=== PATIENT | male | born 1960 | race Caucasian/White ===

== ENCOUNTER 2019-06-14 05:43 | Inpatient (IN) ==
--- NOTE | 2019-06-06 14:45 | PAT Medication Instructions ---
Medication Instructions Date of Service June 06, 2019 Home Medications Combivent Respimat 2 puff INHALATION QID Jardiance 10 mg PO QAM Toujeo SoloStar U-300 Insulin 15 unit SUBCUT QPM Trulicity 0.75 mg SUBCUT WK albuterol sulfate 2 puff INHALATION QID NEEDED aspirin 325 mg PO QAM cilostazol 100 mg PO BID gabapentin [Neurontin] 800 mg PO BID lisinopril 40 mg PO QAM metformin 1,000 mg PO BID Chantix 1 tab PO BID Vitamin B12 1 tab PO QAM hydrocodone-acetaminophen 1 tab PO QID NEEDED Continue as directed Trulicity 0.75 mg SUBCUT WK ASK your surgeon for instructions aspirin 325 mg PO QAM cilostazol 100 mg PO BID DO NOT take the morning of surgery Jardiance 10 mg PO QAM lisinopril 40 mg PO QAM metformin 1,000 mg PO BID Chantix 1 tab PO BID Vitamin B12 1 tab PO QAM Take morning of surgery With a small sip of water, OTHERWISE NOTHING TO EAT OR DRINK AFTER MIDNIGHT: Combivent Respimat 2 puff INHALATION QID gabapentin [Neurontin] 800 mg PO BID albuterol sulfate 2 puff INHALATION QID NEEDED (if needed; bring to hospital) hydrocodone-acetaminophen 1 tab PO QID NEEDED (if needed; STOP 4 hours before surgery) Take evening before surgery Combivent Respimat 2 puff INHALATION QID Toujeo SoloStar U-300 Insulin 15 unit SUBCUT QPM gabapentin [Neurontin] 800 mg PO BID metformin 1,000 mg PO BID Chantix 1 tab PO BID albuterol sulfate 2 puff INHALATION QID NEEDED (if needed) hydrocodone-acetaminophen 1 tab PO QID NEEDED (if needed) Other Notes If you have any questions please call us at [phone] or [phone] or [phone] or [phone]
--- NOTE | 2019-06-06 14:51 | Anesthesiology Consultation ---
Date of Service June 06, 2019 Assessment & Plan (1) Encounter for pre-operative examination: - No previous anesthesia records. Chart Review Chart Review: Pending: Refer to Additional Notes / Consult section (Acceptable risk pending preop assessment from cardiology.) and Patient seen in Pre Admission Testing Consults Requested cardiac (Dr. Boswell (saw them last week)) Teaching & Discussion Pre-Anesthesia Teaching/Discussion Notes: Instructed NPO after midnight before surgery, except medications with 15 cc of water. Medication instructions provided according to the PAT guidelines. History Surgery Operation Date: 06/14/19 07:15 Proposed Procedures p Left Profundoplasty - Denis Alanis MD Height/Weight Height: 5 ft 10 in Weight: 110.5 kg Allergies Allergy/AdvReac Type Severity Reaction Status Date / Time Penicillins Allergy Severe THROAT Verified 05/30/19 11:27 SWELLS AND HIVES Medications Home Medications Medication Instructions Recorded Confirmed Last Taken Combivent Respimat 2 puff INHALATION QID 05/01/19 05/30/19 05/01/19 03:30 Jardiance 10 mg PO QAM 05/01/19 05/30/19 04/30/19 06:00 Reynaldo Perkins U-300 Insulin 15 unit SUBCUT QPM 05/01/19 05/30/19 04/30/19 19:00 Trulicity 0.75 mg SUBCUT WK 05/01/19 05/30/19 04/29/19 07:00 albuterol sulfate 2 puff INHALATION QID PRN 05/01/19 05/30/19 05/01/19 04:00 aspirin 325 mg PO QAM 05/01/19 05/30/19 04/30/19 08:00 cilostazol 100 mg PO BID 05/01/19 05/30/19 04/30/19 08:00 gabapentin [Neurontin] 800 mg PO BID 05/01/19 05/30/19 04/30/19 20:00 lisinopril 40 mg PO QAM 05/01/19 05/30/19 04/30/19 06:00 metformin 1,000 mg PO BID 05/01/19 05/30/19 04/29/19 18:00 Chantix 1 tab PO BID 05/30/19 05/30/19 Unknown Vitamin B12 1 tab PO QAM 05/30/19 05/30/19 Unknown hydrocodone-acetaminophen 1 tab PO QID PRN 05/30/19 05/30/19 Unknown Past Medical History Medical History Diverticulitis (Resolved) Arthritis Chronic back pain Chronic obstructive pulmonary disease Diabetes mellitus, type 2 Diabetic neuropathy, type II diabetes mellitus Hypertension SOB (shortness of breath) on exertion Sleep apnea CPAP HS 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 Poor balance. Slowly able to climb up stairs. Does report SOB/MARY with activity. Denies CP.) Past Family History Family History Mother Family history of diabetes mellitus Uncle Family history of diabetes mellitus Past Surgical History Surgical History H/O vascular surgery GRAFT-FROM CLAVICLE TO LEG? PER PT History of bowel resection WITH COLOSTOMY/REVERSAL LATER History of right hip replacement S/P femoral-popliteal bypass surgery X 2-LEFT LEG Past Anesthesia History No Hx of Anesthesia Complications and No Family Hx of Anesthesia Complications History of PONV No Hx of PONV and No Hx of Motion Sickness Social History Smoking Status: Current every day smoker tobacco type: cigarettes Smoking cigarettes per day: 16 Do You Dip or Chew Tobacco: Yes (5-6 small pouches per day (not cans) (Advised)) Smoking End Date: TRYING TO SMOKE WITH CHANTIX-DOWN TO LESS THAN 1 PPD-HAS SMOKED X 40 YRS Hx Alcohol Use: No Hx Substance Use: No substance use type: does not use and marijuana Last Used Substance Other:: ~1 week ago Review of Systems Patient denies chest pain, reflux, palpitations. +SOB/MARY/Wheezing/Cough (Due to COPD) +Joint Pain (Hip, Ankle) Physical Exam Vital Signs BP: 133/80 P: 100 R: 16 T: 98.1 SPO2: 94% on RA Constitutional + obese ENMT Mouth: + chipped teeth Thyromental Distance: < 3.5 Finger Breadths (3) Mallampati Class: II Neck normal visual inspection and + facial hair (Will trim); neck extension not limited Respiratory normal respiratory effort Auscultation: + wheezes (inspiratory and expiratory wheezes throughout) Cardiovascular Rate/Rhythm: regular rate and regular rhythm Heart Sounds: + murmur Vessels: no carotid bruit Neurologic moves all extremities Psychiatric Orientation: alert and oriented x 3 Testing Laboratory Results 06/06/19 15:52 06/06/19 15:52 PT 10.1 Seconds (9.0-12.0) 06/06/19 15:52 INR 1.0 (0.9-1.1) 06/06/19 15:52 APTT 25.6 Seconds (21.0-31.0) 06/06/19 15:52 Blood Type O Positive 06/06/19 15:52 Antibody Screen NEGATIVE 06/06/19 15:52 Electrocardiogram Date: 06/06/19 Findings: + NSR @ (91) Right axis deviation Low voltage QRS Cannot rule out anteroseptal infarct, age undetermined Chest X-Ray Date: 06/06/19 Findings: + NAD FINDINGS: Myocardial megaly. Diaphragms are smooth. Lungs are considered clear. Heart postoperative changes over the left anterior chest wall region IMPRESSION: Myocardial megaly. Chronic change. No acute process. Echocardiogram Date: 06/01/19 EF: 65% LV Function: normal RWMA: + none Other Findings: + LVH (Mild) Trace to mild mitral regurgitation Trace to mild tricuspid regurgitation Trace pulmonic insufficiency Normal pulmonary artery pressures Normal left ventricular diastolic function Stress Test Date: 06/01/19 Type: nuclear (Lexiscan - done for abnormal EKG and preop for profundoplasty) Resting EF: 65% Based upon EKG criteria, this test is negative Based upon the nuclear imaging findings, there is apical ischemia and no change from previous nuclear scan Study shows stability. It is comparable to previous studies.
--- NOTE | 2019-06-06 16:09 | XRay Report ---
XR chest Pre-admission PA/Lat CLINICAL HISTORY: pat preoperative evaluation COMPARISON STUDY: No previous studies for comparison. FINDINGS: Myocardial megaly. Diaphragms are smooth. Lungs are considered clear. Heart postoperative c hanges over the left anterior chest wall region IMPRESSION: Myocardial megaly. Chronic change. No acute process. The above report was generated using voice recognition software. It may contain grammatical, syntax or spelling errors. Electronically signed by: Ariel Sanders M.D. 06/06/2019 4:07 PM
[2019-06-06 16:21] LABS: BUN Creatinine Ratio 13.8 (10-20); Calcium 8.9 mg/dl (8.5-10.1); Creatinine Clr Calc Pharmacy 133.6 ml/min; Est GFR (African American) 117.2; Est GFR (Non-African American) 101.1; Potassium 4.3 mmol/L (3.5-5.1)
[2019-06-06 16:31] LABS: Partial Thromboplastin Ratio 0.9; Partial Thromboplastin Time 25.6 Seconds (21.0-31.0); Prothrombin Time 10.1 Seconds (9.0-12.0)
[2019-06-06 16:44] LABS: Basophils # (auto) 0.04 K/uL (0-0.2); Basophils % (auto) 0.5 %; Eosinophils # (auto) 0.08 K/uL (0-0.5); Hematocrit (blood only) 51.6 % (42-52); Hemoglobin 17.7 g/dL (14.0-18.0); Immature Granulocytes # (auto) 0.04 K/uL (0.00-0.02); Immature Granulocytes % (auto) 0.5 %; Lymphocytes # (auto) 1.98 K/uL (1.2-3.4); Lymphocytes % (auto) 25.4 %; Mean Corpuscular Hemoglobin 34.2 pg (25-34); Mean Corpuscular Hgb Conc 34.3 g/dL (32-36); Mean Corpuscular Volume 99.6 fL (80-100); Mean Platelet Volume 9.6 fL (7.4-10.4); Monocytes # (auto) 0.52 K/uL (0.11-0.59); Monocytes % (auto) 6.7 %; Neutrophils # (auto) 5.14 K/uL (1.4-6.5); Neutrophils % (auto) 65.9 %; Platelet Count 187 K/uL (130-400); RDW Coefficient of Variation 14.8 % (11.5-14.5); RDW Standard Deviation 54.2 fL (36.4-46.3); Red Blood Count 5.18 M/uL (4.7-6.1)
[2019-06-14] MEDS ORDERED: CLINDAMYCIN 600 MG/54 ML BAG IV SCH (06:00)
[2019-06-14] MEDS ORDERED: LR 15ML/HR IV SCH (06:00)
--- NOTE | 2019-06-14 06:00 | History & Physical Report ---
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 He is admitted for a left profundoplasty. I have discussed the risks options and benefits of the procedure with the patient. The patient understands the risks options and benefits and agrees to the procedure. History of Present Illness Chief Complaint: Left profunda femoral artery stenosis with foot ulcer Primary Care Provider: Luis Lemon Mr. Alegria is a very pleasant 59-year-old gentleman with a history of extensive peripheral arterial disease and bilateral lower extremity ischemia. He previously underwent a left axillary femoral artery bypass, a prior femoral to femoral artery bypass. These procedures were performed at an outside hospital. We most recently had been following him for a wound that he developed on his left medial malleolus. He underwent an angiography in April which was notable for a severe stenosis of the proximal profunda femoris artery. He presents today to discuss these imaging results, and to follow his wounds. He indicates that since we last saw him, he feels that the wound has been healing, albeit very slowly. He denies any fevers or chills. He indicates that the wound continues to be quite painful, particularly when he is walking on it. In addition, he feels that his right calf cramping with ambulation has been worse. He has not been able to make it to the wound care clinic, as he indicates that he has a lot of healthcare debt and cannot afford to take further time away from work for more doctors' visits. He continues to perform local wound care on a daily basis at home, consisting of gentle debridement in the shower, Xeroform, and a clean, dry gauze bandage. On physical examination, his vital signs were blood pressure 104/60, heart rate 93, oxygen saturation 97% on room air. He is resting comfortably and in no acute distress. He is accompanied by his . He is breathing comfortably on room air. He does have the occasional cough. He indicates that this is chronic and unchanged. His pulse is regular. His abdomen is obese, soft, nontender, nondistended. On the left lower extremity, he does have an approximately 2 cm oval ulceration over the left medial malleolus. This wound extends through the dermis. There is no bone visible at the wound. There is some fibrinous exudate over the wound. There is no necrosis noted. There is no tunneling of the wound. The wound is not malodorous. The left lower extremity does display some dependent rubor from the level of the toes up to the proximal ankle. There is no associated cellulitis. On Doppler, his pedal pulses are nonpalpable. On Doppler examination, there is a biphasic Doppler signal able to be identified over the PT. No AT or DP signal is able to be identified. In summary, this is a 59-year-old gentleman with an extensive history of PAD, currently with a left ax- fem and a fem-fem bypass. On the left, his profunda is his main runoff to the lower extremity. The SFA is completely occluded. Unfortunately, angiography performed a few weeks ago reveals a severe stenosis of the proximal profunda femoris artery. This is not amenable to endovascular intervention. While I do believe that he currently has blood flow down to the foot, I am concerned that his bypasses are threatened given the fact that his profunda is his only vessel providing outflow to the leg. In addition, I think that improving blood flow would help him to heal these wounds and return to work. In regards to wound care, I encouraged him to continue to try to go to the wound care clinic, at least for wound care recommendations that he can carry out at home. For now, I will write him for some Santyl. I instructed him to apply the Santyl daily. Over the Santyl, he should apply a clean, dry gauze dressing on a daily basis. In regards to the profunda stenosis, I would like to offer him a profundoplasty. 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 Once that is done, we can schedule him for a left profundoplasty. He knows to contact my office in the meantime if there are any questions or concerns. Thank you for allowing me to participate in the care of this patient. Please do not hesitate to contact my office with any questions or concerns. #[phone] I saw and evaluated the patient. Discussed with the resident and agree with the resident's findings and plan as documented in the resident's note. Signature Line Electronic Signature on File CC: Luis Lemon MD [address] [facility] [id number] * Allergies Allergy/AdvReac Type Severity Reaction Status Date / Time Penicillins Allergy Severe THROAT Verified 05/30/19 11:27 GE[place]IE Home Medications Home Medications Medication Instructions Recorded Confirmed Type Combivent Respimat 2 puff INHALATION QID 05/01/19 05/30/19 History Jardiance 10 mg PO QAM 05/01/19 05/30/19 History Toujeo SoloStar U-300 Insulin 15 unit SUBCUT QPM 05/01/19 05/30/19 History Trulicity 0.75 mg SUBCUT WK 05/01/19 05/30/19 History albuterol sulfate 2 puff INHALATION QID PRN 05/01/19 05/30/19 History aspirin 325 mg PO QAM 05/01/19 05/30/19 History cilostazol 100 mg PO BID 05/01/19 05/30/19 History gabapentin [Neurontin] 800 mg PO BID 05/01/19 05/30/19 History lisinopril 40 mg PO QAM 05/01/19 05/30/19 History metformin 1,000 mg PO BID 05/01/19 05/30/19 History Chantix 1 tab PO BID 05/30/19 05/30/19 History Vitamin B12 1 tab PO QAM 05/30/19 05/30/19 History hydrocodone-acetaminophen 1 tab PO QID PRN 05/30/19 05/30/19 History Past Med/Surg History Medical History Arthritis Chronic obstructive pulmonary disease Diabetes mellitus, type 2 Hypertension SOB (shortness of breath) on exertion Sleep apnea CPAP HS Diverticulitis (Resolved) Chronic back pain Diabetic neuropathy, type II diabetes mellitus 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 Beliefs That Will Affect Care: None Current Living Situation: Spouse Current Living Situation Comment: only Other Information That Helps Us Care for You: No Feels Safe at Home: Yes Safety Concerns: Feels Safe At This Time Smoking Status: Current every day smoker Tobacco Type: cigarettes ; Cigarettes Per Day: 16 ; Do You Dip or Chew Tobacco: Yes (5-6 small pouches per day (not cans) (Advised)) ; Smoking End Date: TRYING TO SMOKE WITH CHANTIX-DOWN TO LESS THAN 1 PPD-HAS SMOKED X 40 YRS ; Second Hand Exposure: Yes (SPOUSE SMOKES) ; Hx Alcohol Use: No Hx Substance Use: No Review of Systems All systems reviewed & are unremarkable except as noted in HPI & below
[2019-06-14] MEDS ORDERED: NovoLIN-R INSULIN PER UNIT CHARGE ONE (06:53)
[2019-06-14] MEDS ORDERED: NovoLIN-R INSULIN PER UNIT CHARGE IV STA (06:56)
[2019-06-14] MEDS ORDERED: HEPARIN (PORCINE) 1000 UNIT/ML 10 ML (CATH LAB USE ONLY) ONE (07:03)
[2019-06-14] MEDS ORDERED: THROMBIN 5000 UNITS KIT ONE (07:04)
[2019-06-14] MEDS ORDERED: CEFAZOLIN 250 MG/ML 1 GM VIAL ONE (07:04)
[2019-06-14] MEDS ORDERED: BUPIVACAINE/EPINEPHRINE 0.5% MPF 1:200,000 30 ML VIAL ONE (07:04)
[2019-06-14] MEDS ORDERED: IODIXANOL (VISIPAQUE) 270 MG/ML 50ML ONE ×2 (07:04→07:06)
[2019-06-14] MEDS ORDERED: LIDOCAINE HCL 1% 20 ML VIAL ONE (07:04)
[2019-06-14] MEDS ORDERED: PAPAVERINE HCL INJ 30 MG/ML 2 ML VIAL ONE (07:04)
[2019-06-14] MEDS ORDERED: GELATIN SPONGE SZ 100 ONE (07:05)
[2019-06-14] MEDS ORDERED: MIDAZOLAM HCL 1 MG/ML 2ML VIAL ONE (07:12)
[2019-06-14] MEDS ORDERED: PROPOFOL IV EMULSION 10 MG/ML 20 ML VIAL IV ONE (07:12)
[2019-06-14] MEDS ORDERED: ROCURONIUM BROMIDE 10 MG/ML 5 ML VIAL ONE (07:12)
[2019-06-14] MEDS ORDERED: fentaNYL citrate 100 MCG/2 ML VIAL ONE ×2 (07:12→08:07)
[2019-06-14] MEDS ORDERED: LIDOCAINE HCL 2% 2 ML VIAL/AMP(20MG/ML) INFIL ONE (07:12)
--- NOTE | 2019-06-14 07:13 | History & Physical Bridge Note ---
Date of Service June 14, 2019 History & Physical Bridge Note I have examined the patient, reviewed the History & Physical and in the interval since the performance of the History & Physical I have noted the following changes of clinical significance: no changes noted
[2019-06-14] MEDS ORDERED: BACITRACIN INJ 50,000 UNIT VIAL ONE (07:46)
[2019-06-14] MEDS ORDERED: HEPARIN SOD (PORCINE) 1000 UNIT/ML 10 ML VIAL ONE (08:52)
[2019-06-14] MEDS ORDERED: PHENYLEPHRINE 100MCG/ML 5ML SYR ONE (08:52)
[2019-06-14] MEDS ORDERED: ESMOLOL HCL INJ 10 MG/ML 10ML VIAL IV ONE (08:52)
[2019-06-14] MEDS ORDERED: ONDANSETRON INJ 2 MG/ML 2 ML VIAL ONE (08:52)
[2019-06-14] MEDS ORDERED: PHENYLEPHRINE HCL 10 MG/ML VIAL ONE (08:52)
[2019-06-14] MEDS ORDERED: GLYCOPYRROLATE 0.2 MG/ML VIAL ONE (09:59)
[2019-06-14] MEDS ORDERED: NEOSTIGMINE METHYLSULFATE 5 MG/5 ML SYR ONE (09:59)
[2019-06-14] MEDS ORDERED: PROTAMINE SULFATE 10 MG/ML 5 ML VIAL ONE (10:07)
[2019-06-14] MEDS ORDERED: MoRPHine SULFATE 4 MG/ML 1 ML CARP\\VIAL IV PRN (10:30)
[2019-06-14] MEDS ORDERED: ONDANSETRON INJ 2 MG/ML 2 ML VIAL IV PRN ×2 (10:30→10:59)
--- NOTE | 2019-06-14 10:30 | Post Operative Brief Note ---
Immediate Post Op Note v1 Date of Surgery June 14, 2019 Pre & Post Diagnosis Operation Date: 06/14/19 07:30 Pre-Op Diagnosis: Left profunda artery stenosis. Post-Op Diagnosis: Left profunda artery stenosis. Procedure Operation Date: 06/14/19 07:30 Actual Procedures p Left Profunda femoral bypass prosthesis(Left) - Denis Alanis MD s Superficial Debridement of Left Foot Wound(Left) - Denis Alanis MD Surgeon Denis Alanis MD Collator Hand MD Ana Maria VencesMinarchick,PAC Estimated Blood Loss 50 Findings Consistent with Post-Op Diagnosis Drains Santos Catheter Anesthesia Type General Complications none Disposition Accompanied Patient To Recovery: No Disposition: Recovery Room
--- NOTE | 2019-06-14 10:43 | Operative Report ---
Post Operative Report Pre & Post Diagnosis Operation Date: 06/14/19 07:30 Pre-Op Diagnosis: Left profunda artery stenosis. Post-Op Diagnosis: Left profunda artery stenosis. Procedure Operation Date: 06/14/19 07:30 Actual Procedures p Left Profunda femoral bypass prosthesis(Left) - Denis Alanis MD s Superficial Debridement of Left Foot Wound(Left) - Denis Alanis MD Surgeon Denis Alanis MD Credit Review Analyst MD Anderson Vences,PAC Estimated Blood Loss 50 Findings Consistent with Post-Op Diagnosis Specimens None Description of Procedure Indications: Gustavo Jones is a 59yo gentleman with a long standing history of PAD and prior Ax-bifemoral bypass. He presented to clinic with a non-healing wound on his left ankle and due to concern that impaired blood flow was impeding this, a angiogram was preformed. This noted a patent Ax-Bifemoral bypass with complete occlusion of the L SFA and severe stenosis L profunda. As this was the only outflow of his Ax-Fem on the left, there was concern that the graft was in danger of thrombosis. The decision was made to preform a profundaplasty to improve outflow. The risks and benefits of the procedure were explained to the patient and consent was obtained. The left leg was marked prior to the patient in the operating theater. Operative Details: Patient was positioned supine on the operating table with his arms out. General anesthesia was induced and the patient was safely intubated. At this time an arterial mom are in line was placed along with a Santos catheter. The left groin was then prepped and sterilely draped in the standard fashion. A Surgical timeout was performed at this time and the patient was identified. A vertical incision was then made with a #10 blade in the left groin following the patient's prior incision and extending presently 15 cm. Electrocautery was then used to carry the incision down through the subcutaneous tissues and scar. It should be noted that the area was densely scarred from his 2 prior operations. Due to this dissection was continued sharply until the SFA was encountered distally, this was noted to be densely calcified. Dissection was then carried proximally at the SFA until the profunda was encountered. During dissection of the profunda became necessary to take 3 small branches of the deep femoral vein. These were isolated and doubly ligated before being divided. Once we felt that adequate exposure of the profunda had been obtained our attention then was brought to dissecting out patient's axillofemoral graft in the groin. The graft was easily palpable in the superior portion of the incision and sharp dissection was used to sufficient length and been freed and circumferentially isolated. At this time the patient was systemically heparinized with 8000 units of IV heparin. Profunda was clamped proximally and distally. Arteriotomy was made using #11 blade and extended to 10 mm using curved Camara scissors. A 6 mm x 15 cm [place]Richard graft was beveled to an appropriate length. The distal anastomosis was completed using 5-0 Prolene suture without issue. There is moderate backbl eeding from the graft after unclamping the artery. Proximal graft was then clamped there is noted to be some bleeding from the heel of the anastomosis. This was controlled using a 5-0 Prolene in [id number] fashion. Gel thrombin was then placed around the anastomosis and we proceeded to begin the proximal anastomosis. Patient's in situ graft was clamped proximally and distally at this time. A graftotomy was made using a #11 blade of approximally 12mm. The proximal end of the [place]Richard graft was beveled appropriately and anastomosed to in-situ graft using CV-5 suture. Prior to completing the anastomosis the vessel was flushed to remove any air. After tying down the suture there was no evidence of bleeding from the anastomosis. The distal anastomosis was then inspected again. While there was no bleeding from the the anastomosis it self, there as noted to be bleeding coming from a branch of the deep femoral. This was controlled with a 5-0 Prolene figure of eight stitch. At this time there was noted to be a visible pulse in the graft, along with Doppler signals distal to the profunda anastomosis with diminished with occlusion of our new graft. . The wound was irrigated and additional hemostasis was achieved using electrocautery. Once we were satisfied that there was no further bleeding, we proceeded to close the wound in layers. First the deep scar and femoral sheath was reapproximated using 2-0 Vicryl, next the superficial subcutaneous tissues were brought together using 3-0 Vicryl. The skin was then reapproximated using a skin stapler. At this time the patient had Doppler singals at the foot. The wound was dressed with 4x4 and Medipore tape. We undraped the left foot to exam the on the medial malleolus, it was noted to be relatively clean. This was prepped with Betadine and the wound was debrided with a Curette to healthy tissue. Upon completing this it was dressed with gauze and tape. All sponge, needle and instrument counts were correct at this time. The patient was awoken from general anesthesia and safely extubated. He was transferred to PACU in good condition, with his Santos and [place] still in place. Dr. Alanis was present for all portions of the above procedure. I attest to the content of the Intraoperative Record and any orders documented therein. Any exceptions are noted below.
[2019-06-14] MEDS ORDERED: ALBUTEROL HFA INHALER 8.5 GM ONE (10:58)
[2019-06-14] MEDS ORDERED: PROMETHAZINE HCL 12.5 MG in SODIUM CHLORIDE 0.9% 50 ML IV PRN (10:59)
[2019-06-14] MEDS ORDERED: ePHEDrine sulfate 50 MG/ML AMP IV PRN (10:59)
[2019-06-14] MEDS ORDERED: ATROPINE SULFATE 0.1 MG/ML 10ML SYR IV PRN (10:59)
[2019-06-14] MEDS ORDERED: ALBUTEROL 0.083% NEBU SOLN 3 ML VIAL INH PRN (10:59)
[2019-06-14] MEDS ORDERED: FLUMAZENIL 0.1 MG/1 ML 10 ML VIAL IV PRN (10:59)
[2019-06-14] MEDS ORDERED: NALOXONE HCL 0.4 MG/1 ML VIAL/CARP IV PRN (10:59)
[2019-06-14] MEDS ORDERED: LABETALOL HCL IV 5 MG/ML 20ML IV PRN (10:59)
[2019-06-14] MEDS: fentaNYL citrate 100 MCG/2 ML VIAL IV PRN ×3 (11:38→11:48)
--- NOTE | 2019-06-14 11:39 | Anesthesiology Progress Note ---
Date of Service June 14, 2019 Anesthesia Post Procedure Vital Signs Vital Signs: Temp Pulse Pulse Resp BP BP Pulse Ox 06/14/19 11:25 102 H 18 95/56 L 97 06/14/19 11:15 96 H 18 96/54 L 91 06/14/19 11:08 100 H 16 96 06/14/19 11:05 100 H 18 98/55 L 98 06/14/19 10:55 105 H 18 103/59 L 96 06/14/19 10:48 36.5 C 110 H 18 114/62 95 06/14/19 06:43 36.8 C 99 H 20 142/81 H 92 Pain Intensity Left Leg: Pain Intensity: 3 Transfer of Care Handoff Completed per policy Notes Mental Status: alert / awake / arousable Patient Amnestic to Procedure: Yes Nausea / Vomiting: adequately controlled Pain: adequately controlled Airway Patency, RR, SpO2: stable & adequate BP & HR: stable & adequate Hydration State: stable & adequate Anesthetic Complications: no major complications apparent
[2019-06-14 11:45] LABS: Basophils # (auto) 0.03 K/uL (0-0.2); Basophils % (auto) 0.4 %; Eosinophils # (auto) 0.04 K/uL (0-0.5); Eosinophils % (auto) 0.5 %; Hematocrit (blood only) 50.9 % (42-52); Hemoglobin 16.9 g/dL (14.0-18.0); Immature Granulocytes # (auto) 0.05 K/uL (0.00-0.02); Immature Granulocytes % (auto) 0.6 %; Lymphocytes # (auto) 1.49 K/uL (1.2-3.4); Lymphocytes % (auto) 18.3 %; Mean Corpuscular Hemoglobin 33.3 pg (25-34); Mean Corpuscular Hgb Conc 33.2 g/dL (32-36); Mean Corpuscular Volume 100.4 fL (80-100); Mean Platelet Volume 9.1 fL (7.4-10.4); Monocytes # (auto) 0.66 K/uL (0.11-0.59); Monocytes % (auto) 8.1 %; Neutrophils # (auto) 5.88 K/uL (1.4-6.5); Neutrophils % (auto) 72.1 %; Platelet Count 167 K/uL (130-400); RDW Coefficient of Variation 15.1 % (11.5-14.5); RDW Standard Deviation 55.3 fL (36.4-46.3); Red Blood Count 5.07 M/uL (4.7-6.1); White Blood Count 8.15 K/uL (4.8-10.8)
[2019-06-14] MEDS ORDERED: ALBUTEROL HFA 8 GM INHALER INH PRN (12:40)
[2019-06-14] MEDS ORDERED: GLUCOSE 10 TABS/TUBE PO PRN (14:15)
[2019-06-14] MEDS ORDERED: DEXTROSE 50% 50 ML SYRINGE IV PRN (14:15)
[2019-06-14] MEDS ORDERED: GLUCAGON FOR INJ 1 MG VIAL IM PRN (14:15)
[2019-06-14] MEDS ORDERED: CARBOHYDRATES FOR HYPOGLYCEMIA PO PRN (14:15)
[2019-06-14] MEDS ORDERED: GLUCOSE 40% GEL 15 GM TUBE PO PRN (14:15)
[2019-06-14] MEDS: IPRATROPIUM BROMIDE/ALBUTEROL respimat INH INH SCH ×3 (14:28→21:21)
[2019-06-14] MEDS: OXYCODONE/ACETAMINOPHEN 5mg/325mg TAB PO PRN ×3 (14:31→23:02)
[2019-06-14] MEDS: CLINDAMYCIN 600 MG in DEXTROSE 5% 50 ML IV SCH (17:25)
[2019-06-14] MEDS: INSULIN ASPART 100 UNITS/ML 3 ML PEN SC SCH ×2 (18:30→21:23)
[2019-06-14] MEDS ORDERED: INSULIN GLARGINE SOLOSTAR 100 UNITS/ML 3 ML PEN SQ SCH (21:00)
[2019-06-14] MEDS: CILOSTAZOL 100 MG TAB PO SCH (21:19)
[2019-06-14] MEDS: GABAPENTIN 800 MG TAB PO SCH (21:20)
[2019-06-15] MEDS: CLINDAMYCIN 600 MG in DEXTROSE 5% 50 ML IV SCH ×2 (01:25→08:52)
[2019-06-15] MEDS: OXYCODONE/ACETAMINOPHEN 5mg/325mg TAB PO PRN ×2 (03:23→08:47)
[2019-06-15 06:08] LABS: Basophils # (auto) 0.03 K/uL (0-0.2); Basophils % (auto) 0.2 %; Eosinophils # (auto) 0.02 K/uL (0-0.5); Eosinophils % (auto) 0.1 %; Hematocrit (blood only) 50.3 % (42-52); Hemoglobin 16.9 g/dL (14.0-18.0); Immature Granulocytes # (auto) 0.04 K/uL (0.00-0.02); Immature Granulocytes % (auto) 0.3 %; Lymphocytes # (auto) 1.15 K/uL (1.2-3.4); Lymphocytes % (auto) 8.5 %; Mean Corpuscular Hemoglobin 34.4 pg (25-34); Mean Corpuscular Hgb Conc 33.6 g/dL (32-36); Mean Corpuscular Volume 102.4 fL (80-100); Mean Platelet Volume 9.2 fL (7.4-10.4); Monocytes % (auto) 7.4 %; Neutrophils # (auto) 11.29 K/uL (1.4-6.5); Neutrophils % (auto) 83.5 %; Platelet Count 172 K/uL (130-400); RDW Standard Deviation 56.6 fL (36.4-46.3); Red Blood Count 4.91 M/uL (4.7-6.1); White Blood Count 13.53 K/uL (4.8-10.8)
[2019-06-15] MEDS: IPRATROPIUM BROMIDE/ALBUTEROL respimat INH INH SCH ×2 (07:59→13:51)
[2019-06-15] MEDS: GABAPENTIN 800 MG TAB PO SCH (08:00)
[2019-06-15] MEDS: CILOSTAZOL 100 MG TAB PO SCH (08:00)
--- NOTE | 2019-06-15 08:23 | Surgery Progress Note ---
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 Better today. Physical Exam Physical Exam: Groin incision dry and clean. Good doppler PT on right Constitutional: WD/WN, vitals as above Results & Data Vital Signs (Past 12 Hours) Vital Signs Temp Pulse Resp BP Pulse Ox 06/15/19 07:07 36.2 C L 95 H 18 123/70 94 06/15/19 02:59 36.5 C 103 H 20 147/76 H 93 06/14/19 23:11 36.6 C 94 H 18 124/70 92
[2019-06-15] MEDS: INSULIN ASPART 100 UNITS/ML 3 ML PEN SC SCH ×2 (08:49→12:33)
[2019-06-15] MEDS ORDERED: CYANOCOBALAMIN 500 MCG TABLET (VITAMIN B-12) PO SCH (09:00)
[2019-06-15] MEDS ORDERED: LISINOPRIL 40 MG TAB PO SCH (09:00)
[2019-06-15] MEDS ORDERED: ASPIRIN 325 MG ECTAB PO SCH (09:00)
--- NOTE | 2019-06-15 10:42 | Anesthesiology Progress Note ---
Date of Service June 15, 2019 Anesthesia Post Procedure Vital Signs Vital Signs: Temp Pulse Pulse Resp BP BP Pulse Ox 06/15/19 09:47 36.2 C L 76 76 18 106/68 123/70 94 06/15/19 07:07 36.2 C L 95 H 18 123/70 94 06/15/19 02:59 36.5 C 103 H 20 147/76 H 93 06/14/19 23:11 36.6 C 94 H 18 124/70 92 06/14/19 19:11 37.1 C 91 H 18 110/60 94 06/14/19 15:38 36.3 C L 96 H 16 106/68 96 06/14/19 14:25 36.4 C L 95 H 16 100/63 92 06/14/19 13:29 37.1 C 103 H 15 126/72 91 06/14/19 12:53 91 H 16 97/60 L 91 06/14/19 12:20 36.7 C 97 H 16 98/60 L 98 06/14/19 12:06 36.9 C 06/14/19 11:55 93 H 18 106/59 L 96 06/14/19 11:45 37.2 C 95 H 18 109/57 L 96 06/14/19 11:35 101 H 18 91/55 L 94 06/14/19 11:25 102 H 18 95/56 L 97 06/14/19 11:15 96 H 18 96/54 L 91 06/14/19 11:08 100 H 16 96 06/14/19 11:05 100 H 18 98/55 L 98 06/14/19 10:55 105 H 18 103/59 L 96 06/14/19 10:48 36.5 C 110 H 18 114/62 95 Pain Intensity Left Leg: Pain Intensity: 7 Notes Mental Status: alert / awake / arousable and participated in evaluation Patient Amnestic to Procedure: Yes Nausea / Vomiting: adequately controlled Pain: adequately controlled Airway Patency, RR, SpO2: stable & adequate BP & HR: stable & adequate Hydration State: stable & adequate Anesthetic Complications: no major complications apparent and Pt Satisfied with anesthetic care
[2019-06-15 11:39] LABS: Estimated Average Glucose 192 mg/dl; Hemoglobin A1C 8.3 % (4.5-5.6)
[2019-06-17] MEDS ORDERED: METFORMIN HCL 500 MG TAB PO SCH (08:00)
--- NOTE | 2019-06-20 12:38 | Discharge Summary ---
Date of Service June 20, 2019 Admission HPI Per Admitting Provider Mr. Alegria is a very pleasant 59-year-old gentleman with a history of extensive peripheral arterial disease and bilateral lower extremity ischemia. He previously underwent a left axillary femoral artery bypass, a prior femoral to femoral artery bypass. These procedures were performed at an outside hospital. We most recently had been following him for a wound that he developed on his left medial malleolus. He underwent an angiography in April which was notable for a severe stenosis of the proximal profunda femoris artery. He presents today to discuss these imaging results, and to follow his wounds. He indicates that since we last saw him, he feels that the wound has been healing, albeit very slowly. He denies any fevers or chills. He indicates that the wound continues to be quite painful, particularly when he is walking on it. In addition, he feels that his right calf cramping with ambulation has been worse. He has not been able to make it to the wound care clinic, as he indicates that he has a lot of healthcare debt and cannot afford to take further time away from work for more doctors' visits. He continues to perform local wound care on a daily basis at home, consisting of gentle debridement in the shower, Xeroform, and a clean, dry gauze bandage. Admission Exam Per Admitting Provider On physical examination, his vital signs were blood pressure 104/60, heart rate 93, oxygen saturation 97% on room air. He is resting comfortably and in no acute distress. He is accompanied by his . He is breathing comfortably on room air. He does have the occasional cough. He indicates that this is chronic and unchanged. His pulse is regular. His abdomen is obese, soft, nontender, nondistended. On the left lower extremity, he does have an approximately 2 cm oval ulceration over the left medial malleolus. This wound extends through the dermis. There is no bone visible at the wound. There is some fibrinous exudate over the wound. There is no necrosis noted. There is no tunneling of the wound. The wound is not malodorous. The left lower extremity does display some dependent rubor from the level of the toes up to the proximal ankle. There is no associated cellulitis. On Doppler, his pedal pulses are nonpalpable. On Doppler examination, there is a biphasic Doppler signal able to be identified over the PT. No AT or DP signal is able to be identified. Principal Diagnosis 1. s/p L femoral to profunda artery prosthetic bypass graft and debridement of L ankle wound 2. Severe PAD with l profunda artery occlusion and nonhealing LLE ankle wound Discharge Exam Constitutional WD/WN, vitals as above Respiratory normal respiratory effort, lungs clear to auscultation Cardiovascular RRR, no murmur, no edema Gastrointestinal (Abdomen) normal bowel sounds, soft, nontender, no hepatosplenomegaly Musculoskeletal no cyanosis or clubbing, extremities motor strength 5/5 (L groin wound C/D/I w freedom. + local ecchymosis, tender, edema) Skin normal turgor and + wound (L ankle wound appears shallow and healthy) Neurologic moves all extremities and awake; no focal motor deficits and not confused Psychiatric A+Ox3, euthymic affect Discharge Data Allergies Allergy/AdvReac Type Severity Reaction Status Date / Time Penicillins Allergy Severe THROAT Verified 06/14/19 06:24 KEVEN AND KENYETTA Consultations 06/15/19 08:00 Consult Case Management - Discharge Planning Routine Procedures Performed Operation Date: 06/14/19 07:30 Actual Procedures p Left Profunda femoral bypass prosthesis(Left) - Denis Alanis MD s Superficial Debridement of Left Foot Wound(Left) - Denis Alanis MD Hospital Course (1) Atherosclerosis of artery of extremity with ulceration: Pt underwent uncomplicated vascular procedure. 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 [Primary Care Provider] - Diet: Carb Consistent or DM2 and Heart Healthy Addtl Provider Instructions: ACTIVITY RECOMMENDATIONS: See Above SPECIAL CARE INSTRUCTIONS: Call your doctor if: * Temperature above 101 degrees * Pain not relieved by pain medicine ordered * There is increased drainage or redness from any incision * You have any unanswered questions or concerns. Continue same care of ankle wound as pre op Call [phone] to schedule a follow up appointment if one not already scheduled. Prescriptions: New oxycodone-acetaminophen [Percocet] 5-325 mg tablet 1 tab PO Q6H PRN (Reason: pain) Qty: 30 RF: 0 Continued lisinopril 40 mg Tablet 40 mg PO QAM RF: 0 cilostazol 100 mg Tablet 100 mg PO BID RF: 0 gabapentin [Neurontin] 800 mg Tablet 800 mg PO BID RF: 0 Trulicity 0.75 mg/0.5 mL Pen Injector 0.75 mg SUBCUT WK RF: 0 Toujeo SoloStar U-300 Insulin 300 unit/mL (1.5 mL) Insulin Pen 15 unit SUBCUT QPM RF: 0 aspirin 325 mg Tablet 325 mg PO QAM RF: 0 metformin 1,000 mg Tablet 1,000 mg PO BID RF: 0 albuterol sulfate 90 mcg/actuation Hfa Aerosol Inhaler 2 puff INHALATION QID PRN (Reason: Shortness Of Breath) RF: 0 Jardiance 10 mg Tablet 10 mg PO QAM RF: 0 Combivent Respimat 20-100 mcg/actuation Mist 2 puff inhalation QID RF: 0 Vitamin B12 1 tab PO QAM RF: 0 hydrocodone-acetaminophen 10-325 mg Tablet 1 tab PO QID PRN (Reason: Pain) RF: 0 Chantix 1 tab PO BID RF: 0 Stand-Alone Forms: [employer] [facility] [employer], Opioid Pain Management Discharge Orders: Discharge Order (Routine); Ordered 06/15/19 Ordered By: Denis Alanis Admission Data Admit Date/Time: 06/14/19 10:34 Attending Provider: Denis Alanis Admit Provider: Denis Alanis Primary Care Provider: Luis Lemon Service: Surgical Services Other Interventions: Discharge Summary Assessment (RN) Last Done: 06/15/19 09:47 DC Date/Time DO NOT enter until pt leaves facility: 06/15/19 14:07
== END 2019-06-15 14:07 | disposition home or self-care (01) | DRG 253 ==
LOC: ASU 05:43 → 3N 10:34
DX: Z88.0 Allergy status to penicillin; J44.9 Chronic obstructive pulmonary disease, unspecified; Z79.82 Long term (current) use of aspirin; F17.210 Nicotine dependence, cigarettes, uncomplicated; L97.309 Non-pressure chronic ulcer of unspecified ankle with unspecified severity; I70.92 Chronic total occlusion of artery of the extremities; I70.243 Atherosclerosis of native arteries of left leg with ulceration of ankle; F17.220 Nicotine dependence, chewing tobacco, uncomplicated; L97.529 Non-pressure chronic ulcer of other part of left foot with unspecified severity; E11.51 Type 2 diabetes mellitus with diabetic peripheral angiopathy without gangrene; Z95.828 Presence of other vascular implants and grafts; E11.40 Type 2 diabetes mellitus with diabetic neuropathy, unspecified; I10 Essential (primary) hypertension; Z83.3 Family history of diabetes mellitus; G47.30 Sleep apnea, unspecified; Z79.899 Other long term (current) drug therapy; Z79.4 Long term (current) use of insulin

== ENCOUNTER 2019-07-12 13:48 | Inpatient (IN) ==
[2019-07-12] MEDS ORDERED: SODIUM CHLORIDE 0.9% 1000ML 1,000 ML IV ONE (14:59)
--- NOTE | 2019-07-12 15:25 | XRay Report ---
XR chest 1V portable CLINICAL HISTORY: weakness COMPARISON STUDY: Chest radiograph June 06, 2019. FINDINGS: Lung volumes are normal. Lungs are clear. There is no pneumothorax or pleural effusion. Car diac size is normal. Mediastinal contours are normal. There is no evidence for pulmonary edema. Surgi saundra clips project over the left axilla. IMPRESSION: No acute cardiopulmonary findings. Electronically signed by: Florian Main M.D. 07/12/2019 3:23 PM
[2019-07-12] MEDS ORDERED: ACETAMINOPHEN 325 MG TAB PO PRN (15:33)
[2019-07-12] MEDS ORDERED: NITROGLYCERIN SL 0.4 MG/TAB TAB SL PRN (15:33)
[2019-07-12 15:35] LABS: Basophils # (auto) 0.04 K/uL (0-0.2); Basophils % (auto) 0.4 %; Eosinophils # (auto) 0.02 K/uL (0-0.5); Eosinophils % (auto) 0.2 %; Hematocrit (blood only) 42.4 % (42-52); Hemoglobin 14.3 g/dL (14.0-18.0); INR 1.1 (0.9-1.1); Immature Granulocytes # (auto) 0.04 K/uL (0.00-0.02); Immature Granulocytes % (auto) 0.4 %; Lymphocytes # (auto) 1.66 K/uL (1.2-3.4); Lymphocytes % (auto) 16.4 %; Mean Corpuscular Hemoglobin 32.8 pg (25-34); Mean Corpuscular Hgb Conc 33.7 g/dL (32-36); Mean Corpuscular Volume 97.2 fL (80-100); Mean Platelet Volume 9.1 fL (7.4-10.4); Monocytes # (auto) 0.74 K/uL (0.11-0.59); Monocytes % (auto) 7.3 %; Neutrophils # (auto) 7.64 K/uL (1.4-6.5); Neutrophils % (auto) 75.3 %; Platelet Count 251 K/uL (130-400); RDW Coefficient of Variation 14.4 % (11.5-14.5); RDW Standard Deviation 51.7 fL (36.4-46.3); Red Blood Count 4.36 M/uL (4.7-6.1); White Blood Count 10.14 K/uL (4.8-10.8)
[2019-07-12] MEDS ORDERED: ALBUTEROL HFA 8 GM INHALER INH PRN (15:39)
[2019-07-12] MEDS ORDERED: OPTIRAY 320 125ml IV PRN (15:46)
[2019-07-12 15:48] LABS: Alanine Aminotransferase 9 U/L (12-78); Albumin Level 2.8 gm/dl (3.4-5.0); Aspartate Aminotransferase 12 U/L (15-37); BUN Creatinine Ratio 16.7 (10-20); Blood Urea Nitrogen 14 mg/dl (7-18); Calcium 8.7 mg/dl (8.5-10.1); Carbon Dioxide 25 mmol/L (21-32); Chloride 101 mmol/L (98-107); Creatinine Clr Calc Pharmacy 122.3 ml/min; Est GFR (African American) 110.8; Est GFR (Non-African American) 95.6; Glucose 208 mg/dl (70-99); Magnesium 2.3 mg/dl (1.8-2.4); Potassium 4.2 mmol/L (3.5-5.1); Sodium 134 mmol/L (136-145)
[2019-07-12 15:58] LABS: Albumin Globulin Ratio 0.6 (0.9-2); Alkaline Phosphatase 60 U/L (45-117); Bilirubin,Total 0.7 mg/dl (0.2-1); Globulin 4.3 gm/dl (2.5-4.0); Total Protein 7.1 gm/dl (6.4-8.2); Troponin I < 0.015 ng/ml (0-0.045)
--- NOTE | 2019-07-12 16:33 | CT Scan Report ---
CT ANGIOGRAPHY OF THE LEFT LOWER EXTREMITY CLINICAL HISTORY: bypass graft in groin, bleeding--with only COMPARISON STUDY: CTA, including runoff April 21, 2019. TECHNIQUE: Axial images from the aortic bifurcation through the left foot were obtained following int ravenous injection of 117 cc Optiray 320 IV. Sagittal and coronal reconstructed reviewed as well as m aximal intensity projections on an independent 3-D workstation. Automated exposure control was utiliz ed for the study. A dose lowering technique was utilized adhering to the principles of ALARA. FINDINGS: The bladder is distended. Right hip arthroplasty is noted. Caliber and wall thickness of vi sualized small and large bowel are normal. Left common iliac artery stent is patent. There is severe stenosis of the left external iliac artery as well as the left common femoral artery which is unchang ed. There is severe stenosis at the origin of the left profunda. Left SFA stent is occluded as before . A left axillary bifemoral bypass graft is partially imaged. As before, the [place] right superficial femoral artery is occluded. The right profunda is patent. Visualized portions are patent. Interval l eft profunda bypass is noted. Gas within the left groin is noted. There are multiple fluid collection s which measure up to 4.1 cm. These favor hematomas. No pseudoaneurysm is identified. There is modera te narrowing of the left profunda graft and equivocal minimal thrombus within the distal aspect of th e graft. Reconstitution at the level of the left popliteal artery is again noted. Severe stenosis of the left popliteal artery is noted. There is stenosis at the origin of the left posterior tibial francine ry which is otherwise patent. This is patent the level of the left foot. Severe stenoses within the l eft anterior tibial artery are noted with several sites of suspected occlusion and reconstitution. Se ubaldo stenosis at origin of the left peroneal artery is noted. IMPRESSION: 1. Status post interval left groin profunda bypass. Graft narrowed but patent. Apparent small filling defect within the distal aspect of the bypass graft. Artifact is favored however a small intralumina l thrombus could appear similar. No pseudoaneurysm. Several left groin fluid collections which favor hematomas. Moderate gas within the left groin may be due to the open wound. A superimposed infection is considered less likely but could appear similar. 2. Visualized portions of left axillobifemoral bypass graft patent. Redemonstration of stenosis at or igin of the left profunda. Occluded left SFA stent with reconstitution at the level of the left popli teal artery with stenoses within the left popliteal artery and left calf vessels with left foot large ly supplied through the posterior tibial artery. Electronically signed by: Florian Main M.D. 07/12/2019 4:31 PM
--- NOTE | 2019-07-12 16:49 | Emergency Department Note ---
Entered by Nicole Gracia acting as a scribe for Calderon Pate MD History of Present Illness General Chief complaint: Bleeding Stated complaint: BLEEDING AT SURGICAL INCISION Time Seen by Provider: 07/12/19 14:51 Source: patient History of Present Illness Onset (ago): week(s) 1 Location: head (Bleeding) Pain Consistency: + other (Worsening) Maximum Pain Intensity: 5 Quality: + other (Bleeding) Exacerbated By: + movement Associated symptoms: + shortness of breath and + weakness; no other (pain to surgical site) Treatments prior to arrival: none The patient is a 59 year old male who presents to the Emergency Department complaining of worsening bleeding starting 1 week ago. The patient reports that he had bypass surgery done 1 month ago and about 1 week ago his incision began to bleed. He states that he went to see Dr. Alanis vascular surgeon who did his surgery 6 days ago who told the patient that he had a hematoma after diagnosing it with US. He explains that this hematoma burst 6 days ago and has not stopped bleeding since. He adds that he feels very weak and becomes short of breath. He states that when he walks around his symptoms worsen. The patients reports that she called Dr. Alanis's office for the patients symptoms and was told that the patient needs to follow up with his PCP. She states that she then called the patients PCP who did not call back which is why she brought the patient into the ED today. She notes that the patient is currently taking Aspirin and Pletal. The patient denies any pain to his surgical site. Home Medications Home Medications Medication Instructions Recorded Confirmed Type Combivent Respimat 2 puff INHALATION QID 05/01/19 07/12/19 History Jardiance 10 mg PO QAM 05/01/19 07/12/19 History Toujeo SoloStar U-300 Insulin 15 unit SUBCUT QPM 05/01/19 07/12/19 History Trulicity 0.75 mg SUBCUT WK 05/01/19 07/12/19 History albuterol sulfate 2 puff INHALATION QID PRN 05/01/19 07/12/19 History aspirin 325 mg PO QAM 05/01/19 07/12/19 History cilostazol 100 mg PO BID 05/01/19 07/12/19 History gabapentin [Neurontin] 800 mg PO BID 05/01/19 07/12/19 History lisinopril 40 mg PO QAM 05/01/19 07/12/19 History metformin 1,000 mg PO BID 05/01/19 07/12/19 History hydrocodone-acetaminophen 1 tab PO QID PRN 05/30/19 07/12/19 History collagenase clostridium histo. 250 unit TOPICAL DAILY 07/12/19 07/12/19 History [Santyl] varenicline [Chantix Continuing 1 mg PO DAILY 07/12/19 07/12/19 History Month Box] Allergies Allergy/AdvReac Type Severity Reaction Status Date / Time Penicillins Allergy Severe THROAT Verified 07/12/19 14:30 SWEMARIELLES AND HIVSEKOU Past Med/Surg History Medical History Diverticulitis (Resolved) Arthritis Chronic back pain Chronic obstructive pulmonary disease Diabetes mellitus, type 2 Diabetic neuropathy, type II diabetes mellitus Hypertension SOB (shortness of breath) on exertion Sleep apnea CPAP HS 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 PER PT History of bowel resection WITH COLOSTOMY/REVERSAL LATER History of right hip replacement S/P femoral-popliteal bypass surgery X 2-LEFT LEG Family History Mother Family history of diabetes mellitus Uncle Family history of diabetes mellitus Social History Preferred Language: Welsh Communication Ability: Effective Licensed Club Manager Required: No Beliefs That Will Affect Care: None Current Living Situation: Spouse Current Living Situation Comment: only Other Information That Helps Us Care for You: No Feels Safe at Home: Yes Safety Concerns: Feels Safe At This Time Smoking Status: Former smoker Tobacco Type: smokeless tobacco ; Cigarettes Per Day: 16 ; Do You Dip or Chew Tobacco: Yes ; Second Hand Exposure: No ; Tobacco Cessation Education Requested by Patient: No Hx Alcohol Use: No Hx Substance Use: Yes substance use type: marijuana Last Used Substance: Unknown Review of Systems See HPI for pertinent positives & negatives. and A total of 10 systems reviewed and were otherwise negative Physical Exam Vital Signs Vital Signs - 24 hr 07/12/19 13:59 07/12/19 15:15 Temperature 36.5 C Temperature Source Oral Sepsis Recent Fever Within 48 Hours No Sepsis New/Unexplained Change in Mental Status No Sepsis Action Taken by Nursing No Action Required Pulse Rate 111 H 102 H Pulse Rate [Apical] 102 H Respiratory Rate 20 20 Respiratory Effort / Characteristics Non-Labored Spontaneous Respiratory Depth Normal Respiratory Pattern Regular Blood Pressure 93/64 L Blood Pressure [Left Arm] 97/66 L Blood Pressure Mean 73 Blood Pressure Mean [Left Arm] 76 Blood Pressure Position [Left Arm] Lying Pulse Oximetry 96 96 Oxygen Delivery Method Room Air Room Air GENERAL: Patient is in no acute distress. HEENT: No acute trauma, normocephalic atraumatic, mucous membranes moist, no nasal congestion, no scleral icterus. NECK: No stridor, no adenopathy, no meningismus, trachea is midline. LUNGS: Clear to auscultation bilaterally, no wheeze, no rhonchi, breath sounds equal. HEART: Without murmurs gallops or rubs, regular rate and rhythm. ABDOMEN: Soft, nontender, bowel sounds positive, no hernias, no peritonitis. GROIN: blood soaked bandage in left groin with oozing of venous appearing blood from the wound. No surrounding erythema. Some fullness to surgical site when compared to the opposite side. EXTREMITIES: No cyanosis or edema, full range of motion of all the joints without pain or difficulty, no signs for acute trauma. NEUROLOGIC: Oriented x 3, no acute motor or sensory deficits, no focal weakness. SKIN: No rash, no jaundice, no diaphoresis. Course 1456: The patient was evaluated in room B11B, and a complete history and physical examination were performed. 1505: I discussed the patients case with Dr. Alanis vascular surgeon. He reports that he will come evaluate the patient at bedside and advised to order a CTA of LLE in the meantime. 1540: Dr. Alanis reports that he will evaluate the patient for further management. Consultations Consultation #1: Dr. Alanis reports that he will evaluate the patient for further management. Time: 15:40 Administered Medications Hydrocodone Bitart/Acetaminophen ([place] 10/325) 1 tab PO QID PRN PRN Reason: Pain Stop: 07/26/19 15:38 Last Admin: 07/12/19 21:51 Dose: 1 tab Documented by: [id number] Albuterol (Combivent Respimat) 2 puffs INH QID RAFA Stop: 08/11/19 20:59 Last Admin: 07/12/19 21:47 Dose: 2 puffs Documented by: [id number] Gabapentin (Neurontin) 800 mg PO BID RAFA Stop: 08/11/19 20:59 Last Admin: 07/12/19 21:45 Dose: 800 mg Documented by: [id number] Sodium Chloride (1/2 Nss) 1,000 mls @ 50 mls/hr IV .Q20H RAFA Stop: 08/11/19 18:59 Last Admin: 07/12/19 20:16 Dose: 50 mls/hr Documented by: [id number] Insulin Glargine (Lantus Solostar Pen) 15 units SC QPM RAFA Stop: 08/11/19 20:59 Last Admin: 07/12/19 21:46 Dose: 15 units Documented by: [id number] Cosigned by: [id number] Ioversol (Optiray 320 125ml) 117 ml IV ONCE PRN PRN Reason: Interaction Checking Stop: 07/16/19 15:45 Last Admin: 07/12/19 15:47 Dose: 117 ml Documented by: [id number] Discontinued Medications Sodium Chloride (Nss 1000ml) 1,000 mls @ 999 mls/hr IV .Q1H1M ONE Stop: 07/12/19 15:59 Last Admin: 07/12/19 15:46 Dose: 999 mls/hr Documented by: [id number] Medical Decision Making Differential Diagnosis Differentials include anemia, coagulopathy, dehydration, electrolyte imbalance, post-operative bleeding, hematoma, graft/bypass leak amongst others. Medical Records Attestation: I reviewed the patient's medical records. Home Medications Current Medication List: was personally reviewed by me Laboratory Data Attestation: I reviewed the patient's lab results. Result diagrams: 07/12/19 15:10 07/12/19 15:10 Lab Results 07/12/19 07/12/19 07/12/19 Range/Units 15:10 15:10 15:10 WBC 10.14 (4.8-10.8) K/uL RBC 4.36 L (4.7-6.1) M/uL Hgb 14.3 (14.0-18.0) g/dL Hct 42.4 (42-52) % MCV 97.2 (80-100) fL MCH 32.8 (25-34) pg MCHC 33.7 (32-36) g/dL RDW Std Deviation 51.7 H (36.4-46.3) fL RDW Coeff of Maira 14.4 (11.5-14.5) % Plt Count 251 (130-400) K/uL MPV 9.1 (7.4-10.4) fL Immature Gran % (Auto) 0.4 % Neut % (Auto) 75.3 % Lymph % (Auto) 16.4 % [place] % (Auto) 7.3 % Eos % (Auto) 0.2 % Baso % (Auto) 0.4 % Immature Gran # (Auto) 0.04 H (0.00-0.02) K/uL Neut # (Auto) 7.64 H (1.4-6.5) K/uL Lymph # (Auto) 1.66 (1.2-3.4) K/uL [place] # (Auto) 0.74 H (0.11-0.59) K/uL Eos # (Auto) 0.02 (0-0.5) K/uL Baso # (Auto) 0.04 (0-0.2) K/uL PT 11.0 (9.0-12.0) Seconds INR 1.1 (0.9-1.1) Sodium 134 L (136-145) mmol/L Potassium 4.2 (3.5-5.1) mmol/L Chloride 101 (98-107) mmol/L Carbon Dioxide 25 (21-32) mmol/L Anion Gap 8.0 (3-11) BUN 14 (7-18) mg/dl Creatinine 0.86 (0.6-1.4) mg/dl Est Cr Clr Drug Dosing 122.3 ml/min Est GFR ( Amer) 110.8 Est GFR (Non-Af Amer) 95.6 BUN/Creatinine Ratio 16.7 (10-20) Glucose 208 H (70-99) mg/dl Calcium 8.7 (8.5-10.1) mg/dl Magnesium 2.3 (1.8-2.4) mg/dl Total Bilirubin 0.7 (0.2-1) mg/dl AST 12 L (15-37) U/L ALT 9 L (12-78) U/L Alkaline Phosphatase 60 (45-117) U/L Troponin I < 0.015 (0-0.045) ng/ml Total Protein 7.1 (6.4-8.2) gm/dl Albumin 2.8 L (3.4-5.0) gm/dl Globulin 4.3 H (2.5-4.0) gm/dl Albumin/Globulin Ratio 0.6 L (0.9-2) TSH 1.010 (0.300-4.500) uIu/ml Blood Type Antibody Screen 07/12/19 Range/Units 15:31 WBC (4.8-10.8) K/uL RBC (4.7-6.1) M/uL Hgb (14.0-18.0) g/dL Hct (42-52) % MCV (80-100) fL MCH (25-34) pg MCHC (32-36) g/dL RDW Std Deviation (36.4-46.3) fL RDW Coeff of Maira (11.5-14.5) % Plt Count (130-400) K/uL MPV (7.4-10.4) fL Immature Gran % (Auto) % Neut % (Auto) % Lymph % (Auto) % [place] % (Auto) % Eos % (Auto) % Baso % (Auto) % Immature Gran # (Auto) (0.00-0.02) K/uL Neut # (Auto) (1.4-6.5) K/uL Lymph # (Auto) (1.2-3.4) K/uL [place] # (Auto) (0.11-0.59) K/uL Eos # (Auto) (0-0.5) K/uL Baso # (Auto) (0-0.2) K/uL PT (9.0-12.0) Seconds INR (0.9-1.1) Sodium (136-145) mmol/L Potassium (3.5-5.1) mmol/L Chloride (98-107) mmol/L Carbon Dioxide (21-32) mmol/L Anion Gap (3-11) BUN (7-18) mg/dl Creatinine (0.6-1.4) mg/dl Est Cr Clr Drug Dosing ml/min Est GFR ( Amer) Est GFR (Non-Af Amer) BUN/Creatinine Ratio (10-20) Glucose (70-99) mg/dl Calcium (8.5-10.1) mg/dl Magnesium (1.8-2.4) mg/dl Total Bilirubin (0.2-1) mg/dl AST (15-37) U/L ALT (12-78) U/L Alkaline Phosphatase (45-117) U/L Troponin I (0-0.045) ng/ml Total Protein (6.4-8.2) gm/dl Albumin (3.4-5.0) gm/dl Globulin (2.5-4.0) gm/dl Albumin/Globulin Ratio (0.9-2) TSH (0.300-4.500) uIu/ml Blood Type O Positive Antibody Screen NEGATIVE Imaging Data Radiologist's Impression: Radiology results as stated below per my review and the radiologist's interpretation: CT ANGIOGRAPHY OF THE LEFT LOWER EXTREMITY CLINICAL HISTORY: bypass graft in groin, bleeding--with only COMPARISON STUDY: CTA, including runoff April 21, 2019. TECHNIQUE: Axial images from the aortic bifurcation through the left foot were obtained following intravenous injection of 117 cc Optiray 320 IV. Sagittal and coronal reconstructed reviewed as well as maximal intensity projections on an independent 3-D workstation. Automated exposure control was utilized for the study. A dose lowering technique was utilized adhering to the principles of ALARA. FINDINGS: The bladder is distended. Right hip arthroplasty is noted. Caliber and wall thickness of visualized small and large bowel are normal. Left common iliac artery stent is patent. There is severe stenosis of the left external iliac artery as well as the left common femoral artery which is unchanged. There is severe stenosis at the origin of the left profunda. Left SFA stent is occluded as before. A left axillary bifemoral bypass graft is partially imaged. As before, the viejas right superficial femoral artery is occluded. The right profunda is patent. Visualized portions are patent. Interval left profunda bypass is noted. Gas within the left groin is noted. There are multiple fluid collections which measure up to 4.1 cm. These favor hematomas. No pseudoaneurysm is identified. There is moderate narrowing of the left profunda graft and equivocal minimal thrombus within the distal aspect of the graft. Reconstitution at the level of the left popliteal artery is again noted. Severe stenosis of the left popliteal artery is noted. There is stenosis at the origin of the left p osterior tibial artery which is otherwise patent. This is patent the level of the left foot. Severe stenoses within the left anterior tibial artery are noted with several sites of suspected occlusion and reconstitution. Severe stenosis at origin of the left peroneal artery is noted. IMPRESSION: 1. Status post interval left groin profunda bypass. Graft narrowed but patent. Apparent small filling defect within the distal aspect of the bypass graft. Artifact is favored however a small intraluminal thrombus could appear similar. No pseudoaneurysm. Several left groin fluid collections which favor hematomas. Moderate gas within the left groin may be due to the open wound. A superimposed infection is considered less likely but could appear similar. 2. Visualized portions of left axillobifemoral bypass graft patent. Redemonstration of stenosis at origin of the left profunda. Occluded left SFA stent with reconstitution at the level of the left popliteal artery with stenoses within the left popliteal artery and left calf vessels with left foot largely supplied through the posterior tibial artery. Electronically signed by: Florian Main M.D. 07/12/2019 4:31 PM XR chest 1V portable CLINICAL HISTORY: weakness COMPARISON STUDY: Chest radiograph June 06, 2019. FINDINGS: Lung volumes are normal. Lungs are clear. There is no pneumothorax or pleural effusion. Cardiac size is normal. Mediastinal contours are normal. There is no evidence for pulmonary edema. Surgical clips project over the left axilla. IMPRESSION: No acute cardiopulmonary findings. Electronically signed by: Florian Main M.D. 07/12/2019 3:23 PM ECG Data Attestation: I personally reviewed and interpreted this ECG as follows: Indication: other (Weakness) Rate (beats per minute): 96 Rhythm: normal sinus Findings: + other (Old septal infarct. QTC 447.) and + ST elevation (in inferior leads) Comparison ECG Date: from (06/06/19) Change: the following changes noted (ST change in inferior leads is more pro minent today than noted before.) Blood Pressure Blood Pressure Findings: Low blood pressure Blood Pressure Disposition: further management by hospitalist NAVID Pearl There is no leukocytosis or concerning anemia. No significant electrolyte abnormality or kidney failure. INR is normal. No worrisome liver enzyme elevation. Patient appears to be in a euthyroid state. Chest film does not show pneumonia or CHF. EKG shows a sinus rhythm with some subtle ST elevation in the inferior leads however, these have been noted before and the patient is not having chest pain. Cardiac enzyme testing x1 is not consistent with acute cardiac injury. Left lower extremity CT angiogram demonstrates a patent graft with some hematoma. The patient is having persistent bleeding from his left groin surgical site. He is now weak and lightheaded and short of breath. He did present somewhat hypo tensive and somewhat tachycardic. The patient received IV saline, he was given 1 L. I spoke with the vascular surgeon entertainment & media correspondent. The patient was seen here by vascular. Patient will be hospitalized for the persistent bleeding and will likely undergo surgical intervention. The patient is aware of the findings, the rehabilitation case coordinator has been involved. Hospitalization is warranted. Impression & Plan Weakness, Acute hypotension, Tachycardia, Postoperative hemorrhage from incision Discharge Plan Visit Data *Final* Discharge Date/Time: 07/12/19 18:15 Chief Complaint: Bleeding Stated Complaint: BLEEDING AT SURGICAL INCISION ED Provider: Calderon Pate Discharge Problem: Weakness, Acute hypotension, Tachycardia, Postoperative hemorrhage from incision Patient Disposition: Admitted As Inpatient Discharge Instructions Interventions: ED Discharge Assessment Last Done: 07/12/19 18:15 The scribe's documentation has been prepared under my direction and personally reviewed by me in its entirety. I confirm that the note above accurately reflects all work, treatment, procedures, and medical decision making performed by me.
[2019-07-12] MEDS: SODIUM CHLORIDE 0.45 % 1,000 ML IV SCH (20:16)
[2019-07-12] MEDS: GABAPENTIN 800 MG TAB PO SCH (21:45)
[2019-07-12] MEDS: INSULIN GLARGINE SOLOSTAR 100 UNITS/ML 3 ML PEN SC SCH (21:46)
[2019-07-12] MEDS: IPRATROPIUM BROMIDE/ALBUTEROL respimat INH INH SCH (21:47)
[2019-07-12] MEDS: HYDROCODONE/ACETAMINOPHEN 10/325 TAB PO PRN (21:51)
[2019-07-13] MEDS: HYDROCODONE/ACETAMINOPHEN 10/325 TAB PO PRN ×3 (03:57→19:57)
[2019-07-13 07:37] LABS: BUN Creatinine Ratio 17.6 (10-20); Calcium 8.6 mg/dl (8.5-10.1); Creatinine Clr Calc Pharmacy 175.3 ml/min; Est GFR (African American) 128.5; Est GFR (Non-African American) 110.8; Potassium 4.1 mmol/L (3.5-5.1)
[2019-07-13] MEDS: IPRATROPIUM BROMIDE/ALBUTEROL respimat INH INH SCH ×4 (08:15→20:38)
[2019-07-13] MEDS: GABAPENTIN 800 MG TAB PO SCH ×2 (08:16→20:38)
[2019-07-13] MEDS: lisinopriL 40 MG TAB PO SCH (08:16)
[2019-07-13] MEDS: ASPIRIN 325 MG ECTAB PO SCH (08:16)
[2019-07-13] MEDS: SODIUM CHLORIDE 0.45 % 1,000 ML IV SCH (13:40)
--- NOTE | 2019-07-13 15:37 | History & Physical Report ---
Date of Service July 12, 2019 Assessment & Plan (1) Postoperative hemorrhage from incision: Patient had a CTA showed no active bleeding. Will admit today and plan exploration of wound on Wednesday. History of Present Illness Chief Complaint: Bleeding left groin Primary Care Provider: Luis Lemon Patient is a 59 yo who recently underwent a left femoral to profunda bypass. He has had an ax bifem in the past. He came to the ED with bleeding from the left groin and pain. Claims it was dark to light colored blood. No pus was noted. He does feel tired and light headed. Allergies Allergy/AdvReac Type Severity Reaction Status Date / Time Penicillins Allergy Severe THROAT Verified 07/12/19 14:30 SWELLS AND HIVES Home Medications Home Medications Medication Instructions Recorded Confirmed Type Combivent Respimat 2 puff INHALATION QID 05/01/19 07/12/19 History Jardiance 10 mg PO QAM 05/01/19 07/12/19 History Toujeo SoloStar U-300 Insulin 15 unit SUBCUT QPM 05/01/19 07/12/19 History Trulicity 0.75 mg SUBCUT WK 05/01/19 07/12/19 History albuterol sulfate 2 puff INHALATION QID PRN 05/01/19 07/12/19 History aspirin 325 mg PO QAM 05/01/19 07/12/19 History cilostazol 100 mg PO BID 05/01/19 07/12/19 History gabapentin [Neurontin] 800 mg PO BID 05/01/19 07/12/19 History lisinopril 40 mg PO QAM 05/01/19 07/12/19 History metformin 1,000 mg PO BID 05/01/19 07/12/19 History hydrocodone-acetaminophen 1 tab PO QID PRN 05/30/19 07/12/19 History collagenase clostridium histo. 250 unit TOPICAL DAILY 07/12/19 07/12/19 History [Santyl] varenicline [Chantix Continuing 1 mg PO DAILY 07/12/19 07/12/19 History Month Box] Past Med/Surg History Medical History Diverticulitis (Resolved) Arthritis Chronic back pain Chronic obstructive pulmonary disease Diabetes mellitus, type 2 Diabetic neuropathy, type II diabetes mellitus Hypertension SOB (shortness of breath) on exertion Sleep apnea CPAP HS 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 PER PT History of bowel resection WITH COLOSTOMY/REVERSAL LATER History of right hip replacement S/P femoral-popliteal bypass surgery X 2-LEFT LEG Family History Mother Family history of diabetes mellitus Uncle Family history of diabetes mellitus Social History Preferred Language: [place]ican Communication Ability: Effective Clinical Trials Assistant Required: No Beliefs That Will Affect Care: None Current Living Situation: Spouse Current Living Situation Comment: only Other Information That Helps Us Care for You: No Feels Safe at Home: Yes Safety Concerns: Feels Safe At This Time Smoking Status: Former smoker Tobacco Type: smokeless tobacco ; Cigarettes Per Day: 16 ; Do You Dip or Chew Tobacco: Yes ; Second Hand Exposure: No ; Tobacco Cessation Education Requested by Patient: No Hx Alcohol Use: No Hx Substance Use: Yes substance use type: marijuana Last Used Substance: Unknown Review of Systems All systems reviewed & are unremarkable except as noted in HPI & below Physical Exam Constitutional: WD/WN, vitals as above Neck: trachea midline Respiratory: normal respiratory effort, lungs clear to auscultation Cardiovascular: Rate/Rhythm: regular rate and regular rhythm Gastrointestinal (Abdomen): Inspection/Auscultation: abdomen normal to inspection; abdomen not distended Percussion/Palpation: abdomen soft Skin: + incision (open area mid portion of left groin wound. no bleeding seen at this time ) dressing did have old dark blood on it. Neurologic: CN's II-XI intact bilaterally Motor/Sensory: normal movement and no sensory deficit Psychiatric: Orientation: alert and oriented x 3 Results & Data Vital Signs (Past 12 Hours) Vital Signs Temp Pulse Resp BP BP Pulse Ox 07/13/19 15:27 36.7 C 89 18 131/78 95 07/13/19 12:09 36.4 C L 88 18 127/74 92 07/13/19 08:00 36.4 C L 85 18 109/71 94 07/13/19 03:51 36.5 C 85 19 117/69 92 Code Status & VTE Plan VTE Prophylaxis Plan VTE Prophylaxis will be ordered: No
--- NOTE | 2019-07-13 15:43 | Communication Note ---
Date of Service: July 13, 2019 Patient for left groin exploration tomorrow. I have discussed the risks options and benefits of the procedure with the patient. The patient understands the risks options and benefits and agrees to the procedure.
--- NOTE | 2019-07-13 18:15 | Anesthesiology Consultation ---
Date of Service July 13, 2019 Assessment & Plan Chart Review Chart Review: Acceptable Risk for Surgery and Patient NOT seen in Pre Admission Testing Consults Requested none ASA ASA4 Proposed Anesthesia Anesthesia Type: General Anesthesia Line Insertion: Arterial line History Surgery Operation Date: 07/14/19 11:30 Proposed Procedures p Left Groin Exploratory - Denis Alanis MD Height/Weight Height: 5 ft 11 in Weight: 117.934 kg Allergies Allergy/AdvReac Type Severity Reaction Status Date / Time Penicillins Allergy Severe THROAT Verified 07/12/19 14:30 SWELLS AND HIVES Medications Home Medications Medication Instructions Recorded Confirmed Last Taken Combivent Respimat 2 puff INHALATION QID 05/01/19 07/12/19 06/13/19 20:00 Jardiance 10 mg PO QAM 05/01/19 07/12/19 07/12/19 [place] SoloStar U-300 Insulin 15 unit SUBCUT QPM 05/01/19 07/12/19 07/11/19 Trulicity 0.75 mg SUBCUT WK 05/01/19 07/12/19 07/08/19 albuterol sulfate 2 puff INHALATION QID PRN 05/01/19 07/12/19 06/14/19 04:00 aspirin 325 mg PO QAM 05/01/19 07/12/19 07/12/19 cilostazol 100 mg PO BID 05/01/19 07/12/19 06/13/19 03:30 gabapentin [Neurontin] 800 mg PO BID 05/01/19 07/12/19 07/12/19 lisinopril 40 mg PO QAM 05/01/19 07/12/19 07/12/19 metformin 1,000 mg PO BID 05/01/19 07/12/19 07/12/19 hydrocodone-acetaminophen 1 tab PO QID PRN 05/30/19 07/12/19 07/12/19 collagenase clostridium histo. 250 unit TOPICAL DAILY 07/12/19 07/12/19 Unknown [Santyl] varenicline [Chantix Continuing 1 mg PO DAILY 07/12/19 07/12/19 Unknown Month Box] Active Medications Generic Name Dose Route Start Last Admin Trade Name Freq PRN Reason Stop Dose Admin Hydrocodone Bitart/Acetaminophen 1 tab 07/12/19 15:39 07/13/19 13:41 Lydia 10/325 PO 07/26/19 15:38 1 tab QID PRN Administration Pain Albuterol 2 puffs 07/12/19 21:00 07/13/19 16:49 Combivent Respimat INH 08/11/19 20:59 2 puffs QID RAFA Administration Aspirin 325 mg 07/13/19 09:00 07/13/19 08:16 Ecotrin PO 08/12/19 08:59 325 mg QAM RAFA Administration Gabapentin 800 mg 07/12/19 21:00 07/13/19 08:16 Neurontin PO 08/11/19 20:59 800 mg BID RAFA Administration Sodium Chloride 1,000 mls @ 50 mls/hr 07/12/19 19:00 07/13/19 13:40 1/2 Nss IV 08/11/19 18:59 50 mls/hr .Q20H RAFA Administration Insulin Glargine 15 units 07/12/19 21:00 07/12/19 21:46 Lantus Solostar Pen SC 08/11/19 20:59 15 units QPM RAFA Administration Ioversol 117 ml 07/12/19 15:46 07/12/19 15:47 Optiray 320 125ml IV 07/16/19 15:45 117 ml ONCE PRN Administration Interaction Checking Lisinopril 40 mg 07/13/19 09:00 07/13/19 08:16 Zestril PO 08/12/19 08:59 40 mg QAM RAFA Administration Miscellaneous 1 ea 07/13/19 00:00 07/13/19 16:48 Order Awaiting Action N/A 08/12/19 00:00 Not Given QS RAFA Miscellaneous 1 ea 07/13/19 00:00 07/13/19 16:48 Order Awaiting Action N/A 08/12/19 00:00 Not Given QS RAFA Miscellaneous 1 ea 07/13/19 00:00 07/13/19 16:48 Order Awaiting Action N/A 08/12/19 00:00 Not Given QS RAFA Past Medical History Medical History Diverticulitis (Resolved) Arthritis Chronic back pain Chronic obstructive pulmonary disease Diabetes mellitus, type 2 Diabetic neuropathy, type II diabetes mellitus Hypertension SOB (shortness of breath) on exertion Sleep apnea CPAP HS 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 PER PT History of bowel resection WITH COLOSTOMY/REVERSAL LATER History of right hip replacement S/P femoral-popliteal bypass surgery X 2-LEFT LEG Past Anesthesia History No Hx of Anesthesia Complications and No Family Hx of Anesthesia Complications History of PONV No Hx of PONV and No Hx of Motion Sickness Social History Smoking Status: Former smoker tobacco type: smokeless tobacco Smoking cigarettes per day: 16 Do You Dip or Chew Tobacco: Yes Hx Alcohol Use: No Hx Substance Use: Yes substance use type: marijuana Last Used Substance: Unknown Physical Exam Vital Signs Last Vital Signs Temp 36.7 C 07/13/19 15:27 Pulse 89 07/13/19 15:27 Resp 18 07/13/19 15:27 BP 131/78 07/13/19 15:27 Pulse Ox 95 07/13/19 15:27 Testing Laboratory Results 07/13/19 06:47 07/13/19 06:47 PT 11.0 Seconds (9.0-12.0) 07/12/19 15:10 INR 1.1 (0.9-1.1) 07/12/19 15:10 Blood Type O Positive 07/12/19 15:31 Antibody Screen NEGATIVE 07/12/19 15:31 07/13/19 07/13/19 07/13/19 16:10 11:20 07:22 POC Glucose 148 H 163 H 109 H 07/13/19 07:19 POC Glucose 243 H Electrocardiogram Date: 07/12/19 Findings: + NSR @ (at 96;RAD;septal infarct;ST elevation injury pattern) Chest X-Ray Date: 07/12/19 Findings: + NAD
[2019-07-13] MEDS: INSULIN GLARGINE SOLOSTAR 100 UNITS/ML 3 ML PEN SC SCH (20:39)
[2019-07-14] MEDS ORDERED: CLINDAMYCIN 600 MG/54 ML BAG IV SCH (06:00)
[2019-07-14] MEDS ORDERED: CLINDAMYCIN 600 MG in DEXTROSE 5% 50 ML IV ONE (06:39)
[2019-07-14 07:02] LABS: BUN Creatinine Ratio 17.4 (10-20); Calcium 8.5 mg/dl (8.5-10.1); Creatinine Clr Calc Pharmacy 164.3 ml/min; Est GFR (African American) 125.1; Est GFR (Non-African American) 107.9; Potassium 3.8 mmol/L (3.5-5.1)
--- NOTE | 2019-07-14 09:33 | History & Physical Bridge Note ---
Date of Service July 14, 2019 History & Physical Bridge Note This patient is to have a left groin exploration later today. I have discussed the risks options and benefits of the procedure with the patient. The patient understands the risks options and benefits and agrees to the procedure. I have examined the patient, reviewed the History & Physical and in the interval since the performance of the History & Physical I have noted the following changes of clinical significance: no changes noted
[2019-07-14] MEDS: IPRATROPIUM BROMIDE/ALBUTEROL respimat INH INH SCH ×4 (09:42→21:10)
[2019-07-14] MEDS: lisinopriL 40 MG TAB PO SCH (09:43)
[2019-07-14] MEDS: GABAPENTIN 800 MG TAB PO SCH ×2 (09:43→21:10)
[2019-07-14] MEDS: HYDROCODONE/ACETAMINOPHEN 10/325 TAB PO PRN ×2 (09:45→19:12)
[2019-07-14] MEDS: SODIUM CHLORIDE 0.45 % 1,000 ML IV SCH (09:51)
[2019-07-14] MEDS ORDERED: PROPOFOL IV EMULSION 10 MG/ML 20 ML VIAL IV ONE (12:29)
[2019-07-14] MEDS ORDERED: DEXAMETHASONE SOD INJ 4 MG/ML VIAL ONE (12:29)
[2019-07-14] MEDS ORDERED: ONDANSETRON INJ 2 MG/ML 2 ML VIAL ONE (12:29)
[2019-07-14] MEDS ORDERED: fentaNYL citrate 100 MCG/2 ML VIAL ONE ×4 (12:29→14:03)
[2019-07-14] MEDS ORDERED: MIDAZOLAM HCL 1 MG/ML 2ML VIAL ONE (12:29)
[2019-07-14] MEDS ORDERED: LIDOCAINE HCL 2% 2 ML VIAL/AMP(20MG/ML) INFIL ONE (12:29)
[2019-07-14] MEDS: ASPIRIN 325 MG ECTAB PO SCH (12:38)
[2019-07-14] MEDS ORDERED: ePHEDrine sulfate 50 MG/ML AMP IV PRN (12:44)
[2019-07-14] MEDS ORDERED: MEPERIDINE HCL 25 MG/ML CARP IV PRN (12:44)
[2019-07-14] MEDS ORDERED: LABETALOL HCL IV 5 MG/ML 20ML IV PRN (12:44)
[2019-07-14] MEDS ORDERED: fentaNYL citrate 100 MCG/2 ML VIAL IV PRN (12:44)
[2019-07-14] MEDS ORDERED: HYDROmorphone INJ 1 MG/ML SYRINGE IV PRN (12:44)
[2019-07-14] MEDS ORDERED: PHENYLEPHRINE 100MCG/ML 5ML SYR IV PRN (12:44)
[2019-07-14] MEDS ORDERED: ONDANSETRON INJ 2 MG/ML 2 ML VIAL IV PRN (12:44)
[2019-07-14] MEDS ORDERED: ATROPINE SULFATE 0.1 MG/ML 10ML SYR IV PRN (12:44)
[2019-07-14] MEDS ORDERED: THROMBIN 5000 UNITS KIT ONE (13:00)
[2019-07-14] MEDS ORDERED: GELATIN SPONGE SZ 100 ONE (13:00)
[2019-07-14] MEDS ORDERED: HEPARIN (PORCINE) 1000 UNIT/ML 10 ML (CATH LAB USE ONLY) ONE (13:33)
[2019-07-14] MEDS ORDERED: HEPARIN SOD (PORCINE) 1000 UNIT/ML 10 ML VIAL ONE (13:33)
[2019-07-14] MEDS ORDERED: ROCURONIUM BROMIDE 10 MG/ML 5 ML VIAL ONE (13:33)
[2019-07-14] MEDS ORDERED: SUCCINYLCHOLINE CHLORIDE 20 MG/ML 10 ML VIAL ONE (13:33)
[2019-07-14] MEDS ORDERED: THROMBIN FOR SOLN 20000 UNIT KIT ONE (13:53)
[2019-07-14] MEDS ORDERED: BACITRACIN INJ 50,000 UNIT VIAL ONE (14:01)
[2019-07-14] MEDS ORDERED: PHENYLEPHRINE 100MCG/ML 5ML SYR ONE (14:03)
[2019-07-14] MEDS ORDERED: ESMOLOL HCL INJ 10 MG/ML 10ML VIAL IV ONE (14:03)
[2019-07-14] MEDS ORDERED: PROTAMINE SULFATE 10 MG/ML 5 ML VIAL ONE (14:03)
--- NOTE | 2019-07-14 14:39 | Operative Report ---
Post Operative Report Pre & Post Diagnosis Operation Date: 07/14/19 11:30 Pre-Op Diagnosis: LEFT GROIN BLEEDING Post-Op Diagnosis: LEFT GROIN BLEEDING Procedure Operation Date: 07/14/19 11:30 Exploration left groin, revision of proximal arterial anastomosis. Surgeon Denis Alanis MD Ict Development Manager None Estimated Blood Loss 200 Findings Consistent with Post-Op Diagnosis Specimens None Anesthesia Type General Complications none Disposition Accompanied Patient To Recovery: No Disposition: Recovery Room Indications This patient is a 59-year-old gentleman who had a left groin bypass from his left limb of his axillobifemoral bypass to his profundofemoral artery. He presented with intermittent bleeding from the left groin. He had no fever no chills prior to this. Exploration of the groin was recommended. He had a CTA which did not show any extravasation. I have discussed the risks options and benefits of the procedure with the patient. The patient understands the risks options and benefits and agrees to the procedure. Description of Procedure Patient was taken to the operating placed in the supine position. The groin was then prepped and draped in a sterile manner. Patient was identified and a timeout was performed. An incision was made in the line of the old incision encompassing the small punctate opening which had a small hematoma present. This was carried down to the proximal anastomosis was seen. All clot was seen in the area. This was evacuated. We did see bleeding coming from the anastomosis between 2 sutures. It appeared to be an area where ring of the pr evious graft was causing a gap between the sutures. This area was exposed and the grafts were then clamped proximally distally. It was decided to unroofed the graft from the old bypass. This was done being that the profunda bypass was slightly redundant. There was a small amount of clot present in the profunda graft which was removed. Good backbleeding was seen. We then trimmed and beveled the graft. An end-to-side anastomosis was accomplished between the profunda graft to the old axillofemoral graft. This was done with a 5-0 Prolene suture. After this was completed clamps removed good flow was appreciated. No bleeding was noted from the suture line. Cultures were sent of this area. Wound was inspected no further bleeding was noted. Wound was irrigated with bacitracin solution. Wound was then closed with a running 2-0 Vicryl suture for the deeper layers and interrupted nylon for the skin edges. Sterile dressings were applied to the wound.The patient left the operation room in satisfactory condition and tolerated the procedure well. All needle and sponge counts were correct at the end of the procedure. I attest to the content of the Intraoperative Record and any orders documented therein. Any exceptions are noted below.
[2019-07-14] MEDS ORDERED: ALBUT/IPRATROP 3MG/0.5MG NEB 3 ML VIAL NEB STA (14:42)
[2019-07-14] MEDS ORDERED: METOPROLOL TARTRATE 1 MG/ML VIAL IV ONE ×3 (14:45→15:00)
[2019-07-14] MEDS ORDERED: ACETAMINOPHEN 1000 MG/100 ML IV IV ONE (14:46)
[2019-07-14] MEDS ORDERED: ACETAMINOPHEN 1,000 MG/100 ML VIAL IV STA (14:49)
[2019-07-14] MEDS ORDERED: METOPROLOL TARTRATE 1 MG/ML VIAL IV STA ×2 (14:56)
--- NOTE | 2019-07-14 15:17 | Anesthesiology Progress Note ---
Date of Service July 14, 2019 Anesthesia Post Procedure Vital Signs Vital Signs: Temp Pulse Pulse Resp BP BP BP 07/14/19 15:01 133 H 28 H 07/14/19 14:52 151 H 141/114 H 07/14/19 14:51 130 H 147/105 H 07/14/19 12:33 36.6 C 93 H 20 122/65 07/14/19 11:16 36.4 C L 95 H 18 121/76 07/14/19 07:43 36.5 C 92 H 19 143/80 H 07/14/19 03:55 36.6 C 89 17 106/63 07/14/19 00:26 36.9 C 79 19 132/79 07/14/19 00:15 80 07/13/19 19:31 36.5 C 83 22 116/72 07/13/19 15:27 36.7 C 89 18 131/78 Pulse Ox 07/14/19 15:01 99 07/14/19 14:52 07/14/19 14:51 07/14/19 12:33 94 07/14/19 11:16 93 07/14/19 07:43 93 07/14/19 03:55 90 07/14/19 00:26 92 07/14/19 00:15 07/13/19 19:31 94 07/13/19 15:27 95 Pain Intensity Left Groin: Pain Intensity: 5 Transfer of Care Handoff Completed per policy Notes Mental Status: alert / awake / arousable Patient Amnestic to Procedure: Yes Nausea / Vomiting: adequately controlled Pain: adequately controlled Airway Patency, RR, SpO2: stable & adequate BP & HR: see Notes below Hydration State: stable & adequate Anesthetic Complications: no major complications apparent, see Notes below and Pt Satisfied with anesthetic care Notes: The patient tolerated the procedure. Upon extubation the patient became tachycardic. On arrival to PACU his HR was in the 150s with SBP in the 170s. The patient also had audible wheezing with RR 20s and SpO2 in the 90s on face mask oxygen. His temperature was 37.9. The patient was given metoprolol 5 mg IV x2. He was given IV acetaminophen and a Duoneb treatment. His HR came down to the 130s then the 110s-120s. SBP came down to 120s then to 100s. A 12 lead EKG was obtained after the metoprolol had been given that showed sinus tachycardia with old infarct. Dr. Alanis was made aware and ordered a transfer to the ICU. Dr. Potter came from the ICU to evaluate the patient and was given sign out. He will follow the patient in the ICU. The patient feels comfortable at the moment. Dr. Hughes was also present and will follow the patient while he is in the PACU.
--- NOTE | 2019-07-14 15:42 | Critical Care Consultation ---
Date of Consultation July 14, 2019 Assessment & Plan (1) Shock circulatory: Distributive shock etiology still unclear Temperature of 38.1 Celsius at the time of examination with heart rate of 122 in a patient with just came out to the OR. Had a discussion with a surgeon which says there was no apparent infection of the site but there was bleeding which was taken care of. Patient has history of anesthetic procedures with no complications, unlikely to be malignant hyperthermia Need to rule out sepsis, questionable aspiration We will give the patient loading dose of vancomycin and aztreonam given the patient is allergic to penicillin Follow-up septic work-up including blood culture, ESR, CRP and procalcitonin Lactic acid and chest x-ray stat Repeat H&H now. Patient also got 10 mg of metoprolol IV push because of tachycardia while in the OR with heart rate going up to 150s. We will give IV fluids if the blood pressure does not respond to fluids will have to put a central line and think about starting the patient on pressors. - PVD s/p fem-pop and Axilo-femoral bypas - COPD with probable Sleep apnea c/w inhaled therapy BiPAP qhs and PRN SOB -- DM-II will put patient on ISS -- HTN -- DVT prophylaxis: IPC's given that the patient was bleeding -- NPO till the patient is more awake History of Present Illness Reason for Consultation: Tachycardia and shock Attending Physician: Denis Alanis MD History of Present Illness 59-year-old with past medical history of diabetes mellitus type 2, COPD, peripheral vascular disease with axillo bifemoral and recent left femoral to profunda bypass was admitted because of bleeding from the left groin and pain. As per the nurse there was no pus noted but the patient did feel tired and lightheaded. ICU was consulted as patient was found to be tachycardic in the OR for which patient got total 10 mg of metoprolol IV push and 1 L of crystalloids. While examining the patient patient's heart rate was 122 systolic blood pressure low 90s. Map 65. Temperature 38.1. Left groin area was bandaged. Along with left ankle. Patient was still under effect of anesthesia. Unable to get any history from the patient. A liter bolus of fluid was ordered for the patient along with blood culture and septic work-up. As per discussion with the surgeon who did perform the surgery there was no gross evidence of any pus at the site of revision. History obtained from previous charts. Allergies Allergy/AdvReac Type Severity Reaction Status Date / Time Penicillins Allergy Severe THROAT Verified 07/12/19 14:30 SWELLS AND HIVES Home Medications Home Medications Medication Instructions Recorded Confirmed Type Combivent Respimat 2 puff INHALATION QID 05/01/19 07/12/19 History Jardiance 10 mg PO QAM 05/01/19 07/12/19 History Toujeo SoloStar U-300 Insulin 15 unit SUBCUT QPM 05/01/19 07/12/19 History Trulicity 0.75 mg SUBCUT WK 05/01/19 07/12/19 History albuterol sulfate 2 puff INHALATION QID PRN 05/01/19 07/12/19 History aspirin 325 mg PO QAM 05/01/19 07/12/19 History cilostazol 100 mg PO BID 05/01/19 07/12/19 History gabapentin [Neurontin] 800 mg PO BID 05/01/19 07/12/19 History lisinopril 40 mg PO QAM 05/01/19 07/12/19 History metformin 1,000 mg PO BID 05/01/19 07/12/19 History hydrocodone-acetaminophen 1 tab PO QID PRN 05/30/19 07/12/19 History collagenase clostridium histo. 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 PER PT History of bowel resection WITH COLOSTOMY/REVERSAL LATER History of right hip replacement S/P femoral-popliteal bypass surgery X 2-LEFT LEG Family History Mother Family history of diabetes mellitus Uncle Family history of diabetes mellitus Social History Preferred Language: French Communication Ability: Effective Armature [employer] Required: No Beliefs That Will Affect Care: None Current Living Situation: Spouse Current Living Situation Comment: only Other Information That Helps Us Care for You: No Feels Safe at Home: Yes Safety Concerns: Feels Safe At This Time Smoking Status: Former smoker Tobacco Type: smokeless tobacco ; Cigarettes Per Day: 16 ; Do You Dip or Chew Tobacco: Yes ; Second Hand Exposure: No ; Tobacco Cessation Education Requested by Patient: No Hx Alcohol Use: No Hx Substance Use: Yes substance use type: marijuana Last Used Substance: Unknown Review of Systems 2 Review of Systems: Unobtainable due to cognitive status and Unobtainable due to reduced consciousness Patient is Post OP still under anesthesia. Physical Exam Physical Exam: Constitutional: Somnolent under the effect of anesthesia HEENT: PERRLA Respiratory system: Poor inspiratory effort, minimal wheeze, no crackles, no rhonchi CVS: S1-S2 positive, no murmurs or gallops, tachycardia Abdomen: Soft, nontender, nondistended, positive bowel sounds x4 Extremities: +2 pulses bilaterally radialis/ dorsalis pedis, left groin and left foot bandaged, left thigh is bigger in size compared to the right(unknown baseline) Neuro: Somnolent but arousable to his name. Answers questions appropriately. Psych: Unable to assess G/U: No Santos Lymphatic: no cervical or axillary lymphadenopathy Results & Data Vital Signs (Past 12 Hours) Vital Signs Temp Pulse Pulse Resp BP BP BP 07/14/19 15:01 133 H 28 H 07/14/19 14:52 151 H 141/114 H 07/14/19 14:51 130 H 147/105 H 07/14/19 14:42 37.9 C H 151 H 33 H 141/114 H 07/14/19 12:33 36.6 C 93 H 20 122/65 07/14/19 11:16 36.4 C L 95 H 18 121/76 07/14/19 07:43 36.5 C 92 H 19 143/80 H 07/14/19 03:55 36.6 C 89 17 106/63 Pulse Ox 07/14/19 15:01 99 07/14/19 14:52 07/14/19 14:51 07/14/19 14:42 90 07/14/19 12:33 94 07/14/19 11:16 93 07/14/19 07:43 93 07/14/19 03:55 90 Laboratory Results 07/14/19 05:57 07/14/19 05:57 Diagnostic Findings -EKG: Sinus rhythm, tachycardia, patient has underlying right axis deviation. No ST-T wave changes appreciated. ? RBBB QTc 443. PG Care Time/CCT Total # of Minutes Spent Total Time Spent with Patient: Total time spent is greater than 50% in coordination of care (as documented) at patient's floor/unit and/or counseling patient: Critical Care Time: Yes Total Critical Care Time: 57
[2019-07-14] MEDS ORDERED: ALBUMIN HUMAN 5% 12.5 GM/250 ML VIAL IV ONE (15:57)
[2019-07-14 16:12] LABS: Basophils # (auto) 0.01 K/uL (0-0.2); Basophils % (auto) 0.1 %; Eosinophils # (auto) 0.01 K/uL (0-0.5); Eosinophils % (auto) 0.1 %; Hematocrit (blood only) 44.2 % (42-52); Immature Granulocytes # (auto) 0.08 K/uL (0.00-0.02); Immature Granulocytes % (auto) 1.1 %; Lymphocytes % (auto) 8.3 %; Mean Corpuscular Volume 97.4 fL (80-100); Mean Platelet Volume 8.7 fL (7.4-10.4); Monocytes # (auto) 0.05 K/uL (0.11-0.59); Monocytes % (auto) 0.7 %; Neutrophils # (auto) 6.47 K/uL (1.4-6.5); Neutrophils % (auto) 89.7 %; Platelet Count 253 K/uL (130-400); RDW Coefficient of Variation 14.1 % (11.5-14.5); RDW Standard Deviation 50.5 fL (36.4-46.3); Red Blood Count 4.54 M/uL (4.7-6.1); White Blood Count 7.22 K/uL (4.8-10.8)
[2019-07-14 16:20] LABS: Mean Corpuscular Hgb Conc 33.9 g/dL (32-36)
[2019-07-14 16:28] LABS: Albumin Level 2.7 gm/dl (3.4-5.0); BUN Creatinine Ratio 14.8 (10-20); C Reactive Protein 3.68 mg/dl (0-0.29); Calcium 8.8 mg/dl (8.5-10.1); Creatinine Clr Calc Pharmacy 128.2 ml/min; Est GFR (African American) 113.5; Potassium 4.4 mmol/L (3.5-5.1)
[2019-07-14 16:42] LABS: Albumin Globulin Ratio 0.7 (0.9-2); Bilirubin,Total 0.6 mg/dl (0.2-1); Globulin 3.8 gm/dl (2.5-4.0); Total Protein 6.5 gm/dl (6.4-8.2)
--- NOTE | 2019-07-14 16:44 | Procedure Note ---
Procedure Note Date of Service July 14, 2019 Radial arterial line placed in PACU at 1610 for posteoperative hypotension after groin washout with Dr. Alanis. Left wrist prepped with chlorhexidine and draped with sterile towels. Site infiltrated with 1 cc of 1% lidocaine. 20 G angiocath placed under sterile technique under ultrasound guidance on the third attempt. Catheter threaded using seldinger technique with return of pulsatile, bright red blood. Site covered with occlusive dressing and taped in place. After placement, fingers of procedural hand had normal perfusion. Patient tolerated procedure well without apparent complications. Rose Hughes MD, PhD Anesthesiologist Coding
[2019-07-14] MEDS ORDERED: ALBUMIN 5% 500 ML IV ONE (16:46)
--- NOTE | 2019-07-14 16:53 | XRay Report ---
XR chest 1V portable CLINICAL HISTORY: Hypoxia/fever COMPARISON STUDY: 07/12/2019 FINDINGS: The chest has an emphysematous configuration. There is no failure. There is no lobar consol idation. Surgical clips project over the upper left axillary region. There are linear parenchymal opa cities in the right upper lung zone, likely atelectatic. There are no pleural effusions.[ IMPRESSION: Interval development of linear right perihilar and upper lung zone opacities, likely atel ectatic. No evidence of lobar consolidation Electronically signed by: Michael Navarro M.D. 07/14/2019 4:52 PM
--- NOTE | 2019-07-14 16:56 | Anesthesiology Progress Note ---
Date of Service July 14, 2019 Anesthesia Post Procedure Vital Signs Vital Signs: Temp Pulse Pulse Resp BP BP BP 07/14/19 16:28 36.8 C 110 H 14 98/58 L 07/14/19 16:19 110 H 14 98/58 L 07/14/19 16:10 112 H 15 87/53 L 07/14/19 16:00 108 H 15 90/59 L 07/14/19 15:50 115 H 22 78/53 L 07/14/19 15:40 120 H 22 80/44 L 07/14/19 15:30 121 H 24 85/54 L 07/14/19 15:20 120 H 29 H 88/60 L 07/14/19 15:10 122 H 23 80/64 L 07/14/19 15:01 133 H 28 H 07/14/19 15:00 122 H 30 H 109/72 07/14/19 14:52 151 H 141/114 H 07/14/19 14:51 130 H 147/105 H 07/14/19 14:50 133 H 30 H 147/105 H 07/14/19 14:42 37.9 C H 151 H 33 H 141/114 H 07/14/19 12:33 36.6 C 93 H 20 122/65 07/14/19 11:16 36.4 C L 95 H 18 121/76 07/14/19 07:43 36.5 C 92 H 19 143/80 H 07/14/19 03:55 36.6 C 89 17 106/63 07/14/19 00:26 36.9 C 79 19 132/79 07/14/19 00:15 80 07/13/19 19:31 36.5 C 83 22 116/72 Pulse Ox 07/14/19 16:28 98 07/14/19 16:19 98 07/14/19 16:10 97 07/14/19 16:00 97 07/14/19 15:50 97 07/14/19 15:40 100 07/14/19 15:30 100 07/14/19 15:20 100 07/14/19 15:10 100 07/14/19 15:01 99 07/14/19 15:00 100 07/14/19 14:52 07/14/19 14:51 07/14/19 14:50 100 07/14/19 14:42 90 07/14/19 12:33 94 07/14/19 11:16 93 07/14/19 07:43 93 07/14/19 03:55 90 07/14/19 00:26 92 07/14/19 00:15 07/13/19 19:31 94 Pain Intensity Left Groin: Pain Intensity: 5 Transfer of Care Handoff Completed per policy Notes Mental Status: alert / awake / arousable and participated in evaluation Patient Amnestic to Procedure: Yes Nausea / Vomiting: adequately controlled Pain: adequately controlled Airway Patency, RR, SpO2: stable & adequate BP & HR: stable & adequate and see Notes below Hydration State: stable & adequate and see Notes below Anesthetic Complications: no major complications apparent and Pt Satisfied with anesthetic care Notes: Patient developed significant HOTN while in PACU requiring aggressive IV fluids and pressor support. (Please see nursing notes for details). Patient was placed in trendelenberg for perfusion. patient was awake, conversant and appropriate throughout. Verbal permission was gained from patient for placement of urgent monique with Stefani CAN PUSHER and Lenin Moss CRNA as witnesses. Monique placed as documented. Patient given 500 ml of albumin due to poor response to pressors and crystaloid with good effect. On discharge from PACU blood pressure was appropriate and stable and patient was no longer requiring pressor support or rapid infusion of IVF.
[2019-07-14] MEDS ORDERED: VANCOMYCIN CONSULT ACTIVE PRN (17:34)
[2019-07-14] MEDS ORDERED: VANCOMYCIN HCL 1 MG in SODIUM CHLORIDE 0.9% 250 ML IV STA (17:34)
[2019-07-14] MEDS ORDERED: VANCOMYCIN HCL 2,500 MG in SODIUM CHLORIDE 0.9% 500 ML IV SCH (18:00)
[2019-07-14] MEDS: AZTREONAM 1,000 MG in DEXTROSE 5% 100 ML IV SCH (18:07)
[2019-07-14] MEDS: LACTATED RINGER'S 1,000 ML IV SCH (18:42)
[2019-07-14] MEDS: INSULIN GLARGINE SOLOSTAR 100 UNITS/ML 3 ML PEN SC SCH (21:40)
[2019-07-15] MEDS: MoRPHine SULFATE 4 MG/ML 1 ML CARP\\VIAL IV PRN ×5 (00:06→22:39)
[2019-07-15] MEDS: AZTREONAM 1,000 MG in DEXTROSE 5% 100 ML IV SCH ×3 (03:09→17:13)
[2019-07-15 05:18] LABS: BUN Creatinine Ratio 17.1 (10-20); Calcium 8.1 mg/dl (8.5-10.1); Creatinine Clr Calc Pharmacy 207.7 ml/min; Est GFR (African American) 138.5; Est GFR (Non-African American) 119.5; Potassium 4.2 mmol/L (3.5-5.1)
[2019-07-15] MEDS: VANCOMYCIN HCL 2,000 MG in SODIUM CHLORIDE 0.9% 500 ML IV SCH ×2 (06:19→18:00)
[2019-07-15] MEDS: ASPIRIN 325 MG ECTAB PO SCH (08:14)
[2019-07-15] MEDS: LACTATED RINGER'S 1,000 ML IV SCH (08:14)
[2019-07-15] MEDS: lisinopriL 40 MG TAB PO SCH (08:14)
[2019-07-15] MEDS: GABAPENTIN 800 MG TAB PO SCH ×2 (08:14→21:04)
--- NOTE | 2019-07-15 08:14 | Critical Care Progress Note ---
Date of Service July 15, 2019 Assessment & Plan (1) Shock circulatory: -- Distributive shock etiology still unclear T-max 38.1 Celsius post OR. Had a discussion with a surgeon which says there was no apparent infection of the site but there was bleeding which was taken care of. Patient has history of anesthetic procedures with no complications, unlikely to be malignant hyperthermia Need to rule out sepsis, questionable aspiration We will give the patient loading dose of vancomycin and aztreonam given the patient is allergic to penicillin Follow-up septic work-up including blood culture, ESR: 47, CRP: 3.68 and procalcitonin: 0.61 Patient did not require any vasopressor support. Responded to fluids. - PVD s/p fem-pop and Axilo-bifemoral bypas - COPD with probable Sleep apnea c/w inhaled therapy BiPAP qhs and PRN SOB -- DM-II will put patient on ISS -- HTN -- DVT prophylaxis: IPC's given that the patient was bleeding --Cardiac diabetic diet Plan: Repeat H&H at 11 AM Start nebulized therapy for his underlying COPD Patient is hemodynamically stable to be downgraded. Remove arterial line. Subjective Patient seen and examined at bedside. No acute distress. Patient is awake alert oriented. Answering all the questions appropriately. Feeling better. No chest pain, no shortness of breath, no headache, no nausea, no vomiting. Patient has oozing from the left groin site where the revision took place in the OR. There is a drop in hemoglobin from 15 to 12.7. Will repeat H&H at 11 AM. Left lower extremity pedal pulse still very feeble. Afebrile since coming to the medical ICU. Review of Systems Review of Systems: All systems reviewed & are unremarkable except as noted in HPI & below Physical Exam Physical Exam: Constitutional: No acute distress, was about to have breakfast prior to examination. HEENT: PERRLA, EOMI Respiratory system: Good inspiratory effort, positive bilateral wheeze, no crackles, no rhonchi CVS: S1-S2 positive, no murmurs or gallops Abdomen: Soft, nontender, nondistended, positive bowel sounds x4 Extremities: Febrile pulse left dorsalis pedis, no cyanosis of the left toes, delayed capillary refill on the left foot, +2 pulses bilaterally b/l radialis/ rt dorsalis pedis, left groin and left foot bandaged, left thigh is bigger in size compared to the right(unknown baseline) Neuro: Awake alert oriented x3, able to move all extremities actively Psych: Normal mood and affect G/U: No Santos Left radial arterial line. Lymphatic: no cervical or axillary lymphadenopathy Results & Data Vital Signs (Past 12 Hours) Vital Signs Temp Pulse Resp BP Pulse Ox 07/15/19 07:00 93 H 19 103/63 96 07/15/19 06:32 99 H 18 142/83 H 07/15/19 06:00 93 H 16 105/61 95 07/15/19 05:30 90 23 102/65 92 07/15/19 05:00 92 H 22 108/64 93 07/15/19 04:30 98 H 18 105/66 91 07/15/19 04:00 36.8 C 95 H 24 121/72 91 07/15/19 03:30 96 H 25 H 112/61 88 L 07/15/19 03:00 99 H 20 109/62 93 07/15/19 02:30 102 H 23 105/60 95 07/15/19 02:00 37 C 101 H 15 115/61 95 07/15/19 01:30 104 H 19 102/62 95 07/15/19 01:00 97 H 26 H 99/67 L 96 07/15/19 00:30 100 H 23 127/77 93 07/15/19 00:00 36.8 C 99 H 18 130/69 98 07/14/19 23:30 88 26 H 123/63 97 07/14/19 23:00 93 H 25 H 110/63 98 07/14/19 22:30 92 H 24 101/64 96 07/14/19 22:00 97 H 23 114/64 85 L 07/14/19 21:45 97 H 17 99 07/14/19 21:31 97 H 22 91/64 L 98 07/14/19 21:30 101 H 13 99 07/14/19 21:15 101 H 16 99 07/14/19 21:00 97 H 22 111/63 07/14/19 20:45 101 H 22 07/14/19 20:30 95 H 24 110/61 94 07/14/19 20:15 98 H 24 94 Laboratory Results 07/15/19 04:25 07/15/19 04:25 07/15/19 07/15/19 07/14/19 Range/Units 04:25 04:25 21:34 WBC (4.8-10.8) K/uL RBC (4.7-6.1) M/uL Hgb 12.4 L (14.0-18.0) g/dL Hct (42-52) % MCV (80-100) fL MCH (25-34) pg MCHC (32-36) g/dL RDW Std Deviation (36.4-46.3) fL RDW Coeff of Maira (11.5-14.5) % Plt Count (130-400) K/uL MPV (7.4-10.4) fL Immature Gran % (Auto) % Neut % (Auto) % Lymph % (Auto) % Rains % (Auto) % Eos % (Auto) % Baso % (Auto) % Immature Gran # (Auto) (0.00-0.02) K/uL Neut # (Auto) (1.4-6.5) K/uL Lymph # (Auto) (1.2-3.4) K/uL Rains # (Auto) (0.11-0.59) K/uL Eos # (Auto) (0-0.5) K/uL Baso # (Auto) (0-0.2) K/uL ESR (0-14) mm/hr Sodium 136 (136-145) mmol/L Potassium 4.2 (3.5-5.1) mmol/L Chloride 104 (98-107) mmol/L Carbon Dioxide 25 (21-32) mmol/L Anion Gap 7.0 (3-11) BUN 9 (7-18) mg/dl Creatinine 0.50 L D (0.6-1.4) mg/dl Est Cr Clr Drug Dosing 207.7 ml/min Est GFR ( Amer) 138.5 Est GFR (Non-Af Amer) 119.5 BUN/Creatinine Ratio 17.1 (10-20) Glucose 143 H (70-99) mg/dl POC Glucose 168 H (70-99) Lactate (0.4-2.0) mmol/L Calcium 8.1 L (8.5-10.1) mg/dl Total Bilirubin (0.2-1) mg/dl AST (15-37) U/L ALT (12-78) U/L Alkaline Phosphatase (45-117) U/L C-Reactive Protein Total Protein (6.4-8.2) gm/dl Albumin (3.4-5.0) gm/dl Globulin (2.5-4.0) gm/dl Albumin/Globulin Ratio (0.9-2) Procalcitonin (0-0.5) ng/ml Nasal Screen MRSA (PCR) (Negative) 07/14/19 07/14/19 07/14/19 Range/Units 17:15 15:44 15:44 WBC 7.22 (4.8-10.8) K/uL RBC 4.54 L (4.7-6.1) M/uL Hgb 15.0 (14.0-18.0) g/dL Hct 44.2 (42-52) % MCV 97.4 (80-100) fL MCH 33.0 (25-34) pg MCHC 33.9 (32-36) g/dL RDW Std Deviation 50.5 H (36.4-46.3) fL RDW Coeff of Maira 14.1 (11.5-14.5) % Plt Count 253 (130-400) K/uL MPV 8.7 (7.4-10.4) fL Immature Gran % (Auto) 1.1 % Neut % (Auto) 89.7 % Lymph % (Auto) 8.3 % Rains % (Auto) 0.7 % Eos % (Auto) 0.1 % Baso % (Auto) 0.1 % Immature Gran # (Auto) 0.08 H (0.00-0.02) K/uL Neut # (Auto) 6.47 (1.4-6.5) K/uL Lymph # (Auto) 0.60 L (1.2-3.4) K/uL Rains # (Auto) 0.05 L (0.11-0.59) K/uL Eos # (Auto) 0.01 (0-0.5) K/uL Baso # (Auto) 0.01 (0-0.2) K/uL ESR (0-14) mm/hr Sodium 138 (136-145) mmol/L Potassium 4.4 D (3.5-5.1) mmol/L Chloride 107 (98-107) mmol/L Carbon Dioxide 23 (21-32) mmol/L Anion Gap 8.0 (3-11) BUN 12 (7-18) mg/dl Creatinine 0.81 (0.6-1.4) mg/dl Est Cr Clr Drug Dosing 128.2 ml/min Est GFR ( Amer) 113.5 Est GFR (Non-Af Amer) 98.0 BUN/Creatinine Ratio 14.8 (10-20) Glucose 184 H (70-99) mg/dl POC Glucose (70-99) Lactate (0.4-2.0) mmol/L Calcium 8.8 (8.5-10.1) mg/dl Total Bilirubin 0.6 (0.2-1) mg/dl AST 14 L (15-37) U/L ALT 12 (12-78) U/L Alkaline Phosphatase 87 (45-117) U/L C-Reactive Protein 3.68 H Total Protein 6.5 (6.4-8.2) gm/dl Albumin 2.7 L (3.4-5.0) gm/dl Globulin 3.8 (2.5-4.0) gm/dl Albumin/Globulin Ratio 0.7 L (0.9-2) Procalcitonin (0-0.5) ng/ml Nasal Screen MRSA (PCR) Positive A (Negative) 07/14/19 07/14/19 07/14/19 Range/Units 15:44 15:44 15:44 WBC (4.8-10.8) K/uL RBC (4.7-6.1) M/uL Hgb (14.0-18.0) g/dL Hct (42-52) % MCV (80-100) fL MCH (25-34) pg MCHC (32-36) g/dL RDW Std Deviation (36.4-46.3) fL RDW Coeff of Maira (11.5-14.5) % Plt Count (130-400) K/uL MPV (7.4-10.4) fL Immature Gran % (Auto) % Neut % (Auto) % Lymph % (Auto) % Rains % (Auto) % Eos % (Auto) % Baso % (Auto) % Immature Gran # (Auto) (0.00-0.02) K/uL Neut # (Auto) (1.4-6.5) K/uL Lymph # (Auto) (1.2-3.4) K/uL Rains # (Auto) (0.11-0.59) K/uL Eos # (Auto) (0-0.5) K/uL Baso # (Auto) (0-0.2) K/uL ESR (0-14) mm/hr Sodium (136-145) mmol/L Potassium (3.5-5.1) mmol/L Chloride (98-107) mmol/L Carbon Dioxide (21-32) mmol/L Anion Gap (3-11) BUN (7-18) mg/dl Creatinine (0.6-1.4) mg/dl Est Cr Clr Drug Dosing ml/min Est GFR ( Amer) Est GFR (Non-Af Amer) BUN/Creatinine Ratio (10-20) Glucose (70-99) mg/dl POC Glucose (70-99) Lactate 2.6 H* (0.4-2.0) mmol/L Calcium (8.5-10.1) mg/dl Total Bilirubin (0.2-1) mg/dl AST (15-37) U/L ALT (12-78) U/L Alkaline Phosphatase (45-117) U/L C-Reactive Protein Cancelled Total Protein (6.4-8.2) gm/dl Albumin (3.4-5.0) gm/dl Globulin (2.5-4.0) gm/dl Albumin/Globulin Ratio (0.9-2) Procalcitonin 0.61 H (0-0.5) ng/ml Nasal Screen MRSA (PCR) (Negative) 07/14/19 07/14/19 07/14/19 Range/Units 15:44 14:43 11:58 WBC (4.8-10.8) K/uL RBC (4.7-6.1) M/uL Hgb (14.0-18.0) g/dL Hct (42-52) % MCV (80-100) fL MCH (25-34) pg MCHC (32-36) g/dL RDW Std Deviation (36.4-46.3) fL RDW Coeff of Maira (11.5-14.5) % Plt Count (130-400) K/uL MPV (7.4-10.4) fL Immature Gran % (Auto) % Neut % (Auto) % Lymph % (Auto) % Rains % (Auto) % Eos % (Auto) % Baso % (Auto) % Immature Gran # (Auto) (0.00-0.02) K/uL Neut # (Auto) (1.4-6.5) K/uL Lymph # (Auto) (1.2-3.4) K/uL Rains # (Auto) (0.11-0.59) K/uL Eos # (Auto) (0-0.5) K/uL Baso # (Auto) (0-0.2) K/uL ESR 47 H (0-14) mm/hr Sodium (136-145) mmol/L Potassium (3.5-5.1) mmol/L Chloride (98-107) mmol/L Carbon Dioxide (21-32) mmol/L Anion Gap (3-11) BUN (7-18) mg/dl Creatinine (0.6-1.4) mg/dl Est Cr Clr Drug Dosing ml/min Est GFR ( Amer) Est GFR (Non-Af Amer) BUN/Creatinine Ratio (10-20) Glucose (70-99) mg/dl POC Glucose 158 H 161 H (70-99) Lactate (0.4-2.0) mmol/L Calcium (8.5-10.1) mg/dl Total Bilirubin (0.2-1) mg/dl AST (15-37) U/L ALT (12-78) U/L Alkaline Phosphatase (45-117) U/L C-Reactive Protein Total Protein (6.4-8.2) gm/dl Albumin (3.4-5.0) gm/dl Globulin (2.5-4.0) gm/dl Albumin/Globulin Ratio (0.9-2) Procalcitonin (0-0.5) ng/ml Nasal Screen MRSA (PCR) (Negative) PG Care Time/CCT Total # of Minutes Spent Total Time Spent with Patient: Total time spent is greater than 50% in coordination of care (as documented) at patient's floor/unit and/or counseling patient: Critical Care Time: Yes Total Critical Care Time: 33
[2019-07-15] MEDS: ALBUT/IPRATROP 3MG/0.5MG NEB 3 ML VIAL NEB SCH ×3 (08:41→18:56)
--- NOTE | 2019-07-15 09:58 | Pharmacy Report ---
Pharmacy Abx Initial Consult - Date of Service July 15, 2019 - Pharmacy Dosing Scope Date of Consult: 07/15/19 Consultation requested by: Dr. Delarosa Pharmacy is consulted to initiate Vancomycin IV dosing therapy, order appropriate labs and adjust drug dose/frequency. - Subjective The patient is a 59 year old M admitted on 07/12/19 15:34. - Objective Height: 5 ft 11 in Weight: 97.6 kg Vital Signs (Past 12hrs): Vital Signs Temp Pulse Pulse Resp BP Pulse Ox 07/15/19 08:41 93 H 16 93 07/15/19 08:30 92 H 24 107/63 93 07/15/19 08:00 36.9 C 91 H 25 H 119/65 96 07/15/19 07:30 97 H 17 118/64 96 07/15/19 07:00 93 H 19 103/63 96 07/15/19 06:32 99 H 18 142/83 H 07/15/19 06:00 93 H 16 105/61 95 07/15/19 05:30 90 23 102/65 92 07/15/19 05:00 92 H 22 108/64 93 07/15/19 04:30 98 H 18 105/66 91 07/15/19 04:00 36.8 C 95 H 24 121/72 91 07/15/19 03:30 96 H 25 H 112/61 88 L 07/15/19 03:00 99 H 20 109/62 93 07/15/19 02:30 102 H 23 105/60 95 07/15/19 02:00 37 C 101 H 15 115/61 95 07/15/19 01:30 104 H 19 102/62 95 07/15/19 01:00 97 H 26 H 99/67 L 96 07/15/19 00:30 100 H 23 127/77 93 07/15/19 00:00 36.8 C 99 H 18 130/69 98 07/14/19 23:30 88 26 H 123/63 97 07/14/19 23:00 93 H 25 H 110/63 98 07/14/19 22:30 92 H 24 101/64 96 07/14/19 22:00 97 H 23 114/64 85 L Lab Results (24hrs): Laboratory Tests (24 Hours) 07/15/19 07/14/19 07/14/19 04:25 15:44 15:44 WBC 7.22 Neut # (Auto) 6.47 ESR Creatinine 0.50 L D 0.81 Est Cr Clr Drug Dosing 207.7 128.2 C-Reactive Protein 3.68 H Procalcitonin 07/14/19 07/14/19 07/14/19 15:44 15:44 15:44 WBC Neut # (Auto) ESR 47 H Creatinine Est Cr Clr Drug Dosing C-Reactive Protein Cancelled Procalcitonin 0.61 H Micro Results: 07/14/19 13:41 Gram Stain - Final Thigh,Left 07/14/19 15:44 Anaerobic Blood Culture - Pending Blood 07/14/19 16:31 Aerobic Blood Culture - Pending Blood Anaerobic Blood Culture - Pending - Risk Factors for Resistance * None appreciated at this time. - Assessment & Plan Assessment Mr. Alegria is a 59 year old M who presented to the ED with bleeding from the left groin. He underwent a left femoral bypass a week ago. He was told he had a hematoma post-op, which was diagnosed by US. According the patient, the hematoma burst a day or two after surgery and has been bleeding since. Claims it was dark to light colored blood. No pus noted. He felt tired and lightheaded. Patient was taken to OR on 07/14 to repair groin. Became tachycardic and spiked a fever post-op. Tmax 38.1. 1/2 blood cultures growing GPCs in chains Left groin culture growing group b beta strep -- likely source of sepsis. ID Consulted. Patient has an allergy to penicillins - throat swelling. Plan Vancomycin for treatment of gram positive skin and soft tissue infection at surgical site. Vancomycin IV * Estimated PK Parameters: Vd 0.7 L/kg, Raghav 0.08 hr-1, t1/2 8 hr * Loading dose: 2500 mg (22 mg/kg) * Maintenance dose: 2000 mg IV (17 mg/kg) every 12 hours * Goal trough level : 10 to 15 mcg/mL - closer to 15. * Trough/Random level ordered for 07/16/19 before 1800 dose. Pharmacy will continue to follow and will adjust dose/frequency as necessary. Thank you.
[2019-07-15 11:09] LABS: Hematocrit (blood only) 36.7 % (42-52)
--- NOTE | 2019-07-15 13:51 | Infectious Disease Consult ---
Date of Consultation July 15, 2019 Assessment & Plan (1) Streptococcal sepsis: 59 yo male with gram positive, likely group B Streptococcal sepsis with groin wound infection. Pending final identification and sensitivities, would continue on IV vancomycin. Will follow. History of Present Illness Reason for Consultation: + blood cultures post left groin graft Attending Physician: Denis Alanis MD History of Present Illness 59-year-old male with history of diabetes mellitus, COPD, peripheral arterial disease, who is status post recent left bypass surgery who was admitted with bleeding from the left groin wound. He underwent surgical exploration, then developed fever with signs of septic shock and started on broad-spectrum antibiotics. Patient has improved clinically, blood cultures now positive for gram-positive cocci in chain, wound culture growing group B streptococcus. Patient now off pressors, complaining of left groin pain, currently 5 out of 10 in intensity. Allergies Allergy/AdvReac Type Severity Reaction Status Date / Time Penicillins Allergy Severe THROAT Verified 07/12/19 14:30 SWELLS AND HIVES Home Medications Home Medications Medication Instructions Recorded Confirmed Type Combivent Respimat 2 puff INHALATION QID 05/01/19 07/12/19 History Jardiance 10 mg PO QAM 05/01/19 07/12/19 History Toujeo SoloStar U-300 Insulin 15 unit SUBCUT QPM 05/01/19 07/12/19 History Trulicity 0.75 mg SUBCUT WK 05/01/19 07/12/19 History albuterol sulfate 2 puff INHALATION QID PRN 05/01/19 07/12/19 History aspirin 325 mg PO QAM 05/01/19 07/12/19 History cilostazol 100 mg PO BID 05/01/19 07/12/19 History gabapentin [Neurontin] 800 mg PO BID 05/01/19 07/12/19 History lisinopril 40 mg PO QAM 05/01/19 07/12/19 History metformin 1,000 mg PO BID 05/01/19 07/12/19 History hydrocodone-acetaminophen 1 tab PO QID PRN 05/30/19 07/12/19 History collagenase clostridium histo. 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 Overhauler Required: No Beliefs That Will Affect Care: None Current Living Situation: Spouse Current Living Situation Comment: only Other Information That Helps Us Care for You: No Feels Safe at Home: Yes Safety Concerns: Feels Safe At This Time Smoking Status: Former smoker Tobacco Type: smokeless tobacco ; Cigarettes Per Day: 16 ; Do You Dip or Chew Tobacco: Yes ; Second Hand Exposure: No ; Tobacco Cessation Education Requested by Patient: No Hx Alcohol Use: No Hx Substance Use: Yes substance use type: marijuana Last Used Substance: Unknown Review of Systems Review of Systems: All systems reviewed & are unremarkable except as noted in HPI & below Physical Exam Constitutional: WD/WN, vitals as above comfortable; no acute distress Eyes: PERRL, conjunctivae normal, anicteric sclerae ENMT: external ear and nose normal, oropharynx normal Neck: trachea midline, no thyromegaly neck nontender Respiratory: normal respiratory effort, lungs clear to auscultation normal percussion; does not use accessory muscles Cardiovascular: Rate/Rhythm: regular rate and regular rhythm Heart Sounds: normal S1 and normal S2; no gallop, no murmur and no cardiac rub Vessels: normal peripheral pulses; no JVD Gastrointestinal (Abdomen): normal bowel sounds, soft, nontender, no hepatosplenomegaly Musculoskeletal: no cyanosis or clubbing, extremities motor strength 5/5 Spine: thoracic spine normal to inspection and lumbar spine normal to inspection; no cervical spinal tenderness Skin: no rashes, warm and dry normal turgor and + wound (Surgical dressing in place left groin) Neurologic: patellar DTR's 2+ bilat, sensation intact no focal motor deficits Psychiatric: A+Ox3, euthymic affect Orientation: cooperative Lymphatic: no cervical or axillary lymphadenopathy no inguinal lymphadenopathy Results & Data Vital Signs (Past 12 Hours) Vital Signs Temp Pulse Pulse Resp BP Pulse Ox 07/15/19 13:28 88 16 93 07/15/19 11:00 82 15 99/56 L 93 07/15/19 10:30 85 20 111/62 90 07/15/19 10:00 89 20 111/62 96 07/15/19 09:30 88 21 113/63 90 07/15/19 09:00 88 22 117/61 88 L 07/15/19 08:41 93 H 16 93 07/15/19 08:30 92 H 24 107/63 93 07/15/19 08:00 36.9 C 91 H 25 H 119/65 96 07/15/19 07:30 97 H 17 118/64 96 07/15/19 07:00 93 H 19 103/63 96 07/15/19 06:32 99 H 18 142/83 H 07/15/19 06:00 93 H 16 105/61 95 07/15/19 05:30 90 23 102/65 92 07/15/19 05:00 92 H 22 108/64 93 07/15/19 04:30 98 H 18 105/66 91 07/15/19 04:00 36.8 C 95 H 24 121/72 91 07/15/19 03:30 96 H 25 H 112/61 88 L 07/15/19 03:00 99 H 20 109/62 93 07/15/19 02:30 102 H 23 105/60 95 07/15/19 02:00 37 C 101 H 15 115/61 95 Laboratory Results Short CBC 07/14/19 07/15/19 07/15/19 Range/Units 15:44 04:25 10:56 WBC 7.22 (4.8-10.8) K/uL Hgb 15.0 12.4 L 12.0 L (14.0-18.0) g/dL Hct 44.2 36.7 L (42-52) % Plt Count 253 (130-400) K/uL BMP 07/14/19 07/15/19 15:44 04:25 Sodium 138 136 Potassium 4.4 D 4.2 Chloride 107 104 Carbon Dioxide 23 25 BUN 12 9 Creatinine 0.81 0.50 L D Glucose 184 H 143 H Calcium 8.8 8.1 L Liver Function 07/14/19 Range/Units 15:44 Total Bilirubin 0.6 (0.2-1) mg/dl AST 14 L (15-37) U/L ALT 12 (12-78) U/L Alkaline Phosphatase 87 (45-117) U/L Albumin 2.7 L (3.4-5.0) gm/dl Diagnostic Findings Microbiology 07/14/19 15:44 Blood Aerobic Blood Culture - Preliminary Gram positive cocci in chains 07/14/19 15:44 Blood Anaerobic Blood Culture - Preliminary Gram positive cocci in chains 07/14/19 16:31 Blood Anaerobic Blood Culture - Preliminary Gram positive cocci in chains 07/14/19 13:41 Thigh,Left Gram Stain - Final 07/14/19 13:41 Thigh,Left Aerobic and Anaerobic Culture - Preliminary Group B Beta Strep XR chest 1V portable CLINICAL HISTORY: Hypoxia/fever COMPARISON STUDY: 07/12/2019 FINDINGS: The chest has an emphysematous configuration. There is no failure. There is no lobar consolidation. Surgical clips project over the upper left axillary region. There are linear parenchymal opacities in the right upper lung zone, likely atelectatic. There are no pleural effusions.[ IMPRESSION: Interval development of linear right perihilar and upper lung zone opacities, likely atelectatic. No evidence of lobar consolidation Electronically signed by: Michael Navarro M.D. 07/14/2019 4:52 PM Dictated: 07/14/19 1650 PG Care Time/CCT Total # of Minutes Spent Total Time Spent with Patient: Total time spent is greater than 50% in coordination of care (as documented) at patient's floor/unit and/or counseling patient:
[2019-07-15] MEDS: HYDROCODONE/ACETAMINOPHEN 10/325 TAB PO PRN (14:16)
--- NOTE | 2019-07-15 20:58 | Surgery Progress Note ---
Date of Service July 15, 2019 Assessment & Plan (1) Streptococcal sepsis: cultures positive in blood and left groin. Possibly graft infection of the new graft just inserted. Continue antibiotics at this time (2) Postoperative hemorrhage from incision: No active bleeding from groin appreciated at this time Subjective Patient more oriented and alert this am. Complaining of left groin pain. Denies rest pain of left leg Physical Exam Constitutional: WD/WN, vitals as above no acute distress Respiratory: normal respiratory effort; no respiratory distress Cardiovascular: Rate/Rhythm: regular rate and regular rhythm Vessels: posterior tibial pulses present (left present to doppler) Gastrointestinal (Abdomen): Inspection/Auscultation: abdomen not distended Skin: + wound (small amount of old bloody drainage seen) Results & Data Vital Signs (Past 12 Hours) Vital Signs Temp Pulse Pulse Resp BP Pulse Ox 07/15/19 20:00 84 07/15/19 18:59 86 18 96 07/15/19 18:00 83 18 113/71 95 07/15/19 17:30 82 22 123/66 93 07/15/19 17:00 84 22 145/69 H 95 07/15/19 16:30 95 H 15 122/83 98 07/15/19 16:00 36.6 C 84 19 129/69 94 07/15/19 15:30 91 H 17 124/65 96 07/15/19 15:00 85 13 125/67 95 07/15/19 14:30 83 20 124/67 94 07/15/19 14:00 86 20 117/70 92 07/15/19 13:28 88 16 93 07/15/19 13:00 94 H 17 109/60 96 07/15/19 12:30 90 20 116/71 94 07/15/19 12:00 36.9 C 87 23 101/65 96 07/15/19 11:00 82 15 99/56 L 93 07/15/19 10:30 85 20 111/62 90 07/15/19 10:00 89 20 111/62 96 07/15/19 09:30 88 21 113/63 90 07/15/19 09:00 88 22 117/61 88 L
[2019-07-15] MEDS: INSULIN GLARGINE SOLOSTAR 100 UNITS/ML 3 ML PEN SC SCH (21:04)
[2019-07-16] MEDS: ALBUT/IPRATROP 3MG/0.5MG NEB 3 ML VIAL NEB SCH ×4 (00:47→19:05)
[2019-07-16] MEDS: AZTREONAM 1,000 MG in DEXTROSE 5% 100 ML IV SCH (03:05)
[2019-07-16 05:33] LABS: Creatinine Clr Calc Pharmacy 208.5 ml/min; Est GFR (African American) 143.3; Est GFR (Non-African American) 123.6
[2019-07-16] MEDS: VANCOMYCIN HCL 2,000 MG in SODIUM CHLORIDE 0.9% 500 ML IV SCH ×2 (05:33→18:21)
[2019-07-16] MEDS: lisinopriL 40 MG TAB PO SCH (08:01)
[2019-07-16] MEDS: GABAPENTIN 800 MG TAB PO SCH ×3 (08:01→20:41)
[2019-07-16] MEDS: ASPIRIN 325 MG ECTAB PO SCH (08:01)
[2019-07-16 09:28] LABS: Basophils # (auto) 0.04 K/uL (0-0.2); Basophils % (auto) 0.6 %; Eosinophils # (auto) 0.15 K/uL (0-0.5); Eosinophils % (auto) 2.2 %; Hematocrit (blood only) 37.3 % (42-52); Hemoglobin 12.7 g/dL (14.0-18.0); Immature Granulocytes # (auto) 0.03 K/uL (0.00-0.02); Immature Granulocytes % (auto) 0.4 %; Lymphocytes # (auto) 1.85 K/uL (1.2-3.4); Lymphocytes % (auto) 26.8 %; Mean Corpuscular Hemoglobin 32.6 pg (25-34); Mean Corpuscular Volume 95.9 fL (80-100); Mean Platelet Volume 8.5 fL (7.4-10.4); Monocytes # (auto) 0.55 K/uL (0.11-0.59); Neutrophils # (auto) 4.29 K/uL (1.4-6.5); Platelet Count 240 K/uL (130-400); RDW Coefficient of Variation 14.4 % (11.5-14.5); RDW Standard Deviation 50.8 fL (36.4-46.3); Red Blood Count 3.89 M/uL (4.7-6.1); White Blood Count 6.91 K/uL (4.8-10.8)
[2019-07-16 09:45] LABS: Albumin Level 2.7 gm/dl (3.4-5.0); BUN Creatinine Ratio 17.8 (10-20); Calcium 8.6 mg/dl (8.5-10.1); Creatinine Clr Calc Pharmacy 208.5 ml/min; Est GFR (African American) 143.3; Est GFR (Non-African American) 123.6; Potassium 3.7 mmol/L (3.5-5.1)
[2019-07-16 09:48] LABS: Albumin Globulin Ratio 0.7 (0.9-2); Bilirubin,Total 0.4 mg/dl (0.2-1); Globulin 3.7 gm/dl (2.5-4.0); Total Protein 6.4 gm/dl (6.4-8.2)
--- NOTE | 2019-07-16 09:49 | Surgery Progress Note ---
Date of Service July 16, 2019 Assessment & Plan (1) Postoperative hemorrhage from incision: At this point he is stable. I do not see any active bleeding presently. We will continue his current therapy and treatment with antibiotics. The pain on the final culture and sensitivity will determine whether we need to remove the graft which is recently placed. At this point he does not meet ICU criteria per the pearl peller social therefore be transferred to the PCU telemetry unit. Subjective Patient's awake alert oriented x3. He is complaining some mild groin pain. He denies any foot pain. Physical Exam Physical Exam: On exam he has a pressure dressing in place in the left groin. There is no bleeding seen the groin is soft to palpation. His left foot is pink with a Doppler signals present. Blood cultures are growing gram-positive cocci. He grew out staph species from his left foot and a beta strep from his left groin. Constitutional: WD/WN, vitals as above Results & Data Vital Signs (Past 12 Hours) Vital Signs Temp Pulse Pulse Resp BP Pulse Ox 07/16/19 06:53 77 19 95 07/16/19 05:00 83 22 122/64 89 L 07/16/19 04:00 36.6 C 83 22 128/58 L 93 07/16/19 03:00 84 21 112/66 93 07/16/19 02:00 84 16 126/71 95 07/16/19 01:00 88 22 106/63 95 07/16/19 00:00 36.4 C L 83 20 112/67 96 07/15/19 23:00 88 22 126/61 96 07/15/19 22:00 83 20 113/66 95
--- NOTE | 2019-07-16 11:00 | Critical Care Progress Note ---
Date of Service July 16, 2019 Assessment & Plan (1) Shock circulatory: -- Distributive shock secondary to strep bacteremia could be secondary to infected graft T-max 38.1 Celsius post OR. Had a discussion with a surgeon which says there was no apparent infection of the site but there was bleeding which was taken care of. Patient has history of anesthetic procedures with no complications, unlikely to be malignant hyperthermia Continue with vancomycin. ID on board. Blood culture growing gram-positive strep, ESR: 47, CRP: 3.68 and procalcitonin: 0.61 Left heel wound culture growing staph - PVD s/p fem-pop and Axilo-bifemoral bypas - COPD with probable Sleep apnea c/w inhaled therapy BiPAP qhs and PRN SOB -- DM-II will put patient on ISS -- HTN -- DVT prophylaxis: IPC's given that the patient is bleeding --Cardiac diabetic diet Plan: DC aztreonam. Repeat blood culture in a.m. H&H stable Patient is hemodynamically stable to be downgraded. Remove arterial line prior to downgrade Case discussed with Dr. Alanis. Subjective Patient seen and examined at bedside. No acute distress. Patient is resting of the left groin was changed twice in the last 24 hours. Very small hematoma around the site. Denies any chest pain, no headache, no nausea, no vomiting, no dizziness, no palpitation. Good diet, urinating well. Review of Systems Review of Systems: All systems reviewed & are unremarkable except as noted in HPI & below Physical Exam Physical Exam: Constitutional: No acute distress HEENT: PERRLA, EOMI Respiratory system: Good inspiratory effort, positive bilateral wheeze, no c rackles, no rhonchi CVS: S1-S2 positive, no murmurs or gallops Abdomen: Soft, nontender, nondistended, positive bowel sounds x4 Extremities: Feeble pulse left dorsalis pedis, no cyanosis of the left toes, delayed capillary refill on the left foot, +2 pulses bilaterally b/l radialis/ rt dorsalis pedis, left groin and left foot bandaged, left thigh is bigger in size compared to the right(unknown baseline), small hematoma around the left groin site Neuro: Awake alert oriented x3, able to move all extremities actively Psych: Normal mood and affect G/U: No Santos Left radial arterial line. Lymphatic: no cervical or axillary lymphadenopathy Results & Data Vital Signs (Past 12 Hours) Vital Signs Temp Pulse Pulse Resp BP Pulse Ox 07/16/19 06:53 77 19 95 07/16/19 05:00 83 22 122/64 89 L 07/16/19 04:00 36.6 C 83 22 128/58 L 93 07/16/19 03:00 84 21 112/66 93 07/16/19 02:00 84 16 126/71 95 07/16/19 01:00 88 22 106/63 95 07/16/19 00:00 36.4 C L 83 20 112/67 96 07/15/19 23:00 88 22 126/61 96 Laboratory Results 07/16/19 09:07 07/16/19 09:07 Hemoglobin is stable today 12.7. PG Care Time/CCT Total # of Minutes Spent Total Time Spent with Patient: Total time spent is greater than 50% in coordination of care (as documented) at patient's floor/unit and/or counseling patient: Critical Care Time: Yes Total Critical Care Time: 32
[2019-07-16] MEDS: HYDROCODONE/ACETAMINOPHEN 10/325 TAB PO PRN ×2 (16:37→22:42)
[2019-07-16] MEDS ORDERED: VANCOMYCIN TROUGH ONE (17:30)
--- NOTE | 2019-07-16 18:33 | Pharmacy Report ---
Pharmacy Abx Dose Short Note - Date of Service July 16, 2019 - Assessment & Plan Assessment 59 year old M receiving IV Vancomycin for treatment of likely SSSTI - presented to ED on 07/14 with bleeding from his L groin, underwent a L femoral bypass approximately one week ago - patient was found to have a hematoma post-op which was diagnosed via ultrasound - underwent repair of L groin on 07/14 subsequently becoming tachycardic and febrile post-op - 07/14 blood cultures are growing group B beta strep in 3/4 bottles - 07/14 gram stain of L groin grew group B beta strep - 07/15 gram stain of L groin grew Staph species, likely contaminants - ID consulted, recommends continuing vancomycin for now - Day # 2 of antimicrobial therapy. Plan Vancomycin * Trough level of 13.0 mcg/mL is therapeutic for SSSTI * Continue dose of 2000 mg IV every 12 hours * Goal trough level for SSSTI: 15 mcg/mL * Trough level ordered for: 07/18/19 prior to 1800 dose Pharmacy will continue to follow and will adjust dose/frequency as necessary. Thank you.
[2019-07-16] MEDS: INSULIN GLARGINE SOLOSTAR 100 UNITS/ML 3 ML PEN SC SCH (20:40)
[2019-07-17] MEDS: ALBUT/IPRATROP 3MG/0.5MG NEB 3 ML VIAL NEB SCH ×5 (00:31→20:11)
[2019-07-17] MEDS: MoRPHine SULFATE 4 MG/ML 1 ML CARP\\VIAL IV PRN (03:10)
[2019-07-17] MEDS: VANCOMYCIN HCL 2,000 MG in SODIUM CHLORIDE 0.9% 500 ML IV SCH ×3 (06:09→18:51)
[2019-07-17 07:17] LABS: Basophils # (auto) 0.04 K/uL (0-0.2); Basophils % (auto) 0.6 %; Eosinophils # (auto) 0.13 K/uL (0-0.5); Hematocrit (blood only) 40.7 % (42-52); Hemoglobin 13.3 g/dL (14.0-18.0); Immature Granulocytes # (auto) 0.04 K/uL (0.00-0.02); Immature Granulocytes % (auto) 0.6 %; Lymphocytes # (auto) 2.01 K/uL (1.2-3.4); Lymphocytes % (auto) 31.1 %; Mean Corpuscular Hemoglobin 31.9 pg (25-34); Mean Corpuscular Hgb Conc 32.7 g/dL (32-36); Mean Corpuscular Volume 97.6 fL (80-100); Mean Platelet Volume 8.5 fL (7.4-10.4); Monocytes # (auto) 0.62 K/uL (0.11-0.59); Monocytes % (auto) 9.6 %; Neutrophils # (auto) 3.62 K/uL (1.4-6.5); Neutrophils % (auto) 56.1 %; Platelet Count 264 K/uL (130-400); RDW Coefficient of Variation 14.4 % (11.5-14.5); RDW Standard Deviation 51.3 fL (36.4-46.3); Red Blood Count 4.17 M/uL (4.7-6.1); White Blood Count 6.46 K/uL (4.8-10.8)
--- NOTE | 2019-07-17 07:49 | Anesthesiology Progress Note ---
Date of Service July 17, 2019 Anesthesia Post Procedure Vital Signs Vital Signs: Temp Pulse Pulse Pulse Resp BP BP 07/17/19 07:02 79 20 07/17/19 06:37 36.6 C 77 20 153/77 H 07/17/19 03:15 36.8 C 85 20 103/63 07/17/19 01:04 71 18 07/17/19 00:00 36.6 C 78 17 103/59 L 07/16/19 19:31 36.5 C 76 18 116/66 07/16/19 19:07 71 17 07/16/19 18:48 72 07/16/19 15:53 36.6 C 81 19 123/69 07/16/19 14:28 36.6 C 73 20 121/61 07/16/19 13:48 86 18 07/16/19 13:18 101 H 07/16/19 13:16 132/83 07/16/19 13:00 91 H 20 07/16/19 12:30 79 20 07/16/19 12:00 90 20 07/16/19 11:30 78 19 07/16/19 11:00 74 21 07/16/19 10:30 71 23 07/16/19 10:00 72 18 132/83 07/16/19 09:30 74 21 07/16/19 09:00 81 20 132/105 H 07/16/19 08:30 88 14 07/16/19 08:12 82 20 134/62 07/16/19 08:01 77 21 127/71 07/16/19 08:00 78 20 Pulse Ox 07/17/19 07:02 96 07/17/19 06:37 97 07/17/19 03:15 98 07/17/19 01:04 98 07/17/19 00:00 97 07/16/19 19:31 98 07/16/19 19:07 97 07/16/19 18:48 07/16/19 15:53 97 07/16/19 14:28 96 07/16/19 13:48 95 07/16/19 13:18 07/16/19 13:16 07/16/19 13:00 07/16/19 12:30 07/16/19 12:00 07/16/19 11:30 07/16/19 11:00 07/16/19 10:30 07/16/19 10:00 97 07/16/19 09:30 90 07/16/19 09:00 94 07/16/19 08:30 94 07/16/19 08:12 91 07/16/19 08:01 95 07/16/19 08:00 96 Notes Mental Status: alert / awake / arousable and participated in evaluation Nausea / Vomiting: adequately controlled Pain: adequately controlled Airway Patency, RR, SpO2: stable & adequate BP & HR: stable & adequate Hydration State: stable & adequate
[2019-07-17 07:50] LABS: Creatinine Clr Calc Pharmacy 175.5 ml/min; Est GFR (African American) 134.1; Est GFR (Non-African American) 115.7
[2019-07-17] MEDS: ASPIRIN 325 MG ECTAB PO SCH (08:51)
[2019-07-17] MEDS: GABAPENTIN 800 MG TAB PO SCH ×3 (08:51→20:33)
[2019-07-17] MEDS: lisinopriL 40 MG TAB PO SCH (09:09)
--- NOTE | 2019-07-17 09:14 | Surgery Progress Note ---
Date of Service July 17, 2019 Assessment & Plan (1) Streptococcal sepsis: Pt now with likely infected L groin bypass. Pt discussed with Dr Alanis, recommends removal of L groin bypass and IV abx per ID. Planning to perform removal of graft on 07/21/19. Pt, however, has reservations regarding undergoing further surgery and expresses frustration at current situation. Discussed with pt possible repercussions of refusing surgery. Will tentatively plan for removal of graft on WEDNESDAY. Subjective 59 yo m with multiple medical problems, POD #3 after L groin exploration, seen in f/u today. Pt had L femoral to profunda prosthetic bypass approx 4 weeks ago d/t poorly healing L ankle wound and presented to [facility] with bleeding from L groin wound last week. Underwent exploration without any noted dehiscence. Cultures taken from blood and L groin are positive for streptococcus. Pt admits severe pain L groin, difficulty ambulating d/t pain. Deneis chest pain, SOB, abd pain, N/V, other complaints. Pt expresses frustration. Review of Systems Review of Systems: All systems reviewed & are unremarkable except as noted in HPI & below Physical Exam Constitutional: WD/WN, vitals as above + ill appearing (chronically); no acute distress Respiratory: normal respiratory effort, lungs clear to auscultation Cardiovascular: Rate/Rhythm: regular rate and regular rhythm Vessels: + abnormal peripheral pulses (dopplerable) Gastrointestinal (Abdomen): Inspection/Auscultation: abdomen normal to inspection and normal bowel sounds Percussion/Palpation: abdomen nontender Musculoskeletal: Extremities: strength 5/5 throughout Skin: + wound (L groin incision intact, copious serosan drainage noted. soft tender) Psychiatric: Orientation: alert and oriented x 3 Affect: + anxious affect, + irritable affect and + angry affect Results & Data Vital Signs (Past 12 Hours) Vital Signs Temp Pulse Pulse Resp BP Pulse Ox 07/17/19 07:02 79 20 96 07/17/19 06:37 36.6 C 77 20 153/77 H 97 07/17/19 03:15 36.8 C 85 20 103/63 98 07/17/19 01:04 71 18 98 07/17/19 00:00 36.6 C 78 17 103/59 L 97
--- NOTE | 2019-07-17 14:40 | Infectious Disease Progress Nt ---
Date of Service July 17, 2019 Assessment & Plan (1) Streptococcal sepsis: 59 yo male with group B Streptococcal sepsis with groin wound infection, now growing Staph species. Pending final sensitivities, would continue on IV vancomycin. For probable graft removal Wednesday. Will follow. Subjective Patient seen in follow-up for streptococcal sepsis. Vascular follow-up noted. Blood cultures positive for group B strep, wound culture also growing staphylococcal species. Continues on vancomycin, tolerating without apparent difficulty. Vascular surgery has recommended removal of graft, patient still considering. Review of Systems Review of Systems: All systems reviewed & are unremarkable except as noted in HPI & below Physical Exam Constitutional: WD/WN, vitals as above comfortable; no acute distress Eyes: PERRL, conjunctivae normal, anicteric sclerae ENMT: external ear and nose normal, oropharynx normal Neck: trachea midline, no thyromegaly neck nontender Respiratory: normal respiratory effort, lungs clear to auscultation normal percussion; does not use accessory muscles Cardiovascular: Rate/Rhythm: regular rate and regular rhythm Heart Sounds: normal S1 and normal S2; no gallop, no murmur and no cardiac rub Vessels: normal peripheral pulses; no JVD Gastrointestinal (Abdomen): normal bowel sounds, soft, nontender, no hepatosplenomegaly Musculoskeletal: no cyanosis or clubbing, extremities motor strength 5/5 Spine: thoracic spine normal to inspection and lumbar spine normal to inspection; no cervical spinal tenderness Skin: no rashes, warm and dry normal turgor and + wound (Dressing intact left groin) Neurologic: patellar DTR's 2+ bilat, sensation intact no focal motor deficits Psychiatric: A+Ox3, euthymic affect Orientation: cooperative Lymphatic: no cervical or axillary lymphadenopathy no inguinal lymphadenopathy Results & Data Vital Signs (Past 12 Hours) Vital Signs Temp Pulse Pulse Pulse Resp BP Pulse Ox 07/17/19 13:30 73 18 98 07/17/19 11:44 69 07/17/19 11:30 36.6 C 83 16 132/74 98 07/17/19 07:02 79 20 96 07/17/19 06:37 36.6 C 77 20 153/77 H 97 07/17/19 03:15 36.8 C 85 20 103/63 98 Laboratory Results Short CBC 07/17/19 Range/Units 06:54 WBC 6.46 (4.8-10.8) K/uL Hgb 13.3 L (14.0-18.0) g/dL Hct 40.7 L (42-52) % Plt Count 264 (130-400) K/uL BMP 07/17/19 06:54 Creatinine 0.54 L Diagnostic Findings Microbiology 07/14/19 13:41 Thigh,Left Gram Stain - Final 07/14/19 13:41 Thigh,Left Aerobic and Anaerobic Culture - Preliminary Group B Beta Strep 07/14/19 15:44 Blood Aerobic Blood Culture - Final Group B Beta Strep 07/14/19 15:44 Blood Anaerobic Blood Culture - Final Group B Beta Strep 07/14/19 16:31 Blood Aerobic Blood Culture - Preliminary No growth in Aerobic bottle after 48 hours. 07/14/19 16:31 Blood Anaerobic Blood Culture - Preliminary Group B Beta Strep 07/15/19 12:28 Leg Gram Stain - Final 07/15/19 12:28 Leg Wound Culture - Preliminary Staphylococcus species PG Care Time/CCT Total # of Minutes Spent Total Time Spent with Patient: Total time spent is greater than 50% in coordination of care (as documented) at patient's floor/unit and/or counseling patient:
[2019-07-17] MEDS ORDERED: VANCOMYCIN TROUGH ONE (17:30)
--- NOTE | 2019-07-17 18:36 | Pharmacy Report ---
Pharmacy Abx Dose Short Note - Date of Service July 17, 2019 - Assessment & Plan Assessment 59 year old M receiving IV Vancomycin for treatment of likely SSSTI - presented to ED on 07/14 with bleeding from his L groin, underwent a L femoral bypass approximately one week ago - patient was found to have a hematoma post-op which was diagnosed via ultrasound - underwent repair of L groin on 07/14 subsequently becoming tachycardic and febrile post-op - 07/14 blood cultures are growing group B beta strep in 3/4 bottles, sensitive to ampicillin/ceftriaxone/cefepime/vanc - 10/4 gram stain of L groin grew group B beta strep, sensitive to ampicillin/ceftriaxone/cefepime/vanc - 10/5 gram stain of L groin grew Staph species - ID consulted, recommends continuing vancomycin for now - Day # 3 of antimicrobial therapy. Plan Vancomycin * Trough level of 13.8 mcg/mL is subtherapeutic * Change to 2000 mg IV every 10 hours * Goal trough level for bacteremia: 15 to 20 mcg/mL * Trough level ordered for: 07/19/19 prior to the 1000 dose Pharmacy will continue to follow and will adjust dose/frequency as necessary. Thank you.
[2019-07-17] MEDS: HYDROCODONE/ACETAMINOPHEN 10/325 TAB PO PRN (20:33)
[2019-07-17] MEDS: INSULIN GLARGINE SOLOSTAR 100 UNITS/ML 3 ML PEN SC SCH (20:34)
[2019-07-18] MEDS: ALBUT/IPRATROP 3MG/0.5MG NEB 3 ML VIAL NEB SCH ×4 (00:53→19:23)
[2019-07-18] MEDS: HYDROCODONE/ACETAMINOPHEN 10/325 TAB PO PRN ×3 (02:00→17:18)
[2019-07-18] MEDS: VANCOMYCIN HCL 2,000 MG in SODIUM CHLORIDE 0.9% 500 ML IV SCH ×2 (03:55→13:45)
[2019-07-18 07:19] LABS: Creatinine Clr Calc Pharmacy 154.2 ml/min; Est GFR (African American) 127.6; Est GFR (Non-African American) 110.1
[2019-07-18] MEDS: GABAPENTIN 800 MG TAB PO SCH ×3 (08:53→21:42)
[2019-07-18] MEDS: ASPIRIN 325 MG ECTAB PO SCH (08:53)
[2019-07-18] MEDS: lisinopriL 40 MG TAB PO SCH (08:53)
[2019-07-18] MEDS ORDERED: GLUCAGON FOR INJ 1 MG VIAL IM PRN (10:45)
[2019-07-18] MEDS ORDERED: CARBOHYDRATES FOR HYPOGLYCEMIA PO PRN (10:45)
[2019-07-18] MEDS ORDERED: GLUCOSE 10 TABS/TUBE PO PRN (10:45)
[2019-07-18] MEDS ORDERED: GLUCOSE 40% GEL 15 GM TUBE PO PRN (10:45)
[2019-07-18] MEDS ORDERED: DEXTROSE 50% 50 ML SYRINGE IV PRN (10:45)
[2019-07-18] MEDS ORDERED: POLYETHYLENE (MIRALAX) 17 GM PACK PO PRN (11:03)
[2019-07-18] MEDS ORDERED: bisacodyL 10 MG SUPP PR STA (11:03)
--- NOTE | 2019-07-18 11:07 | Surgery Progress Note ---
Date of Service July 18, 2019 Assessment & Plan (1) Streptococcal sepsis: Pt with infected L groin bypass and sepsis. Pt discussed with Dr Alanis, recommends removal of L groin bypass and IV abx per ID. Planning to perform removal of graft on 07/21/19. Pt agreeable. Subjective 59 yo m with severe PAD, now with L groin wound/BPG infection and septicemia, seen in f/u today. Pt now agreeable to removal of L groin fem-profunda BPG d/t infection. He does c/o some constipation, but denies abd pain or N/V. Has ambulated to bathroom and is OOB to chair as tolerated. No other new complaints. Review of Systems Review of Systems: All systems reviewed & are unremarkable except as noted in HPI & below Physical Exam Constitutional: WD/WN, vitals as above + ill appearing (chronically); no acute distress Respiratory: normal respiratory effort, lungs clear to auscultation Cardiovascular: Rate/Rhythm: regular rate and regular rhythm Vessels: + abnormal peripheral pulses (dopplerable) Gastrointestinal (Abdomen): Inspection/Auscultation: abdomen normal to inspection and normal bowel sounds Percussion/Palpation: abdomen nontender Musculoskeletal: Extremities: strength 5/5 throughout Skin: + wound (L groin incision intact, copious serosan drainage noted. soft tender) Psychiatric: Orientation: alert and oriented x 3 Affect: + anxious affect, + irritable affect and + angry affect Results & Data Vital Signs (Past 12 Hours) Vital Signs Temp Pulse Pulse Resp BP Pulse Ox 07/18/19 08:00 72 07/18/19 07:54 36.6 C 75 18 115/65 94 07/18/19 07:09 77 20 95 07/18/19 03:49 36.6 C 75 19 109/50 L 97 07/18/19 00:00 36.7 C 86 17 122/69 98
[2019-07-18] MEDS: DOCUSATE SODIUM 100 MG CAP PO SCH ×2 (12:05→21:42)
[2019-07-18] MEDS ORDERED: VANCOMYCIN TROUGH SCH (13:30)
--- NOTE | 2019-07-18 15:14 | Pharmacy Report ---
Pharmacy Abx Dose Short Note - Date of Service July 18, 2019 - Assessment & Plan Assessment 59 year old M receiving vancomycin for treatment of group B beta strep bacteremia and groin infection in addition to MRSA wound infection. Day # 5 of antimicrobial therapy. Plan Vancomycin * Trough level of 18 mcg/mL is therapeutic * Continue dose of 2000 mg IV every 10 hours * Goal trough level for bacteremia : 15 to 20 mcg/mL * Trough or random level ordered for: 07/20/19 @7584 Pharmacy will continue to follow and will adjust dose/frequency as necessary. Thank you.
[2019-07-18] MEDS ORDERED: VANCOMYCIN TROUGH ONE (17:30)
[2019-07-18] MEDS: INSULIN GLARGINE SOLOSTAR 100 UNITS/ML 3 ML PEN SC SCH (21:43)
[2019-07-19] MEDS: VANCOMYCIN HCL 2,000 MG in SODIUM CHLORIDE 0.9% 500 ML IV SCH ×3 (00:21→19:52)
[2019-07-19] MEDS: ALBUT/IPRATROP 3MG/0.5MG NEB 3 ML VIAL NEB SCH ×4 (00:58→19:24)
[2019-07-19] MEDS: HYDROCODONE/ACETAMINOPHEN 10/325 TAB PO PRN (08:41)
[2019-07-19] MEDS: GABAPENTIN 800 MG TAB PO SCH ×3 (08:42→19:52)
[2019-07-19] MEDS: ASPIRIN 325 MG ECTAB PO SCH (08:42)
[2019-07-19] MEDS: lisinopriL 40 MG TAB PO SCH (08:42)
[2019-07-19] MEDS: DOCUSATE SODIUM 100 MG CAP PO SCH ×2 (08:42→19:52)
[2019-07-19] MEDS ORDERED: VANCOMYCIN TROUGH ONE ×2 (09:30)
[2019-07-19 10:34] LABS: Creatinine Clr Calc Pharmacy 132.7 ml/min; Est GFR (African American) 119.9; Est GFR (Non-African American) 103.4
--- NOTE | 2019-07-19 13:57 | Surgery Progress Note ---
Date of Service July 19, 2019 Assessment & Plan (1) Streptococcal sepsis: Pt with infected L groin bypass and sepsis. At this point our plan is to remove the infected graft on Wednesday and if needed to replace it with a extra anatomical bovine graft. This was discussed with the patient yesterday. I have discussed the risks options and benefits of the procedure with the patient. The patient understands the risks options and benefits and agrees to the procedure. Subjective The patient is sleeping soundly in bed. There are no apparent new problems. Physical Exam Physical Exam: This incision still draining serous fluid. He has good distal flow. Constitutional: WD/WN, vitals as above Results & Data Vital Signs (Past 12 Hours) Vital Signs Temp Pulse Resp BP BP Pulse Ox 07/19/19 13:27 74 16 90 07/19/19 11:51 36.9 C 71 20 119/63 91 07/19/19 07:25 36.9 C 78 18 100/56 L 93 07/19/19 07:08 76 16 94 07/19/19 04:00 36.9 C 76 19 122/55 L 100
[2019-07-19] MEDS ORDERED: GLUCAGON FOR INJ 1 MG VIAL SQ PRN (18:22)
[2019-07-19] MEDS ORDERED: CARBOHYDRATES FOR HYPOGLYCEMIA PO PRN (18:22)
[2019-07-19] MEDS ORDERED: GLUCOSE 40% GEL 15 GM TUBE PO PRN (18:22)
[2019-07-19] MEDS ORDERED: DEXTROSE 50% 50 ML SYRINGE IV PRN (18:22)
[2019-07-19] MEDS ORDERED: GLUCOSE 10 TABS/TUBE PO PRN (18:22)
--- NOTE | 2019-07-19 18:31 | Hospitalist Consultation ---
Date of Consultation July 19, 2019 Assessment & Plan (1) Diabetes: Patient with history of Type II DM on multiple home agents. A1C in June was 8.3. He reports his blood sugars are high at home, 230's/240's which doesn't quite correlate with an AIC of 8. Blood sugars here have been fairly well controlled in the AM (90 - 174), higher in the afternoons (181-244). He has been receiving Lantus 15u qHS, no daytime coverage. Is tolerating a diet -Recommend giving Lantus 10 u BID -Insulin sliding scale, CF 45 and CR 15 -Will adjust as needed. Goal blood sugar of 80 - 140. -CC diet -Continue to hold home agents - Metformin, Toujeo, Trulicity and Jardiance -Continue home Neurontin for neuropathic pain -Recommend holding Lisinopril prior to planned surgery as it may contribute to intra-operative hypotension Present on Admission?: Yes (2) COPD (chronic obstructive pulmonary disease): COPD without acute exacerbation. Adequate oxygenation on room air. No wheeze -Continue Combivent -Continue Albuterol PRN -Continue to monitor Present on Admission?: Yes (3) Hypertension: Blood pressure stable at present, 138/66 -Lisinopril 40mg po daily. Consider holding prior to planned surgery on Wednesday -Continue to monitor BP Present on Admission?: Yes (4) JAMES on CPAP: Patient with JAMES. States he is compliant with CPAP at home. Does not wish to wear it here -O2 HS -Monitor saturations Present on Admission?: Yes (5) Streptococcal sepsis: Patient with infected left groin bypass. Blood cultures from 07/14/2019 as well as left thigh culture from the same date positive for group B beta streptococcus. Wound culture from 07/15/2019+ for MRSA. Blood cultures from 07/17/2019 2 out of 2 showed no growth to date. Patient is presently afebrile, hemodynamically stable, no leukocytosis. Plan for resection of infected graph on Wednesday with possible replacement with extra anatomical bovine graft. -On Vancomycin per ID -Continue to follow cultures Thank you for this consult. Please do not hesitate to contact the hospitalist team with any additional questions or concerns. We will continue to follow. Present on Admission?: Yes History of Present Illness Reason for Consultation: Diabetes management Attending Physician: Denis Alanis MD History of Present Illness Kennedy Alegria is a 59-year-old man with history of hypertension, diabetes with neuropathy, COPD, extensive peripheral arterial disease and bilateral lower extremity ischemia. History of femoralfemoral artery bypass, history of axillary femoral bypass in the past both performed at outside facility. He follows with vascular surgery for a wound on his left medial malleolus. 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 He had a left femoral to profunda artery prostatic bypass graft performed on [address] Alanis as well as superficial debridement of the left foot wound. Patient did well postoperatively and was discharged home in stable condition on 20 June 2019. Patient subsequently developed bleeding and pain at the surgical site. He was seen by Dr. Alanis in follow-up who performed an ultrasound and told him he had a hematoma which had burst and caused bleeding. He returned to the ER on 12 July complaining of worsening bleeding at his femoral incision site. Patient was admitted. Exploratory surgery performed on 14 July which revealed a small hematoma as well as bleeding from the anastomosis site. Patient subsequently developed sepsis syndrome, fever/tachycardia/hypotension. Blood cultures positive for gram- positive cocci in chains as well as staph. Patient was started on antibiotics and clinically improved. Patient presently doing well. Offers no complaints. Specifically no fever/chills/malaise/chest pain/palpitations/shortness of breath/cough/abdominal pain/nausea/vomiting/diarrhea/constipation. Pain is fairly well controlled. No additional bleeding. Allergies Allergy/AdvReac Type Severity Reaction Status Date / Time Penicillins Allergy Severe THROAT Verified 07/12/19 14:30 KEVEN AND [facility] Home Medications Home Medications Medication Instructions Recorded Confirmed Type Combivent Respimat 2 puff INHALATION QID 05/01/19 07/12/19 History Jardiance 10 mg PO QAM 05/01/19 07/12/19 History Toujeo SoloStar U-300 Insulin 15 unit SUBCUT QPM 05/01/19 07/12/19 History Trulicity 0.75 mg SUBCUT WK 05/01/19 07/12/19 History albuterol sulfate 2 puff INHALATION QID PRN 05/01/19 07/12/19 History aspirin 325 mg PO QAM 05/01/19 07/12/19 History cilostazol 100 mg PO BID 05/01/19 07/12/19 History gabapentin [Neurontin] 800 mg PO BID 05/01/19 07/12/19 History lisinopril 40 mg PO QAM 05/01/19 07/12/19 History metformin 1,000 mg PO BID 05/01/19 07/12/19 History hydrocodone-acetaminophen 1 tab PO QID PRN 05/30/19 07/12/19 History collagenase clostridium histo. 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 PER PT History of bowel resection WITH COLOSTOMY/REVERSAL LATER History of right hip replacement S/P femoral-popliteal bypass surgery X 2-LEFT LEG Family History Mother Family history of diabetes mellitus Uncle Family history of diabetes mellitus Social History Preferred Language: Macedonian Communication Ability: Effective Electronics Processor Required: No Beliefs That Will Affect Care: None Current Living Situation: Spouse Current Living Situation Comment: only Other Information That Helps Us Care for You: No Feels Safe at Home: Yes Safety Concerns: Feels Safe At This Time Smoking Status: Former smoker Tobacco Type: smokeless tobacco ; Cigarettes Per Day: 16 ; Do You Dip or Chew Tobacco: Yes ; Second Hand Exposure: No ; Tobacco Cessation Education Requested by Patient: No Hx Alcohol Use: No Hx Substance Use: Yes substance use type: marijuana Last Used Substance: Unknown Review of Systems Review of Systems: All systems reviewed & are unremarkable except as noted in HPI & below Physical Exam Physical Exam: General: patient resting comfortably, NAD, non-toxic in appearance, AA&O x 4 Skin: warm, dry, left groin dressing in place clean dry and intact HEENT: NC/AT, PERRL, EOMI, anicteric sclera, conjunctiva without injection, external ear normal to inspection and nontender, nares patent, moist mucus membranes, dentition intact, no oropharyngeal lesions, neck supple, trachea midline, no LAD, no thyromegaly, no JVD Heart: +S1/S2, regular, no m/r/g Lungs: equal air entry bilaterally, no rales/rhonchi/wheezes Abd: +BS, soft, NT/ND, no masses/organomegaly/ascites Ext: warm, 2+ pulses in UE/LE bilaterally, no clubbing/cyanosis or edema Neuro: nonfocal, patient AA&O x 4, speech intact, no facial droop, moving all extremities on command with equal strength 5/5 Results & Data Vital Signs (Past 12 Hours) Vital Signs Temp Pulse Pulse Resp BP BP Pulse Ox 07/19/19 16:00 90 07/19/19 15:40 37.0 C 78 19 138/66 92 07/19/19 13:27 74 16 90 07/19/19 11:51 36.9 C 71 20 119/63 91 07/19/19 08:00 103 H 07/19/19 07:25 36.9 C 78 18 100/56 L 93 07/19/19 07:08 76 16 94 Laboratory Results Lab Results 07/12/19 07/12/19 07/12/19 Range/Units 15:10 15:10 15:10 WBC 10.14 (4.8-10.8) K/uL RBC 4.36 L (4.7-6.1) M/uL Hgb 14.3 (14.0-18.0) g/dL Hct 42.4 (42-52) % MCV 97.2 (80-100) fL MCH 32.8 (25-34) pg MCHC 33.7 (32-36) g/dL RDW Std Deviation 51.7 H (36.4-46.3) fL RDW Coeff of Maira 14.4 (11.5-14.5) % Plt Count 251 (130-400) K/uL MPV 9.1 (7.4-10.4) fL Immature Gran % (Auto) 0.4 % Neut % (Auto) 75.3 % Lymph % (Auto) 16.4 % [place] % (Auto) 7.3 % Eos % (Auto) 0.2 % Baso % (Auto) 0.4 % Immature Gran # (Auto) 0.04 H (0.00-0.02) K/uL Neut # (Auto) 7.64 H (1.4-6.5) K/uL Lymph # (Auto) 1.66 (1.2-3.4) K/uL [place] # (Auto) 0.74 H (0.11-0.59) K/uL Eos # (Auto) 0.02 (0-0.5) K/uL Baso # (Auto) 0.04 (0-0.2) K/uL ESR (0-14) mm/hr PT 11.0 (9.0-12.0) Seconds INR 1.1 (0.9-1.1) Sodium 134 L (136-145) mmol/L Potassium 4.2 (3.5-5.1) mmol/L Chloride 101 (98-107) mmol/L Carbon Dioxide 25 (21-32) mmol/L Anion Gap 8.0 (3-11) BUN 14 (7-18) mg/dl Creatinine 0.86 (0.6-1.4) mg/dl Est Cr Clr Drug Dosing 122.3 ml/min Est GFR ( Amer) 110.8 Est GFR (Non-Af Amer) 95.6 BUN/Creatinine Ratio 16.7 (10-20) Glucose 208 H (70-99) mg/dl POC Glucose (70-99) Lactate (0.4-2.0) mmol/L Calcium 8.7 (8.5-10.1) mg/dl Magnesium 2.3 (1.8-2.4) mg/dl Total Bilirubin 0.7 (0.2-1) mg/dl AST 12 L (15-37) U/L ALT 9 L (12-78) U/L Alkaline Phosphatase 60 (45-117) U/L Troponin I < 0.015 (0-0.045) ng/ml C-Reactive Protein Total Protein 7.1 (6.4-8.2) gm/dl Albumin 2.8 L (3.4-5.0) gm/dl Globulin 4.3 H (2.5-4.0) gm/dl Albumin/Globulin Ratio 0.6 L (0.9-2) Procalcitonin (0-0.5) ng/ml TSH 1.010 (0.300-4.500) uIu/ml Nasal Screen MRSA (PCR) (Negative) Vancomycin Trough (See Comment) mcg/ml Blood Type Antibody Screen 07/12/19 07/12/19 07/13/19 Range/Units 15:31 21:16 03:51 WBC (4.8-10.8) K/uL RBC (4.7-6.1) M/uL Hgb (14.0-18.0) g/dL Hct (42-52) % MCV (80-100) fL MCH (25-34) pg MCHC (32-36) g/dL RDW Std Deviation (36.4-46.3) fL RDW Coeff of Maira (11.5-14.5) % Plt Count (130-400) K/uL MPV (7.4-10.4) fL Immature Gran % (Auto) % Neut % (Auto) % Lymph % (Auto) % [place] % (Auto) % Eos % (Auto) % Baso % (Auto) % Immature Gran # (Auto) (0.00-0.02) K/uL Neut # (Auto) (1.4-6.5) K/uL Lymph # (Auto) (1.2-3.4) K/uL [place] # (Auto) (0.11-0.59) K/uL Eos # (Auto) (0-0.5) K/uL Baso # (Auto) (0-0.2) K/uL ESR (0-14) mm/hr PT (9.0-12.0) Seconds INR (0.9-1.1) Sodium (136-145) mmol/L Potassium (3.5-5.1) mmol/L Chloride (98-107) mmol/L Carbon Dioxide (21-32) mmol/L Anion Gap (3-11) BUN (7-18) mg/dl Creatinine (0.6-1.4) mg/dl Est Cr Clr Drug Dosing ml/min Est GFR ( Amer) Est GFR (Non-Af Amer) BUN/Creatinine Ratio (10-20) Glucose (70-99) mg/dl POC Glucose 139 H 119 H (70-99) Lactate (0.4-2.0) mmol/L Calcium (8.5-10.1) mg/dl Magnesium (1.8-2.4) mg/dl Total Bilirubin (0.2-1) mg/dl AST (15-37) U/L ALT (12-78) U/L Alkaline Phosphatase (45-117) U/L Troponin I (0-0.045) ng/ml C-Reactive Protein Total Protein (6.4-8.2) gm/dl Albumin (3.4-5.0) gm/dl Globulin (2.5-4.0) gm/dl Albumin/Globulin Ratio (0.9-2) Procalcitonin (0-0.5) ng/ml TSH (0.300-4.500) uIu/ml Nasal Screen MRSA (PCR) (Negative) Vancomycin Trough (See Comment) mcg/ml Blood Type O Positive Antibody Screen NEGATIVE 07/13/19 07/13/19 07/13/19 Range/Units 06:47 06:47 07:19 WBC (4.8-10.8) K/uL RBC (4.7-6.1) M/uL Hgb 13.8 L (14.0-18.0) g/dL Hct (42-52) % MCV (80-100) fL MCH (25-34) pg MCHC (32-36) g/dL RDW Std Deviation (36.4-46.3) fL RDW Coeff of Maira (11.5-14.5) % Plt Count (130-400) K/uL MPV (7.4-10.4) fL Immature Gran % (Auto) % Neut % (Auto) % Lymph % (Auto) % [place] % (Auto) % Eos % (Auto) % Baso % (Auto) % Immature Gran # (Auto) (0.00-0.02) K/uL Neut # (Auto) (1.4-6.5) K/uL Lymph # (Auto) (1.2-3.4) K/uL [place] # (Auto) (0.11-0.59) K/uL Eos # (Auto) (0-0.5) K/uL Baso # (Auto) (0-0.2) K/uL ESR (0-14) mm/hr PT (9.0-12.0) Seconds INR (0.9-1.1) Sodium 138 (136-145) mmol/L Potassium 4.1 (3.5-5.1) mmol/L Chloride 106 (98-107) mmol/L Carbon Dioxide 27 (21-32) mmol/L Anion Gap 6.0 (3-11) BUN 11 (7-18) mg/dl Creatinine 0.60 (0.6-1.4) mg/dl Est Cr Clr Drug Dosing 175.3 ml/min Est GFR ( Amer) 128.5 Est GFR (Non-Af Amer) 110.8 BUN/Creatinine Ratio 17.6 (10-20) Glucose 114 H (70-99) mg/dl POC Glucose 243 H (70-99) Lactate (0.4-2.0) mmol/L Calcium 8.6 (8.5-10.1) mg/dl Magnesium (1.8-2.4) mg/dl Total Bilirubin (0.2-1) mg/dl AST (15-37) U/L ALT (12-78) U/L Alkaline Phosphatase (45-117) U/L Troponin I (0-0.045) ng/ml C-Reactive Protein Total Protein (6.4-8.2) gm/dl Albumin (3.4-5.0) gm/dl Globulin (2.5-4.0) gm/dl Albumin/Globulin Ratio (0.9-2) Procalcitonin (0-0.5) ng/ml TSH (0.300-4.500) uIu/ml Nasal Screen MRSA (PCR) (Negative) Vancomycin Trough (See Comment) mcg/ml Blood Type Antibody Screen 07/13/19 07/13/19 07/13/19 Range/Units 07:22 11:20 16:10 WBC (4.8-10.8) K/uL RBC (4.7-6.1) M/uL Hgb (14.0-18.0) g/dL Hct (42-52) % MCV (80-100) fL MCH (25-34) pg MCHC (32-36) g/dL RDW Std Deviation (36.4-46.3) fL RDW Coeff of Maira (11.5-14.5) % Plt Count (130-400) K/uL MPV (7.4-10.4) fL Immature Gran % (Auto) % Neut % (Auto) % Lymph % (Auto) % [place] % (Auto) % Eos % (Auto) % Baso % (Auto) % Immature Gran # (Auto) (0.00-0.02) K/uL Neut # (Auto) (1.4-6.5) K/uL Lymph # (Auto) (1.2-3.4) K/uL [place] # (Auto) (0.11-0.59) K/uL Eos # (Auto) (0-0.5) K/uL Baso # (Auto) (0-0.2) K/uL ESR (0-14) mm/hr PT (9.0-12.0) Seconds INR (0.9-1.1) Sodium (136-145) mmol/L Potassium (3.5-5.1) mmol/L Chloride (98-107) mmol/L Carbon Dioxide (21-32) mmol/L Anion Gap (3-11) BUN (7-18) mg/dl Creatinine (0.6-1.4) mg/dl Est Cr Clr Drug Dosing ml/min Est GFR ( Amer) Est GFR (Non-Af Amer) BUN/Creatinine Ratio (10-20) Glucose (70-99) mg/dl POC Glucose 109 H 163 H 148 H (70-99) Lactate (0.4-2.0) mmol/L Calcium (8.5-10.1) mg/dl Magnesium (1.8-2.4) mg/dl Total Bilirubin (0.2-1) mg/dl AST (15-37) U/L ALT (12-78) U/L Alkaline Phosphatase (45-117) U/L Troponin I (0-0.045) ng/ml C-Reactive Protein Total Protein (6.4-8.2) gm/dl Albumin (3.4-5.0) gm/dl Globulin (2.5-4.0) gm/dl Albumin/Globulin Ratio (0.9-2) Procalcitonin (0-0.5) ng/ml TSH (0.300-4.500) uIu/ml Nasal Screen MRSA (PCR) (Negative) Vancomycin Trough (See Comment) mcg/ml Blood Type Antibody Screen 07/13/19 07/14/19 07/14/19 Range/Units 20:28 00:25 05:57 WBC (4.8-10.8) K/uL RBC (4.7-6.1) M/uL Hgb 14.3 (14.0-18.0) g/dL Hct (42-52) % MCV (80-100) fL MCH (25-34) pg MCHC (32-36) g/dL RDW Std Deviation (36.4-46.3) fL RDW Coeff of Maira (11.5-14.5) % Plt Count (130-400) K/uL MPV (7.4-10.4) fL Immature Gran % (Auto) % Neut % (Auto) % Lymph % (Auto) % [place] % (Auto) % Eos % (Auto) % Baso % (Auto) % Immature Gran # (Auto) (0.00-0.02) K/uL Neut # (Auto) (1.4-6.5) K/uL Lymph # (Auto) (1.2-3.4) K/uL [place] # (Auto) (0.11-0.59) K/uL Eos # (Auto) (0-0.5) K/uL Baso # (Auto) (0-0.2) K/uL ESR (0-14) mm/hr PT (9.0-12.0) Seconds INR (0.9-1.1) Sodium (136-145) mmol/L Potassium (3.5-5.1) mmol/L Chloride (98-107) mmol/L Carbon Dioxide (21-32) mmol/L Anion Gap (3-11) BUN (7-18) mg/dl Creatinine (0.6-1.4) mg/dl Est Cr Clr Drug Dosing ml/min Est GFR ( Amer) Est GFR (Non-Af Amer) BUN/Creatinine Ratio (10-20) Glucose (70-99) mg/dl POC Glucose 130 H 131 H (70-99) Lactate (0.4-2.0) mmol/L Calcium (8.5-10.1) mg/dl Magnesium (1.8-2.4) mg/dl Total Bilirubin (0.2-1) mg/dl AST (15-37) U/L ALT (12-78) U/L Alkaline Phosphatase (45-117) U/L Troponin I (0-0.045) ng/ml C-Reactive Protein Total Protein (6.4-8.2) gm/dl Albumin (3.4-5.0) gm/dl Globulin (2.5-4.0) gm/dl Albumin/Globulin Ratio (0.9-2) Procalcitonin (0-0.5) ng/ml TSH (0.300-4.500) uIu/ml Nasal Screen MRSA (PCR) (Negative) Vancomycin Trough (See Comment) mcg/ml Blood Type Antibody Screen 07/14/19 07/14/19 07/14/19 Range/Units 05:57 06:19 11:58 WBC (4.8-10.8) K/uL RBC (4.7-6.1) M/uL Hgb (14.0-18.0) g/dL Hct (42-52) % MCV (80-100) fL MCH (25-34) pg MCHC (32-36) g/dL RDW Std Deviation (36.4-46.3) fL RDW Coeff of Maira (11.5-14.5) % Plt Count (130-400) K/uL MPV (7.4-10.4) fL Immature Gran % (Auto) % Neut % (Auto) % Lymph % (Auto) % [place] % (Auto) % Eos % (Auto) % Baso % (Auto) % Immature Gran # (Auto) (0.00-0.02) K/uL Neut # (Auto) (1.4-6.5) K/uL Lymph # (Auto) (1.2-3.4) K/uL [place] # (Auto) (0.11-0.59) K/uL Eos # (Auto) (0-0.5) K/uL Baso # (Auto) (0-0.2) K/uL ESR (0-14) mm/hr PT (9.0-12.0) Seconds INR (0.9-1.1) Sodium 138 (136-145) mmol/L Potassium 3.8 (3.5-5.1) mmol/L Chloride 103 (98-107) mmol/L Carbon Dioxide 26 (21-32) mmol/L Anion Gap 9.0 (3-11) BUN 11 (7-18) mg/dl Creatinine 0.64 (0.6-1.4) mg/dl Est Cr Clr Drug Dosing 164.3 ml/min Est GFR ( Amer) 125.1 Est GFR (Non-Af Amer) 107.9 BUN/Creatinine Ratio 17.4 (10-20) Glucose 128 H (70-99) mg/dl POC Glucose 126 H 161 H (70-99) Lactate (0.4-2.0) mmol/L Calcium 8.5 (8.5-10.1) mg/dl Magnesium (1.8-2.4) mg/dl Total Bilirubin (0.2-1) mg/dl AST (15-37) U/L ALT (12-78) U/L Alkaline Phosphatase (45-117) U/L Troponin I (0-0.045) ng/ml C-Reactive Protein Total Protein (6.4-8.2) gm/dl Albumin (3.4-5.0) gm/dl Globulin (2.5-4.0) gm/dl Albumin/Globulin Ratio (0.9-2) Procalcitonin (0-0.5) ng/ml TSH (0.300-4.500) uIu/ml Nasal Screen MRSA (PCR) (Negative) Vancomycin Trough (See Comment) mcg/ml Blood Type Antibody Screen 07/14/19 07/14/19 07/14/19 Range/Units 14:43 15:44 15:44 WBC (4.8-10.8) K/uL RBC (4.7-6.1) M/uL Hgb (14.0-18.0) g/dL Hct (42-52) % MCV (80-100) fL MCH (25-34) pg MCHC (32-36) g/dL RDW Std Deviation (36.4-46.3) fL RDW Coeff of Maira (11.5-14.5) % Plt Count (130-400) K/uL MPV (7.4-10.4) fL Immature Gran % (Auto) % Neut % (Auto) % Lymph % (Auto) % [place] % (Auto) % Eos % (Auto) % Baso % (Auto) % Immature Gran # (Auto) (0.00-0.02) K/uL Neut # (Auto) (1.4-6.5) K/uL Lymph # (Auto) (1.2-3.4) K/uL [place] # (Auto) (0.11-0.59) K/uL Eos # (Auto) (0-0.5) K/uL Baso # (Auto) (0-0.2) K/uL ESR 47 H (0-14) mm/hr PT (9.0-12.0) Seconds INR (0.9-1.1) Sodium (136-145) mmol/L Potassium (3.5-5.1) mmol/L Chloride (98-107) mmol/L Carbon Dioxide (21-32) mmol/L Anion Gap (3-11) BUN (7-18) mg/dl Creatinine (0.6-1.4) mg/dl Est Cr Clr Drug Dosing ml/min Est GFR ( Amer) Est GFR (Non-Af Amer) BUN/Creatinine Ratio (10-20) Glucose (70-99) mg/dl POC Glucose 158 H (70-99) Lactate (0.4-2.0) mmol/L Calcium (8.5-10.1) mg/dl Magnesium (1.8-2.4) mg/dl Total Bilirubin (0.2-1) mg/dl AST (15-37) U/L ALT (12-78) U/L Alkaline Phosphatase (45-117) U/L Troponin I (0-0.045) ng/ml C-Reactive Protein Cancelled Total Protein (6.4-8.2) gm/dl Albumin (3.4-5.0) gm/dl Globulin (2.5-4.0) gm/dl Albumin/Globulin Ratio (0.9-2) Procalcitonin (0-0.5) ng/ml TSH (0.300-4.500) uIu/ml Nasal Screen MRSA (PCR) (Negative) Vancomycin Trough (See Comment) mcg/ml Blood Type Antibody Screen 07/14/19 07/14/19 07/14/19 Range/Units 15:44 15:44 15:44 WBC 7.22 (4.8-10.8) K/uL RBC 4.54 L (4.7-6.1) M/uL Hgb 15.0 (14.0-18.0) g/dL Hct 44.2 (42-52) % MCV 97.4 (80-100) fL MCH 33.0 (25-34) pg MCHC 33.9 (32-36) g/dL RDW Std Deviation 50.5 H (36.4-46.3) fL RDW Coeff of Maira 14.1 (11.5-14.5) % Plt Count 253 (130-400) K/uL MPV 8.7 (7.4-10.4) fL Immature Gran % (Auto) 1.1 % Neut % (Auto) 89.7 % Lymph % (Auto) 8.3 % [place] % (Auto) 0.7 % Eos % (Auto) 0.1 % Baso % (Auto) 0.1 % Immature Gran # (Auto) 0.08 H (0.00-0.02) K/uL Neut # (Auto) 6.47 (1.4-6.5) K/uL Lymph # (Auto) 0.60 L (1.2-3.4) K/uL [place] # (Auto) 0.05 L (0.11-0.59) K/uL Eos # (Auto) 0.01 (0-0.5) K/uL Baso # (Auto) 0.01 (0-0.2) K/uL ESR (0-14) mm/hr PT (9.0-12.0) Seconds INR (0.9-1.1) Sodium (136-145) mmol/L Potassium (3.5-5.1) mmol/L Chloride (98-107) mmol/L Carbon Dioxide (21-32) mmol/L Anion Gap (3-11) BUN (7-18) mg/dl Creatinine (0.6-1.4) mg/dl Est Cr Clr Drug Dosing ml/min Est GFR ( Amer) Est GFR (Non-Af Amer) BUN/Creatinine Ratio (10-20) Glucose (70-99) mg/dl POC Glucose (70-99) Lactate 2.6 H* (0.4-2.0) mmol/L Calcium (8.5-10.1) mg/dl Magnesium (1.8-2.4) mg/dl Total Bilirubin (0.2-1) mg/dl AST (15-37) U/L ALT (12-78) U/L Alkaline Phosphatase (45-117) U/L Troponin I (0-0.045) ng/ml C-Reactive Protein Total Protein (6.4-8.2) gm/dl Albumin (3.4-5.0) gm/dl Globulin (2.5-4.0) gm/dl Albumin/Globulin Ratio (0.9-2) Procalcitonin 0.61 H (0-0.5) ng/ml TSH (0.300-4.500) uIu/ml Nasal Screen MRSA (PCR) (Negative) Vancomycin Trough (See Comment) mcg/ml Blood Type Antibody Screen 07/14/19 07/14/19 07/14/19 Range/Units 15:44 17:15 21:34 WBC (4.8-10.8) K/uL RBC (4.7-6.1) M/uL Hgb (14.0-18.0) g/dL Hct (42-52) % MCV (80-100) fL MCH (25-34) pg MCHC (32-36) g/dL RDW Std Deviation (36.4-46.3) fL RDW Coeff of Maira (11.5-14.5) % Plt Count (130-400) K/uL MPV (7.4-10.4) fL Immature Gran % (Auto) % Neut % (Auto) % Lymph % (Auto) % [place] % (Auto) % Eos % (Auto) % Baso % (Auto) % Immature Gran # (Auto) (0.00-0.02) K/uL Neut # (Auto) (1.4-6.5) K/uL Lymph # (Auto) (1.2-3.4) K/uL [place] # (Auto) (0.11-0.59) K/uL Eos # (Auto) (0-0.5) K/uL Baso # (Auto) (0-0.2) K/uL ESR (0-14) mm/hr PT (9.0-12.0) Seconds INR (0.9-1.1) Sodium 138 (136-145) mmol/L Potassium 4.4 D (3.5-5.1) mmol/L Chloride 107 (98-107) mmol/L Carbon Dioxide 23 (21-32) mmol/L Anion Gap 8.0 (3-11) BUN 12 (7-18) mg/dl Creatinine 0.81 (0.6-1.4) mg/dl Est Cr Clr Drug Dosing 128.2 ml/min Est GFR ( Amer) 113.5 Est GFR (Non-Af Amer) 98.0 BUN/Creatinine Ratio 14.8 (10-20) Glucose 184 H (70-99) mg/dl POC Glucose 168 H (70-99) Lactate (0.4-2.0) mmol/L Calcium 8.8 (8.5-10.1) mg/dl Magnesium (1.8-2.4) mg/dl Total Bilirubin 0.6 (0.2-1) mg/dl AST 14 L (15-37) U/L ALT 12 (12-78) U/L Alkaline Phosphatase 87 (45-117) U/L Troponin I (0-0.045) ng/ml C-Reactive Protein 3.68 H Total Protein 6.5 (6.4-8.2) gm/dl Albumin 2.7 L (3.4-5.0) gm/dl Globulin 3.8 (2.5-4.0) gm/dl Albumin/Globulin Ratio 0.7 L (0.9-2) Procalcitonin (0-0.5) ng/ml TSH (0.300-4.500) uIu/ml Nasal Screen MRSA (PCR) Positive A (Negative) Vancomycin Trough (See Comment) mcg/ml Blood Type Antibody Screen 07/15/19 07/15/19 07/15/19 Range/Units 04:25 04:25 08:20 WBC (4.8-10.8) K/uL RBC (4.7-6.1) M/uL Hgb 12.4 L (14.0-18.0) g/dL Hct (42-52) % MCV (80-100) fL MCH (25-34) pg MCHC (32-36) g/dL RDW Std Deviation (36.4-46.3) fL RDW Coeff of Maira (11.5-14.5) % Plt Count (130-400) K/uL MPV (7.4-10.4) fL Immature Gran % (Auto) % Neut % (Auto) % Lymph % (Auto) % [place] % (Auto) % Eos % (Auto) % Baso % (Auto) % Immature Gran # (Auto) (0.00-0.02) K/uL Neut # (Auto) (1.4-6.5) K/uL Lymph # (Auto) (1.2-3.4) K/uL [place] # (Auto) (0.11-0.59) K/uL Eos # (Auto) (0-0.5) K/uL Baso # (Auto) (0-0.2) K/uL ESR (0-14) mm/hr PT (9.0-12.0) Seconds INR (0.9-1.1) Sodium 136 (136-145) mmol/L Potassium 4.2 (3.5-5.1) mmol/L Chloride 104 (98-107) mmol/L Carbon Dioxide 25 (21-32) mmol/L Anion Gap 7.0 (3-11) BUN 9 (7-18) mg/dl Creatinine 0.50 L D (0.6-1.4) mg/dl Est Cr Clr Drug Dosing 207.7 ml/min Est GFR ( Amer) 138.5 Est GFR (Non-Af Amer) 119.5 BUN/Creatinine Ratio 17.1 (10-20) Glucose 143 H (70-99) mg/dl POC Glucose (70-99) Lactate 0.6 (0.4-2.0) mmol/L Calcium 8.1 L (8.5-10.1) mg/dl Magnesium (1.8-2.4) mg/dl Total Bilirubin (0.2-1) mg/dl AST (15-37) U/L ALT (12-78) U/L Alkaline Phosphatase (45-117) U/L Troponin I (0-0.045) ng/ml C-Reactive Protein Total Protein (6.4-8.2) gm/dl Albumin (3.4-5.0) gm/dl Globulin (2.5-4.0) gm/dl Albumin/Globulin Ratio (0.9-2) Procalcitonin (0-0.5) ng/ml TSH (0.300-4.500) uIu/ml Nasal Screen MRSA (PCR) (Negative) Vancomycin Trough (See Comment) mcg/ml Blood Type Antibody Screen 07/15/19 07/15/19 07/16/19 Range/Units 10:56 21:01 04:39 WBC (4.8-10.8) K/uL RBC (4.7-6.1) M/uL Hgb 12.0 L (14.0-18.0) g/dL Hct 36.7 L (42-52) % MCV (80-100) fL MCH (25-34) pg MCHC (32-36) g/dL RDW Std Deviation (36.4-46.3) fL RDW Coeff of Maira (11.5-14.5) % Plt Count (130-400) K/uL MPV (7.4-10.4) fL Immature Gran % (Auto) % Neut % (Auto) % Lymph % (Auto) % [place] % (Auto) % Eos % (Auto) % Baso % (Auto) % Immature Gran # (Auto) (0.00-0.02) K/uL Neut # (Auto) (1.4-6.5) K/uL Lymph # (Auto) (1.2-3.4) K/uL [place] # (Auto) (0.11-0.59) K/uL Eos # (Auto) (0-0.5) K/uL Baso # (Auto) (0-0.2) K/uL ESR (0-14) mm/hr PT (9.0-12.0) Seconds INR (0.9-1.1) Sodium (136-145) mmol/L Potassium (3.5-5.1) mmol/L Chloride (98-107) mmol/L Carbon Dioxide (21-32) mmol/L Anion Gap (3-11) BUN (7-18) mg/dl Creatinine 0.46 L (0.6-1.4) mg/dl Est Cr Clr Drug Dosing 208.5 ml/min Est GFR ( Amer) 143.3 Est GFR (Non-Af Amer) 123.6 BUN/Creatinine Ratio (10-20) Glucose (70-99) mg/dl POC Glucose 198 H (70-99) Lactate (0.4-2.0) mmol/L Calcium (8.5-10.1) mg/dl Magnesium (1.8-2.4) mg/dl Total Bilirubin (0.2-1) mg/dl AST (15-37) U/L ALT (12-78) U/L Alkaline Phosphatase (45-117) U/L Troponin I (0-0.045) ng/ml C-Reactive Protein Total Protein (6.4-8.2) gm/dl Albumin (3.4-5.0) gm/dl Globulin (2.5-4.0) gm/dl Albumin/Globulin Ratio (0.9-2) Procalcitonin (0-0.5) ng/ml TSH (0.300-4.500) uIu/ml Nasal Screen MRSA (PCR) (Negative) Vancomycin Trough (See Comment) mcg/ml Blood Type Antibody Screen 07/16/19 07/16/19 07/16/19 Range/Units 08:21 09:07 09:07 WBC 6.91 (4.8-10.8) K/uL RBC 3.89 L (4.7-6.1) M/uL Hgb 12.7 L (14.0-18.0) g/dL Hct 37.3 L (42-52) % MCV 95.9 (80-100) fL MCH 32.6 (25-34) pg MCHC 34.0 (32-36) g/dL RDW Std Deviation 50.8 H (36.4-46.3) fL RDW Coeff of Maira 14.4 (11.5-14.5) % Plt Count 240 (130-400) K/uL MPV 8.5 (7.4-10.4) fL Immature Gran % (Auto) 0.4 % Neut % (Auto) 62.0 % Lymph % (Auto) 26.8 % [place] % (Auto) 8.0 % Eos % (Auto) 2.2 % Baso % (Auto) 0.6 % Immature Gran # (Auto) 0.03 H (0.00-0.02) K/uL Neut # (Auto) 4.29 (1.4-6.5) K/uL Lymph # (Auto) 1.85 (1.2-3.4) K/uL [place] # (Auto) 0.55 (0.11-0.59) K/uL Eos # (Auto) 0.15 (0-0.5) K/uL Baso # (Auto) 0.04 (0-0.2) K/uL ESR (0-14) mm/hr PT (9.0-12.0) Seconds INR (0.9-1.1) Sodium 140 (136-145) mmol/L Potassium 3.7 (3.5-5.1) mmol/L Chloride 107 (98-107) mmol/L Carbon Dioxide 27 (21-32) mmol/L Anion Gap 6.0 (3-11) BUN 8 (7-18) mg/dl Creatinine 0.46 L (0.6-1.4) mg/dl Est Cr Clr Drug Dosing 208.5 ml/min Est GFR ( Amer) 143.3 Est GFR (Non-Af Amer) 123.6 BUN/Creatinine Ratio 17.8 (10-20) Glucose 172 H (70-99) mg/dl POC Glucose 141 H (70-99) Lactate (0.4-2.0) mmol/L Calcium 8.6 (8.5-10.1) mg/dl Magnesium (1.8-2.4) mg/dl Total Bilirubin 0.4 (0.2-1) mg/dl AST 15 (15-37) U/L ALT 14 (12-78) U/L Alkaline Phosphatase 51 (45-117) U/L Troponin I (0-0.045) ng/ml C-Reactive Protein Total Protein 6.4 (6.4-8.2) gm/dl Albumin 2.7 L (3.4-5.0) gm/dl Globulin 3.7 (2.5-4.0) gm/dl Albumin/Globulin Ratio 0.7 L (0.9-2) Procalcitonin (0-0.5) ng/ml TSH (0.300-4.500) uIu/ml Nasal Screen MRSA (PCR) (Negative) Vancomycin Trough (See Comment) mcg/ml Blood Type Antibody Screen 07/16/19 07/16/19 07/17/19 Range/Units 17:22 20:35 06:54 WBC 6.46 (4.8-10.8) K/uL RBC 4.17 L (4.7-6.1) M/uL Hgb 13.3 L (14.0-18.0) g/dL Hct 40.7 L (42-52) % MCV 97.6 (80-100) fL MCH 31.9 (25-34) pg MCHC 32.7 (32-36) g/dL RDW Std Deviation 51.3 H (36.4-46.3) fL RDW Coeff of Maira 14.4 (11.5-14.5) % Plt Count 264 (130-400) K/uL MPV 8.5 (7.4-10.4) fL Immature Gran % (Auto) 0.6 % Neut % (Auto) 56.1 % Lymph % (Auto) 31.1 % [place] % (Auto) 9.6 % Eos % (Auto) 2.0 % Baso % (Auto) 0.6 % Immature Gran # (Auto) 0.04 H (0.00-0.02) K/uL Neut # (Auto) 3.62 (1.4-6.5) K/uL Lymph # (Auto) 2.01 (1.2-3.4) K/uL [place] # (Auto) 0.62 H (0.11-0.59) K/uL Eos # (Auto) 0.13 (0-0.5) K/uL Baso # (Auto) 0.04 (0-0.2) K/uL ESR (0-14) mm/hr PT (9.0-12.0) Seconds INR (0.9-1.1) Sodium (136-145) mmol/L Potassium (3.5-5.1) mmol/L Chloride (98-107) mmol/L Carbon Dioxide (21-32) mmol/L Anion Gap (3-11) BUN (7-18) mg/dl Creatinine (0.6-1.4) mg/dl Est Cr Clr Drug Dosing ml/min Est GFR ( Amer) Est GFR (Non-Af Amer) BUN/Creatinine Ratio (10-20) Glucose (70-99) mg/dl POC Glucose 166 H (70-99) Lactate (0.4-2.0) mmol/L Calcium (8.5-10.1) mg/dl Magnesium (1.8-2.4) mg/dl Total Bilirubin (0.2-1) mg/dl AST (15-37) U/L ALT (12-78) U/L Alkaline Phosphatase (45-117) U/L Troponin I (0-0.045) ng/ml C-Reactive Protein Total Protein (6.4-8.2) gm/dl Albumin (3.4-5.0) gm/dl Globulin (2.5-4.0) gm/dl Albumin/Globulin Ratio (0.9-2) Procalcitonin (0-0.5) ng/ml TSH (0.300-4.500) uIu/ml Nasal Screen MRSA (PCR) (Negative) Vancomycin Trough 13.0 (See Comment) mcg/ml Blood Type Antibody Screen 07/17/19 07/17/19 07/17/19 Range/Units 06:54 07:25 11:31 WBC (4.8-10.8) K/uL RBC (4.7-6.1) M/uL Hgb (14.0-18.0) g/dL Hct (42-52) % MCV (80-100) fL MCH (25-34) pg MCHC (32-36) g/dL RDW Std Deviation (36.4-46.3) fL RDW Coeff of Maira (11.5-14.5) % Plt Count (130-400) K/uL MPV (7.4-10.4) fL Immature Gran % (Auto) % Neut % (Auto) % Lymph % (Auto) % [place] % (Auto) % Eos % (Auto) % Baso % (Auto) % Immature Gran # (Auto) (0.00-0.02) K/uL Neut # (Auto) (1.4-6.5) K/uL Lymph # (Auto) (1.2-3.4) K/uL [place] # (Auto) (0.11-0.59) K/uL Eos # (Auto) (0-0.5) K/uL Baso # (Auto) (0-0.2) K/uL ESR (0-14) mm/hr PT (9.0-12.0) Seconds INR (0.9-1.1) Sodium (136-145) mmol/L Potassium (3.5-5.1) mmol/L Chloride (98-107) mmol/L Carbon Dioxide (21-32) mmol/L Anion Gap (3-11) BUN (7-18) mg/dl Creatinine 0.54 L (0.6-1.4) mg/dl Est Cr Clr Drug Dosing 175.5 ml/min Est GFR ( Amer) 134.1 Est GFR (Non-Af Amer) 115.7 BUN/Creatinine Ratio (10-20) Glucose (70-99) mg/dl POC Glucose 135 H 217 H (70-99) Lactate (0.4-2.0) mmol/L Calcium (8.5-10.1) mg/dl Magnesium (1.8-2.4) mg/dl Total Bilirubin (0.2-1) mg/dl AST (15-37) U/L ALT (12-78) U/L Alkaline Phosphatase (45-117) U/L Troponin I (0-0.045) ng/ml C-Reactive Protein Total Protein (6.4-8.2) gm/dl Albumin (3.4-5.0) gm/dl Globulin (2.5-4.0) gm/dl Albumin/Globulin Ratio (0.9-2) Procalcitonin (0-0.5) ng/ml TSH (0.300-4.500) uIu/ml Nasal Screen MRSA (PCR) (Negative) Vancomycin Trough (See Comment) mcg/ml Blood Type Antibody Screen 07/17/19 07/17/19 07/17/19 Range/Units 16:01 17:25 20:29 WBC (4.8-10.8) K/uL RBC (4.7-6.1) M/uL Hgb (14.0-18.0) g/dL Hct (42-52) % MCV (80-100) fL MCH (25-34) pg MCHC (32-36) g/dL RDW Std Deviation (36.4-46.3) fL RDW Coeff of Maira (11.5-14.5) % Plt Count (130-400) K/uL MPV (7.4-10.4) fL Immature Gran % (Auto) % Neut % (Auto) % Lymph % (Auto) % [place] % (Auto) % Eos % (Auto) % Baso % (Auto) % Immature Gran # (Auto) (0.00-0.02) K/uL Neut # (Auto) (1.4-6.5) K/uL Lymph # (Auto) (1.2-3.4) K/uL [place] # (Auto) (0.11-0.59) K/uL Eos # (Auto) (0-0.5) K/uL Baso # (Auto) (0-0.2) K/uL ESR (0-14) mm/hr PT (9.0-12.0) Seconds INR (0.9-1.1) Sodium (136-145) mmol/L Potassium (3.5-5.1) mmol/L Chloride (98-107) mmol/L Carbon Dioxide (21-32) mmol/L Anion Gap (3-11) BUN (7-18) mg/dl Creatinine (0.6-1.4) mg/dl Est Cr Clr Drug Dosing ml/min Est GFR ( Amer) Est GFR (Non-Af Amer) BUN/Creatinine Ratio (10-20) Glucose (70-99) mg/dl POC Glucose 218 H 181 H (70-99) Lactate (0.4-2.0) mmol/L Calcium (8.5-10.1) mg/dl Magnesium (1.8-2.4) mg/dl Total Bilirubin (0.2-1) mg/dl AST (15-37) U/L ALT (12-78) U/L Alkaline Phosphatase (45-117) U/L Troponin I (0-0.045) ng/ml C-Reactive Protein Total Protein (6.4-8.2) gm/dl Albumin (3.4-5.0) gm/dl Globulin (2.5-4.0) gm/dl Albumin/Globulin Ratio (0.9-2) Procalcitonin (0-0.5) ng/ml TSH (0.300-4.500) uIu/ml Nasal Screen MRSA (PCR) (Negative) Vancomycin Trough 13.8 (See Comment) mcg/ml Blood Type Antibody Screen 07/18/19 07/18/19 07/18/19 Range/Units 06:24 07:29 11:15 WBC (4.8-10.8) K/uL RBC (4.7-6.1) M/uL Hgb (14.0-18.0) g/dL Hct (42-52) % MCV (80-100) fL MCH (25-34) pg MCHC (32-36) g/dL RDW Std Deviation (36.4-46.3) fL RDW Coeff of Maira (11.5-14.5) % Plt Count (130-400) K/uL MPV (7.4-10.4) fL Immature Gran % (Auto) % Neut % (Auto) % Lymph % (Auto) % [place] % (Auto) % Eos % (Auto) % Baso % (Auto) % Immature Gran # (Auto) (0.00-0.02) K/uL Neut # (Auto) (1.4-6.5) K/uL Lymph # (Auto) (1.2-3.4) K/uL [place] # (Auto) (0.11-0.59) K/uL Eos # (Auto) (0-0.5) K/uL Baso # (Auto) (0-0.2) K/uL ESR (0-14) mm/hr PT (9.0-12.0) Seconds INR (0.9-1.1) Sodium (136-145) mmol/L Potassium (3.5-5.1) mmol/L Chloride (98-107) mmol/L Carbon Dioxide (21-32) mmol/L Anion Gap (3-11) BUN (7-18) mg/dl Creatinine 0.61 (0.6-1.4) mg/dl Est Cr Clr Drug Dosing 154.2 ml/min Est GFR ( Amer) 127.6 Est GFR (Non-Af Amer) 110.1 BUN/Creatinine Ratio (10-20) Glucose (70-99) mg/dl POC Glucose 139 H 222 H (70-99) Lactate (0.4-2.0) mmol/L Calcium (8.5-10.1) mg/dl Magnesium (1.8-2.4) mg/dl Total Bilirubin (0.2-1) mg/dl AST (15-37) U/L ALT (12-78) U/L Alkaline Phosphatase (45-117) U/L Troponin I (0-0.045) ng/ml C-Reactive Protein Total Protein (6.4-8.2) gm/dl Albumin (3.4-5.0) gm/dl Globulin (2.5-4.0) gm/dl Albumin/Globulin Ratio (0.9-2) Procalcitonin (0-0.5) ng/ml TSH (0.300-4.500) uIu/ml Nasal Screen MRSA (PCR) (Negative) Vancomycin Trough (See Comment) mcg/ml Blood Type Antibody Screen 07/18/19 07/18/19 07/18/19 Range/Units 13:25 16:45 20:32 WBC (4.8-10.8) K/uL RBC (4.7-6.1) M/uL Hgb (14.0-18.0) g/dL Hct (42-52) % MCV (80-100) fL MCH (25-34) pg MCHC (32-36) g/dL RDW Std Deviation (36.4-46.3) fL RDW Coeff of Maira (11.5-14.5) % Plt Count (130-400) K/uL MPV (7.4-10.4) fL Immature Gran % (Auto) % Neut % (Auto) % Lymph % (Auto) % [place] % (Auto) % Eos % (Auto) % Baso % (Auto) % Immature Gran # (Auto) (0.00-0.02) K/uL Neut # (Auto) (1.4-6.5) K/uL Lymph # (Auto) (1.2-3.4) K/uL [place] # (Auto) (0.11-0.59) K/uL Eos # (Auto) (0-0.5) K/uL Baso # (Auto) (0-0.2) K/uL ESR (0-14) mm/hr PT (9.0-12.0) Seconds INR (0.9-1.1) Sodium (136-145) mmol/L Potassium (3.5-5.1) mmol/L Chloride (98-107) mmol/L Carbon Dioxide (21-32) mmol/L Anion Gap (3-11) BUN (7-18) mg/dl Creatinine (0.6-1.4) mg/dl Est Cr Clr Drug Dosing ml/min Est GFR ( Amer) Est GFR (Non-Af Amer) BUN/Creatinine Ratio (10-20) Glucose (70-99) mg/dl POC Glucose 200 H 244 H (70-99) Lactate (0.4-2.0) mmol/L Calcium (8.5-10.1) mg/dl Magnesium (1.8-2.4) mg/dl Total Bilirubin (0.2-1) mg/dl AST (15-37) U/L ALT (12-78) U/L Alkaline Phosphatase (45-117) U/L Troponin I (0-0.045) ng/ml C-Reactive Protein Total Protein (6.4-8.2) gm/dl Albumin (3.4-5.0) gm/dl Globulin (2.5-4.0) gm/dl Albumin/Globulin Ratio (0.9-2) Procalcitonin (0-0.5) ng/ml TSH (0.300-4.500) uIu/ml Nasal Screen MRSA (PCR) (Negative) Vancomycin Trough 18.0 (See Comment) mcg/ml Blood Type Antibody Screen 07/19/19 07/19/19 07/19/19 Range/Units 07:23 09:57 11:27 WBC (4.8-10.8) K/uL RBC (4.7-6.1) M/uL Hgb (14.0-18.0) g/dL Hct (42-52) % MCV (80-100) fL MCH (25-34) pg MCHC (32-36) g/dL RDW Std Deviation (36.4-46.3) fL RDW Coeff of Maira (11.5-14.5) % Plt Count (130-400) K/uL MPV (7.4-10.4) fL Immature Gran % (Auto) % Neut % (Auto) % Lymph % (Auto) % [place] % (Auto) % Eos % (Auto) % Baso % (Auto) % Immature Gran # (Auto) (0.00-0.02) K/uL Neut # (Auto) (1.4-6.5) K/uL Lymph # (Auto) (1.2-3.4) K/uL [place] # (Auto) (0.11-0.59) K/uL Eos # (Auto) (0-0.5) K/uL Baso # (Auto) (0-0.2) K/uL ESR (0-14) mm/hr PT (9.0-12.0) Seconds INR (0.9-1.1) Sodium (136-145) mmol/L Potassium (3.5-5.1) mmol/L Chloride (98-107) mmol/L Carbon Dioxide (21-32) mmol/L Anion Gap (3-11) BUN (7-18) mg/dl Creatinine 0.71 (0.6-1.4) mg/dl Est Cr Clr Drug Dosing 132.7 ml/min Est GFR ( Amer) 119.9 Est GFR (Non-Af Amer) 103.4 BUN/Creatinine Ratio (10-20) Glucose (70-99) mg/dl POC Glucose 174 H 241 H (70-99) Lactate (0.4-2.0) mmol/L Calcium (8.5-10.1) mg/dl Magnesium (1.8-2.4) mg/dl Total Bilirubin (0.2-1) mg/dl AST (15-37) U/L ALT (12-78) U/L Alkaline Phosphatase (45-117) U/L Troponin I (0-0.045) ng/ml C-Reactive Protein Total Protein (6.4-8.2) gm/dl Albumin (3.4-5.0) gm/dl Globulin (2.5-4.0) gm/dl Albumin/Globulin Ratio (0.9-2) Procalcitonin (0-0.5) ng/ml TSH (0.300-4.500) uIu/ml Nasal Screen MRSA (PCR) (Negative) Vancomycin Trough (See Comment) mcg/ml Blood Type Antibody Screen 07/19/19 Range/Units 16:20 WBC (4.8-10.8) K/uL RBC (4.7-6.1) M/uL Hgb (14.0-18.0) g/dL Hct (42-52) % MCV (80-100) fL MCH (25-34) pg MCHC (32-36) g/dL RDW Std Deviation (36.4-46.3) fL RDW Coeff of Maira (11.5-14.5) % Plt Count (130-400) K/uL MPV (7.4-10.4) fL Immature Gran % (Auto) % Neut % (Auto) % Lymph % (Auto) % [place] % (Auto) % Eos % (Auto) % Baso % (Auto) % Immature Gran # (Auto) (0.00-0.02) K/uL Neut # (Auto) (1.4-6.5) K/uL Lymph # (Auto) (1.2-3.4) K/uL [place] # (Auto) (0.11-0.59) K/uL Eos # (Auto) (0-0.5) K/uL Baso # (Auto) (0-0.2) K/uL ESR (0-14) mm/hr PT (9.0-12.0) Seconds INR (0.9-1.1) Sodium (136-145) mmol/L Potassium (3.5-5.1) mmol/L Chloride (98-107) mmol/L Carbon Dioxide (21-32) mmol/L Anion Gap (3-11) BUN (7-18) mg/dl Creatinine (0.6-1.4) mg/dl Est Cr Clr Drug Dosing ml/min Est GFR ( Amer) Est GFR (Non-Af Amer) BUN/Creatinine Ratio (10-20) Glucose (70-99) mg/dl POC Glucose 219 H (70-99) Lactate (0.4-2.0) mmol/L Calcium (8.5-10.1) mg/dl Magnesium (1.8-2.4) mg/dl Total Bilirubin (0.2-1) mg/dl AST (15-37) U/L ALT (12-78) U/L Alkaline Phosphatase (45-117) U/L Troponin I (0-0.045) ng/ml C-Reactive Protein Total Protein (6.4-8.2) gm/dl Albumin (3.4-5.0) gm/dl Globulin (2.5-4.0) gm/dl Albumin/Globulin Ratio (0.9-2) Procalcitonin (0-0.5) ng/ml TSH (0.300-4.500) uIu/ml Nasal Screen MRSA (PCR) (Negative) Vancomycin Trough (See Comment) mcg/ml Blood Type Antibody Screen Diagnostic Findings XR chest 1V portable CLINICAL HISTORY: Hypoxia/fever COMPARISON STUDY: 07/12/2019 FINDINGS: The chest has an emphysematous configuration. There is no failure. There is no lobar consolidation. Surgical clips project over the upper left axillary region. There are linear parenchymal opacities in the right upper lung zone, likely atelectatic. There are no pleural effusions.[ IMPRESSION: Interval development of linear right perihilar and upper lung zone opacities, likely atelectatic. No evidence of lobar consolidation Electronically signed by: Michael Navarro M.D. 07/14/2019 4:52 PM Dictated: [id number]/14/[id number] Transcribed: 07/14/191649 CT ANGIOGRAPHY OF THE LEFT LOWER EXTREMITY CLINICAL HISTORY: bypass graft in groin, bleeding--with only COMPARISON STUDY: CTA, including runoff April 21, 2019. TECHNIQUE: Axial images from the aortic bifurcation through the left foot were obtained following intravenous injection of 117 cc Optiray 320 IV. Sagittal and coronal reconstructed reviewed as well as maximal intensity projections on an independent 3-D workstation. Automated exposure control was utilized for the study. A dose lowering technique was utilized adhering to the principles of ALARA. FINDINGS: The bladder is distended. Right hip arthroplasty is noted. Caliber and wall thickness of visualized small and large bowel are normal. Left common iliac artery stent is patent. There is severe stenosis of the left external iliac artery as well as the left common femoral artery which is unchanged. There is severe stenosis at the origin of the left profunda. Left SFA stent is occluded as before. A left axillary bifemoral bypass graft is partially imaged. As before, the [place] right superficial femoral artery is occluded. The right profunda is patent. Visualized portions are patent. Interval left profunda bypass is noted. Gas within the left groin is noted. There are multiple fluid collections which measure up to 4.1 cm. These favor hematomas. No pseudoaneurysm is identified. There is moderate narrowing of the left profunda graft and equivocal minimal thrombus within the distal aspect of the graft. Reconstitution at the level of the left popliteal artery is again noted. Severe stenosis of the left popliteal artery is noted. There is stenosis at the origin of the left posterior tibial artery which is otherwise patent. This is patent the level of the left foot. Severe stenoses within the left anterior tibial artery are noted with several sites of suspected occlusion and reconstitution. Severe stenosis at origin of the left peroneal artery is noted. IMPRESSION: 1. Status post interval left groin profunda bypass. Graft narrowed but patent. Apparent small filling defect within the distal aspect of the bypass graft. Artifact is favored however a small intraluminal thrombus could appear similar. No pseudoaneurysm. Several left groin fluid collections which favor hematomas. Moderate gas within the left groin may be due to the open wound. A superimposed infection is considered less likely but could appear similar. 2. Visualized portions of left axillobifemoral bypass graft patent. Redemonstration of stenosis at origin of the left profunda. Occluded left SFA stent with reconstitution at the level of the left popliteal artery with stenoses within the left popliteal artery and left calf vessels with left foot largely supplied through the posterior tibial artery. Electronically signed by: Florian Main M.D. 07/12/2019 4:31 PM Dictated: 07/12/19 1606 Transcribed: 07/12/19 1606 PG Care Time/CCT Total # of Minutes Spent Total Time Spent with Patient: Total time spent is greater than 50% in coordination of care (as documented) at patient's floor/unit and/or counseling patient: (1) Streptococcal sepsis Sepsis acute organ dysfunction status: unspecified Qualified Code(s): A40.9 - Streptococcal sepsis, unspecified (2) Diabetes Diabetes mellitus complication detail: with polyneuropathy Diabetes mellitus complication status: with neurologic complications Diabetes mellitus senior care insulin use: with manager forensic use Diabetes mellitus type: type 2 Qualified Code(s): E11.42 - Type 2 diabetes mellitus with diabetic polyneuropathy; Z79.4 - jail (current) use of insulin (3) COPD (chronic obstructive pulmonary disease) COPD type: unspecified COPD Qualified Code(s): J44.9 - Chronic obstructive pulmonary disease, unspecified (4) Hypertension Hypertension type: essential hypertension Qualified Code(s): I10 - Essential (primary) hypertension
--- NOTE | 2019-07-19 21:07 | Infectious Disease Progress Nt ---
Date of Service July 19, 2019 Assessment & Plan (1) Streptococcal sepsis: Patient with streptococcal sepsis, with positive wound culture for MRSA as well. Patient to continue on current antibiotics pending graft removal tomorrow. Length of IV antibiotics yet to be determined. Will follow. Subjective Seen in follow-up for streptococcal sepsis and infected graft. Appears comfortable, offers no new complaints. For graft removal tomorrow. Tolerating antibiotics without apparent difficulty. Groin culture has grown MRSA. Review of Systems Review of Systems: All systems reviewed & are unremarkable except as noted in HPI & below Physical Exam Constitutional: WD/WN, vitals as above comfortable; no acute distress Eyes: PERRL, conjunctivae normal, anicteric sclerae ENMT: external ear and nose normal, oropharynx normal Neck: trachea midline, no thyromegaly neck nontender Respiratory: normal respiratory effort, lungs clear to auscultation normal percussion; does not use accessory muscles Cardiovascular: Rate/Rhythm: regular rate and regular rhythm Heart Sounds: normal S1 and normal S2; no gallop, no murmur and no cardiac rub Vessels: normal peripheral pulses; no JVD Gastrointestinal (Abdomen): normal bowel sounds, soft, nontender, no hepatosplenomegaly Musculoskeletal: no cyanosis or clubbing, extremities motor strength 5/5 Spine: thoracic spine normal to inspection and lumbar spine normal to inspection; no cervical spinal tenderness Skin: no rashes, warm and dry normal turgor and + wound (Dressing intact left groin) Neurologic: patellar DTR's 2+ bilat, sensation intact no focal motor deficits Psychiatric: A+Ox3, euthymic affect Orientation: cooperative Lymphatic: no cervical or axillary lymphadenopathy no inguinal lymphadenopathy Results & Data Vital Signs (Past 12 Hours) Vital Signs Temp Pulse Pulse Resp BP Pulse Ox 07/19/19 19:53 36.6 C 80 20 121/64 92 07/19/19 19:24 88 17 91 07/19/19 16:00 90 07/19/19 15:40 37.0 C 78 19 138/66 92 07/19/19 13:27 74 16 90 07/19/19 11:51 36.9 C 71 20 119/63 91 Laboratory Results BMP 07/19/19 09:57 Creatinine 0.71 Medications Administered Microbiology 07/14/19 13:41 Thigh,Left Gram Stain - Final 07/14/19 13:41 Thigh,Left Aerobic and Anaerobic Culture - Preliminary Group B Beta Strep Any arandaa 07/17/19 07:10 Blood Aerobic Blood Culture - Preliminary No growth in Aerobic bottle after 48 hours. 07/17/19 07:10 Blood Anaerobic Blood Culture - Preliminary No growth in Anaerobic bottle after 48 hours. 07/17/19 06:54 Blood Aerobic Blood Culture - Preliminary No growth in Aerobic bottle after 48 hours. 07/17/19 06:54 Blood Anaerobic Blood Culture - Preliminary No growth in Anaerobic bottle after 48 hours. 07/15/19 12:28 Leg Gram Stain - Final 07/15/19 12:28 Leg Wound Culture - Final Staph aureus MRSA 07/14/19 15:44 Blood Aerobic Blood Culture - Final Group B Beta Strep 07/14/19 15:44 Blood Anaerobic Blood Culture - Final Group B Beta Strep 07/14/19 16:31 Blood Aerobic Blood Culture - Preliminary No growth in Aerobic bottle after 48 hours. 07/14/19 16:31 Blood Anaerobic Blood Culture - Preliminary Group B Beta Strep XR chest 1V portable CLINICAL HISTORY: Hypoxia/fever COMPARISON STUDY: 07/12/2019 FINDINGS: The chest has an emphysematous configuration. There is no failure. There is no lobar consolidation. Surgical clips project over the upper left axillary region. There are linear parenchymal opacities in the right upper lung zone, likely atelectatic. There are no pleural effusions.[ IMPRESSION: Interval development of linear right perihilar and upper lung zone opacities, likely atelectatic. No evidence of lobar consolidation Electronically signed by: Michael Navarro M.D. 07/14/2019 4:52 PM Dictated: 07/14/19 1650 PG Care Time/CCT Total # of Minutes Spent Total Time Spent with Patient: Total time spent is greater than 50% in coordination of care (as documented) at patient's floor/unit and/or counseling patient: (1) Streptococcal sepsis Sepsis acute organ dysfunction status: unspecified Qualified Code(s): A40.9 - Streptococcal sepsis, unspecified
[2019-07-19] MEDS: INSULIN GLARGINE SOLOSTAR 100 UNITS/ML 3 ML PEN SC SCH (22:08)
[2019-07-19] MEDS: INSULIN ASPART 100 UNITS/ML 3 ML PEN SC SCH (22:08)
[2019-07-20] MEDS: ALBUT/IPRATROP 3MG/0.5MG NEB 3 ML VIAL NEB SCH ×3 (00:11→13:11)
[2019-07-20] MEDS ORDERED: VANCOMYCIN TROUGH ONE (05:30)
[2019-07-20] MEDS: VANCOMYCIN HCL 2,000 MG in SODIUM CHLORIDE 0.9% 500 ML IV SCH ×2 (05:58→15:43)
[2019-07-20] MEDS: HYDROCODONE/ACETAMINOPHEN 10/325 TAB PO PRN (08:20)
[2019-07-20] MEDS: DOCUSATE SODIUM 100 MG CAP PO SCH ×2 (08:22→20:34)
[2019-07-20] MEDS: ASPIRIN 325 MG ECTAB PO SCH (08:22)
[2019-07-20] MEDS: lisinopriL 40 MG TAB PO SCH (08:22)
[2019-07-20] MEDS: GABAPENTIN 800 MG TAB PO SCH ×3 (08:22→20:34)
--- NOTE | 2019-07-20 08:23 | Pharmacy Report ---
Pharmacy Abx Dose Short Note - Date of Service July 20, 2019 - Assessment & Plan Assessment 59 year old M receiving vancomycin for treatment of group B beta strep bacteremia and groin infection in addition to MRSA wound infection. Day # 7 of antimicrobial therapy. Plan Vancomycin * Trough level came back therapeutic at 19.3 mcg/ml (goal 15-20 mcg/ml for bacteremia/ideally closer to ~20 mcg/ml) * Will continue current vancomycin regimen of vancomycin 2000 mg iv q 10 hrs * Repeat blood cultures on 07/17 are no growth - ID following patient * Will plan to collect repeat trough in next 2-3 days or sooner if renal function changes, no Scr checked today however has remained stable days prior Pharmacy will continue to follow and will adjust dose/frequency as necessary. Thank you.
[2019-07-20] MEDS: INSULIN ASPART 100 UNITS/ML 3 ML PEN SC SCH ×4 (08:24→22:12)
[2019-07-20] MEDS: INSULIN GLARGINE SOLOSTAR 100 UNITS/ML 3 ML PEN SC SCH ×2 (08:25→22:11)
[2019-07-20] MEDS ORDERED: SODIUM CHLORIDE 0.9% 250 ML IV PRN (12:48)
--- NOTE | 2019-07-20 15:45 | Surgery Progress Note ---
Date of Service July 20, 2019 Assessment & Plan (1) Streptococcal sepsis: Pt with infected L groin bypass and sepsis. At this point our plan is to remove the infected graft tomorrow and if needed to replace it with a extra anatomical bovine graft. This was discussed with the patient, he is agreeable. Subjective 59 yo m with infected L groin fem-profunda BPG and sepsis, seen in f/u today. Pt states feeling overall improved. IS anxious abour surgery tomorrow. No new complaints. Physical Exam Constitutional: WD/WN, vitals as above + ill appearing (chronically); no acute distress Respiratory: normal respiratory effort, lungs clear to auscultation Cardiovascular: Rate/Rhythm: regular rate and regular rhythm Vessels: + abnormal peripheral pulses (dopplerable) Gastrointestinal (Abdomen): Inspection/Auscultation: abdomen normal to inspection and normal bowel sounds Percussion/Palpation: abdomen nontender Musculoskeletal: Extremities: strength 5/5 throughout Skin: + wound (L groin incision intact, copious serosan drainage noted. soft tender) Psychiatric: Orientation: alert and oriented x 3 Affect: + anxious affect, + irritable affect and + angry affect Results & Data Vital Signs (Past 12 Hours) Vital Signs Temp Pulse Pulse Resp BP Pulse Ox 07/20/19 13:12 80 18 94 07/20/19 11:18 36.6 C 83 20 111/65 94 07/20/19 08:00 77 07/20/19 07:24 36.3 C L 82 22 120/68 92 07/20/19 03:47 36.6 C 76 20 116/66 93 (1) Streptococcal sepsis Sepsis acute organ dysfunction status: unspecified Qualified Code(s): A40.9 - Streptococcal sepsis, unspecified
[2019-07-20] MEDS: IPRATROPIUM BROMIDE/ALBUTEROL respimat INH INH SCH ×2 (16:58→20:34)
--- NOTE | 2019-07-20 21:17 | Infectious Disease Progress Nt ---
Date of Service July 20, 2019 Assessment & Plan (1) Streptococcal sepsis: Patient with streptococcal sepsis, with positive wound culture for MRSA as well. Patient to continue on current antibiotics pending graft removal tomorrow. Length of IV antibiotics yet to be determined. Will follow. Subjective Seen in follow-up for streptococcal sepsis and infected graft. Appears comfortable, offers no new complaints. For graft removal tomorrow. Tolerating antibiotics without apparent difficulty. Groin culture has grown MRSA. Review of Systems Review of Systems: All systems reviewed & are unremarkable except as noted in HPI & below Physical Exam Constitutional: WD/WN, vitals as above comfortable; no acute distress Eyes: PERRL, conjunctivae normal, anicteric sclerae ENMT: external ear and nose normal, oropharynx normal Neck: trachea midline, no thyromegaly neck nontender Respiratory: normal respiratory effort, lungs clear to auscultation normal percussion; does not use accessory muscles Cardiovascular: Rate/Rhythm: regular rate and regular rhythm Heart Sounds: normal S1 and normal S2; no gallop, no murmur and no cardiac rub Vessels: normal peripheral pulses; no JVD Gastrointestinal (Abdomen): normal bowel sounds, soft, nontender, no hepatosplenomegaly Musculoskeletal: no cyanosis or clubbing, extremities motor strength 5/5 Spine: thoracic spine normal to inspection and lumbar spine normal to inspection; no cervical spinal tenderness Skin: no rashes, warm and dry normal turgor and + wound (Dressing intact left groin) Neurologic: patellar DTR's 2+ bilat, sensation intact no focal motor deficits Psychiatric: A+Ox3, euthymic affect Orientation: cooperative Lymphatic: no cervical or axillary lymphadenopathy no inguinal lymphadenopathy Results & Data Vital Signs (Past 12 Hours) Vital Signs Temp Pulse Pulse Resp BP Pulse Ox 07/20/19 19:27 36.8 C 71 22 154/76 H 95 07/20/19 16:00 83 07/20/19 15:54 36.6 C 71 22 139/74 95 07/20/19 13:12 80 18 94 07/20/19 11:18 36.6 C 83 20 111/65 94 Laboratory Results Laboratory Results - last 48 hr 07/19/19 07/19/19 07/19/19 07:23 09:57 11:27 Creatinine 0.71 Est Cr Clr Drug Dosing 132.7 Est GFR ( Amer) 119.9 Est GFR (Non-Af Amer) 103.4 POC Glucose 174 H 241 H Vancomycin Trough 07/19/19 07/19/19 07/20/19 16:20 21:33 05:39 Creatinine Est Cr Clr Drug Dosing Est GFR ( Amer) Est GFR (Non-Af Amer) POC Glucose 219 H 277 H Vancomycin Trough 19.3 07/20/19 07/20/19 07/20/19 07:22 11:19 16:12 Creatinine Est Cr Clr Drug Dosing Est GFR ( Amer) Est GFR (Non-Af Amer) POC Glucose 146 H 175 H 170 H Vancomycin Trough 07/20/19 20:21 Creatinine Est Cr Clr Drug Dosing Est GFR ( Amer) Est GFR (Non-Af Amer) POC Glucose 160 H Vancomycin Trough Diagnostic Findings Microbiology 07/14/19 16:31 Blood Aerobic Blood Culture - Final No growth in Aerobic bottle after 5 days. 07/14/19 16:31 Blood Anaerobic Blood Culture - Final Group B Beta Strep 07/14/19 13:41 Thigh,Left Gram Stain - Final 07/14/19 13:41 Thigh,Left Aerobic and Anaerobic Culture - Final Group B Beta Strep Finegoldia magna Anaerococcus prevotii 07/17/19 07:10 Blood Aerobic Blood Culture - Preliminary No growth in Aerobic bottle after 48 hours. 07/17/19 07:10 Blood Anaerobic Blood Culture - Preliminary No growth in Anaerobic bottle after 48 hours. 07/17/19 06:54 Blood Aerobic Blood Culture - Preliminary No growth in Aerobic bottle after 48 hours. 07/17/19 06:54 Blood Anaerobic Blood Culture - Preliminary No growth in Anaerobic bottle after 48 hours. 07/15/19 12:28 Leg Gram Stain - Final 07/15/19 12:28 Leg Wound Culture - Final Staph aureus MRSA 07/14/19 15:44 Blood Aerobic Blood Culture - Final Group B Beta Strep 07/14/19 15:44 Blood Anaerobic Blood Culture - Final Group B Beta Strep PG Care Time/CCT Total # of Minutes Spent Total Time Spent with Patient: Total time spent is greater than 50% in c oordination of care (as documented) at patient's floor/unit and/or counseling patient: (1) Streptococcal sepsis Sepsis acute organ dysfunction status: unspecified Qualified Code(s): A40.9 - Streptococcal sepsis, unspecified
[2019-07-21] MEDS ORDERED: ZOLPIDEM TARTRATE 5 MG TAB PO PRN
[2019-07-21] MEDS: VANCOMYCIN HCL 2,000 MG in SODIUM CHLORIDE 0.9% 500 ML IV SCH ×2 (03:16→13:30)
[2019-07-21 06:01] LABS: Basophils # (auto) 0.04 K/uL (0-0.2); Basophils % (auto) 0.6 %; Eosinophils # (auto) 0.11 K/uL (0-0.5); Eosinophils % (auto) 1.7 %; Hemoglobin 12.9 g/dL (14.0-18.0); Immature Granulocytes # (auto) 0.03 K/uL (0.00-0.02); Immature Granulocytes % (auto) 0.5 %; Lymphocytes # (auto) 2.35 K/uL (1.2-3.4); Mean Corpuscular Hemoglobin 32.7 pg (25-34); Mean Corpuscular Hgb Conc 33.9 g/dL (32-36); Mean Corpuscular Volume 96.4 fL (80-100); Mean Platelet Volume 8.3 fL (7.4-10.4); Monocytes # (auto) 0.47 K/uL (0.11-0.59); Monocytes % (auto) 7.2 %; Neutrophils # (auto) 3.52 K/uL (1.4-6.5); Platelet Count 271 K/uL (130-400); RDW Coefficient of Variation 14.4 % (11.5-14.5); RDW Standard Deviation 50.5 fL (36.4-46.3); Red Blood Count 3.94 M/uL (4.7-6.1); White Blood Count 6.52 K/uL (4.8-10.8)
[2019-07-21 06:34] LABS: Creatinine Clr Calc Pharmacy 139.2 ml/min; Est GFR (Non-African American) 105.3
[2019-07-21] MEDS ORDERED: PROPOFOL IV EMULSION 10 MG/ML 20 ML VIAL IV ONE ×2 (07:42→21:42)
[2019-07-21] MEDS ORDERED: ONDANSETRON INJ 2 MG/ML 2 ML VIAL ONE (07:42)
[2019-07-21] MEDS ORDERED: ROCURONIUM BROMIDE 10 MG/ML 5 ML VIAL ONE ×8 (07:42→15:08)
[2019-07-21] MEDS ORDERED: DEXAMETHASONE SOD INJ 4 MG/ML VIAL ONE (07:42)
[2019-07-21] MEDS ORDERED: NEOSTIGMINE METHYLSULFATE 5 MG/5 ML SYR ONE (07:42)
[2019-07-21] MEDS ORDERED: fentaNYL citrate 100 MCG/2 ML VIAL ONE ×3 (07:42→15:28)
[2019-07-21] MEDS ORDERED: LIDOCAINE HCL 2% 2 ML VIAL/AMP(20MG/ML) INFIL ONE (07:42)
[2019-07-21] MEDS ORDERED: GLYCOPYRROLATE 0.2 MG/ML VIAL ONE (07:42)
[2019-07-21] MEDS ORDERED: MIDAZOLAM HCL 1 MG/ML 2ML VIAL ONE ×2 (07:42→20:28)
[2019-07-21] MEDS ORDERED: ALBUMIN HUMAN 5% 12.5 GM/250 ML VIAL IV ONE ×2 (07:44→16:39)
--- NOTE | 2019-07-21 09:08 | History & Physical Bridge Note ---
Date of Service July 21, 2019 History & Physical Bridge Note Patient for removal of his infected graft with revascularization if needed. I have discussed the risks options and benefits of the procedure with the patient. The patient understands the risks options and benefits and agrees to the procedure. I have examined the patient, reviewed the History & Physical and in the interval since the performance of the History & Physical I have noted the following changes of clinical significance: no changes noted
[2019-07-21] MEDS: INSULIN ASPART 100 UNITS/ML 3 ML PEN SC SCH ×2 (09:24→12:08)
[2019-07-21] MEDS: IPRATROPIUM BROMIDE/ALBUTEROL respimat INH INH SCH ×2 (09:25→18:02)
[2019-07-21] MEDS: lisinopriL 40 MG TAB PO SCH (09:26)
[2019-07-21] MEDS: DOCUSATE SODIUM 100 MG CAP PO SCH (09:26)
[2019-07-21] MEDS: ASPIRIN 325 MG ECTAB PO SCH (09:26)
[2019-07-21] MEDS: GABAPENTIN 800 MG TAB PO SCH ×2 (09:26→18:02)
[2019-07-21] MEDS ORDERED: LABETALOL HCL IV 5 MG/ML 20ML IV PRN ×2 (09:47→12:21)
[2019-07-21] MEDS ORDERED: ATROPINE SULFATE 0.1 MG/ML 10ML SYR IV PRN ×2 (09:47→12:21)
[2019-07-21] MEDS ORDERED: ePHEDrine sulfate 50 MG/ML AMP IV PRN ×2 (09:47→12:21)
[2019-07-21] MEDS ORDERED: fentaNYL citrate 100 MCG/2 ML VIAL IV PRN ×2 (09:47→12:21)
[2019-07-21] MEDS ORDERED: ONDANSETRON INJ 2 MG/ML 2 ML VIAL IV PRN ×2 (09:47→12:21)
--- NOTE | 2019-07-21 11:31 | Family Medicine Consultation ---
Date of Consultation July 21, 2019 History of Present Illness Attending Physician: Denis Alanis MD History of Present Illness 59-year-old male with past medical history of diabetes type 2, COPD, peripheral vascular disease with axillofemoral femoral and recent left femoral to profunda bypass. He was admitted to [facility] on July 13 for exploration of left groin and revision of previous proximal artery anastomosis secondary to bleeding from the left groin and pain. CTA at the time did not show any extravasation. At the time of admission there is no pus noted with the patient did feel tired and lightheaded. Patient did poorly in the immediate postoperative period, he was tachycardic, he received 10 mg of metoprolol and a liter of crystalloid without improvement. He was subsequently transferred to the ICU for further evaluation and management. Blood cultures were ordered and septic work-up was initiated. Blood cultures cultures grew out gram-positive cocci in chains and group B step strep from the left groin. Infectious disease was consulted, the patient was started on vancomycin, further cultures grew out staph species. Patient was determined to have streptococcal sepsis, and MRSA i nfected graft. Allergies Allergy/AdvReac Type Severity Reaction Status Date / Time Penicillins Allergy Severe THROAT Verified 07/12/19 14:30 KEVEN AND KENYETTA Home Medications Home Medications Medication Instructions Recorded Confirmed Type Combivent Respimat 2 puff INHALATION QID 05/01/19 07/12/19 History Jardiance 10 mg PO QAM 05/01/19 07/12/19 History Toujeo SoloStar U-300 Insulin 15 unit SUBCUT QPM 05/01/19 07/12/19 History Trulicity 0.75 mg SUBCUT WK 05/01/19 07/12/19 History albuterol sulfate 2 puff INHALATION QID PRN 05/01/19 07/12/19 History aspirin 325 mg PO QAM 05/01/19 07/12/19 History cilostazol 100 mg PO BID 05/01/19 07/12/19 History gabapentin [Neurontin] 800 mg PO BID 05/01/19 07/12/19 History lisinopril 40 mg PO QAM 05/01/19 07/12/19 History metformin 1,000 mg PO BID 05/01/19 07/12/19 History hydrocodone-acetaminophen 1 tab PO QID PRN 05/30/19 07/12/19 History collagenase clostridium histo. 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 Beliefs That Will Affect Care: None Current Living Situation: Spouse Current Living Situation Comment: only Other Information That Helps Us Care for You: No Feels Safe at Home: Yes Safety Concerns: Feels Safe At This Time Smoking Status: Former smoker Tobacco Type: smokeless tobacco ; Cigarettes Per Day: 16 ; Do You Dip or Chew Tobacco: Yes ; Second Hand Exposure: No ; Tobacco Cessation Education Requested by Patient: No Hx Alcohol Use: No Hx Substance Use: Yes substance use type: marijuana Last Used Substance: Unknown Results & Data Vital Signs (Past 12 Hours) Vital Signs Temp Pulse Resp BP BP Pulse Ox 07/21/19 07:32 37 C 67 20 123/57 L 91 07/21/19 03:20 37.0 C 75 20 130/66 91 07/20/19 23:57 36.7 C 69 20 118/66 94 PG Care Time/CCT Total # of Minutes Spent Total Time Spent with Patient: Total time spent is greater than 50% in coordination of care (as documented) at patient's floor/unit and/or counseling patient:
--- NOTE | 2019-07-21 12:10 | Anesthesiology Consultation ---
Date of Service July 21, 2019 The patient had surgery one week ago. He became very tachycardic and hypotensive on arrival to the PACU. He was subsequently treated and is doing better. The patient is very irritated that he needs to have surgery today. He was consented to have an arterial line and was told of the possibility of going to the ICU intubated after the surgery. He understands the risks and benefits and would like to proceed with the surgery. Assessment & Plan (1) Encounter for pre-operative examination: Chart Review Chart Review: Acceptable Risk for Surgery and Patient NOT seen in Pre Admission Testing Consults Requested none History Surgery Operation Date: 07/14/19 11:30 Proposed Procedures p Left Groin Exploratory - Denis Alanis MD Operation Date: 07/21/19 12:40 Proposed Procedures p Left Removal of Infected Femoral Bypass - Denis Alanis MD Height/Weight Height: 5 ft 11 in Weight: 95.5 kg Allergies Allergy/AdvReac Type Severity Reaction Status Date / Time Penicillins Allergy Severe THROAT Verified 07/12/19 14:30 SWELLS AND HIVES Medications Home Medications Medication Instructions Recorded Confirmed Last Taken Combivent Respimat 2 puff INHALATION QID 05/01/19 07/12/19 06/13/19 20:00 Jardiance 10 mg PO QAM 05/01/19 07/12/19 07/12/19 Toamy Perkins U-300 Insulin 15 unit SUBCUT QPM 05/01/19 07/12/19 07/11/19 Trulicity 0.75 mg SUBCUT WK 05/01/19 07/12/19 07/08/19 albuterol sulfate 2 puff INHALATION QID PRN 05/01/19 07/12/19 06/14/19 04:00 aspirin 325 mg PO QAM 05/01/19 07/12/19 07/12/19 cilostazol 100 mg PO BID 05/01/19 07/12/19 06/13/19 03:30 gabapentin [Neurontin] 800 mg PO BID 05/01/19 07/12/19 07/12/19 lisinopril 40 mg PO QAM 05/01/19 07/12/19 07/12/19 metformin 1,000 mg PO BID 05/01/19 07/12/19 07/12/19 hydrocodone-acetaminophen 1 tab PO QID PRN 05/30/19 07/12/19 07/12/19 collagenase clostridium histo. 250 unit TOPICAL DAILY 07/12/19 07/12/19 Unknown [Santyl] varenicline [Chantix Continuing 1 mg PO DAILY 07/12/19 07/12/19 Unknown Month Box] Active Medications Generic Name Dose Route Start Last Admin Trade Name Freq PRN Reason Stop Dose Admin Hydrocodone Bitart/Acetaminophen 1 tab 07/12/19 15:39 07/20/19 08:20 Jameson 10/325 PO 07/26/19 15:38 1 tab QID PRN Administration Pain Albuterol 2 puffs 07/12/19 21:00 07/21/19 09:25 Combivent Respimat INH 08/11/19 20:59 2 puffs QID RAFA Administration Aspirin 325 mg 07/13/19 09:00 07/21/19 09:26 Ecotrin PO 08/12/19 08:59 Not Given QAM PENDING SALE TO [facility] Docusate Sodium 100 mg 07/18/19 11:15 07/21/19 09:26 Colace PO 08/17/19 11:14 Not Given BID RAFA Gabapentin 800 mg 07/15/19 21:00 07/21/19 09:26 Neurontin PO 08/14/19 20:59 Not Given TID RAFA Vancomycin HCl 2,000 mg/ 540 mls @ 200 mls/hr 07/17/19 18:30 07/21/19 06:10 Sodium Chloride IV 07/27/19 18:29 Infused Q10H PENDING SALE TO [facility] Infusion Protocol Insulin Aspart 0 units 07/19/19 21:00 07/21/19 12:08 Novolog Flexpen SC 08/18/19 20:59 Not Given ACHS RAFA Insulin Glargine 10 units 07/19/19 21:00 07/20/19 22:11 Lantus Solostar Pen SC 08/18/19 20:59 10 units BID RAFA Administration Lisinopril 40 mg 07/13/19 09:00 07/21/19 09:26 Zestril PO 08/12/19 08:59 Not Given QAM RAFA Miscellaneous 1 ea 07/13/19 00:00 07/21/19 09:26 Order Awaiting Action N/A 08/12/19 00:00 Not Given QS RAFA Miscellaneous 1 ea 07/13/19 00:00 07/21/19 09:26 Order Awaiting Action N/A 08/12/19 00:00 Not Given QS RAFA Miscellaneous 1 ea 07/13/19 00:00 07/21/19 09:26 Order Awaiting Action N/A 08/12/19 00:00 Not Given QS RAFA Morphine Sulfate 4 mg 07/14/19 23:02 07/17/19 03:10 Morphine Sulfate IV 07/28/19 23:01 4 mg Q4 PRN Administration Pain Zolpidem Tartrate 5 mg 07/21/19 00:00 07/21/19 00:44 Ambien PO 08/20/19 00:00 5 mg HS PRN Administration Sleep NPO Date Last Intake of Fluids: 07/20/19 Time Last Intake of Fluids: 19:00 Date Last Intake of Solids: 07/20/19 Time Last Intake of Solids: 19:00 Past Medical History Medical History Diverticulitis (Resolved) Arthritis Chronic back pain Chronic obstructive pulmonary disease Diabetes mellitus, type 2 Diabetic neuropathy, type II diabetes mellitus Hypertension SOB (shortness of breath) on exertion Sleep apnea CPAP HS 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 PER PT History of bowel resection WITH COLOSTOMY/REVERSAL LATER History of right hip replacement S/P femoral-popliteal bypass surgery X 2-LEFT LEG Social History Smoking Status: Former smoker tobacco type: smokeless tobacco Smoking cigarettes per day: 16 Do You Dip or Chew Tobacco: Yes Hx Alcohol Use: No Hx Substance Use: Yes substance use type: marijuana Last Used Substance: Unknown Physical Exam Vital Signs Last Vital Signs Temp 36.6 C 07/21/19 12:11 Pulse 71 07/21/19 12:11 Resp 20 07/21/19 12:11 BP 130/70 07/21/19 12:11 Pulse Ox 91 07/21/19 12:11 Constitutional + obese ENMT Mouth: + poor dentition; no TMJ abnormality Thyromental Distance: > or= 3.5 Finger Breadths Mallampati Class: I Neck normal visual inspection Respiratory normal respiratory effort Auscultation: lungs clear to auscultation bilaterally Cardiovascular Rate/Rhythm: regular rate and regular rhythm Musculoskeletal Spine: no pain with cervical ROM Neurologic moves all extremities Psychiatric Orientation: alert and oriented x 3 Testing Laboratory Results 07/21/19 05:30 07/21/19 05:30 PT 11.0 Seconds (9.0-12.0) 07/12/19 15:10 INR 1.1 (0.9-1.1) 07/12/19 15:10 Blood Type O Positive 07/21/19 05:30 Antibody Screen NEGATIVE 07/21/19 05:30 07/14/19 16:31 Aerobic Blood Culture - Final Blood No growth in Aerobic bottle after 5 days. Anaerobic Blood Culture - Final Group B Beta Strep 07/14/19 13:41 Gram Stain - Final Thigh,Left Aerobic and Anaerobic Culture - Final Group B Beta Strep Finegoldia magna Anaerococcus prevotii 07/17/19 07:10 Aerobic Blood Culture - Preliminary Blood No growth in Aerobic bottle after 48 hours. Anaerobic Blood Culture - Preliminary No growth in Anaerobic bottle after 48 hours. 07/17/19 06:54 Aerobic Blood Culture - Preliminary Blood No growth in Aerobic bottle after 48 hours. Anaerobic Blood Culture - Preliminary No growth in Anaerobic bottle after 48 hours. 07/15/19 12:28 Gram Stain - Final Leg Wound Culture - Final Staph aureus MRSA 07/14/19 15:44 Aerobic Blood Culture - Final Blood Group B Beta Strep Anaerobic Blood Culture - Final Group B Beta Strep 07/21/19 07:48 POC Glucose 160 H Electrocardiogram Date: 07/12/19 Findings: + NSR @ (at 96;RAD;septal infarct;ST elevation injury pattern) Chest X-Ray Date: 07/12/19 Findings: + NAD
[2019-07-21] MEDS ORDERED: PAPAVERINE HCL INJ 30 MG/ML 2 ML VIAL ONE (12:19)
[2019-07-21] MEDS ORDERED: HEPARIN (PORCINE) 1000 UNIT/ML 10 ML (CATH LAB USE ONLY) ONE ×2 (12:19→12:49)
[2019-07-21] MEDS ORDERED: LIDOCAINE HCL 1% 20 ML VIAL ONE (12:19)
[2019-07-21] MEDS ORDERED: THROMBIN 5000 UNITS KIT ONE ×2 (12:19→18:18)
[2019-07-21] MEDS ORDERED: BUPIVACAINE/EPINEPHRINE 0.5% MPF 1:200,000 30 ML VIAL ONE (12:20)
[2019-07-21] MEDS ORDERED: CEFAZOLIN 250 MG/ML 1 GM VIAL ONE ×2 (12:20→18:18)
[2019-07-21] MEDS ORDERED: GELATIN SPONGE SZ 100 ONE ×2 (12:20→18:19)
[2019-07-21] MEDS ORDERED: IODIXANOL (VISIPAQUE) 270 MG/ML 50ML ONE ×2 (12:20→14:07)
[2019-07-21] MEDS ORDERED: MEPERIDINE HCL 25 MG/ML CARP IV PRN (12:21)
[2019-07-21] MEDS ORDERED: PHENYLEPHRINE 100MCG/ML 5ML SYR IV PRN (12:21)
[2019-07-21] MEDS ORDERED: HYDROmorphone INJ 1 MG/ML SYRINGE IV PRN (12:21)
[2019-07-21] MEDS ORDERED: BACITRACIN INJ 50,000 UNIT VIAL ONE ×2 (12:23→18:19)
[2019-07-21] MEDS ORDERED: HEPARIN SOD (PORCINE) 1000 UNIT/ML 10 ML VIAL ONE ×3 (12:26→18:57)
[2019-07-21] MEDS ORDERED: THROMBIN FOR SOLN 20000 UNIT KIT ONE (14:54)
[2019-07-21] MEDS ORDERED: CISATRACURIUM BESYLATE IV SOLN 2 MG/ML 10 ML VIAL IV ONE ×2 (15:08→19:29)
--- NOTE | 2019-07-21 15:52 | Family Medicine Progress Note ---
Date of Service July 21, 2019 Assessment & Plan (1) Streptococcal sepsis: #Streptococcal sepsis: Patient with infected left groin bypass. Blood cultures from 07/14/2019 as well as left thigh culture from the same date positive for group B beta streptococcus. Wound culture from 07/15/2019+ for MRSA. Blood cultures from 07/17/2019 2 out of 2 showed no growth to date. Patient is presently afebrile, hemodynamically stable, no leukocytosis. Plan for resection of infected graph on 07/21 with possible replacement with extra anatomical bovine graft. Examined patient in the immediate preoperative. He continues to do well -Infectious disease consulted following the recommendations -Continue vancomycin length to be determined -Continue to follow cultures -Routine postop care per vascular #Diabetes: Patient with history of Type II DM on multiple home agents. A1C in June was 8.3. He reports his blood sugars are high at home, 230's/240's which doesn't quite correlate with an AIC of 8. Blood sugars here have been fairly well controlled in the AM (90 - 174), higher in the afternoons (181-244). He has been receiving Lantus 15u qHS, no daytime coverage. Is tolerating a diet. -Ischemic consult placed pharmacy managing father recommendations -DM2 diet -Continue to hold home agents - Metformin, Toujeo, Trulicity and Jardiance -Continue home Neurontin for neuropathic pain # COPD (chronic obstructive pulmonary disease): COPD without acute exacerbation. Adequate oxygenation on room air. No wheeze. -Continue Combivent -Continue Albuterol PRN -Continue to monitor #Hypertension: Blood pressure stable at present, 130/70 -Resume lisinopril 40 mg postoperatively -Continue to monitor BP #JAMES on CPAP: Patient with JAMES. States he is compliant with CPAP at home. Does not wish to wear it here -O2 HS -Monitor saturations #Insomnia Patient anxious about his medical conditions and current status. Requested nursing for help with sleeping yesterday evening. -Ambien 5 mg p.o. at bedtime FENa: Type 2 diabetes diet Code Status: DNR/DNI per chart, need to confirm with patient DVT PPX: Per vascular PT/OT: Consulted Dispo: ICU after procedure Houston Mark MD PGY 2, [facility] This chart was completed utilizing [employer] voice recognition software. Grammatical errors, random word insertions, pronoun errors, and in complete sentences are an occasional consequence of the system. Any questions or concerns about the content, text, or information contained within the body of this dictation should be addressed directly to the physician for clarification. Supervising Physician Co-Signing Physician Notes Attending attestation Attempted to evaluate patient 4 times throughout the course of the day - patient still in operating room for protracted procedure. Reviewed chart in detail and will resume patient evaluation in the morning. For any urgent postoperative medical inquiries, please contact attendant campground for support. Will hold zolpidem postoperatively to avoid polypharmacy influenced sedation. Subjective 59-year-old male with past medical history of diabetes type 2, COPD, peripheral vascular disease with axillofemoral femoral and recent left femoral to profunda bypass. He was admitted to [facility] on July 13 for exploration of left groin and revision of previous proximal artery anastomosis secondary to bleeding from the left groin and pain. CTA at the time did not show any extravasation. At the time of admission there is no pus noted with the patient did feel tired and lightheaded. Patient did poorly in the immediate postoperative period, he was tachycardic, he received 10 mg of metoprolol and a liter of crystalloid without improvement. He was subsequently transferred to the ICU for further evaluation and management. Blood cultures were ordered and septic work-up was initiated. Blood cultures cultures grew out gram-positive co cci in chains and group B step strep from the left groin. Infectious disease was consulted, the patient was started on vancomycin, further cultures grew out staph species. Patient was determined to have streptococcal sepsis, and MRSA infected graft. Scheduled for surgery today to remove the infected graft. Patient resting comfortably in bed today during my evaluation, confirmed history with his . She reports the patient has been very anxious about his medical condition given all the medical comorbidities he has been struggling with. Otherwise patient doing well, acute concerns related to upcoming procedure, all questions answered. Review of Systems Constitutional: no fever and no chills Physical Exam Physical Exam: General: Middle-aged male in no acute distress sleeping comfortably HEENT: Normocephalic atraumatic Neck: Normal visual inspection Cardiac: Regular rate and rhythm, did not appreciate significant murmurs rubs or gallops, negative calf tenderness, 1+ pedal edema Respiratory: Clear to auscultation bilaterally without significant wheezes rales or rhonchi GI: Bowel sounds present Results & Data Vital Signs (Past 12 Hours) Vital Signs Temp Pulse Resp BP BP Pulse Ox 07/21/19 12:11 36.6 C 71 20 130/70 91 07/21/19 07:32 37 C 67 20 123/57 L 91 Laboratory Results 07/21/19 07/21/19 07/21/19 Range/Units 11:58 07:48 05:30 WBC 6.52 (4.8-10.8) K/uL RBC 3.94 L (4.7-6.1) M/uL Hgb 12.9 L (14.0-18.0) g/dL Hct 38.0 L (42-52) % MCV 96.4 (80-100) fL MCH 32.7 (25-34) pg MCHC 33.9 (32-36) g/dL RDW Std Deviation 50.5 H (36.4-46.3) fL RDW Coeff of Maira 14.4 (11.5-14.5) % Plt Count 271 (130-400) K/uL MPV 8.3 (7.4-10.4) fL Immature Gran % (Auto) 0.5 % Neut % (Auto) 54.0 % Lymph % (Auto) 36.0 % [place] % (Auto) 7.2 % Eos % (Auto) 1.7 % Baso % (Auto) 0.6 % Immature Gran # (Auto) 0.03 H (0.00-0.02) K/uL Neut # (Auto) 3.52 (1.4-6.5) K/uL Lymph # (Auto) 2.35 (1.2-3.4) K/uL [place] # (Auto) 0.47 (0.11-0.59) K/uL Eos # (Auto) 0.11 (0-0.5) K/uL Baso # (Auto) 0.04 (0-0.2) K/uL Creatinine (0.6-1.4) mg/dl Est Cr Clr Drug Dosing ml/min Est GFR ( Amer) Est GFR (Non-Af Amer) POC Glucose 174 H 160 H (70-99) Blood Type Antibody Screen Crossmatch 07/21/19 07/21/1907/20/19 Range/Units 05:30 05:30 20:21 WBC (4.8-10.8) K/uL RBC (4.7-6.1) M/uL Hgb (14.0-18.0) g/dL Hct (42-52) % MCV (80-100) fL MCH (25-34) pg MCHC (32-36) g/dL RDW Std Deviation (36.4-46.3) fL RDW Coeff of Maira (11.5-14.5) % Plt Count (130-400) K/uL MPV (7.4-10.4) fL Immature Gran % (Auto) % Neut % (Auto) % Lymph % (Auto) % [place] % (Auto) % Eos % (Auto) % Baso % (Auto) % Immature Gran # (Auto) (0.00-0.02) K/uL Neut # (Auto) (1.4-6.5) K/uL Lymph # (Auto) (1.2-3.4) K/uL [place] # (Auto) (0.11-0.59) K/uL Eos # (Auto) (0-0.5) K/uL Baso # (Auto) (0-0.2) K/uL Creatinine 0.68 (0.6-1.4) mg/dl Est Cr Clr Drug Dosing 139.2 ml/min Est GFR ( Amer) 122.0 Est GFR (Non-Af Amer) 105.3 POC Glucose 160 H (70-99) Blood Type O Positive Antibody Screen NEGATIVE Crossmatch See Detail 07/20/19 Range/Units 16:12 WBC (4.8-10.8) K/uL RBC (4.7-6.1) M/uL Hgb (14.0-18.0) g/dL Hct (42-52) % MCV (80-100) fL MCH (25-34) pg MCHC (32-36) g/dL RDW Std Deviation (36.4-46.3) fL RDW Coeff of Maira (11.5-14.5) % Plt Count (130-400) K/uL MPV (7.4-10.4) fL Immature Gran % (Auto) % Neut % (Auto) % Lymph % (Auto) % [place] % (Auto) % Eos % (Auto) % Baso % (Auto) % Immature Gran # (Auto) (0.00-0.02) K/uL Neut # (Auto) (1.4-6.5) K/uL Lymph # (Auto) (1.2-3.4) K/uL [place] # (Auto) (0.11-0.59) K/uL Eos # (Auto) (0-0.5) K/uL Baso # (Auto) (0-0.2) K/uL Creatinine (0.6-1.4) mg/dl Est Cr Clr Drug Dosing ml/min Est GFR ( Amer) Est GFR (Non-Af Amer) POC Glucose 170 H (70-99) Blood Type Antibody Screen Crossmatch Medications Administered Current Inpatient Medications Acetaminophen (Tylenol) 650 mg PO Q4H PRN PRN Reason: Pain or Fever Stop: 08/11/19 15:32 Hydrocodone Bitart/Acetaminophen ([place] 10/325) 1 tab PO QID PRN PRN Reason: Pain Stop: 07/26/19 15:38 Last Admin: 07/20/19 08:20 Dose: 1 tab Documented by: Albuterol (Ventolin Hfa) 2 puffs INH QID PRN PRN Reason: Shortness Of Breath Stop: 08/11/19 15:38 Albuterol (Combivent Respimat) 2 puffs INH QID RAFA Stop: 08/11/19 20:59 Last Admin: 07/21/19 09:25 Dose: 2 puffs Documented by: Aspirin (Ecotrin) 325 mg PO QAM RAFA Stop: 08/12/19 08:59 Last Admin: 07/21/19 09:26 Dose: Not Given Documented by: Atropine Sulfate (Atropine Sulfate) 0.5 mg IV Q1M PRN PRN Reason: PACU Use-HR<40 &/or Bradycardi Stop: 07/21/19 17:21 Dextrose (Dextrose 50%) 25 - 50 ml IV UD PRN; Protocol PRN Reason: Hypoglycemia Protocol Stop: 08/17/19 10:44 Docusate Sodium (Colace) 100 mg PO BID RAFA Stop: 08/17/19 11:14 Last Admin: 07/21/19 09:26 Dose: Not Given Documented by: Ephedrine Sulfate (Ephedrine Sulfate) 5 mg IV Q5M PRN PRN Reason: PACU Use Only-SBP<90 mmHg Stop: 07/21/19 17:21 Fentanyl Citrate (Fentanyl Citrate) 25 mcg IV Q5M PRN PRN Reason: PACU Use Only-Pain Stop: 07/21/19 17:21 Gabapentin (Neurontin) 800 mg PO TID [facility] Stop: 08/14/19 20:59 Last Admin: 07/21/19 09:26 Dose: Not Given Documented by: Glucagon (Glucagen) 1 mg IM UD PRN; Protocol PRN Reason: Hypoglycemia Protocol Stop: 08/17/19 10:44 Glucose (Glucose 40%) 15 - 30 gm PO UD PRN; Protocol PRN Reason: Hypoglycemia Protocol Stop: 08/17/19 10:44 Glucose (Dex4 Glucose) 4 - 8 tabs PO UD PRN; Protocol PRN Reason: Hypoglycemia Protocol Stop: 08/17/19 10:44 Hydromorphone HCl (Dilaudid) 0.25 mg IV Q5M PRN PRN Reason: PACU Use Only-Pain Stop: 07/21/19 17:21 Vancomycin HCl 2,000 mg/ (Sodium Chloride) 540 mls @ 200 mls/hr IV Q10H RAFA; Protocol Stop: 07/27/19 18:29 Last Admin: 07/21/19 13:30 Dose: 200 mls/hr Documented by: Sodium Chloride (Nss) 250 mls @ 15 mls/hr IV .[id number] PRN PRN Reason: For Transfusion Stop: 08/19/19 12:47 Insulin Aspart (Novolog Flexpen) 0 units SC ACHS [facility] Stop: 08/18/19 20:59 Last Admin: 07/21/19 12:08 Dose: Not Given Documented by: Insulin Glargine (Lantus Solostar Pen) 10 units SC BID [facility] Stop: 08/18/19 20:59 Last Admin: 07/20/19 22:11 Dose: 10 units Documented by: Labetalol HCl (Normodyne) 5 mg IV Q5M PRN PRN Reason: PACU Use-SBP>160 or DBP>100 Stop: 07/21/19 17:21 Lisinopril (Zestril) 40 mg PO QAM [facility] Stop: 08/12/19 08:59 Last Admin: 07/21/19 09:26 Dose: Not Given Documented by: Meperidine HCl (Demerol) 12.5 mg IV Q5M PRN PRN Reason: PACU Use Only-Pain/Shivering Stop: 07/21/19 17:21 Miscellaneous (Order Awaiting Action) 1 ea N/A QS RAFA Stop: 08/12/19 00:00 Last Admin: 07/21/19 09:26 Dose: Not Given Documented by: Miscellaneous (Order Awaiting Action) 1 ea N/A QS RAFA Stop: 08/12/19 00:00 Last Admin: 07/21/19 09:26 Dose: Not Given Documented by: Miscellaneous (Order Awaiting Action) 1 ea N/A QS RAFA Stop: 08/12/19 00:00 Last Admin: 07/21/19 09:26 Dose: Not Given Documented by: Miscellaneous (Carbohydrates For Hypoglycemia) 15 - 30 gm PO UD PRN PRN Reason: Hypoglycemia Treatment Stop: 08/17/19 10:44 Miscellaneous Information (Consult) 1 ea N/A UD PRN PRN Reason: Consult Stop: 08/13/19 17:33 Last Admin: 07/21/19 13:30 Dose: 1 ea Documented by: Morphine Sulfate (Morphine Sulfate) 2 mg IV Q4 PRN PRN Reason: Pain Stop: 07/28/19 22:54 Morphine Sulfate (Morphine Sulfate) 4 mg IV Q4 PRN PRN Reason: Pain Stop: 07/28/19 23:01 Last Admin: 07/17/19 03:10 Dose: 4 mg Documented by: Nitroglycerin (Nitrostat) 0.4 mg SL UD PRN PRN Reason: Chest Pain Stop: 08/11/19 15:32 Ondansetron HCl (Zofran) 4 mg IV ONCE PRN PRN Reason: PACU Use Only-Nausea/Vomiting Stop: 07/21/19 17:21 Phenylephrine HCl (Jac-Synephrine 500mcg/5ml) 100 mcg IV Q5M PRN PRN Reason: PACU Use Only-SBP<90 or HR>70 Stop: 07/21/19 17:21 Polyethylene Glycol (Miralax Powder Packet) 17 gm PO DAILY PRN PRN Reason: Constipation Stop: 11/07/19 11:02 Zolpidem Tartrate (Ambien) 5 mg PO HS PRN PRN Reason: Sleep Stop: 08/20/19 00:00 Last Admin: 07/21/19 00:44 Dose: 5 mg Documented by: PG Care Time/CCT Total # of Minutes Spent Total Time Spent with Patient: Total time spent is greater than 50% in coordination of care (as documented) at patient's floor/unit and/or counseling patient: Resident Activity Tracking Resident Involvement: Resident Care Provided Care Provided: Adult Hospital Medicine (1) Streptococcal sepsis Sepsis acute organ dysfunction status: unspecified Qualified Code(s): A40.9 - Streptococcal sepsis, unspecified
[2019-07-21] MEDS ORDERED: PHARMACY GLYCEMIC MGMT CONSULT PRN (16:00)
[2019-07-21] MEDS ORDERED: ESMOLOL HCL INJ 10 MG/ML 10ML VIAL IV ONE (17:24)
[2019-07-21] MEDS ORDERED: ePHEDrine sulfate 50 MG/ML SYR ONE (17:24)
[2019-07-21] MEDS ORDERED: PHENYLEPHRINE HCL 10 MG/ML VIAL ONE ×2 (17:24→19:33)
[2019-07-21] MEDS ORDERED: SODIUM CHLORIDE 0.9% 250 ML IV PRN (17:40)
[2019-07-21] MEDS ORDERED: HEPARIN (PORCINE) 1000 UNIT/ML 10 ML (CATH LAB USE ONLY) IV ONE (17:49)
[2019-07-21] MEDS ORDERED: HYDROmorphone INJ 2 MG/ML SYR/VIAL ONE (17:54)
[2019-07-21] MEDS ORDERED: INSULIN ASPART PER UNIT SC ONE (18:45)
--- NOTE | 2019-07-21 20:46 | Post Operative Brief Note ---
Immediate Post Op Note v1 Date of Surgery July 21, 2019 Pre & Post Diagnosis Operation Date: 07/14/19 11:30 Pre-Op Diagnosis: LEFT GROIN BLEEDING Post-Op Diagnosis: LEFT GROIN BLEEDING Operation Date: 07/21/19 12:40 Pre-Op Diagnosis: Infected left groin bypass Post-Op Diagnosis: Infected left groin bypass I identified the patient and participated in the time-out.: Yes Procedure Operation Date: 07/14/19 11:30 Actual Procedures p Exploration left groin, Revision proximal anastomosis(Left) - Denis Alanis MD Operation Date: 07/21/19 12:40 Actual Procedures p Angiogram Left Lower Extremity, Revision Left Axillary to Right Femoral Bypass with Interposition Bovine Graft, Removal of Left Limb of Axillary Femoral Bypass, Left Axillary Femoral Graft to Posterior Tibial Prosthetic Bypass Extra Anatomical, Application of Wound Vac 12x4x5 - Denis Alanis MD Surgeon Denis Alanis MD [place]aere MD Deborah Estimated Blood Loss 1,500 Findings Consistent with Post-Op Diagnosis Drains Santos Catheter (16french in place, anesthesia to monitor urine output during surgery) Anesthesia Type General Complications none Disposition Accompanied Patient To Recovery: No Disposition: Surgical ICU
[2019-07-21] MEDS ORDERED: INSULIN GLARGINE SOLOSTAR 100 UNITS/ML 3 ML PEN SC ONE (21:00)
--- NOTE | 2019-07-21 21:07 | Operative Report ---
Post Operative Report Pre & Post Diagnosis Operation Date: 07/14/19 11:30 Pre-Op Diagnosis: LEFT GROIN BLEEDING Post-Op Diagnosis: LEFT GROIN BLEEDING Operation Date: 07/21/19 12:40 Pre-Op Diagnosis: Infected left groin bypass Post-Op Diagnosis: Infected left groin bypass I identified the patient and participated in the time-out.: Yes Procedure Operation Date: 07/14/19 11:30 Actual Procedures p Exploration left groin, Revision proximal anastomosis(Left) - Denis Alanis MD Operation Date: 07/21/19 12:40 Actual Procedures p Angiogram Left Lower Extremity, Revision Left Axillary to Right Femoral Bypass with Interposition Bovine Graft, Removal of Left Limb of Axillary Femoral Bypass, Left Axillary Femoral Graft to Prosthetic Tibial Bypass Extra Anatomical, Application of Wound Vac 12x4x5 - Denis Alanis MD Surgeon Dr. Annabelle Trejo MD Release Manager None Estimated Blood Loss 1,500 Findings See Below On initial angiogram the patient had an occluded left limb of the axillary bifemoral bypass. The right limb was patent and the runoff consisted of profundal only on the right side. Angiogram of the left lower extremity showed no distal runoff from the occluded left limb of the axillary bifemoral bypass. Upon exploration of the left groin the left limb of the axillobifemoral was excised and a primary repair of the artery was completed. The jump graft to the profunda was also excised and a primary repair of the profunda was completed. After completion of the jump graft from the axillary bifemoral to the left PT bypass a completion angiogram showed backfilling of the pop as well as a PT that was intact all the way down to the foot. Radiation 46 mGy. Fluoroscopy time 0.2 minutes Contrast 40 cc. Specimens Right axillary bifemoral distal anastomosis. Left axillobifemoral distal anastomosis. Drains Left groin wound VAC. Anesthesia Type General Complications none Disposition Accompanied Patient To Recovery: Yes Disposition: Surgical ICU Indications Patient had an infected left groin axillary to femoral bypass. Description of Procedure The patient was brought to the operating room and correctly identified and placed on the operating table in the supine position. The right groin and abdomen was prepped and draped in a sterile fashion prior to prepping and draping a an Ioban was placed over the left groin to exclude an cover that infected field. An incision was made using a 15 blade over the left flank and the axillary femoral bypass was dissected free using combination of sharp dissection and electrocautery. A vessel loop was passed around the bypass and an 18-gauge needle was used to access the axillary bifemoral bypass. A J-wire was threaded through the access needle and the needle was exchanged for a 5 Lao sheath. An angiogram was obtained at that point which revealed a patent right limb of the axillary bifemoral bypass with runoff consistent of profundus only. The angiogram also revealed an occluded left limb of the axillary bifemoral bypass. No distal runoff in the leg was noted on that angiogram. Attention was then turned to the right groin where a an incision using a 15 blade was made over the right limb of the axillobifemoral bypass and using combination of sharp dissection as well as electrocautery the right limb of the axillobifemoral bypass was dissected free and a vessel loop was passed around it. 8000 units of heparin was then administered and allowed to circulate for 3 to 5 minutes. A Sanjeev hydro-electrical plumbing supervisor clamp was placed on the on the bypass of the left flank incision. Another clamp was placed on the bypass in the right groin incision. An 11 blade was used to make a transverse graftotomy and that was extended all the way around with a Camara scissors to completely and circumferentially several of the axillary bifemoral bypass. The same was done in the right groin incision. The graft and was dissected free and approximately 5 cm was dissected free and sent for culture the rest of the graft was allowed to be pushed into the initial tunnel. Using a 3-0 Vicryl suture that tunnel was closed. The same was done at the proximal incision. Using a [place] tunneler a tunnel was created superficially between the 2 incisions across the lower abdomen and a 8mm x 31cm bovine carotid artery Artegraft was tunneled in place. This was connected to the proximal end of the axillary bifemoral bypass with an end-to-end anastomosis using 5-0 Prolene sutures. The distal end of the bovine carotid artery graft was then cut to length and an end-to-end anastomosis was created between that and the distal end of the axillary bifemoral bypass which was the right limb of the axillobifemoral bypass. Upon completion of the anastomosis meticulous hemostasis was achieved and both incisions and both inci sions were closed with a 3-0 Vicryl suture with multilayered closure and then a 4-0 Vicryl suture subcu and Dermabond was applied over the incision. Tegaderms were placed over both incisions. Then the drapes were removed. The left groin nylon sutures were then cut and the patient's left groin was prepped and draped. The Vicryl sutures were then cut and the wound was opened to be explored purul ent discharge was noted in the wound and graft was also noted upon entry into the left groin. The graft was then dissected free to pull back the right limb of the axillobifemoral bypass graft as well as the remainder of the proximal end of the axillobifemoral bypass. This was dissected all the way down to the common femoral artery and anastomosis which was well incorporated. The graft was then excised and a #4 Sanjeev balloon was advanced proximally and distally and inflated to achieve hemostasis as the arteriotomy was repaired using 4-0 Prolene suture. Attention was then turned to the jump graft that was attached to the left limb of the axillobifemoral bypass and distally connecting to the profunda artery the left groin. This graft was not well incorporated and was easily dissected. The profunda was very fragile and multiple attempts to dissected free were attempted however the arterial wall edges were extremely fragile. At that point the decision was made to perform a primary repair using 4-0 Prolene suture in a continuous running fashion. At that point evaluation of the left foot revealed that the foot was dusky. 2-0 Vicryl suture was then used to approximate some deep tissues over the common femoral repair as well as the profunda artery repair on the left groin. A silver wound VAC sponge was then placed in the left groin and a wound VAC dressing was applied to the left groin and bridged medially. The drapes were then removed and upon evaluation of the left foot and its dusky appearance the decision was made to create a bypass to his left PT artery which was identified on a prior angiogram. The left flank and abdomen as well as the left lower extremity was circumferentially prepped and draped. Tegaderms were placed over the medial malleolus open ulcer to exclude. Once the left leg the flank and abdomen were prepped and draped in a sterile fashion we proceeded with opening the left flank incision over the axillobifemoral bypass which was created at the beginning of the procedure. A 6 cm incision below the knee the medial aspect of the left leg was then created and the fascia to the deep posterior compartment was then incised and opened and the posterior tibial artery and vein were then identified and dissected free. The posterior tibial artery appeared to be a suitable target for a distal bypass. A lateral incision was created at the left lower extremity below the knee. And a plane was created through the interosseous membrane to allow for the tunneling of the bypass from a lateral to medial position. A 6 mm x 800 mm ringed PTFE graft was then tunneled through the interosseous membrane. 8000 units of heparin IV were administered and allowed to circulate for 3 to 5 minutes. Using an 11 blade and arteriotomy was created in the anterior aspect of the posterior tibial artery and a Christie intervertebral clamp was placed inside the posterior tibial artery on both ends which was hemostatic. The PTFE was then beveled using an 11 blade and a 6-0 Prolene suture was then used to complete the anastomosis prior to completing the anastomosis the Christie internal clamp was removed and the PT was allowed to backbleed and forward blee d. The anastomosis was completed and hemostasis was achieved using thrombin soaked Gelfoam. The graft was then allowed to backbleed and showed good backbleeding. Using a [place] tunneler the graft was tunneled along the lateral aspect of the left lower extremity and unfortunately it was not able to reach the axillary to right femoral bypass. A counterincision was created on the lateral aspect of the abdomen and an additional 6 mm x 15 cm PTFE ringed graft was used to create an anastomosis jumping off the bovine carotid artery graft that was used at the beginning of the operation. This was then tunneled and a counterincision was created to bring both distal and proximal pieces of PTFE graft together and an end-to-end anastomosis was created using 6-0 PTFE suture. Thrombin-soaked Gelfoam was then used to achieve hemostasis and the wounds were all explored and meticulous hemostasis was achieved using electrocautery. A micropuncture access needle was then used to obtain access to the newly created jump graft to the PT at the proximal incision in the flank. Over a wire the needle was exchanged for a micropuncture sheath and a completion angiogram was completed. The completion angiogram revealed a patent distal anastomosis and backfilling of the popliteal artery and a distal PT that is patent all the way to the foot. A PT signal was also noted in the left foot and the left foot was appearing more pink in color and the mottling disappeared the left foot was also notably warmer. Using 2-0 Vicryl suture the incisions were all approximated and freedom were used to approximate the skin edges. The patient due to the length of the operation was kept intubated and transferred to the ICU on the ventilator. Dr. Alanis was scrubbed for the entirety of the case. I attest to the content of the Intraoperative Record and any orders documented therein. Any exceptions are noted below.
[2019-07-21] MEDS ORDERED: PROPOFOL IV EMULSION 10 MG/ML 100 ML VIAL IV ONE (21:18)
[2019-07-21] MEDS ORDERED: PROPOFOL 1,000 MG/100 ML VIAL IV SCH (21:30)
--- NOTE | 2019-07-21 21:35 | Critical Care Consultation ---
Date of Consultation July 21, 2019 History of Present Illness Attending Physician: Denis Alanis MD Allergies Allergy/AdvReac Type Severity Reaction Status Date / Time Penicillins Allergy Severe THROAT Verified 07/12/19 14:30 SWELLS AND HIVES Home Medications Home Medications Medication Instructions Recorded Confirmed Type Combivent Respimat 2 puff INHALATION QID 05/01/19 07/12/19 History Jardiance 10 mg PO QAM 05/01/19 07/12/19 History Toujeo SoloStar U-300 Insulin 15 unit SUBCUT QPM 05/01/19 07/12/19 History Trulicity 0.75 mg SUBCUT WK 05/01/19 07/12/19 History albuterol sulfate 2 puff INHALATION QID PRN 05/01/19 07/12/19 History aspirin 325 mg PO QAM 05/01/19 07/12/19 History cilostazol 100 mg PO BID 05/01/19 07/12/19 History gabapentin [Neurontin] 800 mg PO BID 05/01/19 07/12/19 History lisinopril 40 mg PO QAM 05/01/19 07/12/19 History metformin 1,000 mg PO BID 05/01/19 07/12/19 History hydrocodone-acetaminophen 1 tab PO QID PRN 05/30/19 07/12/19 History collagenase clostridium histo. 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 PER PT History of bowel resection WITH COLOSTOMY/REVERSAL LATER History of right hip replacement S/P femoral-popliteal bypass surgery X 2-LEFT LEG Family History Mother Family history of diabetes mellitus Uncle Family history of diabetes mellitus Social History Preferred Language: Samoan Communication Ability: Effective Legal Consultant Required: No Beliefs That Will Affect Care: None Current Living Situation: Spouse Current Living Situation Comment: only Other Information That Helps Us Care for You: No Feels Safe at Home: Yes Safety Concerns: Feels Safe At This Time Smoking Status: Former smoker Tobacco Type: smokeless tobacco ; Cigarettes Per Day: 16 ; Do You Dip or Chew Tobacco: Yes ; Second Hand Exposure: No ; Tobacco Cessation Education Requested by Patient: No Hx Alcohol Use: No Hx Substance Use: Yes substance use type: marijuana Last Used Substance: Unknown Results & Data Vital Signs (Past 12 Hours) Vital Signs Temp Pulse Resp BP Pulse Ox 07/21/19 12:11 36.6 C 71 20 130/70 91 PG Care Time/CCT Total # of Minutes Spent Total Time Spent with Patient: Total time spent is greater than 50% in coordination of care (as documented) at patient's floor/unit and/or counseling patient:
--- NOTE | 2019-07-21 21:38 | Critical Care Progress Note ---
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 -A-line for strict SBP management, goal 100-1 60 -Routine Doppler left dorsalis pulse HTNholding antihypertensives for now as patient's pressures are soft -A-line for continuous hemodynamic monitor Respiratory - Mechanical ventilationpatient remained intubated following procedure -Current settings AC VC 16/450/5/40 percent -AB.3 0/43/66/21 -Continuous oxygen saturation monitoring -Plan to remain intubated overnight, will wean vent as tolerated COPDContinue 4 times daily nebs GI - N.p.o., will advance diet after extubation RENAL/LYTES - Normosol at 125 Monitor routine BMPs and replete electrolytes - Foleystrict I's and O's ENDO - DM type IIholding home metformin continue insulin glargine and aspart -ICU hyperglycemic protocol HEME - H&H currently stable, required 2 units of RBCs in the OR during procedure -We will continue to routinely monitor H&H and replete as necessary ID - Infection of graftblood cultures previously grew MRSA, repeat cultures pending -We will continue vancomycin LINES/IV ACCESS - Peripheral IVs, ETT, Santos DVT PROPHYLAXIS - Holding anticoagulation due to recent procedure, unable to implement SCDs due to surgical incisions of lower extremities I have personally spent 50 minutes of critical care time in the direct management of this patient. This is a life/limb threatening event. This includes time spent evaluating patient, direct bedside care, chart review, placing orders, interpretation of diagnostic studies, discussion with consultants, patient, and family members, as well as other required patient management activities. This time is exclusive of all separately billable procedures, and teaching time and separate from and in addition to any other critical care service time. Thank you for allowing us to participate in the care of this patient. Please refer to my attending physician's documentation for any further recommendations. (2) Hypertension: (3) COPD (chronic obstructive pulmonary disease): (4) Diabetes: (5) Streptococcal sepsis: (6) Tachycardia: Supervising Physician Co-Signing Physician Notes I discussed this patient with Juana HOOVER via telephone please refer to my note today for additional information. Subjective Mr. Alegria is a 59-year-old male DM type II, COPD, PVD, axillofemoral graft and recent femoral to profunda bypass, left groin revision secondary to infection from MRSA, and recent admission ICU for sepsis. He now presents to the ICU following revision of left axillary to right femoral bypass with bovine graft, removal of left limb of axillary femoral bypass, left axillary femoral graft posterior tibial prosthetic bypass extra anatomical, and application of wound VAC to left groin. Patient remained intubated and sedated on arrival to the ICU following the procedure. Plan to leave intubated overnight and assess for extubation in the morning. Currently patient is hemodynamically stable without need for vasopressors. Patient had dopplerable left dorsalis pulse on arrival. Will remain in ICU for now for ventilator management and close observation following procedure. Review of Systems Review of Systems: Unobtainable due to endotracheal tube and Unobtainable due to reduced consciousness Physical Exam Eyes: PERRL, conjunctivae normal, anicteric sclerae ENMT: external ear and nose normal, oropharynx normal Respiratory: Symmetrical chest wall movement, bilateral breath sounds, lungs clear to auscultation bilaterally Cardiovascular: Rate/Rhythm: regular rhythm and + tachycardic Heart Sounds: normal S1 and normal S2 Vessels: no JVD Extremities: no edema Dopplerable pulses to left lower extremity Gastrointestinal (Abdomen): Inspection/Auscultation: + abdomen distended and normal bowel sounds Skin: Wound VAC to left groin, surgical incisions to left lower extremity. Left lower extremity dusky. Neurologic: Sedated, PERRLA Psychiatric: Unable to assess secondary to sedation Genitourinary: Indwelling Santos catheter present Results & Data Vital Signs (Past 12 Hours) Vital Signs Temp Pulse Resp BP Pulse Ox 07/21/19 12:11 36.6 C 71 20 130/70 91 PG Care Time/CCT Total # of Minutes Spent Total Time Spent with Patient: Total time spent is greater than 50% in coordination of care (as documented) at patient's floor/unit and/or counseling patient: Critical Care Time: Yes Total Critical Care Time: 50 (1) Streptococcal sepsis Sepsis acute organ dysfunction status: unspecified Qualified Code(s): A40.9 - Streptococcal sepsis, unspecified (2) Diabetes Diabetes mellitus complication detail: with polyneuropathy Diabetes mellitus complication status: with neurologic complications 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
[2019-07-21] MEDS ORDERED: fentaNYL citrate 100 MCG/2 ML VIAL IV STA (21:44)
[2019-07-21 21:50] LABS: iSTAT Creatinine 0.4 mg/dl (0.6-1.3); iSTAT Hemoglobin 10.9 g/dl (14.0-18.0); iSTAT Ionized Calcium 1.18 mmol/l (1.12-1.32); iSTAT Potassium 3.8 mEq/L (3.3-5.0)
[2019-07-21 21:50] LABS: iSTAT Creatinine 0.4 mg/dl (0.6-1.3); iSTAT Hemoglobin 11.6 g/dl (14.0-18.0); iSTAT Ionized Calcium 1.19 mmol/l (1.12-1.32); iSTAT Potassium 3.8 mEq/L (3.3-5.0)
[2019-07-21 21:50] LABS: iSTAT Creatinine 0.3 mg/dl (0.6-1.3); iSTAT Hemoglobin 11.9 g/dl (14.0-18.0); iSTAT Ionized Calcium 1.14 mmol/l (1.12-1.32)
--- NOTE | 2019-07-21 21:51 | Anesthesiology Progress Note ---
Date of Service July 21, 2019 Anesthesia Post Procedure Vital Signs Vital Signs: Temp Pulse Resp BP BP Pulse Ox 07/21/19 12:11 36.6 C 71 20 130/70 91 07/21/19 07:32 37 C 67 20 123/57 L 91 07/21/19 03:20 37.0 C 75 20 130/66 91 07/20/19 23:57 36.7 C 69 20 118/66 94 Pain Intensity Left Groin: Pain Intensity: 2 Left Foot: Pain Intensity: 8 Transfer of Care Handoff Completed per policy Notes Mental Status: see notes below Patient Amnestic to Procedure: Yes Nausea / Vomiting: adequately controlled Pain: adequately controlled Airway Patency, RR, SpO2: stable & adequate BP & HR: stable & adequate Hydration State: stable & adequate Anesthetic Complications: no major complications apparent and see Notes below Notes: Patient taken intubated and sedated direct to ICU as planned by myself, Dr. Alanis and Dr. Mejia. Report given by brushing operator to ADRIANNA Hardy in ICU. No apparent complications.
[2019-07-21 21:59] LABS: Hemoglobin 12.4 g/dL (14.0-18.0); Mean Corpuscular Hemoglobin 32.1 pg (25-34); Mean Corpuscular Hgb Conc 33.5 g/dL (32-36); Mean Corpuscular Volume 95.9 fL (80-100); Mean Platelet Volume 8.5 fL (7.4-10.4); Platelet Count 249 K/uL (130-400); RDW Coefficient of Variation 15.5 % (11.5-14.5); RDW Standard Deviation 53.8 fL (36.4-46.3); Red Blood Count 3.86 M/uL (4.7-6.1); White Blood Count 16.29 K/uL (4.8-10.8)
[2019-07-21] MEDS ORDERED: fentaNYL DRIP 1,250 MCG/250 ML BAG IV SCH (22:00)
[2019-07-21 22:25] LABS: BUN Creatinine Ratio 16.4 (10-20); Calcium 8.4 mg/dl (8.5-10.1); Creatinine Clr Calc Pharmacy 197.8 ml/min; Est GFR (African American) 140.8; Est GFR (Non-African American) 121.5; Potassium 4.1 mmol/L (3.5-5.1)
[2019-07-21] MEDS ORDERED: NORMOSOL-R 500 ML IV ONE (22:25)
[2019-07-21 22:34] LABS: iSTAT Art Bld Gas pCO2 Correct 42 mmHg (35-46); iSTAT Art Bld Gas pH Corrected 7.302 (7.35-7.45); iSTAT Arterial Blood Gas HCO3 21 meg/L (19-24); iSTAT Arterial Blood Gas pCO2 43 mmHg (35-46); iSTAT Arterial Blood Gas pO2 66 mmHg (80-95); iSTAT Arterial Blood Gas pO2 C 65; iSTAT Carbon Dioxide 22 mEq/l (24-31); iSTAT FiO2 30 %; iSTAT Site Art Line
[2019-07-21 23:54] LABS: Basophils # (auto) 0.04 K/uL (0-0.2); Basophils % (auto) 0.2 %; Eosinophils # (auto) 0.01 K/uL (0-0.5); Eosinophils % (auto) 0.1 %; Immature Granulocytes # (auto) 0.06 K/uL (0.00-0.02); Immature Granulocytes % (auto) 0.4 %; Lymphocytes # (auto) 1.51 K/uL (1.2-3.4); Lymphocytes % (auto) 9.4 %; Monocytes # (auto) 0.69 K/uL (0.11-0.59); Monocytes % (auto) 4.3 %; Neutrophils # (auto) 13.75 K/uL (1.4-6.5); Neutrophils % (auto) 85.6 %
[2019-07-22] MEDS ORDERED: HYDROCORTISONE SOD SUCCINATE 100 MG/2 ML VIAL IV STA (00:03)
[2019-07-22] MEDS: IPRATROPIUM BROMIDE/ALBUTEROL respimat INH INH SCH ×6 (00:07→20:25)
[2019-07-22] MEDS: INSULIN ASPART 100 UNITS/ML 3 ML PEN SC SCH ×6 (00:08→20:29)
[2019-07-22] MEDS: DOCUSATE SODIUM 100 MG CAP PO SCH ×3 (00:09→20:27)
[2019-07-22] MEDS: GABAPENTIN 800 MG TAB PO SCH ×4 (00:10→20:25)
[2019-07-22] MEDS ORDERED: NORMOSOL-R 500 ML IV ONE ×2 (00:15→06:37)
[2019-07-22] MEDS: VANCOMYCIN HCL 2,000 MG in SODIUM CHLORIDE 0.9% 500 ML IV SCH ×3 (00:25→20:33)
[2019-07-22] MEDS: SODIUM CHLORIDE 0.9% 1000ML 1,000 ML IV SCH ×2 (00:28→07:58)
[2019-07-22] MEDS: NORMOSOL-R 1,000 ML IV SCH ×2 (01:09→08:03)
[2019-07-22] MEDS ORDERED: ALBUMIN 5% 250 ML IV STA (01:15)
[2019-07-22] MEDS ORDERED: INSULIN ASPART 100 UNITS/ML 3 ML PEN SC SCH (02:00)
[2019-07-22 04:45] LABS: Basophils # (auto) 0.02 K/uL (0-0.2); Basophils % (auto) 0.1 %; Hematocrit (blood only) 31.9 % (42-52); Hemoglobin 10.6 g/dL (14.0-18.0); Immature Granulocytes # (auto) 0.07 K/uL (0.00-0.02); Immature Granulocytes % (auto) 0.5 %; Lymphocytes # (auto) 1.04 K/uL (1.2-3.4); Lymphocytes % (auto) 7.3 %; Mean Corpuscular Hemoglobin 31.8 pg (25-34); Mean Corpuscular Hgb Conc 33.2 g/dL (32-36); Mean Corpuscular Volume 95.8 fL (80-100); Mean Platelet Volume 8.4 fL (7.4-10.4); Monocytes # (auto) 0.43 K/uL (0.11-0.59); Neutrophils # (auto) 12.75 K/uL (1.4-6.5); Neutrophils % (auto) 89.1 %; Platelet Count 195 K/uL (130-400); RDW Coefficient of Variation 15.6 % (11.5-14.5); RDW Standard Deviation 54.2 fL (36.4-46.3); Red Blood Count 3.33 M/uL (4.7-6.1); White Blood Count 14.31 K/uL (4.8-10.8)
[2019-07-22 05:02] LABS: Albumin Level 2.8 gm/dl (3.4-5.0); BUN Creatinine Ratio 16.5 (10-20); Calcium 7.5 mg/dl (8.5-10.1); Creatinine Clr Calc Pharmacy 179.2 ml/min; Est GFR (African American) 135.2; Est GFR (Non-African American) 116.6; Potassium 4.1 mmol/L (3.5-5.1)
[2019-07-22 05:04] LABS: Bilirubin,Total 0.6 mg/dl (0.2-1); Globulin 2.8 gm/dl (2.5-4.0); Total Protein 5.6 gm/dl (6.4-8.2)
[2019-07-22 05:43] LABS: iSTAT Art Bld Gas pCO2 Correct 39 mmHg (35-46); iSTAT Arterial Blood Gas HCO3 24 meg/L (19-24); iSTAT Arterial Blood Gas pCO2 39 mmHg (35-46); iSTAT Arterial Blood Gas pH 7.39 (7.35-7.45); iSTAT Arterial Blood Gas pO2 90 mmHg (80-95); iSTAT Arterial Blood Gas pO2 C 88; iSTAT Carbon Dioxide 25 mEq/l (24-31); iSTAT FiO2 40 %; iSTAT Site Art Line
[2019-07-22] MEDS ORDERED: VANCOMYCIN TROUGH ONE (07:30)
[2019-07-22] MEDS: ALBUMIN 25% 50 ML IV SCH ×3 (08:20→10:17)
--- NOTE | 2019-07-22 08:23 | Critical Care Progress Note ---
Date of Service July 22, 2019 Assessment & Plan (1) Admitted to intensive care unit: Reason Critically Ill: 59-year-old male presents to the ICU following femoral bypass revision and insertion of wound VAC to left groin secondary to recent MRSA sepsis and infection of graft Neuro - [facility] ICU: NEGATIVE Sedation: Propofol Pain management: Fentanyl Cardiac - PVDpatient underwent revision of the left axillary to right femoral bypass with bovine graft, removal of left limb of axillary femoral bypass, left axillary femoral graft posterior tibial prosthetic bypass extra anatomical, and application of wound VAC to left groin following recent MRSA infection. -A-line for strict SBP management, goal 100-1 60 -Routine Doppler left dorsalis pulse HTNholding antihypertensives for now as patient's pressures are soft -A-line for continuous hemodynamic monitor Respiratory - Extubated now, sating well COPDContinue 4 times daily nebs GI - Diet Advanced RENAL/LYTES - Normosol at 125 Monitor routine BMPs and replete electrolytes - Foleystrict I's and O's ENDO - DM type IIholding home metformin continue insulin glargine and aspart -ICU hyperglycemic protocol HEME - H&H currently stable, required 2 units of RBCs in the OR during procedure -We will continue to routinely monitor H&H and replete as necessary ID - Infection of graftblood cultures previously grew MRSA, repeat cultures pending -We will continue vancomycin LINES/IV ACCESS - Peripheral IVs, ETT, Santos DVT PROPHYLAXIS - anticoagulation per surgery team, unable to implement SCDs due to surgical incisions of lower extremities DNR/DNI DISPI: Stable for downgrade out of ICU Supervising Physician Co-Signing Physician Notes Dr. Vera was resident physician during care of patient. I separately evaluated patient for perez portions of the history and the exam. I was present during the critical portion of medical decision making, and I discussed the case with the resident. I generally agree with the findings and plan. I discussed the patient with Dr. Alanis. Patient was following commands and had encouraging ventilator parameters and was successfully liberated from the ventilator. We are continuing to volume expand the patient. He is stable for transfer out of the ICU. Subjective 59 yo M found in bed this AM in NAD. Patient is awake and alert. Some pain at incision site. Extubated and sating well. No other acute concerns or complaints. Review of Systems Review of Systems: All systems reviewed & are unremarkable except as noted in HPI & below Physical Exam Constitutional: WD/WN, vitals as above Eyes: PERRL, conjunctivae normal, anicteric sclerae ENMT: external ear and nose normal, oropharynx normal Respiratory: normal respiratory effort, lungs clear to auscultation Cardiovascular: RRR, no murmur, no edema good pedal pulses Gastrointestinal (Abdomen): normal bowel sounds, soft, nontender, no hepatosplenomegaly Skin: Wound VAC to left groin, surgical incisions to left lower extremity intact Psychiatric: A+Ox3, euthymic affect Results & Data Vital Signs (Past 12 Hours) Vital Signs Temp Pulse Pulse Resp BP BP Pulse Ox 07/22/19 07:01 96 H 99 07/22/19 07:00 95 H 91/65 L 98 07/22/19 06:30 102 H 100/57 L 99 07/22/19 06:01 91 H 98 07/22/19 06:00 90 93/65 L 97 07/22/19 05:30 92 H 91/60 L 99 07/22/19 05:20 91 H 17 99 07/22/19 05:01 90 95 07/22/19 05:00 90 110/63 97 07/22/19 04:30 94 H 117/60 99 07/22/19 04:01 36.7 C 93 H 99 07/22/19 04:00 95 H 122/83 100 07/22/19 03:55 93 H 16 99 07/22/19 03:30 96 H 101/71 98 07/22/19 03:01 99 H 100 07/22/19 03:00 99 H 104/70 100 07/22/19 02:30 99 H 95/61 L 100 07/22/19 02:01 108 H 98 07/22/19 02:00 110 H 94/63 L 97 07/22/19 01:33 106 H 17 97 07/22/19 01:31 129 H 115/73 100 07/22/19 01:25 103 H 115/61 97 07/22/19 01:20 106 H 90/70 L 99 07/22/19 01:15 109 H 95/62 L 97 07/22/19 01:10 112 H 92/75 L 98 07/22/19 01:05 111 H 86/51 L 100 07/22/19 01:01 107 H 100 07/22/19 01:00 109 H 93/67 L 100 07/22/19 00:55 130 H 106/65 100 07/22/19 00:52 115 H 115/84 100 07/22/19 00:45 101 H 93/56 L 99 07/22/19 00:40 102 H 96/56 L 99 07/22/19 00:35 103 H 88/56 L 97 07/22/19 00:30 105 H 124/109 H 100 07/22/19 00:25 102 H 92/56 L 100 07/22/19 00:20 104 H 86/61 L 97 07/22/19 00:15 106 H 90/66 L 100 07/22/19 00:10 103 H 68/53 L 100 07/22/19 00:05 106 H 108/53 L 99 07/22/19 00:01 102 H 98 07/22/19 00:00 36.7 C 104 H 87/57 L 99 07/21/19 23:55 110 H 105/73 99 07/21/19 23:50 106 H 100/70 99 07/21/19 23:45 120 H 74/60 L 96 07/21/19 23:40 105 H 91/60 L 98 07/21/19 23:35 104 H 89/63 L 98 07/21/19 23:30 103 H 90/65 L 98 07/21/19 23:25 107 H 105/63 99 07/21/19 23:20 103 H 101/66 100 07/21/19 23:15 106 H 110/73 100 07/21/19 23:11 128 H 101/79 100 07/21/19 23:05 109 H 103/67 100 07/21/19 23:01 102 H 100 07/21/19 21:45 124 H 17 98 07/21/19 21:30 36.6 C 120 H 20 133/78 100 07/21/19 21:25 110 H 20 109/78 100 07/21/19 21:20 106 H 20 160/78 H 100 07/21/19 21:15 99 H 16 151/85 H 100 07/21/19 21:10 36.7 C 104 H 14 106/72 100 Laboratory Results Laboratory Results - last 24 hr 07/21/19 07/21/19 07/21/19 05:30 11:58 16:23 WBC RBC Hgb POC Hgb 11.6 L Hct POC Hct 34 L MCV MCH MCHC RDW Std Deviation RDW Coeff of Maira Plt Count MPV Immature Gran % (Auto) Neut % (Auto) Lymph % (Auto) [place] % (Auto) Eos % (Auto) Baso % (Auto) Immature Gran # (Auto) Neut # (Auto) Lymph # (Auto) [place] # (Auto) Eos # (Auto) Baso # (Auto) Absolute Nucleated RBC Nucleated RBC % (auto) PT INR APTT PTT Ratio Fibrinogen Sample Site POC pH POC pCO2 POC pO2 POC HCO3 POC Base Excess ABG pH (Temp Correct) ABG pCO2 (Temp Corrct POC ABG pO2 at Pt Temp POC ABG O2 Sat Mohit Test O2 Delivery Device POC O2 Rate Minute Ventilation POC FiO2 Tidal Volume PEEP POC Sodium 142 Sodium POC Potassium 3.8 Potassium POC Chloride 107 Chloride Carbon Dioxide POC Total CO2 26 Anion Gap POC Anion Gap 15.0 L POC BUN 5 L BUN Creatinine POC Creatinine 0.4 L Est Cr Clr Drug Dosing Est GFR ( Amer) Est GFR (Non-Af Amer) BUN/Creatinine Ratio Glucose POC Glucose 174 H POC Glucose (other) 161 H Lactate Calcium POC Ioniz Calcium [place] 1.19 Ionized Calcium Total Bilirubin AST ALT Alkaline Phosphatase Total Creatine Kinase Total Protein Albumin Globulin Albumin/Globulin Ratio Random Cortisol Vancomycin Trough Blood Type O Positive Antibody Screen NEGATIVE Crossmatch See Detail 07/21/19 07/21/19 07/21/19 16:48 18:24 20:01 WBC RBC Hgb POC Hgb 10.9 L 11.9 L Hct POC Hct 32 L 35 L MCV MCH MCHC RDW Std Deviation RDW Coeff of Maira Plt Count MPV Immature Gran % (Auto) Neut % (Auto) Lymph % (Auto) [place] % (Auto) Eos % (Auto) Baso % (Auto) Immature Gran # (Auto) Neut # (Auto) Lymph # (Auto) [place] # (Auto) Eos # (Auto) Baso # (Auto) Absolute Nucleated RBC Nucleated RBC % (auto) PT INR APTT PTT Ratio Fibrinogen Sample Site POC pH POC pCO2 POC pO2 POC HCO3 POC Base Excess ABG pH (Temp Correct) ABG pCO2 (Temp Corrct POC ABG pO2 at Pt Temp POC ABG O2 Sat Mohit Test O2 Delivery Device POC O2 Rate Minute Ventilation POC FiO2 Tidal Volume PEEP POC Sodium 143 142 Sodium POC Potassium 3.8 4.0 Potassium POC Chloride 108 107 Chloride Carbon Dioxide POC Total CO2 25 27 Anion Gap POC Anion Gap 15.0 L 14.0 L POC BUN 5 L 5 L BUN Creatinine POC Creatinine 0.4 L 0.3 L Est Cr Clr Drug Dosing Est GFR ( Amer) Est GFR (Non-Af Amer) BUN/Creatinine Ratio Glucose POC Glucose 177 H POC Glucose (other) 170 H 199 H Lactate Calcium POC Ioniz Calcium [place] 1.18 1.14 Ionized Calcium Total Bilirubin AST ALT Alkaline Phosphatase Total Creatine Kinase Total Protein Albumin Globulin Albumin/Globulin Ratio Random Cortisol Vancomycin Trough Blood Type Antibody Screen Crossmatch 07/21/19 07/21/19 07/21/19 21:39 21:39 22:12 WBC 16.29 H RBC 3.86 L Hgb 12.4 L POC Hgb Hct 37.0 L POC Hct MCV 95.9 MCH 32.1 MCHC 33.5 RDW Std Deviation 53.8 H RDW Coeff of Maira 15.5 H Plt Count 249 MPV 8.5 Immature Gran % (Auto) 0.4 Neut % (Auto) 85.6 Lymph % (Auto) 9.4 [place] % (Auto) 4.3 Eos % (Auto) 0.1 Baso % (Auto) 0.2 Immature Gran # (Auto) 0.06 H Neut # (Auto) 13.75 H Lymph # (Auto) 1.51 [place] # (Auto) 0.69 H Eos # (Auto) 0.01 Baso # (Auto) 0.04 Absolute Nucleated RBC 0.00 Nucleated RBC % (auto) 0.0 PT INR APTT PTT Ratio Fibrinogen Sample Site Art Line POC pH 7.30 L POC pCO2 43 POC pO2 66 L POC HCO3 21 POC Base Excess -6.0 ABG pH (Temp Correct) 7.302 L ABG pCO2 (Temp Corrct 42 POC ABG pO2 at Pt Temp 65 POC ABG O2 Sat 90.0 Mohit Test NA O2 Delivery Device Ventilator POC O2 Rate 14 Minute Ventilation 8.1 POC FiO2 30 Tidal Volume 450 PEEP 5 POC Sodium Sodium 142 POC Potassium Potassium 4.1 POC Chloride Chloride 112 H Carbon Dioxide 24 POC Total CO2 22 L Anion Gap 6.0 POC Anion Gap POC BUN BUN 8 Creatinine 0.48 L POC Creatinine Est Cr Clr Drug Dosing 197.8 Est GFR ( Amer) 140.8 Est GFR (Non-Af Amer) 121.5 BUN/Creatinine Ratio 16.4 Glucose 211 H POC Glucose POC Glucose (other) Lactate Calcium 8.4 L POC Ioniz Calcium [place] Ionized Calcium Total Bilirubin AST ALT Alkaline Phosphatase Total Creatine Kinase Total Protein Albumin Globulin Albumin/Globulin Ratio Random Cortisol Vancomycin Trough Blood Type Antibody Screen Crossmatch 07/21/19 07/22/19 07/22/19 23:25 00:30 01:55 WBC RBC Hgb POC Hgb Hct POC Hct MCV MCH MCHC RDW Std Deviation RDW Coeff of Maira Plt Count MPV Immature Gran % (Auto) Neut % (Auto) Lymph % (Auto) [place] % (Auto) Eos % (Auto) Baso % (Auto) Immature Gran # (Auto) Neut # (Auto) Lymph # (Auto) [place] # (Auto) Eos # (Auto) Baso # (Auto) Absolute Nucleated RBC Nucleated RBC % (auto) PT INR APTT PTT Ratio Fibrinogen Sample Site POC pH POC pCO2 POC pO2 POC HCO3 POC Base Excess ABG pH (Temp Correct) ABG pCO2 (Temp Corrct POC ABG pO2 at Pt Temp POC ABG O2 Sat Mohit Test O2 Delivery Device POC O2 Rate Minute Ventilation POC FiO2 Tidal Volume PEEP POC Sodium Sodium POC Potassium Potassium POC Chloride Chloride Carbon Dioxide POC Total CO2 Anion Gap POC Anion Gap POC BUN BUN Creatinine POC Creatinine Est Cr Clr Drug Dosing Est GFR ( Amer) Est GFR (Non-Af Amer) BUN/Creatinine Ratio Glucose POC Glucose 222 H 246 H POC Glucose (other) Lactate Calcium POC Ioniz Calcium [place] Ionized Calcium Total Bilirubin AST ALT Alkaline Phosphatase Total Creatine Kinase Total Protein Albumin Globulin Albumin/Globulin Ratio Random Cortisol 14.03 Vancomycin Trough Blood Type Antibody Screen Crossmatch 07/22/19 07/22/19 07/22/19 04:37 04:38 04:38 WBC 14.31 H RBC 3.33 L Hgb 10.6 L POC Hgb Hct 31.9 L POC Hct MCV 95.8 MCH 31.8 MCHC 33.2 RDW Std Deviation 54.2 H RDW Coeff of Maira 15.6 H Plt Count 195 MPV 8.4 Immature Gran % (Auto) 0.5 Neut % (Auto) 89.1 Lymph % (Auto) 7.3 [place] % (Auto) 3.0 Eos % (Auto) 0.0 Baso % (Auto) 0.1 Immature Gran # (Auto) 0.07 H Neut # (Auto) 12.75 H Lymph # (Auto) 1.04 L [place] # (Auto) 0.43 Eos # (Auto) 0.00 Baso # (Auto) 0.02 Absolute Nucleated RBC Nucleated RBC % (auto) PT INR APTT PTT Ratio Fibrinogen Sample Site POC pH POC pCO2 POC pO2 POC HCO3 POC Base Excess ABG pH (Temp Correct) ABG pCO2 (Temp Corrct POC ABG pO2 at Pt Temp POC ABG O2 Sat Mohit Test O2 Delivery Device POC O2 Rate Minute Ventilation POC FiO2 Tidal Volume PEEP POC Sodium Sodium 142 POC Potassium Potassium 4.1 POC Chloride Chloride 113 H Carbon Dioxide 26 POC Total CO2 Anion Gap 3.0 POC Anion Gap POC BUN BUN 9 Creatinine 0.53 L POC Creatinine Est Cr Clr Drug Dosing 179.2 Est GFR ( Amer) 135.2 Est GFR (Non-Af Amer) 116.6 BUN/Creatinine Ratio 16.5 Glucose 203 H POC Glucose POC Glucose (other) Lactate 0.6 Calcium 7.5 L POC Ioniz Calcium [place] Ionized Calcium Total Bilirubin 0.6 AST 9 L ALT 17 Alkaline Phosphatase 43 L Total Creatine Kinase 25 L Total Protein 5.6 L Albumin 2.8 L Globulin 2.8 Albumin/Globulin Ratio 1.0 Random Cortisol Vancomycin Trough Blood Type Antibody Screen Crossmatch 07/22/19 07/22/19 07/22/19 05:28 07:20 08:26 WBC RBC Hgb POC Hgb Hct POC Hct MCV MCH MCHC RDW Std Deviation RDW Coeff of Maira Plt Count MPV Immature Gran % (Auto) Neut % (Auto) Lymph % (Auto) [place] % (Auto) Eos % (Auto) Baso % (Auto) Immature Gran # (Auto) Neut # (Auto) Lymph # (Auto) [place] # (Auto) Eos # (Auto) Baso # (Auto) Absolute Nucleated RBC Nucleated RBC % (auto) PT 11.4 INR 1.1 APTT 28.9 PTT Ratio 1.1 Fibrinogen 246 Sample Site Art Line POC pH 7.39 POC pCO2 39 POC pO2 90 POC HCO3 24 POC Base Excess -1.0 ABG pH (Temp Correct) 7.390 ABG pCO2 (Temp Corrct 39 POC ABG pO2 at Pt Temp 88 POC ABG O2 Sat 97.0 H Mohit Test NA O2 Delivery Device Ventilator POC O2 Rate 16 Minute Ventilation 8.2 POC FiO2 40 Tidal Volume 450 PEEP 5 POC Sodium Sodium POC Potassium Potassium POC Chloride Chloride Carbon Dioxide POC Total CO2 25 Anion Gap POC Anion Gap POC BUN BUN Creatinine POC Creatinine Est Cr Clr Drug Dosing Est GFR ( Amer) Est GFR (Non-Af Amer) BUN/Creatinine Ratio Glucose POC Glucose POC Glucose (other) Lactate Calcium POC Ioniz Calcium [place] Ionized Calcium Total Bilirubin AST ALT Alkaline Phosphatase Total Creatine Kinase Total Protein Albumin Globulin Albumin/Globulin Ratio Random Cortisol Vancomycin Trough 19.5 Blood Type Antibody Screen Crossmatch 07/22/19 08:26 WBC RBC Hgb POC Hgb Hct POC Hct MCV MCH MCHC RDW Std Deviation RDW Coeff of Maira Plt Count MPV Immature Gran % (Auto) Neut % (Auto) Lymph % (Auto) [place] % (Auto) Eos % (Auto) Baso % (Auto) Immature Gran # (Auto) Neut # (Auto) Lymph # (Auto) [place] # (Auto) Eos # (Auto) Baso # (Auto) Absolute Nucleated RBC Nucleated RBC % (auto) PT INR APTT PTT Ratio Fibrinogen Sample Site POC pH POC pCO2 POC pO2 POC HCO3 POC Base Excess ABG pH (Temp Correct) ABG pCO2 (Temp Corrct POC ABG pO2 at Pt Temp POC ABG O2 Sat Mohit Test O2 Delivery Device POC O2 Rate Minute Ventilation POC FiO2 Tidal Volume PEEP POC Sodium Sodium POC Potassium Potassium POC Chloride Chloride Carbon Dioxide POC Total CO2 Anion Gap POC Anion Gap POC BUN BUN Creatinine POC Creatinine Est Cr Clr Drug Dosing Est GFR ( Amer) Est GFR (Non-Af Amer) BUN/Creatinine Ratio Glucose POC Glucose POC Glucose (other) Lactate Calcium POC Ioniz Calcium [place] Ionized Calcium 1.05 L Total Bilirubin AST ALT Alkaline Phosphatase Total Creatine Kinase Total Protein Albumin Globulin Albumin/Globulin Ratio Random Cortisol Vancomycin Trough Blood Type Antibody Screen Crossmatch Medications Administered Current Inpatient Medications Acetaminophen (Tylenol) 650 mg PO Q4H PRN PRN Reason: Pain or Fever Stop: 08/11/19 15:32 Hydrocodone Bitart/Acetaminophen ([place] ) 1 tab PO QID PRN PRN Reason: Pain Stop: 07/26/19 15:38 Last Admin: 07/20/19 08:20 Dose: 1 tab Documented by: Albuterol (Ventolin Hfa) 2 puffs INH QID PRN PRN Reason: Shortness Of Breath Stop: 08/11/19 15:38 Albuterol (Combivent Respimat) 2 puffs INH QID [facility] Stop: 08/11/19 20:59 Last Admin: 07/22/19 08:11 Dose: 2 puffs Documented by: Aspirin (Ecotrin) 325 mg PO QAM [facility] Stop: 08/12/19 08:59 Last Admin: 07/22/19 09:51 Dose: 325 mg Documented by: Dextrose (Dextrose 50%) 25 - 50 ml IV UD PRN; Protocol PRN Reason: Hypoglycemia Protocol Stop: 08/17/19 10:44 Docusate Sodium (Colace) 100 mg PO BID [facility] Stop: 08/17/19 11:14 Last Admin: 07/22/19 09:51 Dose: 100 mg Documented by: Gabapentin (Neurontin) 800 mg PO TID [facility] Stop: 08/14/19 20:59 Last Admin: 07/22/19 09:51 Dose: 800 mg Documented by: Glucagon (Glucagen) 1 mg IM UD PRN; Protocol PRN Reason: Hypoglycemia Protocol Stop: 08/17/19 10:44 Glucose (Glucose 40%) 15 - 30 gm PO UD PRN; Protocol PRN Reason: Hypoglycemia Protocol Stop: 08/17/19 10:44 Glucose (Dex4 Glucose) 4 - 8 tabs PO UD PRN; Protocol PRN Reason: Hypoglycemia Protocol Stop: 08/17/19 10:44 Vancomycin HCl 2,000 mg/ (Sodium Chloride) 540 mls @ 200 mls/hr IV Q10H [facility]; Protocol Stop: 07/27/19 18:29 Last Admin: 07/22/19 10:16 Dose: 200 mls/hr Documented by: Sodium Chloride (Nss 1000ml) 1,000 mls @ 125 mls/hr IV .Q8H [facility] Stop: 08/20/19 22:20 Last Admin: 07/22/19 07:58 Dose: Not Given Documented by: Parenteral Electrolytes (Normosol-R) 1,000 mls @ 125 mls/hr IV .Q8H [facility] Stop: 08/20/19 22:29 Last Admin: 07/22/19 08:03 Dose: 125 mls/hr Documented by: Heparin Sodium/Dextrose (Heparin Sodium/Dextrose) 25,000 units in 500 mls @ 30 mls/hr IV .[id number] [facility]; Protocol Stop: 08/21/19 10:14 Last Admin: 07/22/19 10:17 Dose: 1,500 units/hr, 30 mls/hr Documented by: Insulin Aspart (Novolog Flexpen) 0 units SC ACHS [facility] Stop: 08/18/19 20:59 Last Admin: 07/22/19 08:07 Dose: 5 units Documented by: Lisinopril (Zestril) 40 mg PO QAM [facility] Stop: 08/12/19 08:59 Last Admin: 07/22/19 08:30 Dose: Not Given Documented by: Miscellaneous (Order Awaiting Action) 1 ea N/A QS [facility] Stop: 08/12/19 00:00 Last Admin: 07/22/19 08:29 Dose: 1 ea Documented by: Miscellaneous (Order Awaiting Action) 1 ea N/A QS [facility] Stop: 08/12/19 00:00 Last Admin: 07/22/19 08:29 Dose: 1 ea Documented by: Miscellaneous (Order Awaiting Action) 1 ea N/A QS [facility] Stop: 08/12/19 00:00 Last Admin: 07/22/19 08:29 Dose: 1 ea Documented by: Miscellaneous (Carbohydrates For Hypoglycemia) 15 - 30 gm PO UD PRN PRN Reason: Hypoglycemia Treatment Stop: 08/17/19 10:44 Miscellaneous Information (Consult) 1 ea N/A UD PRN PRN Reason: Consult Stop: 08/13/19 17:33 Last Admin: 07/21/19 13:30 Dose: 1 ea Documented by: Miscellaneous Information (Consult Glycemic Management Pharmacy) 1 ea N/A UD PRN PRN Reason: Consult Stop: 08/20/19 15:59 Morphine Sulfate (Morphine Sulfate) 2 mg IV Q4 PRN PRN Reason: Pain Stop: 07/28/19 22:54 Morphine Sulfate (Morphine Sulfate) 4 mg IV Q4 PRN PRN Reason: Pain Stop: 07/28/19 23:01 Last Admin: 07/17/19 03:10 Dose: 4 mg Documented by: Nitroglycerin (Nitrostat) 0.4 mg SL UD PRN PRN Reason: Chest Pain Stop: 08/11/19 15:32 Polyethylene Glycol (Miralax Powder Packet) 17 gm PO DAILY PRN PRN Reason: Constipation Stop: 08/17/19 11:02 Warfarin Sodium (Coumadin) 10 mg PO DAILY@1600 [facility] Stop: 07/23/19 16:01 Zolpidem Tartrate (Ambien) 5 mg PO HS PRN PRN Reason: Sleep Stop: 08/20/19 00:00 Last Admin: 07/21/19 00:44 Dose: 5 mg Documented by: PG Care Time/CCT Total # of Minutes Spent Total Time Spent with Patient: Total time spent is greater than 50% in coordination of care (as documented) at patient's floor/unit and/or counseling patient:
[2019-07-22] MEDS ORDERED: HYDROmorphone INJ 0.5 MG/0.5 ML SYR IV STA (08:28)
[2019-07-22] MEDS: lisinopriL 40 MG TAB PO SCH (08:30)
[2019-07-22 09:00] LABS: Fibrinogen 246 mg/dl (184-400); INR 1.1 (0.9-1.1); Partial Thromboplastin Ratio 1.1; Partial Thromboplastin Time 28.9 Seconds (21.0-31.0); Prothrombin Time 11.4 Seconds (9.0-12.0)
[2019-07-22] MEDS ORDERED: INSULIN GLARGINE SOLOSTAR 100 UNITS/ML 3 ML PEN SC ONE ×2 (09:00→21:00)
--- NOTE | 2019-07-22 09:29 | Anesthesiology Progress Note ---
Date of Service July 22, 2019 Anesthesia Post Procedure Vital Signs Vital Signs: Temp Pulse Pulse Pulse Resp BP BP 07/22/19 07:01 96 H 07/22/19 07:00 95 H 91/65 L 07/22/19 06:30 102 H 100/57 L 07/22/19 06:01 91 H 07/22/19 06:00 90 93/65 L 07/22/19 05:30 92 H 91/60 L 07/22/19 05:20 91 H 17 07/22/19 05:01 90 07/22/19 05:00 90 110/63 07/22/19 04:30 94 H 117/60 07/22/19 04:01 36.7 C 93 H 07/22/19 04:00 95 H 122/83 07/22/19 03:55 93 H 16 07/22/19 03:30 96 H 101/71 07/22/19 03:01 99 H 07/22/19 03:00 99 H 104/70 07/22/19 02:30 99 H 95/61 L 07/22/19 02:01 108 H 07/22/19 02:00 110 H 94/63 L 07/22/19 01:33 106 H 17 07/22/19 01:31 129 H 115/73 07/22/19 01:25 103 H 115/61 07/22/19 01:20 106 H 90/70 L 07/22/19 01:15 109 H 95/62 L 07/22/19 01:10 112 H 92/75 L 07/22/19 01:05 111 H 86/51 L 07/22/19 01:01 107 H 07/22/19 01:00 109 H 93/67 L 07/22/19 00:55 130 H 106/65 07/22/19 00:52 115 H 115/84 07/22/19 00:45 101 H 93/56 L 07/22/19 00:40 102 H 96/56 L 07/22/19 00:35 103 H 88/56 L 07/22/19 00:30 105 H 124/109 H 07/22/19 00:25 102 H 92/56 L 07/22/19 00:20 104 H 86/61 L 07/22/19 00:15 106 H 90/66 L 07/22/19 00:10 103 H 68/53 L 07/22/19 00:05 106 H 108/53 L 07/22/19 00:01 102 H 07/22/19 00:00 36.7 C 104 H 87/57 L 07/21/19 23:55 110 H 105/73 07/21/19 23:50 106 H 100/70 07/21/19 23:45 120 H 74/60 L 07/21/19 23:40 105 H 91/60 L 07/21/19 23:35 104 H 89/63 L 07/21/19 23:30 103 H 90/65 L 07/21/19 23:25 107 H 105/63 07/21/19 23:20 103 H 101/66 07/21/19 23:15 106 H 110/73 07/21/19 23:11 128 H 101/79 07/21/19 23:05 109 H 103/67 07/21/19 23:01 102 H 07/21/19 21:45 124 H 17 07/21/19 21:30 36.6 C 120 H 20 133/78 07/21/19 21:25 110 H 20 109/78 07/21/19 21:20 106 H 20 160/78 H 07/21/19 21:15 99 H 16 151/85 H 07/21/19 21:10 36.7 C 104 H 14 106/72 07/21/19 12:11 36.6 C 71 20 130/70 Pulse Ox 07/22/19 07:01 99 07/22/19 07:00 98 07/22/19 06:30 99 07/22/19 06:01 98 07/22/19 06:00 97 07/22/19 05:30 99 07/22/19 05:20 99 07/22/19 05:01 95 07/22/19 05:00 97 07/22/19 04:30 99 07/22/19 04:01 99 07/22/19 04:00 100 07/22/19 03:55 99 07/22/19 03:30 98 07/22/19 03:01 100 07/22/19 03:00 100 07/22/19 02:30 100 07/22/19 02:01 98 07/22/19 02:00 97 07/22/19 01:33 97 07/22/19 01:31 100 07/22/19 01:25 97 07/22/19 01:20 99 07/22/19 01:15 97 07/22/19 01:10 98 07/22/19 01:05 100 07/22/19 01:01 100 07/22/19 01:00 100 07/22/19 00:55 100 07/22/19 00:52 100 07/22/19 00:45 99 07/22/19 00:40 99 07/22/19 00:35 97 07/22/19 00:30 100 07/22/19 00:25 100 07/22/19 00:20 97 07/22/19 00:15 100 07/22/19 00:10 100 07/22/19 00:05 99 07/22/19 00:01 98 07/22/19 00:00 99 07/21/19 23:55 99 07/21/19 23:50 99 07/21/19 23:45 96 07/21/19 23:40 98 07/21/19 23:35 98 07/21/19 23:30 98 07/21/19 23:25 99 07/21/19 23:20 100 07/21/19 23:15 100 07/21/19 23:11 100 07/21/19 23:05 100 07/21/19 23:01 100 07/21/19 21:45 98 07/21/19 21:30 100 07/21/19 21:25 100 07/21/19 21:20 100 07/21/19 21:15 100 07/21/19 21:10 100 07/21/19 12:11 91 Pain Intensity Left Groin: Pain Intensity: 2 Left Foot: Pain Intensity: 4 Notes Mental Status: alert / awake / arousable and participated in evaluation Patient Amnestic to Procedure: Yes Nausea / Vomiting: adequately controlled Pain: adequately controlled Airway Patency, RR, SpO2: stable & adequate BP & HR: stable & adequate Hydration State: stable & adequate Anesthetic Complications: no major complications apparent
[2019-07-22] MEDS ORDERED: Heparin IV Standard *NO* Bolus IV SCH (09:33)
--- NOTE | 2019-07-22 09:33 | Surgery Progress Note ---
Date of Service July 22, 2019 Assessment & Plan (1) Infected prosthetic vascular graft: He is doing well at this time we will transfer him to the PCU with telemetry. We will get him out of bed into a chair. At this point we are awaiting the cultures from the surgical procedure. We will start him on anticoagulation at this time. Subjective Patient is awake and alert. He is complaining of incisional pain left side incisions. He says his foot feels better and has. He was just extubated this morning. Physical Exam Physical Exam: Patient is awake and alert and oriented x3. His dressings are all intact. No significant drainage is noted in the dressings. He has an excellent posterior tibial left foot on Doppler exam. Constitutional: WD/WN, vitals as above Results & Data Vital Signs (Past 12 Hours) Vital Signs Temp Pulse Resp BP Pulse Ox 07/22/19 07:01 96 H 99 07/22/19 07:00 95 H 91/65 L 98 07/22/19 06:30 102 H 100/57 L 99 07/22/19 06:01 91 H 98 07/22/19 06:00 90 93/65 L 97 07/22/19 05:30 92 H 91/60 L 99 07/22/19 05:20 91 H 17 99 07/22/19 05:01 90 95 07/22/19 05:00 90 110/63 97 07/22/19 04:30 94 H 117/60 99 07/22/19 04:01 36.7 C 93 H 99 07/22/19 04:00 95 H 122/83 100 07/22/19 03:55 93 H 16 99 07/22/19 03:30 96 H 101/71 98 07/22/19 03:01 99 H 100 07/22/19 03:00 99 H 104/70 100 07/22/19 02:30 99 H 95/61 L 100 07/22/19 02:01 108 H 98 07/22/19 02:00 110 H 94/63 L 97 07/22/19 01:33 106 H 17 97 07/22/19 01:31 129 H 115/73 100 07/22/19 01:25 103 H 115/61 97 07/22/19 01:20 106 H 90/70 L 99 07/22/19 01:15 109 H 95/62 L 97 07/22/19 01:10 112 H 92/75 L 98 07/22/19 01:05 111 H 86/51 L 100 07/22/19 01:01 107 H 100 07/22/19 01:00 109 H 93/67 L 100 07/22/19 00:55 130 H 106/65 100 07/22/19 00:52 115 H 115/84 100 07/22/19 00:45 101 H 93/56 L 99 07/22/19 00:40 102 H 96/56 L 99 07/22/19 00:35 103 H 88/56 L 97 07/22/19 00:30 105 H 124/109 H 100 07/22/19 00:25 102 H 92/56 L 100 07/22/19 00:20 104 H 86/61 L 97 07/22/19 00:15 106 H 90/66 L 100 07/22/19 00:10 103 H 68/53 L 100 07/22/19 00:05 106 H 108/53 L 99 07/22/19 00:01 102 H 98 07/22/19 00:00 36.7 C 104 H 87/57 L 99 07/21/19 23:55 110 H 105/73 99 07/21/19 23:50 106 H 100/70 99 07/21/19 23:45 120 H 74/60 L 96 07/21/19 23:40 105 H 91/60 L 98 07/21/19 23:35 104 H 89/63 L 98 07/21/19 23:30 103 H 90/65 L 98 07/21/19 23:25 107 H 105/63 99 07/21/19 23:20 103 H 101/66 100 07/21/19 23:15 106 H 110/73 100 07/21/19 23:11 128 H 101/79 100 07/21/19 23:05 109 H 103/67 100 07/21/19 23:01 102 H 100 07/21/19 21:45 124 H 17 98
--- NOTE | 2019-07-22 09:40 | Pharmacy Report ---
Glycemic Control Consultation - Date of Service July 22, 2019 - Scope Scope: Glycemic Pharmacist consulted by Dr Mark on 07/21/19 for glycemic control and to write orders per [facility] inpatient glycemic control protocol - Objective Weight: 97.3 kg Accuchecks BSG (last 24hrs): 07/21/19 07/21/19 07/21/19 11:58 16:23 16:48 Glucose POC Glucose 174 H POC Glucose (other) 161 H 170 H 07/21/19 07/21/19 07/21/19 18:24 20:01 21:39 Glucose 211 H POC Glucose 177 H POC Glucose (other) 199 H 07/22/19 07/22/19 07/22/19 00:30 01:55 04:37 Glucose 203 H POC Glucose 222 H 246 H POC Glucose (other) Laboratory Data (last 24hrs): 07/21/19 07/22/19 21:39 04:37 Potassium 4.1 4.1 Carbon Dioxide 24 26 Anion Gap 6.0 3.0 Creatinine 0.48 L 0.53 L Est Cr Clr Drug Dosing 197.8 179.2 - Recent Pertinent Medications Outpatient Anti-diabetic Regimen: * Toujeo 15 units Qpm, metformin 1000 mg bid, trulicity, jardiance 10 mg q am * A1c = 8.3 % 06/15/19 The patient is currently receiving: * Basal insulin: Lantus 10 units every 12 hours * Correctional Insulin: Novolog Correction per scale ACHS Goal Range: Low 110 mg/dL - High 140 mg/dL Correction Factor: 25 mg/dL/unit * Prandial insulin: Per carb ratio of 1 unit per 8 grams CHO consumed * Oral Agents: Risk Factors for Insulin Resistance: * Steroids: hydrocortisone 100 mg x 1 last night * Infection: infected graft s/p surgery * Recent Surgery: POD 1 * Diet: NPO * Mechanical Ventilation: yes - Assessment & Plan Assessment & Plan: ASSESSMENT: * 59 year old male now s/p infected graft removal/revision. Remains ventilated post procedure/npo * Type 2 diabetic managed on toujeo at home 15 units in addition to metformin, trulicity and jardiance - A1C ~8.3% * Prior to procedure on 07/20 had been receiving ~35 units of insulin, 20 of which were basal and BSGs moderately controlled * Yesterday AM Lantus was held per MD due to patient going to procedure and evening Lantus never given as patient still in OR * Patient received hydrocortisone dose overnight - Fasting BSG this AM elevated at 203 mg/dL, likely due to no basal yesterday/steroids * Will give 15 units of Lantus this AM to make up for dose held yesterday and steroids and add scale on for this evening * Lunchtime BSG 226 mg/dL - spoke with nurse and patient ended up eating late breakfast and no insulin was given to cover carbs PLAN FOR INPATIENT GLYCEMIC CONTROL: * Holding outpatient oral diabetes medications * Basal insulin * Lantus 15 units this AM x 1 * Lantus HS per scale BSG <140 give 5 units 140-200 give 10 units, greater than 200 give 15 units * Bolus insulin * NovoLog per scale ACHS or Q6hrs while NPO * Goal Range: Oid139 mg/dL - High 140 mg/dL * Correction Factor: 20 mg/dL/unit * Nutritional / Prandial insulin per carb ratio of 1 unit per 7 grams CHO consumed * Please note that the plan above was derived based on current level of insulin resistance and hospital stress. These recommendations are appropriate for inpatient admission only. Plan of care upon discharge will need to be reassessed to avoid potential outpatient hypo/hyperglycemia. Thank you.
[2019-07-22] MEDS: ASPIRIN 325 MG ECTAB PO SCH (09:51)
[2019-07-22] MEDS: HEPARIN SODIUM/DEXTROSE 25,000 UNITS/500 ML BAG IV SCH (10:17)
--- NOTE | 2019-07-22 10:57 | Pharmacy Report ---
Pharmacy Abx Dose Short Note - Date of Service July 22, 2019 - Assessment & Plan Assessment 59 year old M receiving receiving vancomycin for treatment of group B beta strep bacteremia and groin infection in addition to MRSA wound infection. Patient is s/p graft removal/revision POD #1. Significant increase in WBC overnight (14.3 today up from 6.5 - may be due to prolonged surgery yesterday) Day # 9 of antimicrobial therapy. Microbiology: Follow-up blood cultures (07/17) - no growth at 5 days Leg cultures (07/21) - pending Plan Vancomycin * Trough level of 19.5 mcg/mL is therapeutic * Of note: dose preceding trough was given 2 hours late due to patient being in surgery; level of 19.5 may be slightly above true trough level. * Continue dose of 2000 mg IV every 10 hours (retimed due to surgery delaying 2200 dose yesterday) * Goal trough level for bacteremia : 15 to 20 mcg/mL (ideally will be closer to 20) * Trough or random level ordered for: 07/24/19 @1130 * Will continue to follow renal function (has been stable throughout admission) Pharmacy will continue to follow and will adjust dose/frequency as necessary. Thank you.
[2019-07-22] MEDS: HYDROCODONE/ACETAMINOPHEN 10/325 TAB PO PRN ×2 (15:20→20:32)
[2019-07-22] MEDS: WARFARIN SOD 10 MG TAB PO SCH (16:04)
--- NOTE | 2019-07-22 16:15 | Family Medicine Progress Note ---
Date of Service July 22, 2019 Assessment & Plan (1) Infected prosthetic vascular graft: 59yo M PMH HTN, DM with neuropathy, COPD, PAD with bilat LE ischemia, h/o fem/fem bypass, h/o ax/fem bypass, admitted 07/14 for bleeding incision with sepsis, +Blood cx (Gram + cocci and staph), developed L groin incision infection with MRSA. Medicine consulted for chronic medical issues and glucose management. Streptococcal sepsis: -S/P femoral bypass revision and insertion of wound VAC to left groin (07/21/19) secondary to recent MRSA sepsis and infection of graft -Infectious disease consulted, appreciate recs -Continue vancomycin, length to be determined -Continue to follow wound and blood cultures -Routine postop care per vascular T2DM -On multiple home agents. A1C in June was 8.3. -Is tolerating T2DM diet. -Glycemic consult placed; pharmacy managing further recommendation -Continue to hold home agents - Metformin, Toujeo, Trulicity and Jardiance -Continue home Neurontin for neuropathic pain COPD (chronic obstructive pulmonary disease) -COPD without acute exacerbation. Adequate oxygenation on room air. No wheeze. -Continue Combivent -Continue Albuterol PRN -Continue to monitor Hypertension: -Blood pressure stable at present -Continue lisinopril 40 mg JAMES on CPAP: -States he is compliant with CPAP at home. Does not wish to wear it here -Monitor saturations Insomnia -Ok to give ambien prn FENa: Type 2 diabetes diet Code Status: DNR/DNI DVT PPX: Per vascular PT/OT: Consulted Dispo: transferred out of ICU to PCU. 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 Negrete. In agreement with the documented findings as noted in the resident documentation with any exceptions or additions as noted here. Somewhat groggy on discussion, but answering lucidly. Pain well controlled on present regimen. Reports no lightheadedness, chest pain, cough, n/v. On examination, multiple operative site dressings in place and C/D/I without surrounding erythema. S1/S2 nl RRR no MCG. Decreased breath sounds bilateral bases. Infected prosthetic vascular graft s/p revision and augmentation - infectious disease consultation - continue vancomycin. Cultures pending (24 hrs today). Anticoagulation - heparin drip transitioning to warfarin, per surgical management DMII, poorly controlled, with neuropathy - metformin with insulin coverage with expected return to home medications on discharge. Continue gabapentin HTN - continue lisinopril for now, but consider decreasing coverage to maintain BP at 120/80s Else see resident documentation as noted. Subjective Pt notes he is "a little out of it" this morning after extubation. Reports some throat, leg, and abdominal pain. Review of Systems Review of Systems: All systems reviewed & are unremarkable except as noted in HPI & below Constitutional: + body aches, + malaise and + weakness Respiratory: + cough; no sputum production Cardiovascular: no chest pain, no radiating jaw, neck or arm pain and no dyspnea at rest Gastrointestinal: + abdominal pain Musculoskeletal: + myalgia Psychiatric: + confusion Physical Exam Constitutional: WD/WN, vitals as above + ill appearing (chronically), + obese and comfortable; no acute distress Eyes: PERRL, conjunctivae normal, anicteric sclerae ENMT: Mouth: + poor dentition; no TMJ abnormality Mallampati Class: I Neck: trachea midline, no thyromegaly normal visual inspection, trachea midline and + facial hair; neck nontender Respiratory: normal respiratory effort, lungs clear to auscultation normal respiratory effort and normal percussion; no respiratory distress and does not use accessory muscles Auscultation: lungs clear to auscultation bilaterally Cardiovascular: RRR, no murmur, no edema Rate/Rhythm: regular rate, regular rhythm and + tachycardic Heart Sounds: normal S1 and normal S2; no gallop, no murmur and no cardiac rub Vessels: normal peripheral pulses and posterior tibial pulses present (left present to doppler); no JVD Extremities: no edema Gastrointestinal (Abdomen): normal bowel sounds, soft, nontender, no hepatosplenomegaly Inspection/Auscultation: abdomen normal to inspection, + abdomen distended and normal bowel sounds Percussion/Palpation: abdomen soft; abdomen nontender Musculoskeletal: no cyanosis or clubbing, extremities motor strength 5/5 Spine: thoracic spine normal to inspection and lumbar spine normal to inspection; no pain with cervical ROM and no cervical spinal tenderness Extremities: strength 5/5 throughout Skin: no rashes, warm and dry normal turgor and + wound (Dressing intact left groin) Neurologic: patellar DTR's 2+ bilat, sensation intact CN's II-XI intact bilaterally and moves all extremities; no focal motor deficits Motor/Sensory: normal movement and no sensory deficit Psychiatric: A+Ox3, euthymic affect Orientation: alert, oriented x 3 and cooperative Affect: + anxious affect, + irritable affect and + angry affect Lymphatic: no cervical or axillary lymphadenopathy no inguinal lymphadenopathy Results & Data Vital Signs (Past 12 Hours) Vital Signs Temp Pulse Pulse Resp BP BP BP 07/22/19 15:45 97.9 F 90 12 121/70 07/22/19 13:28 97.7 F 91 H 95 H 18 123/68 07/22/19 12:01 83 16 07/22/19 12:00 85 20 110/54 L 07/22/19 11:01 81 07/22/19 11:00 84 103/48 L 07/22/19 10:30 85 93/46 L 07/22/19 10:01 96 H 109/56 L 07/22/19 10:00 95 H 07/22/19 09:31 93 H 07/22/19 09:30 95 H 108/61 07/22/19 09:01 100 H 07/22/19 09:00 102 H 115/69 07/22/19 08:31 95 H 07/22/19 08:30 97 H 107/64 07/22/19 08:26 96 H 98/59 L 07/22/19 08:01 112 H 07/22/19 08:00 99.9 F H 121 H 100 H 17 83/60 L 101/45 L 91/65 L 07/22/19 07:31 112 H 07/22/19 07:30 105 H 85/59 L 07/22/19 07:01 96 H 07/22/19 07:00 95 H 91/65 L 07/22/19 06:30 102 H 100/57 L 07/22/19 06:01 91 H 07/22/19 06:00 90 93/65 L 07/22/19 05:30 92 H 91/60 L 07/22/19 05:20 91 H 17 07/22/19 05:01 90 10/12/19 05:00 90 110/63 07/22/19 04:30 94 H 117/60 Pulse Ox Pulse Ox 07/22/19 15:45 93 07/22/19 13:28 93 93 07/22/19 12:01 92 07/22/19 12:00 95 07/22/19 11:01 99 07/22/19 11:00 99 07/22/19 10:30 100 07/22/19 10:01 99 07/22/19 10:00 99 07/22/19 09:31 95 07/22/19 09:30 95 07/22/19 09:01 97 07/22/19 09:00 96 07/22/19 08:31 95 07/22/19 08:30 95 07/22/19 08:26 95 07/22/19 08:01 98 07/22/19 08:00 99 07/22/19 07:31 100 07/22/19 07:30 100 07/22/19 07:01 99 07/22/19 07:00 98 07/22/19 06:30 99 07/22/19 06:01 98 07/22/19 06:00 97 07/22/19 05:30 99 07/22/19 05:20 99 07/22/19 05:01 95 07/22/19 05:00 97 07/22/19 04:30 99 Laboratory Results 07/22/19 07/22/19 07/22/19 Range/Units 11:15 08:26 08:26 WBC (4.8-10.8) K/uL RBC (4.7-6.1) M/uL Hgb (14.0-18.0) g/dL POC Hgb (14.0-18.0) g/dl Hct (42-52) % POC Hct (42-52) % MCV (80-100) fL MCH (25-34) pg MCHC (32-36) g/dL RDW Std Deviation (36.4-46.3) fL RDW Coeff of Maira (11.5-14.5) % Plt Count (130-400) K/uL MPV (7.4-10.4) fL Immature Gran % (Auto) % Neut % (Auto) % Lymph % (Auto) % [place] % (Auto) % Eos % (Auto) % Baso % (Auto) % Immature Gran # (Auto) (0.00-0.02) K/uL Neut # (Auto) (1.4-6.5) K/uL Lymph # (Auto) (1.2-3.4) K/uL [place] # (Auto) (0.11-0.59) K/uL Eos # (Auto) (0-0.5) K/uL Baso # (Auto) (0-0.2) K/uL Absolute Nucleated RBC (0-0) K/uL Nucleated RBC % (auto) % PT 11.4 (9.0-12.0) Seconds INR 1.1 (0.9-1.1) APTT 28.9 (21.0-31.0) Seconds PTT Ratio 1.1 Fibrinogen 246 (184-400) mg/dl Sample Site POC pH (7.35-7.45) POC pCO2 (35-46) mmHg POC pO2 (80-95) mmHg POC HCO3 (19-24) scot/L POC Base Excess (-9-1.8) scot/L ABG pH (Temp Correct) (7.35-7.45) ABG pCO2 (Temp Corrct (35-46) mmHg POC ABG pO2 at Pt Temp POC ABG O2 Sat (90-95) % Mohit Test O2 Delivery Device POC O2 Rate Minute Ventilation POC FiO2 % Tidal Volume PEEP POC Sodium (135-144) mEq/L Sodium (136-145) mmol/L POC Potassium (3.3-5.0) mEq/L Potassium (3.5-5.1) mmol/L POC Chloride (101-112) mEq/L Chloride (98-107) mmol/L Carbon Dioxide (21-32) mmol/L POC Total CO2 (24-31) mEq/l Anion Gap (3-11) POC Anion Gap (16-25) mmol/L POC BUN (7-18) mg/dl BUN (7-18) mg/dl Creatinine (0.6-1.4) mg/dl POC Creatinine (0.6-1.3) mg/dl Est Cr Clr Drug Dosing ml/min Est GFR ( Amer) Est GFR (Non-Af Amer) BUN/Creatinine Ratio (10-20) Glucose (70-99) mg/dl POC Glucose 226 H (70-99) POC Glucose (other) (70-99) mg/dl Lactate (0.4-2.0) mmol/L Calcium (8.5-10.1) mg/dl POC Ioniz Calcium [place] (1.12-1.32) mmol/l Ionized Calcium 1.05 L (1.12-1.32) mmol/L Total Bilirubin (0.2-1) mg/dl AST (15-37) U/L ALT (12-78) U/L Alkaline Phosphatase (45-117) U/L Total Creatine Kinase (39-308) U/L Total Protein (6.4-8.2) gm/dl Albumin (3.4-5.0) gm/dl Globulin (2.5-4.0) gm/dl Albumin/Globulin Ratio (0.9-2) Random Cortisol mcg/dl Vancomycin Trough (See Comment) mcg/ml Blood Type Antibody Screen Crossmatch 07/22/19 07/22/19 07/22/19 Range/Units 07:20 05:28 04:38 WBC (4.8-10.8) K/uL RBC (4.7-6.1) M/uL Hgb (14.0-18.0) g/dL POC Hgb (14.0-18.0) g/dl Hct (42-52) % POC Hct (42-52) % MCV (80-100) fL MCH (25-34) pg MCHC (32-36) g/dL RDW Std Deviation (36.4-46.3) fL RDW Coeff of Maira (11.5-14.5) % Plt Count (130-400) K/uL MPV (7.4-10.4) fL Immature Gran % (Auto) % Neut % (Auto) % Lymph % (Auto) % [place] % (Auto) % Eos % (Auto) % Baso % (Auto) % Immature Gran # (Auto) (0.00-0.02) K/uL Neut # (Auto) (1.4-6.5) K/uL Lymph # (Auto) (1.2-3.4) K/uL [place] # (Auto) (0.11-0.59) K/uL Eos # (Auto) (0-0.5) K/uL Baso # (Auto) (0-0.2) K/uL Absolute Nucleated RBC (0-0) K/uL Nucleated RBC % (auto) % PT (9.0-12.0) Seconds INR (0.9-1.1) APTT (21.0-31.0) Seconds PTT Ratio Fibrinogen (184-400) mg/dl Sample Site Art Line POC pH 7.39 (7.35-7.45) POC pCO2 39 (35-46) mmHg POC pO2 90 (80-95) mmHg POC HCO3 24 (19-24) scot/L POC Base Excess -1.0 (-9-1.8) scot/L ABG pH (Temp Correct) 7.390 (7.35-7.45) ABG pCO2 (Temp Corrct 39 (35-46) mmHg POC ABG pO2 at Pt Temp 88 POC ABG O2 Sat 97.0 H (90-95) % Mohit Test NA O2 Delivery Device Ventilator POC O2 Rate 16 Minute Ventilation 8.2 POC FiO2 40 % Tidal Volume 450 PEEP 5 POC Sodium (135-144) mEq/L Sodium (136-145) mmol/L POC Potassium (3.3-5.0) mEq/L Potassium (3.5-5.1) mmol/L POC Chloride (101-112) mEq/L Chloride (98-107) mmol/L Carbon Dioxide (21-32) mmol/L POC Total CO2 25 (24-31) mEq/l Anion Gap (3-11) POC Anion Gap (16-25) mmol/L POC BUN (7-18) mg/dl BUN (7-18) mg/dl Creatinine (0.6-1.4) mg/dl POC Creatinine (0.6-1.3) mg/dl Est Cr Clr Drug Dosing ml/min Est GFR ( Amer) Est GFR (Non-Af Amer) BUN/Creatinine Ratio (10-20) Glucose (70-99) mg/dl POC Glucose (70-99) POC Glucose (other) (70-99) mg/dl Lactate 0.6 (0.4-2.0) mmol/L Calcium (8.5-10.1) mg/dl POC Ioniz Calcium [place] (1.12-1.32) mmol/l Ionized Calcium (1.12-1.32) mmol/L Total Bilirubin (0.2-1) mg/dl AST (15-37) U/L ALT (12-78) U/L Alkaline Phosphatase (45-117) U/L Total Creatine Kinase (39-308) U/L Total Protein (6.4-8.2) gm/dl Albumin (3.4-5.0) gm/dl Globulin (2.5-4.0) gm/dl Albumin/Globulin Ratio (0.9-2) Random Cortisol mcg/dl Vancomycin Trough 19.5 (See Comment) mcg/ml Blood Type Antibody Screen Crossmatch 07/22/19 07/22/19 07/22/19 Range/Units 04:38 04:37 01:55 WBC 14.31 H (4.8-10.8) K/uL RBC 3.33 L (4.7-6.1) M/uL Hgb 10.6 L (14.0-18.0) g/dL POC Hgb (14.0-18.0) g/dl Hct 31.9 L (42-52) % POC Hct (42-52) % MCV 95.8 (80-100) fL MCH 31.8 (25-34) pg MCHC 33.2 (32-36) g/dL RDW Std Deviation 54.2 H (36.4-46.3) fL RDW Coeff of Maira 15.6 H (11.5-14.5) % Plt Count 195 (130-400) K/uL MPV 8.4 (7.4-10.4) fL Immature Gran % (Auto) 0.5 % Neut % (Auto) 89.1 % Lymph % (Auto) 7.3 % [place] % (Auto) 3.0 % Eos % (Auto) 0.0 % Baso % (Auto) 0.1 % Immature Gran # (Auto) 0.07 H (0.00-0.02) K/uL Neut # (Auto) 12.75 H (1.4-6.5) K/uL Lymph # (Auto) 1.04 L (1.2-3.4) K/uL [place] # (Auto) 0.43 (0.11-0.59) K/uL Eos # (Auto) 0.00 (0-0.5) K/uL Baso # (Auto) 0.02 (0-0.2) K/uL Absolute Nucleated RBC (0-0) K/uL Nucleated RBC % (auto) % PT (9.0-12.0) Seconds INR (0.9-1.1) APTT (21.0-31.0) Seconds PTT Ratio Fibrinogen (184-400) mg/dl Sample Site POC pH (7.35-7.45) POC pCO2 (35-46) mmHg POC pO2 (80-95) mmHg POC HCO3 (19-24) scot/L POC Base Excess (-9-1.8) scot/L ABG pH (Temp Correct) (7.35-7.45) ABG pCO2 (Temp Corrct (35-46) mmHg POC ABG pO2 at Pt Temp POC ABG O2 Sat (90-95) % Mohit Test O2 Delivery Device POC O2 Rate Minute Ventilation POC FiO2 % Tidal Volume PEEP POC Sodium (135-144) mEq/L Sodium 142 (136-145) mmol/L POC Potassium (3.3-5.0) mEq/L Potassium 4.1 (3.5-5.1) mmol/L POC Chloride (101-112) mEq/L Chloride 113 H (98-107) mmol/L Carbon Dioxide 26 (21-32) mmol/L POC Total CO2 (24-31) mEq/l Anion Gap 3.0 (3-11) POC Anion Gap (16-25) mmol/L POC BUN (7-18) mg/dl BUN 9 (7-18) mg/dl Creatinine 0.53 L (0.6-1.4) mg/dl POC Creatinine (0.6-1.3) mg/dl Est Cr Clr Drug Dosing 179.2 ml/min Est GFR ( Amer) 135.2 Est GFR (Non-Af Amer) 116.6 BUN/Creatinine Ratio 16.5 (10-20) Glucose 203 H (70-99) mg/dl POC Glucose 246 H (70-99) POC Glucose (other) (70-99) mg/dl Lactate (0.4-2.0) mmol/L Calcium 7.5 L (8.5-10.1) mg/dl POC Ioniz Calcium [place] (1.12-1.32) mmol/l Ionized Calcium (1.12-1.32) mmol/L Total Bilirubin 0.6 (0.2-1) mg/dl AST 9 L (15-37) U/L ALT 17 (12-78) U/L Alkaline Phosphatase 43 L (45-117) U/L Total Creatine Kinase 25 L (39-308) U/L Total Protein 5.6 L (6.4-8.2) gm/dl Albumin 2.8 L (3.4-5.0) gm/dl Globulin 2.8 (2.5-4.0) gm/dl Albumin/Globulin Ratio 1.0 (0.9-2) Random Cortisol mcg/dl Vancomycin Trough (See Comment) mcg/ml Blood Type Antibody Screen Crossmatch 07/22/19 07/21/19 07/21/19 Range/Units 00:30 23:25 22:12 WBC (4.8-10.8) K/uL RBC (4.7-6.1) M/uL Hgb (14.0-18.0) g/dL POC Hgb (14.0-18.0) g/dl Hct (42-52) % POC Hct (42-52) % MCV (80-100) fL MCH (25-34) pg MCHC (32-36) g/dL RDW Std Deviation (36.4-46.3) fL RDW Coeff of Maira (11.5-14.5) % Plt Count (130-400) K/uL MPV (7.4-10.4) fL Immature Gran % (Auto) % Neut % (Auto) % Lymph % (Auto) % [place] % (Auto) % Eos % (Auto) % Baso % (Auto) % Immature Gran # (Auto) (0.00-0.02) K/uL Neut # (Auto) (1.4-6.5) K/uL Lymph # (Auto) (1.2-3.4) K/uL [place] # (Auto) (0.11-0.59) K/uL Eos # (Auto) (0-0.5) K/uL Baso # (Auto) (0-0.2) K/uL Absolute Nucleated RBC (0-0) K/uL Nucleated RBC % (auto) % PT (9.0-12.0) Seconds INR (0.9-1.1) APTT (21.0-31.0) Seconds PTT Ratio Fibrinogen (184-400) mg/dl Sample Site Art Line POC pH 7.30 L (7.35-7.45) POC pCO2 43 (35-46) mmHg POC pO2 66 L (80-95) mmHg POC HCO3 21 (19-24) scot/L POC Base Excess -6.0 (-9-1.8) scot/L ABG pH (Temp Correct) 7.302 L (7.35-7.45) ABG pCO2 (Temp Corrct 42 (35-46) mmHg POC ABG pO2 at Pt Temp 65 POC ABG O2 Sat 90.0 (90-95) % Mohit Test NA O2 Delivery Device Ventilator POC O2 Rate 14 Minute Ventilation 8.1 POC FiO2 30 % Tidal Volume 450 PEEP 5 POC Sodium (135-144) mEq/L Sodium (136-145) mmol/L POC Potassium (3.3-5.0) mEq/L Potassium (3.5-5.1) mmol/L POC Chloride (101-112) mEq/L Chloride (98-107) mmol/L Carbon Dioxide (21-32) mmol/L POC Total CO2 22 L (24-31) mEq/l Anion Gap (3-11) POC Anion Gap (16-25) mmol/L POC BUN (7-18) mg/dl BUN (7-18) mg/dl Creatinine (0.6-1.4) mg/dl POC Creatinine (0.6-1.3) mg/dl Est Cr Clr Drug Dosing ml/min Est GFR ( Amer) Est GFR (Non-Af Amer) BUN/Creatinine Ratio (10-20) Glucose (70-99) mg/dl POC Glucose 222 H (70-99) POC Glucose (other) (70-99) mg/dl Lactate (0.4-2.0) mmol/L Calcium (8.5-10.1) mg/dl POC Ioniz Calcium [place] (1.12-1.32) mmol/l Ionized Calcium (1.12-1.32) mmol/L Total Bilirubin (0.2-1) mg/dl AST (15-37) U/L ALT (12-78) U/L Alkaline Phosphatase (45-117) U/L Total Creatine Kinase (39-308) U/L Total Protein (6.4-8.2) gm/dl Albumin (3.4-5.0) gm/dl Globulin (2.5-4.0) gm/dl Albumin/Globulin Ratio (0.9-2) Random Cortisol 14.03 mcg/dl Vancomycin Trough (See Comment) mcg/ml Blood Type Antibody Screen Crossmatch 07/21/19 07/21/19 07/21/19 Range/Units 21:39 21:39 20:01 WBC 16.29 H (4.8-10.8) K/uL RBC 3.86 L (4.7-6.1) M/uL Hgb 12.4 L (14.0-18.0) g/dL POC Hgb (14.0-18.0) g/dl Hct 37.0 L (42-52) % POC Hct (42-52) % MCV 95.9 (80-100) fL MCH 32.1 (25-34) pg MCHC 33.5 (32-36) g/dL RDW Std Deviation 53.8 H (36.4-46.3) fL RDW Coeff of Maira 15.5 H (11.5-14.5) % Plt Count 249 (130-400) K/uL MPV 8.5 (7.4-10.4) fL Immature Gran % (Auto) 0.4 % Neut % (Auto) 85.6 % Lymph % (Auto) 9.4 % [place] % (Auto) 4.3 % Eos % (Auto) 0.1 % Baso % (Auto) 0.2 % Immature Gran # (Auto) 0.06 H (0.00-0.02) K/uL Neut # (Auto) 13.75 H (1.4-6.5) K/uL Lymph # (Auto) 1.51 (1.2-3.4) K/uL [place] # (Auto) 0.69 H (0.11-0.59) K/uL Eos # (Auto) 0.01 (0-0.5) K/uL Baso # (Auto) 0.04 (0-0.2) K/uL Absolute Nucleated RBC 0.00 (0-0) K/uL Nucleated RBC % (auto) 0.0 % PT (9.0-12.0) Seconds INR (0.9-1.1) APTT (21.0-31.0) Seconds PTT Ratio Fibrinogen (184-400) mg/dl Sample Site POC pH (7.35-7.45) POC pCO2 (35-46) mmHg POC pO2 (80-95) mmHg POC HCO3 (19-24) scot/L POC Base Excess (-9-1.8) scot/L ABG pH (Temp Correct) (7.35-7.45) ABG pCO2 (Temp Corrct (35-46) mmHg POC ABG pO2 at Pt Temp POC ABG O2 Sat (90-95) % Mohit Test O2 Delivery Device POC O2 Rate Minute Ventilation POC FiO2 % Tidal Volume PEEP POC Sodium (135-144) mEq/L Sodium 142 (136-145) mmol/L POC Potassium (3.3-5.0) mEq/L Potassium 4.1 (3.5-5.1) mmol/L POC Chloride (101-112) mEq/L Chloride 112 H (98-107) mmol/L Carbon Dioxide 24 (21-32) mmol/L POC Total CO2 (24-31) mEq/l Anion Gap 6.0 (3-11) POC Anion Gap (16-25) mmol/L POC BUN (7-18) mg/dl BUN 8 (7-18) mg/dl Creatinine 0.48 L (0.6-1.4) mg/dl POC Creatinine (0.6-1.3) mg/dl Est Cr Clr Drug Dosing 197.8 ml/min Est GFR ( Amer) 140.8 Est GFR (Non-Af Amer) 121.5 BUN/Creatinine Ratio 16.4 (10-20) Glucose 211 H (70-99) mg/dl POC Glucose 177 H (70-99) POC Glucose (other) (70-99) mg/dl Lactate (0.4-2.0) mmol/L Calcium 8.4 L (8.5-10.1) mg/dl POC Ioniz Calcium [place] (1.12-1.32) mmol/l Ionized Calcium (1.12-1.32) mmol/L Total Bilirubin (0.2-1) mg/dl AST (15-37) U/L ALT (12-78) U/L Alkaline Phosphatase (45-117) U/L Total Creatine Kinase (39-308) U/L Total Protein (6.4-8.2) gm/dl Albumin (3.4-5.0) gm/dl Globulin (2.5-4.0) gm/dl Albumin/Globulin Ratio (0.9-2) Random Cortisol mcg/dl Vancomycin Trough (See Comment) mcg/ml Blood Type Antibody Screen Crossmatch 07/21/19 07/21/19 07/21/19 Range/Units 18:24 16:48 16:23 WBC (4.8-10.8) K/uL RBC (4.7-6.1) M/uL Hgb (14.0-18.0) g/dL POC Hgb 11.9 L 10.9 L 11.6 L (14.0-18.0) g/dl Hct (42-52) % POC Hct 35 L 32 L 34 L (42-52) % MCV (80-100) fL MCH (25-34) pg MCHC (32-36) g/dL RDW Std Deviation (36.4-46.3) fL RDW Coeff of Maira (11.5-14.5) % Plt Count (130-400) K/uL MPV (7.4-10.4) fL Immature Gran % (Auto) % Neut % (Auto) % Lymph % (Auto) % [place] % (Auto) % Eos % (Auto) % Baso % (Auto) % Immature Gran # (Auto) (0.00-0.02) K/uL Neut # (Auto) (1.4-6.5) K/uL Lymph # (Auto) (1.2-3.4) K/uL [place] # (Auto) (0.11-0.59) K/uL Eos # (Auto) (0-0.5) K/uL Baso # (Auto) (0-0.2) K/uL Absolute Nucleated RBC (0-0) K/uL Nucleated RBC % (auto) % PT (9.0-12.0) Seconds INR (0.9-1.1) APTT (21.0-31.0) Seconds PTT Ratio Fibrinogen (184-400) mg/dl Sample Site POC pH (7.35-7.45) POC pCO2 (35-46) mmHg POC pO2 (80-95) mmHg POC HCO3 (19-24) scot/L POC Base Excess (-9-1.8) scot/L ABG pH (Temp Correct) (7.35-7.45) ABG pCO2 (Temp Corrct (35-46) mmHg POC ABG pO2 at Pt Temp POC ABG O2 Sat (90-95) % Mohit Test O2 Delivery Device POC O2 Rate Minute Ventilation POC FiO2 % Tidal Volume PEEP POC Sodium 142 143 142 (135-144) mEq/L Sodium (136-145) mmol/L POC Potassium 4.0 3.8 3.8 (3.3-5.0) mEq/L Potassium (3.5-5.1) mmol/L POC Chloride 107 108 107 (101-112) mEq/L Chloride (98-107) mmol/L Carbon Dioxide (21-32) mmol/L POC Total CO2 27 25 26 (24-31) mEq/l Anion Gap (3-11) POC Anion Gap 14.0 L 15.0 L 15.0 L (16-25) mmol/L POC BUN 5 L 5 L 5 L (7-18) mg/dl BUN (7-18) mg/dl Creatinine (0.6-1.4) mg/dl POC Creatinine 0.3 L 0.4 L 0.4 L (0.6-1.3) mg/dl Est Cr Clr Drug Dosing ml/min Est GFR ( Amer) Est GFR (Non-Af Amer) BUN/Creatinine Ratio (10-20) Glucose (70-99) mg/dl POC Glucose (70-99) POC Glucose (other) 199 H 170 H 161 H (70-99) mg/dl Lactate (0.4-2.0) mmol/L Calcium (8.5-10.1) mg/dl POC Ioniz Calcium [place] 1.14 1.18 1.19 (1.12-1.32) mmol/l Ionized Calcium (1.12-1.32) mmol/L Total Bilirubin (0.2-1) mg/dl AST (15-37) U/L ALT (12-78) U/L Alkaline Phosphatase (45-117) U/L Total Creatine Kinase (39-308) U/L Total Protein (6.4-8.2) gm/dl Albumin (3.4-5.0) gm/dl Globulin (2.5-4.0) gm/dl Albumin/Globulin Ratio (0.9-2) Random Cortisol mcg/dl Vancomycin Trough (See Comment) mcg/ml Blood Type Antibody Screen Crossmatch 07/21/19 Range/Units 05:30 WBC (4.8-10.8) K/uL RBC (4.7-6.1) M/uL Hgb (14.0-18.0) g/dL POC Hgb (14.0-18.0) g/dl Hct (42-52) % POC Hct (42-52) % MCV (80-100) fL MCH (25-34) pg MCHC (32-36) g/dL RDW Std Deviation (36.4-46.3) fL RDW Coeff of Maira (11.5-14.5) % Plt Count (130-400) K/uL MPV (7.4-10.4) fL Immature Gran % (Auto) % Neut % (Auto) % Lymph % (Auto) % [place] % (Auto) % Eos % (Auto) % Baso % (Auto) % Immature Gran # (Auto) (0.00-0.02) K/uL Neut # (Auto) (1.4-6.5) K/uL Lymph # (Auto) (1.2-3.4) K/uL [place] # (Auto) (0.11-0.59) K/uL Eos # (Auto) (0-0.5) K/uL Baso # (Auto) (0-0.2) K/uL Absolute Nucleated RBC (0-0) K/uL Nucleated RBC % (auto) % PT (9.0-12.0) Seconds INR (0.9-1.1) APTT (21.0-31.0) Seconds PTT Ratio Fibrinogen (184-400) mg/dl Sample Site POC pH (7.35-7.45) POC pCO2 (35-46) mmHg POC pO2 (80-95) mmHg POC HCO3 (19-24) scot/L POC Base Excess (-9-1.8) scot/L ABG pH (Temp Correct) (7.35-7.45) ABG pCO2 (Temp Corrct (35-46) mmHg POC ABG pO2 at Pt Temp POC ABG O2 Sat (90-95) % Mohit Test O2 Delivery Device POC O2 Rate Minute Ventilation POC FiO2 % [place] Volume PEEP POC Sodium (135-144) mEq/L Sodium (136-145) mmol/L POC Potassium (3.3-5.0) mEq/L Potassium (3.5-5.1) mmol/L POC Chloride (101-112) mEq/L Chloride (98-107) mmol/L Carbon Dioxide (21-32) mmol/L POC Total CO2 (24-31) mEq/l Anion Gap (3-11) POC Anion Gap (16-25) mmol/L POC BUN (7-18) mg/dl BUN (7-18) mg/dl Creatinine (0.6-1.4) mg/dl POC Creatinine (0.6-1.3) mg/dl Est Cr Clr Drug Dosing ml/min Est GFR ( Amer) Est GFR (Non-Af Amer) BUN/Creatinine Ratio (10-20) Glucose (70-99) mg/dl POC Glucose (70-99) POC Glucose (other) (70-99) mg/dl Lactate (0.4-2.0) mmol/L Calcium (8.5-10.1) mg/dl POC Ioniz Calcium [place] (1.12-1.32) mmol/l Ionized Calcium (1.12-1.32) mmol/L Total Bilirubin (0.2-1) mg/dl AST (15-37) U/L ALT (12-78) U/L Alkaline Phosphatase (45-117) U/L Total Creatine Kinase (39-308) U/L Total Protein (6.4-8.2) gm/dl Albumin (3.4-5.0) gm/dl Globulin (2.5-4.0) gm/dl Albumin/Globulin Ratio (0.9-2) Random Cortisol mcg/dl Vancomycin Trough (See Comment) mcg/ml Blood Type O Positive Antibody Screen NEGATIVE Crossmatch See Detail Medications Administered Current Inpatient Medications Acetaminophen (Tylenol) 650 mg PO Q4H PRN PRN Reason: Pain or Fever Stop: 08/11/19 15:32 Hydrocodone Bitart/Acetaminophen ([place] 10325) 1 tab PO QID PRN PRN Reason: Pain Stop: 07/26/19 15:38 Last Admin: 07/22/19 15:20 Dose: 1 tab Documented by: Albuterol (Ventolin Hfa) 2 puffs INH QID PRN PRN Reason: Shortness Of Breath Stop: 08/11/19 15:38 Albuterol (Combivent Respimat) 2 puffs INH QID RAFA Stop: 08/11/19 20:59 Last Admin: 07/22/19 12:45 Dose: 2 puffs Documented by: Aspirin (Ecotrin) 325 mg PO QAM [facility] Stop: 08/12/19 08:59 Last Admin: 07/22/19 09:51 Dose: 325 mg Documented by: Dextrose (Dextrose 50%) 25 - 50 ml IV UD PRN; Protocol PRN Reason: Hypoglycemia Protocol Stop: 08/17/19 10:44 Docusate Sodium (Colace) 100 mg PO BID [facility] Stop: 08/17/19 11:14 Last Admin: 07/22/19 09:51 Dose: 100 mg Documented by: Gabapentin (Neurontin) 800 mg PO TID [facility] Stop: 08/14/19 20:59 Last Admin: 07/22/19 13:54 Dose: 800 mg Documented by: Glucagon (Glucagen) 1 mg IM UD PRN; Protocol PRN Reason: Hypoglycemia Protocol Stop: 08/17/19 10:44 Glucose (Glucose 40%) 15 - 30 gm PO UD PRN; Protocol PRN Reason: Hypoglycemia Protocol Stop: 08/17/19 10:44 Glucose (Dex4 Glucose) 4 - 8 tabs PO UD PRN; Protocol PRN Reason: Hypoglycemia Protocol Stop: 08/17/19 10:44 Vancomycin HCl 2,000 mg/ (Sodium Chloride) 540 mls @ 200 mls/hr IV Q10H [facility]; Protocol Stop: 07/27/19 18:29 Last Infusion: 07/22/19 12:58 Dose: Infused Documented by: Heparin Sodium/Dextrose (Heparin Sodium/Dextrose) 25,000 units in 500 mls @ 30 mls/hr IV .[id number] [facility]; Protocol Stop: 08/21/19 10:14 Last Titration: 07/22/19 15:16 Dose: 1,500 units/hr, 30 mls/hr Documented by: Insulin Aspart (Novolog Flexpen) 0 units SC ACHS [facility] Stop: 08/18/19 20:59 Last Admin: 07/22/19 11:53 Dose: 8 units Documented by: Insulin Aspart (Novolog Flexpen) 0 units SC 0000,[id number] [facility] Stop: 07/23/19 04:01 Insulin Glargine (Lantus Solostar Pen) 0 units SC HS ONE; Protocol Stop: 07/22/19 21:01 Lisinopril (Zestril) 40 mg PO QAM [facility] Stop: 08/12/19 08:59 Last Admin: 07/22/19 08:30 Dose: Not Given Documented by: Metformin HCl (Glucophage) 1,000 mg PO BIDM [facility] Stop: 08/21/19 16:59 Miscellaneous (Order Awaiting Action) 1 ea N/A QS [facility] Stop: 08/12/19 00:00 Last Admin: 07/22/19 16:08 Dose: Not Given Documented by: Miscellaneous (Order Awaiting Action) 1 ea N/A QS [facility] Stop: 08/12/19 00:00 Last Admin: 07/22/19 16:08 Dose: Not Given Documented by: Miscellaneous (Order Awaiting Action) 1 ea N/A QS [facility] Stop: 08/12/19 00:00 Last Admin: 07/22/19 16:08 Dose: Not Given Documented by: Miscellaneous (Carbohydrates For Hypoglycemia) 15 - 30 gm PO UD PRN PRN Reason: Hypoglycemia Treatment Stop: 08/17/19 10:44 Miscellaneous Information (Consult) 1 ea N/A UD PRN PRN Reason: Consult Stop: 08/13/19 17:33 Last Admin: 07/21/19 13:30 Dose: 1 ea Documented by: Miscellaneous Information (Consult Glycemic Management Pharmacy) 1 ea N/A UD PRN PRN Reason: Consult Stop: 08/20/19 15:59 Morphine Sulfate (Morphine Sulfate) 2 mg IV Q4 PRN PRN Reason: Pain Stop: 07/28/19 22:54 Morphine Sulfate (Morphine Sulfate) 4 mg IV Q4 PRN PRN Reason: Pain Stop: 07/28/19 23:01 Last Admin: 07/17/19 03:10 Dose: 4 mg Documented by: Nitroglycerin (Nitrostat) 0.4 mg SL UD PRN PRN Reason: Chest Pain Stop: 08/11/19 15:32 Polyethylene Glycol (Miralax Powder Packet) 17 gm PO DAILY PRN PRN Reason: Constipation Stop: 08/17/19 11:02 Warfarin Sodium (Coumadin) 10 mg PO DAILY@1600 [facility] Stop: 07/23/19 16:01 Last Admin: 07/22/19 16:04 Dose: 10 mg Documented by: Zolpidem Tartrate (Ambien) 5 mg PO HS PRN PRN Reason: Sleep Stop: 08/20/19 00:00 Last Admin: 07/21/19 00:44 Dose: 5 mg Documented by: PG Care Time/CCT Total # of Minutes Spent Total Time Spent with Patient: Total time spent is greater than 50% in coordination of care (as documented) at patient's floor/unit and/or counseling patient: Resident Activity Tracking Resident Involvement: Resident Care Provided Care Provided: Adult Hospital Medicine (1) Streptococcal sepsis Sepsis acute organ dysfunction status: unspecified Qualified Code(s): A40.9 - Streptococcal sepsis, unspecified (2) Diabetes Diabetes mellitus complication detail: with polyneuropathy Diabetes mellitus complication status: with neurologic complications Diabetes mellitus terminal gauger insulin use: with residential use Diabetes mellitus type: type 2 Qualified Code(s): E11.42 - Type 2 diabetes mellitus with diabetic polyneuropathy; Z79.4 - terminal carman (current) use of insulin (3) COPD (chronic obstructive pulmonary disease) COPD type: unspecified COPD Qualified Code(s): J44.9 - Chronic obstructive pulmonary disease, unspecified (4) Hypertension Hypertension type: essential hypertension Qualified Code(s): I10 - Essential (primary) hypertension
[2019-07-22 16:52] LABS: Partial Thromboplastin Ratio 1.8
[2019-07-22 17:01] LABS: Partial Thromboplastin Time 48.3 Seconds (21.0-31.0)
[2019-07-22] MEDS: METFORMIN HCL 500 MG TAB PO SCH (17:28)
[2019-07-22] MEDS ORDERED: ALBUMIN 5% 250 ML IV ONE (23:45)
[2019-07-23] MEDS: INSULIN ASPART 100 UNITS/ML 3 ML PEN SC SCH ×6 (00:08→20:56)
[2019-07-23] MEDS: HEPARIN SODIUM/DEXTROSE 25,000 UNITS/500 ML BAG IV SCH ×3 (02:55→19:49)
[2019-07-23] MEDS: MoRPHine SULFATE 2 MG/ML CARP IV PRN ×2 (02:56→10:33)
[2019-07-23] MEDS: VANCOMYCIN HCL 2,000 MG in SODIUM CHLORIDE 0.9% 500 ML IV SCH ×2 (05:14→16:35)
[2019-07-23 06:49] LABS: Basophils # (auto) 0.03 K/uL (0-0.2); Basophils % (auto) 0.3 %; Eosinophils # (auto) 0.05 K/uL (0-0.5); Eosinophils % (auto) 0.6 %; Hematocrit (blood only) 25.4 % (42-52); Hemoglobin 8.6 g/dL (14.0-18.0); Immature Granulocytes # (auto) 0.02 K/uL (0.00-0.02); Immature Granulocytes % (auto) 0.2 %; Lymphocytes # (auto) 2.09 K/uL (1.2-3.4); Lymphocytes % (auto) 23.6 %; Mean Corpuscular Hemoglobin 32.6 pg (25-34); Mean Corpuscular Hgb Conc 33.9 g/dL (32-36); Mean Corpuscular Volume 96.2 fL (80-100); Mean Platelet Volume 8.4 fL (7.4-10.4); Monocytes # (auto) 0.65 K/uL (0.11-0.59); Monocytes % (auto) 7.3 %; Neutrophils # (auto) 6.02 K/uL (1.4-6.5); Platelet Count 190 K/uL (130-400); RDW Coefficient of Variation 15.8 % (11.5-14.5); RDW Standard Deviation 54.8 fL (36.4-46.3); Red Blood Count 2.64 M/uL (4.7-6.1); White Blood Count 8.86 K/uL (4.8-10.8)
[2019-07-23 07:08] LABS: BUN Creatinine Ratio 11.5 (10-20); Calcium 7.6 mg/dl (8.5-10.1); Creatinine Clr Calc Pharmacy 203.1 ml/min; Est GFR (African American) 140.8; Est GFR (Non-African American) 121.5; Partial Thromboplastin Ratio 2.3; Potassium 3.4 mmol/L (3.5-5.1)
[2019-07-23] MEDS: IPRATROPIUM BROMIDE/ALBUTEROL respimat INH INH SCH ×4 (07:13→20:54)
[2019-07-23 07:17] LABS: Partial Thromboplastin Time 62.8 Seconds (21.0-31.0)
[2019-07-23] MEDS: HYDROCODONE/ACETAMINOPHEN 10/325 TAB PO PRN ×3 (07:27→19:49)
[2019-07-23] MEDS: GABAPENTIN 800 MG TAB PO SCH ×3 (08:13→20:54)
[2019-07-23] MEDS: DOCUSATE SODIUM 100 MG CAP PO SCH ×2 (08:14→20:54)
[2019-07-23] MEDS: METFORMIN HCL 500 MG TAB PO SCH ×2 (08:14→16:37)
[2019-07-23] MEDS: ASPIRIN 325 MG ECTAB PO SCH (08:14)
[2019-07-23] MEDS: lisinopriL 40 MG TAB PO SCH (08:15)
[2019-07-23] MEDS ORDERED: INSULIN ASPART 100 UNITS/ML 3 ML PEN SC SCH (08:45)
--- NOTE | 2019-07-23 09:30 | Family Medicine Progress Note ---
Date of Service July 23, 2019 Assessment & Plan (1) Infected prosthetic vascular graft: 59yo M PMH HTN, DM with neuropathy, COPD, PAD with bilat LE ischemia, h/o fem/fem bypass, h/o ax/fem bypass, admitted 07/14 for bleeding incision with sepsis, +Blood cx (Gram + cocci and staph), developed L groin incision infection with MRSA. Medicine consulted for chronic medical issues and glucose management. Streptococcal sepsis, resolved: -S/P femoral bypass revision and insertion of wound VAC to left groin (07/21/19) secondary to recent MRSA sepsis and infection of graft -Infectious disease consulted, appreciate recs -Continue vancomycin, length to be determined -Continue to follow wound and blood cultures -Routine postop care per vascular Post-op anemia and hematoma -2U PRBCs administered 07/23/19 due to 2 point drop in Hb (10.6-->8.6) -Dr. Alanis made aware of bleeding from incision, directed to apply pressure and monitor. -Cont to monitor T2DM -On multiple home agents. A1C in June was 8.3. -Is tolerating T2DM diet. -Glycemic consult placed; pharmacy managing further recommendations. Adjusted ISS on 07/23. -Continue to hold home agents - Metformin, Toujeo, Trulicity and Jardiance -Continue home Neurontin for neuropathic pain COPD (chronic obstructive pulmonary disease) -COPD without acute exacerbation. Adequate oxygenation on room air. No wheeze. -Continue Combivent -Continue Albuterol PRN -Continue to monitor Hypertension: -Blood pressure stable at present -Continue lisinopril 40 mg JAMES on CPAP: -States he is compliant with CPAP at home. 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 Negrete. In agreement with the documented findings as noted in the resident documentation with any exceptions or additions as noted here. Complaining of aching pain at graft sites with increased pain at left abdomen concommitant wth new hematoma formation at site with oozing bleeding from surgical site which improved with pressure. On examination, S1/S2 nl RRR no MCG. Decreased bibasilar breath sounds. TTP over apparent hematoma formation at site with oozing bleed from same site onset following initial ambulation and improving with pressure. Infected prosthetic vascular graft s/p revision and augmentation - infectious disease consultation - continue vancomycin. Cultures pending (48hrs evening of 07/23) Acute postoperative bleeding - pressure applied and bleeding ceased. Anemia mgmt as below Anemia, postoperative - transfusion 2UPRBC for procedural blood loss and postoperative bleeding. Trend CBC post and then in AM, sooner if needed. Anticoagulation - heparin drip transitioning to warfarin, per surgical management DMII, poorly controlled, with neuropathy - labile glucose today, though generally < 200. Narrow glycemic control (pharmacy consult placed by primary team). Expected return to home medications on discharge. Continue gabapentin Else see resident documentation as noted. Subjective Pt reports continued lower abdominal and leg pain. Notes he has not wanted to participate with ambulation due to pain and concern for groin bleeding. After initial examination, pt did ambulate with nursing and it was noted that he began to bleed from the L abdominal incision. Dr. Alanis notified. Review of Systems Constitutional: + body aches, + malaise and + weakness; no fever and no chills Respiratory: no cough, no dyspnea, no dyspnea on exertion and no sputum production Cardiovascular: no chest pain and no radiating jaw, neck or arm pain Gastrointestinal: + abdominal pain and + bloating Musculoskeletal: + joint pain, + limited range of motion and + myalgia Psychiatric: + irritability Hematologic / Lymphatic: + easy bleeding Physical Exam Constitutional: WD/WN, vitals as above + ill appearing (chronically), + obese and comfortable; no acute distress Eyes: PERRL, conjunctivae normal, anicteric sclerae ENMT: Mouth: + poor dentition; no TMJ abnormality Neck: trachea midline, no thyromegaly normal visual inspection, trachea midline and + facial hair; neck nontender Respiratory: normal respiratory effort, lungs clear to auscultation normal respiratory effort and normal percussion; no respiratory distress and does not use accessory muscles Auscultation: lungs clear to auscultation bilaterally Cardiovascular: RRR, no murmur, no edema Rate/Rhythm: regular rate, regular rhythm and + tachycardic Heart Sounds: normal S1 and normal S2; no gallop, no murmur and no cardiac rub Vessels: normal peripheral pulses and posterior tibial pulses present (left present to doppler); no JVD Extremities: no edema Gastrointestinal (Abdomen): normal bowel sounds, soft, nontender, no hepatosplenomegaly Inspection/Auscultation: abdomen normal to inspection, + abdomen distended and normal bowel sounds Percussion/Palpation: abdomen soft; abdomen nontender Hard hematoma noted in LL abdomen Musculoskeletal: no cyanosis or clubbing, extremities motor strength 5/5 Spine: thoracic spine normal to inspection and lumbar spine normal to inspection; no pain with cervical ROM and no cervical spinal tenderness Extremities: strength 5/5 throughout Skin: no rashes, warm and dry normal turgor and + wound (Dressing intact left groin) Neurologic: patellar DTR's 2+ bilat, sensation intact CN's II-XI intact bilaterally and moves all extremities; no focal motor deficits Motor/Sensory: normal movement and no sensory deficit Psychiatric: A+Ox3, euthymic affect Orientation: alert, oriented x 3 and cooperative Affect: + anxious affect, + irritable affect and + angry affect Lymphatic: no cervical or axillary lymphadenopathy no inguinal lymphadenopathy Results & Data Vital Signs (Past 12 Hours) Vital Signs Temp Pulse Resp BP BP Pulse Ox Pulse Ox 07/23/19 07:50 97.9 F 92 H 16 135/64 92 07/23/19 04:38 97.3 F L 92 H 22 110/63 92 07/23/19 02:00 95 H 16 110/64 93 07/23/19 01:00 92 H 17 103/62 92 07/23/19 00:00 93 H 16 100/63 93 07/22/19 23:59 93 07/22/19 23:15 97.7 F 91 H 20 93/56 L 97 Laboratory Results 07/23/19 07/23/19 07/23/19 Range/Units 07:58 06:29 06:29 WBC (4.8-10.8) K/uL RBC (4.7-6.1) M/uL Hgb (14.0-18.0) g/dL Hct (42-52) % MCV (80-100) fL MCH (25-34) pg MCHC (32-36) g/dL RDW Std Deviation (36.4-46.3) fL RDW Coeff of Maira (11.5-14.5) % Plt Count (130-400) K/uL MPV (7.4-10.4) fL Immature Gran % (Auto) % Neut % (Auto) % Lymph % (Auto) % Hodgeman % (Auto) % Eos % (Auto) % Baso % (Auto) % Immature Gran # (Auto) (0.00-0.02) K/uL Neut # (Auto) (1.4-6.5) K/uL Lymph # (Auto) (1.2-3.4) K/uL Hodgeman # (Auto) (0.11-0.59) K/uL Eos # (Auto) (0-0.5) K/uL Baso # (Auto) (0-0.2) K/uL APTT 62.8 H* (21.0-31.0) Seconds PTT Ratio 2.3 Sodium 142 (136-145) mmol/L Potassium 3.4 L D (3.5-5.1) mmol/L Chloride 112 H (98-107) mmol/L Carbon Dioxide 26 (21-32) mmol/L Anion Gap 4.0 (3-11) BUN 6 L (7-18) mg/dl Creatinine 0.48 L (0.6-1.4) mg/dl Est Cr Clr Drug Dosing 203.1 ml/min Est GFR ( Amer) 140.8 Est GFR (Non-Af Amer) 121.5 BUN/Creatinine Ratio 11.5 (10-20) Glucose 158 H (70-99) mg/dl POC Glucose 206 H (70-99) Calcium 7.6 L (8.5-10.1) mg/dl Blood Type Antibody Screen Crossmatch 07/23/19 07/23/19 07/23/19 Range/Units 06:29 04:21 00:08 WBC 8.86 (4.8-10.8) K/uL RBC 2.64 L (4.7-6.1) M/uL Hgb 8.6 L (14.0-18.0) g/dL Hct 25.4 L (42-52) % MCV 96.2 (80-100) fL MCH 32.6 (25-34) pg MCHC 33.9 (32-36) g/dL RDW Std Deviation 54.8 H (36.4-46.3) fL RDW Coeff of Maira 15.8 H (11.5-14.5) % Plt Count 190 (130-400) K/uL MPV 8.4 (7.4-10.4) fL Immature Gran % (Auto) 0.2 % Neut % (Auto) 68.0 % Lymph % (Auto) 23.6 % Hodgeman % (Auto) 7.3 % Eos % (Auto) 0.6 % Baso % (Auto) 0.3 % Immature Gran # (Auto) 0.02 (0.00-0.02) K/uL Neut # (Auto) 6.02 (1.4-6.5) K/uL Lymph # (Auto) 2.09 (1.2-3.4) K/uL Hodgeman # (Auto) 0.65 H (0.11-0.59) K/uL Eos # (Auto) 0.05 (0-0.5) K/uL Baso # (Auto) 0.03 (0-0.2) K/uL APTT (21.0-31.0) Seconds PTT Ratio Sodium (136-145) mmol/L Potassium (3.5-5.1) mmol/L Chloride (98-107) mmol/L Carbon Dioxide (21-32) mmol/L Anion Gap (3-11) BUN (7-18) mg/dl Creatinine (0.6-1.4) mg/dl Est Cr Clr Drug Dosing ml/min Est GFR ( Amer) Est GFR (Non-Af Amer) BUN/Creatinine Ratio (10-20) Glucose (70-99) mg/dl POC Glucose 166 H 129 H (70-99) Calcium (8.5-10.1) mg/dl Blood Type Antibody Screen Crossmatch 07/22/19 07/22/19 07/22/19 Range/Units 20:27 16:43 16:09 WBC (4.8-10.8) K/uL RBC (4.7-6.1) M/uL Hgb (14.0-18.0) g/dL Hct (42-52) % MCV (80-100) fL MCH (25-34) pg MCHC (32-36) g/dL RDW Std Deviation (36.4-46.3) fL RDW Coeff of Maira (11.5-14.5) % Plt Count (130-400) K/uL MPV (7.4-10.4) fL Immature Gran % (Auto) % Neut % (Auto) % Lymph % (Auto) % Hodgeman % (Auto) % Eos % (Auto) % Baso % (Auto) % Immature Gran # (Auto) (0.00-0.02) K/uL Neut # (Auto) (1.4-6.5) K/uL Lymph # (Auto) (1.2-3.4) K/uL Hodgeman # (Auto) (0.11-0.59) K/uL Eos # (Auto) (0-0.5) K/uL Baso # (Auto) (0-0.2) K/uL APTT 48.3 H* (21.0-31.0) Seconds PTT Ratio 1.8 Sodium (136-145) mmol/L Potassium (3.5-5.1) mmol/L Chloride (98-107) mmol/L Carbon Dioxide (21-32) mmol/L Anion Gap (3-11) BUN (7-18) mg/dl Creatinine (0.6-1.4) mg/dl Est Cr Clr Drug Dosing ml/min Est GFR ( Amer) Est GFR (Non-Af Amer) BUN/Creatinine Ratio (10-20) Glucose (70-99) mg/dl POC Glucose 216 H 212 H (70-99) Calcium (8.5-10.1) mg/dl Blood Type Antibody Screen Crossmatch 07/22/19 07/21/19 Range/Units 11:15 05:30 WBC (4.8-10.8) K/uL RBC (4.7-6.1) M/uL Hgb (14.0-18.0) g/dL Hct (42-52) % MCV (80-100) fL MCH (25-34) pg MCHC (32-36) g/dL RDW Std Deviation (36.4-46.3) fL RDW Coeff of Maira (11.5-14.5) % Plt Count (130-400) K/uL MPV (7.4-10.4) fL Immature Gran % (Auto) % Neut % (Auto) % Lymph % (Auto) % Hodgeman % (Auto) % Eos % (Auto) % Baso % (Auto) % Immature Gran # (Auto) (0.00-0.02) K/uL Neut # (Auto) (1.4-6.5) K/uL Lymph # (Auto) (1.2-3.4) K/uL Hodgeman # (Auto) (0.11-0.59) K/uL Eos # (Auto) (0-0.5) K/uL Baso # (Auto) (0-0.2) K/uL APTT (21.0-31.0) Seconds PTT Ratio Sodium (136-145) mmol/L Potassium (3.5-5.1) mmol/L Chloride (98-107) mmol/L Carbon Dioxide (21-32) mmol/L Anion Gap (3-11) BUN (7-18) mg/dl Creatinine (0.6-1.4) mg/dl Est Cr Clr Drug Dosing ml/min Est GFR ( Amer) Est GFR (Non-Af Amer) BUN/Creatinine Ratio (10-20) Glucose (70-99) mg/dl POC Glucose 226 H (70-99) Calcium (8.5-10.1) mg/dl Blood Type O Positive Antibody Screen NEGATIVE Crossmatch See Detail Medications Administered Current Inpatient Medications Acetaminophen (Tylenol) 650 mg PO Q4H PRN PRN Reason: Pain or Fever Stop: 08/11/19 15:32 Hydrocodone Bitart/Acetaminophen (Jewett 10/325) 1 tab PO QID PRN PRN Reason: Pain Stop: 07/26/19 15:38 Last Admin: 07/23/19 07:27 Dose: 1 tab Documented by: Albuterol (Ventolin Hfa) 2 puffs INH QID PRN PRN Reason: Shortness Of Breath Stop: 08/11/19 15:38 Albuterol (Combivent Respimat) 2 puffs INH QID [facility] Stop: 08/11/19 20:59 Last Admin: 07/23/19 07:13 Dose: 2 puffs Documented by: Aspirin (Ecotrin) 325 mg PO QAM [facility] Stop: 08/12/19 08:59 Last Admin: 07/23/19 08:14 Dose: 325 mg Documented by: Dextrose (Dextrose 50%) 25 - 50 ml IV UD PRN; Protocol PRN Reason: Hypoglycemia Protocol Stop: 08/17/19 10:44 Docusate Sodium (Colace) 100 mg PO BID [facility] Stop: 08/17/19 11:14 Last Admin: 07/23/19 08:14 Dose: 100 mg Documented by: Gabapentin (Neurontin) 800 mg PO TID [facility] Stop: 08/14/19 20:59 Last Admin: 07/23/19 08:13 Dose: 800 mg Documented by: Glucagon (Glucagen) 1 mg IM UD PRN; Protocol PRN Reason: Hypoglycemia Protocol Stop: 08/17/19 10:44 Glucose (Glucose 40%) 15 - 30 gm PO UD PRN; Protocol PRN Reason: Hypoglycemia Protocol Stop: 08/17/19 10:44 Glucose (Dex4 Glucose) 4 - 8 tabs PO UD PRN; Protocol PRN Reason: Hypoglycemia Protocol Stop: 08/17/19 10:44 Vancomycin HCl 2,000 mg/ (Sodium Chloride) 540 mls @ 200 mls/hr IV Q10H [facility]; Protocol Stop: 07/27/19 18:29 Last Infusion: 07/23/19 08:08 Dose: Infused Documented by: Heparin Sodium/Dextrose (Heparin Sodium/Dextrose) 25,000 units in 500 mls @ 30 mls/hr IV .[id number] [facility]; Protocol Stop: 08/21/19 10:14 Last Admin: 07/23/19 07:08 Dose: 1,500 units/hr, 30 mls/hr Documented by: Sodium Chloride (Nss) 250 mls @ 15 mls/hr IV .[id number] PRN PRN Reason: For Transfusion Stop: 08/22/19 09:56 Insulin Aspart (Novolog Flexpen) 0 units SC ACHS [facility] Stop: 08/22/19 11:29 Lisinopril (Zestril) 40 mg PO QAM [facility] Stop: 08/12/19 08:59 Last Admin: 07/23/19 08:15 Dose: 40 mg Documented by: Metformin HCl (Glucophage) 1,000 mg PO BIDM [facility] Stop: 08/21/19 16:59 Last Admin: 07/23/19 08:14 Dose: 1,000 mg Documented by: Miscellaneous (Order Awaiting Action) 1 ea N/A QS [facility] Stop: 08/12/19 00:00 Last Admin: 07/22/19 16:08 Dose: Not Given Documented by: Miscellaneous (Order Awaiting Action) 1 ea N/A QS [facility] Stop: 08/12/19 00:00 Last Admin: 07/22/19 16:08 Dose: Not Given Documented by: Miscellaneous (Order Awaiting Action) 1 ea N/A QS [facility] Stop: 08/12/19 00:00 Last Admin: 07/22/19 16:08 Dose: Not Given Documented by: Miscellaneous (Carbohydrates For Hypoglycemia) 15 - 30 gm PO UD PRN PRN Reason: Hypoglycemia Treatment Stop: 08/17/19 10:44 Miscellaneous Information (Consult) 1 ea N/A UD PRN PRN Reason: Consult Stop: 08/13/19 17:33 Last Admin: 07/21/19 13:30 Dose: 1 ea Documented by: Miscellaneous Information (Consult Glycemic Management Pharmacy) 1 ea N/A UD PRN PRN Reason: Consult Stop: 08/20/19 15:59 Morphine Sulfate (Morphine Sulfate) 2 mg IV Q4 PRN PRN Reason: Pain Stop: 07/28/19 22:54 Last Admin: 07/23/19 10:33 Dose: 2 mg Documented by: Morphine Sulfate (Morphine Sulfate) 4 mg IV Q4 PRN PRN Reason: Pain Stop: 07/28/19 23:01 Last Admin: 07/17/19 03:10 Dose: 4 mg Documented by: Nitroglycerin (Nitrostat) 0.4 mg SL UD PRN PRN Reason: Chest Pain Stop: 08/11/19 15:32 Polyethylene Glycol (Miralax Powder Packet) 17 gm PO DAILY PRN PRN Reason: Constipation Stop: 08/17/19 11:02 Warfarin Sodium (Coumadin) 10 mg PO DAILY@1600 [facility] Stop: 07/23/19 16:01 Last Admin: 07/22/19 16:04 Dose: 10 mg Documented by: Zolpidem Tartrate (Ambien) 5 mg PO HS PRN PRN Reason: Sleep Stop: 08/20/19 00:00 Last Admin: 07/21/19 00:44 Dose: 5 mg Documented by: PG Care Time/CCT Total # of Minutes Spent Total Time Spent with Patient: Total time spent is greater than 50% in coordination of care (as documented) at patient's floor/unit and/or counseling patient: Resident Activity Tracking Resident Involvement: Resident Care Provided Care Provided: Adult Hospital Medicine (1) Streptococcal sepsis Sepsis acute organ dysfunction status: unspecified Qualified Code(s): A40.9 - Streptococcal sepsis, unspecified (2) Diabetes Diabetes mellitus complication detail: with polyneuropathy Diabetes mellitus complication status: with neurologic complications Diabetes mellitus correction insulin use: with long term care social worker use Diabetes mellitus type: type 2 Qualified Code(s): E11.42 - Type 2 diabetes mellitus with diabetic polyneuropathy; Z79.4 - keno terminal operator (current) use of insulin (3) COPD (chronic obstructive pulmonary disease) COPD type: unspecified COPD Qualified Code(s): J44.9 - Chronic obstructive pulmonary disease, unspecified (4) Hypertension Hypertension type: essential hypertension Qualified Code(s): I10 - Essential (primary) hypertension
[2019-07-23] MEDS ORDERED: SODIUM CHLORIDE 0.9% 250 ML IV PRN (09:57)
--- NOTE | 2019-07-23 10:03 | Surgery Progress Note ---
Date of Service July 23, 2019 Assessment & Plan (1) Infected prosthetic vascular graft: He is doing well at this time post op from removal of his left groin infected graft. Increase activity at this time. (2) Acute blood loss as cause of postoperative anemia: Will transfuse 2 units PRBC's today. Subjective Patient complains of left leg discomfort and right hip pain. No pain in left foot Physical Exam Constitutional: WD/WN, vitals as above no acute distress Cardiovascular: Rate/Rhythm: regular rate and regular rhythm Vessels: posterior tibial pulses present (left present to doppler) Gastrointestinal (Abdomen): Inspection/Auscultation: abdomen normal to inspection; abdomen not distended Percussion/Palpation: abdomen soft Skin: dressings all intact vac working well Neurologic: Motor/Sensory: normal movement and no sensory deficit Psychiatric: Orientation: alert and oriented x 3 Results & Data Vital Signs (Past 12 Hours) Vital Signs Temp Pulse Resp BP BP Pulse Ox Pulse Ox 07/23/19 07:50 36.6 C 92 H 16 135/64 92 07/23/19 04:38 36.3 C L 92 H 22 110/63 92 07/23/19 02:00 95 H 16 110/64 93 07/23/19 01:00 92 H 17 103/62 92 07/23/19 00:00 93 H 16 100/63 93 07/22/19 23:59 93 07/22/19 23:15 36.5 C 91 H 20 93/56 L 97
[2019-07-23] MEDS ORDERED: INSULIN GLARGINE SOLOSTAR 100 UNITS/ML 3 ML PEN SC STA (11:58)
[2019-07-23] MEDS: WARFARIN SOD 10 MG TAB PO SCH (16:36)
[2019-07-23] MEDS ORDERED: SODIUM CHLORIDE 0.9% 1000ML 1,000 ML IV ONE (16:43)
[2019-07-23 18:48] LABS: Hematocrit (blood only) 29.6 % (42-52); Hemoglobin 9.7 g/dL (14.0-18.0)
[2019-07-23] MEDS: SODIUM CHLORIDE 0.9% 1000ML 1,000 ML IV SCH (19:47)
[2019-07-23] MEDS ORDERED: INSULIN GLARGINE SOLOSTAR 100 UNITS/ML 3 ML PEN SC ONE (21:00)
[2019-07-24] MEDS ORDERED: INSULIN ASPART 100 UNITS/ML 3 ML PEN SC SCH
[2019-07-24] MEDS: SODIUM CHLORIDE 0.9% 1000ML 1,000 ML IV SCH ×4 (01:04→20:09)
[2019-07-24] MEDS: VANCOMYCIN HCL 2,000 MG in SODIUM CHLORIDE 0.9% 500 ML IV SCH ×3 (02:28→21:32)
[2019-07-24] MEDS: HYDROCODONE/ACETAMINOPHEN 10/325 TAB PO PRN ×3 (05:15→19:36)
[2019-07-24 06:50] LABS: Basophils # (auto) 0.04 K/uL (0-0.2); Basophils % (auto) 0.5 %; Eosinophils # (auto) 0.14 K/uL (0-0.5); Eosinophils % (auto) 1.8 %; Hemoglobin 9.7 g/dL (14.0-18.0); Immature Granulocytes # (auto) 0.04 K/uL (0.00-0.02); Immature Granulocytes % (auto) 0.5 %; Lymphocytes # (auto) 1.86 K/uL (1.2-3.4); Lymphocytes % (auto) 24.4 %; Mean Corpuscular Hemoglobin 31.4 pg (25-34); Mean Corpuscular Hgb Conc 33.4 g/dL (32-36); Mean Corpuscular Volume 93.9 fL (80-100); Mean Platelet Volume 8.4 fL (7.4-10.4); Monocytes % (auto) 9.2 %; Neutrophils # (auto) 4.85 K/uL (1.4-6.5); Neutrophils % (auto) 63.6 %; Platelet Count 170 K/uL (130-400); RDW Coefficient of Variation 17.3 % (11.5-14.5); RDW Standard Deviation 58.8 fL (36.4-46.3); Red Blood Count 3.09 M/uL (4.7-6.1); White Blood Count 7.63 K/uL (4.8-10.8)
[2019-07-24 07:04] LABS: INR 3.2 (0.9-1.1); Prothrombin Time 30.3 Seconds (9.0-12.0)
[2019-07-24 07:23] LABS: BUN Creatinine Ratio 9.9 (10-20); Calcium 7.8 mg/dl (8.5-10.1); Creatinine Clr Calc Pharmacy 203.1 ml/min; Est GFR (African American) 140.8; Est GFR (Non-African American) 121.5; Potassium 3.5 mmol/L (3.5-5.1)
[2019-07-24 07:59] LABS: Partial Thromboplastin Ratio 3.1
[2019-07-24] MEDS: IPRATROPIUM BROMIDE/ALBUTEROL respimat INH INH SCH ×4 (08:08→20:10)
[2019-07-24] MEDS: ASPIRIN 325 MG ECTAB PO SCH (08:08)
[2019-07-24] MEDS: lisinopriL 40 MG TAB PO SCH (08:08)
[2019-07-24] MEDS: METFORMIN HCL 500 MG TAB PO SCH ×2 (08:08→17:13)
[2019-07-24] MEDS: GABAPENTIN 800 MG TAB PO SCH ×3 (08:08→20:10)
[2019-07-24] MEDS: EMPAGLIFLOZIN 10 MG PO SCH (08:09)
[2019-07-24 08:12] LABS: Partial Thromboplastin Time 84.8 Seconds (21.0-31.0)
--- NOTE | 2019-07-24 08:15 | Anesthesiology Progress Note ---
Date of Service July 24, 2019 Anesthesia Post Procedure Vital Signs Vital Signs: Temp Pulse Pulse Resp BP BP BP 07/24/19 08:00 36.6 C 76 20 118/66 07/24/19 03:53 36.8 C 76 20 134/69 07/24/19 02:28 73 17 136/74 07/23/19 23:59 07/23/19 23:02 36.6 C 81 18 100/61 07/23/19 19:42 36.3 C L 85 18 113/67 07/23/19 18:22 107/69 07/23/19 16:53 36.5 C 86 16 102/62 07/23/19 16:32 36.5 C 81 16 88/55 L 07/23/19 16:00 36.5 C 79 16 92/56 L 07/23/19 15:00 36.6 C 83 16 104/63 07/23/19 14:30 36.5 C 87 16 96/60 L 07/23/19 14:27 85 18 111/66 07/23/19 14:15 36.3 C L 91 H 18 102/62 07/23/19 14:00 36.6 C 86 18 94/59 L 07/23/19 13:50 89 18 96/60 L 07/23/19 13:00 36.2 C L 18 109/65 07/23/19 12:08 18 101/63 07/23/19 11:30 18 94/61 L 07/23/19 11:15 20 97/61 L 07/23/19 11:10 36.3 C L 18 102/65 07/23/19 11:06 36.3 C L 99 H 18 104/63 Pulse Ox Pulse Ox 07/24/19 08:00 93 07/24/19 03:53 94 07/24/19 02:28 94 07/23/19 23:59 97 07/23/19 23:02 96 07/23/19 19:42 96 07/23/19 18:22 07/23/19 16:53 94 07/23/19 16:32 95 07/23/19 16:00 95 07/23/19 15:00 94 07/23/19 14:30 94 07/23/19 14:27 96 07/23/19 14:15 92 10/13/19 14:00 92 07/23/19 13:50 93 07/23/19 13:00 98 07/23/19 12:08 94 07/23/19 11:30 93 07/23/19 11:15 92 07/23/19 11:10 93 07/23/19 11:06 94 Pain Intensity Left Groin: Pain Intensity: 6 Left Foot: Pain Intensity: 4 Notes Mental Status: alert / awake / arousable Patient Amnestic to Procedure: Yes Nausea / Vomiting: adequately controlled Pain: improving with treatment Airway Patency, RR, SpO2: stable & adequate BP & HR: stable & adequate (BP stable at time of seeing pt; RN stated that patient had been given a few fluid boluses for hypotension;) Hydration State: stable & adequate Anesthetic Complications: no major complications apparent Notes: Pt stated that yesterday when he got up to get in chair his left groin incision site split open. When speaking with RN they said they had paged Dr. Alanis but he did not return page. Dr. Alanis was notified verbally face to face. He stated he had spoken multiple times with RN, and MDs from floor and that he was told there was bleeding from the site not that it has opened at all. Dr. Alanis called and spoke with care providers involved.
[2019-07-24] MEDS: INSULIN ASPART 100 UNITS/ML 3 ML PEN SC SCH ×4 (08:19→20:53)
--- NOTE | 2019-07-24 08:51 | Family Medicine Progress Note ---
Date of Service July 24, 2019 Assessment & Plan (1) Infected prosthetic vascular graft: 59yo M PMH HTN, DM with neuropathy, COPD, PAD with bilat LE ischemia, h/o fem/fem bypass, h/o ax/fem bypass, admitted 07/14 for bleeding incision with sepsis, +Blood cx (Gram + cocci and staph), developed L groin incision infection with MRSA. Medicine consulted for chronic medical issues and glucose management. #Streptococcal sepsis, resolved: -S/P femoral bypass revision and insertion of wound VAC to left groin (07/21/19) secondary to recent MRSA sepsis and infection of graft -Infectious disease consulted, appreciate recs -Continue vancomycin, length to be determined -Continue to follow wound and blood cultures -Routine postop care per vascular -Wound VAC changed today #Anticoagulation Anticoagulation per vascular surgery. Patient was on a heparin GTT, started on warfarin concurrently until goal INR is achieved.Was previously on 10 mg p.o. daily, INR this morning was 3.2, warfarin decreased to 5 mg daily will reassess INR tomorrow ordered. -Continue warfarin 5 mg daily #Post-op anemia and hematoma -2U PRBCs administered 07/23/19 due to 2 point drop in Hb (10.6-->8.6) -Dr. Alanis made aware of bleeding from incision, directed to apply pressure and monitor. -Cont to monitor, hemoglobin stable at 9.7 #T2DM -On multiple home agents. A1C in June was 8.3. -Is tolerating T2DM diet. -Glycemic consult placed; pharmacy managing further recommendations. Adjusted ISS on 07/23. -Continue to hold home agents - Metformin, Toujeo, Trulicity and Jardiance -Continue home Neurontin for neuropathic pain #COPD (chronic obstructive pulmonary disease) -COPD without acute exacerbation. Adequate oxygenation on room air. No wheeze. -Continue Combivent -Continue Albuterol PRN -Continue to monitor #Hypertension: -Blood pressure stable at present -Continue lisinopril 40 mg #JAMES on CPAP: -States he is compliant with CPAP at home. Does not wish to wear it here -Monitor saturations #Insomnia -Ok to give ambien prn FENa: Type II diabetic diet Code Status: DNR/DNI DVT PPX: Heparin GTT, warfarin initiated 07/23 per vascular, vascular managing PT/OT: Consulted Dispo: PCU Houston Mark MD PGY 2, FCM This chart was completed utilizing [employer] dictation voice recognition software. Grammatical errors, random word insertions, pronoun errors, and in complete sentences are an occasional consequence of the system. Any questions or concerns about the content, text, or information contained within the body of this dictation should be addressed directly to the physician for clarification. Supervising Physician Co-Signing Physician Notes Patient seen and examined with Dr. Mark. I agree with their exam findings, review of systems, assessment and plan. I have personally reviewed the lab work and imaging from today. Patient in some deal of pain associated with his left abdomen, occurred this AM. Dr. Alanis looked at the incision, said it was intact. The patient reports a great deal of pain in left groin associated with the wound vac, says that it was excruciating when they changed it this morning. Breathing well, no chest pain, eating well. No BM for several days, difficult time using the bedpan. Exam: overweight male, NAD, lungs CTA bilaterally with some decreased breath sounds in the bases, no distress, regular S1 S2 abd soft, NT, ND, extremities are warm, left leg appears well perfused, slightly swollen compared to right leg - Acute blood loss anemia in post operative setting: Hb stable, BP stable, will continue to monitor with vascular - Constipation: bowel regimen with Miralax, unfortunately he is unable to be active with the recent surgery and wound vac, eating well for full details see resident note Subjective Patient lying in bed this morning in no acute distress. Patient reports pain is well controlled at rest, or with movement there is exacerbation of his pain. Patient is not the best spirits, he has been hospitalized for an extended period time and there is been one complication after another. I provided counseling to the patient that he is on the upswing of his hospitalization. And should continue to improve. Patient is voiding, going to the bathroom, sleeping, tolerating his diet. At present acute concerns relate to anticoagulation, and surgical site hematoma. All questions answered. Physical Exam Physical Exam: General: Middle-age male laying in bed no acute distress HEENT: Normocephalic atraumatic Neck: Normal vision inspection Cardiac: Regular rate and rhythm, I did not appreciate significant murmurs rubs or gallops, 1+ pedal edema bilaterally, negative calf tenderness that is not related to surgery, negative JVD Respiratory: Clear to auscultation bilaterally with symmetrical chest rise without significant wheezes rales or rhonchi GI: Bowel sounds present, nontender to palpation, not distended MSK: Moves extremities Skin: Surgical sites clean dry and intact otherwise warm, well perfused Neuro: Alert and oriented x4 Psych: Depressed, calm, cooperative Results & Data Vital Signs (Past 12 Hours) Vital Signs Temp Pulse Resp BP Pulse Ox Pulse Ox 07/24/19 08:00 36.6 C 76 20 118/66 93 07/24/19 03:53 36.8 C 76 20 134/69 94 07/24/19 02:28 73 17 136/74 94 07/23/19 23:59 97 07/23/19 23:02 36.6 C 81 18 100/61 96 Laboratory Results 07/24/19 07/24/19 07/24/19 Range/Units 11:56 11:24 07:23 WBC (4.8-10.8) K/uL RBC (4.7-6.1) M/uL Hgb (14.0-18.0) g/dL Hct (42-52) % MCV (80-100) fL MCH (25-34) pg MCHC (32-36) g/dL RDW Std Deviation (36.4-46.3) fL RDW Coeff of Maira (11.5-14.5) % Plt Count (130-400) K/uL MPV (7.4-10.4) fL Immature Gran % (Auto) % Neut % (Auto) % Lymph % (Auto) % Charlotte % (Auto) % Eos % (Auto) % Baso % (Auto) % Immature Gran # (Auto) (0.00-0.02) K/uL Neut # (Auto) (1.4-6.5) K/uL Lymph # (Auto) (1.2-3.4) K/uL Charlotte # (Auto) (0.11-0.59) K/uL Eos # (Auto) (0-0.5) K/uL Baso # (Auto) (0-0.2) K/uL PT (9.0-12.0) Seconds INR (0.9-1.1) APTT (21.0-31.0) Seconds PTT Ratio Sodium (136-145) mmol/L Potassium (3.5-5.1) mmol/L Chloride (98-107) mmol/L Carbon Dioxide (21-32) mmol/L Anion Gap (3-11) BUN (7-18) mg/dl Creatinine (0.6-1.4) mg/dl Est Cr Clr Drug Dosing ml/min Est GFR ( Amer) Est GFR (Non-Af Amer) BUN/Creatinine Ratio (10-20) Glucose (70-99) mg/dl POC Glucose 100 H 123 H (70-99) Calcium (8.5-10.1) mg/dl Vancomycin Trough 16.3 (See Comment) mcg/ml Crossmatch 07/24/19 07/24/19 07/24/19 Range/Units 06:32 06:32 06:32 WBC (4.8-10.8) K/uL RBC (4.7-6.1) M/uL Hgb (14.0-18.0) g/dL Hct (42-52) % MCV (80-100) fL MCH (25-34) pg MCHC (32-36) g/dL RDW Std Deviation (36.4-46.3) fL RDW Coeff of Maira (11.5-14.5) % Plt Count (130-400) K/uL MPV (7.4-10.4) fL Immature Gran % (Auto) % Neut % (Auto) % Lymph % (Auto) % Charlotte % (Auto) % Eos % (Auto) % Baso % (Auto) % Immature Gran # (Auto) (0.00-0.02) K/uL Neut # (Auto) (1.4-6.5) K/uL Lymph # (Auto) (1.2-3.4) K/uL Charlotte # (Auto) (0.11-0.59) K/uL Eos # (Auto) (0-0.5) K/uL Baso # (Auto) (0-0.2) K/uL PT 30.3 H (9.0-12.0) Seconds INR 3.2 H (0.9-1.1) APTT 84.8 H* (21.0-31.0) Seconds PTT Ratio 3.1 Sodium 144 (136-145) mmol/L Potassium 3.5 (3.5-5.1) mmol/L Chloride 113 H (98-107) mmol/L Carbon Dioxide 26 (21-32) mmol/L Anion Gap 5.0 (3-11) BUN 5 L (7-18) mg/dl Creatinine 0.48 L (0.6-1.4) mg/dl Est Cr Clr Drug Dosing 203.1 ml/min Est GFR ( Amer) 140.8 Est GFR (Non-Af Amer) 121.5 BUN/Creatinine Ratio 9.9 L (10-20) Glucose 118 H (70-99) mg/dl POC Glucose (70-99) Calcium 7.8 L (8.5-10.1) mg/dl Vancomycin Trough (See Comment) mcg/ml Crossmatch 07/24/19 07/24/19 07/23/19 Range/Units 06:32 00:11 20:38 WBC 7.63 (4.8-10.8) K/uL RBC 3.09 L (4.7-6.1) M/uL Hgb 9.7 L (14.0-18.0) g/dL Hct 29.0 L (42-52) % MCV 93.9 (80-100) fL MCH 31.4 (25-34) pg MCHC 33.4 (32-36) g/dL RDW Std Deviation 58.8 H (36.4-46.3) fL RDW Coeff of Maira 17.3 H (11.5-14.5) % Plt Count 170 (130-400) K/uL MPV 8.4 (7.4-10.4) fL Immature Gran % (Auto) 0.5 % Neut % (Auto) 63.6 % Lymph % (Auto) 24.4 % Charlotte % (Auto) 9.2 % Eos % (Auto) 1.8 % Baso % (Auto) 0.5 % Immature Gran # (Auto) 0.04 H (0.00-0.02) K/uL Neut # (Auto) 4.85 (1.4-6.5) K/uL Lymph # (Auto) 1.86 (1.2-3.4) K/uL Charlotte # (Auto) 0.70 H (0.11-0.59) K/uL Eos # (Auto) 0.14 (0-0.5) K/uL Baso # (Auto) 0.04 (0-0.2) K/uL PT (9.0-12.0) Seconds INR (0.9-1.1) APTT (21.0-31.0) Seconds PTT Ratio Sodium (136-145) mmol/L Potassium (3.5-5.1) mmol/L Chloride (98-107) mmol/L Carbon Dioxide (21-32) mmol/L Anion Gap (3-11) BUN (7-18) mg/dl Creatinine (0.6-1.4) mg/dl Est Cr Clr Drug Dosing ml/min Est GFR ( Amer) Est GFR (Non-Af Amer) BUN/Creatinine Ratio (10-20) Glucose (70-99) mg/dl POC Glucose 137 H 152 H (70-99) Calcium (8.5-10.1) mg/dl Vancomycin Trough (See Comment) mcg/ml Crossmatch 07/23/19 07/23/19 07/21/19 Range/Units 18:37 16:23 05:30 WBC (4.8-10.8) K/uL RBC (4.7-6.1) M/uL Hgb 9.7 L (14.0-18.0) g/dL Hct 29.6 L (42-52) % MCV (80-100) fL MCH (25-34) pg MCHC (32-36) g/dL RDW Std Deviation (36.4-46.3) fL RDW Coeff of Maira (11.5-14.5) % Plt Count (130-400) K/uL MPV (7.4-10.4) fL Immature Gran % (Auto) % Neut % (Auto) % Lymph % (Auto) % Charlotte % (Auto) % Eos % (Auto) % Baso % (Auto) % Immature Gran # (Auto) (0.00-0.02) K/uL Neut # (Auto) (1.4-6.5) K/uL Lymph # (Auto) (1.2-3.4) K/uL Charlotte # (Auto) (0.11-0.59) K/uL Eos # (Auto) (0-0.5) K/uL Baso # (Auto) (0-0.2) K/uL PT (9.0-12.0) Seconds INR (0.9-1.1) APTT (21.0-31.0) Seconds PTT Ratio Sodium (136-145) mmol/L Potassium (3.5-5.1) mmol/L Chloride (98-107) mmol/L Carbon Dioxide (21-32) mmol/L Anion Gap (3-11) BUN (7-18) mg/dl Creatinine (0.6-1.4) mg/dl Est Cr Clr Drug Dosing ml/min Est GFR ( Amer) Est GFR (Non-Af Amer) BUN/Creatinine Ratio (10-20) Glucose (70-99) mg/dl POC Glucose 130 H (70-99) Calcium (8.5-10.1) mg/dl Vancomycin Trough (See Comment) mcg/ml Crossmatch See Detail Medications Administered Current Inpatient Medications Acetaminophen (Tylenol) 650 mg PO Q4H PRN PRN Reason: Pain or Fever Stop: 08/11/19 15:32 Hydrocodone Bitart/Acetaminophen (Philo 10/325) 1 tab PO QID PRN PRN Reason: Pain Stop: 07/26/19 15:38 Last Admin: 07/24/19 11:00 Dose: 1 tab Documented by: Albuterol (Ventolin Hfa) 2 puffs INH QID PRN PRN Reason: Shortness Of Breath Stop: 08/11/19 15:38 Albuterol (Combivent Respimat) 2 puffs INH QID RAFA Stop: 08/11/19 20:59 Last Admin: 07/24/19 13:47 Dose: 2 puffs Documented by: Aspirin (Ecotrin) 325 mg PO QAM [facility] Stop: 08/12/19 08:59 Last Admin: 07/24/19 08:08 Dose: 325 mg Documented by: Dextrose (Dextrose 50%) 25 - 50 ml IV UD PRN; Protocol PRN Reason: Hypoglycemia Protocol Stop: 08/17/19 10:44 Docusate Sodium (Colace) 100 mg PO BID [facility] Stop: 08/17/19 11:14 Last Admin: 07/24/19 09:47 Dose: 100 mg Documented by: Empagliflozin (Jardiance) 1 ea PO DAILY [facility] Stop: 08/23/19 08:59 Last Admin: 07/24/19 08:09 Dose: 1 ea Documented by: Gabapentin (Neurontin) 800 mg PO TID [facility] Stop: 08/14/19 20:59 Last Admin: 07/24/19 13:47 Dose: 800 mg Documented by: Glucagon (Glucagen) 1 mg IM UD PRN; Protocol PRN Reason: Hypoglycemia Protocol Stop: 08/17/19 10:44 Glucose (Glucose 40%) 15 - 30 gm PO UD PRN; Protocol PRN Reason: Hypoglycemia Protocol Stop: 08/17/19 10:44 Glucose (Dex4 Glucose) 4 - 8 tabs PO UD PRN; Protocol PRN Reason: Hypoglycemia Protocol Stop: 08/17/19 10:44 Vancomycin HCl 2,000 mg/ (Sodium Chloride) 540 mls @ 200 mls/hr IV Q10H RAFA; Protocol Stop: 07/27/19 18:29 Last Admin: 07/24/19 13:53 Dose: 200 mls/hr Documented by: Heparin Sodium/Dextrose (Heparin Sodium/Dextrose) 25,000 units in 500 mls @ 27 mls/hr IV .[id number] RAFA; Protocol Stop: 08/21/19 10:14 Last Admin: 07/24/19 13:47 Dose: 1,350 units/hr, 27 mls/hr Documented by: Sodium Chloride (Nss) 250 mls @ 15 mls/hr IV .[id number] PRN PRN Reason: For Transfusion Stop: 08/22/19 09:56 Sodium Chloride (Nss 1000ml) 1,000 mls @ 200 mls/hr IV .Q5H RAFA Stop: 08/22/19 18:59 Last Infusion: 07/24/19 13:59 Dose: 0 mls/hr Documented by: Insulin Aspart (Novolog Flexpen) 0 units SC ACHS [facility] Stop: 08/22/19 11:29 Last Admin: 07/24/19 13:47 Dose: 3 units Documented by: Insulin Glargine (Lantus Solostar Pen) 0 units SC TODAY@1630 ONE; Protocol Stop: 07/24/19 16:31 Lisinopril (Zestril) 40 mg PO QAM [facility] Stop: 08/12/19 08:59 Last Admin: 07/24/19 08:08 Dose: 40 mg Documented by: Metformin HCl (Glucophage) 1,000 mg PO BIDM [facility] Stop: 08/21/19 16:59 Last Admin: 07/24/19 08:08 Dose: 1,000 mg Documented by: Miscellaneous (Carbohydrates For Hypoglycemia) 15 - 30 gm PO UD PRN PRN Reason: Hypoglycemia Treatment Stop: 08/17/19 10:44 Miscellaneous Information (Consult) 1 ea N/A UD PRN PRN Reason: Consult Stop: 08/13/19 17:33 Last Admin: 07/21/19 13:30 Dose: 1 ea Documented by: Miscellaneous Information (Consult Glycemic Management Pharmacy) 1 ea N/A UD PRN PRN Reason: Consult Stop: 08/20/19 15:59 Morphine Sulfate (Morphine Sulfate) 2 mg IV Q2HWA PRN PRN Reason: Pain Stop: 07/28/19 22:54 Morphine Sulfate (Morphine Sulfate) 4 mg IV Q2HWA PRN PRN Reason: Pain Stop: 07/28/19 23:01 Last Admin: 07/24/19 13:41 Dose: 4 mg Documented by: Nitroglycerin (Nitrostat) 0.4 mg SL UD PRN PRN Reason: Chest Pain Stop: 08/11/19 15:32 Polyethylene Glycol (Miralax Powder Packet) 17 gm PO DAILY PRN PRN Reason: Constipation Stop: 08/17/19 11:02 Warfarin Sodium (Coumadin) 5 mg PO DAILY@1600 [facility] Stop: 08/23/19 15:59 Zolpidem Tartrate (Ambien) 5 mg PO HS PRN PRN Reason: Sleep Stop: 08/20/19 00:00 Last Admin: 07/21/19 00:44 Dose: 5 mg Documented by: PG Care Time/CCT Total # of Minutes Spent Total Time Spent with Patient: Total time spent is greater than 50% in coordination of care (as documented) at patient's floor/unit and/or counseling patient: Resident Activity Tracking Resident Involvement: Resident Care Provided Care Provided: Adult Hospital Medicine
[2019-07-24] MEDS: DOCUSATE SODIUM 100 MG CAP PO SCH ×2 (09:47→21:31)
[2019-07-24] MEDS: MoRPHine SULFATE 2 MG/ML CARP IV PRN ×4 (09:47→17:10)
--- NOTE | 2019-07-24 10:44 | Surgery Progress Note ---
Date of Service July 24, 2019 Assessment & Plan (1) Infected prosthetic vascular graft: He is overall doing well at this time post op from removal of his left groin infected graft. Vac changed today, required morphine d/t pain. wound improving. (2) Acute blood loss as cause of postoperative anemia: Hgb stable Subjective 59 yo m POD #3 after removal of L groin bpg and revision of ax bifem bypass and L fem to post tib bypass using bovine grafts and with L groin wound vac placement, seen in f/u today. Pt states having significant pain. Pt admits fatigue. Denies any other new complaints. Review of Systems Review of Systems: All systems reviewed & are unremarkable except as noted in HPI & below Physical Exam Constitutional: WD/WN, vitals as above + ill appearing (chronically); no acute distress Respiratory: normal respiratory effort, lungs clear to auscultation Cardiovascular: Rate/Rhythm: regular rate and regular rhythm Vessels: + abnormal peripheral pulses (dopplerable) Gastrointestinal (Abdomen): Inspection/Auscultation: abdomen normal to inspection and normal bowel sounds Percussion/Palpation: abdomen nontender Musculoskeletal: Extremities: strength 5/5 throughout Skin: + wound (multiple surgical wounds noted, all closed except L groin vac, minimal blee) Psychiatric: Orientation: alert and oriented x 3 Affect: + anxious affect, + irritable affect and + angry affect Results & Data Vital Signs (Past 12 Hours) Vital Signs Temp Pulse Resp BP Pulse Ox Pulse Ox 07/24/19 08:00 36.6 C 76 20 118/66 93 07/24/19 03:53 36.8 C 76 20 134/69 94 07/24/19 02:28 73 17 136/74 94 07/23/19 23:59 97 07/23/19 23:02 36.6 C 81 18 100/61 96
[2019-07-24] MEDS: POTASSIUM CHLORIDE 20 MEQ TABCR PO SCH ×2 (11:00→13:58)
[2019-07-24] MEDS ORDERED: VANCOMYCIN TROUGH ONE ×2 (11:30)
--- NOTE | 2019-07-24 13:23 | Pharmacy Report ---
Pharmacy Abx Dose Short Note - Date of Service July 24, 2019 - Assessment & Plan Assessment 59 year old M receiving receiving vancomycin for treatment of group B beta strep bacteremia and groin infection in addition to MRSA wound infection. Patient is s/p graft removal/revision POD #3 WBC has normalized, afebrile Day # 11 of antimicrobial therapy. Plan Vancomycin * Trough level of 16.3 mcg/mL is therapeutic * Continue dose of 2000 mg q10H * Goal trough level 15-20 mcg/mL * Will order trough in 3-4 days or with changes in renal function. Pharmacy will continue to follow and will adjust dose/frequency as necessary. Thank you.
[2019-07-24] MEDS: MoRPHine SULFATE 4 MG/ML 1 ML CARP\\VIAL IV PRN (13:41)
[2019-07-24] MEDS: HEPARIN SODIUM/DEXTROSE 25,000 UNITS/500 ML BAG IV SCH (13:47)
--- NOTE | 2019-07-24 13:57 | Pharmacy Report ---
Pharmacy Glycemic Short Note 2 - Date of Service July 24, 2019 - Glycemic Short BSG Results (Last 24 hours): 07/23/19 07/23/19 07/24/19 16:23 20:38 00:11 Glucose POC Glucose 130 H 152 H 137 H 07/24/19 07/24/19 07/24/19 06:32 07:23 11:24 Glucose 118 H POC Glucose 123 H 100 H OUTPATIENT ANTIDIABETIC REGIMEN: * Toujeo 15 units qPM * Metformin 1000 mg BID * Jardiance 10 mg qam * Trulicity weekly ASSESSMENT: * POD #3, continues on vancomycin for strep bacteremia/MRSA infected graft, on heparin infusion * BSGs have been trending down, Patient received 45 units of insulin yesterday (25 of basal; 20 of novolog) * Fasting today within goal range, attempting to transition basal to evening dosing per patient's home regimen, will do scale with dinner today * BSGs ranging from 100-197 since yesterday at lunch, carb ratio tightened to 6 yesterday, will slightly loosen with lunch, restarted home oral medications PLAN FOR INPATIENT GLYCEMIC CONTROL: * Metformin, jardiance resumed this morning * Basal insulin * Lantus * 15 units BSG <120 * 20 units BSG 120-200 * 25 units BSG >200 * Bolus insulin * NovoLog per scale ACHS or Q6hrs while NPO * Goal Range: Low 110 mg/dL - High 140 mg/dL * Correction Factor: 20 mg/dL/unit * Nutritional / Prandial insulin per carb ratio of 1 unit per 7 grams CHO consumed PLAN FOR DISCHARGE: A1c = 8.3% on 06/15/19 Goal A1c = 7% based on age and comorbidities * Patient currently on triple therapy + basal insulin, if adequate control not achieved with this regimen, could potentially initiate prandial insulin with meals Support Patient Self-Management Healthy Lifestyle (diet, exercise, and smoking cessation) Disease self-management (SMBG) Prevention of complications (BP, Lipid goals, Immunizations)
[2019-07-24 15:32] LABS: Partial Thromboplastin Ratio 2.4
[2019-07-24 15:33] LABS: Partial Thromboplastin Time 66.3 Seconds (21.0-31.0)
[2019-07-24] MEDS ORDERED: INSULIN GLARGINE SOLOSTAR 100 UNITS/ML 3 ML PEN SC ONE (16:30)
[2019-07-24] MEDS: WARFARIN SOD 5 MG TAB PO SCH (17:12)
--- NOTE | 2019-07-24 22:08 | Infectious Disease Progress Nt ---
Date of Service July 24, 2019 Assessment & Plan (1) Streptococcal sepsis: Patient with streptococcal sepsis, with positive wound culture for MRSA as well. Now status post removal of infected graft. Patient will be continued on current IV antibiotics, likely will require at least 2 weeks of IV therapy. Will follow. Subjective Patient seen for follow-up of streptococcal sepsis and groin infection. Now POD #3 after removal of L groin bpg and revision of ax bifem bypass and L fem to post tib bypass using bovine grafts and with L groin wound vac placement, seen in f/u today. Pt states having significant pain. Pt admits fatigue. Denies any other new complaints. Review of Systems Review of Systems: All systems reviewed & are unremarkable except as noted in HPI & below Physical Exam Constitutional: WD/WN, vitals as above comfortable; no acute distress Eyes: PERRL, conjunctivae normal, anicteric sclerae ENMT: external ear and nose normal, oropharynx normal Neck: trachea midline, no thyromegaly neck nontender Respiratory: normal respiratory effort, lungs clear to auscultation normal percussion; does not use accessory muscles Cardiovascular: Rate/Rhythm: regular rate and regular rhythm Heart Sounds: normal S1 and normal S2; no gallop, no murmur and no cardiac rub Vessels: normal peripheral pulses; no JVD Gastrointestinal (Abdomen): normal bowel sounds, soft, nontender, no hepatosplenomegaly Musculoskeletal: no cyanosis or clubbing, extremities motor strength 5/5 Spine: thoracic spine normal to inspection and lumbar spine normal to inspection; no cervical spinal tenderness Skin: no rashes, warm and dry normal turgor and + wound (Dressing intact left groin) Neurologic: patellar DTR's 2+ bilat, sensation intact no focal motor deficits Psychiatric: A+Ox3, euthymic affect Orientation: cooperative Lymphatic: no cervical or axillary lymphadenopathy no inguinal lymphadenopathy Results & Data Vital Signs (Past 12 Hours) Vital Signs Temp Pulse Resp BP Pulse Ox 07/24/19 19:16 36.5 C 83 19 132/72 95 07/24/19 15:55 36.5 C 81 20 129/67 95 07/24/19 11:25 36.5 C 81 19 136/74 93 Laboratory Results Short CBC 07/24/19 Range/Units 06:32 WBC 7.63 (4.8-10.8) K/uL Hgb 9.7 L (14.0-18.0) g/dL Hct 29.0 L (42-52) % Plt Count 170 (130-400) K/uL BMP 07/24/19 06:32 Sodium 144 Potassium 3.5 Chloride 113 H Carbon Dioxide 26 BUN 5 L Creatinine 0.48 L Glucose 118 H Calcium 7.8 L Diagnostic Findings Microbiology 07/21/19 17:12 Leg,Left Gram Stain - Final 07/21/19 17:12 Leg,Left Aerobic and Anaerobic Culture - Preliminary Gram positive cocci 07/21/19 Unknown Leg Gram Stain - Final 07/21/19 Unknown Leg Aerobic and Anaerobic Culture - Preliminary Coag negative Staphylococcus 07/21/19 Unknown Leg Gram Stain - Final 07/21/19 Unknown Leg Aerobic and Anaerobic Culture - Preliminary Coag negative Staphylococcus 07/17/19 07:10 Blood Aerobic Blood Culture - Final No growth in Aerobic bottle after 5 days. 07/17/19 07:10 Blood Anaerobic Blood Culture - Final No growth in Anaerobic bottle after 5 days. 07/17/19 06:54 Blood Aerobic Blood Culture - Final No growth in Aerobic bottle after 5 days. 07/17/19 06:54 Blood Anaerobic Blood Culture - Final No growth in Anaerobic bottle after 5 days. 07/14/19 16:31 Blood Aerobic Blood Culture - Final No growth in Aerobic bottle after 5 days. 07/14/19 16:31 Blood Anaerobic Blood Culture - Final Group B Beta Strep 07/14/19 13:41 Thigh,Left Gram Stain - Final 07/14/19 13:41 Thigh,Left Aerobic and Anaerobic Culture - Final Group B Beta Strep Finegoldia magna Anaerococcus prevotii 07/15/19 12:28 Leg Gram Stain - Final 07/15/19 12:28 Leg Wound Culture - Final Staph aureus MRSA 07/14/19 15:44 Blood Aerobic Blood Culture - Final Group B Beta Strep 07/14/19 15:44 Blood Anaerobic Blood Culture - Final Group B Beta Strep PG Care Time/CCT Total # of Minutes Spent Total Time Spent with Patient: Total time spent is greater than 50% in coordination of care (as documented) at patient's floor/unit and/or counseling patient: (1) Streptococcal sepsis Sepsis acute organ dysfunction status: unspecified Qualified Code(s): A40.9 - Streptococcal sepsis, unspecified
[2019-07-25] MEDS: MoRPHine SULFATE 4 MG/ML 1 ML CARP\\VIAL IV PRN ×3 (00:23→20:26)
[2019-07-25] MEDS: HYDROCODONE/ACETAMINOPHEN 10/325 TAB PO PRN ×4 (02:01→23:45)
[2019-07-25] MEDS ORDERED: IOVERSOL 100ml IV PRN (02:36)
[2019-07-25] MEDS: SODIUM CHLORIDE 0.9% 1000ML 1,000 ML IV SCH ×3 (03:58→09:10)
[2019-07-25 05:30] LABS: Basophils # (auto) 0.03 K/uL (0-0.2); Basophils % (auto) 0.4 %; Eosinophils # (auto) 0.18 K/uL (0-0.5); Eosinophils % (auto) 2.6 %; Hematocrit (blood only) 27.5 % (42-52); Hemoglobin 8.9 g/dL (14.0-18.0); Immature Granulocytes # (auto) 0.03 K/uL (0.00-0.02); Immature Granulocytes % (auto) 0.4 %; Lymphocytes % (auto) 26.1 %; Mean Corpuscular Hemoglobin 30.7 pg (25-34); Mean Corpuscular Hgb Conc 32.4 g/dL (32-36); Mean Corpuscular Volume 94.8 fL (80-100); Mean Platelet Volume 8.5 fL (7.4-10.4); Monocytes # (auto) 0.64 K/uL (0.11-0.59); Monocytes % (auto) 9.3 %; Neutrophils # (auto) 4.21 K/uL (1.4-6.5); Neutrophils % (auto) 61.2 %; Platelet Count 193 K/uL (130-400); RDW Coefficient of Variation 16.6 % (11.5-14.5); RDW Standard Deviation 57.6 fL (36.4-46.3); White Blood Count 6.89 K/uL (4.8-10.8)
[2019-07-25 06:00] LABS: Prothrombin Time 37.3 Seconds (9.0-12.0)
[2019-07-25 06:01] LABS: Creatinine Clr Calc Pharmacy 187.4 ml/min; Est GFR (African American) 136.2; Est GFR (Non-African American) 117.5
[2019-07-25] MEDS: HEPARIN SODIUM/DEXTROSE 25,000 UNITS/500 ML BAG IV SCH (06:32)
--- NOTE | 2019-07-25 06:44 | CT Scan Report ---
CT abd pelvis IV con only CLINICAL HISTORY: Enlarging abdominal hematoma COMPARISON STUDY: 07/12/2019 TECHNIQUE: The patient was scanned in a dynamic helical fashion during intravenous administration of 93 cc of Optiray 320 A dose lowering technique was utilized adhering to the principles of ALARA. CT DOSE: 1552.44 mGy.cm FINDINGS: Lower chest: A left-sided arterial bypass graft is visualized within the chest wall soft tissues. The re are basilar atelectatic changes. Liver: There is hepatic steatosis. No focal masses are visualized. The hepatic and portal veins appea r patent. Gallbladder: Unremarkable. Spleen: Normal in size and attenuation. Pancreas: Unremarkable. Adrenal glands: There is minor adrenal gland thickening unchanged from the prior study Kidneys: There are multiple vascular calcifications. No solid renal masses are visualized. There is n o hydronephrosis. Bowel: There are no transition zones indicate bowel obstruction. There is no acute diverticulitis. Th ere is no evidence of acute appendicitis. Peritoneum: There is no intraperitoneal free air or abdominal ascites. Vasculature: There is no evidence of abdominal aortic aneurysm. There is a left femoral bypass graft in the left anterior abdominal wall soft tissues. There is gas present within the anterior abdominal wall likely postsurgical. There is a suprapubic anterior abdominal wall 42 mm hematoma containing a f luid/fluid level. There are 3 left anterior abdominal wall hematomas measuring 6 cm, 2.6 cm, and 5.2 cm. Whether hematomas is intimately related to the bypass graft and there appears to be evidence for active bleeding. Adenopathy: None. Pelvic viscera: The bladder, and pelvic viscera are unremarkable. Skeletal structures: There are postsurgical changes of a total right hip arthroplasty. IMPRESSION: 1. No evidence of bowel obstruction. No evidence of free air 2. There are 4 anterior abdominal wall hematomas, likely associated with the patient's bypass graft. One demonstrates evidence of active bleeding. These hematomas measure 6 cm, 5.2 cm, 4.2 cm, and 2.6 c m. There is associated body wall edema. Also present is air within the soft tissues of the abdominal wall, likely secondary to recent surgery. Electronically signed by: Michael Navarro M.D. 07/25/2019 6:42 AM
[2019-07-25] MEDS: IPRATROPIUM BROMIDE/ALBUTEROL respimat INH INH SCH ×4 (07:33→20:27)
[2019-07-25] MEDS ORDERED: POLYETHYLENE (MIRALAX) 17 GM PACK PO PRN (09:00)
--- NOTE | 2019-07-25 09:32 | Family Medicine Progress Note ---
Date of Service July 25, 2019 Assessment & Plan (1) Infected prosthetic vascular graft: 59yo M PMH HTN, DM with neuropathy, COPD, PAD with bilat LE ischemia, h/o fem/fem bypass, h/o ax/fem bypass, admitted 07/14 for bleeding incision with sepsis, +Blood cx (Gram + cocci and staph), developed L groin incision infection with MRSA. Medicine consulted for chronic medical issues and glucose management. #Streptococcal sepsis, resolved: -S/P femoral bypass revision and insertion of wound VAC to left groin (07/21/19) secondary to recent MRSA sepsis and infection of graft -Infectious disease consulted, appreciate recs -Continue vancomycin, will need at least 2 weeks of IV antibiotics -We will continue to follow -Continue to follow wound and blood cultures -Routine postop care per vascular -Plan to change wound VAC tomorrow #Anticoagulation Anticoagulation per vascular surgery. Patient was on a heparin GTT, started on warfarin concurrently until goal INR is achieved.Was previously on 10 mg p.o. daily, INR this morning was 3.2, warfarin decreased to 5 mg daily will reassess INR tomorrow ordered. -INR: 3.2 -> 4.0 -Hold warfarin 5 mg today secondary to supratherapeutic INR of 4.0 #Post-op anemia and hematoma 2U PRBCs administered 07/23/19 due to 2 point drop in Hb (10.6-->8.6),Dr. Alanis made aware of bleeding from incision, directed to apply pressure and monitor. -Night resident contacted to evaluate suspected hematoma with active bleeding, CT scan obtained demonstrating possible bleeding. Physical exam not consistent with significant bleed. -Hemoglobin this morning dropped to 8.9 from 9.7 this likely represents a combination of dilutional secondary to being 10 L positive. -Continue to trend CBC #T2DM -On multiple home agents. A1C in June was 8.3. -Is tolerating T2DM diet. -Glycemic consult placed; pharmacy managing further recommendations. Adjusted ISS on 07/23. -Continue to hold home agents - Metformin, Toujeo, Trulicity and Jardiance -Continue home Neurontin for neuropathic pain #COPD (chronic obstructive pulmonary disease) -COPD without acute exacerbation. Adequate oxygenation on room air. No wheeze. -Continue Combivent -Continue Albuterol PRN -Continue to monitor #Hypertension: -Blood pressure stable at present -Continue lisinopril 40 mg #JAMES on CPAP: -States he is compliant with CPAP at home. Does not wish to wear it here -Monitor saturations #Insomnia -Ok to give ambien prn #Iatrogenic hypervolemia Given significant fluids in the postoperative period, patient is a total of 10 L positive. -Given one-time dose of 20 mg Lasix IV FENa: Type II diabetic diet Code Status: DNR/DNI DVT PPX: Anticoagulation held today secondary to supratherapeutic INR PT/OT: Consulted Dispo: PCU Houston Mark MD PGY 2, FCM This chart was completed utilizing [employer] voice recognition software. Grammatical errors, random word insertions, pronoun errors, and in complete sentences are an occasional consequence of the system. Any questions or concer ns about the content, text, or information contained within the body of this dictation should be addressed directly to the physician for clarification. Supervising Physician Co-Signing Physician Notes Patient seen and examined with Dr. Mark. I agree with their exam findings, review of systems, assessment and plan. I have personally reviewed the lab work and imaging from today. patient frustrated with the pain, frustrated he cannot move his bowels or get up and walk eating well, breathing stable reviewed labs Exam: overweight male, NAD, lungs CTA bilaterally with some decreased breath sounds in the bases, no distress, regular S1 S2 abd soft, NT, ND, extremities are warm, left leg appears well perfused, slightly swollen compared to right leg, + edema in legs bilaterally - Acute blood loss anemia in post operative setting: Hb down slightly, BP stable, will continue to monitor with vascular - Constipation: bowel regimen with Miralax, increase to BID, unfortunately he is unable to be active with the recent surgery and wound vac, eating well - Volume overload: due to transfusion, IV fluids at time of admission, give Lasix 20mg PO x 1 and watch for response for full details see resident note Subjective Patient doing well this morning in better spirits. Patient reports he had some left lower abdominal pain at the site of the incision yesterday evening. He reported this nursing the night resident obtain a CT scan demonstrating potential bleeding. Patient does have an elevated INR and is on a heparin drip, so there is concern concern given that. Otherwise patient is doing well, still no bowel movement started a more aggressive bowel regimen, voiding on his own, tolerating diet although not eating a ton, and sleeping well. Intermittently seems depressed secondary to prolonged hospital stay. During my interaction with him he seemed rather positive. acute concerns at present related to his anticoagulation and pain management. All questions answered. Physical Exam Physical Exam: General: Middle-age male laying in bed no acute distress HEENT: Normocephalic atraumatic Neck: Normal vision inspection Cardiac: Regular rate and rhythm, I did not appreciate significant murmurs rubs or gallops, 1+ pedal edema bilaterally, negative calf tenderness that is not related to surgery, negative JVD Respiratory: Clear to auscultation bilaterally with symmetrical chest rise with out significant wheezes rales or rhonchi GI: Bowel sounds present, nontender to palpation, not distended MSK: Moves extremities Skin: Left lower quadrant surgical site slightly oozy this morning otherwise surgical sites clean dry and intact lower extremity otherwise warm, well perfused Neuro: Alert and oriented x4 Psych: Depressed, calm, cooperative Results & Data Vital Signs (Past 12 Hours) Vital Signs Temp Pulse Resp BP Pulse Ox 07/25/19 07:47 36.5 C 70 18 124/76 92 07/25/19 05:38 36.4 C L 85 16 129/69 95 07/25/19 03:53 36.6 C 80 18 132/65 94 07/25/19 02:45 76 18 142/73 H 93 07/24/19 23:29 36.4 C L 82 18 113/66 93 Laboratory Results 07/25/19 07/25/19 07/25/19 Range/Units 07:29 05:15 05:15 WBC 6.89 (4.8-10.8) K/uL RBC 2.90 L (4.7-6.1) M/uL Hgb 8.9 L (14.0-18.0) g/dL Hct 27.5 L (42-52) % MCV 94.8 (80-100) fL MCH 30.7 (25-34) pg MCHC 32.4 (32-36) g/dL RDW Std Deviation 57.6 H (36.4-46.3) fL RDW Coeff of Maira 16.6 H (11.5-14.5) % Plt Count 193 (130-400) K/uL MPV 8.5 (7.4-10.4) fL Immature Gran % (Auto) 0.4 % Neut % (Auto) 61.2 % Lymph % (Auto) 26.1 % Floyd % (Auto) 9.3 % Eos % (Auto) 2.6 % Baso % (Auto) 0.4 % Immature Gran # (Auto) 0.03 H (0.00-0.02) K/uL Neut # (Auto) 4.21 (1.4-6.5) K/uL Lymph # (Auto) 1.80 (1.2-3.4) K/uL Floyd # (Auto) 0.64 H (0.11-0.59) K/uL Eos # (Auto) 0.18 (0-0.5) K/uL Baso # (Auto) 0.03 (0-0.2) K/uL PT 37.3 H (9.0-12.0) Seconds INR 4.0 H (0.9-1.1) APTT (21.0-31.0) Seconds PTT Ratio Creatinine (0.6-1.4) mg/dl Est Cr Clr Drug Dosing ml/min Est GFR ( Amer) Est GFR (Non-Af Amer) POC Glucose 101 H (70-99) Vancomycin Trough (See Comment) mcg/ml 07/25/19 07/24/19 07/24/19 Range/Units 05:15 20:44 16:32 WBC (4.8-10.8) K/uL RBC (4.7-6.1) M/uL Hgb (14.0-18.0) g/dL Hct (42-52) % MCV (80-100) fL MCH (25-34) pg MCHC (32-36) g/dL RDW Std Deviation (36.4-46.3) fL RDW Coeff of Maira (11.5-14.5) % Plt Count (130-400) K/uL MPV (7.4-10.4) fL Immature Gran % (Auto) % Neut % (Auto) % Lymph % (Auto) % Floyd % (Auto) % Eos % (Auto) % Baso % (Auto) % Immature Gran # (Auto) (0.00-0.02) K/uL Neut # (Auto) (1.4-6.5) K/uL Lymph # (Auto) (1.2-3.4) K/uL Floyd # (Auto) (0.11-0.59) K/uL Eos # (Auto) (0-0.5) K/uL Baso # (Auto) (0-0.2) K/uL PT (9.0-12.0) Seconds INR (0.9-1.1) APTT (21.0-31.0) Seconds PTT Ratio Creatinine 0.52 L (0.6-1.4) mg/dl Est Cr Clr Drug Dosing 187.4 ml/min Est GFR ( Amer) 136.2 Est GFR (Non-Af Amer) 117.5 POC Glucose 121 H 103 H (70-99) Vancomycin Trough (See Comment) mcg/ml 07/24/19 07/24/19 07/24/19 Range/Units 15:03 11:56 11:24 WBC (4.8-10.8) K/uL RBC (4.7-6.1) M/uL Hgb (14.0-18.0) g/dL Hct (42-52) % MCV (80-100) fL MCH (25-34) pg MCHC (32-36) g/dL RDW Std Deviation (36.4-46.3) fL RDW Coeff of Maira (11.5-14.5) % Plt Count (130-400) K/uL MPV (7.4-10.4) fL Immature Gran % (Auto) % Neut % (Auto) % Lymph % (Auto) % Floyd % (Auto) % Eos % (Auto) % Baso % (Auto) % Immature Gran # (Auto) (0.00-0.02) K/uL Neut # (Auto) (1.4-6.5) K/uL Lymph # (Auto) (1.2-3.4) K/uL Floyd # (Auto) (0.11-0.59) K/uL Eos # (Auto) (0-0.5) K/uL Baso # (Auto) (0-0.2) K/uL PT (9.0-12.0) Seconds INR (0.9-1.1) APTT 66.3 H* (21.0-31.0) Seconds PTT Ratio 2.4 Creatinine (0.6-1.4) mg/dl Est Cr Clr Drug Dosing ml/min Est GFR ( Amer) Est GFR (Non-Af Amer) POC Glucose 100 H (70-99) Vancomycin Trough 16.3 (See Comment) mcg/ml Medications Administered Current Inpatient Medications Acetaminophen (Tylenol) 650 mg PO Q4H PRN PRN Reason: Pain or Fever Stop: 08/11/19 15:32 Hydrocodone Bitart/Acetaminophen (Teller 10) 1 tab PO QID PRN PRN Reason: Pain Stop: 07/26/19 15:38 Last Admin: 07/25/19 10:39 Dose: 1 tab Documented by: Albuterol (Ventolin Hfa) 2 puffs INH QID PRN PRN Reason: Shortness Of Breath Stop: 08/11/19 15:38 Albuterol (Combivent Respimat) 2 puffs INH QID RAFA Stop: 08/11/19 20:59 Last Admin: 07/25/19 07:33 Dose: 2 puffs Documented by: Aspirin (Ecotrin) 325 mg PO QAM RAFA Stop: 08/12/19 08:59 Last Admin: 07/25/19 10:27 Dose: 325 mg Documented by: Dextrose (Dextrose 50%) 25 - 50 ml IV UD PRN; Protocol PRN Reason: Hypoglycemia Protocol Stop: 08/17/19 10:44 Docusate Sodium (Colace) 100 mg PO BID [facility] Stop: 08/17/19 11:14 Last Admin: 07/25/19 10:27 Dose: 100 mg Documented by: Empagliflozin (Jardiance) 1 ea PO DAILY RAFA Stop: 08/23/19 08:59 Last Admin: 07/25/19 10:27 Dose: 1 ea Documented by: Gabapentin (Neurontin) 800 mg PO TID [facility] Stop: 08/14/19 20:59 Last Admin: 07/25/19 10:27 Dose: 800 mg Documented by: Glucagon (Glucagen) 1 mg IM UD PRN; Protocol PRN Reason: Hypoglycemia Protocol Stop: 08/17/19 10:44 Glucose (Glucose 40%) 15 - 30 gm PO UD PRN; Protocol PRN Reason: Hypoglycemia Protocol Stop: 08/17/19 10:44 Glucose (Dex4 Glucose) 4 - 8 tabs PO UD PRN; Protocol PRN Reason: Hypoglycemia Protocol Stop: 08/17/19 10:44 Vancomycin HCl 2,000 mg/ (Sodium Chloride) 540 mls @ 200 mls/hr IV Q10H RAFA; Protocol Stop: 07/27/19 18:29 Last Infusion: 07/25/19 11:16 Dose: Infused Documented by: Sodium Chloride (Nss) 250 mls @ 15 mls/hr IV .[id number] PRN PRN Reason: For Transfusion Stop: 08/22/19 09:56 Insulin Aspart (Novolog Flexpen) 0 units SC ACHS [facility] Stop: 08/22/19 11:29 Last Admin: 07/25/19 10:23 Dose: Not Given Documented by: Ioversol (Optiray 320 100ml) 100 ml IV ONCE PRN PRN Reason: Interaction Checking Stop: 07/29/19 02:35 Last Admin: 07/25/19 02:37 Dose: 93 ml Documented by: Lisinopril (Zestril) 40 mg PO QAM [facility] Stop: 08/12/19 08:59 Last Admin: 07/25/19 10:27 Dose: 40 mg Documented by: Metformin HCl (Glucophage) 1,000 mg PO BIDM RAFA Stop: 08/21/19 16:59 Last Admin: 07/25/19 10:24 Dose: Not Given Documented by: Miscellaneous (Carbohydrates For Hypoglycemia) 15 - 30 gm PO UD PRN PRN Reason: Hypoglycemia Treatment Stop: 08/17/19 10:44 Miscellaneous Information (Consult) 1 ea N/A UD PRN PRN Reason: Consult Stop: 08/13/19 17:33 Last Admin: 07/21/19 13:30 Dose: 1 ea Documented by: Miscellaneous Information (Consult Glycemic Management Pharmacy) 1 ea N/A UD PRN PRN Reason: Consult Stop: 08/20/19 15:59 Morphine Sulfate (Morphine Sulfate) 2 mg IV Q2HWA PRN PRN Reason: Pain Stop: 07/28/19 22:54 Last Admin: 07/25/19 10:40 Dose: 2 mg Documented by: Morphine Sulfate (Morphine Sulfate) 4 mg IV Q2HWA PRN PRN Reason: Pain Stop: 07/28/19 23:01 Last Admin: 07/25/19 00:23 Dose: 4 mg Documented by: Nitroglycerin (Nitrostat) 0.4 mg SL UD PRN PRN Reason: Chest Pain Stop: 08/11/19 15:32 Polyethylene Glycol (Miralax Powder Packet) 17 gm PO BID PRN PRN Reason: Constipation Stop: 08/17/19 11:02 Warfarin Sodium (Coumadin) 5 mg PO DAILY@1600 RAFA Stop: 08/23/19 15:59 Last Admin: 07/24/19 17:12 Dose: 5 mg Documented by: Zolpidem Tartrate (Ambien) 5 mg PO HS PRN PRN Reason: Sleep Stop: 08/20/19 00:00 Last Admin: 07/21/19 00:44 Dose: 5 mg Documented by: PG Care Time/CCT Total # of Minutes Spent Total Time Spent with Patient: Total time spent is greater than 50% in coordination of care (as documented) at patient's floor/unit and/or counseling patient: Resident Activity Tracking Resident Involvement: Resident Care Provided Care Provided: Adult Hospital Medicine
[2019-07-25] MEDS ORDERED: FUROSEMIDE 20 MG in SYRINGE 0 ML IV ONE (09:40)
--- NOTE | 2019-07-25 10:22 | Surgery Progress Note ---
Date of Service July 25, 2019 Assessment & Plan (1) Infected prosthetic vascular graft: Pt overall improving. His VSS, and pain controlled with medications. CTA demonstrates multiple post op hematomas, but pt hgb with only mild decrease and may be dilutional. Wounds progressing as expected, and vac currently functioning well. Planning on change tomorrow. INR 4.0 today, hold coumadin. d/c hep drip. Conitnue to monitor. (2) Acute blood loss as cause of postoperative anemia: Hgb 8.9 today, 9.7 yesterday. Pt remains stable. Fluids stopped. Will reeval hgb/hct and INR tomorrow. Supervising Physician Co-Signing Physician Notes Attending attestation Pt seen and examined in concert with Dr. Negrete. In agreement with the documented findings as noted in the resident documentation with any exceptions or additions as noted here. Complaining of aching pain at graft sites with increased pain at left abdomen concommitant wth new hematoma formation at site with oozing bleeding from surgical site which improved with pressure. On examination, S1/S2 nl RRR no MCG. Decreased bibasilar breath sounds. TTP over apparent hematoma formation at site with oozing bleed from same site onset following initial ambulation and improving with pressure. Infected prosthetic vascular graft s/p revision and augmentation - infectious disease consultation - continue vancomycin. Cultures pending (48hrs evening of 07/23) Acute postoperative bleeding - pressure applied and bleeding ceased. Anemia mgmt as below Anemia, postoperative - transfusion 2UPRBC for procedural blood loss and postoperative bleeding. Trend CBC post and then in AM, sooner if needed. Anticoagulation - heparin drip transitioning to warfarin, per surgical management DMII, poorly controlled, with neuropathy - labile glucose today, though generally < 200. Narrow glycemic control (pharmacy consult placed by primary team). Expected return to home medications on discharge. Continue gabapentin Else see resident documentation as noted. Subjective 59 yo m POD #4 after removal of L groin bpg and revision of ax bifem bypass and L fem to post tib bypass using bovine grafts and with L groin wound vac placement, seen in f/u today. Pt states having significant pain, but overall seems to be controlled with medications. Pt states had increased L lower abd pain last night, so he had a CTA done. Hgb 8.9 today. No other new complaints Review of Systems Review of Systems: All systems reviewed & are unremarkable except as noted in HPI & below Physical Exam Constitutional: WD/WN, vitals as above + ill appearing (chronically); no acute distress Respiratory: normal respiratory effort, lungs clear to auscultation Cardiovascular: Rate/Rhythm: regular rate and regular rhythm Vessels: + abnormal peripheral pulses (dopplerable) Gastrointestinal (Abdomen): Inspection/Auscultation: abdomen normal to inspection and normal bowel sounds Percussion/Palpation: abdomen nontender Musculoskeletal: Extremities: strength 5/5 throughout Skin: + wound (multiple surgical wounds noted, all closed except L groin vac, minimal blee) Psychiatric: Orientation: alert and oriented x 3 Affect: + anxious affect, + irritable affect and + angry affect Results & Data Vital Signs (Past 12 Hours) Vital Signs Temp Pulse Resp BP Pulse Ox 07/25/19 07:47 36.5 C 70 18 124/76 92 07/25/19 05:38 36.4 C L 85 16 129/69 95 07/25/19 03:53 36.6 C 80 18 132/65 94 07/25/19 02:45 76 18 142/73 H 93 07/24/19 23:29 36.4 C L 82 18 113/66 93
[2019-07-25] MEDS: INSULIN ASPART 100 UNITS/ML 3 ML PEN SC SCH ×4 (10:23→20:54)
[2019-07-25] MEDS: METFORMIN HCL 500 MG TAB PO SCH (10:24)
[2019-07-25] MEDS: VANCOMYCIN HCL 2,000 MG in SODIUM CHLORIDE 0.9% 500 ML IV SCH ×2 (10:26→17:16)
[2019-07-25] MEDS: DOCUSATE SODIUM 100 MG CAP PO SCH ×2 (10:27→20:27)
[2019-07-25] MEDS: EMPAGLIFLOZIN 10 MG PO SCH (10:27)
[2019-07-25] MEDS: GABAPENTIN 800 MG TAB PO SCH ×3 (10:27→20:27)
[2019-07-25] MEDS: ASPIRIN 325 MG ECTAB PO SCH (10:27)
[2019-07-25] MEDS: lisinopriL 40 MG TAB PO SCH (10:27)
[2019-07-25] MEDS: MoRPHine SULFATE 2 MG/ML CARP IV PRN (10:40)
--- NOTE | 2019-07-25 14:49 | Pharmacy Report ---
Pharmacy Glycemic Short Note 2 - Date of Service July 25, 2019 - Glycemic Short BSG Results (Last 24 hours): 07/24/19 07/24/19 07/25/19 16:32 20:44 07:29 POC Glucose 103 H 121 H 101 H 07/25/19 11:31 POC Glucose 137 H OUTPATIENT ANTIDIABETIC REGIMEN: * Toujeo 15 units qPM * Metformin 1000 mg BID * Jardiance 10 mg qam * Trulicity weekly ASSESSMENT: 07/25 * bsgs 100-123 over the last 24 hours, and received 21 units of insulin (this is ~half of previous day requirements) * Fasting this AM 101, lantus scale for this evening * Metformin held as patient received CT with contrast early this morning * Loosened correction factor/carb ratio as insulin needs reduced yesterday 07/24 * POD #3, continues on vancomycin for strep bacteremia/MRSA infected graft, on heparin infusion * BSGs have been trending down, Patient received 45 units of insulin yesterday (25 of basal; 20 of novolog) * Fasting today within goal range, attempting to transition basal to evening dosing per patient's home regimen, will do scale with dinner today * BSGs ranging from 100-197 since yesterday at lunch, carb ratio tightened to 6 yesterday, will slightly loosen with lunch, restarted home oral medications PLAN FOR INPATIENT GLYCEMIC CONTROL: * Jardiance 10 mg * * Basal insulin * Lantus * 10 units BSG <110 * 15 units BSG 110-200 * 20 units BSG >200 * Bolus insulin * NovoLog per scale ACHS or Q6hrs while NPO * Goal Range: Low 110 mg/dL - High 140 mg/dL * Correction Factor: 25 mg/dL/unit * Nutritional / Prandial insulin per carb ratio of 1 unit per 8 grams CHO consumed PLAN FOR DISCHARGE: A1c = 8.3% on 06/15/19 Goal A1c = 7% based on age and comorbidities * Patient currently on triple therapy + basal insulin, if adequate control not achieved with this regimen, could potentially initiate prandial insulin with meals Support Patient Self-Management Healthy Lifestyle (diet, exercise, and smoking cessation) Disease self-management (SMBG) Prevention of complications (BP, Lipid goals, Immunizations)
--- NOTE | 2019-07-25 15:32 | Psychiatric Consultation ---
Date of Consultation July 25, 2019 Impression / Recommendations Impression 59-year-old male admitted medically on 07/12/19 due to postoperative hemorrhage of an incision s/p left femoral to profunda bypass which occurred on 06/14/19. 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 Pt has verbalize various concerns due this admission, and was seen today by service excellence. During follow-up visit with surgical team, it was reported that the patient stated "he doesn't want to live anymore and if he was at home, he would just 'end things'." Psychiatric consultation was requested to evaluate patient for "severe depression." Despite informing surgical team he did not want to speak with psychiatry, he did tolerate brief conversations about the situation with both this provider and our psychiatric nurse liaison. Pt verbalized to both parties that the comment was made out of anger and frustration, and that he has not been experiencing suicidal ideation. He admits he is upset about his complications and extended hospitalization, but states he does not have thoughts, plan, or intent to harm himself. Due to level of frustration with our involvement, patient's participation in a full risk assessment was limited. He is, however, denying SI, is future oriented in conversation, is able to identify close supports, and expressed willingness to reach out to our service with any change in psychiatric needs. He denies prior psychiatric medications or history of inpatient treatments. No prior suicide attempts. While he verbalizes frustration with hospitalization, he denies mood symptoms prior to his admission. His presentation does not meet criteria for a formal major depressive disorder and medications would not be indicated - they also would not be expected to be acutely effective to improve mood. Pt was offered medication discussion and therapy referral and declined both. Pt is requested that our future involvement be at his request, as he states he was not agreeable to speaking with us and does not want to discuss the subject again. He was reminded of our 24-hour liaison support and asked to request any necessary services during the remainder of his hospitalization. Pt was agreeabl e with this. If there is continued concern related to patient's safety to return home, would suggest that primary team reach out to his family and discuss any observations related to mood or concerns. Pt was not agreeable with further involvement of our service, and it is questionable that he would allow us to discuss the subject further with his family. It does seem that that statement was made during a time of frustration, and true intent to act on the statement was denied. Will will continue to follow, but will only follow-up with the patient directly if he should request - at his request. Based on information gathered during this evaluation, inpatient psychiatric admission would not be recommended. Dr. Berenice Shaw was directly involved in review and discussion of the patient's case and participated in medical decision making regarding treatment recommendations. Risk Factors Assessment Male: Yes : Yes Do You Have Access To A Gun?: No Health Problems: Yes Mental Health Diagnoses: No Previous Psychiatric Hospitalization: No Protective Factors Assessment : Yes Stable Relationships: Yes Supportive Family: Yes CPT Code Initial Consultation: 76629 Psych History Identifying Data 59-year-old male admitted medically on 07/12/19 due to postoperative hemorrhage of an incision s/p left femoral to profunda bypass which occurred on 06/14/19. 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 Pt has verbalize various concerns due this admission, and was seen today by service excellence. During follow-up visit with surgical team, it was reported that the patient stated "he doesn't want to live anymore and if he was at home, he would just 'end things'." Psychiatric consultation was requested to evaluate patient for "severe depression." Pt verbalizes he is not interested in participating in consultation, but was agreeable to brief conversation. Chief Complaint "I'm not going there. I told them I wasn't going there, I didn't want to talk to you." History of Present Illness Gustavo Feliciano is a 60-year-old male admitted medically on 07/12/19 due to postoperative hemorrhage of an incision s/p left femoral to profunda bypass which occurred on 06/14/19. 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 Pt has unfortunately experienced several complications following his surgery. Pt has verbalize various concerns due this admission, and was seen today by service [facility]. Today, it was reported that patient had verbalized suicidal ideation. During follow-up visit with surgical team, it was reported that the patient stated "he doesn't want to live anymore and if he was at home, he would just 'end things'." Psychiatric consultation was requested to evaluate patient for "severe depression." Patient's case was reviewed and discussed with psychiatric nurse liaison and psychiatrist. He was reported frustrated, but did agree to a conversation with our nurse liaison earlier today. It was reported during this conversation that the patient admitted to the statement, but reported "I said that just to get a reaction to see if she would be as uncomfortable as I am right now." Pt denied to psychiatric nurse liaison previous psychiatric history, suicide attempts, or owning any guns or weapons he could use to harm himself. Pt refused to speak further with our liaison, but was informed that a psychiatric prescriber would be following up. Upon entering patient's room, this provider found the patient to be sleeping lightly. He awoke to this provider entering his room. He reported willingness to speak, then inquired, "who are you, what do you want?" This provider informed him that she was following up on earlier conversation regarding mood concerns. Pt becomes upset and states, "I'm not even going there." He states, "I told you people I didn't want to talk to you. It was a statement, I don't mean it, it's done. I'd really like for this to be dropped." This provider informed the patient that ideally this would be the last conversation we would have to have about the incident, and that his patience would be appreciated so an assessment of safety could be completed. Pt tolerates additional conve rsation, but remains frustrated for the remainder of the assessment. He refuses to tell this provider the exact statement that led to our involvement, stating "I didn't even mean it. I said it because I was mad, but I'm not even going there. I'm not going to hurt myself." Pt denies prior history of these thoughts or previous psychiatric treatment. When asked about history of anxiety or depression, patient states "well sure, that's a normal thing." He states that he has not experienced a period of consistently low mood without situational cause. He reports his of 33 years is his primary support and that his goal at this time is to speak with her about "where I plan to heal." He states, "my only plan right now is to begin healing." He admits that despite his current situation, he feels there are things in life worth living for. He denies desire for outpatient psychiatric services to be arranged during his hospitalization. He denies other needs from our service at this time, and requests that we "don't bother me any more while I'm here." He was informed that we would continue to follow his case from a far, and he was agreeable to reaching out with any needs from our service prior to discharge. Past Psychiatric History Current Psychiatric Diagnosis: None Outpatient Services: Denies Previous Psych Admissions: Denies Do You Have Access To A Gun?: No History of Previous Suicide Attempt: No Past Medication Trials: Denies Allergies Allergy/AdvReac Type Severity Reaction Status Date / Time Penicillins Allergy Severe THROAT Verified 07/12/19 14:30 SWELLS AND HIVES Home Medications Home Medications Medication Instructions Recorded Confirmed Type Combivent Respimat 2 puff INHALATION QID 05/01/19 07/12/19 History Jardiance 10 mg PO QAM 05/01/19 07/12/19 History Toujeo SoloStar U-300 Insulin 15 unit SUBCUT QPM 05/01/19 07/12/19 History Trulicity 0.75 mg SUBCUT WK 05/01/19 07/12/19 History albuterol sulfate 2 puff INHALATION QID PRN 05/01/19 07/12/19 History aspirin 325 mg PO QAM 05/01/19 07/12/19 History cilostazol 100 mg PO BID 05/01/19 07/12/19 History gabapentin [Neurontin] 800 mg PO BID 05/01/19 07/12/19 History lisinopril 40 mg PO QAM 05/01/19 07/12/19 History metformin 1,000 mg PO BID 05/01/19 07/12/19 History hydrocodone-acetaminophen 1 tab PO QID PRN 05/30/19 07/12/19 History collagenase clostridium histo. 250 unit TOPICAL DAILY 07/12/19 07/12/19 History [Santyl] varenicline [Chantix Continuing 1 mg PO DAILY 07/12/19 07/12/19 History Month Box] Personal History Living Arrangements: Home (with ) Marital Status: (to of 33 years) Patient History Medical History Diverticulitis (Resolved) Arthritis Chronic back pain Chronic obstructive pulmonary disease Diabetes mellitus, type 2 Diabetic neuropathy, type II diabetes mellitus Hypertension SOB (shortness of breath) on exertion Sleep apnea CPAP HS 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 PER PT History of bowel resection WITH COLOSTOMY/REVERSAL LATER History of right hip replacement S/P femoral-popliteal bypass surgery X 2-LEFT LEG Family History Mother Family history of diabetes mellitus Uncle Family history of diabetes mellitus Social History Preferred Language: Uzbek Communication Ability: Effective Pharmacy District Manager Required: No Beliefs That Will Affect Care: None Current Living Situation: Spouse Current Living Situation Comment: only Other Information That Helps Us Care for You: No Feels Safe at Home: Yes Safety Concerns: Feels Safe At This Time Smoking Status: Former smoker Tobacco Type: smokeless tobacco ; Cigarettes Per Day: 16 ; Do You Dip or Chew Tobacco: Yes ; Second Hand Exposure: No ; Tobacco Cessation Education Requested by Patient: No Hx Alcohol Use: No Hx Substance Use: Yes substance use type: marijuana Last Used Substance: Unknown Physical Exam Psychiatric: Orientation: alert and oriented x 3; + uncooperative (tolerates a brief conversation, admits to frustration for duration of visit) Apperance: appropriately dressed, appropriately groomed and appeared stated age Obese male awoken from what appeared to be peaceful sleep. Dressed appropriately for setting in hospital gown. Wearing corrective lenses. Hair appears clean, alonso is neatly trimmed. Level of hygiene and hydration appear adequate for setting. Eye Contact: good eye contact Motor Behavior: no abnormal motor movements (observed while laying in bed) Speech: + loud speech (angry tone, usual rhythm) Affect: + angry affect and mood congruent with affect Mood: + angry mood ("I'm so upset with this.") Thought Process: goal directed thought process, clear/coherent thought process and thought association intact Thought Content: + preoccupation (with perceived poor care/management) and reality based without delusions; no hopelessness (admits to frustration r/t hospitalization, but denies overt hopelessness) Suicidal Thoughts: denies suicidal thoughts, denies suicidal plan and denies suicidal intent Refuses to discuss specific statement made; states "I'm not going there. It's not a thought." Homicidal Thoughts: denies homicidal thoughts Hallucinations: no auditory hallucinations and no visual hallucinations Cognition: attention grossly intact and language grossly intact Insight: + fair insight Judgement: + fair judgement Vital Signs (Past 24 Hours): Last Vital Signs Temp 36.4 C L 07/25/19 11:58 Pulse 80 07/25/19 11:58 Resp 18 07/25/19 11:58 BP 136/76 07/25/19 11:58 Pulse Ox 98 07/25/19 11:58 Review of Systems Constitutional: reports significant pain and weakness Cardiovascular: denied Respiratory: denied Gastrointestinal: denied Neurological: denied Psychiatric: denies symptoms other than stated above Total of at least 10 systems reviewed, pertinent positives as above and in HPI. Results & Data Medications Administered Hydrocodone Bitart/Acetaminophen (Olla 10/325) 1 tab PO QID PRN PRN Reason: Pain Stop: 07/26/19 15:38 Last Admin: 07/25/19 10:39 Dose: 1 tab Documented by: [id number] Admin: 07/25/19 02:01 Dose: 1 tab Documented by: [id number] Admin: 07/24/19 19:36 Dose: 1 tab Documented by: [id number] Admin: 07/24/19 11:00 Dose: 1 tab Documented by: [id number] Admin: 07/24/19 05:15 Dose: 1 tab Documented by: [id number] Admin: 07/23/19 19:49 Dose: 1 tab Documented by: [id number] Admin: 07/23/19 14:22 Dose: 1 tab Documented by: [id number] Admin: 07/23/19 07:27 Dose: 1 tab Documented by: [id number] Admin: 07/22/19 20:32 Dose: 1 tab Documented by: [id number] Admin: 07/22/19 15:20 Dose: 1 tab Documented by: [id number] Admin: 07/20/19 08:20 Dose: 1 tab Documented by: [id number] Admin: 07/19/19 08:41 Dose: 1 tab Documented by: [id number] Admin: 07/18/19 17:18 Dose: 1 tab Documented by: [id number] Admin: 07/18/19 08:54 Dose: 1 tab Documented by: [id number] Admin: 07/18/19 02:00 Dose: 1 tab Documented by: [id number] Admin: 07/17/19 20:33 Dose: 1 tab Documented by: [id number] Admin: 07/16/19 22:42 Dose: 1 tab Documented by: [id number] Admin: 07/16/19 16:37 Dose: 1 tab Documented by: [id number] Admin: 07/15/19 14:16 Dose: 1 tab Documented by: [id number] Admin: 07/14/19 19:12 Dose: 1 tab Documented by: [id number] Admin: 07/14/19 09:45 Dose: 1 tab Documented by: [id number] Admin: 07/13/19 19:57 Dose: 1 tab Documented by: [id number] Admin: 07/13/19 13:41 Dose: 1 tab Documented by: [id number] Admin: 07/13/19 03:57 Dose: 1 tab Documented by: [id number] Admin: 07/12/19 21:51 Dose: 1 tab Documented by: [id number] Albuterol (Combivent Respimat) 2 puffs INH QID [facility] Stop: 08/11/19 20:59 Last Admin: 07/25/19 12:39 Dose: 2 puffs Documented by: [id number] Admin: 07/25/19 07:33 Dose: 2 puffs Documented by: [id number] Admin: 07/24/19 20:10 Dose: 2 puffs Documented by: [id number] Admin: 07/24/19 17:13 Dose: 2 puffs Documented by: [id number] Admin: 07/24/19 13:47 Dose: 2 puffs Documented by: [id number] Admin: 07/24/19 08:08 Dose: 2 puffs Documented by: [id number] Admin: 07/23/19 20:54 Dose: 2 puffs Documented by: [id number] Admin: 07/23/19 16:37 Dose: 2 puffs Documented by: [id number] Admin: 07/23/19 12:47 Dose: 2 puffs Documented by: [id number] Admin: 07/23/19 07:13 Dose: 2 puffs Documented by: [id number] Admin: 07/22/19 20:25 Dose: 2 puffs Documented by: [id number] Admin: 07/22/19 17:26 Dose: 2 puffs Documented by: [id number] Admin: 07/22/19 12:45 Dose: 2 puffs Documented by: [id number] Admin: 07/22/19 08:11 Dose: 2 puffs Documented by: [id number] Admin: 07/22/19 01:14 Dose: Not Given Documented by: [id number] Admin: 07/22/19 00:07 Dose: Not Given Documented by: [id number] Admin: 07/21/19 18:02 Dose: Not Given Documented by: [id number] Admin: 07/21/19 09:25 Dose: 2 puffs Documented by: [id number] Admin: 07/20/19 20:34 Dose: 2 puffs Documented by: [id number] Admin: 07/20/19 16:58 Dose: Not Given Documented by: [id number] Admin: 07/14/19 21:10 Dose: 2 puffs Documented by: [id number] Admin: 07/14/19 18:12 Dose: 2 puffs Documented by: [id number] Admin: 07/14/19 12:05 Dose: 2 puffs Documented by: [id number] Admin: 07/14/19 09:42 Dose: 2 puffs Documented by: [id number] Admin: 07/13/19 20:38 Dose: 2 puffs Documented by: [id number] Admin: 07/13/19 16:49 Dose: 2 puffs Documented by: [id number] Admin: 07/13/19 13:14 Dose: 2 puffs Documented by: [id number] Admin: 07/13/19 08:15 Dose: 2 puffs Documented by: [id number] Admin: 07/12/19 21:47 Dose: 2 puffs Documented by: [id number] Aspirin (Ecotrin) 325 mg PO [facility] Stop: 08/12/19 08:59 Last Admin: 07/25/19 10:27 Dose: 325 mg Documented by: [id number] Admin: 07/24/19 08:08 Dose: 325 mg Documented by: [id number] Admin: 07/23/19 08:14 Dose: 325 mg Documented by: [id number] Admin: 07/22/19 09:51 Dose: 325 mg Documented by: [id number] Admin: 07/21/19 09:26 Dose: Not Given Documented by: [id number] Admin: 07/20/19 08:22 Dose: 325 mg Documented by: [id number] Admin: 07/19/19 08:42 Dose: 325 mg Documented by: [id number] Admin: 07/18/19 08:53 Dose: 325 mg Documented by: [id number] Admin: 07/17/19 08:51 Dose: 325 mg Documented by: [id number] Admin: 07/16/19 08:01 Dose: 325 mg Documented by: [id number] Admin: 07/15/19 08:14 Dose: 325 mg Documented by: [id number] Admin: 07/14/19 12:38 Dose: Not Given Documented by: [id number] Admin: 07/13/19 08:16 Dose: 325 mg Documented by: [id number] Docusate Sodium (Colace) 100 mg PO BID [facility] Stop: 08/17/19 11:14 Last Admin: 07/25/19 10:27 Dose: 100 mg Documented by: [id number] Admin: 07/24/19 21:31 Dose: 100 mg Documented by: [id number] Admin: 07/24/19 09:47 Dose: 100 mg Documented by: [id number] Admin: 07/23/19 20:54 Dose: 100 mg Documented by: [id number] Admin: 07/23/19 08:14 Dose: 100 mg Documented by: [id number] Admin: 07/22/19 20:27 Dose: Not Given Documented by: [id number] Admin: 07/22/19 09:51 Dose: 100 mg Documented by: [id number] Admin: 07/22/19 00:09 Dose: Not Given Documented by: [id number] Admin: 07/21/19 09:26 Dose: Not Given Documented by: [id number] Admin: 07/20/19 20:34 Dose: 100 mg Documented by: [id number] Admin: 07/20/19 08:22 Dose: 100 mg Documented by: [id number] Admin: 07/19/19 19:52 Dose: 100 mg Documented by: [id number] Admin: 07/19/19 08:42 Dose: 100 mg Documented by: [id number] Admin: 07/18/19 21:42 Dose: 100 mg Documented by: [id number] Admin: 07/18/19 12:05 Dose: 100 mg Documented by: [id number] Empagliflozin (Jardiance) 1 ea PO DAILY [facility] Stop: 08/23/19 08:59 Last Admin: 07/25/19 10:27 Dose: 1 ea Documented by: [id number] Admin: 07/24/19 08:09 Dose: 1 ea Documented by: [id number] Gabapentin (Neurontin) 800 mg PO TID [facility] Stop: 08/14/19 20:59 Last Admin: 07/25/19 12:39 Dose: 800 mg Documented by: [id number] Admin: 07/25/19 10:27 Dose: 800 mg Documented by: [id number] Admin: 07/24/19 20:10 Dose: 800 mg Documented by: [id number] Admin: 07/24/19 13:47 Dose: 800 mg Documented by: [id number] Admin: 07/24/19 08:08 Dose: 800 mg Documented by: [id number] Admin: 07/23/19 20:54 Dose: 800 mg Documented by: [id number] Admin: 07/23/19 14:22 Dose: 800 mg Documented by: [id number] Admin: 07/23/19 08:13 Dose: 800 mg Documented by: [id number] Admin: 07/22/19 20:25 Dose: 800 mg Documented by: [id number] Admin: 07/22/19 13:54 Dose: 800 mg Documented by: [id number] Admin: 07/22/19 09:51 Dose: 800 mg Documented by: [id number] Admin: 07/22/19 00:10 Dose: Not Given Documented by: [id number] Admin: 07/21/19 18:02 Dose: Not Given Documented by: [id number] Admin: 07/21/19 09:26 Dose: Not Given Documented by: [id number] Admin: 07/20/19 20:34 Dose: 800 mg Documented by: [id number] Admin: 07/20/19 14:03 Dose: 800 mg Documented by: [id number] Admin: 07/20/19 08:22 Dose: 800 mg Documented by: [id number] Admin: 07/19/19 19:52 Dose: 800 mg Documented by: [id number] Admin: 07/19/19 13:49 Dose: 800 mg Documented by: [id number] Admin: 07/19/19 08:42 Dose: 800 mg Documented by: [id number] Admin: 07/18/19 21:42 Dose: 800 mg Documented by: [id number] Admin: 07/18/19 13:45 Dose: 800 mg Documented by: [id number] Admin: 07/18/19 08:53 Dose: 800 mg Documented by: [id number] Admin: 07/17/19 20:33 Dose: 800 mg Documented by: [id number] Admin: 07/17/19 16:21 Dose: 800 mg Documented by: [id number] Admin: 07/17/19 08:51 Dose: 800 mg Documented by: [id number] Admin: 07/16/19 20:41 Dose: 800 mg Documented by: [id number] Admin: 07/16/19 15:13 Dose: 800 mg Documented by: [id number] Admin: 07/16/19 08:01 Dose: 800 mg Documented by: [id number] Admin: 07/15/19 21:04 Dose: 800 mg Documented by: [id number] Vancomycin HCl 2,000 mg/ (Sodium Chloride) 540 mls @ 200 mls/hr IV Q10H [facility]; Protocol Stop: 07/27/19 18:29 Last Infusion: 07/25/19 11:16 Dose: 0 mls/hr Documented by: [id number] Admin: 07/25/19 10:26 Dose: 200 mls/hr Documented by: [id number] Infusion: 07/25/19 00:24 Dose: 0 mls/hr Documented by: [id number] Admin: 07/24/19 21:32 Dose: 200 mls/hr Documented by: [id number] Infusion: 07/24/19 16:54 Dose: 0 mls/hr Documented by: [id number] Admin: 07/24/19 13:53 Dose: 200 mls/hr Documented by: [id number] Infusion: 07/24/19 05:16 Dose: 0 mls/hr Documented by: [id number] Admin: 07/24/19 02:28 Dose: 200 mls/hr Documented by: [id number] Infusion: 07/23/19 19:47 Dose: 0 mls/hr Documented by: [id number] Admin: 07/23/19 16:35 Dose: 200 mls/hr Documented by: [id number] Infusion: 07/23/19 08:08 Dose: 0 mls/hr Documented by: [id number] Admin: 07/23/19 05:14 Dose: 200 mls/hr Documented by: [id number] Infusion: 07/23/19 00:01 Dose: 0 mls/hr Documented by: [id number] Admin: 07/22/19 20:33 Dose: 200 mls/hr Documented by: [id number] Infusion: 07/22/19 12:58 Dose: 0 mls/hr Documented by: [id number] Admin: 07/22/19 10:16 Dose: 200 mls/hr Documented by: [id number] Infusion: 07/22/19 03:50 Dose: 0 mls/hr Documented by: [id number] Admin: 07/22/19 00:25 Dose: 200 mls/hr Documented by: [id number] Infusion: 07/21/19 16:12 Dose: 200 mls/hr Documented by: [id number] Admin: 07/21/19 13:30 Dose: 200 mls/hr Documented by: [id number] Infusion: 07/21/19 06:10 Dose: 0 mls/hr Documented by: [id number] Admin: 07/21/19 03:16 Dose: 200 mls/hr Documented by: [id number] Infusion: 07/20/19 18:25 Dose: 0 mls/hr Documented by: [id number] Admin: 07/20/19 15:43 Dose: 200 mls/hr Documented by: [id number] Infusion: 07/20/19 08:50 Dose: 0 mls/hr Documented by: [id number] Admin: 07/20/19 05:58 Dose: 200 mls/hr Documented by: [id number] Infusion: 07/19/19 22:34 Dose: 0 mls/hr Documented by: [id number] Admin: 07/19/19 19:52 Dose: 200 mls/hr Documented by: [id number] Infusion: 07/19/19 14:00 Dose: 0 mls/hr Documented by: [id number] Admin: 07/19/19 11:08 Dose: 200 mls/hr Documented by: [id number] Infusion: 07/19/19 03:37 Dose: 0 mls/hr Documented by: [id number] Admin: 07/19/19 00:21 Dose: 200 mls/hr Documented by: [id number] Infusion: 07/18/19 17:18 Dose: 0 mls/hr Documented by: [id number] Admin: 07/18/19 13:45 Dose: 200 mls/hr Documented by: [id number] Infusion: 07/18/19 06:52 Dose: 0 mls/hr Documented by: [id number] Admin: 07/18/19 03:55 Dose: 185 mls/hr Documented by: [id number] Infusion: 07/17/19 21:47 Dose: 0 mls/hr Documented by: [id number] Admin: 07/17/19 18:51 Dose: 200 mls/hr Documented by: [id number] Insulin Aspart (Novolog Flexpen) 0 units SC ACHS [facility] Stop: 08/22/19 11:29 Last Admin: 07/25/19 12:38 Dose: Not Given Documented by: [id number] Admin: 07/25/19 10:23 Dose: Not Given Documented by: [id number] Cosigned by: [id number] Admin: 07/24/19 20:53 Dose: Not Given Documented by: [id number] Cosigned by: [id number] Admin: 07/24/19 17:49 Dose: 3 units Documented by: [id number] Cosigned by: [id number] Admin: 07/24/19 13:47 Dose: 3 units Documented by: [id number] Cosigned by: [id number] Admin: 07/24/19 08:19 Dose: Not Given Documented by: [id number] Cosigned by: [id number] Admin: 07/23/19 20:56 Dose: 1 units Documented by: [id number] Cosigned by: [id number] Admin: 07/23/19 17:12 Dose: 3 units Documented by: [id number] Cosigned by: [id number] Admin: 07/23/19 12:55 Dose: 3 units Documented by: [id number] Cosigned by: [id number] Ioversol (Optiray 320 100ml) 100 ml IV ONCE PRN PRN Reason: Interaction Checking Stop: 07/29/19 02:35 Last Admin: 07/25/19 02:37 Dose: 93 ml Documented by: [id number] Lisinopril (Zestril) 40 mg PO QAM [facility] Stop: 08/12/19 08:59 Last Admin: 07/25/19 10:27 Dose: 40 mg Documented by: [id number] Admin: 07/24/19 08:08 Dose: 40 mg Documented by: [id number] Admin: 07/23/19 08:15 Dose: 40 mg Documented by: [id number] Admin: 07/22/19 08:30 Dose: Not Given Documented by: [id number] Admin: 07/21/19 09:26 Dose: Not Given Documented by: [id number] Admin: 07/20/19 08:22 Dose: 40 mg Documented by: [id number] Admin: 07/19/19 08:42 Dose: 40 mg Documented by: [id number] Admin: 07/18/19 08:53 Dose: 40 mg Documented by: [id number] Admin: 07/17/19 09:09 Dose: 40 mg Documented by: [id number] Admin: 07/16/19 08:01 Dose: 40 mg Documented by: [id number] Admin: 07/15/19 08:14 Dose: 40 mg Documented by: [id number] Admin: 07/14/19 09:43 Dose: 40 mg Documented by: [id number] Admin: 07/13/19 08:16 Dose: 40 mg Documented by: [id number] Metformin HCl (Glucophage) 1,000 mg PO BIDM [facility] Stop: 08/21/19 16:59 Last Admin: 07/25/19 10:24 Dose: Not Given Documented by: [id number] Admin: 07/24/19 17:13 Dose: 1,000 mg Documented by: [id number] Admin: 07/24/19 08:08 Dose: 1,000 mg Documented by: [id number] Admin: 07/23/19 16:37 Dose: 1,000 mg Documented by: [id number] Admin: 07/23/19 08:14 Dose: 1,000 mg Documented by: [id number] Admin: 07/22/19 17:28 Dose: 1,000 mg Documented by: [id number] Miscellaneous Information (Consult) 1 ea N/A UD PRN PRN Reason: Consult Stop: 08/13/19 17:33 Last Admin: 07/21/19 13:30 Dose: 1 ea Documented by: [id number] Morphine Sulfate (Morphine Sulfate) 2 mg IV Q2HWA PRN PRN Reason: Pain Stop: 07/28/19 22:54 Last Admin: 07/25/19 10:40 Dose: 2 mg Documented by: [id number] Admin: 07/24/19 17:10 Dose: 2 mg Documented by: [id number] Admin: 07/24/19 16:35 Dose: 2 mg Documented by: [id number] Morphine Sulfate (Morphine Sulfate) 4 mg IV Q2HWA PRN PRN Reason: Pain Stop: 07/28/19 23:01 Last Admin: 07/25/19 12:45 Dose: 4 mg Documented by: [id number] Admin: 07/25/19 00:23 Dose: 4 mg Documented by: [id number] Admin: 07/24/19 13:41 Dose: 4 mg Documented by: [id number] Warfarin Sodium (Coumadin) 5 mg PO DAILY@1600 RAFA Stop: 08/23/19 15:59 Last Admin: 07/24/19 17:12 Dose: 5 mg Documented by: [id number] Zolpidem Tartrate (Ambien) 5 mg PO HS PRN PRN Reason: Sleep Stop: 08/20/19 00:00 Last Admin: 07/21/19 00:44 Dose: 5 mg Documented by: [id number] Coding Level of Care Code 14608 [facility] Intl Hosp Care Lvl 2
--- NOTE | 2019-07-25 16:10 | Infectious Disease Progress Nt ---
Date of Service July 25, 2019 Assessment & Plan (1) Streptococcal sepsis: Patient with streptococcal sepsis, with positive wound culture for MRSA as well. Now status post removal of infected graft. Patient will be continued on current IV antibiotics, likely will require at least 2 weeks of IV therapy. Will follow. Subjective Patient seen for follow-up of streptococcal sepsis and groin infection. Now POD #4 after removal of L groin bpg and revision of ax bifem bypass and L fem to post tib bypass using bovine grafts and with L groin wound vac placement,. Patient complaining of abdominal pain, CT scan obtained which shows evidence of hematoma formation, one with active. Review of Systems Review of Systems: All systems reviewed & are unremarkable except as noted in HPI & below Physical Exam Constitutional: WD/WN, vitals as above comfortable; no acute distress Eyes: PERRL, conjunctivae normal, anicteric sclerae ENMT: external ear and nose normal, oropharynx normal Neck: trachea midline, no thyromegaly neck nontender Respiratory: normal respiratory effort, lungs clear to auscultation normal percussion; does not use accessory muscles Cardiovascular: Rate/Rhythm: regular rate and regular rhythm Heart Sounds: normal S1 and normal S2; no gallop, no murmur and no cardiac rub Vessels: normal peripheral pulses; no JVD Gastrointestinal (Abdomen): normal bowel sounds, soft, nontender, no hepatosplenomegaly Musculoskeletal: no cyanosis or clubbing, extremities motor strength 5/5 Spine: thoracic spine normal to inspection and lumbar spine normal to inspection; no cervical spinal tenderness Skin: no rashes, warm and dry normal turgor and + wound (Dressing intact left groin) Neurologic: patellar DTR's 2+ bilat, sensation intact no focal motor deficits Psychiatric: A+Ox3, euthymic affect Orientation: cooperative Lymphatic: no cervical or axillary lymphadenopathy no inguinal lymphadenopathy Results & Data Vital Signs (Past 12 Hours) Vital Signs Temp Pulse Resp BP Pulse Ox 07/25/19 15:39 36.6 C 85 20 110/57 L 96 07/25/19 11:58 36.4 C L 80 18 136/76 98 07/25/19 07:47 36.5 C 70 18 124/76 92 07/25/19 05:38 36.4 C L 85 16 129/69 95 PG Care Time/CCT Total # of Minutes Spent Total Time Spent with Patient: Total time spent is greater than 50% in coordination of care (as documented) at patient's floor/unit and/or counseling patient: (1) Streptococcal sepsis Sepsis acute organ dysfunction status: unspecified Qualified Code(s): A40.9 - Streptococcal sepsis, unspecified
[2019-07-25] MEDS ORDERED: INSULIN GLARGINE SOLOSTAR 100 UNITS/ML 3 ML PEN SC ONE (21:00)
[2019-07-26] MEDS: VANCOMYCIN HCL 2,000 MG in SODIUM CHLORIDE 0.9% 500 ML IV SCH ×3 (05:11→23:40)
[2019-07-26] MEDS: MoRPHine SULFATE 4 MG/ML 1 ML CARP\\VIAL IV PRN (05:11)
[2019-07-26 06:33] LABS: Basophils # (auto) 0.03 K/uL (0-0.2); Basophils % (auto) 0.4 %; Eosinophils # (auto) 0.17 K/uL (0-0.5); Hematocrit (blood only) 25.8 % (42-52); Hemoglobin 8.8 g/dL (14.0-18.0); Immature Granulocytes # (auto) 0.03 K/uL (0.00-0.02); Immature Granulocytes % (auto) 0.4 %; Lymphocytes # (auto) 1.47 K/uL (1.2-3.4); Lymphocytes % (auto) 17.7 %; Mean Corpuscular Hemoglobin 32.1 pg (25-34); Mean Corpuscular Hgb Conc 34.1 g/dL (32-36); Mean Corpuscular Volume 94.2 fL (80-100); Mean Platelet Volume 8.5 fL (7.4-10.4); Monocytes # (auto) 0.76 K/uL (0.11-0.59); Monocytes % (auto) 9.1 %; Neutrophils # (auto) 5.85 K/uL (1.4-6.5); Neutrophils % (auto) 70.4 %; Platelet Count 227 K/uL (130-400); RDW Coefficient of Variation 16.7 % (11.5-14.5); RDW Standard Deviation 56.7 fL (36.4-46.3); Red Blood Count 2.74 M/uL (4.7-6.1); White Blood Count 8.31 K/uL (4.8-10.8)
[2019-07-26 06:55] LABS: INR 3.9 (0.9-1.1); Prothrombin Time 36.1 Seconds (9.0-12.0)
[2019-07-26 07:10] LABS: BUN Creatinine Ratio 17.4 (10-20); Calcium 8.6 mg/dl (8.5-10.1); Creatinine Clr Calc Pharmacy 226.3 ml/min; Est GFR (African American) 147.3; Est GFR (Non-African American) 127.1; Potassium 3.7 mmol/L (3.5-5.1)
--- NOTE | 2019-07-26 08:07 | Family Medicine Progress Note ---
Date of Service July 26, 2019 Assessment & Plan (1) Infected prosthetic vascular graft: 59yo M PMH HTN, DM with neuropathy, COPD, PAD with bilat LE ischemia, h/o fem/fem bypass, h/o ax/fem bypass, admitted 07/14 for bleeding incision with sepsis, +Blood cx (Gram + cocci and staph), developed L groin incision infection with MRSA. Medicine consulted for chronic medical issues and glucose management. #Streptococcal sepsis, resolved: -S/P femoral bypass revision and insertion of wound VAC to left groin (07/21/19) secondary to recent MRSA sepsis and infection of graft -Infectious disease consulted, appreciate recs -Continue vancomycin, will need at least 2 weeks of IV antibiotics -We will continue to follow -Need to clarify with her IV antibiotics will continue for 2 weeks from date of consultation versus 2 weeks in total. -Has been on vancomycin for 9 days since admission -Vascular managing postoperative care -Postop day 5 -Wound VAC changed today, provided PRN Dilaudid for wound VAC change -Patient is very deconditioned, encourage PT #Anticoagulation Anticoagulation per vascular surgery. Patient was on a heparin GTT, started on warfarin concurrently until goal INR is achieved.Was previously on 10 mg p.o. daily, INR this morning was 3.2, warfarin decreased to 5 mg daily will reassess INR tomorrow ordered. -INR: 3.2 -> 4.0 ->3.9 -Anticoagulation per vascular surgery -Hold warfarin 5 mg today secondary to supratherapeutic INR of 4.0 #Post-op anemia and hematoma 2U PRBCs administered 07/23/19 due to 2 point drop in Hb (10.6-->8.6),Dr. Alanis made aware of bleeding from incision, directed to apply pressure and monitor. -Night resident contacted to evaluate suspected hematoma with active bleeding, CT scan obtained demonstrating possible bleeding. Physical exam not consistent with significant bleed. -Hemoglobin on 07/25 dropped to 8.9 from 9.7 this likely represents a combination of dilutional secondary to being 10 L positive. -Hemoglobin stable today at 8.3 -Continue to trend CBC #T2DM -On multiple home agents. A1C in June was 8.3. -Is tolerating T2DM diet. -Glycemic consult placed; pharmacy managing further recommendations. -Continue to hold home agents - Metformin, Toujeo, Trulicity and Jardiance -Continue home Neurontin for neuropathic pain #COPD (chronic obstructive pulmonary disease) -COPD without acute exacerbation. Adequate oxygenation on room air. No wheeze. -Continue Combivent -Continue Albuterol PRN -Continue to monitor #Hypertension: -Blood pressure stable at present -Continue lisinopril 40 mg #JAMES on CPAP: -States he is compliant with CPAP at home. Does not wish to wear it here -Monitor saturations #Iatrogenic hypervolemia Given significant fluids in the postoperative period, patient was total of 10 L positive. Gave one-time dose of 20 mg of Lasix on 07/25 patient diuresed 2 L. Patient still net +8 L. -Continue diuresis with 20 mg of Lasix -Monitor I's and O's -Given 40 mEq potassium for hypokalemia secondary to diuresis #Depression 2/2 to medical condition Patient is depressed secondary to his prolonged hospitalization, multiple medical complications. Patient endorsed feeling like he wanted to end it all yesterday. Psychiatry was consulted, they do not feel that the patient is actively suicidal, and this was in fact use of hyperbole. Patient did not endorse to primary team during physical exam this morning that he is more depressed than he ever has been, however he feels that once he begins progressing towards discharge he will feel significant be better. We will continue to monitor, patient not requesting medical therapy currently. FENa: Type II diabetic diet Code Status: DNR/DNI DVT PPX: Anticoagulation held today secondary to supratherapeutic INR PT/OT: Consulted Dispo: U Houston Mark MD PGY 2, FCM This chart was completed utilizing [employer] voice recognition software. Grammatical errors, random word insertions, pronoun errors, and in complete sentences are an occasional consequence of the system. Any questions or concerns about the content, text, or information contained within the body of this dictation should be addressed directly to the physician for clarification. Supervising Physician Co-Signing Physician Notes Patient seen and examined with Dr. Mark. I agree with their exam findings, review of systems, assessment and plan. I have personally reviewed the lab work and imaging from today. patient really depressed, he said that he saw his wounds for the first time last night and he could not believe what he saw he does not feel like there is an end in sight his pain is bad, excruciating with wound vac changes eating well, still no BM, urinating well, responding well to the Lasix still Exam: overweight male, NAD, lungs CTA bilaterally with some decreased breath sounds in the bases, no distress, regular S1 S2 abd soft, NT, ND, extremities are warm, left leg appears well perfused, slightly swollen compared to right leg, + edema in legs bilaterally but improving from yesterday - Acute blood loss anemia in post operative setting: Hb stable at 8.8, BP stable, will continue to monitor - Constipation: bowel regimen with Miralax, increased to BID encourage patient to get OOB if no BM by tomorrow will try either suppository or Relistor - Volume overload: due to transfusion, IV fluids at time of admission, excellent response to Lasix at -2000mL will give another dose today with potassium supplementation for full details see resident note Subjective Patient laying in bed this morning in no acute distress. Patient reports that yesterday when he said he wanted to end it all he was using hyperbole, the patient is fairly depressed about his overall medical condition. This to be expected with his prolonged hospital stay, multiple complications. Patient has not had a bowel movement yet, despite twice daily MiraLAX, and Colace. Patient reports he believes he will have a bowel movement the last ambulate. Patient been cleared by vascular surgery for ambulation, so hopeful bowel movement will occur. Otherwise patient reports significant pain associated with his wound VAC changes, provided PRN Dilaudid for this., Patient diuresed well yesterday, -2 L, will continue to diurese until euvolemic. All questions answered, no acute concerns. Physical Exam Physical Exam: General: Middle-age male laying in bed no acute distress HEENT: Normocephalic atraumatic Neck: Normal vision inspection Cardiac: Regular rate and rhythm, I did not appreciate significant murmurs rubs or gallops, neg pedal edema bilaterally, negative calf tenderness that is not related to surgery, negative JVD Respiratory: Clear to auscultation bilaterally with symmetrical chest rise without significant wheezes rales or rhonchi GI: Bowel sounds present, nontender to palpation, not distended MSK: Moves extremities Skin: surgical sites clean dry and intact lower extremity otherwise warm, well perfused Neuro: Alert and oriented x4 Psych: Depressed, calm, cooperative Results & Data Vital Signs (Past 12 Hours) Vital Signs Temp Pulse Resp BP Pulse Ox 07/26/19 03:51 36.5 C 85 20 159/77 H 94 07/25/19 23:14 37.2 C 88 18 111/62 94 Laboratory Results 07/26/19 07/26/19 07/26/19 Range/Units 07:44 06:15 06:15 WBC 8.31 (4.8-10.8) K/uL RBC 2.74 L (4.7-6.1) M/uL Hgb 8.8 L (14.0-18.0) g/dL Hct 25.8 L (42-52) % MCV 94.2 (80-100) fL MCH 32.1 (25-34) pg MCHC 34.1 (32-36) g/dL RDW Std Deviation 56.7 H (36.4-46.3) fL RDW Coeff of Maira 16.7 H (11.5-14.5) % Plt Count 227 (130-400) K/uL MPV 8.5 (7.4-10.4) fL Immature Gran % (Auto) 0.4 % Neut % (Auto) 70.4 % Lymph % (Auto) 17.7 % Ralls % (Auto) 9.1 % Eos % (Auto) 2.0 % Baso % (Auto) 0.4 % Immature Gran # (Auto) 0.03 H (0.00-0.02) K/uL Neut # (Auto) 5.85 (1.4-6.5) K/uL Lymph # (Auto) 1.47 (1.2-3.4) K/uL Ralls # (Auto) 0.76 H (0.11-0.59) K/uL Eos # (Auto) 0.17 (0-0.5) K/uL Baso # (Auto) 0.03 (0-0.2) K/uL PT (9.0-12.0) Seconds INR (0.9-1.1) Sodium 141 (136-145) mmol/L Potassium 3.7 (3.5-5.1) mmol/L Chloride 109 H (98-107) mmol/L Carbon Dioxide 25 (21-32) mmol/L Anion Gap 7.0 (3-11) BUN 8 (7-18) mg/dl Creatinine 0.43 L (0.6-1.4) mg/dl Est Cr Clr Drug Dosing 226.3 ml/min Est GFR ( Amer) 147.3 Est GFR (Non-Af Amer) 127.1 BUN/Creatinine Ratio 17.4 (10-20) Glucose 93 (70-99) mg/dl POC Glucose 103 H (70-99) Calcium 8.6 (8.5-10.1) mg/dl 07/26/19 07/25/19 07/25/19 Range/Units 06:15 20:35 16:18 WBC (4.8-10.8) K/uL RBC (4.7-6.1) M/uL Hgb (14.0-18.0) g/dL Hct (42-52) % MCV (80-100) fL MCH (25-34) pg MCHC (32-36) g/dL RDW Std Deviation (36.4-46.3) fL RDW Coeff of Maira (11.5-14.5) % Plt Count (130-400) K/uL MPV (7.4-10.4) fL Immature Gran % (Auto) % Neut % (Auto) % Lymph % (Auto) % Ralls % (Auto) % Eos % (Auto) % Baso % (Auto) % Immature Gran # (Auto) (0.00-0.02) K/uL Neut # (Auto) (1.4-6.5) K/uL Lymph # (Auto) (1.2-3.4) K/uL Ralls # (Auto) (0.11-0.59) K/uL Eos # (Auto) (0-0.5) K/uL Baso # (Auto) (0-0.2) K/uL PT 36.1 H (9.0-12.0) Seconds INR 3.9 H (0.9-1.1) Sodium (136-145) mmol/L Potassium (3.5-5.1) mmol/L Chloride (98-107) mmol/L Carbon Dioxide (21-32) mmol/L Anion Gap (3-11) BUN (7-18) mg/dl Creatinine (0.6-1.4) mg/dl Est Cr Clr Drug Dosing ml/min Est GFR ( Amer) Est GFR (Non-Af Amer) BUN/Creatinine Ratio (10-20) Glucose (70-99) mg/dl POC Glucose 123 H 105 H (70-99) Calcium (8.5-10.1) mg/dl 07/25/19 Range/Units 11:31 WBC (4.8-10.8) K/uL RBC (4.7-6.1) M/uL Hgb (14.0-18.0) g/dL Hct (42-52) % MCV (80-100) fL MCH (25-34) pg MCHC (32-36) g/dL RDW Std Deviation (36.4-46.3) fL RDW Coeff of Maira (11.5-14.5) % Plt Count (130-400) K/uL MPV (7.4-10.4) fL Immature Gran % (Auto) % Neut % (Auto) % Lymph % (Auto) % Ralls % (Auto) % Eos % (Auto) % Baso % (Auto) % Immature Gran # (Auto) (0.00-0.02) K/uL Neut # (Auto) (1.4-6.5) K/uL Lymph # (Auto) (1.2-3.4) K/uL Ralls # (Auto) (0.11-0.59) K/uL Eos # (Auto) (0-0.5) K/uL Baso # (Auto) (0-0.2) K/uL PT (9.0-12.0) Seconds INR (0.9-1.1) Sodium (136-145) mmol/L Potassium (3.5-5.1) mmol/L Chloride (98-107) mmol/L Carbon Dioxide (21-32) mmol/L Anion Gap (3-11) BUN (7-18) mg/dl Creatinine (0.6-1.4) mg/dl Est Cr Clr Drug Dosing ml/min Est GFR ( Amer) Est GFR (Non-Af Amer) BUN/Creatinine Ratio (10-20) Glucose (70-99) mg/dl POC Glucose 137 H (70-99) Calcium (8.5-10.1) mg/dl Medications Administered Current Inpatient Medications Acetaminophen (Tylenol) 650 mg PO Q4H PRN PRN Reason: Pain or Fever Stop: 08/11/19 15:32 Hydrocodone Bitart/Acetaminophen ([place] 10/325) 1 tab PO QID PRN PRN Reason: Pain Stop: 07/26/19 15:38 Last Admin: 07/25/19 23:45 Dose: 1 tab Documented by: Albuterol (Ventolin Hfa) 2 puffs INH QID PRN PRN Reason: Shortness Of Breath Stop: 08/11/19 15:38 Albuterol (Combivent Respimat) 2 puffs INH QID RAFA Stop: 08/11/19 20:59 Last Admin: 07/25/19 20:27 Dose: 2 puffs Documented by: Aspirin (Ecotrin) 325 mg PO QAM RAFA Stop: 08/12/19 08:59 Last Admin: 07/25/19 10:27 Dose: 325 mg Documented by: Dextrose (Dextrose 50%) 25 - 50 ml IV UD PRN; Protocol PRN Reason: Hypoglycemia Protocol Stop: 08/17/19 10:44 Docusate Sodium (Colace) 100 mg PO BID RAFA Stop: 08/17/19 11:14 Last Admin: 07/25/19 20:27 Dose: 100 mg Documented by: Empagliflozin (Jardiance) 1 ea PO DAILY RAFA Stop: 08/23/19 08:59 Last Admin: 07/25/19 10:27 Dose: 1 ea Documented by: Gabapentin (Neurontin) 800 mg PO TID RAFA Stop: 08/14/19 20:59 Last Admin: 07/25/19 20:27 Dose: 800 mg Documented by: Glucagon (Glucagen) 1 mg IM UD PRN; Protocol PRN Reason: Hypoglycemia Protocol Stop: 08/17/19 10:44 Glucose (Glucose 40%) 15 - 30 gm PO UD PRN; Protocol PRN Reason: Hypoglycemia Protocol Stop: 08/17/19 10:44 Glucose (Dex4 Glucose) 4 - 8 tabs PO UD PRN; Protocol PRN Reason: Hypoglycemia Protocol Stop: 08/17/19 10:44 Vancomycin HCl 2,000 mg/ (Sodium Chloride) 540 mls @ 200 mls/hr IV Q10H RAFA; Protocol Stop: 07/27/19 18:29 Last Admin: 07/26/19 05:11 Dose: 200 mls/hr Documented by: Sodium Chloride (Nss) 250 mls @ 15 mls/hr IV .[id number] PRN PRN Reason: For Transfusion Stop: 08/22/19 09:56 Insulin Aspart (Novolog Flexpen) 0 units SC ACHS [facility] Stop: 08/22/19 11:29 Last Admin: 07/25/19 20:54 Dose: Not Given Documented by: Ioversol (Optiray 320 100ml) 100 ml IV ONCE PRN PRN Reason: Interaction Checking Stop: 07/29/19 02:35 Last Admin: 07/25/19 02:37 Dose: 93 ml Documented by: Lisinopril (Zestril) 40 mg PO QAM [facility] Stop: 08/12/19 08:59 Last Admin: 07/25/19 10:27 Dose: 40 mg Documented by: Metformin HCl (Glucophage) 1,000 mg PO BIDM [facility] Stop: 08/21/19 16:59 Last Admin: 07/25/19 10:24 Dose: Not Given Documented by: Miscellaneous (Carbohydrates For Hypoglycemia) 15 - 30 gm PO UD PRN PRN Reason: Hypoglycemia Treatment Stop: 08/17/19 10:44 Miscellaneous Information (Consult) 1 ea N/A UD PRN PRN Reason: Consult Stop: 08/13/19 17:33 Last Admin: 07/21/19 13:30 Dose: 1 ea Documented by: Miscellaneous Information (Consult Glycemic Management Pharmacy) 1 ea N/A UD PRN PRN Reason: Consult Stop: 08/20/19 15:59 Morphine Sulfate (Morphine Sulfate) 2 mg IV Q2HWA PRN PRN Reason: Pain Stop: 07/28/19 22:54 Last Admin: 07/25/19 10:40 Dose: 2 mg Documented by: Morphine Sulfate (Morphine Sulfate) 4 mg IV Q2HWA PRN PRN Reason: Pain Stop: 07/28/19 23:01 Last Admin: 07/26/19 05:11 Dose: 4 mg Documented by: Nitroglycerin (Nitrostat) 0.4 mg SL UD PRN PRN Reason: Chest Pain Stop: 08/11/19 15:32 Polyethylene Glycol (Miralax Powder Packet) 17 gm PO BID PRN PRN Reason: Constipation Stop: 08/17/19 11:02 Warfarin Sodium (Coumadin) 5 mg PO DAILY@1600 [facility] Stop: 08/23/19 15:59 Last Admin: 07/24/19 17:12 Dose: 5 mg Documented by: Zolpidem Tartrate (Ambien) 5 mg PO HS PRN PRN Reason: Sleep Stop: 08/20/19 00:00 Last Admin: 07/21/19 00:44 Dose: 5 mg Documented by: PG Care Time/CCT Total # of Minutes Spent Total Time Spent with Patient: Total time spent is greater than 50% in coordination of care (as documented) at patient's floor/unit and/or counseling patient: Resident Activity Tracking Resident Involvement: Resident Care Provided Care Provided: Adult Hospital Medicine
[2019-07-26] MEDS: INSULIN ASPART 100 UNITS/ML 3 ML PEN SC SCH ×4 (08:43→20:56)
[2019-07-26] MEDS: IPRATROPIUM BROMIDE/ALBUTEROL respimat INH INH SCH ×4 (08:44→20:54)
[2019-07-26] MEDS: EMPAGLIFLOZIN 10 MG PO SCH (08:45)
[2019-07-26] MEDS: GABAPENTIN 800 MG TAB PO SCH ×3 (08:46→20:54)
[2019-07-26] MEDS: ASPIRIN 325 MG ECTAB PO SCH (08:46)
[2019-07-26] MEDS: DOCUSATE SODIUM 100 MG CAP PO SCH ×2 (08:47→21:03)
[2019-07-26] MEDS: lisinopriL 40 MG TAB PO SCH (08:47)
[2019-07-26] MEDS ORDERED: FUROSEMIDE 20 MG in SYRINGE 0 ML IV ONE (11:15)
[2019-07-26] MEDS ORDERED: HYDROmorphone INJ 1 MG/ML SYRINGE IV SCH (11:45)
[2019-07-26] MEDS: HYDROCODONE/ACETAMINOPHEN 10/325 TAB PO PRN ×3 (12:46→23:40)
[2019-07-26] MEDS: POTASSIUM CHLORIDE 20 MEQ TABCR PO SCH ×2 (13:29→13:30)
--- NOTE | 2019-07-26 14:18 | Surgery Progress Note ---
Date of Service July 26, 2019 Assessment & Plan (1) Infected prosthetic vascular graft: Pt overall improving. VS remain stable, hgb stable from yesterday. Wounds improving as well. Overall, pt is very deconditioned. Continue to monitor. Will need abx for at least 2 weeks per ID. (2) Acute blood loss as cause of postoperative anemia: Hgb 8.8 today, 8.9 yesterday. No indications of any further active bleeding. INR still elevated, continune to hold coumadin. Subjective 59 yo m with severe PAD, now POD #5 after removal of L groin bpg and revision of ax bifem bypass and L fem to post tib bypass using bovine grafts and with L groin wound vac placement, seen in f/u today. Patient states pain is slightly improved overall and is controlled with medications. Mood is improved since he was able to get OOB today. Denies any other new complaints. Review of Systems Review of Systems: All systems reviewed & are unremarkable except as noted in HPI & below Physical Exam Constitutional: WD/WN, vitals as above + ill appearing (chronically); no acute distress Respiratory: normal respiratory effort, lungs clear to auscultation Cardiovascular: Rate/Rhythm: regular rate and regular rhythm Vessels: + abnormal peripheral pulses (dopplerable) Gastrointestinal (Abdomen): Inspection/Auscultation: abdomen normal to inspection and normal bowel sounds Percussion/Palpation: abdomen nontender Musculoskeletal: Extremities: strength 5/5 throughout Skin: + wound (L groin wound good granulation, moderate draiange.most other wounds dry, so) Psychiatric: Orientation: alert and oriented x 3 Affect: + anxious affect, + irritable affect and + angry affect Results & Data Vital Signs (Past 12 Hours) Vital Signs Temp Pulse Pulse Resp BP BP Pulse Ox 07/26/19 11:21 36.7 C 77 18 120/74 94 07/26/19 08:26 36.8 C 93 H 18 119/68 94 07/26/19 08:00 83 07/26/19 03:51 36.5 C 85 20 159/77 H 94
--- NOTE | 2019-07-26 14:44 | Pharmacy Report ---
Pharmacy Glycemic Short Note 2 - Date of Service July 26, 2019 - Glycemic Short BSG Results (Last 24 hours): 07/25/19 07/25/19 07/26/19 16:18 20:35 06:15 Glucose 93 POC Glucose 105 H 123 H 07/26/19 07/26/19 07:44 11:28 Glucose POC Glucose 103 H 119 H OUTPATIENT ANTIDIABETIC REGIMEN: * Toujeo 15 units qPM * Metformin 1000 mg BID * Jardiance 10 mg qam * Trulicity weekly ASSESSMENT: 07/26 * BSGs 101-137 over the last 24 hours and received 20 units of insulin, 15 of which was basal * Fasting this AM 103 with 15 units of lantus, trending down currently below goal of 110, will slightly reduce tonight's dose with scale * Prandial BSGs within goal range, will continue current correction factor/carb ratio 07/25 * bsgs 100-123 over the last 24 hours, and received 21 units of insulin (this is ~half of previous day requirements) * Fasting this AM 101, lantus scale for this evening * Metformin held as patient received CT with contrast early this morning * Loosened correction factor/carb ratio as insulin needs reduced yesterday 07/24 * POD #3, continues on vancomycin for strep bacteremia/MRSA infected graft, on heparin infusion * BSGs have been trending down, Patient received 45 units of insulin yesterday (25 of basal; 20 of novolog) * Fasting today within goal range, attempting to transition basal to evening dosing per patient's home regimen, will do scale with dinner today * BSGs ranging from 100-197 since yesterday at lunch, carb ratio tightened to 6 yesterday, will slightly loosen with lunch, restarted home oral medications PLAN FOR INPATIENT GLYCEMIC CONTROL: * Jardiance 10 mg * * Basal insulin * Lantus * 10 units BSG <110 * 12 units BSG 110 and greater * Bolus insulin * NovoLog per scale ACHS or Q6hrs while NPO * Goal Range: Low 110 mg/dL - High 140 mg/dL * Correction Factor: 25 mg/dL/unit * Nutritional / Prandial insulin per carb ratio of 1 unit per 8 grams CHO consumed PLAN FOR DISCHARGE: A1c = 8.3% on 06/15/19 Goal A1c = 7% based on age and comorbidities * Patient currently on triple therapy + basal insulin, if adequate control not achieved with this regimen, could potentially initiate prandial insulin with meals Support Patient Self-Management Healthy Lifestyle (diet, exercise, and smoking cessation) Disease self-management (SMBG) Prevention of complications (BP, Lipid goals, Immunizations)
[2019-07-26] MEDS ORDERED: INSULIN GLARGINE SOLOSTAR 100 UNITS/ML 3 ML PEN SC ONE (21:00)
[2019-07-27] MEDS: HYDROCODONE/ACETAMINOPHEN 10/325 TAB PO PRN ×4 (04:48→20:33)
--- NOTE | 2019-07-27 08:16 | Family Medicine Progress Note ---
Date of Service July 27, 2019 Assessment & Plan (1) Infected prosthetic vascular graft: 59yo M PMH HTN, DM with neuropathy, COPD, PAD with bilat LE ischemia, h/o fem/fem bypass, h/o ax/fem bypass, admitted 07/14 for bleeding incision with sepsis, +Blood cx (Gram + cocci and staph), developed L groin incision infection with MRSA. Medicine consulted for chronic medical issues and glucose management. #Streptococcal sepsis, resolved: -S/P femoral bypass revision and insertion of wound VAC to left groin (07/21/19) secondary to recent MRSA sepsis and infection of graft -Infectious disease consulted, appreciate recs -Continue vancomycin, will need at least 2 weeks of IV antibiotics -We will continue to follow -Need to clarify with her IV antibiotics will continue for 2 weeks from date of consultation versus 2 weeks in total. -Has been on vancomycin for 10 days since admission -Vascular managing postoperative care -Postop day 6 -Wound VAC changed today, provided PRN Dilaudid for wound VAC change -Patient is very deconditioned, encourage PT #Anticoagulation Anticoagulation per vascular surgery. Patient was on a heparin GTT, started on warfarin concurrently until goal INR is achieved.Was previously on 10 mg p.o. daily, INR this morning was 3.2, warfarin decreased to 5 mg daily will reassess INR tomorrow ordered. -INR: 3.2 -> 4.0 ->3.9->2.8 -now therapeutic -Anticoagulation per vascular surgery #Constipation Patient reports profound constipation despite being on scheduled MiraLAX twice daily and Colace. Likely component of his constipation secondary to opiates for pain control. We had a discussion about trying to limit his opiate consumption as this will likely worsen his constipation. Patient reports that it is been 2 weeks since he had an adequate bowel movement he is amenable to either further medical therapy or enema. Patient had successful bowel movement status post initiation of Relistor 07/27 -Scheduled MiraLAX twice daily -Scheduled Colace twice daily -Continue daily Relistor until no longer requiring opioid for analgesia #Post-op anemia and hematoma 2U PRBCs administered 07/23/19 due to 2 point drop in Hb (10.6-->8.6),Dr. Alanis made aware of bleeding from incision, directed to apply pressure and monitor. 07/24 Night resident contacted to evaluate suspected hematoma with active bleeding, CT scan obtained demonstrating possible bleeding. Physical exam not consistent with significant bleed. Hemoglobin on 07/25 dropped to 8.9 from 9.7 this likely represents a combination of dilutional secondary to being 10 L positive. -Hemoglobin stable, no signs or symptoms of anemia -Continue to trend CBC -Wound vac change tomorrow #T2DM -On multiple home agents. A1C in June was 8.3. -Is tolerating T2DM diet. -Glycemic consult placed; pharmacy managing further recommendations. -Continue to hold home agents - Metformin, Toujeo, Trulicity and Jardiance -Continue home Neurontin for neuropathic pain #COPD (chronic obstructive pulmonary disease) -COPD without acute exacerbation. Adequate oxygenation on room air. No wheeze. -Continue Combivent -Continue Albuterol PRN -Continue to monitor #Hypertension: -Blood pressure well controlled -Continue lisinopril 40 mg #JAMES on CPAP: -States he is compliant with CPAP at home. Does not wish to wear it here -Monitor saturations #Iatrogenic hypervolemia Given significant fluids in the postoperative period, patient was total of 10 L positive. Gave one-time dose of 20 mg of Lasix on 07/25 patient diuresed 2 L. 07/26 another 0.5L patient still net +7.5 L. -Continue diuresis with 20 mg of Lasix -Monitor I's and O's -Given 40 mEq potassium for hypokalemia secondary to diuresis #Depression 2/2 to medical condition Patient is depressed secondary to his prolonged hospitalization, multiple medical complications. Patient endorsed feeling like he wanted to end it all yesterday. Psychiatry was consulted, they do not feel that the patient is actively suicidal, and this was in fact use of hyperbole. Patient did not endorse to primary team during physical exam this morning that he is more depressed than he ever has been, however he feels that once he begins progressing towards discharge he will feel significant be better. We will continue to monitor, patient not requesting medical therapy currently. -mood improved s/p bm FENa: Type II diabetic diet Code Status: DNR/DNI DVT PPX: INR therapeutic at 2.9 anticoagulation per vascular team PT/OT: Consulted Dispo: U [place] Mark MD PGY 2, [facility] This chart was completed utilizing [employer] voice recognition software. Grammatical errors, random word insertions, pronoun errors, and in complete sentences are an occasional consequence of the system. Any questions or concerns about the content, text, or information contained within the body of this dictation should be addressed directly to the physician for clarification. Supervising Physician Co-Signing Physician Notes Patient seen and examined with Dr. Mark. I agree with their exam findings, review of systems, assessment and plan. I have personally reviewed the lab work and imaging from today. patient in better spirits he was able to have a bowel movement this afternoon he is making urine with Lasix, will give one more dose c/o rash on gluteal clefts, appears to be fungal Exam: overweight male, NAD, lungs CTA bilaterally with some decreased breath sounds in the bases, no distress, regular S1 S2 abd soft, NT, ND, extremities are warm, left leg appears well perfused, slightly swollen compared to right leg, + edema in legs bilaterally but improving from yesterday skin with fungal appearing rash in gluteal clefts - Acute blood loss anemia in post operative setting: Hb stable at >8, BP stable, will continue to monitor - Constipation: bowel regimen with Miralax BID encourage patient to get OOB Relistor used today, successful, had a BM and feels much better - Volume overload: due to transfusion, IV fluids at time of admission, excellent response to Lasix at -3000mL will give one more dose today with potassium supplementation - Rash: appears to be fungal, likely from dampness and not getting up and antibiotic use will recommend Nystatin powder for two weeks for full details see resident note Subjective Patient laying in bed this morning in no acute distress. Patient endorsed pain overnight and yesterday worst in his right groin incision. Pain is been well controlled thus far on p.o. [place] 10, however this morning patient reports his pain is an 8 out of 10. Will discuss strategies on rounds for better pain control. Patient is still profoundly constipated, has not had a bowel movement in 2 weeks per the patient. He is willing to consider enema versus other medical therapy. Overall he is in better spirits, and we discussed how he should continue to improve medically. All questions answered, acute concerns related to constipation and pain. Physical Exam Physical Exam: General: Middle-age male laying in bed no acute distress HEENT: Normocephalic atraumatic Neck: Normal vision inspection Cardiac: Regular rate and rhythm, I did not appreciate significant murmurs rubs or gallops, neg pedal edema bilaterally, negative calf tenderness that is not related to surgery, negative JVD Respiratory: Clear to auscultation bilaterally with symmetrical chest rise without significant wheezes rales or rhonchi GI: Bowel sounds present, nontender to palpation, not distended MSK: Moves extremities Skin: surgical sites clean dry and intact lower extremity otherwise warm, well perfused. Endorsing increased pain in the right groin surgical site. Neuro: Alert and oriented x4 Psych: Depressed, calm, cooperativ Results & Data Vital Signs (Past 12 Hours) Vital Signs Temp Pulse Resp BP BP Pulse Ox 07/27/19 03:07 37.5 C 84 18 124/71 93 07/26/19 23:47 36.7 C 82 17 111/70 94 Laboratory Results 07/27/19 07/26/19 07/26/19 Range/Units 07:38 20:29 16:19 POC Glucose 116 H 160 H 125 H (70-99) 07/26/19 Range/Units 11:28 POC Glucose 119 H (70-99) Medications Administered Current Inpatient Medications Acetaminophen (Tylenol) 650 mg PO Q4H PRN PRN Reason: Pain or Fever Stop: 08/11/19 15:32 Hydrocodone Bitart/Acetaminophen ([place] 10) 1 tab PO QID PRN PRN Reason: Pain Stop: 08/09/19 17:51 Last Admin: 07/27/19 04:48 Dose: 1 tab Documented by: Albuterol (Ventolin Hfa) 2 puffs INH QID PRN PRN Reason: Shortness Of Breath Stop: 08/11/19 15:38 Albuterol (Combivent Respimat) 2 puffs INH QID RAFA Stop: 08/11/19 20:59 Last Admin: 07/26/19 20:54 Dose: 2 puffs Documented by: Aspirin (Ecotrin) 325 mg PO QAM [facility] Stop: 08/12/19 08:59 Last Admin: 07/26/19 08:46 Dose: 325 mg Documented by: Dextrose (Dextrose 50%) 25 - 50 ml IV UD PRN; Protocol PRN Reason: Hypoglycemia Protocol Stop: 08/17/19 10:44 Docusate Sodium (Colace) 100 mg PO BID [facility] Stop: 08/17/19 11:14 Last Admin: 07/26/19 21:03 Dose: 100 mg Documented by: Empagliflozin (Jardiance) 1 ea PO DAILY RAFA Stop: 08/23/19 08:59 Last Admin: 07/26/19 08:45 Dose: 1 ea Documented by: Gabapentin (Neurontin) 800 mg PO TID RAFA Stop: 08/14/19 20:59 Last Admin: 07/26/19 20:54 Dose: 800 mg Documented by: Glucagon (Glucagen) 1 mg IM UD PRN; Protocol PRN Reason: Hypoglycemia Protocol Stop: 08/17/19 10:44 Glucose (Glucose 40%) 15 - 30 gm PO UD PRN; Protocol PRN Reason: Hypoglycemia Protocol Stop: 08/17/19 10:44 Glucose (Dex4 Glucose) 4 - 8 tabs PO UD PRN; Protocol PRN Reason: Hypoglycemia Protocol Stop: 08/17/19 10:44 Vancomycin HCl 2,000 mg/ (Sodium Chloride) 540 mls @ 200 mls/hr IV Q10H RAFA; Protocol Stop: 08/31/19 18:29 Last Infusion: 07/27/19 02:31 Dose: Infused Documented by: Sodium Chloride (Nss) 250 mls @ 15 mls/hr IV .[id number] PRN PRN Reason: For Transfusion Stop: 08/22/19 09:56 Insulin Aspart (Novolog Flexpen) 0 units SC ACHS [facility] Stop: 08/22/19 11:29 Last Admin: 07/26/19 20:56 Dose: 3 units Documented by: Ioversol (Optiray 320 100ml) 100 ml IV ONCE PRN PRN Reason: Interaction Checking Stop: 07/29/19 02:35 Last Admin: 07/25/19 02:37 Dose: 93 ml Documented by: Lisinopril (Zestril) 40 mg PO QAM [facility] Stop: 08/12/19 08:59 Last Admin: 07/26/19 08:47 Dose: 40 mg Documented by: Metformin HCl (Glucophage) 1,000 mg PO BIDM [facility] Stop: 08/21/19 16:59 Last Admin: 07/25/19 10:24 Dose: Not Given Documented by: Miscellaneous (Carbohydrates For Hypoglycemia) 15 - 30 gm PO UD PRN PRN Reason: Hypoglycemia Treatment Stop: 08/17/19 10:44 Miscellaneous Information (Consult) 1 ea N/A UD PRN PRN Reason: Consult Stop: 08/13/19 17:33 Last Admin: 07/21/19 13:30 Dose: 1 ea Documented by: Miscellaneous Information (Consult Glycemic Management Pharmacy) 1 ea N/A UD PRN PRN Reason: Consult Stop: 08/20/19 15:59 Morphine Sulfate (Morphine Sulfate) 2 mg IV Q2HWA PRN PRN Reason: Pain Stop: 07/28/19 22:54 Last Admin: 07/25/19 10:40 Dose: 2 mg Documented by: Morphine Sulfate (Morphine Sulfate) 4 mg IV Q2HWA PRN PRN Reason: Pain Stop: 07/28/19 23:01 Last Admin: 07/26/19 05:11 Dose: 4 mg Documented by: Nitroglycerin (Nitrostat) 0.4 mg SL UD PRN PRN Reason: Chest Pain Stop: 08/11/19 15:32 Polyethylene Glycol (Miralax Powder Packet) 17 gm PO BID PRN PRN Reason: Constipation Stop: 08/17/19 11:02 Warfarin Sodium (Coumadin) 5 mg PO DAILY@1600 RAFA Stop: 08/23/19 15:59 Last Admin: 07/24/19 17:12 Dose: 5 mg Documented by: Zolpidem Tartrate (Ambien) 5 mg PO HS PRN PRN Reason: Sleep Stop: 08/20/19 00:00 Last Admin: 07/21/19 00:44 Dose: 5 mg Documented by: PG Care Time/CCT Total # of Minutes Spent Total Time Spent with Patient: Total time spent is greater than 50% in coordination of care (as documented) at patient's floor/unit and/or counseling patient: Resident Activity Tracking Resident Involvement: Resident Care Provided Care Provided: Adult Hospital Medicine
[2019-07-27] MEDS: INSULIN ASPART 100 UNITS/ML 3 ML PEN SC SCH ×4 (08:42→20:34)
[2019-07-27] MEDS: GABAPENTIN 800 MG TAB PO SCH ×3 (08:43→20:36)
[2019-07-27] MEDS: lisinopriL 40 MG TAB PO SCH (08:43)
[2019-07-27] MEDS: ASPIRIN 325 MG ECTAB PO SCH (08:44)
[2019-07-27] MEDS: IPRATROPIUM BROMIDE/ALBUTEROL respimat INH INH SCH ×4 (08:44→20:35)
[2019-07-27] MEDS: MoRPHine SULFATE 2 MG/ML CARP IV PRN (08:45)
[2019-07-27] MEDS: EMPAGLIFLOZIN 10 MG PO SCH (08:46)
[2019-07-27] MEDS: DOCUSATE SODIUM 100 MG CAP PO SCH ×2 (08:50→20:39)
[2019-07-27] MEDS ORDERED: VANCOMYCIN TROUGH ONE (09:30)
[2019-07-27 09:41] LABS: Hematocrit (blood only) 24.5 % (42-52); Mean Corpuscular Hemoglobin 31.3 pg (25-34); Mean Corpuscular Hgb Conc 32.7 g/dL (32-36); Mean Corpuscular Volume 95.7 fL (80-100); Mean Platelet Volume 8.6 fL (7.4-10.4); Platelet Count 263 K/uL (130-400); RDW Coefficient of Variation 16.9 % (11.5-14.5); RDW Standard Deviation 57.5 fL (36.4-46.3); Red Blood Count 2.56 M/uL (4.7-6.1); White Blood Count 8.38 K/uL (4.8-10.8)
[2019-07-27] MEDS: METFORMIN HCL 500 MG TAB PO SCH ×2 (09:53→17:20)
[2019-07-27 10:03] LABS: BUN Creatinine Ratio 18.6 (10-20); Calcium 8.2 mg/dl (8.5-10.1); Creatinine Clr Calc Pharmacy 189.9 ml/min; Est GFR (African American) 137.3; Est GFR (Non-African American) 118.5; Potassium 3.3 mmol/L (3.5-5.1)
[2019-07-27 10:08] LABS: INR 2.8 (0.9-1.1); Prothrombin Time 26.5 Seconds (9.0-12.0)
--- NOTE | 2019-07-27 10:25 | Pharmacy Report ---
Pharmacy Glycemic Short Note 2 - Date of Service July 27, 2019 - Glycemic Short BSG Results (Last 24 hours): 07/26/19 07/26/19 07/26/19 11:28 16:19 20:29 Glucose POC Glucose 119 H 125 H 160 H 07/27/19 07/27/19 07:38 09:21 Glucose 126 H POC Glucose 116 H OUTPATIENT ANTIDIABETIC REGIMEN: * Toujeo 15 units qPM * Metformin 1000 mg BID * Jardiance 10 mg qam * Trulicity weekly ASSESSMENT: * BSGs 103-160 over the last 24 hours and received 22 units of insulin * 12 units of basal * 10 units fo bolus * Fasting this AM 116/ In goal range today with current basal insulin dosing. However adding back metformin today so will reduce insulin dosing slightly. * Prandial BSGs within goal range, will continue current correction factor/carb ratio PLAN FOR INPATIENT GLYCEMIC CONTROL: * Jardiance 10 mg * Metformin 1,000mg PO BIDM * Basal insulin (decrease dose) * Lantus * 8 units BSG <120 * 10 units BSG 120 and greater * Bolus insulin (no change) * NovoLog per scale ACHS or Q6hrs while NPO * Goal Range: Low 110 mg/dL - High 140 mg/dL * Correction Factor: 25 mg/dL/unit * Nutritional / Prandial insulin per carb ratio of 1 unit per 8 grams CHO consumed PLAN FOR DISCHARGE: A1c = 8.3% on 06/15/19 Goal A1c = 7% based on age and comorbidities * Patient currently on triple therapy + basal insulin, if adequate control not achieved with this regimen, could potentially initiate prandial insulin with meals Support Patient Self-Management Healthy Lifestyle (diet, exercise, and smoking cessation) Disease self-management (SMBG) Prevention of complications (BP, Lipid goals, Immunizations)
[2019-07-27] MEDS: VANCOMYCIN HCL 2,000 MG in SODIUM CHLORIDE 0.9% 500 ML IV SCH ×2 (10:33→20:41)
--- NOTE | 2019-07-27 11:35 | Pharmacy Report ---
Pharmacy Abx Dose Short Note - Date of Service July 27, 2019 - Assessment & Plan Assessment 59 year old M receiving Vancomycin for treatment of MRSA SST Day # 14 of antimicrobial therapy. Plan Vancomycin * Trough level of 17 mcg/mL is therapeutic * Continue dose of 2,00 mg IV every 10 hours * Goal trough level for SST : 10 to 20 mcg/mL * Will re-order a trough level if renal function changes. Pharmacy will continue to follow and will adjust dose/frequency as necessary. Thank you.
[2019-07-27] MEDS ORDERED: FUROSEMIDE 20 MG in SYRINGE 0 ML IV ONE (11:45)
[2019-07-27] MEDS: POTASSIUM CHLORIDE 20 MEQ TABCR PO SCH ×2 (12:42→13:11)
[2019-07-27] MEDS: METHYLNALTREXONE BROMIDE 12 MG/0.6 ML VIAL SQ SCH (12:44)
--- NOTE | 2019-07-27 16:13 | Surgery Progress Note ---
Date of Service July 27, 2019 Assessment & Plan (1) Infected prosthetic vascular graft: Pt overall improving. He will have his wound VAC changed tomorrow. We will have discharge planning to start working on rehab placement. He may require a port for IV antibiotics if long-term is needed after discharge. (2) Acute blood loss as cause of postoperative anemia: Hemoglobin is stable at this time. Subjective 59 yo m with severe PAD, and revision of his axillobifemoral bypass with removal of the left limb. He is doing well. He is in good spirits today. He does claim that he had a bowel movement. He was standing on his leg and trying to walk earlier today. Physical Exam Constitutional: WD/WN, vitals as above no acute distress Cardiovascular: Rate/Rhythm: regular rate and regular rhythm Vessels: po sterior tibial pulses present (left present to doppler and also palpable.) Skin: + wound (Wounds are dry and clean.) and + incision (Left groin is a wound VAC in place which is working well.) Results & Data Vital Signs (Past 12 Hours) Vital Signs Temp Pulse Pulse Resp BP BP Pulse Ox 07/27/19 15:38 36.8 C 89 20 110/70 93 07/27/19 11:10 36.7 C 98 H 16 108/65 95 07/27/19 08:00 84 07/27/19 07:35 36.7 C 86 16 111/69 92
[2019-07-27] MEDS ORDERED: INSULIN GLARGINE SOLOSTAR 100 UNITS/ML 3 ML PEN SC ONE (21:00)
[2019-07-28] MEDS: HYDROCODONE/ACETAMINOPHEN 10/325 TAB PO PRN ×4 (02:43→21:57)
[2019-07-28] MEDS: VANCOMYCIN HCL 2,000 MG in SODIUM CHLORIDE 0.9% 500 ML IV SCH ×2 (05:53→16:55)
--- NOTE | 2019-07-28 07:39 | Family Medicine Progress Note ---
Date of Service July 28, 2019 Assessment & Plan (1) Infected prosthetic vascular graft: 59yo M PMH HTN, DM with neuropathy, COPD, PAD with bilat LE ischemia, h/o fem/fem bypass, h/o ax/fem bypass, admitted 07/14 for bleeding incision with sepsis, +Blood cx (Gram + cocci and staph), developed L groin incision infection with MRSA. Medicine consulted for chronic medical issues and glucose management. #Streptococcal sepsis, resolved: -S/P femoral bypass revision and insertion of wound VAC to left groin (07/21/19) secondary to recent MRSA sepsis and infection of graft -Cultures now growing out Anaerococcus prevotii, appreciate infectious disease recommendations -Infectious disease consulted, appreciate recs -Continue vancomycin, will need at least 2 weeks of IV antibiotics -We will continue to follow -Need to clarify with her IV antibiotics will continue for 2 weeks from date of consultation versus 2 weeks in total. -Has been on vancomycin for 11 days since admission -Vascular managing postoperative care -Postop day 7 -Status post wound VAC change -Patient is very deconditioned, encourage PT #Anticoagulation Anticoagulation per vascular surgery. Patient was on a heparin GTT, started on warfarin concurrently until goal INR is achieved.Was previously on 10 mg p.o. daily, INR this morning was 3.2, warfarin decreased to 5 mg daily will reassess INR tomorrow ordered. -INR: 3.2 -> 4.0 ->3.9->2.8->1.5 -sub therapeutic, resumed warfarin -Anticoagulation per vascular surgery #Constipation Patient reports profound constipation despite being on scheduled MiraLAX twice daily and Colace. Likely component of his constipation secondary to opiates for pain control. We had a discussion about trying to limit his opiate consumption as this will likely worsen his constipation. Patient reports that it is been 2 weeks since he had an adequate bowel movement he is amenable to either further medical therapy or enema. Patient had successful bowel movement status post initiation of Relistor 07/27. -Scheduled MiraLAX twice daily -Scheduled Colace twice daily -Continue daily Relistor until no longer requiring opioid for analgesia #Post-op anemia and hematoma 2U PRBCs administered 07/23/19 due to 2 point drop in Hb (10.6-->8.6),Dr. Alanis made aware of bleeding from incision, directed to apply pressure and monitor. 07/24 Night resident contacted to evaluate suspected hematoma with active bleeding, CT scan obtained demonstrating possible bleeding. Physical exam not consistent with significant bleed. Hemoglobin on 07/25 dropped to 8.9 from 9.7 this likely represents a combination of dilutional secondary to being 10 L positive. -Hemoglobin stable, no signs or symptoms of anemia -Continue to trend CBC -Wound vac change tomorrow #T2DM -On multiple home agents. A1C in June was 8.3. -Is tolerating T2DM diet. -Glycemic consult placed; pharmacy managing further recommendations. -Continue to hold home agents - Metformin, Toujeo, Trulicity and Jardiance -Continue home Neurontin for neuropathic pain #COPD (chronic obstructive pulmonary disease) -COPD without acute exacerbation. Adequate oxygenation on room air. No wheeze. -Continue Combivent -Continue Albuterol PRN -Continue to monitor #Hypertension: -Blood pressure well controlled -Continue lisinopril 40 mg #JAMES on CPAP: -States he is compliant with CPAP at home. Does not wish to wear it here -Monitor saturations #Iatrogenic hypervolemia Given significant fluids in the postoperative period, patient was total of 10 L positive. Gave one-time dose of 20 mg of Lasix on 07/25 patient diuresed 2 L. 07/26 another 0.5L patient still net +7.5 L. 07/27 diuresed 4L still +5.5 L -Continue diuresis with 20 mg of Lasix -Monitor I's and O's #Hypokalemia Secondary to diuretics. -K:3.5->3.7->3.3->3.8 -Repleted 20 mEq every 2 hours x2 #Depression 2/2 to medical condition Patient is depressed secondary to his prolonged hospitalization, multiple medical complications. Patient endorsed feeling like he wanted to end it all yesterday. Psychiatry was consulted, they do not feel that the patient is actively suicidal, and this was in fact use of hyperbole. Patient did not endorse to primary team during physical exam this morning that he is more depressed than he ever has been, however he feels that once he begins progressing towards discharge he will feel significant be better. We will continue to monitor, patient not requesting medical therapy currently. -mood improved s/p bm #Rash Likely fungal secondary to dampness not ambulating and laying down for days on it. -Nystatin powder every 2 weeks FENa: Type II diabetic diet Code Status: DNR/DNI DVT PPX: INR therapeutic at 1.5 anticoagulation per vascular team PT/OT: Consulted Dispo: PCU Houston Mark MD PGY 2, FCM This chart was completed utilizing [employer]ation voice recognition software. Grammatical errors, random word insertions, pronoun errors, and in complete sentences are an occasional consequence of the system. Any questions or concerns about the content, text, or information contained within the body of this dictation should be addressed directly to the physician for clarification. Supervising Physician Co-Signing Physician Notes Patient seen and examined with Dr. Mark. I agree with their exam findings, review of systems, assessment and plan. I have personally reviewed the lab work and imaging from today. patient feels great, actually smiling his breathing is stable, no chest pain, no abdominal pain eating well, had a BM last night voiding well less edema in legs Exam: overweight male, NAD, lungs CTA bilaterally, no distress, regular S1 S2 no murmur abd soft, NT, ND, extremities are warm, left leg appears well perfused, trace edema in legs, much improved overall skin with fungal appearing rash in gluteal clefts, slightly better - Acute blood loss anemia in post operative setting: Hb stable at >8, BP stable, will continue to monitor tomorrow - Constipation: resolved with Miralax BID and relistor - Volume overload: due to transfusion, IV fluids at time of admission, excellent response to Lasix at -4000mL no further Lasix at this time, he is ambulating which will help mobilize fluids - Rash: appears to be fungal, likely from dampness and not getting up and antibiotic use will recommend Nystatin powder for two weeks for full details see resident note Subjective Patient laying down in bed in no acute distress. He is status post wound VAC change, reports significant pain with the change. Otherwise he continues to improve, significant improvement after he had a bowel movement yesterday. Patient reports no acute events overnight, he is tolerating his diet, voiding, stooling, sleeping, and ambulating. No acute concerns at present all questions answered. Physical Exam Physical Exam: General: Middle-age male laying in bed no acute distress HEENT: Normocephalic atraumatic Neck: Normal vision inspection Cardiac: Regular rate and rhythm, I did not appreciate significant murmurs rubs or gallops, neg pedal edema bilaterally, negative calf tenderness that is not related to surgery, negative JVD Respiratory: Clear to auscultation bilaterally with symmetrical chest rise without significant wheezes rales or rhonchi GI: Bowel sounds present, nontender to palpation, not distended MSK: Moves extremities Skin: surgical sites clean dry and intact lower extremity otherwise warm, well perfused. Endorsing increased pain at the site of wound VAC change. Neuro: Alert and oriented x4 Psych: Depressed, calm, cooperative Results & Data Vital Signs (Past 12 Hours) Vital Signs Temp Pulse Pulse Resp BP BP Pulse Ox 07/28/19 07:13 36.6 C 87 18 114/68 93 07/28/19 02:33 36.8 C 86 19 115/69 94 07/28/19 01:47 81 07/28/19 00:15 36.9 C 87 17 109/69 93 Laboratory Results 07/28/19 07/28/19 07/28/19 Range/Units 08:13 08:13 07:14 PT 15.1 H (9.0-12.0) Seconds INR 1.5 H (0.9-1.1) Sodium 139 (136-145) mmol/L Potassium 3.8 D (3.5-5.1) mmol/L Chloride 106 (98-107) mmol/L Carbon Dioxide 24 (21-32) mmol/L Anion Gap 9.0 (3-11) BUN 10 (7-18) mg/dl Creatinine 0.51 L (0.6-1.4) mg/dl Est Cr Clr Drug Dosing 188.8 ml/min Est GFR ( Amer) 137.3 Est GFR (Non-Af Amer) 118.5 BUN/Creatinine Ratio 18.9 (10-20) Glucose 138 H (70-99) mg/dl POC Glucose 102 H (70-99) Calcium 8.3 L (8.5-10.1) mg/dl 07/27/19 07/27/19 07/27/19 Range/Units 20:16 16:08 11:14 PT (9.0-12.0) Seconds INR (0.9-1.1) Sodium (136-145) mmol/L Potassium (3.5-5.1) mmol/L Chloride (98-107) mmol/L Carbon Dioxide (21-32) mmol/L Anion Gap (3-11) BUN (7-18) mg/dl Creatinine (0.6-1.4) mg/dl Est Cr Clr Drug Dosing ml/min Est GFR ( Amer) Est GFR (Non-Af Amer) BUN/Creatinine Ratio (10-20) Glucose (70-99) mg/dl POC Glucose 117 H 110 H 169 H (70-99) Calcium (8.5-10.1) mg/dl Medications Administered Current Inpatient Medications Acetaminophen (Tylenol) 650 mg PO Q4H PRN PRN Reason: Pain or Fever Stop: 08/11/19 15:32 Hydrocodone Bitart/Acetaminophen ([place] ) 1 tab PO QID PRN PRN Reason: Pain Stop: 08/09/19 17:51 Last Admin: 07/28/19 07:50 Dose: 1 tab Documented by: Albuterol (Ventolin Hfa) 2 puffs INH QID PRN PRN Reason: Shortness Of Breath Stop: 08/11/19 15:38 Albuterol (Combivent Respimat) 2 puffs INH QID RAFA Stop: 08/11/19 20:59 Last Admin: 07/28/19 07:41 Dose: 2 puffs Documented by: Aspirin (Ecotrin) 325 mg PO QAM [facility] Stop: 08/12/19 08:59 Last Admin: 07/28/19 07:42 Dose: 325 mg Documented by: Dextrose (Dextrose 50%) 25 - 50 ml IV UD PRN; Protocol PRN Reason: Hypoglycemia Protocol Stop: 08/17/19 10:44 Docusate Sodium (Colace) 100 mg PO BID [facility] Stop: 08/17/19 11:14 Last Admin: 07/28/19 09:43 Dose: Not Given Documented by: Empagliflozin (Jardiance) 1 ea PO DAILY RAFA Stop: 08/23/19 08:59 Last Admin: 07/28/19 07:43 Dose: 1 ea Documented by: Gabapentin (Neurontin) 800 mg PO TID [facility] Stop: 08/14/19 20:59 Last Admin: 07/28/19 07:42 Dose: 800 mg Documented by: Glucagon (Glucagen) 1 mg IM UD PRN; Protocol PRN Reason: Hypoglycemia Protocol Stop: 08/17/19 10:44 Glucose (Glucose 40%) 15 - 30 gm PO UD PRN; Protocol PRN Reason: Hypoglycemia Protocol Stop: 08/17/19 10:44 Glucose (Dex4 Glucose) 4 - 8 tabs PO UD PRN; Protocol PRN Reason: Hypoglycemia Protocol Stop: 08/17/19 10:44 Vancomycin HCl 2,000 mg/ (Sodium Chloride) 540 mls @ 200 mls/hr IV Q10H RAFA; Protocol Stop: 08/31/19 18:29 Last Infusion: 07/28/19 08:35 Dose: Infused Documented by: Sodium Chloride (Nss) 250 mls @ 15 mls/hr IV .[id number] PRN PRN Reason: For Transfusion Stop: 08/22/19 09:56 Insulin Aspart (Novolog Flexpen) 0 units SC ACHS [facility] Stop: 08/22/19 11:29 Last Admin: 07/28/19 07:51 Dose: 8 units Documented by: Ioversol (Optiray 320 100ml) 100 ml IV ONCE PRN PRN Reason: Interaction Checking Stop: 07/29/19 02:35 Last Admin: 07/25/19 02:37 Dose: 93 ml Documented by: Lisinopril (Zestril) 40 mg PO QAM [facility] Stop: 08/12/19 08:59 Last Admin: 07/28/19 07:42 Dose: 40 mg Documented by: Metformin HCl (Glucophage) 1,000 mg PO BIDM [facility] Stop: 08/21/19 16:59 Last Admin: 07/28/19 07:42 Dose: 1,000 mg Documented by: Methylnaltrexone [place] (Relistor) 12 mg SQ Q2D [facility] Stop: 08/26/19 11:59 Last Admin: 07/27/19 12:44 Dose: 12 mg Documented by: Miscellaneous (Carbohydrates For Hypoglycemia) 15 - 30 gm PO UD PRN PRN Reason: Hypoglycemia Treatment Stop: 08/17/19 10:44 Miscellaneous Information (Consult) 1 ea N/A UD PRN PRN Reason: Consult Stop: 08/13/19 17:33 Last Admin: 07/21/19 13:30 Dose: 1 ea Documented by: Miscellaneous Information (Consult Glycemic Management Pharmacy) 1 ea N/A UD PRN PRN Reason: Consult Stop: 08/20/19 15:59 Morphine Sulfate (Morphine Sulfate) 2 mg IV Q2HWA PRN PRN Reason: Pain Stop: 07/28/19 22:54 Last Admin: 07/28/19 09:07 Dose: 2 mg Documented by: Morphine Sulfate (Morphine Sulfate) 4 mg IV Q2HWA PRN PRN Reason: Pain Stop: 07/28/19 23:01 Last Admin: 07/28/19 08:29 Dose: 4 mg Documented by: Nitroglycerin (Nitrostat) 0.4 mg SL UD PRN PRN Reason: Chest Pain Stop: 08/11/19 15:32 Polyethylene Glycol (Miralax Powder Packet) 17 gm PO BID PRN PRN Reason: Constipation Stop: 08/17/19 11:02 Warfarin Sodium (Coumadin) 5 mg PO DAILY@1600 RAFA Stop: 08/23/19 15:59 Last Admin: 07/24/19 17:12 Dose: 5 mg Documented by: Zolpidem Tartrate (Ambien) 5 mg PO HS PRN PRN Reason: Sleep Stop: 08/20/19 00:00 Last Admin: 07/21/19 00:44 Dose: 5 mg Documented by: PG Care Time/CCT Total # of Minutes Spent Total Time Spent with Patient: Total time spent is greater than 50% in coordination of care (as documented) at patient's floor/unit and/or counseling patient: Resident Activity Tracking Resident Involvement: Resident Care Provided Care Provided: Adult Hospital Medicine
[2019-07-28] MEDS: IPRATROPIUM BROMIDE/ALBUTEROL respimat INH INH SCH ×4 (07:41→21:51)
[2019-07-28] MEDS: lisinopriL 40 MG TAB PO SCH (07:42)
[2019-07-28] MEDS: ASPIRIN 325 MG ECTAB PO SCH (07:42)
[2019-07-28] MEDS: METFORMIN HCL 500 MG TAB PO SCH ×2 (07:42→16:58)
[2019-07-28] MEDS: GABAPENTIN 800 MG TAB PO SCH ×3 (07:42→21:52)
[2019-07-28] MEDS: EMPAGLIFLOZIN 10 MG PO SCH (07:43)
[2019-07-28] MEDS: INSULIN ASPART 100 UNITS/ML 3 ML PEN SC SCH ×4 (07:51→21:53)
[2019-07-28] MEDS: MoRPHine SULFATE 4 MG/ML 1 ML CARP\\VIAL IV PRN ×3 (08:29→18:36)
[2019-07-28 08:33] LABS: INR 1.5 (0.9-1.1); Prothrombin Time 15.1 Seconds (9.0-12.0)
[2019-07-28 09:07] LABS: BUN Creatinine Ratio 18.9 (10-20); Calcium 8.3 mg/dl (8.5-10.1); Creatinine Clr Calc Pharmacy 188.8 ml/min; Est GFR (African American) 137.3; Est GFR (Non-African American) 118.5; Potassium 3.8 mmol/L (3.5-5.1)
[2019-07-28] MEDS: MoRPHine SULFATE 2 MG/ML CARP IV PRN (09:07)
[2019-07-28] MEDS: DOCUSATE SODIUM 100 MG CAP PO SCH ×2 (09:43→21:57)
--- NOTE | 2019-07-28 10:11 | Surgery Progress Note ---
Date of Service July 28, 2019 Assessment & Plan (1) Infected prosthetic vascular graft: Pt overall improving. Vac changed today. Pt required morphine for vac change d/t pain. We will have discharge planning to start working on rehab placement. He may require a port for IV antibiotics if long-term is needed after discharge. (2) Acute blood loss as cause of postoperative anemia: Hemoglobin is stable at this time. Subjective 59 yo m post op from removal of L groin bypass and revision of a bifem bypass using bovine graft, seen in f/u today. Pt states still having significant pain in L lower abd at incisions. Denies any other new complaints. Review of Systems Review of Systems: All systems reviewed & are unremarkable except as noted in HPI & below Physical Exam Constitutional: WD/WN, vitals as above + ill appearing (chronically); no acute distress Respiratory: normal respiratory effort, lungs clear to auscultation Cardiovascular: Rate/Rhythm: regular rate and regular rhythm Vessels: + abnormal peripheral pulses (dopplerable) Gastrointestinal (Abdomen): Inspection/Auscultation: abdomen normal to inspection and normal bowel sounds Percussion/Palpation: abdomen nontender Musculoskeletal: Extremities: strength 5/5 throughout Skin: + wound (L groin wound good granulation, moderate draiange.most other wounds dry, so) Psychiatric: Orientation: alert and oriented x 3 Affect: + anxious affect, + irritable affect and + angry affect Results & Data Vital Signs (Past 12 Hours) Vital Signs Temp Pulse Pulse Resp BP BP Pulse Ox 07/28/19 08:00 79 07/28/19 07:13 36.6 C 87 18 114/68 93 07/28/19 02:33 36.8 C 86 19 115/69 94 07/28/19 01:47 81 07/28/19 00:15 36.9 C 87 17 109/69 93
[2019-07-28] MEDS: POTASSIUM CHLORIDE 20 MEQ TABCR PO SCH ×2 (12:05→14:29)
[2019-07-28] MEDS: WARFARIN SOD 5 MG TAB PO SCH (16:56)
[2019-07-28] MEDS ORDERED: INSULIN GLARGINE SOLOSTAR 100 UNITS/ML 3 ML PEN SC ONE (21:00)
[2019-07-29] MEDS: VANCOMYCIN HCL 2,000 MG in SODIUM CHLORIDE 0.9% 500 ML IV SCH ×3 (01:26→22:46)
[2019-07-29 07:28] LABS: Basophils # (auto) 0.04 K/uL (0-0.2); Basophils % (auto) 0.5 %; Eosinophils # (auto) 0.17 K/uL (0-0.5); Hematocrit (blood only) 26.6 % (42-52); Hemoglobin 8.4 g/dL (14.0-18.0); Immature Granulocytes # (auto) 0.03 K/uL (0.00-0.02); Immature Granulocytes % (auto) 0.4 %; Lymphocytes # (auto) 1.39 K/uL (1.2-3.4); Lymphocytes % (auto) 16.3 %; Mean Corpuscular Hgb Conc 31.6 g/dL (32-36); Mean Corpuscular Volume 98.2 fL (80-100); Mean Platelet Volume 8.7 fL (7.4-10.4); Monocytes # (auto) 0.77 K/uL (0.11-0.59); Neutrophils # (auto) 6.14 K/uL (1.4-6.5); Neutrophils % (auto) 71.8 %; Platelet Count 325 K/uL (130-400); RDW Coefficient of Variation 17.5 % (11.5-14.5); RDW Standard Deviation 60.9 fL (36.4-46.3); Red Blood Count 2.71 M/uL (4.7-6.1); White Blood Count 8.54 K/uL (4.8-10.8)
[2019-07-29 07:38] LABS: INR 1.5 (0.9-1.1); Prothrombin Time 15.2 Seconds (9.0-12.0)
[2019-07-29] MEDS: HYDROCODONE/ACETAMINOPHEN 10/325 TAB PO PRN ×3 (07:51→20:55)
[2019-07-29] MEDS: INSULIN ASPART 100 UNITS/ML 3 ML PEN SC SCH ×4 (07:52→20:59)
[2019-07-29] MEDS: IPRATROPIUM BROMIDE/ALBUTEROL respimat INH INH SCH ×4 (07:54→20:56)
[2019-07-29] MEDS: METFORMIN HCL 500 MG TAB PO SCH ×2 (07:55→16:26)
[2019-07-29] MEDS: lisinopriL 40 MG TAB PO SCH (07:55)
[2019-07-29] MEDS: ASPIRIN 325 MG ECTAB PO SCH (07:55)
[2019-07-29] MEDS: EMPAGLIFLOZIN 10 MG PO SCH (07:55)
[2019-07-29] MEDS: GABAPENTIN 800 MG TAB PO SCH ×3 (07:56→20:59)
[2019-07-29 08:07] LABS: BUN Creatinine Ratio 22.9 (10-20); Calcium 8.4 mg/dl (8.5-10.1); Creatinine Clr Calc Pharmacy 163.4 ml/min; Est GFR (African American) 129.3; Est GFR (Non-African American) 111.6; Potassium 3.7 mmol/L (3.5-5.1)
--- NOTE | 2019-07-29 08:49 | Surgery Progress Note ---
Date of Service July 29, 2019 Assessment & Plan (1) Infected prosthetic vascular graft: Pt overall improving. This point will need infectious disease input as far as the length of therapy for his IV antibiotics.Most likely he will be ready to be discharged to a rehab or nursing facility later this week. (2) Acute blood loss as cause of postoperative anemia: Hemoglobin is stable at this time. Subjective 59 yo m post op from removal of L groin bypass and revision of a bifem bypass using bovine graft. He is in fairly good spirits today. He does claim that he feels like he will have to have a bowel movement today.He denies any foot pain. Physical Exam Cardiovascular: Vessels: posterior tibial pulses present (left present to doppler and also palpable.) Skin: + wound (Wounds are dry and clean.) and + incision (Left groin is a wound VAC in place) Results & Data Vital Signs (Past 12 Hours) Vital Signs Temp Pulse Resp BP BP Pulse Ox 07/29/19 07:09 36.9 C 86 16 103/64 92 07/29/19 03:41 36.7 C 84 21 103/62 90 07/29/19 00:04 36.8 C 95 H 15 91/54 L 93
[2019-07-29] MEDS: HYDROmorphone INJ 1 MG/ML SYRINGE IV PRN (10:30)
--- NOTE | 2019-07-29 11:24 | Family Medicine Progress Note ---
Date of Service July 29, 2019 Assessment & Plan (1) Infected prosthetic vascular graft: 59yo M PMH HTN, DM with neuropathy, COPD, PAD with bilat LE ischemia, h/o fem/fem bypass, h/o ax/fem bypass, admitted 07/14 for bleeding incision with sepsis, +Blood cx (Gram + cocci and staph), developed L groin incision infection with MRSA. Medicine consulted for chronic medical issues and glucose management. #Streptococcal sepsis, resolved: -S/P femoral bypass revision and insertion of wound VAC to left groin (07/21/19) secondary to recent MRSA sepsis and infection of graft -Cultures now growing out Anaerococcus prevotii, appreciate infectious disease recommendations -Infectious disease consulted, appreciate recs -Continue vancomycin, will need at least 2 weeks of IV antibiotics -We will continue to follow -Need to clarify with her IV antibiotics will continue for 2 weeks from date of consultation versus 2 weeks in total. -Has been on vancomycin for 12 days since admission -Vascular managing postoperative care -Postop day 8 -daily wound dressing -prn dilaudid 1 mg for dressing changes -Patient is very deconditioned, encourage PT #Anticoagulation Anticoagulation per vascular surgery. Patient was on a heparin GTT, started on warfarin concurrently until goal INR is achieved.Was previously on 10 mg p.o. daily, INR this morning was 3.2, warfarin decreased to 5 mg daily will reassess INR tomorrow ordered. -INR: 3.2 -> 4.0 ->3.9->2.8->1.5->1.5 -sub therapeutic -10 mg warfarin today, than back to 5 mg daily -Anticoagulation per vascular surgery #Constipation Patient reports profound constipation despite being on scheduled MiraLAX twice daily and Colace. Likely component of his constipation secondary to opiates for pain control. We had a discussion about trying to limit his opiate consumption as this will likely worsen his constipation. Patient reports that it is been 2 weeks since he had an adequate bowel movement he is amenable to either further medical therapy or enema. Patient had successful bowel movement status post initiation of Relistor 07/27. -Scheduled MiraLAX twice daily -Scheduled Colace twice daily -Continue daily Relistor until no longer requiring opioid for analgesia #Post-op anemia and hematoma 2U PRBCs administered 07/23/19 due to 2 point drop in Hb (10.6-->8.6),Dr. Alanis made aware of bleeding from incision, directed to apply pressure and monitor. 07/24 Night resident contacted to evaluate suspected hematoma with active bleeding, CT scan obtained demonstrating possible bleeding. Physical exam not consistent with significant bleed. Hemoglobin on 07/25 dropped to 8.9 from 9.7 this likely represents a combination of dilutional secondary to being 10 L positive. -Hemoglobin stable, no signs or symptoms of anemia -Continue to trend CBC #T2DM -On multiple home agents. A1C in June was 8.3. -Is tolerating T2DM diet. -Glycemic consult placed; pharmacy managing further recommendations. -Continue home Neurontin for neuropathic pain #COPD (chronic obstructive pulmonary disease) -COPD without acute exacerbation. Adequate oxygenation on room air. No wheeze. -Continue Combivent -Continue Albuterol PRN -Continue to monitor #Hypertension: -Blood pressure well controlled -Continue lisinopril 40 mg #JAMES on CPAP: -States he is compliant with CPAP at home. Does not wish to wear it here -Monitor saturations #Iatrogenic hypervolemia Given significant fluids in the postoperative period, patient was total of 10 L positive. Gave one-time dose of 20 mg of Lasix on 07/25 patient diuresed 2 L. 07/26 another 0.5L patient still net +7.5 L. 07/27 diuresed 4L still +5.5 L -Continue diuresis with 20 mg of Lasix -Monitor I's and O's #Hypokalemia Secondary to diuretics. -K:3.5->3.7->3.3->3.8->3.7 -Repleted 20 mEq every 2 hours x2 #Depression 2/2 to medical condition Patient is depressed secondary to his prolonged hospitalization, multiple medical complications. Patient endorsed feeling like he wanted to end it all yesterday. Psychiatry was consulted, they do not feel that the patient is actively suicidal, and this was in fact use of hyperbole. Patient did not endorse to primary team during physical exam this morning that he is more depressed than he ever has been, however he feels that once he begins progressing towards discharge he will feel significant be better. We will continue to monitor, patient not requesting medical therapy currently. -mood improved s/p bm #Rash Likely fungal secondary to dampness not ambulating and laying down for days on it. -Nystatin powder for 2 weeks FENa: Type II diabetic diet Code Status: DNR/DNI DVT PPX: INR therapeutic at 1.5 anticoagulation 10 mg of warfarin today than back to 5 daily PT/OT: Consulted Dispo: PCU Houston Mark MD PGY 2, FCM This chart was completed utilizing [employer] voice recognition software. Grammatical errors, random word insertions, pronoun errors, and in complete sentences are an occasional consequence of the system. Any questions or concerns about the content, text, or information contained within the body of this dictation should be addressed directly to the physician for clarification. Supervising Physician Co-Signing Physician Notes Patient seen and examined with Dr. Mark. I agree with their exam findings, review of systems, assessment and plan. I have personally reviewed the lab work and imaging from today. patient continues to be in good spirits less pain with wound vac changes continues to eat well, no swelling in legs, he is ambulating Exam: overweight male, NAD, lungs CTA bilaterally, no distress, regular S1 S2 no murmur abd soft, NT, ND, extremities are warm, left leg appears well perfused, trace edema in legs, much improved overall skin with fungal appearing rash in gluteal clefts, slightly better - Acute blood loss anemia in post operative setting: Hb stable at >8, BP stable, will continue to monitor tomorrow - Constipation: resolved on 07/27 with Miralax BID and relistor - Volume overload: due to transfusion, IV fluids at time of admission, excellent response to Lasix at -4000mL no further Lasix at this time, he is ambulating which will help mobilize fluids - Rash: appears to be fungal, likely from dampness and not getting up and antibiotic use will recommend Nystatin powder for two weeks - Infected grafts: ID recommended 14 days total IV antibiotics, Vancomycin wound cultures were from 07/21 so last day would be 08/04 blood cultures were no growth on 07/17 for full details see resident note Subjective Patient seen and evaluated this morning lying in bed in no acute distress. Patient reports significant pain with wound changes, requesting PRN medication for that. Otherwise pain is well controlled with Percocet. The patient continues to improve from a clinical standpoint, and reports he is feeling better. Patient has had a bowel movement since initiation of Relistor, is voiding on his own, tolerating his diet, sleeping. Acute concerns are present related to pain control during dressing changes, otherwise all questions answered. Physical Exam Physical Exam: General: Middle-age male laying in bed no acute distress HEENT: Normocephalic atraumatic Neck: Normal vision inspection Cardiac: Regular rate and rhythm, I did not appreciate significant murmurs rubs or gallops, neg pedal edema bilaterally, negative calf tenderness that is not related to surgery, negative JVD Respiratory: Clear to auscultation bilaterally with symmetrical chest rise without significant wheezes rales or rhonchi GI: Bowel sounds present, nontender to palpation, not distended MSK: Moves extremities Skin: surgical sites clean dry and intact lower extremity otherwise warm, well perfused. Neuro: Alert and oriented x4 Psych: Depressed, calm, cooperative Results & Data Vital Signs (Past 12 Hours) Vital Signs Temp Pulse Resp BP BP Pulse Ox 07/29/19 07:09 36.9 C 86 16 103/64 92 07/29/19 03:41 36.7 C 84 21 103/62 90 07/29/19 00:04 36.8 C 95 H 15 91/54 L 93 Laboratory Results 07/29/19 07/29/19 07/29/19 Range/Units 07:11 06:55 06:55 WBC 8.54 (4.8-10.8) K/uL RBC 2.71 L (4.7-6.1) M/uL Hgb 8.4 L (14.0-18.0) g/dL Hct 26.6 L (42-52) % MCV 98.2 (80-100) fL MCH 31.0 (25-34) pg MCHC 31.6 L (32-36) g/dL RDW Std Deviation 60.9 H (36.4-46.3) fL RDW Coeff of Maira 17.5 H (11.5-14.5) % Plt Count 325 (130-400) K/uL MPV 8.7 (7.4-10.4) fL Immature Gran % (Auto) 0.4 % Neut % (Auto) 71.8 % Lymph % (Auto) 16.3 % [place] % (Auto) 9.0 % Eos % (Auto) 2.0 % Baso % (Auto) 0.5 % Immature Gran # (Auto) 0.03 H (0.00-0.02) K/uL Neut # (Auto) 6.14 (1.4-6.5) K/uL Lymph # (Auto) 1.39 (1.2-3.4) K/uL [place] # (Auto) 0.77 H (0.11-0.59) K/uL Eos # (Auto) 0.17 (0-0.5) K/uL Baso # (Auto) 0.04 (0-0.2) K/uL PT 15.2 H (9.0-12.0) Seconds INR 1.5 H (0.9-1.1) Sodium (136-145) mmol/L Potassium (3.5-5.1) mmol/L Chloride (98-107) mmol/L Carbon Dioxide (21-32) mmol/L Anion Gap (3-11) BUN (7-18) mg/dl Creatinine (0.6-1.4) mg/dl Est Cr Clr Drug Dosing ml/min Est GFR ( Amer) Est GFR (Non-Af Amer) BUN/Creatinine Ratio (10-20) Glucose (70-99) mg/dl POC Glucose 152 H (70-99) Calcium (8.5-10.1) mg/dl 07/29/19 07/28/19 07/28/19 Range/Units 06:55 20:12 16:07 WBC (4.8-10.8) K/uL RBC (4.7-6.1) M/uL Hgb (14.0-18.0) g/dL Hct (42-52) % MCV (80-100) fL MCH (25-34) pg MCHC (32-36) g/dL RDW Std Deviation (36.4-46.3) fL RDW Coeff of Maira (11.5-14.5) % Plt Count (130-400) K/uL MPV (7.4-10.4) fL Immature Gran % (Auto) % Neut % (Auto) % Lymph % (Auto) % [place] % (Auto) % Eos % (Auto) % Baso % (Auto) % Immature Gran # (Auto) (0.00-0.02) K/uL Neut # (Auto) (1.4-6.5) K/uL Lymph # (Auto) (1.2-3.4) K/uL [place] # (Auto) (0.11-0.59) K/uL Eos # (Auto) (0-0.5) K/uL Baso # (Auto) (0-0.2) K/uL PT (9.0-12.0) Seconds INR (0.9-1.1) Sodium 142 (136-145) mmol/L Potassium 3.7 (3.5-5.1) mmol/L Chloride 109 H (98-107) mmol/L Carbon Dioxide 26 (21-32) mmol/L Anion Gap 7.0 (3-11) BUN 13 (7-18) mg/dl Creatinine 0.59 L (0.6-1.4) mg/dl Est Cr Clr Drug Dosing 163.4 ml/min Est GFR ( Amer) 129.3 Est GFR (Non-Af Amer) 111.6 BUN/Creatinine Ratio 22.9 H (10-20) Glucose 144 H (70-99) mg/dl POC Glucose 124 H 169 H (70-99) Calcium 8.4 L (8.5-10.1) mg/dl 07/28/19 Range/Units 11:17 WBC (4.8-10.8) K/uL RBC (4.7-6.1) M/uL Hgb (14.0-18.0) g/dL Hct (42-52) % MCV (80-100) fL MCH (25-34) pg MCHC (32-36) g/dL RDW Std Deviation (36.4-46.3) fL RDW Coeff of Maira (11.5-14.5) % Plt Count (130-400) K/uL MPV (7.4-10.4) fL Immature Gran % (Auto) % Neut % (Auto) % Lymph % (Auto) % [place] % (Auto) % Eos % (Auto) % Baso % (Auto) % Immature Gran # (Auto) (0.00-0.02) K/uL Neut # (Auto) (1.4-6.5) K/uL Lymph # (Auto) (1.2-3.4) K/uL [place] # (Auto) (0.11-0.59) K/uL Eos # (Auto) (0-0.5) K/uL Baso # (Auto) (0-0.2) K/uL PT (9.0-12.0) Seconds INR (0.9-1.1) Sodium (136-145) mmol/L Potassium (3.5-5.1) mmol/L Chloride (98-107) mmol/L Carbon Dioxide (21-32) mmol/L Anion Gap (3-11) BUN (7-18) mg/dl Creatinine (0.6-1.4) mg/dl Est Cr Clr Drug Dosing ml/min Est GFR ( Amer) Est GFR (Non-Af Amer) BUN/Creatinine Ratio (10-20) Glucose (70-99) mg/dl POC Glucose 127 H (70-99) Calcium (8.5-10.1) mg/dl Medications Administered Current Inpatient Medications Acetaminophen (Tylenol) 650 mg PO Q4H PRN PRN Reason: Pain or Fever Stop: 08/11/19 15:32 Hydrocodone Bitart/Acetaminophen ([place] [address]) 1 tab PO QID PRN PRN Reason: Pain Stop: 08/09/19 17:51 Last Admin: 07/29/19 07:51 Dose: 1 tab Documented by: Albuterol (Ventolin Hfa) 2 puffs INH QID PRN PRN Reason: Shortness Of Breath Stop: 08/11/19 15:38 Albuterol (Combivent Respimat) 2 puffs INH QID RAFA Stop: 08/11/19 20:59 Last Admin: 07/29/19 07:54 Dose: 2 puffs Documented by: Aspirin (Ecotrin) 325 mg PO QAM RAAF Stop: 08/12/19 08:59 Last Admin: 07/29/19 07:55 Dose: 325 mg Documented by: Dextrose (Dextrose 50%) 25 - 50 ml IV UD PRN; Protocol PRN Reason: Hypoglycemia Protocol Stop: 08/17/19 10:44 Docusate Sodium (Colace) 100 mg PO BID [facility] Stop: 08/17/19 11:14 Last Admin: 07/28/19 21:57 Dose: 100 mg Documented by: Empagliflozin (Jardiance) 1 ea PO DAILY RAFA Stop: 08/23/19 08:59 Last Admin: 07/29/19 07:55 Dose: 1 ea Documented by: Gabapentin (Neurontin) 800 mg PO TID [facility] Stop: 08/14/19 20:59 Last Admin: 07/29/19 07:56 Dose: 800 mg Documented by: Glucagon (Glucagen) 1 mg IM UD PRN; Protocol PRN Reason: Hypoglycemia Protocol Stop: 08/17/19 10:44 Glucose (Glucose 40%) 15 - 30 gm PO UD PRN; Protocol PRN Reason: Hypoglycemia Protocol Stop: 08/17/19 10:44 Glucose (Dex4 Glucose) 4 - 8 tabs PO UD PRN; Protocol PRN Reason: Hypoglycemia Protocol Stop: 08/17/19 10:44 Hydromorphone HCl (Dilaudid) 1 mg IV Q4H PRN PRN Reason: Pain Stop: 08/12/19 08:45 Last Admin: 07/29/19 10:30 Dose: 1 mg Documented by: Vancomycin HCl 2,000 mg/ (Sodium Chloride) 540 mls @ 200 mls/hr IV Q10H [facility]; Protocol Stop: 08/31/19 18:29 Last Infusion: 07/29/19 04:11 Dose: Infused Documented by: Sodium Chloride (Nss) 250 mls @ 15 mls/hr IV .[id number] PRN PRN Reason: For Transfusion Stop: 08/22/19 09:56 Insulin Aspart (Novolog Flexpen) 0 units SC ACHS [facility] Stop: 08/22/19 11:29 Last Admin: 07/29/19 07:52 Dose: 10 units Documented by: Insulin Glargine (Lantus Solostar Pen) 10 units SC HS [facility]; Protocol Stop: 08/28/19 20:59 Lisinopril (Zestril) 40 mg PO QAM [facility] Stop: 08/12/19 08:59 Last Admin: 07/29/19 07:55 Dose: 40 mg Documented by: Metformin HCl (Glucophage) 1,000 mg PO BIDM [facility] Stop: 08/21/19 16:59 Last Admin: 07/29/19 07:55 Dose: 1,000 mg Documented by: Methylnaltrexone Martin (Relistor) 12 mg SQ Q2D [facility] Stop: 08/26/19 11:59 Last Admin: 07/27/19 12:44 Dose: 12 mg Documented by: Miscellaneous (Carbohydrates For Hypoglycemia) 15 - 30 gm PO UD PRN PRN Reason: Hypoglycemia Treatment Stop: 08/17/19 10:44 Miscellaneous Information (Consult) 1 ea N/A UD PRN PRN Reason: Consult Stop: 08/13/19 17:33 Last Admin: 07/21/19 13:30 Dose: 1 ea Documented by: Miscellaneous Information (Consult Glycemic Management Pharmacy) 1 ea N/A UD PRN PRN Reason: Consult Stop: 08/20/19 15:59 Nitroglycerin (Nitrostat) 0.4 mg SL UD PRN PRN Reason: Chest Pain Stop: 08/11/19 15:32 Polyethylene Glycol (Miralax Powder Packet) 17 gm PO BID PRN PRN Reason: Constipation Stop: 08/17/19 11:02 Warfarin Sodium (Coumadin) 5 mg PO DAILY@1600 RAFA Stop: 08/23/19 15:59 Last Admin: 07/28/19 16:56 Dose: 5 mg Documented by: Warfarin Sodium (Coumadin) 10 mg PO DAILY@1600 RAFA Stop: 07/29/19 17:00 Zolpidem Tartrate (Ambien) 5 mg PO HS PRN PRN Reason: Sleep Stop: 08/20/19 00:00 Last Admin: 07/21/19 00:44 Dose: 5 mg Documented by: PG Care Time/CCT Total # of Minutes Spent Total Time Spent with Patient: Total time spent is greater than 50% in coordination of care (as documented) at patient's floor/unit and/or counseling patient: Resident Activity Tracking Resident Involvement: Resident Care Provided Care Provided: Adult Hospital Medicine
[2019-07-29] MEDS: POTASSIUM CHLORIDE 20 MEQ TABCR PO SCH ×2 (13:30→18:21)
[2019-07-29] MEDS: DOCUSATE SODIUM 100 MG CAP PO SCH ×2 (13:30→20:55)
[2019-07-29] MEDS: METHYLNALTREXONE BROMIDE 12 MG/0.6 ML VIAL SQ SCH (13:31)
[2019-07-29] MEDS: NYSTATIN POWDER 15GM BTL EXT SCH ×2 (13:31→20:58)
[2019-07-29] MEDS ORDERED: WARFARIN SOD 10 MG TAB PO SCH (16:00)
[2019-07-29] MEDS: INSULIN GLARGINE SOLOSTAR 100 UNITS/ML 3 ML PEN SC SCH (20:57)
[2019-07-30] MEDS: HYDROmorphone INJ 1 MG/ML SYRINGE IV PRN ×4 (01:58→23:42)
[2019-07-30] MEDS: VANCOMYCIN HCL 2,000 MG in SODIUM CHLORIDE 0.9% 500 ML IV SCH ×2 (08:02→17:02)
[2019-07-30] MEDS: HYDROCODONE/ACETAMINOPHEN 10/325 TAB PO PRN ×3 (08:03→19:30)
[2019-07-30] MEDS: DOCUSATE SODIUM 100 MG CAP PO SCH ×2 (08:03→21:09)
[2019-07-30] MEDS: IPRATROPIUM BROMIDE/ALBUTEROL respimat INH INH SCH ×4 (08:04→21:09)
[2019-07-30] MEDS: METFORMIN HCL 500 MG TAB PO SCH ×2 (08:05→16:10)
[2019-07-30] MEDS: lisinopriL 40 MG TAB PO SCH (08:05)
[2019-07-30] MEDS: EMPAGLIFLOZIN 10 MG PO SCH (08:05)
[2019-07-30] MEDS: ASPIRIN 325 MG ECTAB PO SCH (08:05)
[2019-07-30] MEDS: GABAPENTIN 800 MG TAB PO SCH ×3 (08:05→21:11)
[2019-07-30] MEDS: INSULIN ASPART 100 UNITS/ML 3 ML PEN SC SCH ×4 (08:07→21:13)
[2019-07-30] MEDS: NYSTATIN POWDER 15GM BTL EXT SCH ×2 (08:51→21:10)
--- NOTE | 2019-07-30 09:47 | Surgery Progress Note ---
Date of Service July 30, 2019 Assessment & Plan (1) Infected prosthetic vascular graft: Patient is doing well. Hopefully can d/c this week to rehab on oral antiobiotics and vac. (2) Acute blood loss as cause of postoperative anemia: Hemoglobin is stable at this time. Subjective 59 yo m post op from removal of L groin bypass and revision of a bifem bypass using bovine graft. He is tolerating his post op pain well. On oral pain meds. No complaints of any foot pain. Physical Exam Constitutional: WD/WN, vitals as above no acute distress Cardiovascular: Vessels: posterior tibial pulses present (left present and palpable.) Skin: + wound (Wounds are dry and clean. Hematoma of abdominal incision unchanged.) and + incision (Left groin is a wound VAC in place) Results & Data Vital Signs (Past 12 Hours) Vital Signs Temp Pulse Pulse Resp BP BP Pulse Ox 07/30/19 07:51 88 07/30/19 07:18 37.0 C 83 18 109/62 92 07/30/19 03:43 36.6 C 80 19 100/63 92 07/29/19 23:27 36.7 C 81 19 104/66 93
--- NOTE | 2019-07-30 12:11 | Family Medicine Progress Note ---
Date of Service July 30, 2019 Assessment & Plan (1) Infected prosthetic vascular graft: 59yo M PMH HTN, DM with neuropathy, COPD, PAD with bilat LE ischemia, h/o fem/fem bypass, h/o ax/fem bypass, admitted 07/14 for bleeding incision with sepsis, +Blood cx (Gram + cocci and staph), developed L groin incision infection with MRSA. Medicine consulted for chronic medical issues and glucose management. Streptococcal sepsis (resolved) s/p Femoral bypass revision: -S/P femoral bypass revision and insertion of wound VAC to left groin (07/21/19) secondary to recent MRSA sepsis and infection of graft -Cultures now growing out Anaerococcus prevotii, appreciate infectious disease recommendations -Infectious disease consulted, appreciate recs -Continue vancomycin, last day 08/04. Depending on date of discharge, may need PICC line placed -Vascular managing postoperative care -daily wound dressing -prn dilaudid 1 mg for dressing changes -Patient is very deconditioned, encourage PT Post-op anemia and hematoma -2U PRBCs administered 07/23/19 due to 2 point drop in Hb (10.6-->8.6), Dr. Alanis made aware of bleeding from incision, directed to apply pressure and monitor. 07/24 Night resident contacted to evaluate suspected hematoma with active bleeding, CT scan obtained demonstrating possible bleeding. Physical exam not consistent with significant bleed. Hemoglobin on 07/25 dropped from 9.7 to 8.9 (likely dilutional component). -Hemoglobin stable, no signs or symptoms of anemia -Continue to trend CBC Anticoagulation -Managed per vascular surgery. Transitioned heparin drip to warfarin. Constipation, resolved -Scheduled MiraLAX twice daily -Scheduled Colace twice daily -Continue daily Relistor until no longer requiring opioid for analgesia T2DM -On multiple home agents. A1C in June was 8.3. -Is tolerating T2DM diet. -Glycemic consult placed; pharmacy managing further recommendations. -Continue home Neurontin for neuropathic pain COPD (chronic obstructive pulmonary disease) -COPD without acute exacerbation. Adequate oxygenation on room air. No wheeze. -Continue Combivent -Continue Albuterol PRN -Continue to monitor Hypertension: -Blood pressure well controlled -Continue lisinopril 40 mg JAMES on CPAP: -States he is compliant with CPAP at home. Does not wish to wear it here -Monitor saturations Iatrogenic hypervolemia -Given significant fluids in the postop period, patient was total of 10 L positive. Gave one-time dose of 20 mg of Lasix on 07/25 patient diuresed 2 L. 07/26 another 0.5L patient still net +7.5 L. 07/27 diuresed 4L still +5.5 L -Continue diuresis with 20 mg of Lasix -Monitor I's and O's Hypokalemia -Secondary to diuretics. -Repleted 20 mEq prn Depression 2/2 to medical condition Patient is depressed secondary to his prolonged hospitalization, multiple medical complications. Patient endorsed feeling like he wanted to end it all yesterday. Psychiatry was consulted, they do not feel that the patient is actively suicidal, and this was in fact use of hyperbole. Patient did not endorse to primary team during physical exam this morning that he is more depressed than he ever has been, however he feels that once he begins progressing towards discharge he will feel significant be better. We will continue to monitor, patient not requesting medical therapy currently. Rash Likely fungal secondary to dampness not ambulating and laying down for days on it. -Nystatin powder for 2 weeks FENa: Type II diabetic diet Code Status: DNR/DNI DVT PPX: warfarin PT/OT: Consulted Dispo: PCU, referral to rehab to be placed on 07/31 (2) Hypertension: (3) COPD (chronic obstructive pulmonary disease): (4) JAMES on CPAP: (5) Diabetes: (6) Acute blood loss as cause of postoperative anemia: Supervising Physician Co-Signing Physician Notes Patient seen and examined with Dr. Negrete. I agree with their exam findings, review of systems, assessment and plan. I have personally reviewed the lab work and imaging from today. patient feels great, he moved his bowels again, making urine pain in groin is worsened by changing wound vac but otherwise he is okay Exam: overweight male, NAD, lungs CTA bilaterally, no distress, regular S1 S2 no murmur abd soft, NT, ND, extremities are warm, left leg appears well perfused, trace edema in legs, much improved overall skin with fungal appearing rash in gluteal clefts, getting better - Acute blood loss anemia in post operative setting: Hb stable at >8, BP stable, will continue to monitor tomorrow - Constipation: resolved on 07/27 with Miralax BID and relistor, had another BM on 07/30 - Volume overload: due to transfusion, IV fluids at time of admission, excellent response to Lasix at -4000mL no further Lasix at this time, he is ambulating which will help mobilize fluids - Rash: appears to be fungal, likely from dampness and not getting up and antibiotic use will recommend Nystatin powder for two weeks - Infected grafts: ID recommended 14 days total IV antibiotics, Vancomycin wound cultures were from 07/21 so last day would be 08/04 blood cultures were no growth on 07/17 consented for PICC, will order for placement per vascular surgery, likely for d/c tomorrow or Wednesday medically he is stable Subjective Patient reports he continues to do better every day. He states he does dread wound changes and the associated pain, but overall pain is well controlled and managed. Eager for discharge. Has been moving bowels well in past few days. Review of Systems Review of Systems: All systems reviewed & are unremarkable except as noted in HPI & below Constitutional: + weakness; no fever and no chills Gastrointestinal: + abdominal pain Physical Exam Constitutional: WD/WN, vitals as above + obese and comfortable; no acute distress Eyes: PERRL, conjunctivae normal, anicteric sclerae Neck: trachea midline, no thyromegaly normal visual inspection, trachea midline and + facial hair; neck nontender Respiratory: normal respiratory effort and normal percussion; no respiratory distress and does not use accessory muscles Auscultation: lungs clear to auscultation bilaterally Cardiovascular: RRR, no murmur, no edema Rate/Rhythm: regular rate, regular rhythm and + tachycardic Heart Sounds: normal S1 and normal S2; no gallop, no murmur and no cardiac rub Vessels: normal peripheral pulses and posterior tibial pulses present (left present to doppler); no JVD Extremities: no edema Gastrointestinal (Abdomen): normal bowel sounds, soft, nontender, no hepatosplenomegaly Inspection/Auscultation: abdomen normal to inspection and normal bowel sounds Musculoskeletal: no cyanosis or clubbing, extremities motor strength 5/5 Spine: thoracic spine normal to inspection and lumbar spine normal to inspection; no pain with cervical ROM Extremities: strength 5/5 throughout Skin: no rashes, warm and dry normal turgor and + wound (Dressing intact left groin) Neurologic: patellar DTR's 2+ bilat, sensation intact CN's II-XI intact bilaterally and moves all extremities; no focal motor deficits Motor/Sensory: normal movement and no sensory deficit Psychiatric: A+Ox3, euthymic affect Orientation: alert, oriented x 3 and cooperative Lymphatic: no cervical or axillary lymphadenopathy Results & Data Vital Signs (Past 12 Hours) Vital Signs Temp Pulse Pulse Resp BP BP Pulse Ox 07/30/19 11:12 97.9 F 77 22 110/67 95 07/30/19 07:51 88 07/30/19 07:18 98.6 F 83 18 109/62 92 07/30/19 03:43 97.9 F 80 19 100/63 92 Laboratory Results 07/30/19 07/29/19 07/29/19 Range/Units 07:16 20:51 16:30 POC Glucose 131 H 113 H 127 H (70-99) Medications Administered Current Inpatient Medications Acetaminophen (Tylenol) 650 mg PO Q4H PRN PRN Reason: Pain or Fever Stop: 08/11/19 15:32 Hydrocodone Bitart/Acetaminophen ([place] [id number]) 1 tab PO QID PRN PRN Reason: Pain Stop: 08/09/19 17:51 Last Admin: 07/30/19 08:03 Dose: 1 tab Documented by: Albuterol (Ventolin Hfa) 2 puffs INH QID PRN PRN Reason: Shortness Of Breath Stop: 08/11/19 15:38 Albuterol (Combivent Respimat) 2 puffs INH QID [facility]FA Stop: 08/11/19 20:59 Last Admin: 07/30/19 08:04 Dose: 2 puffs Documented by: Aspirin (Ecotrin) 325 mg PO QAM [facility]FA Stop: 08/12/19 08:59 Last Admin: 07/30/19 08:05 Dose: 325 mg Documented by: Dextrose (Dextrose 50%) 25 - 50 ml IV UD PRN; Protocol PRN Reason: Hypoglycemia Protocol Stop: 08/17/19 10:44 Docusate Sodium (Colace) 100 mg PO BID [facility] Stop: 08/17/19 11:14 Last Admin: 07/30/19 08:03 Dose: 100 mg Documented by: Empagliflozin (Jardiance) 1 ea PO DAILY [facility] Stop: 08/23/19 08:59 Last Admin: 07/30/19 08:05 Dose: 1 ea Documented by: Ferrous Sulfate (Feosol) 325 mg PO BIDM [facility] Stop: 08/29/19 16:59 Gabapentin (Neurontin) 800 mg PO TID [facility] Stop: 08/14/19 20:59 Last Admin: 07/30/19 08:05 Dose: 800 mg Documented by: Glucagon (Glucagen) 1 mg IM UD PRN; Protocol PRN Reason: Hypoglycemia Protocol Stop: 08/17/19 10:44 Glucose (Glucose 40%) 15 - 30 gm PO UD PRN; Protocol PRN Reason: Hypoglycemia Protocol Stop: 08/17/19 10:44 Glucose (Dex4 Glucose) 4 - 8 tabs PO UD PRN; Protocol PRN Reason: Hypoglycemia Protocol Stop: 08/17/19 10:44 Hydromorphone HCl (Dilaudid) 1 mg IV Q4H PRN PRN Reason: Pain Stop: 08/12/19 08:45 Last Admin: 07/30/19 01:58 Dose: 1 mg Documented by: Vancomycin HCl 2,000 mg/ (Sodium Chloride) 540 mls @ 200 mls/hr IV Q10H [facility]; Protocol Stop: 08/31/19 18:29 Last Infusion: 07/30/19 11:32 Dose: Infused Documented by: Sodium Chloride (Nss) 250 mls @ 15 mls/hr IV .[id number] PRN PRN Reason: For Transfusion Stop: 08/22/19 09:56 Insulin Aspart (Novolog Flexpen) 0 units SC [facility] Stop: 08/22/19 11:29 Last Admin: 07/30/19 08:07 Dose: 4 units Documented by: Insulin Glargine (Lantus Solostar Pen) 10 units SC [facility]; Protocol Stop: 08/28/19 20:59 Last Admin: 07/29/19 20:57 Dose: 10 units Documented by: Lisinopril (Zestril) 40 mg PO QAM [facility] Stop: 08/12/19 08:59 Last Admin: 07/30/19 08:05 Dose: 40 mg Documented by: Metformin HCl (Glucophage) 1,000 mg PO BIDM [facility] Stop: 08/21/19 16:59 Last Admin: 07/30/19 08:05 Dose: 1,000 mg Documented by: Methylnaltrexone [place] (Relistor) 12 mg SQ Q2D [facility] Stop: 08/26/19 11:59 Last Admin: 07/29/19 13:31 Dose: 12 mg Documented by: Miscellaneous (Carbohydrates For Hypoglycemia) 15 - 30 gm PO UD PRN PRN Reason: Hypoglycemia Treatment Stop: 08/17/19 10:44 Miscellaneous Information (Consult) 1 ea N/A UD PRN PRN Reason: Consult Stop: 08/13/19 17:33 Last Admin: 07/21/19 13:30 Dose: 1 ea Documented by: Miscellaneous Information (Consult Glycemic Management Pharmacy) 1 ea N/A UD PRN PRN Reason: Consult Stop: 08/20/19 15:59 Nitroglycerin (Nitrostat) 0.4 mg SL UD PRN PRN Reason: Chest Pain Stop: 08/11/19 15:32 Nystatin (Mycostatin) 1 appln EXT BID [facility] Stop: 08/28/19 11:44 Last Admin: 07/30/19 08:51 Dose: 1 appln Documented by: Polyethylene Glycol (Miralax Powder Packet) 17 gm PO BID PRN PRN Reason: Constipation Stop: 08/17/19 11:02 Warfarin Sodium (Coumadin) 7.5 mg PO DAILY@1600 [facility] Stop: 08/29/19 15:59 Zolpidem Tartrate (Ambien) 5 mg PO HS PRN PRN Reason: Sleep Stop: 08/20/19 00:00 Last Admin: 07/21/19 00:44 Dose: 5 mg Documented by: PG Care Time/CCT Total # of Minutes Spent Total Time Spent with Patient: Total time spent is greater than 50% in coordination of care (as documented) at patient's floor/unit and/or counseling patient: Resident Activity Tracking Resident Involvement: Resident Care Provided Care Provided: Adult Hospital Medicine (1) Diabetes Diabetes mellitus complication detail: with polyneuropathy Diabetes mellitus complication status: with neurologic complications 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
[2019-07-30] MEDS ORDERED: WARFARIN SOD 7.5 MG TAB PO SCH (16:00)
[2019-07-30] MEDS: FERROUS SULFATE 325 MG TAB PO SCH (16:10)
[2019-07-30] MEDS: INSULIN GLARGINE SOLOSTAR 100 UNITS/ML 3 ML PEN SC SCH (21:10)
[2019-07-31] MEDS: HYDROCODONE/ACETAMINOPHEN 10/325 TAB PO PRN ×4 (02:51→23:12)
[2019-07-31] MEDS ORDERED: VANCOMYCIN TROUGH ONE (03:30)
[2019-07-31 04:08] LABS: INR 4.4 (0.9-1.1); Prothrombin Time 40.7 Seconds (9.0-12.0)
[2019-07-31 04:09] LABS: Creatinine Clr Calc Pharmacy 151.6 ml/min; Est GFR (African American) 125.1; Est GFR (Non-African American) 107.9
[2019-07-31] MEDS: VANCOMYCIN HCL 2,000 MG in SODIUM CHLORIDE 0.9% 500 ML IV SCH (04:59)
[2019-07-31] MEDS: lisinopriL 40 MG TAB PO SCH (08:08)
[2019-07-31] MEDS: GABAPENTIN 800 MG TAB PO SCH ×3 (08:09→21:10)
[2019-07-31] MEDS: FERROUS SULFATE 325 MG TAB PO SCH ×2 (08:09→17:40)
[2019-07-31] MEDS: ASPIRIN 325 MG ECTAB PO SCH (08:10)
[2019-07-31] MEDS: METFORMIN HCL 500 MG TAB PO SCH ×2 (08:10→17:39)
[2019-07-31] MEDS: EMPAGLIFLOZIN 10 MG PO SCH (08:11)
[2019-07-31] MEDS: NYSTATIN POWDER 15GM BTL EXT SCH ×2 (08:14→21:10)
[2019-07-31] MEDS: VANCOMYCIN HCL 1,750 MG in SODIUM CHLORIDE 0.9% 500 ML IV SCH ×2 (08:19→21:03)
[2019-07-31] MEDS: DOCUSATE SODIUM 100 MG CAP PO SCH ×2 (08:19→21:10)
[2019-07-31] MEDS: IPRATROPIUM BROMIDE/ALBUTEROL respimat INH INH SCH ×4 (08:22→21:10)
[2019-07-31] MEDS: INSULIN ASPART 100 UNITS/ML 3 ML PEN SC SCH ×4 (08:25→21:11)
--- NOTE | 2019-07-31 08:40 | Pharmacy Report ---
Pharmacy Glycemic Short Note 2 - Date of Service July 31, 2019 - Glycemic Short BSG Results (Last 24 hours): 07/30/19 07/30/19 07/30/19 11:44 16:01 19:55 POC Glucose 116 H 129 H 157 H 07/31/19 07:12 POC Glucose 130 H OUTPATIENT ANTIDIABETIC REGIMEN: * Toujeo 15 units qPM * Metformin 1000 mg BID * Jardiance 10 mg qam * Trulicity weekly ASSESSMENT: 07/31/19: * BSGs well controlled over the last 24 hrs, range: 116-157 * Pt currently receiving home doses of Jardiance + Metformin as well as basal/bolus SQ insulin * Fasting BSG 130 this AM, at goal with 10 units Lantus on board. No changes to regimen. * Renal fxn assessed this AM. Tolerating diet. Ok to continue Metformin at current dose. * No changes to inpatient regimen required at this time. PLAN FOR INPATIENT GLYCEMIC CONTROL: * Jardiance 10 mg daily * Metformin 1,000mg PO BIDM * Basal insulin : * Lantus 10 units SQ HS * Bolus insulin * NovoLog per scale ACHS or Q6hrs while NPO * Goal Range: Low 110 mg/dL - High 140 mg/dL * Correction Factor: 25 mg/dL/unit * Nutritional / Prandial insulin per carb ratio of 1 unit per 8 grams CHO consumed PLAN FOR DISCHARGE: A1c = 8.3% on 06/15/19 Goal A1c = 7% based on age and comorbidities * Patient currently on triple therapy + basal insulin, if adequate control not achieved with this regimen, could potentially initiate prandial insulin with meals Support Patient Self-Management Healthy Lifestyle (diet, exercise, and smoking cessation) Disease self-management (SMBG) Prevention of complications (BP, Lipid goals, Immunizations)
[2019-07-31] MEDS: HYDROmorphone INJ 1 MG/ML SYRINGE IV PRN (08:42)
--- NOTE | 2019-07-31 09:55 | Surgery Progress Note ---
Date of Service July 31, 2019 Assessment & Plan (1) Infected prosthetic vascular graft: Patient is doing well, improving. Planning on d/c when ins auth obtained. Will require wound vac changes at d/c, IV vanco for another 4 days, and oral pain control at d/c. (2) Acute blood loss as cause of postoperative anemia: Hemoglobin is stable at this time. Subjective 59 yo s/p removal of infected L groin bpg and revision of ax bifem with bovine graft, seen in f/u today. Pt states pain overall more controlled than last week and is anxious for discharge. Has been OOB and even ambulating. Pt denies any other new complaints. Review of Systems Review of Systems: All systems reviewed & are unremarkable except as noted in HPI & below Physical Exam Constitutional: WD/WN, vitals as above + ill appearing (chronically); no acute distress Respiratory: normal respiratory effort, lungs clear to auscultation Cardiovascular: Rate/Rhythm: regular rate and regular rhythm Vessels: + abnormal peripheral pulses (dopplerable) Gastrointestinal (Abdomen): Inspection/Auscultation: abdomen normal to inspection and normal bowel sounds Percussion/Palpation: abdomen nontender Musculoskeletal: Extremities: strength 5/5 throughout Skin: + wound (L groin w granulation, L ankle w granulation, other wounds dry ) and + ecchymosis (large old ecchymosis to L lower abd tender, yellow) Psychiatric: Orientation: alert and oriented x 3 Affect: + anxious affect, + irritable affect and + angry affect Results & Data Vital Signs (Past 12 Hours) Vital Signs Temp Pulse Resp BP Pulse Ox 07/31/19 07:05 36.5 C 78 16 120/72 93 07/31/19 02:49 36.9 C 82 16 124/72 95 07/30/19 23:14 36.4 C L 82 17 121/66 95
[2019-07-31] MEDS ORDERED: HYDROmorphone HCL 2 MG TAB PO PRN (09:58)
--- NOTE | 2019-07-31 10:17 | Pharmacy Report ---
Pharmacy Abx Dose Short Note - Date of Service July 31, 2019 - Assessment & Plan Assessment * 59 year old M receiving VANCOMYCIN IV for treatment of Grp B strep bacteremia, L groin infection (MRSA in wound cx) w/ infected prosthetic vascular graft * Day # 18 of antimicrobial therapy with vancomycin (reported penicillin allergy) * Patient is s/p removal of infected bypass graft * 1st set of negative BLCXs 07/17 * Planned duration at least 14 days from negative blcx's per ID recs. Today's note from endovasc states an additional 4 days of vancomycin needed * Renal fxn stable based upon UOP and SCr Plan Vancomycin * Trough level of 21.6 mcg/mL is supratherapeutic. Prior doses hung on schedule. Level was drawn at the appropriate time as well * Change to 1750 mg IV every 12 hours * Goal trough level for bacteremia : 15 to 20 mcg/mL * Will repeat trough level in 2 days to confirm new dose still producing therapeutic level. Pharmacy will continue to follow and will adjust dose/frequency as necessary. Thank you.
[2019-07-31 10:43] LABS: Basophils # (auto) 0.07 K/uL (0-0.2); Eosinophils # (auto) 0.27 K/uL (0-0.5); Eosinophils % (auto) 3.9 %; Hematocrit (blood only) 27.5 % (42-52); Hemoglobin 8.6 g/dL (14.0-18.0); Immature Granulocytes # (auto) 0.03 K/uL (0.00-0.02); Immature Granulocytes % (auto) 0.4 %; Lymphocytes # (auto) 1.68 K/uL (1.2-3.4); Mean Corpuscular Hgb Conc 31.3 g/dL (32-36); Mean Corpuscular Volume 99.3 fL (80-100); Mean Platelet Volume 8.5 fL (7.4-10.4); Monocytes # (auto) 0.85 K/uL (0.11-0.59); Monocytes % (auto) 12.2 %; Neutrophils # (auto) 4.09 K/uL (1.4-6.5); Neutrophils % (auto) 58.5 %; Platelet Count 404 K/uL (130-400); RDW Coefficient of Variation 17.3 % (11.5-14.5); RDW Standard Deviation 61.7 fL (36.4-46.3); Red Blood Count 2.77 M/uL (4.7-6.1); White Blood Count 6.99 K/uL (4.8-10.8)
[2019-07-31] MEDS: METHYLNALTREXONE BROMIDE 12 MG/0.6 ML VIAL SQ SCH (11:21)
--- NOTE | 2019-07-31 14:13 | Family Medicine Progress Note ---
Date of Service July 31, 2019 Assessment & Plan (1) Infected prosthetic vascular graft: 59yo M PMH HTN, DM with neuropathy, COPD, PAD with bilat LE ischemia, h/o fem/fem bypass, h/o ax/fem bypass, admitted 07/14 for bleeding incision with sepsis, +Blood cx (Gram + cocci and staph), developed L groin incision infection with MRSA. Medicine consulted for chronic medical issues and glucose management. Streptococcal sepsis (resolved) s/p Femoral bypass revision: -S/P femoral bypass revision and insertion of wound VAC to left groin (07/21/19) secondary to recent MRSA sepsis and infection of graft -Cultures now growing out Anaerococcus prevotii, appreciate infectious disease recommendations -Infectious disease consulted, appreciate recs -Continue vancomycin, last day 08/04. Depending on date of discharge, may need PICC line placed -Vascular managing postoperative care -daily wound dressing -prn dilaudid 1 mg for dressing changes -Patient is very deconditioned, encourage PT Acute blood loss Post-op anemia and hematoma -2U PRBCs administered 07/23/19 due to 2 point drop in Hb (10.6-->8.6), Dr. Alanis made aware of bleeding from incision, directed to apply pressure and monitor. 07/24 Night resident contacted to evaluate suspected hematoma with active bleeding, CT scan obtained demonstrating possible bleeding. Physical exam not consistent with significant bleed. Hemoglobin on 07/25 dropped from 9.7 to 8.9 (likely dilutional component). -Hemoglobin stable, no signs or symptoms of anemia -Will order CBC today No evidence of current bleeding, but INR supratherapeutic, will hold coumadin Anticoagulation -Managed per vascular surgery. Transitioned heparin drip to warfarin. Holding coumadin today secondary to elevated INR Constipation, resolved -Scheduled MiraLAX twice daily -Scheduled Colace twice daily -Continue daily Relistor until no longer requiring opioid for analgesia T2DM -On multiple home agents. A1C in June was 8.3. -Is tolerating T2DM diet. -Glycemic consult placed; pharmacy managing further recommendations. -Continue home Neurontin for neuropathic pain COPD (chronic obstructive pulmonary disease) -COPD without acute exacerbation. Adequate oxygenation on room air. No wheeze. -Continue Combivent -Continue Albuterol PRN -Continue to monitor Hypertension: -Blood pressure well controlled -Continue lisinopril 40 mg JAMES on CPAP: -States he is compliant with CPAP at home. Does not wish to wear it here -Monitor saturations Iatrogenic hypervolemia -Given significant fluids in the postop period, patient was total of 10 L positive. Gave one-time dose of 20 mg of Lasix on 07/25 patient diuresed 2 L. 07/26 another 0.5L patient still net +7.5 L. 07/27 diuresed 4L still +6 L by our tabulation Patient appears euvolemic Hypokalemia -Secondary to diuretics. -Repleted 20 mEq prn Depression 2/2 to medical condition Patient is depressed secondary to his prolonged hospitalization, multiple medical complications. Patient endorsed feeling like he wanted to end it all yesterday. Psychiatry was consulted, they do not feel that the patient is actively suicidal, and this was in fact use of hyperbole. Patient did not endorse to primary team during physical exam this morning that he is more depressed than he ever has been, however he feels that once he begins progressing towards discharge he will feel significant be better. We will continue to monitor, patient not requesting medical therapy currently. Patient denies SI/HI today Rash Likely fungal secondary to dampness not ambulating and laying down for days on it. -Nystatin powder for 2 weeks FENa: Type II diabetic diet Code Status: DNR/DNI DVT PPX: warfarin PT/OT: Consulted Dispo: PCU, Hopefully discharge tomorrow (2) Hypertension: (3) COPD (chronic obstructive pulmonary disease): (4) JAMES on CPAP: (5) Diabetes: (6) Acute blood loss as cause of postoperative anemia: Supervising Physician Co-Signing Physician Notes Resident Physician Supervision Note: I independently interviewed and examined the patient and verified the perez history and physical, reviewed labs and image studies, discussed the case with the resident Dr. Delarosa and agree with the findings and care plan. Subjective Mr. Jones is doing alright this morning, hoping to go to be discharged to SNF soon. He does not endorse any issues other than pain during bandage changes. He is very concerned that we will not be able to adequately control his discomfort at outside institution. He is on board with having a PICC line placed. Review of Systems Review of Systems: All systems reviewed & are unremarkable except as noted in HPI & below Physical Exam Physical Exam: Constitutional: 59 year old man obese, appears stated age lying in bed. Eyes: Anicteric sclerae, EOMMI Neck: Supple, no masses Respiratory: Chest expansion symmetric, lung sounds vesicular in all lung marlow, no extraneous sounds Cardiovascular: Regular rate and rhythm, no murmurs rubs skips or gallops. Pulses obtainable in all four extremities. Gastrointestinal: Abdomen soft/nontender Integumentary: Open wound in groin area, exquisitely painful Results & Data Vital Signs (Past 12 Hours) Vital Signs Temp Pulse Resp BP BP Pulse Ox 07/31/19 11:28 36.8 C 96 H 18 92/61 L 98 07/31/19 07:05 36.5 C 78 16 120/72 93 07/31/19 02:49 36.9 C 82 16 124/72 95 PG Care Time/CCT Total # of Minutes Spent Total Time Spent with Patient: Total time spent is greater than 50% in coordination of care (as documented) at patient's floor/unit and/or counseling patient: Resident Activity Tracking Resident Involvement: Resident Care Provided Care Provided: Adult Hospital Medicine (1) Diabetes Diabetes mellitus complication detail: with polyneuropathy Diabetes mellitus complication status: with neurologic complications 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
[2019-07-31] MEDS: INSULIN GLARGINE SOLOSTAR 100 UNITS/ML 3 ML PEN SC SCH (21:13)
[2019-08-01] MEDS: HYDROCODONE/ACETAMINOPHEN 10/325 TAB PO PRN ×2 (06:40→14:21)
[2019-08-01 07:03] LABS: INR 4.7 (0.9-1.1); Prothrombin Time 43.1 Seconds (9.0-12.0)
--- NOTE | 2019-08-01 09:29 | Surgery Progress Note ---
Date of Service August 01, 2019 Assessment & Plan (1) Infected prosthetic vascular graft: Patient is doing well, improving. Planning on d/c when ins auth obtained. Will require wound vac changes at d/c, IV vanco for another 4 days, and oral pain control at d/c. (2) Acute blood loss as cause of postoperative anemia: Hemoglobin is stable at this time. Subjective 59 yo m s/p removal of infected L groin bpg and revision of ax bifem BPG using bovine graft, seen in f/u today. Pt states some pain especially with dressing changes, but controlled with medications, no longer requiring IV pain me dication. Had BM this AM. No new complaints Review of Systems Review of Systems: All systems reviewed & are unremarkable except as noted in HPI & below Physical Exam Constitutional: WD/WN, vitals as above + ill appearing (chronically); no acute distress Respiratory: normal respiratory effort, lungs clear to auscultation Cardiovascular: Rate/Rhythm: regular rate and regular rhythm Vessels: + abnormal peripheral pulses (dopplerable) Gastrointestinal (Abdomen): Inspection/Auscultation: abdomen normal to inspection and normal bowel sounds Percussion/Palpation: abdomen nontender Musculoskeletal: Extremities: strength 5/5 throughout Skin: + wound (L groin w granulation, L ankle w granulation, other wounds dry ) and + ecchymosis (large old ecchymosis to L lower abd tender, yellow) Psychiatric: Orientation: alert and oriented x 3 Affect: + anxious affect, + irritable affect and + angry affect Results & Data Vital Signs (Past 12 Hours) Vital Signs Temp Pulse Resp BP Pulse Ox 08/01/19 08:02 36.7 C 86 18 99/51 L 94 08/01/19 03:11 36.3 C L 81 18 121/72 94 07/31/19 23:09 36.7 C 80 19 135/69 97
[2019-08-01] MEDS: lisinopriL 40 MG TAB PO SCH (09:50)
[2019-08-01] MEDS: ASPIRIN 325 MG ECTAB PO SCH (09:50)
[2019-08-01] MEDS: METFORMIN HCL 500 MG TAB PO SCH (09:50)
[2019-08-01] MEDS: FERROUS SULFATE 325 MG TAB PO SCH (09:50)
[2019-08-01] MEDS: IPRATROPIUM BROMIDE/ALBUTEROL respimat INH INH SCH ×2 (09:50→13:28)
[2019-08-01] MEDS: GABAPENTIN 800 MG TAB PO SCH ×2 (09:50→13:27)
[2019-08-01] MEDS: EMPAGLIFLOZIN 10 MG PO SCH (09:51)
[2019-08-01] MEDS: NYSTATIN POWDER 15GM BTL EXT SCH (09:51)
[2019-08-01] MEDS: INSULIN ASPART 100 UNITS/ML 3 ML PEN SC SCH ×2 (09:55→13:06)
[2019-08-01] MEDS: DOCUSATE SODIUM 100 MG CAP PO SCH (10:01)
[2019-08-01] MEDS: VANCOMYCIN HCL 1,750 MG in SODIUM CHLORIDE 0.9% 500 ML IV SCH (10:01)
--- NOTE | 2019-08-01 10:32 | Infectious Disease Progress Nt ---
Date of Service August 01, 2019 Assessment & Plan (1) Streptococcal sepsis: Patient with streptococcal sepsis, with positive wound culture for MRSA as well. Now status post removal of infected graft. Patient will be continued on current IV antibiotics, likely will require at least 2 weeks of IV therapy. Will follow. Discussed with surgery, reviewed culture results. Would suggest transitioning to bactrim DS and omnicef 300mg po bid after vanco course is complete, pending additional outpt followup. Zyvox would be alternative but due to likely high cost of co pay will transition to bactrim and omnicef. Subjective Received phone call from surgery regarding home abx. He is s/p removal of infected graft, cultures grew MSSA and GBS. He was previously being followed by Dr. Yin, last seen 07/25. He was to continue on vanco x 14 days post op. D/C planning to snf in progress, he will complete IV vanco there. Surgery would like to then transition to po abx pending office followup next week. pt is afebrile. cultures reviewed. tolerating vanco. Results & Data Vital Signs (Past 12 Hours) Vital Signs Temp Pulse Resp BP Pulse Ox 08/01/19 08:02 36.7 C 86 18 99/51 L 94 08/01/19 03:11 36.3 C L 81 18 121/72 94 07/31/19 23:09 36.7 C 80 19 135/69 97 Laboratory Results Microbiology 07/21/19 17:12 Leg,Left Gram Stain - Final 07/21/19 17:12 Leg,Left Aerobic and Anaerobic Culture - Final Anaerococcus prevotii Anaerobic gram positive bacill Anaerobic gram negative bacill 07/21/19 Unknown Leg Gram Stain - Final 07/21/19 Unknown Leg Aerobic and Anaerobic Culture - Final Coag negative Staphylococcus 07/21/19 Unknown Leg Gram Stain - Final 07/21/19 Unknown Leg Aerobic and Anaerobic Culture - Final Coag negative Staphylococcus 07/17/19 07:10 Blood Aerobic Blood Culture - Final No growth in Aerobic bottle after 5 days. 07/17/19 07:10 Blood Anaerobic Blood Culture - Final No growth in Anaerobic bottle after 5 days. 07/17/19 06:54 Blood Aerobic Blood Culture - Final No growth in Aerobic bottle after 5 days. 07/17/19 06:54 Blood Anaerobic Blood Culture - Final No growth in Anaerobic bottle after 5 days. 07/14/19 16:31 Blood Aerobic Blood Culture - Final No growth in Aerobic bottle after 5 days. 07/14/19 16:31 Blood Anaerobic Blood Culture - Final Group B Beta Strep 07/14/19 13:41 Thigh,Left Gram Stain - Final 07/14/19 13:41 Thigh,Left Aerobic and Anaerobic Culture - Final Group B Beta Strep Finegoldia magna Anaerococcus prevotii 07/15/19 12:28 Leg Gram Stain - Final 07/15/19 12:28 Leg Wound Culture - Final Staph aureus MRSA 07/14/19 15:44 Blood Aerobic Blood Culture - Final Group B Beta Strep 07/14/19 15:44 Blood Anaerobic Blood Culture - Final Group B Beta Strep PG Care Time/CCT Total # of Minutes Spent Total Time Spent with Patient: Total time spent is greater than 50% in coor dination of care (as documented) at patient's floor/unit and/or counseling patient: (1) Streptococcal sepsis Sepsis acute organ dysfunction status: unspecified Qualified Code(s): A40.9 - Streptococcal sepsis, unspecified
--- NOTE | 2019-08-01 10:51 | Family Medicine Progress Note ---
Date of Service August 01, 2019 Assessment & Plan (1) Infected prosthetic vascular graft: 59yo M PMH HTN, DM with neuropathy, COPD, PAD with bilat LE ischemia, h/o fem/fem bypass, h/o ax/fem bypass, admitted 07/14 for bleeding incision with sepsis, +Blood cx (Gram + cocci and staph), developed L groin incision infection with MRSA. Medicine has been consulted for chronic medical issues and glucose management. Streptococcal sepsis (resolved) s/p Femoral bypass revision: -S/P femoral bypass revision and insertion of wound VAC to left groin (07/21/19) secondary to recent MRSA sepsis and infection of graft -Cultures now growing out Anaerococcus prevotii, appreciate infectious disease recommendations -Infectious disease consulted, appreciate recs -Continue vancomycin, last day 08/04. Picc line placed last night for outpatient vancomycin administration Vascular managing postoperative care -daily wound dressing -prn dilaudid 1 mg for dressing changes -Patient is very deconditioned, encouraged PT but patient is very reticent Post-op anemia and hematoma 2U PRBCs administered 07/23/19 due to 2 point drop in Hb (10.6-->8.6), Dr. Alanis made aware of bleeding from incision, directed to apply pressure and monitor. 07/24 Night resident contacted to evaluate suspected hematoma with active bleeding, CT scan obtained demonstrating possible bleeding. Physical exam not consistent with significant bleed. Hemoglobin on 07/25 dropped from 9.7 to 8.9 (likely dilutional component). -Hemoglobin stable today, no signs or symptoms of anemia No evidence of current bleeding, but INR supratherapeutic, holding coumadin Anticoagulation -Managed per vascular surgery. Transitioned heparin drip to warfarin. Holding coumadin today secondary to elevated INR 4.7 Constipation, resolved -Scheduled MiraLAX twice daily -Scheduled Colace twice daily -Continue daily Relistor until no longer requiring opioid for analgesia T2DM -On multiple home agents. A1C in June was 8.3. -Is tolerating T2DM diet. -Glycemic consult placed; pharmacy managing further recommendations. -Continue home Neurontin for neuropathic pain COPD (chronic obstructive pulmonary disease) -COPD without acute exacerbation. Adequate oxygenation on room air. No wheeze. -Continue Combivent -Continue Albuterol PRN -Continue to monitor Hypertension: -Blood pressure well controlled -Continue lisinopril 40 mg JAMES on CPAP: -States he is compliant with CPAP at home. Does not wish to wear it here -Monitor saturations Iatrogenic hypervolemia -Given significant fluids in the postop period, patient was total of 10 L positive. Gave one-time dose of 20 mg of Lasix on 07/25 patient diuresed 2 L. 07/26 another 0.5L patient still net +7.5 L. 07/27 diuresed 4L still +6 L by our tabulation Patient appears euvolemic Hypokalemia -Secondary to diuretics. -Repleted 20 mEq prn Depression 2/2 to medical condition Patient is depressed secondary to his prolonged hospitalization, multiple medical complications. Patient endorsed feeling like he wanted to end it all over the weekend. Psychiatry was consulted, they do not feel that the patient is actively suicidal, and this was in fact use of hyperbole. Patient did tell primary team subsequently that he is more depressed than he ever has been, however he feels that once he begins progressing towards discharge he will feel significantly better. We will continue to monitor, patient not requesting medical therapy currently. Patient denies SI/HI today Rash Likely fungal secondary to dampness not ambulating and laying down for days on it. -Nystatin powder for 2 weeks FENa: Type II diabetic diet Code Status: DNR/DNI DVT PPX: warfarin PT/OT: Consulted Dispo: PCU, Hopefully discharge to SNF later today (2) Hypertension: (3) COPD (chronic obstructive pulmonary disease): (4) JAMES on CPAP: (5) Diabetes: (6) Acute blood loss as cause of postoperative anemia: Subjective Mr. Alegria is up eating breakfast and watching [employer] this morning, he tells me he is feeling well and denies any fever, chills, GI symptoms, breathing issues, and his pain is well controlled. He is anxious to be discharged today. Review of Systems Review of Systems: All systems reviewed & are unremarkable except as noted in HPI & below Physical Exam Physical Exam: Constitutional: 59 year old man obese, appears stated age sitting up under own power Eyes: Anicteric sclerae, EOMMI Neck: Supple, no masses Respiratory: Chest expansion symmetric, lung sounds vesicular in all lung marlow, no extraneous sounds Cardiovascular: Regular rate and rhythm, no murmurs rubs skips or gallops. Pulses obtainable in all four extremities. Gastrointestinal: Abdomen soft/nontender Integumentary: Open wound in groin area, exquisitely painful Results & Data Vital Signs (Past 12 Hours) Vital Signs Temp Pulse Resp BP Pulse Ox 08/01/19 08:02 36.7 C 86 18 99/51 L 94 08/01/19 03:11 36.3 C L 81 18 121/72 94 07/31/19 23:09 36.7 C 80 19 135/69 97 PG Care Time/CCT Total # of Minutes Spent Total Time Spent with Patient: Total time spent is greater than 50% in coordination of care (as documented) at patient's floor/unit and/or counseling patient: Resident Activity Tracking Resident Involvement: Resident Care Provided Care Provided: Adult Hospital Medicine (1) Hypertension Hypertension type: essential hypertension Qualified Code(s): I10 - Essential (primary) hypertension (2) COPD (chronic obstructive pulmonary disease) COPD type: unspecified COPD Qualified Code(s): J44.9 - Chronic obstructive pulmonary disease, unspecified (3) Diabetes Diabetes mellitus type: type 2 Diabetes mellitus half-way insulin use: with half-way use Diabetes mellitus complication status: with neurologic complications Diabetes mellitus complication detail: with polyneuropathy Qualified Code(s): E11.42 - Type 2 diabetes mellitus with diabetic polyneuropathy; Z79.4 - terminal clerk (current) use of insulin
[2019-08-01 11:10] VITALS: BP 125/67; TEMP 97.9; O2SAT 95
[2019-08-01 13:37] VITALS: PULSE 120
[2019-08-02] MEDS ORDERED: VANCOMYCIN TROUGH ONE (07:30)
--- NOTE | 2019-08-04 11:36 | Discharge Summary ---
Date of Service August 04, 2019 Admission HPI Per Admitting Provider Patient is a 59 yo m who underwent a left femoral to profunda bypass on 06/14/[address] Alanis d/t a nonhealing wound on L ankle. He has had an ax bifem bypass in the past performed at a different facility. He came to the ED with bleeding from the left groin and pain. Claims it was dark to light colored blood. No pus was noted. He does feel tired and light headed and has been somewhat confused per . Denies PETERS, fever, chills, chest pain, abd pain, N/V, rest pain, other complaints. Admission Exam Per Admitting Provider Constitutional: WD/WN, vitals as above Neck: trachea midline Respiratory: normal respiratory effort, lungs clear to auscultation Cardiovascular: Rate/Rhythm: regular rate and regular rhythm Gastrointestinal (Abdomen): Inspection/Auscultation: abdomen normal to inspection; abdomen not distended Percussion/Palpation: abdomen soft Skin: + incision (open area mid portion of left groin wound. no bleeding seen at this time ) dressing did have old dark blood on it. Neurologic: CN's II-XI intact bilaterally Motor/Sensory: normal movement and no sensory deficit Psychiatric: Orientation: alert and oriented x 3 Principal Diagnosis 1. s/p removal of infected L groin fem-profunda bypass, and revision of L limb of axillary-bifemoral bypass with bovine graft and LLE femoral to tibial bovine bypass graft 2. s/p L groin wound exploration 3. Infected L groin femoral-profunda prosthetic BPG; Group B streptococcal infection 4. Streptococcal Sepsis 5. MRSA infection L ankle wound Discharge Exam Constitutional WD/WN, vitals as above + ill appearing (chronically); no acute distress Respiratory normal respiratory effort, lungs clear to auscultation Cardiovascular Rate/Rhythm: regular rate and regular rhythm Vessels: + abnormal peripheral pulses (dopplerable) Gastrointestinal (Abdomen) Inspection/Auscultation: abdomen normal to inspection and normal bowel sounds Percussion/Palpation: abdomen nontender Musculoskeletal Extremities: strength 5/5 throughout Skin + wound (L groin w granulation, L ankle w granulation, other wounds dry ) and + ecchymosis (large old ecchymosis to L lower abd tender, yellow) Psychiatric Orientation: alert and oriented x 3 Affect: + anxious affect, + irritable affect and + angry affect Discharge Data Allergies Allergy/AdvReac Type Severity Reaction Status Date / Time Penicillins Allergy Severe THROAT Verified 07/12/19 14:30 SWELLS AND HIVES Consultations 07/13/19 00:20 Consult Case Management - Discharge Planning Routine 07/14/19 17:34 Consult Kalsominer Routine 07/15/19 08:00 Consult Case Management - Discharge Planning Routine 07/15/19 12:05 Consult Infectious Diseases Routine 07/19/19 16:28 Consult Hospitalist Routine 07/21/19 22:21 Consult Kalsominer Routine 07/22/19 08:00 Consult Case Management - Discharge Planning Routine 07/24/19 08:38 Consult Patient Rep / Service Excellence [Consult Patient Services] Routine 07/25/19 10:11 Consult Psychiatry Routine Procedures Performed Operation Date: 07/14/19 11:30 Actual Procedures p Exploration left groin, Revision proximal anastomosis(Left) - Denis Alanis MD Operation Date: 07/21/19 12:40 Actual Procedures p Revision Left Axillary to Right Femoral Bypass with Interposition Bovine Graft, Removal of Left Limb of Axillary Femoral Bypass, Left Axillary Femoral Graft to Prosthetic Tibial Bypass Extra Anatomical, Application of Wound Vac 12x4x5 - Denis Alanis MD s Angiogram Left Lower Extremity - Denis Alanis MD Ordered Studies 07/12/19 15:06 CT angio LE LT w inc wo if don Stat 07/21/19 12:24 EV angio LE LT Routine 07/25/19 02:07 CT abd pelvis IV con only Urgent Hospital Course (1) Infected prosthetic vascular graft: Pt admitted 07/13/19 after bleeding and dehiscence noted from L groin wound. He underwent exploration the following day, during which cultures were taken which were positive for Group B strep infection. Blood cx positive for strep infection. L ankle wound cx positive for MRSA. D/t infection, pt underwent removal of L fem-profunda prosthetic BPG and revision of ax bifem in OR on 07/21. After removal of infected graft, pt slowly but steadily improved. He had wound vac placed to L groin wound to facilitate healing and further blood cx were negative. Required blood transfusion post op d/t anemia. He was d/c to rehab on post op day #11. Patient is doing well, improving. Planning on d/c when ins auth obtained. Will require wound vac changes at d/c, IV vanco for another 4 days, and oral pain control at d/c. (2) Acute blood loss as cause of postoperative anemia: Hemoglobin is stable at this time. Total Time Total Time Spent Total Time Spent (In Minutes): 45 minutes Total Time Includes: Examination of the Patient, Discharge Planning, Medication Reconciliation and Communication With Other Providers Discharge Plan Discharge Items Patient Disposition: Transfer [facility]irement Fac Reason For Visit: LEFT GROIN BLEEDING Discharge Diagnosis: 1. s/p removal of L groin bypass graft and L limb of ax bifem bypass graft, and revision of ax bifem bypass with bovine interposition graft and fem to post tib bovine BPG. 2. s/p L groin exploration/debridement 3. L groin wound infection (s/p L femoral to profunda prosthetic bypass) 4. Severe Peripheral arterial disease Condition on Discharge: Good Activity: Per Instructions section Lifting: No more than 10 pounds and Wait until after follow-up appointment Bathing Comment: No bathing, must keep wounds dry Exercise/Sports: Gradually increase as tolerated Weightbearing: Full weightbearing Non-emergency contact: Primary Care Provider and Surgeon Call non-emergency contact if: your pain is worsening, your pain is concerning for you, your temperature is above 101 and your wound has increased redness Follow-up/Referrals: Izabella Akbar MD, PhD [Pathologist] - (Anticoagulation clinic consultation within 2 weeks. ) Sara Crowley PA-C [Physician Real Estate Broker Associate] - (Schedule follow up appt with Dr Alanis or Sara Crowley PA-C next week for staple removal.) Luis Lemon M.D. [Primary Care Provider] - Diet: Carb Consistent or DM2 and Heart Healthy Ambulatory Orders: Prothrombin Time INR (Timed) Timeframe: 2 Days Location: Determined by Patient Ordered By: Sara Vargas Attending Provider Instructions: 1. Pt will require wound vac changes M/W/F. May have PO dilaudid 30-60 min prior to wound vac change. 2. L ankle wound will require DAILY dressing changes; cleanse with saline, aqu acel AG, 4x4's, and paper tape. 3. ALL wounds are to remain dry. 4. Pt is WBAT BLE. 5. Pt will need recheck INR in 2 days to see if warfarin can be restarted. His INR today(08/01) was 4.7, so warfarin is being held; will need to continue hold until INR <3. Pt will need close attention to his INR. 6. Pt will need follow up appt with Dr Alanis or Sara Crowley PA-C NEXT WEEK for staple removal. Call [phone] for appt. 7. Pt will need consultation with [facility] Anticoagulation clinic in 1-2 weeks for chronic warfarin management. 8. Start oral antibiotics (bactrim and cefdinir) the day AFTER pt's last dose of Vancomycin. Pending Studies at Discharge: No Stand-Alone Forms: My [facility] Skilled Items Patient informed of condition?: Yes DNR: No Discharge Level of Care: Skilled Communicable Disease: Yes (MRSA infection L ankle wound) Discharge Prognosis: Improving Lines: US Guided Peripheral IV Urinary Catheter: No Medications and DC Order Prescriptions: New ferrous sulfate 325 mg (65 mg iron) Tablet,Delayed Release (Dr/Ec) 325 mg PO BIDM Qty: 60 RF: 0 hydromorphone 2 mg tablet See Rx Instructions .ROUTE .COMPLEX PRN (Reason: pain) Qty: 10 RF: 0 docusate sodium 100 mg Capsule 100 mg PO BID Qty: 60 RF: 0 vancomycin in 0.9 % sodium chl 1.75 gram/500 mL solution 1.75 gm IV Q12H Qty: 3000 RF: 0 sulfamethoxazole-trimethoprim [Bactrim DS] 800-160 mg tablet 1 tab PO BID 14 Days Qty: 28 RF: 0 cefdinir 300 mg capsule 300 mg PO BID 14 Days Qty: 28 RF: 0 warfarin 2.5 mg tablet 2.5 mg PO DAILY Qty: 30 RF: 0 Continued lisinopril 40 mg Tablet 40 mg PO QAM RF: 0 cilostazol 100 mg Tablet 100 mg PO BID RF: 0 gabapentin [Neurontin] 800 mg Tablet 800 mg PO BID RF: 0 Trulicity 0.75 mg/0.5 mL Pen Injector 0.75 mg SUBCUT WK RF: 0 Toudeshawn SoloStar U-300 Insulin 300 unit/mL (1.5 mL) Insulin Pen 15 unit SUBCUT QPM RF: 0 aspirin 325 mg Tablet 325 mg PO QAM RF: 0 metformin 1,000 mg Tablet 1,000 mg PO BID RF: 0 albuterol sulfate 90 mcg/actuation Hfa Aerosol Inhaler 2 puff INHALATION QID PRN (Reason: Shortness Of Breath) RF: 0 Jardiance 10 mg Tablet 10 mg PO QAM RF: 0 Combivent Respimat 20-100 mcg/actuation Mist 2 puff inhalation QID RF: 0 Chantix Continuing Month Box 1 mg tablet 1 mg PO DAILY RF: 0 hydrocodone-acetaminophen 10-325 mg Tablet 1 tab PO QID PRN (Reason: Pain) Qty: 60 RF: 0 Discontinued Santyl 250 unit/gram ointment 250 unit topical DAILY RF: 0 Discharge Orders: Discharge Order (Routine); Ordered 08/01/19 Ordered By: Sara Crowley Admission Data Admit Date/Time: 07/12/19 15:34 Attending Provider: Denis Alanis Admit Provider: Denis Alanis Primary Care Provider: Luis Lemon Other Providers: Benny Mejia ; Lowell Lennon ; Bashir Bolanos ; Antony Lockwood ; Jatin Meza ; Kathy Potter ; Rosa Fischer ; Julio Mata ; Amanda Motta ; Jc Quiroz ; Scar Barron ; John Tello ; Jass Leblanc ; Calderon Domingo ; Torey Yni ; Claudette Mariscal ; Denis Alanis ; Nicola Garcia ; Gerardo Juarez ; Renee Schaeffer ; Dino Pritchard ; Kang Vazquez ; John Vincent ; Elena Alvarado ; Scar Warren ; Fatuma Michele ; Berenice Shaw ; Rose Bruner ; Angelika De León ; Jass Luna I ; Gayatri Goncalves ; Kayleen Gilbert ; Dianna Smith ; Shiraz Oneil ; Michele Azul ; Lula Vale Other Interventions: Discharge Summary Assessment (RN) Last Done: 08/01/19 14:45 DC Date/Time DO NOT enter until pt leaves facility: 10/22/19 15:24
== END 2019-08-01 15:24 | DRG 252 ==
LOC: ED 13:48 → 2S 15:34 → SUATTDRO 15:34 → 2S 18:15 → 1E 07-14 14:28 → 2E 07-16 13:20 → 1E 07-21 18:26 → 2S 07-22 13:15
PROC: CLB.AEU (2019-07-21 12:40)

== ENCOUNTER 2019-09-15 09:37 | Inpatient (IN) ==
--- NOTE | 2019-09-14 14:09 | Anesthesiology Consultation ---
Date of Service September 14, 2019 Assessment & Plan (1) Encounter for pre-operative examination: - S/P LEFT LOWER EXTREMITY ANGIOGRAM, REVISION OF LEFT AXILLARY TO RIGHT FEMORAL BYPASS WITH INTERPOSITION OF BOVINE GRAFT: 07/21/19: Grade view 3, MAC#3, ETT 8 at [facility] - Check BSG, CBC, coags AM DOS - Case reviewed with Dr. Sanderson: patient acceptable risk to proceed with surgery pending evaluation of clinical status/vitals AM DOS. Chart Review Chart Review: Patient NOT seen in Pre Admission Testing History Surgery Operation Date: 09/15/19 11:40 Proposed Procedures p Left Debridement/Revision Axillary-Bifemoral Bypass Graft - Denis Alanis MD Height/Weight Height: 5 ft 11 in Weight: 95.5 kg Allergies Allergy/AdvReac Type Severity Reaction Status Date / Time Penicillins Allergy Severe THROAT Verified 09/15/19 10:13 SWELLS AND HIVES Medications Home Medications Medication Instructions Recorded Confirmed Last Taken Combivent Respimat 2 puff INHALATION QID 05/01/19 09/15/19 09/15/19 07:30 Jardiance 10 mg PO QAM 05/01/19 09/15/19 09/15/19 07:30 Toujeo SoloStar U-300 Insulin 15 unit SUBCUT QPM 05/01/19 09/15/19 09/14/19 22:00 Trulicity 0.75 mg SUBCUT WK 05/01/19 09/15/19 09/09/19 14:00 albuterol sulfate 2 puff INHALATION QID PRN 05/01/19 09/15/19 09/15/19 07:30 aspirin 325 mg PO QAM 05/01/19 09/15/19 09/14/19 07:30 cilostazol 100 mg PO BID 05/01/19 09/15/19 09/14/19 18:30 gabapentin [Neurontin] 800 mg PO BID 05/01/19 09/15/19 09/15/19 07:30 lisinopril 40 mg PO QAM 05/01/19 09/15/19 09/15/19 07:30 metformin 1,000 mg PO BID 05/01/19 09/15/19 09/14/19 07:30 docusate sodium 100 mg PO BID #60 cap 08/01/19 09/15/19 2 Days Ago ~09/13/19 ferrous sulfate 325 mg PO BIDM #60 tab 08/01/19 09/15/19 09/15/19 07:30 hydrocodone-acetaminophen 1 tab PO QID PRN #60 tab 08/01/19 09/15/19 09/15/19 07:30 Anibiotic 1 tab PO BID 09/14/19 09/15/19 09/15/19 07:30 warfarin 2.5 mg PO UD 09/14/19 09/15/19 09/14/19 18:30 Active Medications Generic Name Dose Route Start Last Admin Trade Name Freq PRN Reason Stop Dose Admin Sodium Chloride 1,000 mls @ 50 mls/hr 09/15/19 06:00 09/15/19 10:39 Nss 1000ml IV 09/16/19 01:59 50 mls/hr .Q20H RAFA Administration Lactated Ringer's 1,000 mls @ 999 mls/hr 09/15/19 12:00 09/15/19 12:05 Lr IV 10/15/19 11:59 999 mls/hr .Q1H1M RAFA Administration Past Medical History Medical History Arthritis Chronic back pain Chronic obstructive pulmonary disease Diabetes mellitus, type 2 Diabetic neuropathy, type II diabetes mellitus Diverticulitis (Resolved) History of transfusion Hypertension PVD (peripheral vascular disease) Sleep apnea CPAP HS SOB (shortness of breath) on exertion 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 PER PT LEFT LOWER EXTREMITY ANGIOGRAM, REVISION OF LEFT AXILLARY TO RIGHT FEMORAL BYPASS WITH INTERPOSITION OF BOVINE GRAFT: 07/21/19: Grade view 3, MAC#3, ETT 8 at [facility] History of bowel resection WITH COLOSTOMY/REVERSAL LATER History of right hip replacement S/P femoral-popliteal bypass surgery X 3-LEFT LEG (WOUND DEBRIDEMENT LEFT FOOT) Social History Smoking Status: Former smoker tobacco type: smokeless tobacco Smoking cigarettes per day: 16 Hx Alcohol Use: No Hx Substance Use: Yes substance use type: marijuana Last Used Substance: Unknown Physical Exam Vital Signs Last Vital Signs Temp 36.7 C 09/15/19 10:33 Pulse 83 09/15/19 12:05 Resp 16 09/15/19 12:05 BP 104/51 L 09/15/19 12:05 Pulse Ox 96 09/15/19 12:05 Testing Laboratory Results 09/15/19 10:27 09/15/19 10:27 PT 14.6 Seconds (9.0-12.0) H 09/15/19 10:27 INR 1.5 (0.9-1.1) H 09/15/19 10:27 APTT 31.1 Seconds (21.0-31.0) H 09/15/19 10:27 Blood Type O Positive 09/15/19 10:27 Antibody Screen NEGATIVE 09/15/19 10:27 09/15/19 10:02 POC Glucose 163 H 07/31/19 WBC 6.99 H/H 8.6/27.5 (discussed with Dr. Sanderson/will order repeat for AM DOS, patient with chronic anemia but appears below baseline on most recent 07/2019 labs) PLATELETS 07/29/19 SODIUM 142 POTASSIUM 3.7 CHLORIDE 109 CO2 26 BUN 13 CREATININE 0.59 GLUCOSE 144 TYPE AND SCREEN O+ Ab- (+ transfusion) Electrocardiogram Date: 07/14/19 ST at 121bpm. RAD. Low voltage QRS. Cannot rule out anteroseptal infarct (cited on or before 06/06/19)/had ECHO 06/01/19* Chest X-Ray Date: 07/14/19 Interval development of linear right perihilar and upper lung zone opacities, likely atelectatic. No evidence of lobar consolidation Echocardiogram Date: 06/01/19 EF 65%. No RWMA. Moderate RVE. Mild KELLEY. Dilated ascending aorta (3.9cm). Mild cLVH. Borderline hyperdynamic LV systolic function. Trace to mild TR. Mild MR. Anterior fat pad noted.
[~2019-09-15 09:37] MED LIST: CLINDAMYCIN 600 MG/54 ML BAG IV SCH; SODIUM CHLORIDE 0.9% 1000ML IV SCH
[2019-09-15 10:39] LABS: Hematocrit (blood only) 42.3 % (42-52); Hemoglobin 13.5 g/dL (14.0-18.0); Mean Corpuscular Hemoglobin 31.6 pg (25-34); Mean Corpuscular Volume 99.1 fL (80-100); Mean Platelet Volume 8.7 fL (7.4-10.4); Platelet Count 171 K/uL (130-400); RDW Coefficient of Variation 16.4 % (11.5-14.5); RDW Standard Deviation 59.3 fL (36.4-46.3); Red Blood Count 4.27 M/uL (4.7-6.1); White Blood Count 6.55 K/uL (4.8-10.8)
[2019-09-15 10:50] LABS: INR 1.5 (0.9-1.1); Mean Corpuscular Hgb Conc 31.9 g/dL (32-36); Partial Thromboplastin Ratio 1.1; Partial Thromboplastin Time 31.1 Seconds (21.0-31.0); Prothrombin Time 14.6 Seconds (9.0-12.0)
[2019-09-15 10:56] LABS: BUN Creatinine Ratio 24.2 (10-20); Calcium 8.7 mg/dl (8.5-10.1); Creatinine Clr Calc Pharmacy 98.9 ml/min; Est GFR (African American) 100.6; Est GFR (Non-African American) 86.8; Potassium 4.5 mmol/L (3.5-5.1)
--- NOTE | 2019-09-15 11:29 | History & Physical Report ---
Date of Service September 15, 2019 Assessment & Plan (1) Wound dehiscence: Patient is to undergo revision of his bypass and debridement of his wound. I have discussed the risks options and benefits of the procedure with the patient. The patient understands the risks options and benefits and agrees to the procedure. History of Present Illness Chief Complaint: Open wound of abdomen, possible exposed graft Primary Care Provider: Luis Lemon Patient is a 59 yo who recently underwent a left femoral to profunda bypass. He has had an ax bifem in the past. He came to the ED with bleeding from the left groin and pain. He underwent revision of his bypass. He now presents with an open incision of his abdomen with possible exposed graft. Allergy/AdvReac Type Severity Reaction Status Date / Time Penicillins Allergy Severe THROAT Verified 07/12/19 14:30 SWELLS AND HIVES Home Medications Medication Instructions Recorded Confirmed Type Combivent Respimat 2 puff INHALATION QID 05/01/19 07/12/19 History Jardiance 10 mg PO QAM 05/01/19 07/12/19 History Toujeo SoloStar U-300 Insulin 15 unit SUBCUT QPM 05/01/19 07/12/19 History Trulicity 0.75 mg SUBCUT WK 05/01/19 07/12/19 History albuterol sulfate 2 puff INHALATION QID PRN 05/01/19 07/12/19 History aspirin 325 mg PO QAM 05/01/19 07/12/19 History cilostazol 100 mg PO BID 05/01/19 07/12/19 History gabapentin [Neurontin] 800 mg PO BID 05/01/19 07/12/19 History lisinopril 40 mg PO QAM 05/01/19 07/12/19 History metformin 1,000 mg PO BID 05/01/19 07/12/19 History hydrocodone-acetaminophen 1 tab PO QID PRN 05/30/19 07/12/19 History collagenase clostridium histo. 250 unit TOPICAL DAILY 07/12/19 07/12/19 History [Santyl] varenicline [Chantix Continuing 1 mg PO DAILY 07/12/19 07/12/19 History Month Box] Past Med/Surg History Medical History Diverticulitis (Resolved) Arthritis Chronic back pain Chronic obstructive pulmonary disease Diabetes mellitus, type 2 Diabetic neuropathy, type II diabetes mellitus Hypertension SOB (shortness of breath) on exertion Sleep apnea CPAP HS 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 PER PT History of bowel resection WITH COLOSTOMY/REVERSAL LATER History of right hip replacement S/P femoral-popliteal bypass surgery X 2-LEFT LEG Family History Mother Family history of diabetes mellitus Uncle Family history of diabetes mellitus Social History Preferred Language: Scottish Communication Ability: Effective Clinical Data Management Director Required: No Beliefs That Will Affect Care: None Current Living Situation: Spouse Current Living Situation Comment: only Other Information That Helps Us Care for You: No Feels Safe at Home: Yes Safety Concerns: Feels Safe At This Time Smoking Status: Former smoker Tobacco Type: smokeless tobacco ; Cigarettes Per Day: 16 ; Do You Dip or Chew Tobacco: Yes ; Second Hand Exposure: No ; Tobacco Cessation Education Requested by Patient: No Hx Alcohol Use: No Hx Substance Use: Yes substance use type: marijuana Last Used Substance: Unknown Review of Systems All systems reviewed & are unremarkable except as noted in HPI & below Physical Exam Constitutional: WD/WN, vitals as above Neck: trachea midline Respiratory: normal respiratory effort, lungs clear to auscultation Cardiovascular: Rate/Rhythm: regular rate and regular rhythm Gastrointestinal (Abdomen): Inspection/Auscultation: abdomen with necrotic open wound left side; abdomen not distended Percussion/Palpation: abdomen soft Skin: + incision (open area mid portion of left groin wound. no bleeding seen at this time ) dressing did have old dark blood on it. Neurologic: CN's II-XI intact bilaterally Motor/Sensory: normal movement and no sensory deficit Psychiatric: Orientation: alert and oriented x 3 Allergies Allergy/AdvReac Type Severity Reaction Status Date / Time Penicillins Allergy Severe THROAT Verified 09/15/19 10:13 SWELLS AND HIVES Home Medications Home Medications Medication Instructions Recorded Confirmed Type Combivent Respimat 2 puff INHALATION QID 05/01/19 09/15/19 History Jardiance 10 mg PO QAM 05/01/19 09/15/19 History Reynaldo Perkins U-300 Insulin 15 unit SUBCUT QPM 05/01/19 09/15/19 History Trulicity 0.75 mg SUBCUT WK 05/01/19 09/15/19 History albuterol sulfate 2 puff INHALATION QID PRN 05/01/19 09/15/19 History aspirin 325 mg PO QAM 05/01/19 09/15/19 History cilostazol 100 mg PO BID 05/01/19 09/15/19 History gabapentin [Neurontin] 800 mg PO BID 05/01/19 09/15/19 History lisinopril 40 mg PO QAM 05/01/19 09/15/19 History metformin 1,000 mg PO BID 05/01/19 09/15/19 History docusate sodium 100 mg PO BID #60 cap 08/01/19 09/15/19 Rx ferrous sulfate 325 mg PO BIDM #60 tab 08/01/19 09/15/19 Rx hydrocodone-acetaminophen 1 tab PO QID PRN #60 tab 08/01/19 09/15/19 Rx Anibiotic 1 tab PO BID 09/14/19 09/15/19 History warfarin 2.5 mg PO UD 09/14/19 09/15/19 History Past Med/Surg History Medical History Arthritis Chronic back pain Chronic obstructive pulmonary disease Diabetes mellitus, type 2 Diabetic neuropathy, type II diabetes mellitus Diverticulitis (Resolved) History of transfusion Hypertension PVD (peripheral vascular disease) Sleep apnea CPAP HS SOB (shortness of breath) on exertion 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 PER PT LEFT LOWER EXTREMITY ANGIOGRAM, REVISION OF LEFT AXILLARY TO RIGHT FEMORAL BYPASS WITH INTERPOSITION OF BOVINE GRAFT: 07/21/19: Grade view 3, MAC#3, ETT 8 at [facility] History of bowel resection WITH COLOSTOMY/REVERSAL LATER History of right hip replacement S/P femoral-popliteal bypass surgery X 3-LEFT LEG (WOUND DEBRIDEMENT LEFT FOOT) Family History Mother Family history of diabetes mellitus Uncle Family history of diabetes mellitus Social History Preferred Language: Scottish Communication Ability: Effective Clinical Data Management Director Required: No Beliefs That Will Affect Care: None Current Living Situation: Spouse Current Living Situation Comment: only Feels Safe at Home: Yes Safety Concerns: Feels Safe At This Time Smoking Status: Former smoker Tobacco Type: smokeless tobacco ; Cigarettes Per Day: 16 ; Do You Dip or Chew Tobacco: Yes ; Second Hand Exposure: Yes ( SMOKES) ; Tobacco Cessation Education Requested by Patient: No Hx Alcohol Use: No Hx Substance Use: Yes substance use type: marijuana Last Used Substance: Unknown Review of Systems All systems reviewed & are unremarkable except as noted in HPI & below Results & Data Vital Signs (Past 12 Hours) Vital Signs Temp Pulse Resp BP Pulse Ox 09/15/19 11:21 87 18 77/48 L 94 09/15/19 11:15 86 18 77/48 L 94 09/15/19 10:33 36.7 C 85 18 89/57 L 92
[2019-09-15] MEDS ORDERED: KETAMINE HCL INJ 50 MG/ML 10 ML VIAL ONE (11:42)
[2019-09-15] MEDS ORDERED: MIDAZOLAM HCL 1 MG/ML 2ML VIAL ONE (11:42)
[2019-09-15] MEDS ORDERED: fentaNYL citrate 100 MCG/2 ML VIAL ONE ×3 (11:42→17:47)
[2019-09-15] MEDS ORDERED: LACTATED RINGER'S 1,000 ML IV SCH (12:00)
[2019-09-15] MEDS ORDERED: GELATIN SPONGE SZ 100 ONE (12:11)
[2019-09-15] MEDS ORDERED: HEPARIN (PORCINE) 1000 UNIT/ML 10 ML (CATH LAB USE ONLY) ONE (12:11)
[2019-09-15] MEDS ORDERED: THROMBIN FOR SOLN 20000 UNIT KIT ONE (12:12)
[2019-09-15] MEDS ORDERED: ALBUMIN HUMAN 5% 12.5 GM/250 ML VIAL IV ONE ×2 (12:13→18:28)
[2019-09-15] MEDS ORDERED: ePHEDrine sulfate 50 MG/ML AMP IV PRN ×2 (12:29→17:50)
[2019-09-15] MEDS ORDERED: fentaNYL citrate 100 MCG/2 ML VIAL IV PRN ×2 (12:29→17:50)
[2019-09-15] MEDS ORDERED: ATROPINE SULFATE 0.1 MG/ML 10ML SYR IV PRN ×2 (12:29→17:51)
[2019-09-15] MEDS ORDERED: ONDANSETRON INJ 2 MG/ML 2 ML VIAL IV PRN ×3 (12:29→17:51)
[2019-09-15] MEDS ORDERED: BACITRACIN INJ 50,000 UNIT VIAL ONE (13:21)
[2019-09-15] MEDS ORDERED: DEXAMETHASONE SOD INJ 4 MG/ML VIAL ONE (13:26)
[2019-09-15] MEDS ORDERED: LIDOCAINE HCL 2% 2 ML VIAL/AMP(20MG/ML) INFIL ONE (13:26)
[2019-09-15] MEDS ORDERED: PROPOFOL IV EMULSION 10 MG/ML 20 ML VIAL IV ONE (13:26)
[2019-09-15] MEDS ORDERED: ONDANSETRON INJ 2 MG/ML 2 ML VIAL ONE (13:26)
[2019-09-15] MEDS ORDERED: ROCURONIUM BROMIDE 10 MG/ML 5 ML VIAL ONE (13:26)
[2019-09-15] MEDS ORDERED: HEPARIN SOD (PORCINE) 1000 UNIT/ML 10 ML VIAL ONE (15:16)
[2019-09-15] MEDS ORDERED: SODIUM CHLORIDE 0.9% 250 ML IV PRN (16:22)
[2019-09-15] MEDS ORDERED: SUGAMMADEX SODIUM 200 MG/2 ML VIAL IV ONE (16:56)
--- NOTE | 2019-09-15 17:20 | Post Operative Brief Note ---
Immediate Post Op Note v1 Date of Surgery September 15, 2019 Pre & Post Diagnosis Operation Date: 09/15/19 11:40 Pre-Op Diagnosis: Left Abdominal Wound Infection Post-Op Diagnosis: Left Abdominal Wound Infection I identified the patient and participated in the time-out.: Yes Procedure Operation Date: 09/15/19 11:40 Actual Procedures p Debridement of Abdominal Wound and Revision Axillary-Bifemoral Bypass Graft(Not Applicable) - Denis Alanis MD Surgeon Denis Alanis MD Learning Designer MD Ana Maria NunezMinarchick,PAC Estimated Blood Loss 300 Findings Consistent with Post-Op Diagnosis Anesthesia Type General Complications none Disposition Accompanied Patient To Recovery: No Disposition: Recovery Room
[2019-09-15] MEDS ORDERED: ALBUTEROL HFA 8 GM INHALER INH PRN (17:26)
--- NOTE | 2019-09-15 17:37 | Operative Report ---
Post Operative Report Pre & Post Diagnosis Operation Date: 09/15/19 11:40 Pre-Op Diagnosis: Left Abdominal Wound Infection Post-Op Diagnosis: Left Abdominal Wound Infection I identified the patient and participated in the time-out.: Yes Procedure Operation Date: 09/15/19 11:40 Actual Procedures p Left Debridement and Revision Axillary-Bifemoral Bypass Graft(Not Applicable) - Denis Alanis MD Surgeon Denis Alanis MD Reliability Engineer MD Ana Maria NunezMinarchfarhana,PAC Estimated Blood Loss 300 Findings See Below Thrombosis of right graft limb. Hematoma in subcutaneous tissue of abdomen from left graft limb. Specimens None Anesthesia Type General Complications none Disposition Accompanied Patient To Recovery: No Disposition: Surgical ICU Indications Patient is a 59 yo who recently underwent a left femoral to profunda bypass. He has had an ax bifem in the past. He came to the ED with bleeding from the left groin and pain. He underwent revision of his bypass. He now presents with an open incision of his abdomen with possible exposed graft. Revision of the axillobifemoral graft with excision of old graft and evacuation of hematoma were discussed with the patient. The risks of the procedure were explained to the patient and he wished to proceed. Surgical consent was obtained and the surgical site was marked. Description of Procedure The patient was taken to the operating suite and placed in the supine position. The patient's identity and surgical site were verified. A time-out was performed. The patient was prepped and draped in the usual sterile fashion from the clavicles to the bilateral mid-thigh. An extra sheet of ioban was placed over the left anterior abdominal wound. An transverse incision was made on the left chest wall along the anterior axillary line over the bypass graft. The bypass graft was dissected out using sharp and blunt dissection. The graft was dissected out circumferentially. A good pulse was noted over the graft. On the back table we then used two bovine carotid artery grafts. At the proximal end we joined them in an end-to-side fashion using 5-0 prolene, creating a graft with a short body and two long limbs. The patient was heparinized and we then applied clamps to the proximal and distal aspects of the previous [id number] graft where it was exposed along the chest wall. An 11 blade was used to transect the previous graft. The body of the new bovine carotid artery graft was sewn to the proximal aspect of the previous graft using 5-0 prolene. Remaining within the chest wall incision, the distal aspect of the previous graft was freed up as it traveled along the chest wall. We then dissected out the right and left femoral graft limbs. On the left, we made a transverse incision along the inferior abdominal wall over the left graft limb. Again we obtained circumferential control. A good pulse was noted in the graft here. On the right, we made a transverse incision dissected over the right inferior abdominal wall over the area of the graft. The graft was not pulsatile here. Circumferential control was obtained. Along the left lateral abdominal wall, taking care to remain separate from the area of the wound and hematoma, we created a counter incision in order to tunnel the left graft limb. Using an aortic clamp the left graft limb was passed through this counter incision and then down to our incision in the inferior left abdominal wall. We applied clamps proximally and distally to the previous PTFE graft in this area and using an 11-blade transected the old PTFE graft. Using 5- 0 prolene we created an end-to-end anastomosis joining the distal aspect of the old PTFE graft to the left limb of the new bovine carotid artery graft. Prior to completing the anastomosis the graft was flushed proximally and distally, and good forward and back-bleeding were noted. We then turned our attention to the right graft limb. We made two counter incisions along the abdominal wall in order to tunnel the graft, taking care again to avoid the area of the open wound and to tunnel the new graft around the abdominal wall hematoma. Using an aortic clamp, the right limb of the new graft was passed through these counter incisions and down to our incision in the right inferior abdominal wall where the right graft limb was dissected out. The old right graft limb, which was also bovine carotid, was clamped and using an 11 blade was used to transect the old graft limb. No backbleeding from the distal end of the graft was noted, so we performed an embolectomy using 4-0 and 3-0 etelvina catheters with return of clot and subsequent good backbleeding from the distal aspect of the right graft limb. We then used 5-0 prolene to create an end-to-end anastomosis between our new right bovine carotid artery limb and the distal aspect of the old right graft limb. Prior to completing the anastomosis, the graft was flushed proximally and distally with good forward and back- bleeding noted. We turned our attention back to the old left graft limb. This had previously been freed up from its proximal aspect in the chest wall incision. We freed up the old left graft limb from our inferior abdominal wall incision as far as we could reach using both sharp and blunt dissection. The graft was very well incorporated. We had noted some pooling of blood along the chest wall incision where our new proximal anastomosis was, so we turned our attention to this area. There was some bleeding along the suture line of the end-to-side anastomosis of the two new grafts, so 6-[address] was used to place repair sutures and the suture line was tightened. There was also some diffuse bleeding from the surrounding tissues including the scar tissue that had formed around the graft, so we used cautery to control this bleeding. Hemostasis was obtained with the aid of thrombin- soaked gel foam, surgicel, and gentle manual pressure along this and all other incisions. All incisions were closed with 2-0 vicryl, 3-0 vicryl, and freedom for the skin. A new sheet of ioban was placed over the operative field to exclude these new incisions overlying the new graft. An incision was made over the open wound in the left mid abdominal wall. Necrotic skin and subcutaneous tissue were excised from the inferior aspect of the wound. Significant amounts of hematoma were evacuated from the wound. This tunneled inferiorly and medially and made an approximately 8cm x 8cm x 8cm cavity. This was copiously irrigated. From this incision we were able to free up the old graft. We were able to pull out the distal aspect of the graft. However, the proximal aspect was very well- incorporated. We freed it up as far as we could reach from our incision and excised the portion we were able to reach. Unfortunately this did leave a small bit of graft behind however it was well-incorporated. The wound was packed with saline-soaked gauze and dressed with sterile abdominal pad dressing and tape. The ioban was taken down and the remainder of the wounds were also covered with sterile abdominal pad dressings which were secured with tape. The patient tolerated the procedure well and was taken to the recovery room in satisfactory condition. At the conclusion of the case all instrument, sponge, and needle counts were correct. Dr. Alanis was present and scrubbed for the entire procedure. I attest to the content of the Intraoperative Record and any orders documented therein. Any exceptions are noted below.
--- NOTE | 2019-09-15 17:55 | Critical Care Consultation ---
Date of Consultation September 15, 2019 Assessment & Plan (1) Admitted to intensive care unit: Reason Critically Ill: Kennedy Alegria is a 59-year-old male with a past medical history of diabetes, COPD, hypertension, JAMES on CPAP, and peripheral vascular disease who was admitted to [facility] for revision and debridement of his axillarybifemoral bypass graft which was placed at an outside hospital. He had a left femoral to profunda bypass performed 06/14/[address] Alanis. He presented to surgical team with an open incision of his abdomen and possible exposure of the graft. He is transferred to the ICU for postoperative care following graft revision. Neuro - [facility] ICU: Positive Analgesia: Fentanyl push as needed Sedation: None Cardiac - Hypertension Continue lisinopril 40 mg every morning EKG 07/14/2019: Right axis deviation, sinus tach. Nonspecific ST abnormalities. Echo 06/01/2019: EF 65%, mild concentric LVH, moderate right ventricular enlargement, a sending aorta dilatation to 3.9 cm, sclerotic aortic valve, normal IVC, no thrombus. Trace to mild MR, trace to mild TR, trace pulmonic insufficiency. Normal pulmonary artery pressures. Respiratory - COPD Continue Combivent 2 puffs 4 times daily Albuterol every 4 hours as needed On 5 L O2 postsurgically. Wean oxygen to SPO2 greater than 88% GI - Type 2 diabetes type II diabetic diet once able to pass bedside swallow RENAL/LYTES - Preop sodium, potassium normal. Preop creatinine 0.96 at baseline. BMP daily Replace lecture lites per protocol - No acute concerns ENDO - Type 2 diabetes mellitus Hold home anti-glycemic's (Toujeo 15 units every afternoon, Trulicity 0.75 mg weekly, Jardiance 10 mg p.o. every morning) ICU hyperglycemia protocol HEME - Concern was expressed for a slowly downtrending hemoglobin prior to admission. Hemoglobin day of admission 13.5, last hemoglobin ~8 pts, patient thought to be hemoconcentrated on arrival. Received fluid resuscitation pre-/Intra-Op. 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 Type and screen on file ID - Graft infection Wound cultures 09/15/2019 sent by primary team. No organisms on Gram stain, culture pending Prior wound cultures from 07/2019 admission grew coag negative staph and MRSA. He had a group B strep bacteremia on 07/14/2019. On last discharge he was placed on 28 days of Cefdinir and Bactrim. Received clindamycin perioperatively. Continue clindamycin 600 mg IV every 8 hours Monitor fever curve. INTEGUMENTARY - See above. LINES/IV ACCESS - PIVs intact. DVT PROPHYLAXIS - Held in the postoperative setting. Thank you for allowing us to be part of this patient's care. Please refer to Dr. Mejia's documentation for any further recommendations. (2) Infected prosthetic vascular graft: (3) JAMES on CPAP: (4) Hypertension: (5) COPD (chronic obstructive pulmonary disease): (6) Diabetes: Supervising Physician Co-Signing Physician Notes Dr. Yao was resident physician during care of patient. I separately evaluated patient for perez portions of the history and the exam. I was present during the critical portion of medical decision making, and I discussed the case with the resident. I generally agree with the findings and plan. Blood precautions after surgical modification bypass grafts due to localized infection. History of Present Illness Reason for Consultation: Postoperative care Requesting Physician: Denis Alanis MD Attending Physician: Denis Alanis MD History of Present Illness Kennedy Alegria is a 59-year-old male with a past medical history of diabetes, COPD, hypertension, JAMES on CPAP, and peripheral vascular disease who was admitted to [facility] for revision and debridement of his axillarybifemoral bypass graft which was placed at an outside hospital. He had a left femoral to profunda bypass performed 06/14/[address] Alanis.He presented to surgical team with an open incision of his abdomen and possible exposure of the graft. On arrival to unit patient is extremely somnolent, maintains attention and answers questions briefly and then falls back asleep. History limited by mental status/somnolence. History below collected from chart review: PMHx: Arthritis, COPD, type 2 diabetes mellitus with neuropathy, diverticulitis, hypertension, PVD, JAMES on CPAP. Home medications: Albuterol as needed, aspirin 325 daily, Cillo stays all 100 mg p.o. twice daily, Combivent, iron, gabapentin 800 mg p.o. twice daily, empagliflozin, lisinopril 40 mg daily, metformin 1 g p.o. twice daily Cecilleo 15 units every afternoon, dulaglutide 0.75 mg weekly, warfarin 2.5 mg p.o. daily. Surgical history: Bowel resection with colostomy status post reversal Femoropopliteal bypass surgery, left Revision of left axillary to right femoral bypass with interposition of bovine graft 07/21/2019 Social history: Lives at home with his spouse Denies alcohol use Former smoker, approximately 1 pack/day Intermittent marijuana use. Denies other substance use. Allergies: Penicillins. Hives and throat swelling. Allergies Allergy/AdvReac Type Severity Reaction Status Date / Time Penicillins Allergy Severe THROAT Verified 09/15/19 10:13 SWELLS AND HIVES Home Medications Home Medications Medication Instructions Recorded Confirmed Type Combivent Respimat 2 puff INHALATION QID 05/01/19 09/15/19 History Jardiance 10 mg PO QAM 05/01/19 09/15/19 History Toujeo SoloStar U-300 Insulin 15 unit SUBCUT QPM 05/01/19 09/15/19 History Trulicity 0.75 mg SUBCUT WK 05/01/19 09/15/19 History albuterol sulfate 2 puff INHALATION QID PRN 05/01/19 09/15/19 History aspirin 325 mg PO QAM 05/01/19 09/15/19 History cilostazol 100 mg PO BID 05/01/19 09/15/19 History gabapentin [Neurontin] 800 mg PO BID 05/01/19 09/15/19 History lisinopril 40 mg PO QAM 05/01/19 09/15/19 History metformin 1,000 mg PO BID 05/01/19 09/15/19 History docusate sodium 100 mg PO BID #60 cap 08/01/19 09/15/19 Rx ferrous sulfate 325 mg PO BIDM #60 tab 08/01/19 09/15/19 Rx hydrocodone-acetaminophen 1 tab PO QID PRN #60 tab 08/01/19 09/15/19 Rx Anibiotic 1 tab PO BID 09/14/19 09/15/19 History warfarin 2.5 mg PO UD 09/14/19 09/15/19 History Patient History Medical History Arthritis Chronic back pain Chronic obstructive pulmonary disease Diabetes mellitus, type 2 Diabetic neuropathy, type II diabetes mellitus Diverticulitis (Resolved) History of transfusion Hypertension PVD (peripheral vascular disease) Sleep apnea CPAP HS SOB (shortness of breath) on exertion 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 PER PT LEFT LOWER EXTREMITY ANGIOGRAM, REVISION OF LEFT AXILLARY TO RIGHT FEMORAL BYPASS WITH INTERPOSITION OF BOVINE GRAFT: 07/21/19: Grade view 3, MAC#3, ETT 8 at [facility] History of bowel resection WITH COLOSTOMY/REVERSAL LATER History of right hip replacement S/P femoral-popliteal bypass surgery X 3-LEFT LEG (WOUND DEBRIDEMENT LEFT FOOT) Family History Mother Family history of diabetes mellitus Uncle Family history of diabetes mellitus Social History Preferred Language: Stateless Communication Ability: Effective Word Processing Specialist Required: No Beliefs That Will Affect Care: None marital status: Current Living Situation: Spouse Current Living Situation Comment: only Other Information That Helps Us Care for You: No Feels Safe at Home: Yes Safety Concerns: Feels Safe At This Time Smoking Status: Former smoker Tobacco Type: smokeless tobacco ; Cigarettes Per Day: 16 ; Do You Dip or Chew Tobacco: Yes ; Second Hand Exposure: Yes ( SMOKES) ; Tobacco Cessation Education Requested by Patient: No Hx Alcohol Use: No Hx Substance Use: Yes substance use type: marijuana Last Used Substance: Unknown Review of Systems Review of Systems: Unobtainable due to reduced consciousness Physical Exam Physical Exam: General: Somnolent. Arouses to physical stimulation and loud voice, before falling back asleep. Skin is warm and moist. HEENT: Atraumatic, normocephalic. Poor dentition, dental caries present. Pupils constricted, 2 mm but reactive to light and symmetrical. Pulm: CTAB A&P. -wheezes, -rales, -rhonchi. Symmetrical chest rise. No increase work of breathing. No respiratory distress. Cardiac: RRR, -mrg. Radial pulses intact and symmetrical. Abdominal: Bowel sounds present. Nonrigid. No rebound tenderness. 1 cm left lower inguinal ulceration, right inguinal ulceration. Multiple dressings present on abdominal surgical site, currently C/D/I. Dressing removal/change in the immediate postsurgical setting. Extremity: Left medial malleolar ulceration with mild erythema, central purulence. Dorsalis pedis pulse intact bilaterally to Doppler. Feet warm, moist. Neurologic: Limited by sedation. Patient withdraws to nailbed pinch at hallux bilaterally and thumb bilaterally. Results & Data Vital Signs (Past 12 Hours) Vital Signs Temp Pulse Resp BP BP Pulse Ox 09/15/19 12:05 83 16 104/51 L 96 09/15/19 11:55 80 15 102/55 L 98 09/15/19 11:48 18 99/56 L 98 09/15/19 11:43 99 H 20 91/47 L 99 09/15/19 11:33 83 16 84/49 L 95 09/15/19 11:21 87 18 77/48 L 94 09/15/19 11:18 76/44 L 09/15/19 11:15 86 18 78/47 L 94 09/15/19 10:33 36.7 C 85 18 89/57 L 92 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 use: with termite inspector use Diabetes mellitus type: type 2 Qualified Code(s): E11.42 - Type 2 diabetes mellitus with diabetic polyneuropathy; Z79.4 - skilled nursing (current) use of insulin (2) COPD (chronic obstructive pulmonary disease) COPD type: unspecified COPD Qualified Code(s): J44.9 - Chronic obstructive pulmonary disease, unspecified (3) Hypertension Hypertension type: essential hypertension Qualified Code(s): I10 - Essential (primary) hypertension
[2019-09-15 18:13] LABS: Basophils # (auto) 0.04 K/uL (0-0.2); Basophils % (auto) 0.4 %; Eosinophils # (auto) 0.01 K/uL (0-0.5); Eosinophils % (auto) 0.1 %; Hematocrit (blood only) 37.4 % (42-52); Hemoglobin 11.7 g/dL (14.0-18.0); Immature Granulocytes # (auto) 0.04 K/uL (0.00-0.02); Immature Granulocytes % (auto) 0.4 %; Lymphocytes # (auto) 0.52 K/uL (1.2-3.4); Lymphocytes % (auto) 5.7 %; Mean Corpuscular Hemoglobin 31.5 pg (25-34); Mean Corpuscular Hgb Conc 31.3 g/dL (32-36); Mean Corpuscular Volume 100.5 fL (80-100); Mean Platelet Volume 8.3 fL (7.4-10.4); Monocytes # (auto) 0.19 K/uL (0.11-0.59); Monocytes % (auto) 2.1 %; Neutrophils # (auto) 8.31 K/uL (1.4-6.5); Neutrophils % (auto) 91.3 %; Platelet Count 173 K/uL (130-400); RDW Coefficient of Variation 16.5 % (11.5-14.5); RDW Standard Deviation 60.9 fL (36.4-46.3); Red Blood Count 3.72 M/uL (4.7-6.1); White Blood Count 9.11 K/uL (4.8-10.8)
[2019-09-15 18:36] LABS: BUN Creatinine Ratio 21.5 (10-20); Est GFR (African American) 111.9; Est GFR (Non-African American) 96.5; Potassium 5.2 mmol/L (3.5-5.1)
--- NOTE | 2019-09-15 20:00 | Anesthesiology Progress Note ---
Date of Service September 15, 2019 Anesthesia Post Procedure Vital Signs Vital Signs: Temp Pulse Pulse Resp BP BP BP 09/15/19 18:50 36.9 C 99 H 19 104/68 110/48 L 09/15/19 18:40 36.9 C 103 H 16 89/52 L 83/55 L 09/15/19 18:30 36.9 C 107 H 17 87/59 L 90/57 L 09/15/19 18:20 36.6 C 106 H 18 88/55 L 09/15/19 18:10 36.6 C 117 H 20 82/63 L 09/15/19 18:00 36.6 C 121 H 19 115/91 09/15/19 17:50 36.6 C 119 H 16 136/72 09/15/19 17:41 36.6 C 104 H 20 131/83 09/15/19 12:05 83 16 104/51 L 09/15/19 11:55 80 15 102/55 L 09/15/19 11:48 18 99/56 L 09/15/19 11:43 99 H 20 91/47 L 09/15/19 11:33 83 16 84/49 L 09/15/19 11:21 87 18 77/48 L 09/15/19 11:18 76/44 L 09/15/19 11:15 86 18 78/47 L 09/15/19 10:33 36.7 C 85 18 89/57 L Pulse Ox 09/15/19 18:50 96 09/15/19 18:40 96 09/15/19 18:30 94 09/15/19 18:20 94 09/15/19 18:10 97 09/15/19 18:00 97 09/15/19 17:50 100 09/15/19 17:41 96 09/15/19 12:05 96 09/15/19 11:55 98 09/15/19 11:48 98 09/15/19 11:43 99 09/15/19 11:33 95 09/15/19 11:21 94 09/15/19 11:18 09/15/19 11:15 94 09/15/19 10:33 92 Pain Intensity Right Lower Abdomen: Pain Intensity: 3 Transfer of Care Handoff Completed per policy Notes Mental Status: alert / awake / arousable and participated in evaluation Patient Amnestic to Procedure: Yes Nausea / Vomiting: adequately controlled Pain: adequately controlled Airway Patency, RR, SpO2: stable & adequate BP & HR: stable & adequate Hydration State: stable & adequate Anesthetic Complications: no major complications apparent and Pt Satisfied with anesthetic care
[2019-09-15] MEDS: CLINDAMYCIN 600 MG in DEXTROSE 5% 50 ML IV SCH (21:02)
[2019-09-15] MEDS: DOCUSATE SODIUM 100 MG CAP PO SCH (21:04)
[2019-09-15] MEDS: IPRATROPIUM BROMIDE/ALBUTEROL respimat INH INH SCH (21:05)
[2019-09-15] MEDS: CILOSTAZOL 100 MG TAB PO SCH (21:06)
[2019-09-15] MEDS: GABAPENTIN 800 MG TAB PO SCH (21:06)
[2019-09-15] MEDS ORDERED: GLUCOSE 40% GEL 15 GM TUBE PO PRN (21:09)
[2019-09-15] MEDS ORDERED: CARBOHYDRATES FOR HYPOGLYCEMIA PO PRN (21:09)
[2019-09-15] MEDS ORDERED: GLUCAGON FOR INJ 1 MG VIAL SQ PRN (21:09)
[2019-09-15] MEDS ORDERED: ICU PROTOCOL FOR HYPERGLYCEMIA PRN (21:09)
[2019-09-15] MEDS ORDERED: GLUCOSE 10 TABS/TUBE PO PRN (21:09)
[2019-09-15] MEDS ORDERED: DEXTROSE 50% 50 ML SYRINGE IV PRN (21:09)
[2019-09-15] MEDS: MoRPHine SULFATE 4 MG/ML 1 ML CARP\\VIAL IV PRN (21:10)
[2019-09-16] MEDS: MoRPHine SULFATE 4 MG/ML 1 ML CARP\\VIAL IV PRN ×7 (00:10→20:38)
[2019-09-16] MEDS: INSULIN ASPART 100 UNITS/ML 3 ML PEN SC SCH ×5 (01:00→20:42)
[2019-09-16] MEDS: CLINDAMYCIN 600 MG in DEXTROSE 5% 50 ML IV SCH ×2 (04:30→12:15)
[2019-09-16 04:58] LABS: Basophils # (auto) 0.03 K/uL (0-0.2); Basophils % (auto) 0.4 %; Eosinophils # (auto) 0.01 K/uL (0-0.5); Eosinophils % (auto) 0.1 %; Hematocrit (blood only) 34.2 % (42-52); Hemoglobin 10.7 g/dL (14.0-18.0); Immature Granulocytes # (auto) 0.01 K/uL (0.00-0.02); Immature Granulocytes % (auto) 0.1 %; Lymphocytes # (auto) 1.47 K/uL (1.2-3.4); Mean Corpuscular Hemoglobin 31.3 pg (25-34); Mean Corpuscular Hgb Conc 31.3 g/dL (32-36); Mean Platelet Volume 8.8 fL (7.4-10.4); Monocytes # (auto) 0.66 K/uL (0.11-0.59); Monocytes % (auto) 9.9 %; Neutrophils # (auto) 4.51 K/uL (1.4-6.5); Neutrophils % (auto) 67.5 %; Platelet Count 179 K/uL (130-400); RDW Standard Deviation 58.5 fL (36.4-46.3); Red Blood Count 3.42 M/uL (4.7-6.1); White Blood Count 6.69 K/uL (4.8-10.8)
[2019-09-16 05:22] LABS: BUN Creatinine Ratio 24.8 (10-20); Calcium 8.7 mg/dl (8.5-10.1); Creatinine Clr Calc Pharmacy 147.7 ml/min; Est GFR (African American) 125.1; Est GFR (Non-African American) 107.9; Potassium 5.1 mmol/L (3.5-5.1)
[2019-09-16] MEDS ORDERED: SODIUM CHLORIDE 0.9% 1000ML 1,000 ML IV SCH (06:15)
--- NOTE | 2019-09-16 06:44 | Critical Care Progress Note ---
Date of Service September 16, 2019 Assessment & Plan (1) Admitted to intensive care unit: Reason Critically Ill: Kennedy Alegria is a 59-year-old male with a past medical history of diabetes, COPD, hypertension, JAMES on CPAP, and peripheral vascular disease who was admitted to [facility] for revision and debridement of his axillarybifemoral bypass graft which was placed at an outside hospital. He had a left femoral to profunda bypass performed 06/14/[address] Alanis. He presented to surgical team with an open incision of his abdomen and possible exposure of the graft. He is transferred to the ICU for postoperative care following graft revision. Neuro - [facility] ICU: Negative Analgesia: Fentanyl push as needed Sedation: None Cardiac - Hypertension Continue lisinopril 40 mg every morning EKG 07/14/2019: Right axis deviation, sinus tach. Nonspecific ST abnormalities. Echo 06/01/2019: EF 65%, mild concentric LVH, moderate right ventricular enlargement, a sending aorta dilatation to 3.9 cm, sclerotic aortic valve, normal IVC, no thrombus. Trace to mild MR, trace to mild TR, trace pulmonic insufficiency. Normal pulmonary artery pressures. Vascular Axillarybifemoral bypass graft, left femoral to profunda bypass, graft exposure/revision/debridement Patient with good blood flow and dopplerable dorsalis pedis pulses bilaterally Lower left abdominal dressing/packing changed today, continue surface dressing changes leave packing to be managed per surgical team ID/ABX as below Respiratory - COPD Continue Combivent 2 puffs 4 times daily Albuterol every 4 hours as needed Postoperative atelectasis Normally wears CPAP at night, no home oxygen requirement Was on oxymask 5-7L overnight, desaturates when eating breakfast, see below Currently on nasal cannula CXR, naf. Follow clinically. GI - Type 2 diabetes type II diabetic diet RENAL/LYTES - sodium 138, potassium 5.1, creatinine normal at 0.64 BMP daily - No acute concerns ENDO - Type 2 diabetes mellitus Hold home anti-glycemic's (Toujeo 15 units every afternoon, Trulicity 0.75 mg weekly, Jardiance 10 mg p.o. every morning) ICU hyperglycemia protocol HEME - Concern was expressed for a slowly downtrending hemoglobin prior to admission. Hemoglobin day of admission 13.5, last hemoglobin ~8 pts, patient thought to be hemoconcentrated on arrival. Received fluid resuscitation pre-/Intra-Op. 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 Type and screen on file Hemoglobin 10.7 this morning, continue to trend daily ID - Graft infection -Wound cultures 09/15/2019 sent by primary team. No organisms on Gram stain, culture pending -Prior wound cultures from 07/2019 admission grew coag negative staph and MRSA. He had a group B strep bacteremia on 07/14/2019. -On last discharge he was placed on 28 days of Cefdinir and Bactrim. -Received clindamycin perioperatively. Continue clindamycin 600 mg IV every 8 hours -Monitor fever curve. INTEGUMENTARY - See above. LINES/IV ACCESS - PIVs intact. DVT PROPHYLAXIS - Held in the postoperative setting. Thank you for allowing us to be part of this patient's care. Please refer to Dr. Mejia's documentation for any further recommendations. (2) Infected prosthetic vascular graft: (3) JAMES on CPAP: (4) Hypertension: (5) COPD (chronic obstructive pulmonary disease): (6) Diabetes: Supervising Physician Co-Signing Physician Notes Dr. Yao was resident physician during care of patient. I separately evaluated patient for perez portions of the history and the exam. I was present during the critical portion of medical decision making, and I discussed the case with the resident. I generally agree with the findings and plan. Discussed with vascular surgery stable for downgrade. Case Benavides is seen at the bedside this morning. He is alert and oriented x3. He reports he is chronically in pain all over, but feels his pain today is worst in his left flank and right heel. He reports that he had pain in his right heel prior to admission, but that it feels like it is slowly worsening. Left pain feels about the same this morning as yesterday. He has not had any fever, chills, sweats overnight. He denies chest pain, shortness of breath. Endorses left abdominal and flank pain as noted, otherwise denies abdominal pain. No nausea/vomiting this morning. He is concerned about the blood flow to his feet. Voices no other questions at this time. Review of Systems Review of Systems: Constitutional: Denies fever, chills. Endorses fatigue, malaise Eyes: Denies vision change ENT: Denies hearing change, dysphagia Cardiovascular: Denies Chest pain, chest pressure, palpitations Respiratory: Denies shortness of breath, sputum production, difficulty breathing Gastrointestinal: Endorses abdominal pain as noted in subjective, otherwise denies nausea, vomiting Genitourinary: Denies dysuria Musculoskeletal: Endorses heel pain and abdominal pain as noted in subjective Integumentary: Endorses open wounds in his right inguinal region, left inguinal region, left abdomen, and left medial malleolus. Neurological: Denies headache, new numbness/tingling Physical Exam Physical Exam: General: Awake, alert and oriented x3. Follows 1 and two-step commands. Answers questions appropriately. No acute distress. Skin warm and dry with lesions as noted below. HEENT: Atraumatic, normocephalic. Poor dentition, dental caries present. Pupils equal and reactive to light and accommodation Pulm: CTAB A&P. -wheezes, -rales, -rhonchi. Symmetrical chest rise. No increase work of breathing. No respiratory distress. Cardiac: RRR, -mrg. Radial pulses intact and symmetrical. Abdominal: Bowel sounds present. Nonrigid. No rebound tenderness. 1 cm left lower inguinal ulceration, 1 cm right inguinal ulceration. Multiple dressings present on left lower abdominal/flank surgical site, lightly saturated with serous, occasionally serosanguineous fluid. No spreading erythema of the borders. Extremity: Left medial malleolar ulceration with mild erythema, central granulation tissue. Dorsalis pedis pulse intact bilaterally to Doppler. PT not appreciated to palpation on left. Feet warm, moist. Patient has right tenderness to palpation at the right calcaneal fat pad, without crepitus and without tenderness to malleolar squeeze or dorsal midfoot palpation. Neurologic: Sensation in fingers and toes intact bilaterally. Ankle plantar flexion/dorsiflexion intact bilaterally, applications developer strength intact with full strength bilaterally. Addendum: Patient seen by vascular, dressing change performed in presence of vascular team. Patient has 5 mid/left-sided incisions with 1 packed open incision, well-healing without discharge or purulence. Results & Data Vital Signs (Past 12 Hours) Vital Signs Temp Pulse Pulse Resp BP BP BP 09/16/19 06:15 88 17 97/63 L 09/16/19 06:01 81 17 09/16/19 06:00 36.5 C 87 17 101/67 09/16/19 05:45 87 31 H 92/66 L 09/16/19 05:30 87 22 97/59 L 09/16/19 05:15 90 17 110/66 09/16/19 05:01 92 H 17 09/16/19 05:00 86 16 91/63 L 09/16/19 04:45 87 16 96/59 L 09/16/19 04:30 92 H 20 108/59 L 09/16/19 04:15 106 H 14 105/67 09/16/19 04:01 89 16 09/16/19 04:00 36.5 C 88 16 115/79 09/16/19 03:45 85 25 H 108/62 09/16/19 03:30 85 32 H 105/68 09/16/19 03:15 85 16 116/69 09/16/19 03:01 86 21 09/16/19 03:00 86 26 H 112/62 09/16/19 02:45 86 17 111/65 09/16/19 02:30 79 22 96/55 L 09/16/19 02:15 90 31 H 95/61 L 09/16/19 02:01 36.5 C 90 31 H 09/16/19 02:00 91 H 33 H 115/58 L 09/16/19 01:45 88 27 H 95/56 L 09/16/19 01:30 89 22 100/60 09/16/19 01:15 83 16 109/58 L 09/16/19 01:01 86 15 09/16/19 01:00 90 16 99/55 L 09/16/19 00:45 92 H 20 106/61 09/16/19 00:30 91 H 11 L 104/59 L 09/16/19 00:15 86 16 111/59 L 09/16/19 00:01 95 H 19 09/16/19 00:00 36.6 C 92 H 13 115/64 09/15/19 23:45 88 18 119/64 09/15/19 23:30 93 H 17 109/67 09/15/19 23:21 90 16 109/61 09/15/19 23:15 94 H 20 109/61 09/15/19 23:00 92 H 16 95/57 L 09/15/19 22:45 94 H 18 140/75 09/15/19 22:30 90 29 H 126/72 09/15/19 22:15 87 20 128/68 09/15/19 22:00 95 H 17 113/66 09/15/19 21:45 98 H 35 H 125/71 09/15/19 21:30 93 H 16 109/61 09/15/19 21:15 102 H 22 123/73 09/15/19 21:00 99 H 23 146/78 H 09/15/19 20:45 92 H 38 H 135/71 09/15/19 20:30 100 H 20 126/73 09/15/19 20:15 100 H 27 H 130/74 09/15/19 20:00 36.6 C 101 H 17 122/75 09/15/19 19:45 95 H 19 121/75 09/15/19 19:30 99 H 32 H 126/82 09/15/19 19:24 102 H 34 H 123/64 09/15/19 19:15 100 H 35 H 123/66 09/15/19 19:05 107 H 36 H 107/63 09/15/19 18:50 36.9 C 99 H 19 104/68 110/48 L Pulse Ox 09/16/19 06:15 99 09/16/19 06:01 99 09/16/19 06:00 99 09/16/19 05:45 100 09/16/19 05:30 100 09/16/19 05:15 99 09/16/19 05:01 100 09/16/19 05:00 99 09/16/19 04:45 100 09/16/19 04:30 100 09/16/19 04:15 99 09/16/19 04:01 100 09/16/19 04:00 100 09/16/19 03:45 99 09/16/19 03:30 100 09/16/19 03:15 100 09/16/19 03:01 100 09/16/19 03:00 100 09/16/19 02:45 99 09/16/19 02:30 100 09/16/19 02:15 100 09/16/19 02:01 99 09/16/19 02:00 100 09/16/19 01:45 100 09/16/19 01:30 99 09/16/19 01:15 99 09/16/19 01:01 99 09/16/19 01:00 99 09/16/19 00:45 99 09/16/19 00:30 100 09/16/19 00:15 99 09/16/19 00:01 99 09/16/19 00:00 99 09/15/19 23:45 97 09/15/19 23:30 97 09/15/19 23:21 99 09/15/19 23:15 97 09/15/19 23:00 97 09/15/19 22:45 100 09/15/19 22:30 97 09/15/19 22:15 98 09/15/19 22:00 97 09/15/19 21:45 98 09/15/19 21:30 98 09/15/19 21:15 100 09/15/19 21:00 100 09/15/19 20:45 100 09/15/19 20:30 99 09/15/19 20:15 100 09/15/19 20:00 100 09/15/19 19:45 99 09/15/19 19:30 100 09/15/19 19:24 99 09/15/19 19:15 98 09/15/19 19:05 98 09/15/19 18:50 96 Resident Activity Tracking Resident Involvement: Resident Care Provided Care Provided: Adult Hospital Medicine (1) Diabetes Diabetes mellitus complication detail: with polyneuropathy Diabetes mellitus complication status: with neurologic complications Diabetes mellitus long term care phlebotomist insulin use: with long term care phlebotomist use Diabetes mellitus type: type 2 Qualified Code(s): E11.42 - Type 2 diabetes mellitus with diabetic polyneuropathy; Z79.4 - custodial (current) use of insulin (2) COPD (chronic obstructive pulmonary disease) COPD type: unspecified COPD Qualified Code(s): J44.9 - Chronic obstructive pulmonary disease, unspecified (3) Hypertension Hypertension type: essential hypertension Qualified Code(s): I10 - Essential (primary) hypertension
[2019-09-16] MEDS: ASPIRIN 325 MG ECTAB PO SCH (07:53)
[2019-09-16] MEDS: DOCUSATE SODIUM 100 MG CAP PO SCH ×2 (07:53→20:39)
[2019-09-16] MEDS: GABAPENTIN 800 MG TAB PO SCH ×2 (07:53→20:39)
[2019-09-16] MEDS: CILOSTAZOL 100 MG TAB PO SCH (07:53)
[2019-09-16] MEDS: lisinopriL 40 MG TAB PO SCH (07:54)
[2019-09-16] MEDS: IPRATROPIUM BROMIDE/ALBUTEROL respimat INH INH SCH ×4 (07:54→20:37)
--- NOTE | 2019-09-16 08:55 | XRay Report ---
XR chest 1V portable HISTORY: increased O2 requirement, AHRF COMPARISON: Chest 07/14/2019. FINDINGS: Linear right midlung zone density is similar to the prior study. This may represent atelect asis. Otherwise, lungs are clear. No pleural effusions. No pneumothorax. The heart is normal in size. No evidence for pulmonary edema. Surgical clips noted within the left axilla. IMPRESSION: No significant change compared to the prior study. No acute process. Electronically signed by: Manjeet Casas M.D. 09/16/2019 8:54 AM
[2019-09-16] MEDS ORDERED: ICU PROTOCOL FOR HYPERGLYCEMIA SCH (09:00)
--- NOTE | 2019-09-16 09:23 | Surgery Progress Note ---
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 We will continue his local care. He is started back on his Coumadin. We have bridged him with Lovenox till his Coumadin is therapeutic. We will transfer him to PCU today. (2) Wound dehiscence: We will continue local care for the wound. We will remove the packing tomorrow. Subjective This patient is postoperative day 1 from revision of his axillobifemoral bypass as well as debridement of the abdominal wall wound. His only complaint is abdominal discomfort in the area of the debridement. He also complains of some right heel discomfort sometimes extending up to the knee. Is not always present. He denies any pain in his foot or toes themselves. Physical Exam Constitutional: WD/WN, vitals as above Cardiovascular: Vessels: dorsalis pedis pulses present (Pulses present to Doppler both feet.) Good flow through the grafts on exam. Skin: + wound (The open wound of the abdominal wall in the left lower quadrant is clean and dry. There is packing in place which should be removed most likely tomorrow.) Incisions are all clean and dry. Results & Data Vital Signs (Past 12 Hours) Vital Signs Temp Pulse Resp BP Pulse Ox 09/16/19 06:15 88 17 97/63 L 99 09/16/19 06:01 81 17 99 09/16/19 06:00 36.5 C 87 17 101/67 99 09/16/19 05:45 87 31 H 92/66 L 100 09/16/19 05:30 87 22 97/59 L 100 09/16/19 05:15 90 17 110/66 99 09/16/19 05:01 92 H 17 100 09/16/19 05:00 86 16 91/63 L 99 09/16/19 04:45 87 16 96/59 L 100 09/16/19 04:30 92 H 20 108/59 L 100 09/16/19 04:15 106 H 14 105/67 99 09/16/19 04:01 89 16 100 09/16/19 04:00 36.5 C 88 16 115/79 100 09/16/19 03:45 85 25 H 108/62 99 09/16/19 03:30 85 32 H 105/68 100 09/16/19 03:15 85 16 116/69 100 09/16/19 03:01 86 21 100 09/16/19 03:00 86 26 H 112/62 100 09/16/19 02:45 86 17 111/65 99 09/16/19 02:30 79 22 96/55 L 100 09/16/19 02:15 90 31 H 95/61 L 100 09/16/19 02:01 36.5 C 90 31 H 99 09/16/19 02:00 91 H 33 H 115/58 L 100 09/16/19 01:45 88 27 H 95/56 L 100 09/16/19 01:30 89 22 100/60 99 09/16/19 01:15 83 16 109/58 L 99 09/16/19 01:01 86 15 99 09/16/19 01:00 90 16 99/55 L 99 09/16/19 00:45 92 H 20 106/61 99 09/16/19 00:30 91 H 11 L 104/59 L 100 09/16/19 00:15 86 16 111/59 L 99 09/16/19 00:01 95 H 19 99 09/16/19 00:00 36.6 C 92 H 13 115/64 99 09/15/19 23:45 88 18 119/64 97 09/15/19 23:30 93 H 17 109/67 97 09/15/19 23:21 90 16 109/61 99 09/15/19 23:15 94 H 20 109/61 97 09/15/19 23:00 92 H 16 95/57 L 97 09/15/19 22:45 94 H 18 140/75 100 09/15/19 22:30 90 29 H 126/72 97 09/15/19 22:15 87 20 128/68 98 09/15/19 22:00 95 H 17 113/66 97 09/15/19 21:45 98 H 35 H 125/71 98 09/15/19 21:30 93 H 16 109/61 98
--- NOTE | 2019-09-16 10:05 | Anesthesiology Progress Note ---
Date of Service September 16, 2019 Anesthesia Post Procedure Vital Signs Vital Signs: Temp Pulse Pulse Pulse Resp BP BP 09/16/19 06:15 88 17 97/63 L 09/16/19 06:01 81 17 09/16/19 06:00 36.5 C 87 17 101/67 09/16/19 05:45 87 31 H 92/66 L 09/16/19 05:30 87 22 97/59 L 09/16/19 05:15 90 17 110/66 09/16/19 05:01 92 H 17 09/16/19 05:00 86 16 91/63 L 09/16/19 04:45 87 16 96/59 L 09/16/19 04:30 92 H 20 108/59 L 09/16/19 04:15 106 H 14 105/67 09/16/19 04:01 89 16 09/16/19 04:00 36.5 C 88 16 115/79 09/16/19 03:45 85 25 H 108/62 09/16/19 03:30 85 32 H 105/68 09/16/19 03:15 85 16 116/69 09/16/19 03:01 86 21 09/16/19 03:00 86 26 H 112/62 09/16/19 02:45 86 17 111/65 09/16/19 02:30 79 22 96/55 L 09/16/19 02:15 90 31 H 95/61 L 09/16/19 02:01 36.5 C 90 31 H 09/16/19 02:00 91 H 33 H 115/58 L 09/16/19 01:45 88 27 H 95/56 L 09/16/19 01:30 89 22 100/60 09/16/19 01:15 83 16 109/58 L 09/16/19 01:01 86 15 09/16/19 01:00 90 16 99/55 L 09/16/19 00:45 92 H 20 106/61 09/16/19 00:30 91 H 11 L 104/59 L 09/16/19 00:15 86 16 111/59 L 09/16/19 00:01 95 H 19 09/16/19 00:00 36.6 C 92 H 13 115/64 09/15/19 23:45 88 18 119/64 09/15/19 23:30 93 H 17 109/67 09/15/19 23:21 90 16 109/61 09/15/19 23:15 94 H 20 109/61 09/15/19 23:00 92 H 16 95/57 L 09/15/19 22:45 94 H 18 140/75 09/15/19 22:30 90 29 H 126/72 09/15/19 22:15 87 20 128/68 09/15/19 22:00 95 H 17 113/66 09/15/19 21:45 98 H 35 H 125/71 09/15/19 21:30 93 H 16 109/61 09/15/19 21:15 102 H 22 123/73 09/15/19 21:00 99 H 23 146/78 H 09/15/19 20:45 92 H 38 H 135/71 09/15/19 20:30 100 H 20 126/73 09/15/19 20:15 100 H 27 H 130/74 09/15/19 20:00 36.6 C 101 H 17 122/75 09/15/19 19:45 95 H 19 121/75 09/15/19 19:30 99 H 32 H 126/82 09/15/19 19:24 102 H 34 H 123/64 09/15/19 19:15 100 H 35 H 123/66 09/15/19 19:05 107 H 36 H 107/63 09/15/19 18:50 36.9 C 99 H 19 104/68 09/15/19 18:40 36.9 C 103 H 16 89/52 L 09/15/19 18:30 36.9 C 107 H 17 87/59 L 09/15/19 18:20 36.6 C 106 H 18 88/55 L 09/15/19 18:10 36.6 C 117 H 20 82/63 L 09/15/19 18:00 36.6 C 121 H 19 115/91 09/15/19 17:50 36.6 C 119 H 16 136/72 09/15/19 17:41 36.6 C 104 H 20 131/83 09/15/19 12:05 83 16 104/51 L 09/15/19 11:55 80 15 102/55 L 09/15/19 11:48 18 99/56 L 09/15/19 11:43 99 H 20 91/47 L 09/15/19 11:33 83 16 84/49 L 09/15/19 11:21 87 18 09/15/19 11:18 09/15/19 11:15 86 18 09/15/19 10:33 36.7 C 85 18 BP BP Pulse Ox 09/16/19 06:15 99 09/16/19 06:01 99 09/16/19 06:00 99 09/16/19 05:45 100 09/16/19 05:30 100 09/16/19 05:15 99 09/16/19 05:01 100 09/16/19 05:00 99 09/16/19 04:45 100 09/16/19 04:30 100 09/16/19 04:15 99 09/16/19 04:01 100 09/16/19 04:00 100 09/16/19 03:45 99 09/16/19 03:30 100 09/16/19 03:15 100 09/16/19 03:01 100 09/16/19 03:00 100 09/16/19 02:45 99 09/16/19 02:30 100 09/16/19 02:15 100 09/16/19 02:01 99 09/16/19 02:00 100 09/16/19 01:45 100 09/16/19 01:30 99 09/16/19 01:15 99 09/16/19 01:01 99 09/16/19 01:00 99 09/16/19 00:45 99 09/16/19 00:30 100 09/16/19 00:15 99 09/16/19 00:01 99 09/16/19 00:00 99 09/15/19 23:45 97 09/15/19 23:30 97 09/15/19 23:21 99 09/15/19 23:15 97 09/15/19 23:00 97 09/15/19 22:45 100 09/15/19 22:30 97 09/15/19 22:15 98 09/15/19 22:00 97 09/15/19 21:45 98 09/15/19 21:30 98 09/15/19 21:15 100 09/15/19 21:00 100 09/15/19 20:45 100 09/15/19 20:30 99 09/15/19 20:15 100 09/15/19 20:00 100 09/15/19 19:45 99 09/15/19 19:30 100 09/15/19 19:24 99 09/15/19 19:15 98 09/15/19 19:05 98 09/15/19 18:50 110/48 L 96 09/15/19 18:40 83/55 L 96 09/15/19 18:30 90/57 L 94 09/15/19 18:20 94 09/15/19 18:10 97 09/15/19 18:00 97 09/15/19 17:50 100 09/15/19 17:41 96 09/15/19 12:05 96 09/15/19 11:55 98 09/15/19 11:48 98 09/15/19 11:43 99 09/15/19 11:33 95 09/15/19 11:21 77/48 L 94 09/15/19 11:18 76/44 L 09/15/19 11:15 78/47 L 94 09/15/19 10:33 89/57 L 92 Pain Intensity Right Lower Abdomen: Pain Intensity: 3 Notes Mental Status: alert / awake / arousable Patient Amnestic to Procedure: Yes Nausea / Vomiting: adequately controlled Pain: adequately controlled Airway Patency, RR, SpO2: stable & adequate BP & HR: stable & adequate Hydration State: stable & adequate Anesthetic Complications: no major complications apparent and Pt Satisfied with anesthetic care
[2019-09-16] MEDS: ENOXAPARIN INJ 40 MG/0.4 ML SYR SQ SCH ×2 (11:39→20:40)
--- NOTE | 2019-09-16 14:03 | Billing Data ---
Coding Level of Care Code 29719 Inpt Consult Level 5
--- NOTE | 2019-09-16 14:04 | Billing Data ---
Coding Level of Care Code 75381 Subseq Hosp Care Lvl 1
[2019-09-16] MEDS ORDERED: SODIUM CHLORIDE 0.9% 1000ML 500 ML IV ONE (15:49)
[2019-09-16] MEDS: WARFARIN SOD 5 MG TAB PO SCH (16:55)
[2019-09-16] MEDS: SODIUM CHLORIDE 0.9% 1000ML 1,000 ML IV SCH (17:14)
[2019-09-17] MEDS: SODIUM CHLORIDE 0.9% 1000ML 1,000 ML IV SCH ×3 (01:25→17:33)
[2019-09-17] MEDS: OXYCODONE/ACETAMINOPHEN 5mg/325mg TAB PO PRN ×4 (04:12→22:57)
[2019-09-17 06:02] LABS: Basophils # (auto) 0.04 K/uL (0-0.2); Basophils % (auto) 0.6 %; Eosinophils # (auto) 0.11 K/uL (0-0.5); Eosinophils % (auto) 1.8 %; Hematocrit (blood only) 31.3 % (42-52); Immature Granulocytes # (auto) 0.01 K/uL (0.00-0.02); Immature Granulocytes % (auto) 0.2 %; Lymphocytes # (auto) 1.36 K/uL (1.2-3.4); Lymphocytes % (auto) 21.8 %; Mean Corpuscular Hemoglobin 31.4 pg (25-34); Mean Corpuscular Hgb Conc 31.9 g/dL (32-36); Mean Corpuscular Volume 98.4 fL (80-100); Mean Platelet Volume 8.4 fL (7.4-10.4); Monocytes # (auto) 0.71 K/uL (0.11-0.59); Monocytes % (auto) 11.4 %; Neutrophils # (auto) 4.01 K/uL (1.4-6.5); Neutrophils % (auto) 64.2 %; Platelet Count 185 K/uL (130-400); RDW Coefficient of Variation 15.7 % (11.5-14.5); RDW Standard Deviation 57.3 fL (36.4-46.3); Red Blood Count 3.18 M/uL (4.7-6.1); White Blood Count 6.24 K/uL (4.8-10.8)
[2019-09-17 06:13] LABS: INR 1.9 (0.9-1.1); Prothrombin Time 18.9 Seconds (9.0-12.0)
--- NOTE | 2019-09-17 08:31 | Surgery Progress Note ---
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 We will continue his local care. He is started back on his Coumadin. PT/OT to start (2) Wound dehiscence: We will continue local care for the wound. We will change the packing tomorrow. Subjective This patient is postoperative day 2 from revision of his axillobifemoral bypass as well as debridement of the abdominal wall wound. He complains of right great toe discomfort and occassional right heel pain. No other leg pain. He does have abdominal wall pain. Physical Exam Constitutional: WD/WN, vitals as above Cardiovascular: Vessels: dorsalis pedis pulses present (Pulses present to Doppler both feet.) Feet are both viable Skin: + wound (Packing will be changed tomorrow) Results & Data Vital Signs (Past 12 Hours) Vital Signs Temp Pulse Resp BP Pulse Ox 09/17/19 07:22 36.4 C L 89 17 108/58 L 92 09/17/19 04:41 36.5 C 92 H 19 91/59 L 99 09/16/19 23:50 36.5 C 97 H 19 109/57 L 97
[2019-09-17] MEDS: IPRATROPIUM BROMIDE/ALBUTEROL respimat INH INH SCH ×4 (09:40→20:08)
[2019-09-17] MEDS: INSULIN ASPART 100 UNITS/ML 3 ML PEN SC SCH ×4 (09:42→21:35)
[2019-09-17] MEDS: MoRPHine SULFATE 4 MG/ML 1 ML CARP\\VIAL IV PRN ×3 (09:43→20:06)
[2019-09-17] MEDS: GABAPENTIN 800 MG TAB PO SCH ×2 (09:44→20:10)
[2019-09-17] MEDS: ASPIRIN 325 MG ECTAB PO SCH (09:44)
[2019-09-17] MEDS: DOCUSATE SODIUM 100 MG CAP PO SCH ×2 (09:44→20:09)
[2019-09-17] MEDS: lisinopriL 40 MG TAB PO SCH (09:46)
[2019-09-17] MEDS: ENOXAPARIN INJ 40 MG/0.4 ML SYR SQ SCH ×2 (10:00→21:34)
[2019-09-17] MEDS: WARFARIN SOD 5 MG TAB PO SCH (17:32)
[2019-09-18] MEDS: SODIUM CHLORIDE 0.9% 1000ML 1,000 ML IV SCH ×3 (01:57→18:09)
[2019-09-18] MEDS: MoRPHine SULFATE 4 MG/ML 1 ML CARP\\VIAL IV PRN ×3 (02:01→10:55)
[2019-09-18] MEDS: OXYCODONE/ACETAMINOPHEN 5mg/325mg TAB PO PRN ×3 (04:57→18:22)
[2019-09-18] MEDS: IPRATROPIUM BROMIDE/ALBUTEROL respimat INH INH SCH ×4 (04:57→18:23)
[2019-09-18 06:48] LABS: INR 1.7 (0.9-1.1); Prothrombin Time 17.2 Seconds (9.0-12.0)
--- NOTE | 2019-09-18 07:36 | Anesthesiology Progress Note ---
Date of Service September 18, 2019 Anesthesia Post Procedure Vital Signs Vital Signs: Temp Pulse Resp BP BP Pulse Ox 09/18/19 07:23 36.7 C 83 19 107/63 94 09/18/19 03:51 36.7 C 85 17 103/52 L 92 09/17/19 23:06 36.6 C 95 H 20 105/54 L 94 09/17/19 19:51 36.5 C 87 20 111/58 L 93 09/17/19 15:55 36.7 C 96 H 16 81/57 L 95 09/17/19 10:51 36.5 C 90 19 108/63 96 Pain Intensity Right Lower Abdomen: Pain Intensity: 3 Notes Mental Status: alert / awake / arousable and participated in evaluation Patient Amnestic to Procedure: Yes Pain: adequately controlled Airway Patency, RR, SpO2: stable & adequate BP & HR: stable & adequate Anesthetic Complications: no major complications apparent
[2019-09-18] MEDS: GABAPENTIN 800 MG TAB PO SCH ×2 (08:14→22:36)
[2019-09-18] MEDS: ASPIRIN 325 MG ECTAB PO SCH (08:14)
[2019-09-18] MEDS: lisinopriL 40 MG TAB PO SCH (08:14)
[2019-09-18] MEDS: DOCUSATE SODIUM 100 MG CAP PO SCH ×2 (08:15→22:36)
[2019-09-18] MEDS: INSULIN ASPART 100 UNITS/ML 3 ML PEN SC SCH ×4 (08:16→21:07)
[2019-09-18] MEDS: ENOXAPARIN INJ 40 MG/0.4 ML SYR SQ SCH ×2 (09:05→22:36)
--- NOTE | 2019-09-18 11:40 | Surgery Progress Note ---
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 We will continue his local care. He is started back on his Coumadin. (2) Wound dehiscence: We will continue local care for the wound. Wound healing well. Will consider wound vac possibly later this week. Subjective This patient is POD #3 after revision of his axillobifemoral bypass as well as debridement of the abdominal wall wound. He complains of right great toe discomfort and occasional right heel pain. No other leg pain. He does have abdominal wall pain in incisions. Review of Systems Review of Systems: All systems reviewed & are unremarkable except as noted in HPI & below Physical Exam Constitutional: WD/WN, vitals as above Respiratory: normal respiratory effort, lungs clear to auscultation Cardiovascular: Rate/Rhythm: regular rate and regular rhythm Vessels: dorsalis pedis pulses present (Pulses present to Doppler both feet.) Skin: + wound (Packing changed today. Healing well. pt tolerated well) and + incision (abd incisions C/D/I with freedom. +tender) Results & Data Vital Signs (Past 12 Hours) Vital Signs Temp Pulse Resp BP Pulse Ox 09/18/19 11:06 36.5 C 89 18 122/60 94 09/18/19 07:23 36.7 C 83 19 107/63 94 09/18/19 03:51 36.7 C 85 17 103/52 L 92
[2019-09-18] MEDS: WARFARIN SOD 5 MG TAB PO SCH (15:51)
[2019-09-18] MEDS: METFORMIN HCL 500 MG TAB PO SCH (18:09)
[2019-09-18] MEDS: FERROUS SULFATE 325 MG TAB PO SCH (18:09)
[2019-09-18] MEDS: INSULIN GLARGINE SOLOSTAR 100 UNITS/ML 3 ML PEN SQ SCH (21:06)
[2019-09-19] MEDS: OXYCODONE/ACETAMINOPHEN 5mg/325mg TAB PO PRN ×2 (00:38→14:03)
[2019-09-19] MEDS: SODIUM CHLORIDE 0.9% 1000ML 1,000 ML IV SCH ×3 (02:03→18:53)
[2019-09-19 06:29] LABS: INR 1.9 (0.9-1.1); Prothrombin Time 18.9 Seconds (9.0-12.0)
[2019-09-19] MEDS: IPRATROPIUM BROMIDE/ALBUTEROL respimat INH INH SCH ×4 (06:35→17:57)
[2019-09-19] MEDS: FERROUS SULFATE 325 MG TAB PO SCH ×2 (08:57→17:55)
[2019-09-19] MEDS: METFORMIN HCL 500 MG TAB PO SCH ×2 (08:57→17:55)
[2019-09-19] MEDS: GABAPENTIN 800 MG TAB PO SCH ×2 (08:57→20:54)
[2019-09-19] MEDS: ENOXAPARIN INJ 40 MG/0.4 ML SYR SQ SCH ×2 (08:57→20:54)
[2019-09-19] MEDS: INSULIN ASPART 100 UNITS/ML 3 ML PEN SC SCH ×4 (09:00→20:49)
[2019-09-19] MEDS: ASPIRIN 325 MG ECTAB PO SCH (09:44)
[2019-09-19] MEDS: DOCUSATE SODIUM 100 MG CAP PO SCH ×2 (09:44→20:54)
[2019-09-19] MEDS: lisinopriL 40 MG TAB PO SCH (09:44)
[2019-09-19] MEDS: WARFARIN SOD 5 MG TAB PO SCH (15:49)
[2019-09-19] MEDS: MoRPHine SULFATE 4 MG/ML 1 ML CARP\\VIAL IV PRN (16:45)
--- NOTE | 2019-09-19 18:16 | Surgery Progress Note ---
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 If INR therapeutic will d/c home tomorrow with visiting nurses. (2) Wound dehiscence: We will continue local care for the wound. Subjective This patient is post op after revision of his axillobifemoral bypass as well as debridement of the abdominal wall wound. He has no complaints today Physical Exam Constitutional: WD/WN, vitals as above Cardiovascular: Vessels: dorsalis pedis pulses present (Pulses present to Doppler both feet.) Skin: + wound (dressing dry, changed by nurses earlier today) Results & Data Vital Signs (Past 12 Hours) Vital Signs Temp Pulse Resp BP Pulse Ox 09/19/19 15:03 36.8 C 90 18 129/85 95 09/19/19 08:16 36.5 C 89 18 119/69 94
[2019-09-19] MEDS: INSULIN GLARGINE SOLOSTAR 100 UNITS/ML 3 ML PEN SQ SCH (20:49)
[2019-09-20] MEDS: SODIUM CHLORIDE 0.9% 1000ML 1,000 ML IV SCH ×2 (02:53→09:41)
[2019-09-20] MEDS: IPRATROPIUM BROMIDE/ALBUTEROL respimat INH INH SCH ×2 (06:32→11:20)
[2019-09-20 07:55] LABS: INR 2.5 (0.9-1.1)
[2019-09-20] MEDS: OXYCODONE/ACETAMINOPHEN 5mg/325mg TAB PO PRN ×2 (08:07→12:08)
[2019-09-20] MEDS: FERROUS SULFATE 325 MG TAB PO SCH (09:19)
[2019-09-20] MEDS: GABAPENTIN 800 MG TAB PO SCH (09:19)
[2019-09-20] MEDS: lisinopriL 40 MG TAB PO SCH (09:19)
[2019-09-20] MEDS: METFORMIN HCL 500 MG TAB PO SCH (09:19)
[2019-09-20] MEDS: ASPIRIN 325 MG ECTAB PO SCH (09:19)
[2019-09-20] MEDS: ENOXAPARIN INJ 40 MG/0.4 ML SYR SQ SCH (09:21)
[2019-09-20] MEDS: DOCUSATE SODIUM 100 MG CAP PO SCH (09:22)
[2019-09-20] MEDS: INSULIN ASPART 100 UNITS/ML 3 ML PEN SC SCH ×3 (09:27→12:27)
--- NOTE | 2019-09-20 12:46 | Surgery Progress Note ---
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 INR now theapeutic. Continue home dose of coumadin D/C today (2) Wound dehiscence: We will continue local care for the wound. Subjective This patient is post op after revision of his axillobifemoral bypass as well as debridement of the abdominal wall wound. He has no complaints today Physical Exam Constitutional: WD/WN, vitals as above Cardiovascular: Vessels: dorsalis pedis pulses present (bilateral) Skin: + wound (dressing dry, changed by nurses earlier today) Results & Data Vital Signs (Past 12 Hours) Vital Signs Temp Pulse Pulse Resp BP BP BP 09/20/19 11:41 36.7 C 92 H 82 19 138/77 91/52 L 81/57 L 09/20/19 11:37 36.7 C 92 H 82 19 138/77 91/52 L 81/57 L 09/20/19 07:34 36.7 C 82 19 138/77 Pulse Ox 09/20/19 11:41 96 09/20/19 11:37 96 09/20/19 07:34 96
--- NOTE | 2019-09-22 10:28 | Discharge Summary ---
Date of Service September 22, 2019 Admission HPI Per Admitting Provider Patient is a 59 yo who recently underwent a left femoral to profunda bypass. He has had an ax bifem in the past. He came to the ED with bleeding from the left groin and pain. He underwent revision of his bypass. He now presents with an open incision of his abdomen with possible exposed graft. Admission Exam Per Admitting Provider Constitutional: WD/WN, vitals as above Neck: trachea midline Respiratory: normal respiratory effort, lungs clear to auscultation Cardiovascular: Rate/Rhythm: regular rate and regular rhythm Gastrointestinal (Abdomen): Inspection/Auscultation: abdomen with necrotic open wound left side; abdomen not distended Percussion/Palpation: abdomen soft Skin: + incision (open area mid portion of left groin wound. no bleeding seen at this time ) dressing did have old dark blood on it. Neurologic: CN's II-XI intact bilaterally Motor/Sensory: normal movement and no sensory deficit Psychiatric: Orientation: alert and oriented x 3 Principal Diagnosis 1. S/P Revision of ax bifemoral bypass using bovine graft and debridement of L abd wound with removal of exposed graft 2. Wound dehiscence Discharge Exam Constitutional WD/WN, vitals as above Respiratory normal respiratory effort, lungs clear to auscultation Cardiovascular Rate/Rhythm: regular rate and regular rhythm Vessels: dorsalis pedis pulses present (Pulses present to Doppler both feet.) Skin + wound (Packing changed today. Healing well. pt tolerated well) and + incision (abd incisions C/D/I with freedom. 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 INR now theapeutic. Continue home dose of coumadin D/C to home POD #5 (2) Wound dehiscence: We will continue local care for the wound. Total Time Total Time Spent Total Time Spent (In Minutes): 15 min Total Time Includes: Examination of the Patient, Discharge Planning and Medication Reconciliation Discharge Plan Discharge Items Patient Disposition: Home - Home Health Services Reason For Visit: Left Abdominal Wound Infection Discharge Diagnosis: Wound dehiscence Activity: Per Instructions section Lifting: Gradually increase as tolerated Bathing: Keep incision dry Exercise/Sports: Gradually increase as tolerated Non-emergency contact: Surgeon Call non-emergency contact if: you have any medication questions, your symptoms worsen, your pain is not controlled, your pain is worsening, your pain is unusual for you, your pain is concerning for you, your temperature is above 101.5, your wound has increased drainage and your wound pain has increased Follow-up/Referrals: Luis Lemon M.D. [Primary Care Provider] - Diet: Carb Consistent or DM2 and Heart Healthy Addtl Attending Provider Instructions: Irrigate wound with saline Repack with wet to dry 2inch kerlex Change daily ACTIVITY RECOMMENDATIONS: See Above SPECIAL CARE INSTRUCTIONS: Call your doctor if: * Temperature above 101 degrees * Pain not relieved by pain medicine ordered * There is increased drainage or redness from any incision * You have any unanswered questions or concerns. Call [phone] to schedule a follow up appointment if one not already scheduled. Pending Studies at Discharge: No Stand-Alone Forms: My [facility] BABADU, Smoking Cessation Medications and DC Order Prescriptions: New hydrocodone-acetaminophen [Reserve] 5-325 mg tablet 1 tab PO Q6H PRN (Reason: pain) Qty: 30 RF: 0 sulfamethoxazole-trimethoprim [Bactrim DS] 800-160 mg tablet 1 tab PO BID Qty: 60 RF: 0 Continued lisinopril 40 mg Tablet 40 mg PO QAM RF: 0 cilostazol 100 mg Tablet 100 mg PO BID RF: 0 gabapentin [Neurontin] 800 mg Tablet 800 mg PO BID RF: 0 Trulicity 0.75 mg/0.5 mL Pen Injector 0.75 mg SUBCUT WK RF: 0 Toujeo SoloStar U-300 Insulin 300 unit/mL (1.5 mL) Insulin Pen 15 unit SUBCUT QPM RF: 0 aspirin 325 mg Tablet 325 mg PO QAM RF: 0 metformin 1,000 mg Tablet 1,000 mg PO BID RF: 0 albuterol sulfate 90 mcg/actuation Hfa Aerosol Inhaler 2 puff INHALATION QID PRN (Reason: Shortness Of Breath) RF: 0 Jardiance 10 mg Tablet 10 mg PO QAM RF: 0 Combivent Respimat 20-100 mcg/actuation Mist 2 puff inhalation QID RF: 0 warfarin 2.5 mg tablet 2.5 mg PO UD RF: 0 Anibiotic 1 tab PO BID RF: 0 ferrous sulfate 325 mg (65 mg iron) Tablet,Delayed Release (Dr/Ec) 325 mg PO BIDM Qty: 60 RF: 0 docusate sodium 100 mg Capsule 100 mg PO BID Qty: 60 RF: 0 hydrocodone-acetaminophen 10-325 mg Tablet 1 tab PO QID PRN (Reason: Pain) Qty: 60 RF: 0 Discharge Orders: Discharge Order (Routine); Ordered 09/20/19 Ordered By: Denis Hu/Other Patient Handouts: Coumadin Admission Data Admit Date/Time: 09/15/19 17:20 Attending Provider: Denis Alanis Admit Provider: Denis Alanis Primary Care Provider: Lius Lemon Other Providers: [facility],Home [facility] ; Calderon Domingo ; Benny Mejia ; Lowell Lennon ; Bashir Bolanos ; Antony Lockwood ; Jatin Meza ; Kathy Potter ; Rosa Fischer ; Julio Mata ; Amanda Motta ; Jc Quiroz ; Scar Barron ; John Tello ; Jass Leblanc. Other Interventions: Discharge Summary Assessment (RN) Last Done: 09/20/19 11:41 DC Date/Time DO NOT enter until pt leaves facility: 09/20/19 13:37
== END 2019-09-20 13:37 | disposition home health service (06) | DRG 254 ==
LOC: ASU 09:37 → 1E 17:20 → 2E 09-16 18:22 → 3N 09-18 13:57

== ENCOUNTER 2019-10-19 15:32 | Inpatient (IN) ==
[2019-10-19] MEDS ORDERED: fentaNYL citrate 100 MCG/2 ML VIAL IV STA ×2 (16:09→19:14)
[2019-10-19] MEDS ORDERED: ACETAMINOPHEN 1,000 MG/100 ML VIAL IV STA (16:09)
[2019-10-19] MEDS ORDERED: CEFEPIME 2,000 MG/20 ML VIAL IV STA (16:12)
[2019-10-19] MEDS ORDERED: metroNIDAZOLE 500 MG/100 ML BAG IV STA (16:12)
[2019-10-19] MEDS ORDERED: SODIUM CHLORIDE 0.9% 1000ML 2,000 ML IV ONE (16:14)
[2019-10-19 16:17] LABS: Basophils # (auto) 0.01 K/uL (0-0.2); Basophils % (auto) 0.1 %; Eosinophils # (auto) 0.12 K/uL (0-0.5); Eosinophils % (auto) 1.4 %; Hematocrit (blood only) 44.2 % (42-52); Hemoglobin 14.2 g/dL (14.0-18.0); Immature Granulocytes # (auto) 0.03 K/uL (0.00-0.02); Immature Granulocytes % (auto) 0.3 %; Lymphocytes # (auto) 1.42 K/uL (1.2-3.4); Mean Corpuscular Hemoglobin 31.8 pg (25-34); Mean Corpuscular Hgb Conc 32.1 g/dL (32-36); Mean Corpuscular Volume 99.1 fL (80-100); Mean Platelet Volume 8.6 fL (7.4-10.4); Monocytes # (auto) 0.67 K/uL (0.11-0.59); Monocytes % (auto) 7.5 %; Neutrophils # (auto) 6.63 K/uL (1.4-6.5); Neutrophils % (auto) 74.7 %; Platelet Count 269 K/uL (130-400); RDW Coefficient of Variation 16.8 % (11.5-14.5); RDW Standard Deviation 61.7 fL (36.4-46.3); Red Blood Count 4.46 M/uL (4.7-6.1); White Blood Count 8.88 K/uL (4.8-10.8)
[2019-10-19 16:26] LABS: Alanine Aminotransferase 15 U/L (12-78); Albumin Level 3.6 gm/dl (3.4-5.0); Aspartate Aminotransferase 4 U/L (15-37); BUN Creatinine Ratio 21.8 (10-20); Bilirubin Direct < 0.1 mg/dl (0-0.2); Blood Urea Nitrogen 34 mg/dl (7-18); Calcium 8.6 mg/dl (8.5-10.1); Carbon Dioxide 24 mmol/L (21-32); Chloride 102 mmol/L (98-107); Est GFR (African American) 56.8; Glucose 119 mg/dl (70-99); Magnesium 2.4 mg/dl (1.8-2.4); Sodium 133 mmol/L (136-145)
[2019-10-19 16:31] LABS: Albumin Globulin Ratio 0.9 (0.9-2); Alkaline Phosphatase 62 U/L (45-117); Bilirubin,Total 0.2 mg/dl (0.2-1); Globulin 3.8 gm/dl (2.5-4.0); Phosphorus 4.8 mg/dl (2.5-4.9); Total Protein 7.4 gm/dl (6.4-8.2); Troponin I < 0.015 ng/ml (0-0.045)
[2019-10-19 16:33] LABS: iSTAT Creatinine 1.5 mg/dl (0.6-1.3); iSTAT Ionized Calcium 1.17 mmol/l (1.12-1.32)
[2019-10-19 16:39] LABS: INR 3.6 (0.9-1.1); Partial Thromboplastin Ratio 1.6; Partial Thromboplastin Time 44.7 Seconds (21.0-31.0); Prothrombin Time 33.9 Seconds (9.0-12.0)
[2019-10-19 16:56] LABS: Base Excess VBG -4.8 mEq/L; HCO3 VBG 23 mmol/L; PCO2 VBG 51 mmHg (38-50); PO2 VBG 25 mmHg; pH VBG 7.26 (7.36-7.41)
[2019-10-19 16:57] LABS: Oxygen Saturation VBG < 60.0 %
[2019-10-19] MEDS ORDERED: IOVERSOL 100ml IV PRN (17:00)
--- NOTE | 2019-10-19 17:01 | XRay Report ---
XR chest 1V portable HISTORY: SEPSIS COMPARISON: Chest 10/03/2019. FINDINGS: No pneumothorax. No pleural effusions. The lungs are clear. The heart is normal in size. Th ere are surgical clips within the left axilla. IMPRESSION: No significant change compared to the prior study. No acute process. ACT 112: Negative or not required by law. Electronically signed by: Manjeet Casas M.D. 10/19/2019 4:59 PM
--- NOTE | 2019-10-19 17:34 | CT Scan Report ---
CT OF THE ABDOMEN AND PELVIS WITH CONTRAST CLINICAL HISTORY: ?Sepsis, recent infected hematoma s/p evacuation. COMPARISON STUDY: CT of the abdomen and pelvis July 25, 2019. TECHNIQUE: Following IV administration of 93 mL of Optiray-320, axial images of the abdomen and pelvi s were obtained from the lung bases to the proximal femurs. Images were reviewed in the axial, sagitt al, and coronal planes. IV contrast was administered without complication. Automated exposure contro l was utilized for the study. A dose lowering technique was utilized adhering to the principles of A BETITO. CT DOSE: 987.42 mGycm FINDINGS: No pneumatosis, free air or portal venous gas is present. The liver, spleen, adrenal glands , kidneys and pancreas are unremarkable. There is no biliary or pancreatic ductal dilatation. There i s no hydronephrosis. There is no evidence for a bowel obstruction. Images of the pelvis are degraded by streak artifact from a right hip arthroplasty. Extensive aortoiliac atherosclerotic plaque is note d. Bilateral common iliac artery stents are noted. Patency cannot be assessed on this non-CTA exam. A left axillary bifemoral bypass graft is noted. This partially imaged on this exam and suboptimally assessed on this non-CTA exam. Skin freedom are noted overlying the graft within the abdomen are note d. Immediately posterior to the graft, there is a small gas and fluid containing tract that measures 1.1 cm in caliber. This is within the abdominal wall. An open wound is noted. No drainable collection at this site is noted. Note is also made of a small 3.1 cm anterior right groin collection on axial image 422 of 457. This is decreased in size when compared to exam of July 25, 2019. Post surgical changes within the colon are noted. Patency of the aortobifemoral graft cannot be assessed on this no n-CTA exam. IMPRESSION: 1. Partial visualization of the left axillobifemoral bypass graft. Patency cannot be assessed on this non-CTA exam. Open wound within the left anterior abdominal wall with no drainable collection at thi s site. Small gas and fluid containing linear tract posterior to the patent graft could reflect previ ous graft site, tiny abscess or fistula. This does not represent a drainable collection. 2. Interval decrease in size of a small right groin fluid collection, measuring 3.1 cm. Sterility can not be assessed by CT. 3. No acute intra-abdominal process. ACT 112: Negative or not required by law. Electronically signed by: Florian Main M.D. 10/19/2019 5:33 PM
[2019-10-19] MEDS ORDERED: CEFEPIME 2,000 MG/20 ML VIAL ONE (19:13)
[2019-10-19] MEDS ORDERED: SODIUM CHLORIDE 0.9% 1000ML 1,000 ML IV ONE (19:14)
[2019-10-19 19:40] LABS: Appearance Urine Clear (Clear); Bilirubin Urine Negative (Negative); Blood Urine Negative (Negative); Color Urine Yellow; Glucose Urine UA 3+ (Negative); Ketones Urine Negative (Negative); Leukocyte Esterase Urine Negative (Negative); Nitrite Urine Negative (Negative); Protein Urine Negative (Negative); Specific Gravity Urine 1.022 (1.000-1.030); Urobilinogen Urine Negative (Negative)
--- NOTE | 2019-10-19 20:00 | Ultrasound Report ---
BILATERAL LOWER EXTREMITY ARTERIAL DOPPLER ULTRASOUND CLINICAL HISTORY: Right lower extremity pain. No dopplerable pulse. COMPARISON STUDY: Right lower extremity arterial Doppler ultrasound. CT angiography with runoff April 21, 2019. TECHNIQUE: Grayscale, color and duplex Doppler sonography of the arterial systems of both lower extre mities was performed. FINDINGS: Evaluation is difficult given extensive surgical history. Extensive atherosclerotic plaque within the bilateral lower extremities is noted. A left axillary bifemoral bypass graft is noted. Thi s appears patent. A femoral to femoral bypass graft is occluded. Left limb of the graft extends to th e posterior tibial artery and is patent. The [place] left common femoral and superficial femoral arter ies are occluded. There is monophasic flow within the left popliteal artery. The left anterior tibial artery is occluded. There is monophasic, dampened flow within the left dorsalis pedis. Right common femoral artery is occluded as is the right superficial femoral artery. There is markedly dampened, monophasic flow within the right popliteal, anterior tibial, peroneal and dorsalis pedis v essels which is similar to ultrasound of October 03, 2019. Ankle to brachial indices could not be ob tained in this patient due to left calf graft. IMPRESSION: 1. Extensive atherosclerotic plaque within the bilateral lower extremities. Left axillary bifemoral b ypass graft. The limb to the left common femoral artery is occluded. However, a bypass graft to the l eft posterior tibial artery is patent. Patent left posterior tibial artery. Otherwise, left calf vess els with markedly diminished flow. 2. Right limb of bifemoral graft patent to the level of the right common femoral artery. However, occ luded distal right common femoral and superficial femoral arteries with markedly diminished, dampened flow within the right calf vessels which is similar to ultrasound of October 03, 2019. ACT 112: Negative or not required by law. Electronically signed by: Florian Main M.D. 10/19/2019 7:59 PM
[2019-10-19] MEDS ORDERED: VANCOMYCIN CONSULT ACTIVE PRN (20:26)
[2019-10-19] MEDS ORDERED: VANCOMYCIN HCL 2,000 MG in SODIUM CHLORIDE 0.9% 500 ML IV ONE (20:26)
--- NOTE | 2019-10-19 21:14 | Emergency Department Note ---
Entered by Brittany Valentin acting as a scribe for History of Present Illness General Chief complaint: Foot Injury/Pain Stated complaint: RT HEEL VERY SORE Time Seen by Provider: 10/19/19 15:50 History of Present Illness Provider complaint: right heel pain Onset (ago): week(s) 1 Location: lower extremity and right Pain Consistency: + other (worsening) Maximum Pain Intensity: 9 Relieved By: + none Associated symptoms: + denies other symptoms (pain in left foot) and + other (rafts put into his right leg in June with multiple complications, freedom removed, became septic, on Coumadin); no fever/chills The patient is a 59 year old male who presents to the ED with complaints of worsening right heel pain that started 1 week ago. Per , the patient received a call today from Dr. Hernández office today saying that if the patient does not go to the ED immediately, he may lose his foot. Per , the patient had a grafts put into his right leg in June. Per , there were several post-operative complications following this procedure which cause the patient to get a hematoma. Per , they were also worried about infection and unfortunately the patient became septic in July. The patient states that he was admitted here for 3 weeks on IV antibiotics. Per , the patients last surgery was 10/03/2019 where he had the remaining freedom removed by a nurse in Dr. Hernández office. Per , the nurse spoke with Dr. Alanis about this procedure and he recommended the patient to go to the ED. Per , the patient went to [facility] and was discharged 3 days later. The patient states that he has not seen a doctor since then, but a home health nurse has come to check on his wound vac every day. The patient states that his right heel is in so much pain that the home health nurse recommended him to come to the ED today. The patient states that nothing is helping to relieve him of this pain. The patient denied fevers and pain in his left foot. The patient notes that he takes Coumadin. Home Medications Home Medications Medication Instructions Recorded Confirmed Type Combivent Respimat 2 puff INHALATION QID PRN 05/01/19 10/19/19 History Jardiance 10 mg PO QAM 05/01/19 10/19/19 History Toujeo SoloStar U-300 Insulin 15 unit SUBCUT QPM 05/01/19 10/19/19 History Trulicity 0.75 mg SUBCUT SA 05/01/19 10/19/19 History albuterol sulfate 2 puff INHALATION QID PRN 05/01/19 10/19/19 History aspirin 325 mg PO QAM 05/01/19 10/19/19 History cilostazol 100 mg PO BID 05/01/19 10/19/19 History gabapentin [Neurontin] 800 mg PO BID 05/01/19 10/19/19 History lisinopril 40 mg PO QAM 05/01/19 10/19/19 History metformin 1,000 mg PO BID 05/01/19 10/19/19 History docusate sodium 100 mg PO BID #60 cap 08/01/19 10/19/19 Rx ferrous sulfate 325 mg PO BIDM #60 tab 08/01/19 10/19/19 Rx hydrocodone-acetaminophen [Altha] 1 tab PO Q6H PRN #30 tab 09/20/19 10/19/19 Rx levofloxacin 500 mg PO QAM 10/19/19 10/19/19 History sulfamethoxazole-trimethoprim 1 tab PO BID 10/19/19 10/19/19 History warfarin 5 mg PO QDD 10/19/19 10/19/19 History Allergies Allergy/AdvReac Type Severity Reaction Status Date / Time Penicillins Allergy Severe THROAT Verified 10/19/19 16:30 SWELLS AND HIVES Past Med/Surg History Medical History Arthritis Chronic back pain Chronic obstructive pulmonary disease Diabetes mellitus, type 2 Diabetic neuropathy, type II diabetes mellitus Diverticulitis (Resolved) History of transfusion Hypertension Neuropathy PVD (peripheral vascular disease) Sleep apnea CPAP HS SOB (shortness of breath) on exertion 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 and A total of 10 systems reviewed and were otherwise negative Physical Exam Vital Signs Vital Signs - 24 hr 10/19/19 15:37 10/19/19 15:49 10/19/19 15:57 Temperature 36.3 C L Temperature Source Oral Pulse Rate 103 H 93 H 100 H Pulse Rate [Finger] Pulse Rate from SpO2 Sensor 92 H 98 H Respiratory Rate 20 Respiratory Effort / Characteristics Respiratory Depth Blood Pressure 78/48 L 98/63 L Blood Pressure [Right Arm] Blood Pressure Mean 58 75 Blood Pressure Mean [Right Arm] Blood Pressure Position [Right Arm] Pulse Oximetry 97 98 98 Oxygen Delivery Method Room Air Room Air Room Air Oxygen Flow Rate Sepsis Recent Fever Within 48 Hours No Sepsis New/Unexplained Change in Mental Status No Sepsis Action Taken by Nursing No Action Required 10/19/19 16:00 10/19/19 16:01 10/19/19 16:10 Temperature Temperature Source Pulse Rate 88 89 88 Pulse Rate [Finger] Pulse Rate from SpO2 Sensor 89 89 89 Respiratory Rate Respiratory Effort / Characteristics Respiratory Depth Blood Pressure 65/48 L 84/50 L Blood Pressure [Right Arm] Blood Pressure Mean 59 77 Blood Pressure Mean [Right Arm] Blood Pressure Position [Right Arm] Pulse Oximetry 96 98 Oxygen Delivery Method Room Air Room Air Room Air Oxygen Flow Rate Sepsis Recent Fever Within 48 Hours Sepsis New/Unexplained Change in Mental Status Sepsis Action Taken by Nursing 10/19/19 16:15 10/19/19 16:16 10/19/19 16:20 Temperature Temperature Source Pulse Rate 87 85 Pulse Rate [Finger] Pulse Rate from SpO2 Sensor 86 86 Respiratory Rate Respiratory Effort / Characteristics Respiratory Depth Blood Pressure 86/52 L Blood Pressure [Right Arm] Blood Pressure Mean 57 Blood Pressure Mean [Right Arm] Blood Pressure Position [Right Arm] Pulse Oximetry 99 98 Oxygen Delivery Method Room Air Room Air Room Air Oxygen Flow Rate Sepsis Recent Fever Within 48 Hours Sepsis New/Unexplained Change in Mental Status Sepsis Action Taken by Nursing 10/19/19 16:30 10/19/19 16:31 10/19/19 16:40 Temperature Temperature Source Pulse Rate 87 84 85 Pulse Rate [Finger] Pulse Rate from SpO2 Sensor 85 85 85 Respiratory Rate Respiratory Effort / Characteristics Respiratory Depth Blood Pressure 84/59 L Blood Pressure [Right Arm] Blood Pressure Mean 69 Blood Pressure Mean [Right Arm] Blood Pressure Position [Right Arm] Pulse Oximetry 98 97 97 Oxygen Delivery Method Room Air Room Air Room Air Oxygen Flow Rate Sepsis Recent Fever Within 48 Hours Sepsis New/Unexplained Change in Mental Status Sepsis Action Taken by Nursing 10/19/19 16:45 10/19/19 16:50 10/19/19 17:10 Temperature Temperature Source Pulse Rate 81 80 81 Pulse Rate [Finger] Pulse Rate from SpO2 Sensor 81 80 81 Respiratory Rate Respiratory Effort / Characteristics Respiratory Depth Blood Pressure 99/48 L 88/44 L Blood Pressure [Right Arm] Blood Pressure Mean 68 51 Blood Pressure Mean [Right Arm] Blood Pressure Position [Right Arm] Pulse Oximetry 99 95 98 Oxygen Delivery Method Room Air Room Air Room Air Oxygen Flow Rate Sepsis Recent Fever Within 48 Hours Sepsis New/Unexplained Change in Mental Status Sepsis Action Taken by Nursing 10/19/19 17:12 10/19/19 17:15 10/19/19 17:20 Temperature Temperature Source Pulse Rate 76 79 77 Pulse Rate [Finger] Pulse Rate from SpO2 Sensor 76 79 77 Respiratory Rate Respiratory Effort / Characteristics Respiratory Depth Blood Pressure 90/49 L Blood Pressure [Right Arm] Blood Pressure Mean 57 Blood Pressure Mean [Right Arm] Blood Pressure Position [Right Arm] Pulse Oximetry 100 97 99 Oxygen Delivery Method Room Air Room Air Oxygen Flow Rate Sepsis Recent Fever Within 48 Hours Sepsis New/Unexplained Change in Mental Status Sepsis Action Taken by Nursing 10/19/19 19:10 10/19/19 19:12 10/19/19 19:20 Temperature Temperature Source Pulse Rate 82 84 87 Pulse Rate [Finger] Pulse Rate from SpO2 Sensor 82 86 Respiratory Rate 13 17 18 Respiratory Effort / Characteristics Respiratory Depth Blood Pressure 82/44 L Blood Pressure [Right Arm] Blood Pressure Mean 74 Blood Pressure Mean [Right Arm] Blood Pressure Position [Right Arm] Pulse Oximetry 97 97 Oxygen Delivery Method Room Air Room Air Room Air Oxygen Flow Rate Sepsis Recent Fever Within 48 Hours Sepsis New/Unexplained Change in Mental Status Sepsis Action Taken by Nursing 10/19/19 19:29 10/19/19 19:30 10/19/19 19:31 Temperature Temperature Source Pulse Rate 79 82 Pulse Rate [Finger] 82 Pulse Rate from SpO2 Sensor 80 82 Respiratory Rate 17 26 H 15 Respiratory Effort / Characteristics Respiratory Depth Blood Pressure 101/52 L Blood Pressure [Right Arm] 82/44 L Blood Pressure Mean 69 Blood Pressure Mean [Right Arm] 56 Blood Pressure Position [Right Arm] Pulse Oximetry 97 97 96 Oxygen Delivery Method Room Air Room Air Room Air Oxygen Flow Rate Sepsis Recent Fever Within 48 Hours Sepsis New/Unexplained Change in Mental Status Sepsis Action Taken by Nursing 10/19/19 19:40 10/19/19 19:41 10/19/19 19:50 Temperature Temperature Source Pulse Rate 78 79 80 Pulse Rate [Finger] Pulse Rate from SpO2 Sensor 79 78 80 Respiratory Rate 22 19 14 Respiratory Effort / Characteristics Respiratory Depth Blood Pressure 97/48 L 98/52 L Blood Pressure [Right Arm] Blood Pressure Mean 62 67 Blood Pressure Mean [Right Arm] Blood Pressure Position [Right Arm] Pulse Oximetry 96 94 93 Oxygen Delivery Method Room Air Room Air Room Air Oxygen Flow Rate Sepsis Recent Fever Within 48 Hours Sepsis New/Unexplained Change in Mental Status Sepsis Action Taken by Nursing 10/19/19 19:51 10/19/19 20:00 10/19/19 20:01 Temperature Temperature Source Pulse Rate 81 82 80 Pulse Rate [Finger] Pulse Rate from SpO2 Sensor 81 82 80 Respiratory Rate 16 16 15 Respiratory Effort / Characteristics Respiratory Depth Blood Pressure 100/61 Blood Pressure [Right Arm] Blood Pressure Mean 74 Blood Pressure Mean [Right Arm] Blood Pressure Position [Right Arm] Pulse Oximetry 90 99 100 Oxygen Delivery Method Room Air Room Air Nasal Cannula Oxygen Flow Rate 3 Sepsis Recent Fever Within 48 Hours Sepsis New/Unexplained Change in Mental Status Sepsis Action Taken by Nursing 10/19/19 20:53 Temperature Temperature Source Pulse Rate Pulse Rate [Finger] 84 Pulse Rate from SpO2 Sensor Respiratory Rate 18 Respiratory Effort / Characteristics Non-Labored Spontaneous Respiratory Depth Normal Blood Pressure Blood Pressure [Right Arm] 90/64 L Blood Pressure Mean Blood Pressure Mean [Right Arm] 72 Blood Pressure Position [Right Arm] Lying Pulse Oximetry 96 Oxygen Delivery Method Room Air Oxygen Flow Rate Sepsis Recent Fever Within 48 Hours Sepsis New/Unexplained Change in Mental Status Sepsis Action Taken by Nursing GENERAL: Awake, alert, ill-appearing, in no distress HENT: Normocephalic, atraumatic. Oropharynx with dry mucous membranes and otherwise unremarkable. EYES: Normal conjunctiva. Sclera non-icteric. NECK: Supple. No nuchal rigidity. FROM. No JVD. RESPIRATORY: Diminished at bases otherwise clear to auscultation bilaterally. CARDIAC: Regular rate, normal rhythm. Extremities warm and well perfused. Pulses equal. ABDOMEN: Open left lower quadrant abdominal site with scant purulent discharge. Soft, non-distended. No tenderness to palpation. No rebound or guarding. No ma sses. RECTAL: Deferred. MUSCULOSKELETAL: Chest examination reveals no tenderness. The back is symmet rical on inspection without obvious abnormality. There is no CVA tenderness to palpation. No joint edema. LOWER EXTREMITIES: Mild tenderness to right foot with slightly delayed capillary refill, unable to doppler right pedal pulses but foot is warm. Left lower extremity with biphasic DP pulses. Calves are equal size bilaterally and non- tender. No discoloration. 4cm right heel ulcer. NEURO: Normal sensorium. No sensory or motor deficits noted. SKIN: No rash or jaundice noted. Course Course 1551: Past medical records reviewed. The patient was evaluated in room B01. A complete history and physical exam was performed. 1646: I discussed the patient's case with Dr. Diony Sifuentes. He requests arterial studies of both legs because the patient has a history of bifem bypass. He agrees that it is reasonable to admit the patient for sepsis evaluation if he is not looking well. 2011: I discussed the patient's case with Dr. Diony Sifuentes. He states that the US report appears to be consistent with his post intervention status from September. He recommends admission to hospital medicine for management of abdominal infection. 2222: I discussed the patient's case with Dr. Chaney- [facility], Hospitalist. He will evaluate the patient for further management. Consultations Consultation #1: I discussed the patient's case with Dr. Diony Sifuentes. He requests arterial studies of both legs because the patient has a history of bifem bypass. He agrees that it is reasonable to admit the patient for sepsis evaluation if he is not looking well. Time: 16:47 Consultation #2: I discussed the patient's case with Dr. Alanis- Vascular Surgery. He states that the US report appears to be consistent with his post intervention status from September. He recommends admission to hospital medicine for management of abdominal infection. Time: 20:12 Consultation #3: I discussed the patient's case with Dr. Chaney- [facility], Hospitalist. He will evaluate the patient for further management. Time: 22:23 Administered Medications Hydrocodone Bitart/Acetaminophen (Altha 5/325) 1 tab PO Q6H PRN PRN Reason: Pain Stop: 11/03/19 00:05 Last Admin: 10/20/19 00:47 Dose: 1 tab Documented by: [id number] Cilostazol (Pletal) 100 mg PO BID [facility] Stop: 11/18/19 23:49 Last Admin: 10/20/19 01:01 Dose: 100 mg Documented by: [id number] Docusate Sodium (Colace) 100 mg PO BID [facility] Stop: 11/18/19 23:49 Last Admin: 10/20/19 01:01 Dose: 100 mg Documented by: [id number] Gabapentin (Neurontin) 800 mg PO BID [facility] Stop: 11/18/19 23:49 Last Admin: 10/20/19 01:00 Dose: 800 mg Documented by: [id number] Aztreonam 1,000 mg/ Dextrose 105 mls @ 100 mls/hr IV Q8H [facility]; Protocol Stop: 10/30/19 00:00 Last Admin: 10/20/19 00:52 Dose: 100 mls/hr Documented by: [id number] Ioversol (Optiray 320 100ml) 93 ml IV ONCE PRN PRN Reason: Interaction Checking Stop: 10/23/19 16:59 Last Admin: 10/19/19 17:01 Dose: 1 ml Documented by: [id number] Discontinued Medications Cefepime HCl (Maxipime) Confirm Administered Dose 2,000 mg .ROUTE .STK-MED ONE Stop: 10/19/19 19:14 Last Admin: 10/19/19 19:23 Dose: Not Given Documented by: [id number] Fentanyl Citrate (Fentanyl Citrate) 100 mcg IV NOW STA Stop: 10/19/19 16:10 Last Admin: 10/19/19 16:33 Dose: 100 mcg Documented by: [id number] Fentanyl Citrate (Fentanyl Citrate) 50 mcg IV NOW STA Stop: 10/19/19 19:15 Last Admin: 10/19/19 19:35 Dose: 50 mcg Documented by: [id number] Acetaminophen (Ofirmev) 1,000 mg in 100 mls @ 400 mls/hr IV NOW STA Stop: 10/19/19 16:23 Last Infusion: 10/19/19 16:50 Dose: 0 mls/hr Documented by: [id number] Admin: 10/19/19 16:34 Dose: 400 mls/hr Documented by: [id number] Cefepime HCl (Maxipime) 2,000 mg in 20 mls @ 5 mls/min IV NOW STA; Protocol Stop: 10/19/19 16:15 Last Admin: 10/19/19 19:23 Dose: 5 mls/min Documented by: [id number] Metronidazole (Flagyl) 500 mg in 100 mls @ 100 mls/hr IV NOW STA Stop: 10/19/19 17:11 Last Infusion: 10/19/19 20:53 Dose: 0 mls/hr Documented by: [id number] Admin: 10/19/19 19:22 Dose: 100 mls/hr Documented by: [id number] Sodium Chloride (Nss 1000ml) 2,000 mls @ 999 mls/hr IV .Q2H1M ONE Stop: 10/19/19 18:14 Last Infusion: 10/19/19 19:03 Dose: 0 mls/hr Documented by: [id number] Admin: 10/19/19 16:34 Dose: 999 mls/hr Documented by: [id number] Sodium Chloride (Nss 1000ml) 1,000 mls @ 999 mls/hr IV .Q1H1M ONE Stop: 10/19/19 20:14 Last Infusion: 10/19/19 20:53 Dose: 0 mls/hr Documented by: [id number] Admin: 10/19/19 19:23 Dose: 999 mls/hr Documented by: [id number] Vancomycin HCl 2,000 mg/ (Sodium Chloride) 540 mls @ 200 mls/hr IV NOW ONE Stop: 10/19/19 23:07 Last Infusion: 10/19/19 23:30 Dose: 0 mls/hr Documented by: [id number] Admin: 10/19/19 20:47 Dose: 200 mls/hr Documented by: [id number] Morphine Sulfate (Morphine Sulfate) 4 mg IV NOW STA Stop: 10/19/19 21:55 Last Admin: 10/19/19 22:30 Dose: 4 mg Documented by: [id number] Critical Care Time Critical Care Time: Yes Total Critical Care Time: 65 I have personally spent greater than 65 minutes of critical care time in the direct management of this patient. This includes bedside care, interpretation of diagnostic studies, and testing, discussion with consultants, patient, and family members, and other required patient management activities. This 65 m inutes is in excess of all separately billable procedures. Medical Decision Making Differential Diagnosis Differential diagnosis: Etiologies such as DVT, vascular ischemia, radiculopathy, fracture, hematoma/contusion, myositis, abscess, septic arthritis cellulitis, joint effusion, trauma, lymphedema, idiopathic, CHF, as well as others were entertained. Medical Records Attestation: I reviewed the patient's medical records. Home Medications Current Medication List: was personally reviewed by me Laboratory Data Attestation: I reviewed the patient's lab results. Result diagrams: 10/19/19 15:50 10/19/19 15:50 Lab Results 10/19/19 10/19/19 10/19/19 Range/Units 15:50 15:50 15:50 WBC 8.88 (4.8-10.8) K/uL RBC 4.46 L (4.7-6.1) M/uL Hgb 14.2 (14.0-18.0) g/dL POC Hgb (14.0-18.0) g/dl Hct 44.2 (42-52) % POC Hct (42-52) % MCV 99.1 (80-100) fL MCH 31.8 (25-34) pg MCHC 32.1 (32-36) g/dL RDW Std Deviation 61.7 H (36.4-46.3) fL RDW Coeff of Maira 16.8 H (11.5-14.5) % Plt Count 269 (130-400) K/uL MPV 8.6 (7.4-10.4) fL Immature Gran % (Auto) 0.3 % Neut % (Auto) 74.7 % Lymph % (Auto) 16.0 % [place] % (Auto) 7.5 % Eos % (Auto) 1.4 % Baso % (Auto) 0.1 % Immature Gran # (Auto) 0.03 H (0.00-0.02) K/uL Neut # (Auto) 6.63 H (1.4-6.5) K/uL Lymph # (Auto) 1.42 (1.2-3.4) K/uL [place] # (Auto) 0.67 H (0.11-0.59) K/uL Eos # (Auto) 0.12 (0-0.5) K/uL Baso # (Auto) 0.01 (0-0.2) K/uL PT 33.9 H (9.0-12.0) Seconds INR 3.6 H (0.9-1.1) APTT 44.7 H (21.0-31.0) Seconds PTT Ratio 1.6 VBG pH (7.36-7.41) VBG pCO2 (38-50) mmHg VBG pO2 mmHg VBG HCO3 mmol/L VBG O2 Saturation % VBG Base Excess mEq/L Barometric Pressure mm/Hg POC Sodium (135-144) mEq/L Sodium 133 L (136-145) mmol/L POC Potassium (3.3-5.0) mEq/L Potassium 5.0 (3.5-5.1) mmol/L POC Chloride (101-112) mEq/L Chloride 102 (98-107) mmol/L Carbon Dioxide 24 (21-32) mmol/L POC Total CO2 (24-31) mEq/l Anion Gap 7.0 (3-11) POC Anion Gap (16-25) mmol/L POC BUN (7-18) mg/dl BUN 34 H (7-18) mg/dl Creatinine 1.54 H (0.6-1.4) mg/dl POC Creatinine (0.6-1.3) mg/dl Est Cr Clr Drug Dosing Not Reportable Est GFR ( Amer) 56.8 Est GFR (Non-Af Amer) 49.0 BUN/Creatinine Ratio 21.8 H (10-20) Glucose 119 H (70-99) mg/dl POC Glucose (other) (70-99) mg/dl Lactate (0.4-2.0) mmol/L Calcium 8.6 (8.5-10.1) mg/dl POC Ioniz Calcium [place] (1.12-1.32) mmol/l Phosphorus 4.8 (2.5-4.9) mg/dl Magnesium 2.4 (1.8-2.4) mg/dl Total Bilirubin 0.2 (0.2-1) mg/dl Direct Bilirubin < 0.1 (0-0.2) mg/dl AST 4 L (15-37) U/L ALT 15 (12-78) U/L Alkaline Phosphatase 62 (45-117) U/L Troponin I < 0.015 (0-0.045) ng/ml Total Protein 7.4 (6.4-8.2) gm/dl Albumin 3.6 (3.4-5.0) gm/dl Globulin 3.8 (2.5-4.0) gm/dl Albumin/Globulin Ratio 0.9 (0.9-2) Urine Color Urine Appearance (Clear) Urine pH (4.5-7.5) Ur Specific [place] (1.000-1.030) Urine Protein (Negative) Urine Glucose (UA) (Negative) Urine Ketones (Negative) Urine Blood (Negative) Urine Nitrite (Negative) Urine Bilirubin (Negative) Urine Urobilinogen (Negative) Ur Leukocyte Esterase (Negative) 10/19/19 10/19/19 10/19/19 Range/Units 16:17 16:30 16:30 WBC (4.8-10.8) K/uL RBC (4.7-6.1) M/uL Hgb (14.0-18.0) g/dL POC Hgb 15.0 (14.0-18.0) g/dl Hct (42-52) % POC Hct 44 (42-52) % MCV (80-100) fL MCH (25-34) pg MCHC (32-36) g/dL RDW Std Deviation (36.4-46.3) fL RDW Coeff of Maira (11.5-14.5) % Plt Count (130-400) K/uL MPV (7.4-10.4) fL Immature Gran % (Auto) % Neut % (Auto) % Lymph % (Auto) % [place] % (Auto) % Eos % (Auto) % Baso % (Auto) % Immature Gran # (Auto) (0.00-0.02) K/uL Neut # (Auto) (1.4-6.5) K/uL Lymph # (Auto) (1.2-3.4) K/uL [place] # (Auto) (0.11-0.59) K/uL Eos # (Auto) (0-0.5) K/uL Baso # (Auto) (0-0.2) K/uL PT (9.0-12.0) Seconds INR (0.9-1.1) APTT (21.0-31.0) Seconds PTT Ratio VBG pH 7.26 L (7.36-7.41) VBG pCO2 51 H (38-50) mmHg VBG pO2 25 mmHg VBG HCO3 23 mmol/L VBG O2 Saturation < 60.0 % VBG Base Excess -4.8 mEq/L Barometric Pressure 745.2 mm/Hg POC Sodium 133 L (135-144) mEq/L Sodium (136-145) mmol/L POC Potassium 5.0 (3.3-5.0) mEq/L Potassium (3.5-5.1) mmol/L POC Chloride 101 (101-112) mEq/L Chloride (98-107) mmol/L Carbon Dioxide (21-32) mmol/L POC Total CO2 24 (24-31) mEq/l Anion Gap (3-11) POC Anion Gap 14.0 L (16-25) mmol/L POC BUN 34 H (7-18) mg/dl BUN (7-18) mg/dl Creatinine (0.6-1.4) mg/dl POC Creatinine 1.5 H (0.6-1.3) mg/dl Est Cr Clr Drug Dosing Est GFR ( Amer) Est GFR (Non-Af Amer) BUN/Creatinine Ratio (10-20) Glucose (70-99) mg/dl POC Glucose (other) 117 H (70-99) mg/dl Lactate 1.9 (0.4-2.0) mmol/L Calcium (8.5-10.1) mg/dl POC Ioniz Calcium [place] 1.17 (1.12-1.32) mmol/l Phosphorus (2.5-4.9) mg/dl Magnesium (1.8-2.4) mg/dl Total Bilirubin (0.2-1) mg/dl Direct Bilirubin (0-0.2) mg/dl AST (15-37) U/L ALT (12-78) U/L Alkaline Phosphatase (45-117) U/L Troponin I (0-0.045) ng/ml Total Protein (6.4-8.2) gm/dl Albumin (3.4-5.0) gm/dl Globulin (2.5-4.0) gm/dl Albumin/Globulin Ratio (0.9-2) Urine Color Urine Appearance (Clear) Urine pH (4.5-7.5) Ur Specific [place] (1.000-1.030) Urine Protein (Negative) Urine Glucose (UA) (Negative) Urine Ketones (Negative) Urine Blood (Negative) Urine Nitrite (Negative) Urine Bilirubin (Negative) Urine Urobilinogen (Negative) Ur Leukocyte Esterase (Negative) 10/19/19 Range/Units 19:30 WBC (4.8-10.8) K/uL RBC (4.7-6.1) M/uL Hgb (14.0-18.0) g/dL POC Hgb (14.0-18.0) g/dl Hct (42-52) % POC Hct (42-52) % MCV (80-100) fL MCH (25-34) pg MCHC (32-36) g/dL RDW Std Deviation (36.4-46.3) fL RDW Coeff of Maira (11.5-14.5) % Plt Count (130-400) K/uL MPV (7.4-10.4) fL Immature Gran % (Auto) % Neut % (Auto) % Lymph % (Auto) % [place] % (Auto) % Eos % (Auto) % Baso % (Auto) % Immature Gran # (Auto) (0.00-0.02) K/uL Neut # (Auto) (1.4-6.5) K/uL Lymph # (Auto) (1.2-3.4) K/uL [place] # (Auto) (0.11-0.59) K/uL Eos # (Auto) (0-0.5) K/uL Baso # (Auto) (0-0.2) K/uL PT (9.0-12.0) Seconds INR (0.9-1.1) APTT (21.0-31.0) Seconds PTT Ratio VBG pH (7.36-7.41) VBG pCO2 (38-50) mmHg VBG pO2 mmHg VBG HCO3 mmol/L VBG O2 Saturation % VBG Base Excess mEq/L Barometric Pressure mm/Hg POC Sodium (135-144) mEq/L Sodium (136-145) mmol/L POC Potassium (3.3-5.0) mEq/L Potassium (3.5-5.1) mmol/L POC Chloride (101-112) mEq/L Chloride (98-107) mmol/L Carbon Dioxide (21-32) mmol/L POC Total CO2 (24-31) mEq/l Anion Gap (3-11) POC Anion Gap (16-25) mmol/L POC BUN (7-18) mg/dl BUN (7-18) mg/dl Creatinine (0.6-1.4) mg/dl POC Creatinine (0.6-1.3) mg/dl Est Cr Clr Drug Dosing Est GFR ( Amer) Est GFR (Non-Af Amer) BUN/Creatinine Ratio (10-20) Glucose (70-99) mg/dl POC Glucose (other) (70-99) mg/dl Lactate (0.4-2.0) mmol/L Calcium (8.5-10.1) mg/dl POC Ioniz Calcium [place] (1.12-1.32) mmol/l Phosphorus (2.5-4.9) mg/dl Magnesium (1.8-2.4) mg/dl Total Bilirubin (0.2-1) mg/dl Direct Bilirubin (0-0.2) mg/dl AST (15-37) U/L ALT (12-78) U/L Alkaline Phosphatase (45-117) U/L Troponin I (0-0.045) ng/ml Total Protein (6.4-8.2) gm/dl Albumin (3.4-5.0) gm/dl Globulin (2.5-4.0) gm/dl Albumin/Globulin Ratio (0.9-2) Urine Color Yellow Urine Appearance Clear (Clear) Urine pH 5.0 (4.5-7.5) Ur Specific [place] 1.022 (1.000-1.030) Urine Protein Negative (Negative) Urine Glucose (UA) 3+ H (Negative) Urine Ketones Negative (Negative) Urine Blood Negative (Negative) Urine Nitrite Negative (Negative) Urine Bilirubin Negative (Negative) Urine Urobilinogen Negative (Negative) Ur Leukocyte Esterase Negative (Negative) Imaging Data Radiologist's Impression: Radiology results as stated below per my review and the radiologist's interpretation: ADDENDUM Addendum: Note is made of an additional tiny left anterior abdominal wall fluid collection, measuring 2.1 cm, adjacent to the right limb of the bypass graft. Electronically signed by: Flroian Main M.D. 10/19/2019 5:[address] OF THE ABDOMEN AND PELVIS WITH CONTRAST CLINICAL HISTORY: ?Sepsis, recent infected hematoma s/p evacuation. COMPARISON STUDY: CT of the abdomen and pelvis July 25, 2019. TECHNIQUE: Following IV administration of 93 mL of [id number]-320, axial images of the abdomen and pelvis were obtained from the lung bases to the proximal femurs. Images were reviewed in the axial, sagittal, and coronal planes. IV contrast was administered without complication. Automated exposure control was utilized for the study. A dose lowering technique was utilized adhering to the principles of ALARA. CT DOSE: 987.42 mGycm FINDINGS: No pneumatosis, free air or portal venous gas is present. The liver, spleen, adrenal glands, kidneys and pancreas are unremarkable. There is no biliary or pancreatic ductal dilatation. There is no hydronephrosis. There is no evidence for a bowel obstruction. Images of the pelvis are degraded by streak artifact from a right hip arthroplasty. Extensive aortoiliac atherosclerotic plaque is noted. Bilateral common iliac artery stents are noted. Patency cannot be assessed on this non-CTA exam. A left axillary bifemoral bypass graft is noted. This partially imaged on this exam and suboptimally assessed on this non-CTA exam. Skin freedom are noted overlying the graft within the abdomen are noted. Immediately posterior to the graft, there is a small gas and fluid containing tract that measures 1.1 cm in caliber. This is within the abdominal wall. An open wound is noted. No drainable collection at this site is noted. Note is also made of a small 3.1 cm anterior right groin collection on axial image 422 of 457. This is decreased in size when compared to exam of July 25, 2019. Post surgical changes within the colon are noted. Patency of the aortobifemoral graft cannot be assessed on this non-CTA exam. IMPRESSION: 1. Partial visualization of the left axillobifemoral bypass graft. Patency cannot be assessed on this non-CTA exam. Open wound within the left anterior abdominal wall with no drainable collection at this site. Small gas and fluid containing linear tract posterior to the patent graft could reflect previous graft site, tiny abscess or fistula. This does not represent a drainable collection. 2. Interval decrease in size of a small right groin fluid collection, measuring 3.1 cm. Sterility cannot be assessed by CT. 3. No acute intra-abdominal process. ACT 112: Negative or not required by law. Electronically signed by: Florian Main M.D. 10/19/2019 5:33 PM XR chest 1V portable HISTORY: SEPSIS COMPARISON: Chest 10/03/2019. FINDINGS: No pneumothorax. No pleural effusions. The lungs are clear. The heart is normal in size. There are surgical clips within the left axilla. IMPRESSION: No significant change compared to the prior study. No acute process. ACT 112: Negative or not required by law. Electronically signed by: Manjeet Casas M.D. 10/19/2019 4:59 PM BILATERAL LOWER EXTREMITY ARTERIAL DOPPLER ULTRASOUND CLINICAL HISTORY: Right lower extremity pain. No dopplerable pulse. COMPARISON STUDY: Right lower extremity arterial Doppler ultrasound. CT angiography with runoff April 21, 2019. TECHNIQUE: Grayscale, color and duplex Doppler sonography of the arterial systems of both lower extremities was performed. FINDINGS: Evaluation is difficult given extensive surgical history. Extensive atherosclerotic plaque within the bilateral lower extremities is noted. A left axillary bifemoral bypass graft is noted. This appears patent. A femoral to femoral bypass graft is occluded. Left limb of the graft extends to the posterior tibial artery and is patent. The [place] left common femoral and superficial femoral arteries are occluded. There is monophasic flow within the left popliteal artery. The left anterior tibial artery is occluded. There is monophasic, dampened flow within the left dorsalis pedis. Right common femoral artery is occluded as is the right superficial femoral artery. There is markedly dampened, monophasic flow within the right popliteal, anterior tibial, peroneal and dorsalis pedis vessels which is similar to ultrasound of October 03, 2019. Ankle to brachial indices could not be obtained in this patient due to left calf graft. IMPRESSION: 1. Extensive atherosclerotic plaque within the bilateral lower extremities. Left axillary bifemoral bypass graft. The limb to the left common femoral artery is occluded. However, a bypass graft to the left posterior tibial artery is patent. Patent left posterior tibial artery. Otherwise, left calf vessels with markedly diminished flow. 2. Right limb of bifemoral graft patent to the level of the right common femoral artery. However, occluded distal right common femoral and superficial femoral arteries with markedly diminished, dampened flow within the right calf vessels which is similar to ultrasound of October 03, 2019. ACT 112: Negative or not required by law. Electronically signed by: Florian Main M.D. 10/19/2019 7:59 PM ECG Data Attestation: I personally reviewed and interpreted this ECG as follows: Indication: + weakness Rate (beats per minute): 86 Rhythm: + normal sinus ECG [place]: + Right axis deviation ECG ST segments: no ST depression and no ST elevation ECG Findings: + Other (QTC 406); no PACs and no PVCs Blood Pressure Blood Pressure Findings: Low blood pressure Blood Pressure Disposition: further management by hospitalist NAVID Pearl The patient is a pleasant 59-year-old gentleman with a past medical history of peripheral vascular disease with recent complicated medical course involving lower extremity graft occlusion and infection with hematoma evacuation with recent occlusion of right bypass graft [place] nikolai status post angioplasty at [facility] presents emergency department with worsening right foot pain that became worse today in the setting of continue antibiotics for abdominal wall infection per HPI. Arrival the patient is ill-appearing but no acute distress, afebrile with heart rate in the 100s and hypotensive with blood p ressure 70/40s. EKG without overt acute ischemia. Chest x-ray negative for acute process. WBC, H/H and platelets within normal limits. Chemistry without acidosis. VBG with slight acidemia at 7.26 with PCO2 of 51. Similar to prior. Creatinine 1.5 with BUN of 34 consistent with the patient's clinically dry appearance. Electrolytes and LFTs unremarkable. Troponin negative/undetectable. Patient was fluid responsive to IV fluid resuscitation with blood pressure 90-1100s/40-60s. He was ordered for broad-spectrum antibiotics. CT the abdomen pelvis demonstrates stable to improved findings with the exception of a new 2 cm subcutaneous collection adjacent to the patient's right bypass graft. Arterial duplex was performed which demonstrated patent right limb of bifemoral graft to the level of the right common femoral artery but with distal common femoral and superficial arteries markedly diminished with dampened flow in the right calf vessels. Additionally demonstrates patent bypass graft to the left posterior tibial artery with patent left posterior tibial artery. Comment of occlusion of the limb to the left common femoral artery. Results were reviewed with Dr. Alanis, the patient's vascular surgeon. Findings are believed to be expected in the setting of the patient's post intervention status from September. Recommends admission to hospital medicine for management of the patient's abdominal infection. Case was discussed with Dr. Gonzalez, [facility] hospitalist, who will evaluate the patient for admission. Impression & Plan Abdominal infection, Hypotension, Peripheral arterial disease, Acute renal insufficiency Discharge Plan Visit Data *Final* Discharge Date/Time: 10/19/19 23:30 Chief Complaint: Foot Injury/Pain Stated Complaint: RT HEEL VERY SORE ED Provider: Thomas Cotter Discharge Problem: Abdominal infection, Hypotension, Peripheral arterial disease, Acute renal insufficiency Patient Disposition: Admitted As Inpatient Discharge Instructions Interventions: ED Discharge Assessment Last Done: 10/19/19 23:30 Discharge Problem: Hypotension Qualifiers: Hypotension type: unspecified hypotension type Qualified Code(s): I95.9 - Hypotension, unspecified The scribe's documentation has been prepared under my direction and personally reviewed by me in its entirety. I confirm that the note above accurately reflects all work, treatment, procedures, and medical decision making performed by me.
[2019-10-19] MEDS ORDERED: MoRPHine SULFATE 4 MG/ML 1 ML CARP\\VIAL IV STA (21:54)
--- NOTE | 2019-10-19 21:57 | History & Physical Report ---
Date of Service October 19, 2019 Assessment & Plan (1) Diabetic foot infection: Diabetic foot infection/severe right heel pain- Daptomycin IV and aztreonam IV. Relatively new infection, not likely to be osteomyelitis. Has had similar processes involving the left foot that did resolve after re vascularization. Present on Admission?: Yes (2) Peripheral arterial disease: Vascular surgery Dr. Alanis aware. Continue aspirin and cilostazol. Hold lisinopril to allow increased blood pressure for better perfusion. On warfarin 5 mg daily. INR 3.6. Repeat daily Present on Admission?: Yes (3) Deep postoperative wound infection: Deep postoperative wound infection/history of hematoma/secondary wound dehiscence- Daily packing changes performed by nursing at home. Consult wound care. Cover with IV antibiotics, daptomycin IV and aztreonam IV. Present on Admission?: Yes (4) Wound dehiscence: see above Present on Admission?: Yes (5) Diabetes mellitus, type 2: Continue Jardiance. Hold metformin and Trulicity. Reduce Toujeo from 15 to 8 units subcu every evening. Place on Accu-Cheks before meals and at bedtime with NovoLog coverage per scale. Present on Admission?: Yes (6) Acute kidney injury superimposed on chronic kidney disease: Creatinine 1.54 upon admission, with range 0.43-0.78. Hold lisinopril. Placed on NSS. Repeat labs daily Present on Admission?: Yes (7) COPD (chronic obstructive pulmonary disease): Continue usual inhalers albuterol sulfate and Combivent Respimat Present on Admission?: Yes (8) Hypertension: On lisinopril 40 mg p.o. daily. Will be held due to relative hypotension. Present on Admission?: Yes (9) Enterococcal sepsis: Antibiotic selection to cover Present on Admission?: Yes (10) Streptococcal sepsis: Antibiotic selection to cover Present on Admission?: Yes History of Present Illness Chief Complaint: The patient presents to the ED due to worsening right heel pain over the past week. Primary Care Provider: Luis Lemon The patient is a 59-year-old male past medical history including severe peripheral arterial disease, peripheral neuropathy, wound dehiscence, postop hemorrhage from incision, hypotension, circulatory shock, strep sepsis, diabetes mellitus, COPD, JAMES on CPAP, enterococcal sepsis, infected prosthetic vascular graft and acute blood loss postoperative anemia. His nurse called Dr. Alanis's office today due to worsening right heel pain, and was advised to come to emergency department. The patient does have nursing come on a daily basis to change dressings in his left lower quadrant abdominal wound. Allergies Allergy/AdvReac Type Severity Reaction Status Date / Time Penicillins Allergy Severe THROAT Verified 10/19/19 16:30 SWELLS AND HIVES Home Medications Home Medications Medication Instructions Recorded Confirmed Type Combivent Respimat 2 puff INHALATION QID PRN 05/01/19 10/19/19 History Jardiance 10 mg PO QAM 05/01/19 10/19/19 History Toujeo SoloStar U-300 Insulin 15 unit SUBCUT QPM 05/01/19 10/19/19 History Trulicity 0.75 mg SUBCUT SA 05/01/19 10/19/19 History albuterol sulfate 2 puff INHALATION QID PRN 05/01/19 10/19/19 History aspirin 325 mg PO QAM 05/01/19 10/19/19 History cilostazol 100 mg PO BID 05/01/19 10/19/19 History gabapentin [Neurontin] 800 mg PO BID 05/01/19 10/19/19 History lisinopril 40 mg PO QAM 05/01/19 10/19/19 History metformin 1,000 mg PO BID 05/01/19 10/19/19 History docusate sodium 100 mg PO BID #60 cap 08/01/19 10/19/19 Rx ferrous sulfate 325 mg PO BIDM #60 tab 08/01/19 10/19/19 Rx hydrocodone-acetaminophen [[place]] 1 tab PO Q6H PRN #30 tab 09/20/19 10/19/19 Rx levofloxacin 500 mg PO QAM 10/19/19 10/19/19 History sulfamethoxazole-trimethoprim 1 tab PO BID 10/19/19 10/19/19 History warfarin 5 mg PO QDD 10/19/19 10/19/19 History Past Med/Surg History Medical History (Updated 10/20/19 @ 02:41 by Raman Chaney MD) Arthritis Chronic back pain Chronic obstructive pulmonary disease Diabetes mellitus, type 2 Diabetic neuropathy, type II diabetes mellitus Diverticulitis (Resolved) History of transfusion Hypertension Neuropathy PVD (peripheral vascular disease) Sleep apnea CPAP HS SOB (shortness of breath) on exertion 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 PER PT LEFT LOWER EXTREMITY ANGIOGRAM, REVISION OF LEFT AXILLARY TO RIGHT FEMORAL BYPASS WITH INTERPOSITION OF BOVINE GRAFT: 07/21/19: Grade view 3, MAC#3, ETT 8 at [facility] History of bowel resection WITH COLOSTOMY/REVERSAL LATER History of right hip replacement S/P femoral-popliteal bypass surgery X 3-LEFT LEG (WOUND DEBRIDEMENT LEFT FOOT) Social History Preferred Language: Uzbek Communication Ability: Effective Digital Media Associate Required: No Beliefs That Will Affect Care: None marital status: Current Living Situation: Spouse Current Living Situation Comment: only Other Information That Helps Us Care for You: No Feels Safe at Home: Yes Smoking Status: Former smoker Tobacco Type: cigarettes ; Cigarettes Per Day: 16 ; Do You Dip or Chew Tobacco: No ; Second Hand Exposure: No ; Tobacco Cessation Education Requested by Patient: No Hx Alcohol Use: No Hx Substance Use: Yes substance use type: marijuana Last Used Substance: Unknown Review of Systems Review of Systems: The patient denies chest pain, palpitations, shortness of breath, dyspnea on exertion, cough, lower extremity swelling, sore throat, fevers, chills, sweats, nausea, vomiting, diarrhea , constipation, abdominal pain, pelvic pain, blood in urine or stool, dysuria, urinary frequency or urgency, lightheadedness, dizziness, headache, memory loss, loss of consciousness, abnormal bruising or bleeding, focal or generalized weakness, numbness or tingling in arms, generalized arthralgias or myalgias, back or neck pain, or night sweats. The review of systems is otherwise negative other than for that already noted above, and at least 10 systems have been reviewed. Physical Exam Physical Exam: The patient is awake, alert and oriented 3, normocephalic and atraumatic, lying in bed and in no acute distress. HEENT--PERRL, EOMI, mucous membranes and oropharynx normal. Neck--supple. No JVD. No bruits. Thyroid normal, trachea midline, no adenopathy. Heart--normal S1 and S2. No murmurs, rubs or gallops. Lungs--clear bilaterally, no respiratory distress, no accessory muscle use. Abdomen--normal bowel sounds and soft, NT/ND Extremities--right heel with moderate erythema, and surface abrasion. poor pulses b/l Dermatologic-LLQ surgical wound with packing. Neurologic--cranial nerves II through XII grossly intact. Rheumatologic--normal range of motion. Psychiatric--normal affect. Results & Data Vital Signs (Past 12 Hours) Vital Signs Temp Pulse Pulse Resp BP BP Pulse Ox 10/19/19 20:53 84 18 90/64 L 96 10/19/19 20:01 80 15 100 10/19/19 20:00 82 16 100/61 99 10/19/19 19:51 81 16 90 10/19/19 19:50 80 14 98/52 L 93 10/19/19 19:41 79 19 94 10/19/19 19:40 78 22 97/48 L 96 10/19/19 19:31 82 15 96 10/19/19 19:30 79 26 H 101/52 L 97 10/19/19 19:29 82 17 82/44 L 97 10/19/19 19:20 87 18 97 10/19/19 19:12 84 17 82/44 L 97 10/19/19 19:10 82 13 10/19/19 17:20 77 99 10/19/19 17:15 79 90/49 L 97 10/19/19 17:12 76 100 10/19/19 17:10 81 88/44 L 98 10/19/19 16:50 80 95 10/19/19 16:45 81 99/48 L 99 10/19/19 16:40 85 97 10/19/19 16:31 84 84/59 L 97 10/19/19 16:30 87 98 10/19/19 16:20 85 98 10/19/19 16:15 87 86/52 L 99 10/19/19 16:10 88 98 10/19/19 16:01 89 84/50 L 96 10/19/19 16:00 88 65/48 L 10/19/19 15:57 100 H 98 10/19/19 15:49 93 H 98/63 L 98 10/19/19 15:37 97.3 F L 103 H 20 78/48 L 97 Laboratory Results Laboratory Results WBC 8.88 K/uL (4.8-10.8) 10/19/19 15:50 RBC 4.46 M/uL (4.7-6.1) L 10/19/19 15:50 Hgb 14.2 g/dL (14.0-18.0) 10/19/19 15:50 POC Hgb 15.0 g/dl (14.0-18.0) 10/19/19 16:17 Hct 44.2 % (42-52) 10/19/19 15:50 POC Hct 44 % (42-52) 10/19/19 16:17 MCV 99.1 fL (80-100) 10/19/19 15:50 MCH 31.8 pg (25-34) 10/19/19 15:50 MCHC 32.1 g/dL (32-36) 10/19/19 15:50 RDW Std Deviation 61.7 fL (36.4-46.3) H 10/19/19 15:50 RDW Coeff of Maira 16.8 % (11.5-14.5) H 10/19/19 15:50 Plt Count 269 K/uL (130-400) 10/19/19 15:50 MPV 8.6 fL (7.4-10.4) 10/19/19 15:50 Immature Gran % (Auto) 0.3 % 10/19/19 15:50 Neut % (Auto) 74.7 % 10/19/19 15:50 Lymph % (Auto) 16.0 % 10/19/19 15:50 Stone % (Auto) 7.5 % 10/19/19 15:50 Eos % (Auto) 1.4 % 10/19/19 15:50 Baso % (Auto) 0.1 % 10/19/19 15:50 Immature Gran # (Auto) 0.03 K/uL (0.00-0.02) H 10/19/19 15:50 Neut # (Auto) 6.63 K/uL (1.4-6.5) H 10/19/19 15:50 Lymph # (Auto) 1.42 K/uL (1.2-3.4) 10/19/19 15:50 Stone # (Auto) 0.67 K/uL (0.11-0.59) H 10/19/19 15:50 Eos # (Auto) 0.12 K/uL (0-0.5) 10/19/19 15:50 Baso # (Auto) 0.01 K/uL (0-0.2) 10/19/19 15:50 PT 33.9 Seconds (9.0-12.0) H 10/19/19 15:50 INR 3.6 (0.9-1.1) H 10/19/19 15:50 APTT 44.7 Seconds (21.0-31.0) H 10/19/19 15:50 PTT Ratio 1.6 10/19/19 15:50 VBG pH 7.26 (7.36-7.41) L 10/19/19 16:30 VBG pCO2 51 mmHg (38-50) H 10/19/19 16:30 VBG pO2 25 mmHg 10/19/19 16:30 VBG HCO3 23 mmol/L 10/19/19 16:30 VBG O2 Saturation < 60.0 % 10/19/19 16:30 VBG Base Excess -4.8 mEq/L 10/19/19 16:30 Barometric Pressure 745.2 mm/Hg 10/19/19 16:30 POC Sodium 133 mEq/L (135-144) L 10/19/19 16:17 Sodium 133 mmol/L (136-145) L 10/19/19 15:50 POC Potassium 5.0 mEq/L (3.3-5.0) 10/19/19 16:17 Potassium 5.0 mmol/L (3.5-5.1) 10/19/19 15:50 POC Chloride 101 mEq/L (101-112) 10/19/19 16:17 Chloride 102 mmol/L (98-107) 10/19/19 15:50 Carbon Dioxide 24 mmol/L (21-32) 10/19/19 15:50 POC Total CO2 24 mEq/l (24-31) 10/19/19 16:17 Anion Gap 7.0 (3-11) 10/19/19 15:50 POC Anion Gap 14.0 mmol/L (16-25) L 10/19/19 16:17 POC BUN 34 mg/dl (7-18) H 10/19/19 16:17 BUN 34 mg/dl (7-18) H 10/19/19 15:50 Creatinine 1.54 mg/dl (0.6-1.4) H 10/19/19 15:50 POC Creatinine 1.5 mg/dl (0.6-1.3) H 10/19/19 16:17 Est Cr Clr Drug Dosing Not Reportable 10/19/19 15:50 Est GFR ( Amer) 56.8 10/19/19 15:50 Est GFR (Non-Af Amer) 49.0 10/19/19 15:50 BUN/Creatinine Ratio 21.8 (10-20) H 10/19/19 15:50 Glucose 119 mg/dl (70-99) H 10/19/19 15:50 POC Glucose (other) 117 mg/dl (70-99) H 10/19/19 16:17 Lactate 1.9 mmol/L (0.4-2.0) 10/19/19 16:30 Calcium 8.6 mg/dl (8.5-10.1) 10/19/19 15:50 POC Ioniz Calcium [place] 1.17 mmol/l (1.12-1.32) 10/19/19 16:17 Phosphorus 4.8 mg/dl (2.5-4.9) 10/19/19 15:50 Magnesium 2.4 mg/dl (1.8-2.4) 10/19/19 15:50 Total Bilirubin 0.2 mg/dl (0.2-1) 10/19/19 15:50 Direct Bilirubin < 0.1 mg/dl (0-0.2) 10/19/19 15:50 AST 4 U/L (15-37) L 10/19/19 15:50 ALT 15 U/L (12-78) 10/19/19 15:50 Alkaline Phosphatase 62 U/L (45-117) 10/19/19 15:50 Troponin I < 0.015 ng/ml (0-0.045) 10/19/19 15:50 Total Protein 7.4 gm/dl (6.4-8.2) 10/19/19 15:50 Albumin 3.6 gm/dl (3.4-5.0) 10/19/19 15:50 Globulin 3.8 gm/dl (2.5-4.0) 10/19/19 15:50 Albumin/Globulin Ratio 0.9 (0.9-2) 10/19/19 15:50 Urine Color Yellow 10/19/19 19:30 Urine Appearance Clear (Clear) 10/19/19 19:30 Urine pH 5.0 (4.5-7.5) 10/19/19 19:30 Ur Specific Martin 1.022 (1.000-1.030) 10/19/19 19:30 Urine Protein Negative (Negative) 10/19/19 19:30 Urine Glucose (UA) 3+ (Negative) H 10/19/19 19:30 Urine Ketones Negative (Negative) 10/19/19 19:30 Urine Blood Negative (Negative) 10/19/19 19:30 Urine Nitrite Negative (Negative) 10/19/19 19:30 Urine Bilirubin Negative (Negative) 10/19/19 19:30 Urine Urobilinogen Negative (Negative) 10/19/19 19:30 Ur Leukocyte Esterase Negative (Negative) 10/19/19 19:30 Diagnostic Findings [place], [place] [phone] CT Scan Report Patient: HARRIS PÉREZ Date: 10/19/19 MR#: [id number]: [address] [facility] Acct ID:[id number]: Date: [address] [place] [address] Zip: [place] [address] Age: 59Location: ED Sex: M Room/Bed: Att Phy:Diagnosis: RT HEEL VERY SORE Catherine Phy: Luis Lemon M.D.Service Date: 10/19/19 Fam Phy:Interpreting Phy: Florian Main MD Admit Phy: Ordering Phy: Thomas Cotter M.D. cc: ~ ADDENDUM Addendum: Note is made of an additional tiny left anterior abdominal wall fluid collection, measuring 2.1 cm, adjacent to the right limb of the bypass graft. Electronically signed by: Florian Main M.D. 10/19/2019 5:[address] OF THE ABDOMEN AND PELVIS WITH CONTRAST CLINICAL HISTORY: ?Sepsis, recent infected hematoma s/p evacuation. COMPARISON STUDY: CT of the abdomen and pelvis July 25, 2019. TECHNIQUE: Following IV administration of 93 mL of Optiray-320, axial images of the abdomen and pelvis were obtained from the lung bases to the proximal femurs. Images were reviewed in the axial, sagittal, and coronal planes. IV contrast was administered without complication. Automated exposure control was utilized for the study. A dose lowering technique was utilized adhering to the principles of ALARA. CT DOSE: 987.42 mGycm FINDINGS: No pneumatosis, free air or portal venous gas is present. The liver, spleen, adrenal glands, kidneys and pancreas are unremarkable. There is no biliary or pancreatic ductal dilatation. There is no hydronephrosis. There is no evidence for a bowel obstruction. Images of the pelvis are degraded by streak artifact from a right hip arthroplasty. Extensive aortoiliac atherosclerotic plaque is noted. Bilateral common iliac artery stents are noted. Patency cannot be assessed on this non-CTA exam. A left axillary bifemoral bypass graft is noted. This partially imaged on this exam and suboptimally assessed on this non-CTA exam. Skin freedom are noted overlying the graft within the abdomen are noted. Immediately posterior to the graft, there is a small gas and fluid containing tract that measures 1.1 cm in caliber. This is within the abdominal wall. An open wound is noted. No drainable collection at this site is noted. Note is also made of a small 3.1 cm anterior right groin collection on axial image 422 of 457. This is decreased in size when compared to exam of July 25, 2019. Post surgical changes within the colon are noted. Patency of the aortobifemoral graft cannot be assessed on this non- CTA exam. IMPRESSION: 1. Partial visualization of the left axillobifemoral bypass graft. Patency cannot be assessed on this non-CTA exam. Open wound within the left anterior abdominal wall with no drainable collection at this site. Small gas and fluid containing linear tract posterior to the patent graft could reflect previous graft site, tiny abscess or fistula. This does not represent a drainable collection. 2. Interval decrease in size of a small right groin fluid collection, measuring 3.1 cm. Sterility cannot be assessed by CT. 3. No acute intra-abdominal process. ACT 112: Negative or not required by law. Electronically signed by: Florian Main M.D. 10/19/2019 5:33 PM Dictated: 10/19/191715 Transcribed: 10/19/191715 [place] [phone] Ultrasound Report Patient: HARRIS PÉREZ Date: 10/19/19 MR#: [id number]: [facility] Acct ID:[id number]: Date: [address] [place] [address] Zip: [place] [address] Age: 59Location: ED Sex: M Room/Bed: Att Phy:Diagnosis: RT HEEL VERY SORE Catherine Phy: Luis Lemon M.D.Service Date: 10/19/19 Fam Phy:Interpreting Phy: Florian Main MD Admit Phy: Ordering Phy: Thomas Cotter M.D. cc: ~ BILATERAL LOWER EXTREMITY ARTERIAL DOPPLER ULTRASOUND CLINICAL HISTORY: Right lower extremity pain. No dopplerable pulse. COMPARISON STUDY: Right lower extremity arterial Doppler ultrasound. CT angiography with runoff April 21, 2019. TECHNIQUE: Grayscale, color and duplex Doppler sonography of the arterial systems of both lower extremities was performed. FINDINGS: Evaluation is difficult given extensive surgical history. Extensive atherosclerotic plaque within the bilateral lower extremities is noted. A left axillary bifemoral bypass graft is noted. This appears patent. A femoral to femoral bypass graft is occluded. Left limb of the graft extends to the posterior tibial artery and is patent. The [place] left common femoral and superficial femoral arteries are occluded. There is monophasic flow within the left popliteal artery. The left anterior tibial artery is occluded. There is monophasic, dampened flow within the left dorsalis pedis. Right common femoral artery is occluded as is the right superficial femoral artery. There is markedly dampened, monophasic flow within the right popliteal, anterior tibial, peroneal and dorsalis pedis vessels which is similar to ultr asound of October 03, 2019. Ankle to brachial indices could not be obtained in this patient due to left calf graft. IMPRESSION: 1. Extensive atherosclerotic plaque within the bilateral lower extremities. Left axillary bifemoral bypass graft. The limb to the left common femoral artery is occluded. However, a bypass graft to the left posterior tibial artery is patent. Patent left posterior tibial artery. Otherwise, left calf vessels with markedly diminished flow. 2. Right limb of bifemoral graft patent to the level of the right common femoral artery. However, occluded distal right common femoral and superficial femoral arteries with markedly diminished, dampened flow within the right calf vessels which is similar to ultrasound of October 03, 2019. ACT 112: Negative or not required by law. Electronically signed by: Florian Main M.D. 10/19/2019 7:59 PM [facility], [place] [phone] XRay Report Patient: HARRIS PÉREZ Date: 10/19/19 MR#: [id number]: [facility] Acct ID:[id number]: Date: [address] [place] [address] Zip: [place] [address] Age: 59Location: ED Sex: M Room/Bed: Att Phy:Diagnosis: RT HEEL VERY SORE Catherine Phy: Luis Lemon M.D.Service Date: 10/19/19 Fam Phy:Interpreting Phy: Manjeet Casas MD Admit Phy: Ordering Phy: Thomas Cotter M.D. cc: ~ XR chest 1V portable HISTORY: SEPSIS COMPARISON: Chest 10/03/2019. FINDINGS: No pneumothorax. No pleural effusions. The lungs are clear. The heart is normal in size. There are surgical clips within the left axilla. IMPRESSION: No significant change compared to the prior study. No acute process. ACT 112: Negative or not required by law. Electronically signed by: Manjeet Casas M.D. 10/19/2019 4:59 PM Dictated: 10/19/191657 Transcribed: 10/19/191657 Dictated: 10/19/191942 Transcribed: 10/19/191942 Code Status & VTE Plan Code Status Full code VTE Prophylaxis Plan VTE Prophylaxis will be ordered: Yes PG Care Time/CCT Total # of Minutes Spent Total Time Spent with Patient: Total time spent is greater than 50% in coordination of care (as documented) at patient's floor/unit and/or counseling patient: (1) COPD (chronic obstructive pulmonary disease) COPD type: unspecified COPD Qualified Code(s): J44.9 - Chronic obstructive pulmonary disease, unspecified (2) Hypertension Hypertension type: essential hypertension Qualified Code(s): I10 - Essential (primary) hypertension (3) Streptococcal sepsis Sepsis acute organ dysfunction status: unspecified Qualified Code(s): A40.9 - Streptococcal sepsis, unspecified
[2019-10-19] MEDS ORDERED: POLYETHYLENE (MIRALAX) 17 GM PACK PO PRN (23:50)
[2019-10-19] MEDS ORDERED: ONDANSETRON INJ 2 MG/ML 2 ML VIAL IV PRN (23:50)
[2019-10-19] MEDS ORDERED: ALUMINUM/MAGNESIUM SUSP 30 ML UDC PO PRN (23:50)
[2019-10-19] MEDS ORDERED: ACETAMINOPHEN 325 MG TAB PO PRN (23:50)
[2019-10-19] MEDS ORDERED: MAGNESIUM HYDROXIDE SUSP 30 ML UDC PO PRN (23:50)
[2019-10-19] MEDS ORDERED: CARBOHYDRATES FOR HYPOGLYCEMIA PO PRN (23:50)
[2019-10-19] MEDS ORDERED: GLUCOSE 40% GEL 15 GM TUBE PO PRN (23:50)
[2019-10-19] MEDS ORDERED: GLUCAGON FOR INJ 1 MG VIAL SQ PRN (23:50)
[2019-10-19] MEDS ORDERED: DEXTROSE 50% 50 ML SYRINGE IV PRN (23:50)
[2019-10-19] MEDS ORDERED: GLUCOSE 10 TABS/TUBE PO PRN (23:50)
[2019-10-19] MEDS ORDERED: ALBUTEROL HFA 8 GM INHALER INH PRN (23:50)
[2019-10-20] MEDS: HYDROCODONE/ACETAMOPHEN 5/325MG TAB PO PRN ×3 (00:47→16:10)
[2019-10-20] MEDS: AZTREONAM 1,000 MG in DEXTROSE 5% 100 ML IV SCH ×3 (00:52→15:52)
[2019-10-20] MEDS: GABAPENTIN 800 MG TAB PO SCH ×3 (01:00→20:12)
[2019-10-20] MEDS: DOCUSATE SODIUM 100 MG CAP PO SCH ×3 (01:01→20:12)
[2019-10-20] MEDS: cilostazoL 100 MG TAB PO SCH ×3 (01:01→20:13)
[2019-10-20] MEDS ORDERED: SODIUM CHLORIDE 0.9% 1000ML 500 ML IV ONE ×2 (01:57→10:39)
[2019-10-20] MEDS: DAPTOmycin 450 MG in SYRINGE 0 ML IV SCH (02:44)
[2019-10-20] MEDS: SODIUM CHLORIDE 0.9% 1000ML 1,000 ML IV SCH ×3 (02:50→21:09)
[2019-10-20 06:41] LABS: Basophils # (auto) 0.01 K/uL (0-0.2); Basophils % (auto) 0.2 %; Eosinophils # (auto) 0.15 K/uL (0-0.5); Eosinophils % (auto) 2.5 %; Hemoglobin 13.3 g/dL (14.0-18.0); Immature Granulocytes # (auto) 0.01 K/uL (0.00-0.02); Immature Granulocytes % (auto) 0.2 %; Lymphocytes # (auto) 1.33 K/uL (1.2-3.4); Lymphocytes % (auto) 21.8 %; Mean Corpuscular Hemoglobin 31.6 pg (25-34); Mean Corpuscular Hgb Conc 31.7 g/dL (32-36); Mean Corpuscular Volume 99.8 fL (80-100); Mean Platelet Volume 8.6 fL (7.4-10.4); Monocytes # (auto) 0.46 K/uL (0.11-0.59); Monocytes % (auto) 7.5 %; Neutrophils # (auto) 4.14 K/uL (1.4-6.5); Neutrophils % (auto) 67.8 %; Platelet Count 236 K/uL (130-400); RDW Coefficient of Variation 16.9 % (11.5-14.5); Red Blood Count 4.21 M/uL (4.7-6.1)
[2019-10-20 07:05] LABS: INR 3.4 (0.9-1.1); Partial Thromboplastin Ratio 1.9; Prothrombin Time 32.3 Seconds (9.0-12.0)
[2019-10-20 07:07] LABS: Estimated Average Glucose 105 mg/dl; Hemoglobin A1C 5.3 % (4.5-5.6)
[2019-10-20 07:17] LABS: Partial Thromboplastin Time 52.1 Seconds (21.0-31.0)
[2019-10-20 07:32] LABS: Albumin Level 3.2 gm/dl (3.4-5.0); BUN Creatinine Ratio 24.6 (10-20); Bilirubin,Total 0.2 mg/dl (0.2-1); Calcium 8.5 mg/dl (8.5-10.1); Est GFR (African American) 114.7; Globulin 3.4 gm/dl (2.5-4.0); Potassium 4.9 mmol/L (3.5-5.1); Total Protein 6.6 gm/dl (6.4-8.2)
[2019-10-20] MEDS: FERROUS SULFATE 325 MG TAB PO SCH ×2 (07:52→16:10)
[2019-10-20] MEDS: ASPIRIN 325 MG ECTAB PO SCH (07:53)
[2019-10-20] MEDS: INSULIN ASPART 100 UNITS/ML 3 ML PEN SC SCH ×5 (08:09→20:51)
[2019-10-20] MEDS ORDERED: lisinopriL 40 MG TAB PO SCH (09:00)
[2019-10-20 09:14] LABS: NT Pro B Type Natriuretic Pept 78 pg/ml (0-900); Troponin I < 0.015 ng/ml (0-0.045)
[2019-10-20] MEDS ORDERED: metroNIDAZOLE 500 MG/100 ML BAG IV SCH (09:15)
--- NOTE | 2019-10-20 09:55 | Consultation ---
Date of Consultation October 20, 2019 Assessment & Plan (1) Open wound anterior abdominal wall: Pt remains hypotensive and tachycardic at this time. Will place wound vac to L abd wound today. Pt also seen by Dr Alanis, recommends surgical debridement of abd wound and placement of wound vac in OR on Wednesday. Pt agreeable. Waffle boots to heels. History of Present Illness Reason for Consultation: hx multiple vasc procedures, PAD, L abd wound, R heel wound Attending Physician: Trevor Baez MD History of Present Illness 59 yo m with multiple medical problems, well known to Dr Alanis for severe PAD and multiple revascularization procedures, admitted with possible sepsis, seen in consultation today for L abd wound and R heel wound. Pt most recently underwent revision of ax bifemoral bypass with bovine graft and I &D of L abd infected wound in September [address] Alanis. On 10/03, pt was transferred to [facility] for occlusion of R limb of his new ax bifem bypass and underwent thrombectomy and [employer] of R limb. Pt called office yesterday c/o R heel/foot pain and was advised to go to [facility] ED for eval d/t concern for possibly occluded graft. INR 3.5. Pt noted to be hypotensive and tachycardic and was admitted for possible infection. Imaging of ax bifem BPG and BLE indicates patent bypasses, but poor distal flow to RLE, which has been chronic. Pt states he has a wound to his R heel which has become increasingly painful over past few weeks. Pt admits fatigue, malaise. Pt has been undergoing regular wound care to open wound L abdomen. Denies measured fever, chest pain, SOB, abd pain, N/V, other complaints. Allergies Allergy/AdvReac Type Severity Reaction Status Date / Time Penicillins Allergy Severe THROAT Verified 10/19/19 16:30 SWELLS AND HIVES Home Medications Home Medications Medication Instructions Recorded Confirmed Type Combivent Respimat 2 puff INHALATION QID PRN 05/01/19 10/19/19 History Jardiance 10 mg PO QAM 05/01/19 10/19/19 History Toujeo SoloStar U-300 Insulin 15 unit SUBCUT QPM 05/01/19 10/19/19 History Trulicity 0.75 mg SUBCUT SA 05/01/19 10/19/19 History albuterol sulfate 2 puff INHALATION QID PRN 05/01/19 10/19/19 History aspirin 325 mg PO QAM 05/01/19 10/19/19 History cilostazol 100 mg PO BID 05/01/19 10/19/19 History gabapentin [Neurontin] 800 mg PO BID 05/01/19 10/19/19 History lisinopril 40 mg PO QAM 05/01/19 10/19/19 History metformin 1,000 mg PO BID 05/01/19 10/19/19 History docusate sodium 100 mg PO BID #60 cap 08/01/19 10/19/19 Rx ferrous sulfate 325 mg PO BIDM #60 tab 08/01/19 10/19/19 Rx hydrocodone-acetaminophen [[place]] 1 tab PO Q6H PRN #30 tab 09/20/19 10/19/19 Rx levofloxacin 500 mg PO QAM 10/19/19 10/19/19 History sulfamethoxazole-trimethoprim 1 tab PO BID 10/19/19 10/19/19 History warfarin 5 mg PO QDD 10/19/19 10/19/19 History Patient History Medical History Arthritis Chronic back pain Chronic obstructive pulmonary disease Diabetes mellitus, type 2 Diabetic neuropathy, type II diabetes mellitus Diverticulitis (Resolved) History of transfusion Hypertension Neuropathy PVD (peripheral vascular disease) Sleep apnea CPAP HS SOB (shortness of breath) on exertion 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 PER PT LEFT LOWER EXTREMITY ANGIOGRAM, REVISION OF LEFT AXILLARY TO RIGHT FEMORAL BYPASS WITH INTERPOSITION OF BOVINE GRAFT: 07/21/19: Grade view 3, MAC#3, ETT 8 at [facility] History of bowel resection WITH COLOSTOMY/REVERSAL LATER History of right hip replacement S/P femoral-popliteal bypass surgery X 3-LEFT LEG (WOUND DEBRIDEMENT LEFT FOOT) Family History Mother Family history of diabetes mellitus Uncle Family history of diabetes mellitus Social History Preferred Language: Czech Communication Ability: Effective Cook Soup Required: No Beliefs That Will Affect Care: None marital status: Current Living Situation: Spouse Current Living Situation Comment: only Other Information That Helps Us Care for You: No Feels Safe at Home: Yes Smoking Status: Former smoker Tobacco Type: cigarettes ; Cigarettes Per Day: 16 ; Do You Dip or Chew Tobacco: No ; Second Hand Exposure: No ; Tobacco Cessation Education Requested by Patient: No Hx Alcohol Use: No Hx Substance Use: Yes substance use type: marijuana Last Used Substance: Unknown Review of Systems Review of Systems: All systems reviewed & are unremarkable except as noted in HPI & below Physical Exam Constitutional: WD/WN, vitals as above + ill appearing and cooperative; not in distress Eyes: PERRL, conjunctivae normal, anicteric sclerae ENMT: external ear and nose normal, oropharynx normal Ears: no hearing impairment Neck: trachea midline, no thyromegaly Respiratory: normal respiratory effort, lungs clear to auscultation Cardiovascular: Rate/Rhythm: regular rhythm and + tachycardic Vessels: femoral pulses present, posterior tibial pulses present (LLE palpable, RLE nonpalpable), dorsalis pedis pulses present (LLE palpable, RLE nonpalpable.), brachial pulses present and radial pulses present; + abnormal peripheral pulses Extremities: normal capillary refill Gastrointestinal (Abdomen): normal bowel sounds, soft, nontender, no hepatosplenomegaly Musculoskeletal: Extremities: strength 5/5 throughout Skin: + wound (L abd large open wound with tunnel to medial. + fibrin/slough) and + eschar (soft tissue presure area R heel, tender, mild erythema, not boggy, no odor ) Neurologic: moves all extremities; no focal motor deficits Psychiatric: A+Ox3, euthymic affect Results & Data Vital Signs (Past 12 Hours) Vital Signs Temp Pulse Resp BP BP Pulse Ox 10/20/19 08:49 99/65 L 10/20/19 07:30 36.9 C 111 H 20 76/41 L 81/51 L 90 10/20/19 04:11 36.2 C L 99 H 20 107/66 92 10/20/19 01:35 75 16 89/51 L 10/20/19 00:00 36.7 C 84 20 98/64 L 93 10/19/19 22:31 100 H 20 111/60 100
--- NOTE | 2019-10-20 12:28 | Electrocardiogram Report ---
Test Reason : Blood Pressure : / mmHG Vent. Rate : 086 BPM Atrial Rate : 086 BPM P-R Int : 166 ms QRS Dur : 080 ms QT Int : 340 ms P-R-T Axes : 023 137 072 degrees QTc Int : 406 ms Normal sinus rhythm Right axis deviation Low voltage QRS Poor R wave progression, consider anterior FL vs. lead placement vs. LVH Abnormal ECG When compared with ECG of 03-OCT-2019 13:13, Questionable change in initial forces of Septal leads Confirmed by Gilberto Figueroa ([id number]) on 10/20/2019 12:27:34 PM Referred By: REFERRED SELF Confirmed By:Gilberto Figueroa
--- NOTE | 2019-10-20 12:58 | Electrocardiogram Report ---
Test Reason : Blood Pressure : / mmHG Vent. Rate : 100 BPM Atrial Rate : 100 BPM P-R Int : 160 ms QRS Dur : 086 ms QT Int : 314 ms P-R-T Axes : 023 159 057 degrees QTc Int : 405 ms Normal sinus rhythm Right axis deviation Low voltage QRS Cannot rule out Anteroseptal infarct (cited on or before 06-JUN-2019) Abnormal ECG When compared with ECG of 19-OCT-2019 16:16, (unconfirmed) Questionable change in initial forces of Septal leads Confirmed by Gilberto Figueroa ([id number]) on 10/20/2019 12:57:25 PM Referred By: REFERRED SELF Confirmed By:Gilberto Figueroa
--- NOTE | 2019-10-20 13:56 | Hospitalist Progress Note ---
Date of Service October 20, 2019 Assessment & Plan (1) Sepsis: - Persistent hypotension noted since admission in setting of right foot infection and abd wall wound, has required multiple IV fluid boluses. - BP is now improved -- will continue NS at 125 cc/hr and bolus prn. - Lactic acid level 0.9; Procal <0.05. - U/a neg; blood cultures pending. - CT A/P showed small right groin fluid collection and left anterior wall fluid collection in setting of recent bypass graft; vascular surgery consulted. - On Dapto/Aztreonam/Flagyl for empiric coverage. (2) Acute hypotension: - As noted above; hold home anti-hypertensives. (3) Diabetic foot infection: - C/o severe right heel pain - related to osteomyelitis of heel vs. cellulitis vs. peripheral vascular disease. - ESR, CRP and Uric acid level all pending. - Pt. will eventually need MRI of right foot to rule out osteomyelitis -- plan for imaging over next 48 hours if BP is stable. - Continue Dapto/Aztreonam/Flagyl for empiric coverage due to h/o multi-organism infections. - Possibly related to neuropathy - continue home Gabapentin as prescribed. (4) Neuropathy: - Continue home Gabapentin as prescribed. (5) Peripheral arterial disease: - Arterial duplex: patent bypass graft to left posterior tibial artery and right limb of bifemoral graft patent to right common femoral artery. Occlusion of distal right common femoral and superficial femoral arteries, similar to Sep 2019. - Vascular consulted, appreciate input. - Continue ASA and Cilostazol as prescribed. - Hold home Coumadin (INR elevated, plan for procedure on Wed and due to med interaction with Flagyl). Monitor INR levels daily. (6) Deep postoperative wound infection: - Most recently s/p debridement of abd wall wound and revision of axillary-bifem bypass graft on 09/15/19. - Has deep wound infection with h/o hematoma and secondary wound dehiscence. - Wound care following, appreciate input. - Continue IV Dapto/Aztreonam/Flagyl. - Vascular consulted, placed wound vac today and plan for procedure on Wednesday. (7) Wound dehiscence: - As noted above. (8) Diabetes mellitus, type 2: - A1C is 5.3. - Holding home jardiance, metformin and trulicity. - SSI with Lantus 8 units qPM - BG has been well controlled. (9) Acute kidney injury superimposed on chronic kidney disease: - Creatinine 1.5 on admission, baseline 0.4-0.7 - Likely prerenal related to dehydration. - Improved with IV fluid hydration, continue IVF at 125 cc/hr. - Hold home ACEI. (10) COPD (chronic obstructive pulmonary disease): - Continue Combivent QID prn. - No acute flare noted. (11) Hypertension: - Holding home ACEI due to hypotension/ARF. (12) Enterococcal sepsis: - H/o, on empiric IV abx. - BP pending; u/a negative. (13) Streptococcal sepsis: - H/o, on broad spectrum abx. (14) Weakness: - Will need PT/OT evaluation following improvement in right heel pain. (15) DVT prophylaxis: - SCDs; hold Coumadin in setting of supratherapeutic INR. Dispo: Med/surg with tele; will need to re-consider upgrade to ICU for recurrent hypotension. Subjective Pt c/o right heel pain, has mild erythema at site of pain. Has open abd wound, no drainage currently noted. C/o feeling tired but is tolerating PO intake and alert/oriented x3. Was hypotensive this morning -- lactic acid and procal negative. He received multiple boluses of IV fluids, BP now stabilized. Curbsided ICU, no indication for upgrade. Review of Systems Review of Systems: All systems reviewed & are unremarkable except as noted in HPI & below Constitutional: + fatigue and + weakness; no fever, no chills and no anorexia Respiratory: no cough, no dyspnea and no dyspnea on exertion Cardiovascular: no chest pain, no palpitations and no edema Gastrointestinal: no abdominal pain, no nausea and no constipation Genitourinary: no difficulty urinating Musculoskeletal: + joint pain (Right heel); no back pain Integumentary: + non-healing lesions (Left lower abd ) and + erythema (Right heel) Physical Exam Physical Exam: General: Resting comfortably HEENT: NC/AT; PERRLA with EOMI; [place] conjunctiva, MMM. No erythema of posterior pharynx Neck: Supple and nontender; No JVD Cardiac: RRR Lungs: CTA bilaterally Abdomen: Bowel normoactive X 4; Nontender to palpation. LLQ with open wound, packing. Extremities: Warm. No edema present. Moderate erythema noted over right heel, tender to diffuse palpation. Neuro: No focal weakness Skin: see above Results & Data Vital Signs (Past 12 Hours) Vital Signs Temp Pulse Pulse Resp BP BP Pulse Ox 10/20/19 11:41 91 H 20 117/73 91 10/20/19 09:45 108 H 115/73 10/20/19 08:49 99/65 L 10/20/19 08:00 96 H 10/20/19 07:30 36.9 C 111 H 20 76/41 L 81/51 L 90 10/20/19 04:11 36.2 C L 99 H 20 107/66 92 Laboratory Results 10/20/19 10/20/19 10/20/19 Range/Units 12:10 08:45 08:45 WBC (4.8-10.8) K/uL RBC (4.7-6.1) M/uL Hgb (14.0-18.0) g/dL POC Hgb (14.0-18.0) g/dl Hct (42-52) % POC Hct (42-52) % MCV (80-100) fL MCH (25-34) pg MCHC (32-36) g/dL RDW Std Deviation (36.4-46.3) fL RDW Coeff of Maira (11.5-14.5) % Plt Count (130-400) K/uL MPV (7.4-10.4) fL Immature Gran % (Auto) % Neut % (Auto) % Lymph % (Auto) % Parker % (Auto) % Eos % (Auto) % Baso % (Auto) % Immature Gran # (Auto) (0.00-0.02) K/uL Neut # (Auto) (1.4-6.5) K/uL Lymph # (Auto) (1.2-3.4) K/uL Parker # (Auto) (0.11-0.59) K/uL Eos # (Auto) (0-0.5) K/uL Baso # (Auto) (0-0.2) K/uL PT (9.0-12.0) Seconds INR (0.9-1.1) APTT (21.0-31.0) Seconds PTT Ratio VBG pH (7.36-7.41) VBG pCO2 (38-50) mmHg VBG pO2 mmHg VBG HCO3 mmol/L VBG O2 Saturation % VBG Base Excess mEq/L Barometric Pressure mm/Hg POC Sodium (135-144) mEq/L Sodium (136-145) mmol/L POC Potassium (3.3-5.0) mEq/L Potassium (3.5-5.1) mmol/L POC Chloride (101-112) mEq/L Chloride (98-107) mmol/L Carbon Dioxide (21-32) mmol/L POC Total CO2 (24-31) mEq/l Anion Gap (3-11) POC Anion Gap (16-25) mmol/L POC BUN (7-18) mg/dl BUN (7-18) mg/dl Creatinine (0.6-1.4) mg/dl POC Creatinine (0.6-1.3) mg/dl Est Cr Clr Drug Dosing Est GFR ( Amer) Est GFR (Non-Af Amer) BUN/Creatinine Ratio (10-20) Glucose (70-99) mg/dl POC Glucose 136 H (70-99) POC Glucose (other) (70-99) mg/dl Estimat Average Glucose mg/dl Hemoglobin A1c (4.5-5.6) % Lactate (0.4-2.0) mmol/L Calcium (8.5-10.1) mg/dl POC Ioniz Calcium [place] (1.12-1.32) mmol/l Phosphorus (2.5-4.9) mg/dl Magnesium (1.8-2.4) mg/dl Total Bilirubin (0.2-1) mg/dl Direct Bilirubin (0-0.2) mg/dl AST (15-37) U/L ALT (12-78) U/L Alkaline Phosphatase (45-117) U/L Troponin I < 0.015 (0-0.045) ng/ml NT-Pro-B Natriuret Pep 78 (0-900) pg/ml Total Protein (6.4-8.2) gm/dl Albumin (3.4-5.0) gm/dl Globulin (2.5-4.0) gm/dl Albumin/Globulin Ratio (0.9-2) Procalcitonin (0-0.5) ng/ml Cortisol AM Sample 19.40 (4.3-22.4) mcg/dl Urine Color Urine Appearance (Clear) Urine pH (4.5-7.5) Ur Specific [place] (1.000-1.030) Urine Protein (Negative) Urine Glucose (UA) (Negative) Urine Ketones (Negative) Urine Blood (Negative) Urine Nitrite (Negative) Urine Bilirubin (Negative) Urine Urobilinogen (Negative) Ur Leukocyte Esterase (Negative) 10/20/19 10/20/19 10/20/19 Range/Units 08:41 08:38 06:29 WBC (4.8-10.8) K/uL RBC (4.7-6.1) M/uL Hgb (14.0-18.0) g/dL POC Hgb (14.0-18.0) g/dl Hct (42-52) % POC Hct (42-52) % MCV (80-100) fL MCH (25-34) pg MCHC (32-36) g/dL RDW Std Deviation (36.4-46.3) fL RDW Coeff of Maira (11.5-14.5) % Plt Count (130-400) K/uL MPV (7.4-10.4) fL Immature Gran % (Auto) % Neut % (Auto) % Lymph % (Auto) % Parker % (Auto) % Eos % (Auto) % Baso % (Auto) % Immature Gran # (Auto) (0.00-0.02) K/uL Neut # (Auto) (1.4-6.5) K/uL Lymph # (Auto) (1.2-3.4) K/uL Parker # (Auto) (0.11-0.59) K/uL Eos # (Auto) (0-0.5) K/uL Baso # (Auto) (0-0.2) K/uL PT (9.0-12.0) Seconds INR (0.9-1.1) APTT (21.0-31.0) Seconds PTT Ratio VBG pH (7.36-7.41) VBG pCO2 (38-50) mmHg VBG pO2 mmHg VBG HCO3 mmol/L VBG O2 Saturation % VBG Base Excess mEq/L Barometric Pressure mm/Hg POC Sodium (135-144) mEq/L Sodium (136-145) mmol/L POC Potassium (3.3-5.0) mEq/L Potassium (3.5-5.1) mmol/L POC Chloride (101-112) mEq/L Chloride (98-107) mmol/L Carbon Dioxide (21-32) mmol/L POC Total CO2 (24-31) mEq/l Anion Gap (3-11) POC Anion Gap (16-25) mmol/L POC BUN (7-18) mg/dl BUN (7-18) mg/dl Creatinine (0.6-1.4) mg/dl POC Creatinine (0.6-1.3) mg/dl Est Cr Clr Drug Dosing Est GFR ( Amer) Est GFR (Non-Af Amer) BUN/Creatinine Ratio (10-20) Glucose (70-99) mg/dl POC Glucose (70-99) POC Glucose (other) (70-99) mg/dl Estimat Average Glucose 105 mg/dl Hemoglobin A1c 5.3 (4.5-5.6) % Lactate 0.9 (0.4-2.0) mmol/L Calcium (8.5-10.1) mg/dl POC Ioniz Calcium [place] (1.12-1.32) mmol/l Phosphorus (2.5-4.9) mg/dl Magnesium (1.8-2.4) mg/dl Total Bilirubin (0.2-1) mg/dl Direct Bilirubin (0-0.2) mg/dl AST (15-37) U/L ALT (12-78) U/L Alkaline Phosphatase (45-117) U/L Troponin I (0-0.045) ng/ml NT-Pro-B Natriuret Pep (0-900) pg/ml Total Protein (6.4-8.2) gm/dl Albumin (3.4-5.0) gm/dl Globulin (2.5-4.0) gm/dl Albumin/Globulin Ratio (0.9-2) Procalcitonin < 0.05 (0-0.5) ng/ml Cortisol AM Sample (4.3-22.4) mcg/dl Urine Color Urine Appearance (Clear) Urine pH (4.5-7.5) Ur Specific [place] (1.000-1.030) Urine Protein (Negative) Urine Glucose (UA) (Negative) Urine Ketones (Negative) Urine Blood (Negative) Urine Nitrite (Negative) Urine Bilirubin (Negative) Urine Urobilinogen (Negative) Ur Leukocyte Esterase (Negative) 10/20/19 10/20/19 10/20/19 Range/Units 06:29 06:29 06:29 WBC 6.10 (4.8-10.8) K/uL RBC 4.21 L (4.7-6.1) M/uL Hgb 13.3 L (14.0-18.0) g/dL POC Hgb (14.0-18.0) g/dl Hct 42.0 (42-52) % POC Hct (42-52) % MCV 99.8 (80-100) fL MCH 31.6 (25-34) pg MCHC 31.7 L (32-36) g/dL RDW Std Deviation 62.0 H (36.4-46.3) fL RDW Coeff of Maira 16.9 H (11.5-14.5) % Plt Count 236 (130-400) K/uL MPV 8.6 (7.4-10.4) fL Immature Gran % (Auto) 0.2 % Neut % (Auto) 67.8 % Lymph % (Auto) 21.8 % Parker % (Auto) 7.5 % Eos % (Auto) 2.5 % Baso % (Auto) 0.2 % Immature Gran # (Auto) 0.01 (0.00-0.02) K/uL Neut # (Auto) 4.14 (1.4-6.5) K/uL Lymph # (Auto) 1.33 (1.2-3.4) K/uL Parker # (Auto) 0.46 (0.11-0.59) K/uL Eos # (Auto) 0.15 (0-0.5) K/uL Baso # (Auto) 0.01 (0-0.2) K/uL PT 32.3 H (9.0-12.0) Seconds INR 3.4 H (0.9-1.1) APTT 52.1 H* (21.0-31.0) Seconds PTT Ratio 1.9 VBG pH (7.36-7.41) VBG pCO2 (38-50) mmHg VBG pO2 mmHg VBG HCO3 mmol/L VBG O2 Saturation % VBG Base Excess mEq/L Barometric Pressure mm/Hg POC Sodium (135-144) mEq/L Sodium 140 D (136-145) mmol/L POC Potassium (3.3-5.0) mEq/L Potassium 4.9 (3.5-5.1) mmol/L POC Chloride (101-112) mEq/L Chloride 116 H (98-107) mmol/L Carbon Dioxide 20 L (21-32) mmol/L POC Total CO2 (24-31) mEq/l Anion Gap 5.0 (3-11) POC Anion Gap (16-25) mmol/L POC BUN (7-18) mg/dl BUN 19 H (7-18) mg/dl Creatinine 0.79 D (0.6-1.4) mg/dl POC Creatinine (0.6-1.3) mg/dl Est Cr Clr Drug Dosing 120.0 Est GFR ( Amer) 114.7 Est GFR (Non-Af Amer) 99.0 BUN/Creatinine Ratio 24.6 H (10-20) Glucose 102 H (70-99) mg/dl POC Glucose (70-99) POC Glucose (other) (70-99) mg/dl Estimat Average Glucose mg/dl Hemoglobin A1c (4.5-5.6) % Lactate (0.4-2.0) mmol/L Calcium 8.5 (8.5-10.1) mg/dl POC Ioniz Calcium [place] (1.12-1.32) mmol/l Phosphorus (2.5-4.9) mg/dl Magnesium (1.8-2.4) mg/dl Total Bilirubin 0.2 (0.2-1) mg/dl Direct Bilirubin (0-0.2) mg/dl AST 6 L (15-37) U/L ALT 11 L (12-78) U/L Alkaline Phosphatase 58 (45-117) U/L Troponin I (0-0.045) ng/ml NT-Pro-B Natriuret Pep (0-900) pg/ml Total Protein 6.6 (6.4-8.2) gm/dl Albumin 3.2 L (3.4-5.0) gm/dl Globulin 3.4 (2.5-4.0) gm/dl Albumin/Globulin Ratio 1.0 (0.9-2) Procalcitonin (0-0.5) ng/ml Cortisol AM Sample (4.3-22.4) mcg/dl Urine Color Urine Appearance (Clear) Urine pH (4.5-7.5) Ur Specific [place] (1.000-1.030) Urine Protein (Negative) Urine Glucose (UA) (Negative) Urine Ketones (Negative) Urine Blood (Negative) Urine Nitrite (Negative) Urine Bilirubin (Negative) Urine Urobilinogen (Negative) Ur Leukocyte Esterase (Negative) 10/20/19 10/19/19 10/19/19 Range/Units 00:24 19:30 16:30 WBC (4.8-10.8) K/uL RBC (4.7-6.1) M/uL Hgb (14.0-18.0) g/dL POC Hgb (14.0-18.0) g/dl Hct (42-52) % POC Hct (42-52) % MCV (80-100) fL MCH (25-34) pg MCHC (32-36) g/dL RDW Std Deviation (36.4-46.3) fL RDW Coeff of Maiar (11.5-14.5) % Plt Count (130-400) K/uL MPV (7.4-10.4) fL Immature Gran % (Auto) % Neut % (Auto) % Lymph % (Auto) % [place] % (Auto) % Eos % (Auto) % Baso % (Auto) % Immature Gran # (Auto) (0.00-0.02) K/uL Neut # (Auto) (1.4-6.5) K/uL Lymph # (Auto) (1.2-3.4) K/uL [place] # (Auto) (0.11-0.59) K/uL Eos # (Auto) (0-0.5) K/uL Baso # (Auto) (0-0.2) K/uL PT (9.0-12.0) Seconds INR (0.9-1.1) APTT (21.0-31.0) Seconds PTT Ratio VBG pH 7.26 L (7.36-7.41) VBG pCO2 51 H (38-50) mmHg VBG pO2 25 mmHg VBG HCO3 23 mmol/L VBG O2 Saturation < 60.0 % VBG Base Excess -4.8 mEq/L Barometric Pressure 745.2 mm/Hg POC Sodium (135-144) mEq/L Sodium (136-145) mmol/L POC Potassium (3.3-5.0) mEq/L Potassium (3.5-5.1) mmol/L POC Chloride (101-112) mEq/L Chloride (98-107) mmol/L Carbon Dioxide (21-32) mmol/L POC Total CO2 (24-31) mEq/l Anion Gap (3-11) POC Anion Gap (16-25) mmol/L POC BUN (7-18) mg/dl BUN (7-18) mg/dl Creatinine (0.6-1.4) mg/dl POC Creatinine (0.6-1.3) mg/dl Est Cr Clr Drug Dosing Est GFR ( Amer) Est GFR (Non-Af Amer) BUN/Creatinine Ratio (10-20) Glucose (70-99) mg/dl POC Glucose (70-99) POC Glucose (other) (70-99) mg/dl Estimat Average Glucose mg/dl Hemoglobin A1c (4.5-5.6) % Lactate (0.4-2.0) mmol/L Calcium (8.5-10.1) mg/dl POC Ioniz Calcium [place] (1.12-1.32) mmol/l Phosphorus (2.5-4.9) mg/dl Magnesium 2.4 (1.8-2.4) mg/dl Total Bilirubin (0.2-1) mg/dl Direct Bilirubin (0-0.2) mg/dl AST (15-37) U/L ALT (12-78) U/L Alkaline Phosphatase (45-117) U/L Troponin I (0-0.045) ng/ml NT-Pro-B Natriuret Pep (0-900) pg/ml Total Protein (6.4-8.2) gm/dl Albumin (3.4-5.0) gm/dl Globulin (2.5-4.0) gm/dl Albumin/Globulin Ratio (0.9-2) Procalcitonin (0-0.5) ng/ml Cortisol AM Sample (4.3-22.4) mcg/dl Urine Color Yellow Urine Appearance Clear (Clear) Urine pH 5.0 (4.5-7.5) Ur Specific [place] 1.022 (1.000-1.030) Urine Protein Negative (Negative) Urine Glucose (UA) 3+ H (Negative) Urine Ketones Negative (Negative) Urine Blood Negative (Negative) Urine Nitrite Negative (Negative) Urine Bilirubin Negative (Negative) Urine Urobilinogen Negative (Negative) Ur Leukocyte Esterase Negative (Negative) 10/19/19 10/19/19 10/19/19 Range/Units 16:30 16:17 15:50 WBC (4.8-10.8) K/uL RBC (4.7-6.1) M/uL Hgb (14.0-18.0) g/dL POC Hgb 15.0 (14.0-18.0) g/dl Hct (42-52) % POC Hct 44 (42-52) % MCV (80-100) fL MCH (25-34) pg MCHC (32-36) g/dL RDW Std Deviation (36.4-46.3) fL RDW Coeff of Maira (11.5-14.5) % Plt Count (130-400) K/uL MPV (7.4-10.4) fL Immature Gran % (Auto) % Neut % (Auto) % Lymph % (Auto) % Parker % (Auto) % Eos % (Auto) % Baso % (Auto) % Immature Gran # (Auto) (0.00-0.02) K/uL Neut # (Auto) (1.4-6.5) K/uL Lymph # (Auto) (1.2-3.4) K/uL Parker # (Auto) (0.11-0.59) K/uL Eos # (Auto) (0-0.5) K/uL Baso # (Auto) (0-0.2) K/uL PT (9.0-12.0) Seconds INR (0.9-1.1) APTT (21.0-31.0) Seconds PTT Ratio VBG pH (7.36-7.41) VBG pCO2 (38-50) mmHg VBG pO2 mmHg VBG HCO3 mmol/L VBG O2 Saturation % VBG Base Excess mEq/L Barometric Pressure mm/Hg POC Sodium 133 L (135-144) mEq/L Sodium 133 L (136-145) mmol/L POC Potassium 5.0 (3.3-5.0) mEq/L Potassium 5.0 (3.5-5.1) mmol/L POC Chloride 101 (101-112) mEq/L Chloride 102 (98-107) mmol/L Carbon Dioxide 24 (21-32) mmol/L POC Total CO2 24 (24-31) mEq/l Anion Gap 7.0 (3-11) POC Anion Gap 14.0 L (16-25) mmol/L POC BUN 34 H (7-18) mg/dl BUN 34 H (7-18) mg/dl Creatinine 1.54 H (0.6-1.4) mg/dl POC Creatinine 1.5 H (0.6-1.3) mg/dl Est Cr Clr Drug Dosing Not Reportable Est GFR ( Amer) 56.8 Est GFR (Non-Af Amer) 49.0 BUN/Creatinine Ratio 21.8 H (10-20) Glucose 119 H (70-99) mg/dl POC Glucose (70-99) POC Glucose (other) 117 H (70-99) mg/dl Estimat Average Glucose mg/dl Hemoglobin A1c (4.5-5.6) % Lactate 1.9 (0.4-2.0) mmol/L Calcium 8.6 (8.5-10.1) mg/dl POC Ioniz Calcium [place] 1.17 (1.12-1.32) mmol/l Phosphorus 4.8 (2.5-4.9) mg/dl Magnesium 2.4 (1.8-2.4) mg/dl Total Bilirubin 0.2 (0.2-1) mg/dl Direct Bilirubin < 0.1 (0-0.2) mg/dl AST 4 L (15-37) U/L ALT 15 (12-78) U/L Alkaline Phosphatase 62 (45-117) U/L Troponin I < 0.015 (0-0.045) ng/ml NT-Pro-B Natriuret Pep (0-900) pg/ml Total Protein 7.4 (6.4-8.2) gm/dl Albumin 3.6 (3.4-5.0) gm/dl Globulin 3.8 (2.5-4.0) gm/dl Albumin/Globulin Ratio 0.9 (0.9-2) Procalcitonin (0-0.5) ng/ml Cortisol AM Sample (4.3-22.4) mcg/dl Urine Color Urine Appearance (Clear) Urine pH (4.5-7.5) Ur Specific [place] (1.000-1.030) Urine Protein (Negative) Urine Glucose (UA) (Negative) Urine Ketones (Negative) Urine Blood (Negative) Urine Nitrite (Negative) Urine Bilirubin (Negative) Urine Urobilinogen (Negative) Ur Leukocyte Esterase (Negative) 10/19/19 10/19/19 Range/Units 15:50 15:50 WBC 8.88 (4.8-10.8) K/uL RBC 4.46 L (4.7-6.1) M/uL Hgb 14.2 (14.0-18.0) g/dL POC Hgb (14.0-18.0) g/dl Hct 44.2 (42-52) % POC Hct (42-52) % MCV 99.1 (80-100) fL MCH 31.8 (25-34) pg MCHC 32.1 (32-36) g/dL RDW Std Deviation 61.7 H (36.4-46.3) fL RDW Coeff of Maira 16.8 H (11.5-14.5) % Plt Count 269 (130-400) K/uL MPV 8.6 (7.4-10.4) fL Immature Gran % (Auto) 0.3 % Neut % (Auto) 74.7 % Lymph % (Auto) 16.0 % Parker % (Auto) 7.5 % Eos % (Auto) 1.4 % Baso % (Auto) 0.1 % Immature Gran # (Auto) 0.03 H (0.00-0.02) K/uL Neut # (Auto) 6.63 H (1.4-6.5) K/uL Lymph # (Auto) 1.42 (1.2-3.4) K/uL Parker # (Auto) 0.67 H (0.11-0.59) K/uL Eos # (Auto) 0.12 (0-0.5) K/uL Baso # (Auto) 0.01 (0-0.2) K/uL PT 33.9 H (9.0-12.0) Seconds INR 3.6 H (0.9-1.1) APTT 44.7 H (21.0-31.0) Seconds PTT Ratio 1.6 VBG pH (7.36-7.41) VBG pCO2 (38-50) mmHg VBG pO2 mmHg VBG HCO3 mmol/L VBG O2 Saturation % VBG Base Excess mEq/L Barometric Pressure mm/Hg POC Sodium (135-144) mEq/L Sodium (136-145) mmol/L POC Potassium (3.3-5.0) mEq/L Potassium (3.5-5.1) mmol/L POC Chloride (101-112) mEq/L Chloride (98-107) mmol/L Carbon Dioxide (21-32) mmol/L POC Total CO2 (24-31) mEq/l Anion Gap (3-11) POC Anion Gap (16-25) mmol/L POC BUN (7-18) mg/dl BUN (7-18) mg/dl Creatinine (0.6-1.4) mg/dl POC Creatinine (0.6-1.3) mg/dl Est Cr Clr Drug Dosing Est GFR ( Amer) Est GFR (Non-Af Amer) BUN/Creatinine Ratio (10-20) Glucose (70-99) mg/dl POC Glucose (70-99) POC Glucose (other) (70-99) mg/dl Estimat Average Glucose mg/dl Hemoglobin A1c (4.5-5.6) % Lactate (0.4-2.0) mmol/L Calcium (8.5-10.1) mg/dl POC Ioniz Calcium [place] (1.12-1.32) mmol/l Phosphorus (2.5-4.9) mg/dl Magnesium (1.8-2.4) mg/dl Total Bilirubin (0.2-1) mg/dl Direct Bilirubin (0-0.2) mg/dl AST (15-37) U/L ALT (12-78) U/L Alkaline Phosphatase (45-117) U/L Troponin I (0-0.045) ng/ml NT-Pro-B Natriuret Pep (0-900) pg/ml Total Protein (6.4-8.2) gm/dl Albumin (3.4-5.0) gm/dl Globulin (2.5-4.0) gm/dl Albumin/Globulin Ratio (0.9-2) Procalcitonin (0-0.5) ng/ml Cortisol AM Sample (4.3-22.4) mcg/dl Urine Color Urine Appearance (Clear) Urine pH (4.5-7.5) Ur Specific [place] (1.000-1.030) Urine Protein (Negative) Urine Glucose (UA) (Negative) Urine Ketones (Negative) Urine Blood (Negative) Urine Nitrite (Negative) Urine Bilirubin (Negative) Urine Urobilinogen (Negative) Ur Leukocyte Esterase (Negative) PG Care Time/CCT Total # of Minutes Spent Total Time Spent with Patient: Total time spent is greater than 50% in coordination of care (as documented) at patient's floor/unit and/or counseling patient: (1) Streptococcal sepsis Sepsis acute organ dysfunction status: unspecified Qualified Code(s): A40.9 - Streptococcal sepsis, unspecified (2) COPD (chronic obstructive pulmonary disease) COPD type: unspecified COPD Qualified Code(s): J44.9 - Chronic obstructive pulmonary disease, unspecified (3) Hypertension Hypertension type: essential hypertension Qualified Code(s): I10 - Essential (primary) hypertension
[2019-10-20 14:42] LABS: C Reactive Protein 1.72 mg/dl (0-0.29); Uric Acid 6.7 mg/dl (2.6-7.2)
[2019-10-20] MEDS: metroNIDAZOLE 500 MG/100 ML BAG IV SCH (17:13)
[2019-10-20] MEDS: NICOTINE 21 MG/24 HR TDSY TD SCH (17:19)
[2019-10-20] MEDS ORDERED: MoRPHine SULFATE 2 MG/ML CARP ONE (21:06)
[2019-10-20] MEDS: INSULIN GLARGINE SOLOSTAR 100 UNITS/ML 3 ML PEN SC SCH (21:07)
[2019-10-21] MEDS: AZTREONAM 1,000 MG in DEXTROSE 5% 100 ML IV SCH ×4 (01:06→23:40)
[2019-10-21] MEDS: DAPTOmycin 450 MG in SYRINGE 0 ML IV SCH (02:09)
[2019-10-21] MEDS: metroNIDAZOLE 500 MG/100 ML BAG IV SCH ×3 (02:09→17:51)
[2019-10-21] MEDS: SODIUM CHLORIDE 0.9% 1000ML 1,000 ML IV SCH ×3 (06:09→19:50)
[2019-10-21 07:12] LABS: Basophils # (auto) 0.03 K/uL (0-0.2); Basophils % (auto) 0.4 %; Eosinophils # (auto) 0.11 K/uL (0-0.5); Eosinophils % (auto) 1.4 %; Hemoglobin 14.1 g/dL (14.0-18.0); Immature Granulocytes # (auto) 0.02 K/uL (0.00-0.02); Immature Granulocytes % (auto) 0.2 %; Lymphocytes # (auto) 1.35 K/uL (1.2-3.4); Lymphocytes % (auto) 16.8 %; Mean Corpuscular Hemoglobin 31.8 pg (25-34); Mean Corpuscular Hgb Conc 32.8 g/dL (32-36); Mean Corpuscular Volume 96.8 fL (80-100); Mean Platelet Volume 8.3 fL (7.4-10.4); Monocytes % (auto) 6.2 %; Neutrophils # (auto) 6.03 K/uL (1.4-6.5); Platelet Count 249 K/uL (130-400); RDW Coefficient of Variation 15.8 % (11.5-14.5); RDW Standard Deviation 56.8 fL (36.4-46.3); Red Blood Count 4.44 M/uL (4.7-6.1); White Blood Count 8.04 K/uL (4.8-10.8)
[2019-10-21 07:28] LABS: INR 2.1 (0.9-1.1)
[2019-10-21 07:51] LABS: Albumin Globulin Ratio 0.9 (0.9-2); Albumin Level 3.3 gm/dl (3.4-5.0); BUN Creatinine Ratio 21.6 (10-20); Bilirubin,Total 0.3 mg/dl (0.2-1); Calcium 8.8 mg/dl (8.5-10.1); Creatinine Clr Calc Pharmacy 162.3 ml/min; Est GFR (African American) 130.3; Est GFR (Non-African American) 112.4; Globulin 3.7 gm/dl (2.5-4.0); Potassium 4.3 mmol/L (3.5-5.1); RBC Morphology Unremarkable
[2019-10-21] MEDS: ASPIRIN 325 MG ECTAB PO SCH (07:56)
[2019-10-21] MEDS: DOCUSATE SODIUM 100 MG CAP PO SCH ×2 (07:56→21:24)
[2019-10-21] MEDS: FERROUS SULFATE 325 MG TAB PO SCH ×2 (07:56→17:50)
[2019-10-21] MEDS: GABAPENTIN 800 MG TAB PO SCH ×2 (07:57→21:35)
[2019-10-21] MEDS: NICOTINE 21 MG/24 HR TDSY TD SCH (07:58)
[2019-10-21] MEDS: cilostazoL 100 MG TAB PO SCH ×2 (07:58→21:35)
[2019-10-21] MEDS: HYDROCODONE/ACETAMOPHEN 5/325MG TAB PO PRN ×3 (08:12→19:33)
[2019-10-21] MEDS: INSULIN ASPART 100 UNITS/ML 3 ML PEN SC SCH ×4 (09:29→21:53)
[2019-10-21] MEDS: IPRATROPIUM BROMIDE/ALBUTEROL respimat INH INH PRN (09:54)
--- NOTE | 2019-10-21 10:49 | Hospitalist Progress Note ---
Date of Service October 21, 2019 Assessment & Plan (1) Sepsis: - Persistent hypotension on 10/20 in setting of right foot infection and abd wall wound; now improved. - Decrease IV fluids to 80 cc/hr. - Lactic acid level 0.9; Procal <0.05. - U/a neg; blood cultures negative (prelim) - CT A/P showed small right groin fluid collection and left anterior wall fluid collection in setting of recent bypass graft; vascular surgery consulted. - On Dapto/Aztreonam/Flagyl for empiric coverage. (2) Acute hypotension: - As noted above; holding home anti-hypertensive. (3) Bone infarct: - C/o severe right heel pain - possibly related to bony infarcts noted on MRI. - MRI showed multiple patchy areas mostly within distal tibia, fibula and posterior calcaneus -- possibly related to multifocal infarcts. No evidence of osteomyelitis. - Bony infarcts may be related to peripheral vascular disease vs. septic emboli vs. other. - Will consult orthopedics for evaluation. - Continue IV abx for coverage of infection. (4) Foot ulcer: - MRI showed 2 cm focal skin ulceration on right posterior heel; diabetic foot ulcer. - Continue wound care with optifoam dressing changes daily. - MRI was negative for osteomyelitis but did show ryan infarcts. - Continue Dapto/Aztreonam/Flagyl for empiric coverage. (5) Neuropathy: - Continue home Gabapentin as prescribed. (6) Peripheral arterial disease: - Arterial duplex: patent bypass graft to left posterior tibial artery and right limb of bifemoral graft patent to right common femoral artery. Occlusion of distal right common femoral and superficial femoral arteries, similar to Sep 2019. - Vascular consulted, appreciate input. - Continue ASA and Cilostazol as prescribed. - Holding home Coumadin (INR improved to 2.1 today; plan for procedure on Wed; also interacts with Flagyl). Monitor INR levels daily. (7) Deep postoperative wound infection: - Most recently s/p debridement of abd wall wound and revision of axillary-bifem bypass graft on 09/15/19. - Has deep wound infection with h/o hematoma and secondary wound dehiscence. - Wound care following, appreciate input. - Continue IV Dapto/Aztreonam/Flagyl. - Vascular consulted, placed wound vac and plan for procedure on Wednesday. (8) Wound dehiscence: - As noted above. (9) Diabetes mellitus, type 2: - A1C is 5.3. - Holding home jardiance, metformin and trulicity. - SSI with Lantus 8 units qPM - BG well controlled. (10) Acute kidney injury superimposed on chronic kidney disease: - Creatinine 1.5 on admission, baseline 0.4-0.7 - Likely prerenal related to dehydration. - Improved with IV fluid hydration, continue IV fluids at 80 cc/hr. - Holding home ACEI. (11) COPD (chronic obstructive pulmonary disease): - Continue Combivent QID prn. - No acute flare noted. (12) Hypertension: - Holding home ACEI due to hypotension/ARF. (13) Enterococcal sepsis: - H/o, on empiric IV abx. - BC negative (prelim) (14) Streptococcal sepsis: - H/o, on broad spectrum abx. (15) Weakness: - Will need PT/OT evaluation following improvement in right heel pain. (16) Tobacco abuse: - Nicotine patch ordered. - Encourage complete tobacco cessation in setting of multiple co-morbidities. (17) DVT prophylaxis: - SCDs; holding Coumadin in setting of planned procedure. Dispo: Med/surg with tele. Plan for vascular intervention on Wednesday10/23/19. Subjective Pt. c/o ongoing right heel pain today -- rates pain as a 9/10 on pain scale. Will obtain ankle MRI to rule out osteomyelitis. BP has been stable over last 18 hours, will decrease IV fluids to 80 cc/hr. Wound vac in place, tolerating well. Denies chest pain, SOB, N/V, loss of appetite. Review of Systems Review of Systems: All systems reviewed & are unremarkable except as noted in HPI & below Constitutional: + fatigue and + weakness; no fever, no chills and no anorexia Respiratory: no cough, no dyspnea and no dyspnea on exertion Cardiovascular: no chest pain, no palpitations and no edema Gastrointestinal: no abdominal pain, no nausea, no vomiting and no con stipation Genitourinary: no difficulty urinating Musculoskeletal: + joint pain (Right heel ); no back pain Integumentary: + erythema (of right heel ); no skin ulcer Physical Exam Physical Exam: General: Resting comfortably HEENT: NC/AT; PERRLA with EOMI; [place] conjunctiva, MMM. No erythema of posterior pharynx Neck: Supple and nontender Cardiac: RRR Lungs: CTA bilaterally Abdomen: Bowel normoactive X 4; Nontender to palpation. LLQ wound with wound vac, no erythema noted. Extremities: Warm. Mild erythema noted over right heel, tender to palpation. Neuro: No focal weakness Skin: see above Results & Data Vital Signs (Past 12 Hours) Vital Signs Temp Pulse Resp BP Pulse Ox 10/21/19 04:09 36.5 C 64 18 119/59 L 93 10/20/19 23:31 36.6 C 89 18 112/70 93 Laboratory Results 10/21/19 10/21/19 10/21/19 Range/Units 07:47 06:49 06:49 WBC (4.8-10.8) K/uL RBC (4.7-6.1) M/uL Hgb (14.0-18.0) g/dL Hct (42-52) % MCV (80-100) fL MCH (25-34) pg MCHC (32-36) g/dL RDW Std Deviation (36.4-46.3) fL RDW Coeff of Maira (11.5-14.5) % Plt Count (130-400) K/uL MPV (7.4-10.4) fL Immature Gran % (Auto) % Neut % (Auto) % Lymph % (Auto) % [place] % (Auto) % Eos % (Auto) % Baso % (Auto) % Immature Gran # (Auto) (0.00-0.02) K/uL Neut # (Auto) (1.4-6.5) K/uL Lymph # (Auto) (1.2-3.4) K/uL [place] # (Auto) (0.11-0.59) K/uL Eos # (Auto) (0-0.5) K/uL Baso # (Auto) (0-0.2) K/uL RBC Morphology ESR (0-14) mm/hr PT 20.0 H (9.0-12.0) Seconds INR 2.1 H (0.9-1.1) Sodium 139 (136-145) mmol/L Potassium 4.3 (3.5-5.1) mmol/L Chloride 111 H (98-107) mmol/L Carbon Dioxide 23 (21-32) mmol/L Anion Gap 5.0 (3-11) BUN 13 (7-18) mg/dl Creatinine 0.58 L (0.6-1.4) mg/dl Est Cr Clr Drug Dosing 162.3 ml/min Est GFR ( Amer) 130.3 Est GFR (Non-Af Amer) 112.4 BUN/Creatinine Ratio 21.6 H (10-20) Glucose 107 H (70-99) mg/dl POC Glucose 116 H (70-99) Uric Acid (2.6-7.2) mg/dl Calcium 8.8 (8.5-10.1) mg/dl Total Bilirubin 0.3 (0.2-1) mg/dl AST 11 L (15-37) U/L ALT 16 (12-78) U/L Alkaline Phosphatase 60 (45-117) U/L C-Reactive Protein (0-0.29) mg/dl Total Protein 7.0 (6.4-8.2) gm/dl Albumin 3.3 L (3.4-5.0) gm/dl Globulin 3.7 (2.5-4.0) gm/dl Albumin/Globulin Ratio 0.9 (0.9-2) 10/21/19 10/20/19 10/20/19 Range/Units 06:49 20:15 16:23 WBC 8.04 (4.8-10.8) K/uL RBC 4.44 L (4.7-6.1) M/uL Hgb 14.1 (14.0-18.0) g/dL Hct 43.0 (42-52) % MCV 96.8 (80-100) fL MCH 31.8 (25-34) pg MCHC 32.8 (32-36) g/dL RDW Std Deviation 56.8 H (36.4-46.3) fL RDW Coeff of Maira 15.8 H (11.5-14.5) % Plt Count 249 (130-400) K/uL MPV 8.3 (7.4-10.4) fL Immature Gran % (Auto) 0.2 % Neut % (Auto) 75.0 % Lymph % (Auto) 16.8 % [place] % (Auto) 6.2 % Eos % (Auto) 1.4 % Baso % (Auto) 0.4 % Immature Gran # (Auto) 0.02 (0.00-0.02) K/uL Neut # (Auto) 6.03 (1.4-6.5) K/uL Lymph # (Auto) 1.35 (1.2-3.4) K/uL [place] # (Auto) 0.50 (0.11-0.59) K/uL Eos # (Auto) 0.11 (0-0.5) K/uL Baso # (Auto) 0.03 (0-0.2) K/uL RBC Morphology Unremarkable ESR (0-14) mm/hr PT (9.0-12.0) Seconds INR (0.9-1.1) Sodium (136-145) mmol/L Potassium (3.5-5.1) mmol/L Chloride (98-107) mmol/L Carbon Dioxide (21-32) mmol/L Anion Gap (3-11) BUN (7-18) mg/dl Creatinine (0.6-1.4) mg/dl Est Cr Clr Drug Dosing ml/min Est GFR ( Amer) Est GFR (Non-Af Amer) BUN/Creatinine Ratio (-20) Glucose (70-99) mg/dl POC Glucose 120 H 142 H (70-99) Uric Acid (2.6-7.2) mg/dl Calcium (8.5-10.1) mg/dl Total Bilirubin (0.2-1) mg/dl AST (15-37) U/L ALT (12-78) U/L Alkaline Phosphatase (45-117) U/L C-Reactive Protein (0-0.29) mg/dl Total Protein (6.4-8.2) gm/dl Albumin (3.4-5.0) gm/dl Globulin (2.5-4.0) gm/dl Albumin/Globulin Ratio (0.9-2) 10/20/19 10/20/19 10/20/19 Range/Units 14:13 14:13 12:10 WBC (4.8-10.8) K/uL RBC (4.7-6.1) M/uL Hgb (14.0-18.0) g/dL Hct (42-52) % MCV (80-100) fL MCH (25-34) pg MCHC (32-36) g/dL RDW Std Deviation (36.4-46.3) fL RDW Coeff of Maira (11.5-14.5) % Plt Count (130-400) K/uL MPV (7.4-10.4) fL Immature Gran % (Auto) % Neut % (Auto) % Lymph % (Auto) % [place] % (Auto) % Eos % (Auto) % Baso % (Auto) % Immature Gran # (Auto) (0.00-0.02) K/uL Neut # (Auto) (1.4-6.5) K/uL Lymph # (Auto) (1.2-3.4) K/uL [place] # (Auto) (0.11-0.59) K/uL Eos # (Auto) (0-0.5) K/uL Baso # (Auto) (0-0.2) K/uL RBC Morphology ESR 26 H (0-14) mm/hr PT (9.0-12.0) Seconds INR (0.9-1.1) Sodium (136-145) mmol/L Potassium (3.5-5.1) mmol/L Chloride (98-107) mmol/L Carbon Dioxide (21-32) mmol/L Anion Gap (3-11) BUN (7-18) mg/dl Creatinine (0.6-1.4) mg/dl Est Cr Clr Drug Dosing ml/min Est GFR ( Amer) Est GFR (Non-Af Amer) BUN/Creatinine Ratio (10-20) Glucose (70-99) mg/dl POC Glucose 136 H (70-99) Uric Acid 6.7 (2.6-7.2) mg/dl Calcium (8.5-10.1) mg/dl Total Bilirubin (0.2-1) mg/dl AST (15-37) U/L ALT (12-78) U/L Alkaline Phosphatase (45-117) U/L C-Reactive Protein 1.72 H (0-0.29) mg/dl Total Protein (6.4-8.2) gm/dl Albumin (3.4-5.0) gm/dl Globulin (2.5-4.0) gm/dl Albumin/Globulin Ratio (0.9-2) PG Care Time/CCT Total # of Minutes Spent Total Time Spent with Patient: Total time spent is greater than 50% in coordination of care (as documented) at patient's floor/unit and/or counseling patient: (1) Streptococcal sepsis Sepsis acute organ dysfunction status: unspecified Qualified Code(s): A40.9 - Streptococcal sepsis, unspecified (2) COPD (chronic obstructive pulmonary disease) COPD type: unspecified COPD Qualified Code(s): J44.9 - Chronic obstructive pulmonary disease, unspecified (3) Hypertension Hypertension type: essential hypertension Qualified Code(s): I10 - Essential (primary) hypertension
[2019-10-21] MEDS ORDERED: GADOBUTROL 30ML VIAL IV PRN (13:10)
--- NOTE | 2019-10-21 14:47 | Magnetic Resonance Report ---
MR ankle RT wo/w con HISTORY: Right heel pain, rule out osteomyelitis TECHNIQUE: Multiplanar multisequence MRI of the right ankle/hindfoot was performed both before and af ter the intravenous administration of contrast. COMPARISON STUDY: None. FINDINGS: There is a 2 cm focal skin ulceration within the posterior heel. Multiple patchy and serpig inous areas of signal abnormality seen throughout the visualized osseous structures of the ankle/hind foot. This most pronounced within the distal tibia, fibula, and posterior calcaneus. These areas also demonstrate enhancement. The appearance favors multifocal bone infarcts. No cortical obstruction or erosive change to suggest an osteomyelitis. The flexor, extensor, and Achilles tendons are intact. Mi ld cartilage thinning at the tibiotalar joint. The sinus tarsi is intact. The plantar fascia is withi n normal limits. IMPRESSION: 1. 2 cm focal skin ulceration within the posterior heel. 2. Multiple patchy and serpiginous areas of signal abnormality seen throughout the visualized osseous structures of the ankle/hindfoot. This most pronounced within the distal tibia, fibula, and posterio r calcaneus. These areas also demonstrate enhancement. The appearance favors multifocal bone infarcts . No cortical obstruction or erosive change to suggest an osteomyelitis. Consider follow-up exam if t he patient's symptoms continue to progress to exclude the less likely possibility of an underlying in fectious process. ACT 112: Negative or not required by law. Electronically signed by: Manjeet Casas M.D. 10/21/2019 2:46 PM
[2019-10-21] MEDS: MoRPHine SULFATE 2 MG/ML CARP IV PRN ×4 (15:54→23:40)
[2019-10-21] MEDS: INSULIN GLARGINE SOLOSTAR 100 UNITS/ML 3 ML PEN SC SCH (21:34)
[2019-10-22] MEDS: metroNIDAZOLE 500 MG/100 ML BAG IV SCH ×3 (01:27→16:58)
[2019-10-22] MEDS: MoRPHine SULFATE 2 MG/ML CARP IV PRN (01:28)
[2019-10-22] MEDS: HYDROCODONE/ACETAMOPHEN 5/325MG TAB PO PRN ×2 (01:28→14:26)
[2019-10-22] MEDS: SODIUM CHLORIDE 0.9% 1000ML 1,000 ML IV SCH (03:26)
[2019-10-22] MEDS: DAPTOmycin 450 MG in SYRINGE 0 ML IV SCH (03:39)
[2019-10-22] MEDS: HYDROmorphone INJ 1 MG/ML SYRINGE IV PRN ×8 (03:58→23:42)
[2019-10-22 06:41] LABS: INR 1.5 (0.9-1.1); Prothrombin Time 15.4 Seconds (9.0-12.0)
[2019-10-22] MEDS: AZTREONAM 1,000 MG in DEXTROSE 5% 100 ML IV SCH ×3 (08:12→23:44)
[2019-10-22] MEDS: FERROUS SULFATE 325 MG TAB PO SCH ×2 (08:15→16:39)
[2019-10-22] MEDS: DOCUSATE SODIUM 100 MG CAP PO SCH ×2 (08:16→21:19)
[2019-10-22] MEDS: ASPIRIN 325 MG ECTAB PO SCH (08:16)
[2019-10-22] MEDS: NICOTINE 21 MG/24 HR TDSY TD SCH (08:16)
[2019-10-22] MEDS: GABAPENTIN 800 MG TAB PO SCH ×2 (08:16→21:24)
[2019-10-22] MEDS: cilostazoL 100 MG TAB PO SCH ×2 (08:17→21:24)
[2019-10-22] MEDS: INSULIN ASPART 100 UNITS/ML 3 ML PEN SC SCH ×4 (08:31→21:22)
--- NOTE | 2019-10-22 10:26 | Hospitalist Progress Note ---
Date of Service October 22, 2019 Assessment & Plan (1) Sepsis: - Persistent hypotension on 10/20 in setting of right foot infection and abd wall wound; BP has been stable over last 48 hours. - Discontinue IV fluids. - Lactic acid level 0.9; Procal <0.05. - U/a neg; blood cultures negative. - CT A/P showed small right groin fluid collection and left anterior wall fluid collection in setting of recent bypass graft; vascular surgery consulted. - On Dapto/Aztreonam/Flagyl for empiric coverage. (2) Acute hypotension: - As noted above; hold home anti-hypertensive during operative period. (3) Bone infarct: - C/o severe right heel pain - possibly related to bony infarcts noted on MRI vs. diabetic ulcer. - MRI showed multiple patchy areas mostly within distal tibia, fibula and posterior calcaneus -- possibly related to multifocal infarcts. No evidence of osteomyelitis. - Bony infarcts may be related to peripheral vascular disease vs. septic emboli vs. other. - Consult orthopedics for evaluation. - Continue IV abx for coverage of infection. - Morphine and Dilaudid IV prn pain -- has been requiring frequent doses of IV narcotics. (4) Foot ulcer: - MRI showed 2 cm focal skin ulceration on right posterior heel; diabetic foot ulcer. - Continue wound care with optifoam dressing changes daily. - MRI was negative for osteomyelitis but did show bony infarcts. - Continue Dapto/Aztreonam/Flagyl for empiric coverage. (5) Neuropathy: - Continue home Gabapentin as prescribed. (6) Peripheral arterial disease: - Arterial duplex: patent bypass graft to left posterior tibial artery and right limb of bifemoral graft patent to right common femoral artery. Occlusion of distal right common femoral and superficial femoral arteries, similar to Sep 2019. - Vascular consulted, appreciate input. - Continue ASA and Cilostazol as prescribed. - Will resume Coumadin 5 mg daily (INR was 1.5 today, caution d/t interaction with Flagyl). Monitor INR levels daily. (7) Deep postoperative wound infection: - Most recently s/p debridement of abd wall wound and revision of axillary-bifem bypass graft on 09/15/19. - Has deep wound infection with h/o hematoma and secondary wound dehiscence. - Wound care following, appreciate input. - Continue IV Dapto/Aztreonam/Flagyl. - Vascular consulted, placed wound vac and plan for procedure on Wednesday with Dr. Alanis. (8) Wound dehiscence: - As noted above. (9) Diabetes mellitus, type 2: - A1C is 5.3. - Holding home jardiance, metformin and trulicity. - SSI with Lantus 8 units qPM - BG is well controlled. (10) Acute kidney injury superimposed on chronic kidney disease: - Creatinine 1.5 on admission, baseline 0.4-0.7 - Was likely prerenal related to dehydration. - Improved with IV fluid hydration, now discontiued. - Hold home ACEI during operative period. (11) COPD (chronic obstructive pulmonary disease): - Continue Combivent QID prn. - No acute flare noted. (12) Hypertension: - Hold home ACEI during operative period. (13) Enterococcal sepsis: - H/o, on empiric IV abx. - BC negative. (14) Streptococcal sepsis: - H/o, on broad spectrum abx. (15) Weakness: - PT/OT evaluation following improvement in right heel pain/status post procedure on Wednesday. (16) Tobacco abuse: - Nicotine patch ordered. - Encourage complete tobacco cessation in setting of vascular disease. (17) DVT prophylaxis: - SCDs; will resume Coumadin this evening. Dispo: Med/surg with tele. Plan for vascular intervention on Wednesday10/23/19. Subjective Pt. has ongoing pain in right heel, no improvement. Pain was increased o vernight, required IV narcotics more frequently. Redness of heel improved, does have ulcer. Ortho consult pending to eval ryan infarcts. Denies chest pain, SOB, N/V. Has loss of appetite but did eat most of his breakfast this morning. His mood is also improved, more pleasant on exam. Plan for procedure with Dr. Alanis tomorrow. Review of Systems Review of Systems: All systems reviewed & are unremarkable except as noted in HPI & below Constitutional: + fatigue, + weakness and + anorexia; no fever and no chills Respiratory: no cough, no dyspnea and no dyspnea on exertion Cardiovascular: no chest pain, no palpitations and no edema Gastrointestinal: no abdominal pain, no nausea, no vomiting and no constipation Genitourinary: no difficulty urinating Musculoskeletal: + joint pain; no back pain Integumentary: + skin ulcer and + erythema Physical Exam Physical Exam: General: Resting comfortably, very pleasant on exam today. HEENT: NC/AT; PERRLA with EOMI; [place] conjunctiva, MMM. No erythema of posterior pharynx Neck: Supple and nontender Cardiac: RRR Lungs: CTA bilaterally Abdomen: Bowel normoactive X 4; Nontender to palpation. LLQ wound with wound vac. Extremities: Warm. Erythema on right heel is improving, has ongoing tenderness to palpation over area. Ulcer noted on right heel, no discharge. Neuro: No focal weakness Skin: see above Results & Data Vital Signs (Past 12 Hours) Vital Signs Temp Pulse Pulse Resp BP Pulse Ox Pulse Ox 10/22/19 08:24 37.1 C 91 H 16 143/76 H 95 10/22/19 04:00 36.3 C L 88 16 124/96 95 10/21/19 23:59 103 H 10/21/19 23:50 95 10/21/19 23:42 36.6 C 88 16 131/83 95 Laboratory Results 10/22/19 10/22/19 10/21/19 Range/Units 08:00 06:06 21:31 PT 15.4 H (9.0-12.0) Seconds INR 1.5 H (0.9-1.1) POC Glucose 100 H 112 H (70-99) 10/21/19 10/21/19 Range/Units 16:26 11:45 PT (9.0-12.0) Seconds INR (0.9-1.1) POC Glucose 127 H 108 H (70-99) PG Care Time/CCT Total # of Minutes Spent Total Time Spent with Patient: Total time spent is greater than 50% in coordination of care (as documented) at patient's floor/unit and/or counseling patient: (1) Streptococcal sepsis Sepsis acute organ dysfunction status: unspecified Qualified Code(s): A40.9 - Streptococcal sepsis, unspecified (2) COPD (chronic obstructive pulmonary disease) COPD type: unspecified COPD Qualified Code(s): J44.9 - Chronic obstructive pulmonary disease, unspecified (3) Hypertension Hypertension type: essential hypertension Qualified Code(s): I10 - Essential (primary) hypertension
--- NOTE | 2019-10-22 14:25 | Orthopedic Consultation ---
Date of Consultation October 22, 2019 Assessment & Plan (1) Bone infarct: Right lower extremity pain likely due to his peripheral vascular disease and Diabetic heel ulcer. Incidental finding of bony infarcts of the lower extremity. No further orthopedic intervention is necessary. Recommend continuing pain control, and antibiotics per the primary team. Would defer to vascular surgery in regards to revascularization of the right lower extremity as well as treatment of the heel ulcer. May be weightbearing as tolerated right lower extremity. Please recall if there are any orthopedic issues. Thank you for allowing me to participate in Gustavo's care. Present on Admission?: Yes History of Present Illness Reason for Consultation: Right ankle bone Infarcts Requesting Physician: Fady Petersen MD Attending Physician: Trevor Baez MD History of Present Illness Gustavo is a pleasant 59-year-old male, with a history of multiple revascularizations of the left lower extremity and known compromise of the right lower extremity, who was admitted to the hospitalist service for left abdominal wound dehiscence and sepsis. In addition he had right heel pain, and an ulcer. An MRI of the ankle was obtained indicating bony infarcts, no osteomyelitis, and a heel ulcer. I was consulted for further evaluation and treatment. Vascular surgery has also been consulted and plan on debriding the abdominal wound and replacing the wound VAC tomorrow. Allergies Allergy/AdvReac Type Severity Reaction Status Date / Time Penicillins Allergy Severe THROAT Verified 10/19/19 16:30 SWELLS AND HIVES Home Medications Home Medications Medication Instructions Recorded Confirmed Type Combivent Respimat 2 puff INHALATION QID PRN 05/01/19 10/19/19 History Jardiance 10 mg PO QAM 05/01/19 10/19/19 History Toujeo SoloStar U-300 Insulin 15 unit SUBCUT QPM 05/01/19 10/19/19 History Trulicity 0.75 mg SUBCUT SA 05/01/19 10/19/19 History albuterol sulfate 2 puff INHALATION QID PRN 05/01/19 10/19/19 History aspirin 325 mg PO QAM 05/01/19 10/19/19 History cilostazol 100 mg PO BID 05/01/19 10/19/19 History gabapentin [Neurontin] 800 mg PO BID 05/01/19 10/19/19 History lisinopril 40 mg PO QAM 05/01/19 10/19/19 History metformin 1,000 mg PO BID 05/01/19 10/19/19 History docusate sodium 100 mg PO BID #60 cap 08/01/19 10/19/19 Rx ferrous sulfate 325 mg PO BIDM #60 tab 08/01/19 10/19/19 Rx hydrocodone-acetaminophen [[place]] 1 tab PO Q6H PRN #30 tab 09/20/19 10/19/19 Rx levofloxacin 500 mg PO QAM 10/19/19 10/19/19 History sulfamethoxazole-trimethoprim 1 tab PO BID 10/19/19 10/19/19 History warfarin 5 mg PO QDD 10/19/19 10/19/19 History Patient History Medical History Arthritis Chronic back pain Chronic obstructive pulmonary disease Diabetes mellitus, type 2 Diabetic neuropathy, type II diabetes mellitus Diverticulitis (Resolved) History of transfusion Hypertension Neuropathy PVD (peripheral vascular disease) Sleep apnea CPAP HS SOB (shortness of breath) on exertion 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 PER PT LEFT LOWER EXTREMITY ANGIOGRAM, REVISION OF LEFT AXILLARY TO RIGHT FEMORAL BYPASS WITH INTERPOSITION OF BOVINE GRAFT: 07/21/19: Grade view 3, MAC#3, ETT 8 at [facility] History of bowel resection WITH COLOSTOMY/REVERSAL LATER History of right hip replacement S/P femoral-popliteal bypass surgery X 3-LEFT LEG (WOUND DEBRIDEMENT LEFT FOOT) Family History Mother Family history of diabetes mellitus Uncle Family history of diabetes mellitus Social History Preferred Language: Romanian Communication Ability: Effective Technical Analyst Required: No Beliefs That Will Affect Care: None marital status: Current Living Situation: Spouse Current Living Situation Comment: only Other Information That Helps Us Care for You: No Feels Safe at Home: Yes Smoking Status: Former smoker Tobacco Type: cigarettes ; Cigarettes Per Day: 16 ; Do You Dip or Chew Tobacco: No ; Second Hand Exposure: No ; Tobacco Cessation Education Requested by Patient: No Hx Alcohol Use: No Hx Substance Use: Yes substance use type: marijuana Last Used Substance: Unk nown Review of Systems Review of Systems: All systems reviewed & are unremarkable except as noted in HPI & below Physical Exam Physical Exam: RLE: Sensation to light touch is minimal. Brisk cap refill of the toes less than 3 seconds. The toes are slightly more discolored than the rest of the foot. There is limited range of motion of the toes and ankle. He has diffuse pain of the lower leg and foot. There is an ulcer on the heel with noted eschar and surrounding erythema.Unable to palpate DP or PT pulse. Per the nurse, they are able to obtained a Doppler pulse. Calf is soft and nontender. Results & Data Vital Signs (Past 12 Hours) Vital Signs Temp Pulse Pulse Resp BP Pulse Ox 10/22/19 12: 36.8 C 92 H 20 108/73 93 10/22/19 08:24 37.1 C 91 H 16 143/76 H 95 10/22/19 08:00 83 10/22/19 04:00 36.3 C L 88 16 124/96 95 Laboratory Results 10/22/19 10/22/19 10/22/19 Range/Units 11:40 08:00 06:06 PT 15.4 H (9.0-12.0) Seconds INR 1.5 H (0.9-1.1) POC Glucose 114 H 100 H (70-99) 10/21/19 10/21/19 Range/Units 21:31 16:26 PT (9.0-12.0) Seconds INR (0.9-1.1) POC Glucose 112 H 127 H (70-99) Diagnostic Findings Doppler: IMPRESSION: 1. Extensive atherosclerotic plaque within the bilateral lower extremities. Left axillary bifemoral bypass graft. The limb to the left common femoral artery is occluded. However, a bypass graft to the left posterior tibial artery is patent. Patent left posterior tibial artery. Otherwise, left calf vessels with markedly diminished flow. 2. Right limb of bifemoral graft patent to the level of the right common femoral artery. However, occluded distal right common femoral and superficial femoral arteries with markedly diminished, dampened flow within the right calf vessels which is similar to ultrasound of October 03, 2019. MRI: IMPRESSION: 1. 2 cm focal skin ulceration within the posterior heel. 2. Multiple patchy and serpiginous areas of signal abnormality seen throughout the visualized osseous structures of the ankle/hindfoot. This most pronounced within the distal tibia, fibula, and posterior calcaneus. These areas also demonstrate enhancement. The appearance favors multifocal bone infarcts. No cortical obstruction or erosive change to suggest an osteomyelitis. Consider follow-up exam if the patient's symptoms continue to progress to exclude the less likely possibility of an underlying infectious process.
[2019-10-22] MEDS: IPRATROPIUM BROMIDE/ALBUTEROL respimat INH INH PRN (16:39)
[2019-10-22] MEDS: WARFARIN SOD 5 MG TAB PO SCH (17:37)
[2019-10-22] MEDS: INSULIN GLARGINE SOLOSTAR 100 UNITS/ML 3 ML PEN SC SCH (21:22)
[2019-10-23] MEDS: IPRATROPIUM BROMIDE/ALBUTEROL respimat INH INH PRN ×3 (00:54→23:56)
[2019-10-23] MEDS: metroNIDAZOLE 500 MG/100 ML BAG IV SCH ×3 (00:57→17:15)
[2019-10-23] MEDS: DAPTOmycin 450 MG in SYRINGE 0 ML IV SCH (02:03)
[2019-10-23 06:25] LABS: Hematocrit (blood only) 44.9 % (42-52); Hemoglobin 14.9 g/dL (14.0-18.0); Mean Corpuscular Hemoglobin 31.8 pg (25-34); Mean Corpuscular Hgb Conc 33.2 g/dL (32-36); Mean Corpuscular Volume 95.7 fL (80-100); Mean Platelet Volume 8.7 fL (7.4-10.4); Platelet Count 267 K/uL (130-400); RDW Coefficient of Variation 15.6 % (11.5-14.5); RDW Standard Deviation 54.7 fL (36.4-46.3); Red Blood Count 4.69 M/uL (4.7-6.1); White Blood Count 8.15 K/uL (4.8-10.8)
[2019-10-23 06:33] LABS: INR 1.3 (0.9-1.1); Prothrombin Time 13.1 Seconds (9.0-12.0)
[2019-10-23 07:04] LABS: BUN Creatinine Ratio 19.6 (10-20); Calcium 9.4 mg/dl (8.5-10.1); Creatinine Clr Calc Pharmacy 151.5 ml/min; Est GFR (African American) 126.7; Est GFR (Non-African American) 109.3; Potassium 3.6 mmol/L (3.5-5.1)
[2019-10-23] MEDS: AZTREONAM 1,000 MG in DEXTROSE 5% 100 ML IV SCH ×3 (08:51→23:55)
[2019-10-23] MEDS: FERROUS SULFATE 325 MG TAB PO SCH ×2 (08:52→16:12)
[2019-10-23] MEDS: INSULIN ASPART 100 UNITS/ML 3 ML PEN SC SCH ×4 (08:52→21:00)
[2019-10-23] MEDS: DOCUSATE SODIUM 100 MG CAP PO SCH ×2 (08:56→21:03)
[2019-10-23] MEDS: NICOTINE 21 MG/24 HR TDSY TD SCH (09:00)
[2019-10-23] MEDS: GABAPENTIN 800 MG TAB PO SCH ×2 (09:38→21:04)
[2019-10-23] MEDS ORDERED: MIDAZOLAM HCL 1 MG/ML 2ML VIAL ONE (10:20)
[2019-10-23] MEDS ORDERED: fentaNYL citrate 100 MCG/2 ML VIAL ONE (10:20)
--- NOTE | 2019-10-23 10:51 | History & Physical Bridge Note ---
Date of Service October 23, 2019 History & Physical Bridge Note Patient for debridement of his abdominal wall wound and possible wound vac placement. I have discussed the risks options and benefits of the procedure with the patient. The patient understands the risks options and benefits and agrees to the procedure. I have examined the patient, reviewed the History & Physical and in the interval since the performance of the History & Physical I have noted the following changes of clinical significance: no changes noted
--- NOTE | 2019-10-23 11:31 | Anesthesiology Consultation ---
Date of Service October 23, 2019 Assessment & Plan Chart Review Chart Review: Acceptable Risk for Surgery and Patient NOT seen in Pre Admission Testing Consults Requested none ASA ASA4 Proposed Anesthesia Anesthesia Type: General Risk / Benefits Reviewed With: PT / POA / Parent / Guardian, Accepts Plan and Informed Consent Obtained History Surgery Operation Date: 10/23/19 11:20 Proposed Procedures p Abdominal Wall Wound Debridement, With Application Of Wound Vac - Denis Alanis MD Height/Weight Height: 5 ft 11 in Weight: 93.3 kg Allergies Allergy/AdvReac Type Severity Reaction Status Date / Time Penicillins Allergy Severe THROAT Verified 10/19/19 16:30 SWELLS AND HIVES Medications Home Medications Medication Instructions Recorded Confirmed Last Taken Combivent Respimat 2 puff INHALATION QID PRN 05/01/19 10/19/19 10/02/19 Jardiance 10 mg PO QAM 05/01/19 10/19/19 10/19/19 Reynaldo Perkins U-300 Insulin 15 unit SUBCUT QPM 05/01/19 10/19/19 10/18/19 Trulicity 0.75 mg SUBCUT SA 05/01/19 10/19/19 10/14/19 albuterol sulfate 2 puff INHALATION QID PRN 05/01/19 10/19/19 09/15/19 07:30 aspirin 325 mg PO QAM 05/01/19 10/19/19 10/19/19 cilostazol 100 mg PO BID 05/01/19 10/19/19 10/19/19 gabapentin [Neurontin] 800 mg PO BID 05/01/19 10/19/19 10/19/19 lisinopril 40 mg PO QAM 05/01/19 10/19/19 10/19/19 metformin 1,000 mg PO BID 05/01/19 10/19/19 10/19/19 docusate sodium 100 mg PO BID #60 cap 08/01/19 10/19/19 10/19/19 ferrous sulfate 325 mg PO BIDM #60 tab 08/01/19 10/19/19 10/19/19 hydrocodone-acetaminophen [Banning] 1 tab PO Q6H PRN #30 tab 09/20/19 10/19/19 10/19/19 08:00 2 tablets levofloxacin 500 mg PO QAM 10/19/19 10/19/19 10/19/19 sulfamethoxazole-trimethoprim 1 tab PO BID 10/19/19 10/19/19 Unknown warfarin 5 mg PO QDD 10/19/19 10/19/19 10/18/19 Active Medications Generic Name Dose Route Start Last Admin Trade Name Freq PRN Reason Stop Dose Admin Hydrocodone Bitart/Acetaminophen 1 tab 10/20/19 00:06 10/22/19 01:28 Banning 5/325 PO 11/03/19 00:05 1 tab Q6H PRN Administration Pain Albuterol 2 puffs 10/19/19 23:50 10/23/19 00:54 Combivent Respimat INH 11/18/19 23:49 2 puffs QID PRN Administration Shortness Of Breath Or Wheezing Aspirin 325 mg 10/20/19 09:00 10/22/19 08:16 Ecotrin PO 11/19/19 08:59 325 mg QAM RAFA Administration Cilostazol 100 mg 10/19/19 23:50 10/22/19 21:24 Pletal PO 11/18/19 23:49 100 mg BID RAFA Administration Docusate Sodium 100 mg 10/19/19 23:50 10/23/19 08:56 Colace PO 11/18/19 23:49 Not Given BID RAFA Ferrous Sulfate 325 mg 10/20/19 08:00 10/23/19 08:52 Feosol PO 11/19/19 07:59 Not Given BIDM RAFA Gabapentin 800 mg 10/19/19 23:50 10/23/19 09:38 Neurontin PO 11/18/19 23:49 800 mg BID RAFA Administration Gadobutrol 9 ml 10/21/19 13:10 10/21/19 13:11 Gadavist 30ml IV 10/25/19 13:09 9 ml ONCE PRN Administration Interaction Checking Hydromorphone HCl 1 mg 10/22/19 03:41 10/22/19 23:42 Dilaudid IV 11/05/19 03:40 1 mg Q2H PRN Administration Pain Daptomycin 450 mg/ Syringe 9 mls @ 4.5 mls/min 10/20/19 02:00 10/23/19 02:03 IV 10/30/19 01:59 4.5 mls/min Q24H RAFA Administration Protocol Aztreonam 1,000 mg/ Dextrose 105 mls @ 100 mls/hr 10/20/19 00:00 10/23/19 09:55 IV 10/30/19 00:00 Infused Q8H RAFA Infusion Protocol Metronidazole 500 mg in 100 mls @ 100 mls/hr 10/20/19 09:00 10/23/19 10:56 Flagyl IV 10/30/19 08:59 Infused Q8H RAFA Infusion Insulin Aspart 0 units 10/20/19 07:30 10/23/19 08:52 Novolog Flexpen SC 11/19/19 07:29 Not Given ACHS RAFA Insulin Glargine 8 units 10/20/19 21:00 10/22/19 21:22 Lantus Solostar Pen SC 11/19/19 20:59 8 units QPM RAFA Administration Ioversol 93 ml 10/19/19 17:00 10/19/19 17:01 Optiray 320 100ml IV 10/23/19 16:59 1 ml ONCE PRN Administration Interaction Checking Miscellaneous 1 ea 10/21/19 08:59 10/23/19 09:00 Remove Nicoderm Patch N/A 11/20/19 08:58 Not Given [id number] [facility] Nicotine 21 mg 10/20/19 17:05 10/23/19 09:00 Nicoderm Cq TD 11/19/19 17:04 Not Given QAM [facility] Warfarin Sodium 5 mg 10/20/19 16:30 10/22/19 17:37 Coumadin PO 11/19/19 16:29 5 mg QDD RAFA Administration NPO Date Last Intake of Fluids: 10/22/19 Time Last Intake of Fluids: 17:30 Last Intake of Fluids Comment: sips with morning meds Date Last Intake of Solids: 10/22/19 Time Last Intake of Solids: 17:30 Past Medical History Medical History Arthritis Chronic back pain Chronic obstructive pulmonary disease Diabetes mellitus, type 2 Diabetic neuropathy, type II diabetes mellitus Diverticulitis (Resolved) History of transfusion Hypertension Neuropathy PVD (peripheral vascular disease) Sleep apnea CPAP HS SOB (shortness of breath) on exertion 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 PER PT LEFT LOWER EXTREMITY ANGIOGRAM, REVISION OF LEFT AXILLARY TO RIGHT FEMORAL BYPASS WITH INTERPOSITION OF BOVINE GRAFT: 07/21/19: Grade view 3, MAC#3, ETT 8 at [facility] History of bowel resection WITH COLOSTOMY/REVERSAL LATER History of right hip replacement S/P femoral-popliteal bypass surgery X 3-LEFT LEG (WOUND DEBRIDEMENT LEFT FOOT) Past Anesthesia History No Hx of Anesthesia Complications and No Family Hx of Anesthesia Complications History of PONV No Hx of PONV and No Hx of Motion Sickness Social History Smoking Status: Heavy tobacco smoker tobacco type: cigarettes Smoking cigarettes per day: 16 Do You Dip or Chew Tobacco: No Hx Alcohol Use: No Hx Substance Use: Yes substance use type: marijuana Last Used Substance: Unknown Physical Exam Vital Signs Last Vital Signs Temp 36.4 C L 10/23/19 10:58 Pulse 94 H 10/23/19 10:58 Resp 16 10/23/19 10:58 BP 108/79 10/23/19 10:58 Pulse Ox 93 10/23/19 10:58 Constitutional + obese ENMT Mouth: + dentition abnormality and + poor dentition Thyromental Distance: > or= 3.5 Finger Breadths Mallampati Class: III Neck normal visual inspection and + facial hair; neck extension not limited Respiratory normal respiratory effort Auscultation: + diminished lung sounds Cardiovascular Rate/Rhythm: regular rate and regular rhythm Heart Sounds: no murmur Vessels: no carotid bruit Musculoskeletal Spine: normal cervical ROM Extremities: full ROM of extremities Neurologic moves all extremities Motor/Sensory: + sensory deficit (feet) Psychiatric Orientation: alert and oriented x 3 Testing Laboratory Results 10/23/19 05:53 10/23/19 05:53 PT 13.1 Seconds (9.0-12.0) H 10/23/19 05:53 INR 1.3 (0.9-1.1) H 10/23/19 05:53 APTT 52.1 Seconds (21.0-31.0) H* 10/20/19 06:29 Hemoglobin A1c 5.3 % (4.5-5.6) 10/20/19 06:29 Urine Color Yellow 10/19/19 19:30 Urine Appearance Clear (Clear) 10/19/19 19:30 Urine pH 5.0 (4.5-7.5) 10/19/19 19:30 Ur Specific Ensign 1.022 (1.000-1.030) 10/19/19 19:30 Urine Protein Negative (Negative) 10/19/19 19:30 Urine Glucose (UA) 3+ (Negative) H 10/19/19 19:30 Urine Ketones Negative (Negative) 10/19/19 19: Urine Nitrite Negative (Negative) 10/19/19 19:30 Ur Leukocyte Esterase Negative (Negative) 10/19/19 19:30 10/19/19 16:30 Aerobic Blood Culture - Preliminary Blood No growth in Aerobic bottle after 48 hours. Anaerobic Blood Culture - Preliminary No growth in Anaerobic bottle after 48 hours. 10/19/19 16:34 Aerobic Blood Culture - Preliminary Blood No growth in Aerobic bottle after 48 hours. Anaerobic Blood Culture - Final 10/23/19 10/23/19 10:45 08:02 POC Glucose 129 H 127 H Electrocardiogram Date: 10/20/19 Findings: + NSR @ (at 100;RAD;low voltage QRS) Chest X-Ray Date: 10/19/19 Findings: + NAD
[2019-10-23] MEDS ORDERED: NALOXONE HCL 0.4 MG/1 ML VIAL/CARP IV PRN (11:35)
[2019-10-23] MEDS ORDERED: ONDANSETRON INJ 2 MG/ML 2 ML VIAL IV PRN (11:35)
[2019-10-23] MEDS ORDERED: ATROPINE SULFATE 0.1 MG/ML 10ML SYR IV PRN (11:35)
[2019-10-23] MEDS ORDERED: FLUMAZENIL 0.1 MG/1 ML 10 ML VIAL IV PRN (11:35)
[2019-10-23] MEDS ORDERED: ePHEDrine sulfate 50 MG/ML AMP IV PRN (11:35)
[2019-10-23] MEDS ORDERED: LABETALOL HCL IV 5 MG/ML 20ML IV PRN (11:35)
[2019-10-23] MEDS ORDERED: PROMETHAZINE HCL 12.5 MG in SODIUM CHLORIDE 0.9% 50 ML IV PRN (11:35)
[2019-10-23] MEDS ORDERED: LIDOCAINE HCL 2% 2 ML VIAL/AMP(20MG/ML) INFIL ONE (11:59)
[2019-10-23] MEDS ORDERED: ONDANSETRON INJ 2 MG/ML 2 ML VIAL ONE (11:59)
[2019-10-23] MEDS ORDERED: PROPOFOL IV EMULSION 10 MG/ML 20 ML VIAL IV ONE (11:59)
--- NOTE | 2019-10-23 12:14 | Post Operative Brief Note ---
Immediate Post Op Note v1 Date of Surgery October 23, 2019 Pre & Post Diagnosis Operation Date: 10/23/19 11:20 Pre-Op Diagnosis: Open wound anterior abdominal wall Post-Op Diagnosis: Open wound anterior abdominal wall I identified the patient and participated in the time-out.: Yes Procedure Operation Date: 10/23/19 11:20 Actual Procedures p Debridement of Abdominal Wall Wound 11cm x 4cm x 3cm, With Application Of Wound Vac(Not Applicable) - Denis Alanis MD Surgeon Denis Alanis MD Search Engine Optimizer Anderson,PAC Estimated Blood Loss 50 Findings Consistent with Post-Op Diagnosis Anesthesia Type General Complications none Disposition Accompanied Patient To Recovery: No Disposition: Recovery Room
--- NOTE | 2019-10-23 12:18 | Operative Report ---
Post Operative Report Pre & Post Diagnosis Operation Date: 10/23/19 11:20 Pre-Op Diagnosis: Open wound anterior abdominal wall Post-Op Diagnosis: Open wound anterior abdominal wall I identified the patient and participated in the time-out.: Yes Procedure Operation Date: 10/23/19 11:20 Actual Procedures p Debridement of Abdominal Wall Wound 11cm x 4cm x 3cm, With Application Of Wound Vac(Not Applicable) - Denis Alanis MD Surgeon Denis Alanis MD Clinical Allergist Anderson,PAC Estimated Blood Loss 50 Findings Consistent with Post-Op Diagnosis Specimens none Anesthesia Type General Complications none Disposition Accompanied Patient To Recovery: No Disposition: Recovery Room Indications This is a 59-year-old gentleman who had an infected graft removed from his anterior abdominal wall. The wound was left open he is now developed some necrosis along the sided wound and a tunneling pocket medially. Debridement and reapplication wound VAC was recommended. I have discussed the risks options and benefits of the procedure with the patient. The patient understands the risks options and benefits and agrees to the procedure. Description of Procedure Patient was taken the operating placed in the supine position. After general anesthesia was accomplished the abdomen was prepped and draped in a sterile manner. Patient was identified and timeout was performed the tunneled area was unroofed in its entirety. The edges were debrided to make a smooth incision. All necrotic tissue along the edges of the wound and base were removed. Wound was irrigated with saline solution. Adequate hemostasis was obtained. The wound measured 11 x 4 x 3 cm in size. Silver wound VAC was then reapplied. Good seal was obtained. The patient left the operation room in satisfactory condition and tolerated the procedure well. All needle and sponge counts were correct at the end of the procedure. Sara Crowley Pac assisted due to lack of resident availability and was necessary for positioning, draping, retraction, wound closure deep layers, subcutaneous tissue, and skin closure and was necessary for assisting with the case. I attest to the content of the Intraoperative Record and any orders documented therein. Any exceptions are noted below.
[2019-10-23] MEDS: fentaNYL citrate 100 MCG/2 ML VIAL IV PRN ×4 (12:30→12:45)
[2019-10-23] MEDS: HYDROmorphone INJ 1 MG/ML SYRINGE IV PRN ×4 (12:50→13:05)
--- NOTE | 2019-10-23 13:12 | Anesthesiology Progress Note ---
Date of Service October 23, 2019 Anesthesia Post Procedure Vital Signs Vital Signs: Temp Pulse Pulse Pulse Resp BP Pulse Ox 10/23/19 13:10 80 18 112/79 94 10/23/19 13:00 82 18 113/82 95 10/23/19 12:50 83 18 117/75 100 10/23/19 12:40 83 18 118/64 100 10/23/19 12:30 81 18 149/79 H 100 10/23/19 12:20 36.2 C L 111 H 18 157/89 H 98 10/23/19 10:58 36.4 C L 94 H 16 108/79 93 10/23/19 08:43 36.6 C 92 H 20 132/74 92 10/23/19 07:02 90 10/23/19 04:00 36.1 C L 91 H 18 109/72 95 10/22/19 23:19 36.8 C 66 18 151/82 H 95 10/22/19 19:18 36.7 C 85 17 140/83 95 10/22/19 15:23 37.1 C 84 20 111/70 94 10/22/19 15:22 91 H Pain Intensity Right Heel: Pain Intensity: 0 Transfer of Care Handoff Completed per policy Notes Mental Status: alert / awake / arousable Patient Amnestic to Procedure: Yes Nausea / Vomiting: adequately controlled Pain: adequately controlled Airway Patency, RR, SpO2: stable & adequate BP & HR: stable & adequate Hydration State: stable & adequate Anesthetic Complications: no major complications apparent
[2019-10-23] MEDS: cilostazoL 100 MG TAB PO SCH ×2 (13:40→21:04)
[2019-10-23] MEDS ORDERED: OXYCODONE HCL IR 5 MG TAB (IMMEDIATE RELEASE) PO PRN (14:24)
[2019-10-23] MEDS: OXYCODONE HCL IR 5 MG TAB (IMMEDIATE RELEASE) PO PRN ×2 (14:48→19:24)
[2019-10-23] MEDS: ASPIRIN 325 MG ECTAB PO SCH (14:49)
--- NOTE | 2019-10-23 15:19 | Hospitalist Progress Note ---
Date of Service October 23, 2019 Assessment & Plan (1) Sepsis: - Persistent hypotension on 10/20 in setting of right foot infection and abd wall wound; BP is stable, will monitor. - D/c'ed IV fluids. - Lactic acid level 0.9; Procal <0.05. - U/a neg; blood cultures negative. - CT A/P showed small right groin fluid collection and left anterior wall fluid collection in setting of recent bypass graft; vascular surgery following. (2) Acute hypotension: - As noted above; holding home anti-hypertensive during operative period. - Blood pressure has been stable. (3) Bone infarct: - C/o severe right heel pain - possibly related to bony infarcts noted on MRI vs. peripheral vascular disease vs. diabetic ulcer. - MRI showed multiple patchy areas mostly within distal tibia, fibula and posterior calcaneus -- possibly related to multifocal infarcts. No evidence of osteomyelitis. - Bony infarcts likely related to peripheral vascular disease. - Consulted orthopedics, acute right heel pain is not likely related to infarcts. - Start Oxycodone 5 mg q6hr prn mild pain, 10 mg q6hr prn moderate pain; Morphine IV prn severe pain but encouraged use of PO narcotics. (4) Foot ulcer: Unstageable Pressure ulcer of right heel - MRI showed 2 cm focal skin ulceration on right posterior heel; diabetic foot ulcer with 3 areas of ulceration noted on posterior right heel. - Continue wound care; will consult wound care nurse. - MRI was negative for osteomyelitis but did show bony infarcts. - Continue Dapto/Aztreonam/Flagyl - consult ID for recs on length/choice of abx. Will benefit from follow up in wound clinic and with ID. - Encourage waffle boot use -- pt. has been noncompliant with wearing boots throughout the day. (5) Neuropathy: - Continue home Gabapentin as prescribed. (6) Peripheral arterial disease: - Arterial duplex: patent bypass graft to left posterior tibial artery and right limb of bifemoral graft patent to right common femoral artery. Occlusion of distal right common femoral and superficial femoral arteries, similar to Sep 2019. - Vascular consulted, appreciate input. - Continue ASA and Cilostazol as prescribed. - Resumed Coumadin 5 mg daily on 10/22 (INR was 1.3 today, caution d/t interaction with Flagyl). Monitor INR levels daily. - Has known PAD but cannot tolerate a repeat vascular procedure in right extremity until patient clears current infection (see above) (7) Deep postoperative wound infection: - Most recently s/p debridement of abd wall wound and revision of axillary-bifem bypass graft on 09/15/19. - Has deep wound infection with h/o hematoma and secondary wound dehiscence. - Wound care following, appreciate input. - Continue IV Dapto/Aztreonam/Flagyl. - Vascular consulted, s/p debridement of abd wall wound 11 cm x 4 cm x 3 cm with application of wound vac this morning. (8) Wound dehiscence: - As noted above. (9) Diabetes mellitus, type 2: - A1C is 5.3. - Holding home jardiance, metformin and trulicity. - SSI with Lantus 8 units qPM - BG is well controlled. (10) Acute kidney injury superimposed on chronic kidney disease: - Creatinine 1.5 on admission, baseline 0.4-0.7 - Was likely prerenal related to dehydration. - Improved with IV fluid hydration, now discontinued. - Holding home ACEI during operative period. (11) COPD (chronic obstructive pulmonary disease): - Continue Combivent QID prn. - No acute flare noted. (12) Hypertension: - Holding home ACEI during operative period. (13) Enterococcal sepsis: - H/o, on empiric IV abx. - BC negative. (14) Streptococcal sepsis: - H/o, on broad spectrum abx. (15) Weakness: - PT/OT evaluation following improvement in right heel pain/status post procedure. (16) Tobacco abuse: - Nicotine patch ordered. - Encourage complete tobacco cessation in setting of vascular disease. (17) DVT prophylaxis: - SCDs; continue home Coumadin. Dispo: Med/surg with tele. Discharge pending PT/OT evaluation and adequate pain control. Supervising Physician Co-Signing Physician Notes I have seen and examined patient followed by Isis Andres PA-C and agree with the assessment and plan. My exam: General: Resting comfortably HEENT:PERRLA with EOMI; Neck: Supple and nontender Cardiac: RRR Lungs: CTA bilaterally Abdomen: Bowel normoactive X 4; Nontender to palpation. LLQ wound with wound vac, mild bleeding at site noted. Extremities:Three ulcers with necrotic appearing tissue noted on right posterior heel.Erythema regressed. Neuro: No focal weakness Skin: Three shallow ulcers with eschar on the posterior right heel. Subjective Pt. c/o pain in right heel -- rates pain as a 9/10 on pain scale. Has been using IV narcotics frequently. Erythema of heel improving, continue wound care for ulcers. S/p procedure with Dr. Alanis today, wound vac in place. He is having BMs, denies chest pain, SOB, N/V, urinary retention. Review of Systems Review of Systems: All systems reviewed & are unremarkable except as noted in HPI & below Constitutional: no fever, no chills, no fatigue, no weakness and no anorexia Respiratory: no cough, no dyspnea and no dyspnea on exertion Cardiovascular: no chest pain, no palpitations and no edema Gastrointestinal: no abdominal pain, no nausea, no vomiting and no constipation Genitourinary: no difficulty urinating Musculoskeletal: + joint pain (Right heel pain); no back pain Integumentary: + non-healing lesions, + skin ulcer and + erythema (Improving) Physical Exam Physical Exam: General: Resting comfortably HEENT: NC/AT; PERRLA with EOMI; Amado conjunctiva, MMM. No erythema of posterior pharynx Neck: Supple and nontender Cardiac: RRR Lungs: CTA bilaterally Abdomen: Bowel normoactive X 4; Nontender to palpation. LLQ wound with wound vac, mild bleeding at site noted. Extremities: Erythema on right heel resolved. 3 ulcers with necrotic appearing tissue noted on right posterior heel. Neuro: No focal weakness Skin: see above Results & Data Vital Signs (Past 12 Hours) Vital Signs Temp Pulse Pulse Pulse Resp BP Pulse Ox 10/23/19 14:30 37.1 C 98 H 18 141/50 H 94 10/23/19 14:00 36.9 C 86 18 119/75 94 10/23/19 13:38 36 C L 85 16 121/86 10/23/19 13:20 36.8 C 76 18 108/81 95 10/23/19 13:10 80 18 112/79 94 10/23/19 13:00 82 18 113/82 95 10/23/19 12:50 83 18 117/75 100 10/23/19 12:40 83 18 118/64 100 10/23/19 12:30 81 18 149/79 H 100 10/23/19 12:20 36.2 C L 111 H 18 157/89 H 98 10/23/19 10:58 36.4 C L 94 H 16 108/79 93 10/23/19 08:43 36.6 C 92 H 20 132/74 92 10/23/19 07:02 90 10/23/19 04:00 36.1 C L 91 H 18 109/72 95 Laboratory Results 10/23/19 10/23/19 10/23/19 Range/Units 12:22 10:45 08:02 WBC (4.8-10.8) K/uL RBC (4.7-6.1) M/uL Hgb (14.0-18.0) g/dL Hct (42-52) % MCV (80-100) fL MCH (25-34) pg MCHC (32-36) g/dL RDW Std Deviation (36.4-46.3) fL RDW Coeff of Maira (11.5-14.5) % Plt Count (130-400) K/uL MPV (7.4-10.4) fL PT (9.0-12.0) Seconds INR (0.9-1.1) Sodium (136-145) mmol/L Potassium (3.5-5.1) mmol/L Chloride (98-107) mmol/L Carbon Dioxide (21-32) mmol/L Anion Gap (3-11) BUN (7-18) mg/dl Creatinine (0.6-1.4) mg/dl Est Cr Clr Drug Dosing ml/min Est GFR ( Amer) Est GFR (Non-Af Amer) BUN/Creatinine Ratio (10-20) Glucose (70-99) mg/dl POC Glucose 127 H 129 H 127 H (70-99) Calcium (8.5-10.1) mg/dl 10/23/19 10/23/19 10/23/19 Range/Units 05:53 05:53 05:53 WBC 8.15 (4.8-10.8) K/uL RBC 4.69 L (4.7-6.1) M/uL Hgb 14.9 (14.0-18.0) g/dL Hct 44.9 (42-52) % MCV 95.7 (80-100) fL MCH 31.8 (25-34) pg MCHC 33.2 (32-36) g/dL RDW Std Deviation 54.7 H (36.4-46.3) fL RDW Coeff of Maira 15.6 H (11.5-14.5) % Plt Count 267 (130-400) K/uL MPV 8.7 (7.4-10.4) fL PT 13.1 H (9.0-12.0) Seconds INR 1.3 H (0.9-1.1) Sodium 140 (136-145) mmol/L Potassium 3.6 D (3.5-5.1) mmol/L Chloride 107 (98-107) mmol/L Carbon Dioxide 26 (21-32) mmol/L Anion Gap 7.0 (3-11) BUN 12 (7-18) mg/dl Creatinine 0.62 (0.6-1.4) mg/dl Est Cr Clr Drug Dosing 151.5 ml/min Est GFR ( Amer) 126.7 Est GFR (Non-Af Amer) 109.3 BUN/Creatinine Ratio 19.6 (10-20) Glucose 110 H (70-99) mg/dl POC Glucose (70-99) Calcium 9.4 (8.5-10.1) mg/dl 10/22/19 10/22/19 Range/Units 20:53 16:39 WBC (4.8-10.8) K/uL RBC (4.7-6.1) M/uL Hgb (14.0-18.0) g/dL Hct (42-52) % MCV (80-100) fL MCH (25-34) pg MCHC (32-36) g/dL RDW Std Deviation (36.4-46.3) fL RDW Coeff of Maira (11.5-14.5) % Plt Count (130-400) K/uL MPV (7.4-10.4) fL PT (9.0-12.0) Seconds INR (0.9-1.1) Sodium (136-145) mmol/L Potassium (3.5-5.1) mmol/L Chloride (98-107) mmol/L Carbon Dioxide (21-32) mmol/L Anion Gap (3-11) BUN (7-18) mg/dl Creatinine (0.6-1.4) mg/dl Est Cr Clr Drug Dosing ml/min Est GFR ( Amer) Est GFR (Non-Af Amer) BUN/Creatinine Ratio (10-20) Glucose (70-99) mg/dl POC Glucose 112 H 218 H (70-99) Calcium (8.5-10.1) mg/dl PG Care Time/CCT Total # of Minutes Spent Total Time Spent with Patient: Total time spent is greater than 50% in coordination of care (as documented) at patient's floor/unit and/or counseling patient: (1) Streptococcal sepsis Sepsis acute organ dysfunction status: unspecified Qualified Code(s): A40.9 - Streptococcal sepsis, unspecified (2) COPD (chronic obstructive pulmonary disease) COPD type: unspecified COPD Qualified Code(s): J44.9 - Chronic obstructive pulmonary disease, unspecified (3) Hypertension Hypertension type: essential hypertension Qualified Code(s): I10 - Essential (primary) hypertension
[2019-10-23] MEDS: WARFARIN SOD 5 MG TAB PO SCH (16:11)
[2019-10-23] MEDS: INSULIN GLARGINE SOLOSTAR 100 UNITS/ML 3 ML PEN SC SCH (21:00)
[2019-10-24] MEDS ORDERED: SODIUM CHLORIDE 0.65% NA SOLN 45 ML (OCEAN) ONE (00:04)
[2019-10-24] MEDS: metroNIDAZOLE 500 MG/100 ML BAG IV SCH ×3 (01:09→17:59)
[2019-10-24] MEDS: DAPTOmycin 450 MG in SYRINGE 0 ML IV SCH (02:10)
[2019-10-24 07:38] LABS: Hematocrit (blood only) 44.1 % (42-52); Hemoglobin 14.8 g/dL (14.0-18.0); Mean Corpuscular Hemoglobin 32.2 pg (25-34); Mean Corpuscular Hgb Conc 33.6 g/dL (32-36); Mean Corpuscular Volume 95.9 fL (80-100); Mean Platelet Volume 8.8 fL (7.4-10.4); Platelet Count 272 K/uL (130-400); RDW Coefficient of Variation 15.6 % (11.5-14.5); RDW Standard Deviation 54.7 fL (36.4-46.3); White Blood Count 7.51 K/uL (4.8-10.8)
[2019-10-24 07:52] LABS: INR 1.4 (0.9-1.1); Prothrombin Time 14.2 Seconds (9.0-12.0)
--- NOTE | 2019-10-24 08:04 | Anesthesiology Progress Note ---
Date of Service October 24, 2019 Anesthesia Post Procedure Vital Signs Vital Signs: Temp Pulse Pulse Pulse Resp BP Pulse Ox 10/24/19 07:22 37.0 C 104 H 16 118/75 93 10/24/19 03:10 37.1 C 101 H 18 134/75 91 10/24/19 00:52 89 10/23/19 23:24 36.5 C 92 H 18 127/77 96 10/23/19 19:22 36.6 C 91 H 18 108/70 95 10/23/19 18:41 37.3 C 91 H 18 122/77 10/23/19 17:46 36.9 C 93 H 18 99/61 L 93 10/23/19 16:20 36.8 C 92 H 16 116/72 94 10/23/19 15:20 36.8 C 82 18 110/86 10/23/19 15:10 84 10/23/19 14:30 37.1 C 98 H 18 141/50 H 94 10/23/19 14:00 36.9 C 86 18 119/75 94 10/23/19 13:38 36 C L 85 16 121/86 10/23/19 13:20 36.8 C 76 18 108/81 95 10/23/19 13:10 80 18 112/79 94 10/23/19 13:00 82 18 113/82 95 10/23/19 12:50 83 18 117/75 100 10/23/19 12:40 83 18 118/64 100 10/23/19 12:30 81 18 149/79 H 100 10/23/19 12:20 36.2 C L 111 H 18 157/89 H 98 10/23/19 10:58 36.4 C L 94 H 16 108/79 93 10/23/19 08:43 36.6 C 92 H 20 132/74 92 Pain Intensity Right Heel: Pain Intensity: 5 Transfer of Care Handoff Completed per policy Notes Mental Status: alert / awake / arousable Patient Amnestic to Procedure: Yes Nausea / Vomiting: adequately controlled Pain: adequately controlled Anesthetic Complications: no major complications apparent and Pt Satisfied with anesthetic care
[2019-10-24 08:06] LABS: BUN Creatinine Ratio 20.4 (10-20); Calcium 9.2 mg/dl (8.5-10.1); Creatinine Clr Calc Pharmacy 146.9 ml/min; Est GFR (African American) 125.1; Est GFR (Non-African American) 107.9; Potassium 3.6 mmol/L (3.5-5.1)
[2019-10-24] MEDS: AZTREONAM 1,000 MG in DEXTROSE 5% 100 ML IV SCH ×3 (08:35→23:53)
[2019-10-24] MEDS: INSULIN ASPART 100 UNITS/ML 3 ML PEN SC SCH ×4 (08:36→21:19)
[2019-10-24] MEDS: cilostazoL 100 MG TAB PO SCH ×2 (08:38→21:17)
[2019-10-24] MEDS: ASPIRIN 325 MG ECTAB PO SCH (08:38)
[2019-10-24] MEDS: DOCUSATE SODIUM 100 MG CAP PO SCH (08:38)
[2019-10-24] MEDS: GABAPENTIN 800 MG TAB PO SCH ×2 (08:39→21:17)
[2019-10-24] MEDS: FERROUS SULFATE 325 MG TAB PO SCH ×2 (08:40→17:06)
[2019-10-24] MEDS: NICOTINE 21 MG/24 HR TDSY TD SCH (08:40)
[2019-10-24] MEDS: OXYCODONE HCL IR 5 MG TAB (IMMEDIATE RELEASE) PO PRN ×3 (10:10→22:39)
--- NOTE | 2019-10-24 12:41 | Surgery Progress Note ---
Date of Service October 24, 2019 Assessment & Plan (1) Open wound anterior abdominal wall: Pt doing well post op. Continue abx per medicine. Waffle boots to heels. Planning wound vac change tomorrow. Subjective 59 yo m with multiple medical problems, POD #1 after abd wound debridement and wound vac placement, seen in f/u today. Pt denies pain in abd wound. Admits pain R heel, controlled wiht meds. Review of Systems Review of Systems: All systems reviewed & are unremarkable except as noted in HPI & below Physical Exam Constitutional: WD/WN, vitals as above cooperative; not in distress Cardiovascular: Rate/Rhythm: regular rhythm Vessels: femoral pulses present, posterior tibial pulses present (LLE palpable, RLE nonpalpable), dorsalis pedis pulses present (LLE palpable, RLE nonpalpable.), brachial pulses present and radial pulses present; + abnormal peripheral pulses Extremities: normal capillary refill Skin: + wound (L abd wound vac in place, well sealed) and + eschar (soft tissue presure area R heel, tender, mild erythema, not boggy, no odor ) Neurologic: moves all extremities; no focal motor deficits Psychiatric: A+Ox3, euthymic affect Results & Data Vital Signs (Past 12 Hours) Vital Signs Temp Pulse Pulse Pulse Resp BP BP 10/24/19 11:17 37.2 C 90 18 144/78 H 10/24/19 07:22 37.0 C 104 H 16 118/75 10/24/19 03:10 37.1 C 101 H 18 134/75 10/24/19 00:52 89 Pulse Ox 10/24/19 11:17 93 10/24/19 07:22 93 10/24/19 03:10 91 10/24/19 00:52
--- NOTE | 2019-10-24 12:57 | Infectious Disease Consult ---
Date of Consultation October 24, 2019 Assessment & Plan (1) Foot ulcer: can continue IV abx for now, no + micro, no osteo on MRI, procalcitonin negative, afebrile no leukocytosis, would give 7 days doxy post d/c for abd wound. no abx suggested for foot ulcer at this time but should follow at wound center post d/c. (2) Bone infarct: (3) Open wound anterior abdominal wall: History of Present Illness Attending Physician: Holley Oden MD pt admitted with heel pain. has had complicated past recently with infected r graft, cutlures grew MSSA and strep, was treated by Dr. Yin during last admission, now with wound opening, taken to OR this admission for I&D debridement on nectrotic tissue, vac placed. no pain at wound. Had MRI foot, bone infarcts noted, no osteomyelitis noted, saw ortho, no plan for interven tion. pt has been on dapto aztreonam and flagyl, tolerating well. eating lunch on my exam, no pain in foot at this time. procalcitonin <0.05,wbc 7, Blood cultures 10/19 negative. afebrile since admission. no wound cultures from this admission, for vac change in am. pt states he is anxious for d/c home. denies abd pain, no n/v/d, no f/c Allergies Allergy/AdvReac Type Severity Reaction Status Date / Time Penicillins Allergy Severe THROAT Verified 10/19/19 16:30 SWELLS AND HIVES Home Medications Home Medications Medication Instructions Recorded Confirmed Type Combivent Respimat 2 puff INHALATION QID PRN 05/01/19 10/19/19 History Jardiance 10 mg PO QAM 05/01/19 10/19/19 History Toujeo SoloStar U-300 Insulin 15 unit SUBCUT QPM 05/01/19 10/19/19 History Trulicity 0.75 mg SUBCUT SA 05/01/19 10/19/19 History albuterol sulfate 2 puff INHALATION QID PRN 05/01/19 10/19/19 History aspirin 325 mg PO QAM 05/01/19 10/19/19 History cilostazol 100 mg PO BID 05/01/19 10/19/19 History gabapentin [Neurontin] 800 mg PO BID 05/01/19 10/19/19 History lisinopril 40 mg PO QAM 05/01/19 10/19/19 History metformin 1,000 mg PO BID 05/01/19 10/19/19 History docusate sodium 100 mg PO BID #60 cap 08/01/19 10/19/19 Rx ferrous sulfate 325 mg PO BIDM #60 tab 08/01/19 10/19/19 Rx hydrocodone-acetaminophen [Coleman] 1 tab PO Q6H PRN #30 tab 09/20/19 10/19/19 Rx levofloxacin 500 mg PO QAM 10/19/19 10/19/19 History sulfamethoxazole-trimethoprim 1 tab PO BID 10/19/19 10/19/19 History warfarin 5 mg PO QDD 10/19/19 10/19/19 History Patient History Medical History Arthritis Chronic back pain Chronic obstructive pulmonary disease Diabetes mellitus, type 2 Diabetic neuropathy, type II diabetes mellitus Diverticulitis (Resolved) History of transfusion Hypertension Neuropathy PVD (peripheral vascular disease) Sleep apnea CPAP HS SOB (shortness of breath) on exertion 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 PER PT LEFT LOWER EXTREMITY ANGIOGRAM, REVISION OF LEFT AXILLARY TO RIGHT FEMORAL BYPASS WITH INTERPOSITION OF BOVINE GRAFT: 07/21/19: Grade view 3, MAC#3, ETT 8 at [facility] History of bowel resection WITH COLOSTOMY/REVERSAL LATER History of right hip replacement S/P femoral-popliteal bypass surgery X 3-LEFT LEG (WOUND DEBRIDEMENT LEFT FOOT) Family History Mother Family history of diabetes mellitus Uncle Family history of diabetes mellitus Social History Preferred Language: Dominican Communication Ability: Effective Safe Deposit Clerk Required: No Beliefs That Will Affect Care: None marital status: Current Living Situation: Spouse Current Living Situation Comment: only Other Information That Helps Us Care for You: No Feels Safe at Home: Yes Smoking Status: Heavy tobacco smoker Tobacco Type: cigarettes ; Cigarettes Per Day: 16 ; Do You Dip or Chew Tobacco: No ; Second Hand Exposure: No ; Tobacco Cessation Education Requested by Patient: No Hx Alcohol Use: No Hx Substance Use: Yes substance use type: marijuana Last Used Substance: Unknown Review of Systems Review of Systems: All systems reviewed & are unremarkable except as noted in HPI & below Physical Exam Constitutional: WD/WN, vitals as above Eyes: PERRL, conjunctivae normal, anicteric sclerae ENMT: external ear and nose normal, oropharynx normal Neck: normal visual inspection Respiratory: normal respiratory effort, lungs clear to auscultation Cardiovascular: RRR, no murmur, no edema Gastrointestinal (Abdomen): normal bowel sounds, soft, nontender, no hepatosplenomegaly Musculoskeletal: no cyanosis or clubbing, extremities motor strength 5/5 Skin: no rashes, warm and dry + wound (vac in place non tender no eyrthema) Psychiatric: A+Ox3, euthymic affect Results & Data Vital Signs (Past 12 Hours) Vital Signs Temp Pulse Pulse Resp BP BP Pulse Ox 10/24/19 11:17 37.2 C 90 18 144/78 H 93 10/24/19 07:22 37.0 C 104 H 16 118/75 93 10/24/19 03:10 37.1 C 101 H 18 134/75 91 Laboratory Results Microbiology 10/19/19 16:30 Blood Aerobic Blood Culture - Preliminary No growth in Aerobic bottle after 48 hours. 10/19/19 16:30 Blood Anaerobic Blood Culture - Preliminary No growth in Anaerobic bottle after 48 hours. 10/19/19 16:34 Blood Aerobic Blood Culture - Preliminary No growth in Aerobic bottle after 48 hours. 10/19/19 16:34 Blood Anaerobic Blood Culture - Final PG Care Time/CCT Total # of Minutes Spent Total Time Spent with Patient: Total time spent is greater than 50% in coordination of care (as documented) at patient's floor/unit and/or counseling patient:
--- NOTE | 2019-10-24 13:01 | Hospitalist Progress Note ---
Date of Service October 24, 2019 Assessment & Plan (1) Sepsis: - Persistent hypotension on 10/20 in setting of right foot infection and abd wall wound; BP has been stable over last 3-4 days. - Lactic acid level 0.9; Procal <0.05. - U/a neg; blood cultures negative. - CT A/P showed small right groin fluid collection and left anterior wall fluid collection in setting of recent bypass graft; vascular surgery following. (2) Acute hypotension: - As noted above; hold home anti-hypertensive. - Blood pressure has been stable. (3) Bone infarct: - C/o severe right heel pain - possibly related to bony infarcts noted on MRI vs. peripheral vascular disease vs. diabetic ulcer. - MRI showed multiple patchy areas mostly within distal tibia, fibula and posterior calcaneus -- possibly related to multifocal infarcts. No evidence of osteomyelitis. - Bony infarcts likely related to peripheral vascular disease. - Consulted orthopedics, acute right heel pain is not likely related to infarcts. - Oxycodone 5 mg q6hr prn mild pain, 10 mg q6hr prn moderate pain - pain has been adequately controlled with oral narcotics. (4) Foot ulcer: Unstageable Pressure ulcer of right heel - MRI showed 2 cm focal skin ulceration on right posterior heel, neg for osteomyelitis; diabetic foot ulcer with 3 areas of ulceration noted on exam. - Dressing changes QOD - clean with saline, cover with Aquacel Ag and secure with optifoam. - Continue Dapto/Aztreonam/Flagyl; consulted ID, recommend Doxy x 7 days at discharge for abd wound. - Encourage waffle boot use -- pt. has been noncompliant with wearing boots throughout the day. - Will resume home health at discharge. (5) Neuropathy: - Continue home Gabapentin as prescribed. (6) Peripheral arterial disease: - Arterial duplex: patent bypass graft to left posterior tibial artery and right limb of bifemoral graft patent to right common femoral artery. Occlusion of distal right common femoral and superficial femoral arteries, similar to Sep 2019. - Vascular consulted, appreciate input. - Continue ASA and Cilostazol as prescribed. - Resumed Coumadin 5 mg daily on 10/22 (INR was 1.4 today, caution d/t interaction with Flagyl). Monitor INR levels daily. - Has known PAD but cannot tolerate a repeat vascular procedure in right extremity until patient clears current infection. (7) Deep postoperative wound infection: - S/p debridement of abd wall wound and revision of axillary-bifem bypass graft on 09/15/19. - Has deep wound infection with h/o hematoma and secondary wound dehiscence. - Vascular consulted, s/p debridement of abd wall wound 11 cm x 4 cm x 3 cm with application of wound vac on 10/23/19. - Continue IV Dapto/Aztreonam/Flagyl. Will need Doxy x 7 days at discharge for abd wound. - Plan for wound vac change on 10/25/19. Will need to f/u with Dr. Alanis for wound vac care; insurance auth is pending for wound vac care at home. (8) Wound dehiscence: - As noted above. (9) Diabetes mellitus, type 2: - A1C is 5.3. - Holding home jardiance, metformin and trulicity. - SSI with Lantus 8 units qPM. (10) Acute kidney injury superimposed on chronic kidney disease: - Was likely prerenal related to dehydration. Creatinine is now improved. - Hold home ACEI. (11) COPD (chronic obstructive pulmonary disease): - Continue Combivent QID prn. - No acute flare noted. (12) Hypertension: - Hold home ACEI. (13) Enterococcal sepsis: - H/o, on empiric IV abx. - BC negative. (14) Streptococcal sepsis: - H/o, on broad spectrum abx. (15) Weakness: - PT/OT evaluation pending - pt. has previously refused rehab in the past. (16) Tobacco abuse: - Nicotine patch ordered. - Encourage complete tobacco cessation in setting of vascular disease. (17) DVT prophylaxis: - SCDs; continue home Coumadin. Dispo: Med/surg. Discharge pending wound vac insurance approval. Supervising Physician Co-Signing Physician Notes I have seen and examined patient with Isis Andres PA-C and agree with assessment and plan. Subjective Pt. is frustrated, would like to be discharged to home as soon as possible. Pt. is threatening to [facility] if he loses his job due to having wound vac, not being able to return to work. He is having diarrhea in setting of Colace. Pain meds worked well overnight for right heel pain -- used Oxycodone 5- 10 mg as needed. He slept well last evening due to adequate pain control. Will need wound vac approval prior to discharge. Review of Systems Review of Systems: All systems reviewed & are unremarkable except as noted in HPI & below Constitutional: + fatigue and + weakness; no fever, no chills and no anorexia Respiratory: no cough, no dyspnea and no dyspnea on exertion Cardiovascular: no chest pain, no palpitations and no edema Gastrointestinal: + diarrhea/loose stools; no abdominal pain and no nausea Genitourinary: no difficulty urinating Musculoskeletal: + joint pain; no back pain Integumentary: + non-healing lesions, + skin ulcer and + erythema Physical Exam Physical Exam: General: Resting comfortably HEENT: NC/AT; PERRLA with EOMI; [place] conjunctiva, MMM. No erythema of posterior pharynx Neck: Supple and nontender Cardiac: RRR Lungs: CTA bilaterally Abdomen: Bowel normoactive X 4; Nontender to palpation. LLQ wound with wound vac, mild bleeding. Extremities: Erythema on right heel resolved. 3 ulcers with necrotic appearing tissue noted on right posterior andrea, no significant change noted. Neuro: No focal weakness Skin: see above Results & Data Vital Signs (Past 12 Hours) Vital Signs Temp Pulse Pulse Resp BP BP Pulse Ox 10/24/19 11:17 37.2 C 90 18 144/78 H 93 10/24/19 07:22 37.0 C 104 H 16 118/75 93 10/24/19 03:10 37.1 C 101 H 18 134/75 91 Laboratory Results 10/24/19 10/24/19 10/24/19 Range/Units 11:39 07:27 06:36 WBC 7.51 (4.8-10.8) K/uL RBC 4.60 L (4.7-6.1) M/uL Hgb 14.8 (14.0-18.0) g/dL Hct 44.1 (42-52) % MCV 95.9 (80-100) fL MCH 32.2 (25-34) pg MCHC 33.6 (32-36) g/dL RDW Std Deviation 54.7 H (36.4-46.3) fL RDW Coeff of Maira 15.6 H (11.5-14.5) % Plt Count 272 (130-400) K/uL MPV 8.8 (7.4-10.4) fL PT (9.0-12.0) Seconds INR (0.9-1.1) Sodium (136-145) mmol/L Potassium (3.5-5.1) mmol/L Chloride (98-107) mmol/L Carbon Dioxide (21-32) mmol/L Anion Gap (3-11) BUN (7-18) mg/dl Creatinine (0.6-1.4) mg/dl Est Cr Clr Drug Dosing ml/min Est GFR ( Amer) Est GFR (Non-Af Amer) BUN/Creatinine Ratio (10-20) Glucose (70-99) mg/dl POC Glucose 149 H 142 H (70-99) mg/dl Calcium (8.5-10.1) mg/dl 10/24/19 10/24/19 10/23/19 Range/Units 06:36 06:36 20:22 WBC (4.8-10.8) K/uL RBC (4.7-6.1) M/uL Hgb (14.0-18.0) g/dL Hct (42-52) % MCV (80-100) fL MCH (25-34) pg MCHC (32-36) g/dL RDW Std Deviation (36.4-46.3) fL RDW Coeff of Maira (11.5-14.5) % Plt Count (130-400) K/uL MPV (7.4-10.4) fL PT 14.2 H (9.0-12.0) Seconds INR 1.4 H (0.9-1.1) Sodium 139 (136-145) mmol/L Potassium 3.6 (3.5-5.1) mmol/L Chloride 106 (98-107) mmol/L Carbon Dioxide 27 (21-32) mmol/L Anion Gap 5.0 (3-11) BUN 13 (7-18) mg/dl Creatinine 0.64 (0.6-1.4) mg/dl Est Cr Clr Drug Dosing 146.9 ml/min Est GFR ( Amer) 125.1 Est GFR (Non-Af Amer) 107.9 BUN/Creatinine Ratio 20.4 H (10-20) Glucose 132 H (70-99) mg/dl POC Glucose 208 H (70-99) mg/dl Calcium 9.2 (8.5-10.1) mg/dl 10/23/19 Range/Units 16:53 WBC (4.8-10.8) K/uL RBC (4.7-6.1) M/uL Hgb (14.0-18.0) g/dL Hct (42-52) % MCV (80-100) fL MCH (25-34) pg MCHC (32-36) g/dL RDW Std Deviation (36.4-46.3) fL RDW Coeff of Maira (11.5-14.5) % Plt Count (130-400) K/uL MPV (7.4-10.4) fL PT (9.0-12.0) Seconds INR (0.9-1.1) Sodium (136-145) mmol/L Potassium (3.5-5.1) mmol/L Chloride (98-107) mmol/L Carbon Dioxide (21-32) mmol/L Anion Gap (3-11) BUN (7-18) mg/dl Creatinine (0.6-1.4) mg/dl Est Cr Clr Drug Dosing ml/min Est GFR ( Amer) Est GFR (Non-Af Amer) BUN/Creatinine Ratio (10-20) Glucose (70-99) mg/dl POC Glucose 243 H (70-99) mg/dl Calcium (8.5-10.1) mg/dl PG Care Time/CCT Total # of Minutes Spent Total Time Spent with Patient: Total time spent is greater than 50% in coordination of care (as documented) at patient's floor/unit and/or counseling patient: (1) Streptococcal sepsis Sepsis acute organ dysfunction status: unspecified Qualified Code(s): A40.9 - Streptococcal sepsis, unspecified (2) COPD (chronic obstructive pulmonary disease) COPD type: unspecified COPD Qualified Code(s): J44.9 - Chronic obstructive pulmonary disease, unspecified (3) Hypertension Hypertension type: essential hypertension Qualified Code(s): I10 - Essential (primary) hypertension
[2019-10-24] MEDS: WARFARIN SOD 5 MG TAB PO SCH (16:56)
[2019-10-24] MEDS: INSULIN GLARGINE SOLOSTAR 100 UNITS/ML 3 ML PEN SC SCH (21:19)
[2019-10-25] MEDS: metroNIDAZOLE 500 MG/100 ML BAG IV SCH ×2 (00:57→09:45)
[2019-10-25] MEDS: DAPTOmycin 450 MG in SYRINGE 0 ML IV SCH (00:57)
[2019-10-25] MEDS: MoRPHine SULFATE 2 MG/ML CARP IV PRN ×2 (01:40→08:19)
[2019-10-25] MEDS: OXYCODONE HCL IR 5 MG TAB (IMMEDIATE RELEASE) PO PRN ×3 (06:07→18:24)
[2019-10-25 06:37] LABS: INR 1.6 (0.9-1.1); Prothrombin Time 16.3 Seconds (9.0-12.0)
[2019-10-25] MEDS: IPRATROPIUM BROMIDE/ALBUTEROL respimat INH INH PRN (08:01)
[2019-10-25] MEDS: AZTREONAM 1,000 MG in DEXTROSE 5% 100 ML IV SCH (08:36)
[2019-10-25] MEDS: cilostazoL 100 MG TAB PO SCH ×2 (08:58→20:48)
[2019-10-25] MEDS: GABAPENTIN 800 MG TAB PO SCH ×2 (08:58→20:48)
[2019-10-25] MEDS: NICOTINE 21 MG/24 HR TDSY TD SCH (08:58)
[2019-10-25] MEDS: lisinopriL 40 MG TAB PO SCH (08:58)
[2019-10-25] MEDS: FERROUS SULFATE 325 MG TAB PO SCH ×2 (08:58→18:26)
[2019-10-25] MEDS: ASPIRIN 325 MG ECTAB PO SCH (08:59)
[2019-10-25] MEDS: INSULIN ASPART 100 UNITS/ML 3 ML PEN SC SCH ×4 (09:03→20:50)
--- NOTE | 2019-10-25 14:05 | Surgery Progress Note ---
Date of Service October 25, 2019 Assessment & Plan (1) Open wound anterior abdominal wall: Pt doing well post op, abd wound healing, RLE heel eschar with early granulation at edges and well demarcated. Continue abx per ID. Waffle boots to heels. Pt ok for d/c from vascular standpoint once insurance approval for vac obtained. WIll see in office in 1-2 wks. Subjective 59 yo m with multiple medical problems, POD #2 after abd wound debridement and wound vac placement, seen in f/u today. Pt denies pain in abd wound. Admits pain R heel, controlled withmeds. Has been wearing his waffle boots per pt. Review of Systems Review of Systems: All systems reviewed & are unremarkable except as noted in HPI & below Physical Exam Constitutional: WD/WN, vitals as above cooperative; not in distress Cardiovascular: Rate/Rhythm: regular rhythm Vessels: femoral pulses present, posterior tibial pulses present (LLE palpable, RLE nonpalpable), dorsalis pedis pulses present (LLE palpable, RLE nonpalpable.), brachial pulses present and radial pulses present; + abnormal peripheral pulses Extremities: normal capillary refill Musculoskeletal: Extremities: strength 5/5 throughout Skin: + wound (L abd wound vac change today, good granulation,no odor) and + eschar (soft tissue presure area R heel, tender, mild erythema, not boggy, no odor ) Neurologic: no focal motor deficits Psychiatric: A+Ox3, euthymic affect Results & Data Vital Signs (Past 12 Hours) Vital Signs Temp Pulse Resp BP Pulse Ox 10/25/19 07:48 36.5 C 82 16 135/73 91
--- NOTE | 2019-10-25 14:24 | Hospitalist Progress Note ---
Date of Service October 25, 2019 Assessment & Plan (1) Sepsis: - Persistent hypotension on 10/20 in setting of right foot infection and abd wall wound; BP is now stable. - Lactic acid level 0.9; Procal <0.05. - U/a neg; blood cultures negative. - CT A/P showed small right groin fluid collection and left anterior wall fluid collection in setting of recent bypass graft; vascular surgery following. (2) Acute hypotension: - As noted above; resumed home Lisinopril. (3) Bone infarct: - C/o severe right heel pain - possibly related to bony infarcts noted on MRI vs. peripheral vascular disease vs. diabetic ulcer. - MRI showed multiple patchy areas mostly within distal tibia, fibula and posterior calcaneus -- possibly related to multifocal infarcts. No evidence of osteomyelitis. - Bony infarcts likely related to peripheral vascular disease. - Consulted orthopedics, acute right heel pain is not likely related to infarcts. - Oxycodone 5 mg q6hr prn mild pain, 10 mg q6hr prn moderate pain - encouraged pt. to use oral narcotics, d/c'ed IV morphine. (4) Foot ulcer: Unstageable Pressure ulcer of right heel - MRI showed 2 cm focal skin ulceration on right posterior heel, neg for osteomyelitis; diabetic foot ulcer with 3 areas of ulceration noted on exam. - Dressing changes daily - clean with saline, cover with Aquacel Ag and secure with optifoam. - Completed Dapto/Aztreonam/Flagyl x 5 days; consulted ID, convert to Doxy 100 mg BID x 7 days. - Encourage waffle boot use at all times. - Resume home health at discharge for dressing changes. (5) Neuropathy: - Continue home Gabapentin as prescribed. (6) Peripheral arterial disease: - Arterial duplex: patent bypass graft to left posterior tibial artery and right limb of bifemoral graft patent to right common femoral artery. Occlusion of distal right common femoral and superficial femoral arteries, similar to Sep 2019. - Vascular consulted, appreciate input. - Continue ASA and Cilostazol as prescribed. - Resumed Coumadin 5 mg daily on 10/22 (INR was 1.6 today, caution d/t interaction with Flagyl). Monitor INR levels daily. - Has known PAD but cannot tolerate a repeat vascular procedure in right extremity until patient clears current infection. (7) Deep postoperative wound infection: - S/p debridement of abd wall wound and revision of axillary-bifem bypass graft on 09/15/19. - Has deep wound infection with h/o hematoma and secondary wound dehiscence. - Vascular consulted, s/p debridement of abd wall wound 11 cm x 4 cm x 3 cm with application of wound vac on 10/23/19. - Completed IV Dapto/Aztreonam/Flagyl x 5 days; Doxy x 7 days per ID for abd wound. - S/p wound vac change today; was approved via insurance, can be discharged home tomorrow. F/u in vascular clinic for wound vac management with Dr. Alanis. (8) Wound dehiscence: - As noted above. (9) Diabetes mellitus, type 2: - A1C is 5.3. - Holding home jardiance, metformin and trulicity. - SSI with Lantus 8 units qPM. (10) Acute kidney injury superimposed on chronic kidney disease: - Was likely prerenal related to dehydration. Creatinine is now improved. - Resumed home Lisinopril. (11) COPD (chronic obstructive pulmonary disease): - Continue Combivent QID prn. - No acute flare noted. (12) Hypertension: - Resumed home Lisinopril. (13) Enterococcal sepsis: - H/o, received IV abx as noted above. - BC negative. (14) Streptococcal sepsis: - H/o, received broad spectrum abx. (15) Weakness: - PT pending - pt. has previously refused rehab in the past. (16) Tobacco abuse: - Nicotine patch ordered. - Encourage complete tobacco cessation in setting of vascular disease. (17) DVT prophylaxis: - SCDs; continue home Coumadin. Dispo: Med/surg. Discharge on 10/26/19; wound vac was approved. Can start home health on Wednesday for dressing changes. F/u with Dr. Alanis in clinic for wound vac care. Supervising Physician Co-Signing Physician Notes Attending Attestation - Chart reviewed in detail, care plan d/w ADRIANNA Garzon. I agree w/ the perez components of her documentation. Complicated 59yo male with severe PAD. s/p abdominal wall wound debridement this admission with placement of wound vac. Had sepsis 2nd to abdominal wall wound and right foot ulcer/infection. Sepsis now resolved. Appreciate ID and vascular consultations. Anticipate d/c home tomorrow w/ wound vac in place. Sam Crews MD Subjective Pt. is doing well. Diarrhea now resolved. He reports pain is controlled with Oxycodone 10 mg and has been using doses frequently. Pain is located in the right heel at site of ulcer. He was also using Morphine prn doses overnight. Encouraged him to use Oxycodone, d/c'ed IV morphine to prepare for discharge. Wound vac site without discharge, additional bleeding noted. Plan for discharge likely tomorrow. Review of Systems Review of Systems: All systems reviewed & are unremarkable except as noted in HPI & below Constitutional: + fatigue and + weakness; no fever, no chills and no anorexia Respiratory: no cough, no dyspnea and no dyspnea on exertion Cardiovascular: no chest pain, no palpitations and no edema Gastrointestinal: no abdominal pain, no nausea, no vomiting, no constipation and no diarrhea/loose stools Genitourinary: no difficulty urinating Musculoskeletal: no back pain and no joint pain Integumentary: no non-healing lesions Physical Exam Physical Exam: General: Resting comfortably HEENT: NC/AT; PERRLA with EOMI; [place] conjunctiva, MMM. No erythema of posterior pharynx Neck: Supple and nontender Cardiac: RRR Lungs: CTA bilaterally Abdomen: Bowel normoactive X 4; Nontender to palpation. LLQ wound with wound vac. Extremities: 3 ulcers with necrotic appearing tissue noted on right posterior heel, no significant change noted. Neuro: No focal weakness Skin: see above Results & Data Vital Signs (Past 12 Hours) Vital Signs Temp Pulse Resp BP Pulse Ox 10/25/19 07:48 36.5 C 82 16 135/73 91 Laboratory Results 10/25/19 10/25/19 10/25/19 Range/Units 12:11 08:20 06:03 PT 16.3 H (9.0-12.0) Seconds INR 1.6 H (0.9-1.1) POC Glucose 172 H 143 H (70-99) mg/dl 10/24/19 10/24/19 Range/Units 20:54 17:09 PT (9.0-12.0) Seconds INR (0.9-1.1) POC Glucose 168 H 195 H (70-99) mg/dl PG Care Time/CCT Total # of Minutes Spent Total Time Spent with Patient: Total time spent is greater than 50% in coordination of care (as documented) at patient's floor/unit and/or counseling patient: (1) Streptococcal sepsis Sepsis acute organ dysfunction status: unspecified Qualified Code(s): A40.9 - Streptococcal sepsis, unspecified (2) COPD (chronic obstructive pulmonary disease) COPD type: unspecified COPD Qualified Code(s): J44.9 - Chronic obstructive pulmonary disease, unspecified (3) Hypertension Hypertension type: essential hypertension Qualified Code(s): I10 - Essential (primary) hypertension
[2019-10-25] MEDS: WARFARIN SOD 5 MG TAB PO SCH (17:02)
[2019-10-25] MEDS ORDERED: OXYCODONE HCL IR 5 MG TAB (IMMEDIATE RELEASE) PO PRN (17:14)
[2019-10-25] MEDS ORDERED: MoRPHine SULFATE 2 MG/ML CARP IV STA (17:29)
[2019-10-25] MEDS ORDERED: MoRPHine SULFATE 2 MG/ML CARP ONE (17:42)
[2019-10-25] MEDS: DOXYCYCLINE HYCLATE 100 MG CAP PO SCH (20:48)
[2019-10-25] MEDS: INSULIN GLARGINE SOLOSTAR 100 UNITS/ML 3 ML PEN SC SCH (20:50)
[2019-10-26] MEDS: OXYCODONE HCL IR 5 MG TAB (IMMEDIATE RELEASE) PO PRN ×2 (00:21→07:32)
[2019-10-26 07:25] LABS: Hematocrit (blood only) 42.5 % (42-52); Mean Corpuscular Hemoglobin 31.7 pg (25-34); Mean Corpuscular Hgb Conc 32.9 g/dL (32-36); Mean Corpuscular Volume 96.4 fL (80-100); Mean Platelet Volume 8.9 fL (7.4-10.4); Platelet Count 232 K/uL (130-400); RDW Coefficient of Variation 15.7 % (11.5-14.5); RDW Standard Deviation 55.5 fL (36.4-46.3); Red Blood Count 4.41 M/uL (4.7-6.1); White Blood Count 7.01 K/uL (4.8-10.8)
[2019-10-26] MEDS: IPRATROPIUM BROMIDE/ALBUTEROL respimat INH INH PRN (07:25)
[2019-10-26 07:30] LABS: INR 2.1 (0.9-1.1); Prothrombin Time 20.3 Seconds (9.0-12.0)
[2019-10-26 08:00] LABS: BUN Creatinine Ratio 21.7 (10-20); Calcium 8.8 mg/dl (8.5-10.1); Creatinine Clr Calc Pharmacy 129.9 ml/min; Est GFR (African American) 123.5; Est GFR (Non-African American) 106.6; Potassium 3.6 mmol/L (3.5-5.1)
[2019-10-26] MEDS: NICOTINE 21 MG/24 HR TDSY TD SCH (09:00)
[2019-10-26] MEDS: GABAPENTIN 800 MG TAB PO SCH (09:00)
[2019-10-26] MEDS: ASPIRIN 325 MG ECTAB PO SCH (09:00)
[2019-10-26] MEDS: cilostazoL 100 MG TAB PO SCH (09:00)
[2019-10-26] MEDS: DOXYCYCLINE HYCLATE 100 MG CAP PO SCH (09:00)
[2019-10-26] MEDS: FERROUS SULFATE 325 MG TAB PO SCH (09:00)
[2019-10-26] MEDS: lisinopriL 40 MG TAB PO SCH (09:01)
[2019-10-26] MEDS: INSULIN ASPART 100 UNITS/ML 3 ML PEN SC SCH (09:02)
--- NOTE | 2019-10-26 18:42 | Discharge Summary ---
Date of Service October 26, 2019 Admission HPI Per Admitting Provider The patient is a 59-year-old male past medical history including severe peripheral arterial disease, peripheral neuropathy, wound dehiscence, postop hemorrhage from incision, hypotension, circulatory shock, strep sepsis, diabetes mellitus, COPD, JAMES on CPAP, enterococcal sepsis, infected prosthetic vascular graft and acute blood loss postoperative anemia. His nurse called Dr. Alanis's office today due to worsening right heel pain, and was advised to come to emergency department. The patient does have nursing come on a daily basis to change dressings in his left lower quadrant abdominal wound. Principal Diagnosis Infected Groin and Abdominal Wound Discharge Exam Constitutional WD/WN, vitals as above Eyes + anicteric sclerae ENMT Ears: no hearing impairment Neck trachea midline Respiratory normal respiratory effort, lungs clear to auscultation Cardiovascular RRR, no murmur, no edema Gastrointestinal (Abdomen) Inspection/Auscultation: normal bowel sounds Percussion/Palpation: abdomen soft; abdomen nontender Wound vac present Musculoskeletal Head/Neck/Chest: normocephalic and head atraumatic Neurologic moves all extremities Psychiatric A+Ox3, euthymic affect Discharge Data Allergies Allergy/AdvReac Type Severity Reaction Status Date / Time Penicillins Allergy Severe THROAT Verified 11/02/19 17:38 SWELLS AND HIVES Consultations 10/19/19 20:26 ED Decision to Admit Stat 10/19/19 23:50 Consult Case Management - Discharge Planning Routine Consult Vascular Surgery Routine 10/21/19 17:28 Consult Orthopedic Surgery Routine 10/23/19 14:29 Consult Infectious Diseases Routine Procedures Performed Operation Date: 10/23/19 11:20 Actual Procedures p Debridement of Abdominal Wall Wound 11cm x 4cm x 3cm, With Application Of Wound Vac(Not Applicable) - Denis Alanis MD Ordered Studies 10/19/19 16:09 CT abd pelvis IV con only Stat US arterial duplex LE BI Stat 10/21/19 09:13 MR ankle RT wo/w con Routine Hospital Course (1) Sepsis: - Persistent hypotension on 10/20 in setting of right foot infection and abd wall wound; BP is now stable; H/O enterococcal and streptococcal septicemia in the past -- Overall dose have soft blood pressures and asymptomatic - suspect some could be from needing to lower chronic BP medications - see discussion below - Lactic acid level 0.9; Procal <0.05. - U/a neg; blood cultures negative. - CT A/P showed small right groin fluid collection and left anterior wall fluid collection in setting of recent bypass graft; vascular surgery followed (2) Bone infarct: - C/O severe right heel pain - possibly related to bony infarcts noted on MRI vs. peripheral vascular disease vs. diabetic ulcer. - MRI showed multiple patchy areas mostly within distal tibia, fibula and posterior calcaneus -- possibly related to multifocal infarcts. No evidence of osteomyelitis. - Bony infarcts likely related to peripheral vascular disease. - Consulted orthopedics - acute right heel pain is not likely related to infarcts. - Had recent Rx for hydrocodone/acetaminophen in Oct 2019 that was filled a few days prior to admission and can continue this as needed (3) Foot ulcer: Unstageable Pressure ulcer of right heel - MRI showed 2 cm focal skin ulceration on right posterior heel, neg for osteomyelitis; diabetic foot ulcer with 3 areas of ulceration noted on exam. - Dressing changes daily - clean with saline, cover with Aquacel Ag and secure with optifoam. - Completed Dapto/Aztreonam/Flagyl x 5 days; consulted ID, convert to Doxy 100 mg BID x 7 days. - Encourage waffle boot use at all times. - Resume home health at discharge for dressing changes (4) Neuropathy: - Continue home Gabapentin as prescribed. (5) Peripheral arterial disease: - Arterial duplex: patent bypass graft to left posterior tibial artery and right limb of bifemoral graft patent to right common femoral artery. Occlusion of distal right common femoral and superficial femoral arteries, similar to Sep 2019. - Vascular consulted - Continue ASA and Cilostazol as prescribed. - Resumed Coumadin 5 mg daily on 10/22 (INR was 2.1 today, caution d/t interaction with antibiotics). Monitor INR levels daily. - Has known PAD but cannot tolerate a repeat vascular procedure in right extremity until patient clears current infection (6) Deep postoperative wound infection: - S/P debridement of abd wall wound and revision of axillary-bifem bypass graft on 09/15/19. - Has deep wound infection with h/o hematoma and secondary wound dehiscence. - Vascular consulted, s/p debridement of abd wall wound 11 cm x 4 cm x 3 cm with application of wound vac on 10/23/19. - Completed IV Dapto/Aztreonam/Flagyl x 5 days; Doxy x 7 days per ID for abd wound. - S/P wound vac change today; was approved via insurance; F/U in vascular clinic for wound vac management with Dr. Alanis. (7) Wound dehiscence: - As noted above. (8) Diabetes mellitus, type 2: - A1C is 5.3; continue home regimen (9) Acute kidney injury superimposed on chronic kidney disease: - Was likely prerenal related to dehydration. Creatinine is now improved (10) COPD (chronic obstructive pulmonary disease): - Continue Combivent QID prn. - No acute flare noted (11) Hypertension: - Some lower BPs may have been from infectious etiology. However when improved his Lisinopril was restarted which resulted in soft BPs. He was a symptomatic with them but did advise to reduce Lisinopril to 20 mg daily and monitor his BP; depending on his BP trend may need off this medication however given his T2DM this medication could give renal protection (12) Weakness: - PT pending - pt. has previously refused rehab in the past. (13) Tobacco abuse: - Encourage complete tobacco cessation in setting of vascular disease. Total Time Total Time Spent Total Time Spent (In Minutes): Greater than 30 minutes Discharge Plan Discharge Items Patient Disposition: Home - Home Health Services Reason For Visit: DIABETIC FOOT ULCER,SEVERE PAD Discharge Diagnosis: Diabetic Foot Ulcer, Left lower quadrant abdominal wound with wound vac Condition on Discharge: Fair Goals: You have been hospitalized for an acute medical problem. During your stay at [facility], we have made an effort to correct the problem that brought you to the hospital while keeping you as comfortable as possible. Medications were used to bring your condition under control and your discharge instructions will include directions for any medications you should take after l eaving the hospital. Please make sure you see your Primary Care Provider as part of your follow up plan. Activity: As commented below Exercise/Sports: Wait until after follow-up appointment Non-emergency contact: Primary Care Provider and Surgeon Call non-emergency contact if: you have any medication questions, your symptoms worsen, you have a fever, your wound has increased redness, your wound has increased drainage and your wound pain has increased Follow-up/Referrals: Denis Alanis MD [Physician] - 11/06/19 1:15 pm (Please, follow up with Dr. Alanis on WednesdayNovember 06 at 1:15 pm. *If you need to change this appointment, call the office at [phone].) Luis Lemon M.D. [Primary Care Provider] - 10/31/19 1:00 pm (Please, follow up at Dr. Luis Lemon's office with his associate, Dr. Chang, on WednesdayOctober 31 at 1:00 pm. *If you need to change this appointment, call their office at [phone].) Diet: Carb Consistent or DM2 and Heart Healthy Addtl Attending Provider Instructions: 1. Diabetic Foot Ulcer * Home health has been arranged for wound care. * Please continue to clean area with saline, cover with Aquacel Ag and secure with optifoam -- dressing will need to be changed daily. - you will have home services to help with this * Please wear waffle boots when you are in a seated position to alleviate pressure from the ulcer site. * Continue Hydrocodone/Tylenol 10 mg as prescribed. You had a prescription sent/filled at the beginning of the month. Please discuss with your family doctor if this medication is not helping your pain to see of alternatives 2. Abdominal Wound * Status post wound vac placement. * You will need to follow up with Dr. Alanis in the clinic for wound vac management. * Please take Doxycycline 100 mg twice daily for 7 day course. You can stop your previous antibiotics and continue this at the current time. If needed you can follow up with Dr. Mariscal ([facility]) if needed 3. Peripheral arterial disease * Please continue Coumadin, Aspirin and Cilostazol as prescribed. * You will need to follow up for PT/INR levels as an outpatient. Your INR (Coumadin level) is 2.1 currently and will need to continue to routinely monitor this and adjust Coumadin dosing as advised by your doctor 4. High Blood Pressure - Your blood pressures tend to be normal to low normal. It is possible the blood pressure medication may be too much for you now. Would recommend reducing the Lisinopril to 20 mg daily. Please discuss with your family doctor about your blood pressures and monitor them. 5. Tobacco abuse * Discontinue use of all tobacco containing products at home to prevent progression of vascular disease. Pending Studies at Discharge: No Stand-Alone Forms: [facility], Smoking Cessation Medications and DC Order Prescriptions: Continued cilostazol 100 mg Tablet 100 mg PO BID RF: 0 gabapentin [Neurontin] 800 mg Tablet 800 mg PO BID RF: 0 Trulicity 0.75 mg/0.5 mL Pen Injector 0.75 mg SUBCUT SA RF: 0 Tresudeshawn EspinaloStar U-300 Insulin 300 unit/mL (1.5 mL) Insulin Pen 15 unit SUBCUT QPM RF: 0 aspirin [Cinthia Aspirin] 325 mg Tablet 325 mg PO QAM RF: 0 metformin 1,000 mg Tablet 1,000 mg PO BID RF: 0 albuterol sulfate [Ventolin HFA] 90 mcg/actuation Hfa Aerosol Inhaler 2 puff INHALATION QID PRN (Reason: Shortness Of Breath) RF: 0 Jardiance 10 mg Tablet 10 mg PO QAM RF: 0 Combivent Respimat 20-100 mcg/actuation Mist 2 puff inhalation QID PRN (Reason: Shortness Of Breath Or Wheezing) RF: 0 warfarin [Coumadin] 5 mg tablet 5 mg PO QDD RF: 0 ferrous sulfate 325 mg (65 mg iron) Tablet,Delayed Release (Dr/Ec) 325 mg PO BIDM Qty: 60 RF: 0 Changed lisinopril 40 mg Tablet 20 mg PO QAM Qty: 0 RF: 0 Discontinued hydrocodone-acetaminophen [Clare] 5-325 mg tablet 1 tab PO Q6H PRN (Reason: pain) Qty: 30 RF: 0 levofloxacin 500 mg tablet 500 mg PO QAM RF: 0 sulfamethoxazole-trimethoprim 800-160 mg tablet 1 tab PO BID RF: 0 docusate sodium 100 mg Capsule 100 mg PO BID Qty: 60 RF: 0 No Action hydrocodone-acetaminophen [Clare] 5-325 mg tablet 2 tab PO Q6H PRN (Reason: Pain) RF: 0 Discharge Orders: Discharge Order (Routine); Ordered 10/26/19 Ordered By: Renee Cameron Admission Data Admit Date/Time: 10/19/19 21:56 Attending Provider: Sam Crews Admit Provider: Raman Chaney Primary Care Provider: Luis Lemon Other Providers: Denis Alanis ; Fady Petersen ; Claudette Mariscal Other Interventions: Discharge Summary Assessment (RN) Last Done: 10/26/19 10:50 DC Date/Time DO NOT enter until pt leaves facility: 10/26/19 12:04 Supervising Physician Co-Signing Physician Notes Attending Attestation and Discharge Note: Pt seen/examined, chart reviewed in detail, discharge care plan d/w ADRIANNA Cameron. I agree w/ the perez components of her discharge documentation. Complicated 59yo male with severe PAD. s/p left-sided abdominal wall wound debridement this admission with placement of wound vac. Had sepsis 2nd to abdominal wall wound and right foot ulcer/infection. Sepsis now resolved. Multidisciplinary care team including ID, wound care, and vascular surgery were all heavily involved in his care. ID recommending additional 7-day course of PO doxycycline post-d/c for right foot wound/ulcer, abd wall wound, etc. Discharge exam: gen - NAD heart - RRR, s1 s2 lungs - CTA b/l abd - soft; NT; wound vac in place over left lower abdominal wall wound ext - right groin with healed incision/wound; right foot - heel ulcer clean, no purulent drainage, no surrounding cellulitis vascular - foot pulses b/l 1-2+, cap refill 2 sec, no peripheral edema Will need very close f/u with PCP, wound, and vascular post-d/c. Remains on asa, pletal for severe PAD. Sam Crews MD Coding Level of Care Code D/C Day Management >30 mins Diagnoses Sepsis A41.9 Bone infarct M87.9 Foot ulcer L97.509 Neuropathy G62.9 Peripheral arterial disease I73.9 Deep postoperative wound infection T81.42XA Wound dehiscence T81.30XA Diabetes mellitus, type 2 E11.9 Acute kidney injury superimposed on chronic kidney disease N17.9; N18.9 COPD (chronic obstructive pulmonary disease) J44.9 COPD type: unspecified COPD Hypertension I10 Hypertension type: essential hypertension Weakness R53.1 Tobacco abuse Z72.0
== END 2019-10-26 12:04 | disposition home health service (06) | DRG 856 ==
LOC: ED 15:32 → SUATTDRO 21:56 → 2N 21:56 → 3N 10-24 15:59

== ENCOUNTER 2019-11-02 15:25 | Inpatient (IN) ==
--- NOTE | 2019-11-02 16:13 | Emergency Department Note ---
Entered by Jovanna Thompson acting as a scribe for History of Present Illness General Chief complaint: Foot Injury/Pain Stated complaint: EXTREME PAIN IN LT FOOT,SWOLLEN Time Seen by Provider: 11/02/19 15:46 Source: patient History of Present Illness Onset (ago): day(s) (yesterday) Location: left (foot) Pain Consistency: + other (worsening) Maximum Pain Intensity: 10 Current Pain Intensity: 10 Quality: + other (left foot pain) Associated symptoms: + other (Positive redness, swelling, and soreness to his left foot. ) The patient is a 59 year old male who presents to the ED with complaints of left foot pain. He reports he had a femoral popliteal artery replaced in his left leg a few months ago by Dr. Alanis, Vascular Surgery. He states his left foot pain began yesterday and worsened throughout the night. Currently, he notes his left foot is very red, swollen, and sore. He rates his pain as a 10/10 in severity. He states his home health nurse came to his house today and could not find a pulse on his left foot. Home Medications Home Medications Medication Instructions Recorded Confirmed Type Combivent Respimat 2 puff INHALATION QID PRN 05/01/19 11/02/19 History Jardiance 10 mg PO QAM 05/01/19 11/02/19 History Toujeo SoloStar U-300 Insulin 15 unit SUBCUT QPM 05/01/19 11/02/19 History Trulicity 0.75 mg SUBCUT SA 05/01/19 11/02/19 History albuterol sulfate [Ventolin HFA] 2 puff INHALATION QID PRN 05/01/19 11/02/19 History aspirin [Cinthia Aspirin] 325 mg PO QAM 05/01/19 11/02/19 History cilostazol 100 mg PO BID 05/01/19 11/02/19 History gabapentin [Neurontin] 800 mg PO BID 05/01/19 11/02/19 History metformin 1,000 mg PO BID 05/01/19 11/02/19 History ferrous sulfate 325 mg PO BIDM #60 tab 08/01/19 11/02/19 Rx warfarin [Coumadin] 5 mg PO QDD 10/19/19 11/02/19 History lisinopril 20 mg PO QAM #0 tab 10/26/19 11/02/19 Rx hydrocodone-acetaminophen [Stonewall] 2 tab PO Q6H PRN 11/02/19 11/02/19 History Allergies Allergy/AdvReac Type Severity Reaction Status Date / Time Penicillins Allergy Severe THROAT Verified 11/02/19 17:38 SWEROSANNE AND HIVSEKOU Past Med/Surg History Medical History Arthritis Chronic back pain Chronic obstructive pulmonary disease Diabetes mellitus, type 2 Diabetic neuropathy, type II diabetes mellitus Diverticulitis (Resolved) History of transfusion Hypertension Neuropathy PVD (peripheral vascular disease) Sleep apnea CPAP HS SOB (shortness of breath) on exertion 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 PER PT LEFT LOWER EXTREMITY ANGIOGRAM, REVISION OF LEFT AXILLARY TO RIGHT FEMORAL BYPASS WITH INTERPOSITION OF BOVINE GRAFT: 07/21/19: Grade view 3, MAC#3, ETT 8 at [facility] History of bowel resection WITH COLOSTOMY/REVERSAL LATER History of right hip replacement S/P femoral-popliteal bypass surgery X 3-LEFT LEG (WOUND DEBRIDEMENT LEFT FOOT) Family History Mother Family history of diabetes mellitus Uncle Family history of diabetes mellitus Social History Preferred Language: Azeri Communication Ability: Effective Student Nurse Required: No Beliefs That Will Affect Care: None marital status: Current Living Situation: Spouse Current Living Situation Comment: only Feels Safe at Home: Yes Smoking Status: Current every day smoker Tobacco Type: cigarettes ; Cigarettes Per Day: 16 ; Second Hand Exposure: No ; Hx Alcohol Use: No Hx Substance Use: Yes substance use type: marijuana Last Used Substance: Unknown Review of Systems See HPI for pertinent positives & negatives. and A total of 10 systems reviewed and were otherwise negative Physical Exam Vital Signs Vital Signs - 24 hr 11/02/19 15:27 11/02/19 16:00 11/02/19 16:07 Temperature 36.4 C L Temperature Source Oral Pulse Rate 104 H 97 H Pulse Rate from SpO2 Sensor 98 H Respiratory Rate 20 18 Blood Pressure 105/57 L 108/68 Blood Pressure Mean 73 90 Pulse Oximetry 96 93 95 Oxygen Delivery Method Room Air Room Air Sepsis Recent Fever Within 48 Hours No Sepsis New/Unexplained Change in Mental Status No Sepsis Action Taken by Nursing No Action Required 11/02/19 17:30 11/02/19 18:01 Temperature Temperature Source Pulse Rate 88 88 Pulse Rate from SpO2 Sensor 88 Respiratory Rate 14 17 Blood Pressure 137/83 133/93 Blood Pressure Mean 105 111 Pulse Oximetry 94 Oxygen Delivery Method Room Air Sepsis Recent Fever Within 48 Hours Sepsis New/Unexplained Change in Mental Status Sepsis Action Taken by Nursing CONSTITUTIONAL/VITAL SIGNS: Reviewed / noted above. GENERAL: Non-toxic in appearance. INTEGUMENTARY: Warm, dry, and [place]. HEAD: Normocephalic. EYES: without scleral icterus or trauma. ENT/OROPHARYNX: clear and moist. LYMPHADENOPATHY/NECK: Is supple without lymphadenopathy or meningismus. RESPIRATORY: Lungs clear and equal. CARDIOVASCULAR: Regular rate and rhythm. GI/ABDOMEN: Soft and nontender. No organomegaly or pulsatile mass. No rebound or guarding. Normal bowel sounds. EXTREMITIES: Erythema and tenderness to the left foot. Chronic appearing ulcer in the medial malleolus. No dorsal or posterior tibial pulses were appreciated with Doppler. BACK: No CVA tenderness. NEUROLOGICAL: Intact without focal deficits. PSYCHIATRIC: normal affect. MUSCULOSKELETAL: Normally developed with good muscle tone. Course Course 1553: Previous medical records were reviewed. The patient was evaluated in room C12. A complete history and physical examination was performed. 1613: Discussed the patient's case with Sara Holm, Vascular Surgery ANH. She recommends a CT scan of the chest, abdomen, and pelvis. 1808: On reevaluation, the patient is currently complaining of left foot pain. I discussed the results and findings with him. He verbalized agreement of the treatment plan. I spoke with Dr. Alanis, Vascular Surgery. He recommends a heparin drip and for the patient to be further evaluated. He will take him to surgery tomorrow. 1823: I spoke with Dr. Oden of the [facility] Hospitalist Service. The patient will be evaluated for further management and care. Administered Medications Ioversol (Optiray 320 125ml) 119 ml IV ONCE PRN PRN Reason: Interaction Checking Stop: 11/06/19 16:57 Last Admin: 11/02/19 16:58 Dose: 119 ml Documented by: [id number] Discontinued Medications Hydromorphone HCl (Dilaudid) 2 mg IV NOW STA Stop: 11/02/19 17:17 Last Admin: 11/02/19 18:03 Dose: 2 mg Documented by: [id number] Morphine Sulfate (Morphine Sulfate) 6 mg IV NOW STA Stop: 11/02/19 16:17 Last Admin: 11/02/19 16:30 Dose: Not Given Documented by: [id number] Morphine Sulfate (Morphine Sulfate) Confirm Administered Dose 4 mg .ROUTE .STK- MED ONE Stop: 11/02/19 16:25 Last Admin: 11/02/19 16:30 Dose: 4 mg Documented by: [id number] Morphine Sulfate (Morphine Sulfate) Confirm Administered Dose 2 mg .ROUTE .STK- MED ONE Stop: 11/02/19 16:25 Last Admin: 11/02/19 16:30 Dose: 2 mg Documented by: [id number] Critical Care Time Critical Care Time: Yes Total Critical Care Time: 34 I have personally spent 34 minutes of critical care time in the direct management of this patient. This includes bedside care, interpretation of diagnostic studies, and testing, discussion with consultants, patient, and family members, and other required patient management activities. This 34 minutes is in excess of all separately billable procedures. Medical Decision Making Differential Diagnosis Differential includes cellulitis, arterial occlusion, osteomyelitis, DVT, systemic infection Medical Records Attestation: I reviewed the patient's medical records. Home Medications Current Medication List: was personally reviewed by me Laboratory Data Attestation: I reviewed the patient's lab results. Result diagrams: 11/02/19 15:56 11/02/19 15:56 Lab Results 11/02/19 11/02/19 11/02/19 Range/Units 15:56 15:56 15:56 WBC 10.56 (4.8-10.8) K/uL RBC 4.56 L (4.7-6.1) M/uL Hgb 14.3 (14.0-18.0) g/dL Hct 44.9 (42-52) % MCV 98.5 (80-100) fL MCH 31.4 (25-34) pg MCHC 31.8 L (32-36) g/dL RDW Std Deviation 57.1 H (36.4-46.3) fL RDW Coeff of Maira 15.7 H (11.5-14.5) % Plt Count 270 (130-400) K/uL MPV 9.0 (7.4-10.4) fL Immature Gran % (Auto) 0.2 % Neut % (Auto) 76.4 % Lymph % (Auto) 15.6 % [facility] % (Auto) 6.5 % Eos % (Auto) 1.0 % Baso % (Auto) 0.3 % Immature Gran # (Auto) 0.02 (0.00-0.02) K/uL Neut # (Auto) 8.06 H (1.4-6.5) K/uL Lymph # (Auto) 1.65 (1.2-3.4) K/uL [facility] # (Auto) 0.69 H (0.11-0.59) K/uL Eos # (Auto) 0.11 (0-0.5) K/uL Baso # (Auto) 0.03 (0-0.2) K/uL PT 22.0 H (9.0-12.0) Seconds INR 2.3 H (0.9-1.1) Sodium 136 (136-145) mmol/L Potassium 4.3 (3.5-5.1) mmol/L Chloride 101 (98-107) mmol/L Carbon Dioxide 29 (21-32) mmol/L Anion Gap 6.0 (3-11) BUN 14 (7-18) mg/dl Creatinine 0.79 (0.6-1.4) mg/dl Est Cr Clr Drug Dosing 121.4 ml/min Est GFR ( Amer) 114.7 Est GFR (Non-Af Amer) 99.0 BUN/Creatinine Ratio 17.2 (10-20) Glucose 154 H (70-99) mg/dl Lactate (0.4-2.0) mmol/L Calcium 9.0 (8.5-10.1) mg/dl Total Bilirubin 0.2 (0.2-1) mg/dl AST 9 L (15-37) U/L ALT 27 (12-78) U/L Alkaline Phosphatase 78 (45-117) U/L Total Creatine Kinase 35 L (39-308) U/L Total Protein 7.5 (6.4-8.2) gm/dl Albumin 3.5 (3.4-5.0) gm/dl Globulin 4.0 (2.5-4.0) gm/dl Albumin/Globulin Ratio 0.9 (0.9-2) TSH 0.538 (0.300-4.500) uIu/ml Urine Color Urine Appearance (Clear) Urine pH (4.5-7.5) Ur Specific [place] (1.000-1.030) Urine Protein (Negative) Urine Glucose (UA) (Negative) Urine Ketones (Negative) Urine Blood (Negative) Urine Nitrite (Negative) Urine Bilirubin (Negative) Urine Urobilinogen (Negative) Ur Leukocyte Esterase (Negative) 11/02/19 11/02/19 Range/Units 16:31 18:11 WBC (4.8-10.8) K/uL RBC (4.7-6.1) M/uL Hgb (14.0-18.0) g/dL Hct (42-52) % MCV (80-100) fL MCH (25-34) pg MCHC (32-36) g/dL RDW Std Deviation (36.4-46.3) fL RDW Coeff of Maira (11.5-14.5) % Plt Count (130-400) K/uL MPV (7.4-10.4) fL Immature Gran % (Auto) % Neut % (Auto) % Lymph % (Auto) % [facility] % (Auto) % Eos % (Auto) % Baso % (Auto) % Immature Gran # (Auto) (0.00-0.02) K/uL Neut # (Auto) (1.4-6.5) K/uL Lymph # (Auto) (1.2-3.4) K/uL [facility] # (Auto) (0.11-0.59) K/uL Eos # (Auto) (0-0.5) K/uL Baso # (Auto) (0-0.2) K/uL PT (9.0-12.0) Seconds INR (0.9-1.1) Sodium (136-145) mmol/L Potassium (3.5-5.1) mmol/L Chloride (98-107) mmol/L Carbon Dioxide (21-32) mmol/L Anion Gap (3-11) BUN (7-18) mg/dl Creatinine (0.6-1.4) mg/dl Est Cr Clr Drug Dosing ml/min Est GFR ( Amer) Est GFR (Non-Af Amer) BUN/Creatinine Ratio (10-20) Glucose (70-99) mg/dl Lactate 2.5 H* (0.4-2.0) mmol/L Calcium (8.5-10.1) mg/dl Total Bilirubin (0.2-1) mg/dl AST (15-37) U/L ALT (12-78) U/L Alkaline Phosphatase (45-117) U/L Total Creatine Kinase (39-308) U/L Total Protein (6.4-8.2) gm/dl Albumin (3.4-5.0) gm/dl Globulin (2.5-4.0) gm/dl Albumin/Globulin Ratio (0.9-2) TSH (0.300-4.500) uIu/ml Urine Color Yellow Urine Appearance Clear (Clear) Urine pH 5.5 (4.5-7.5) Ur Specific [place] > 1.045 H (1.000-1.030) Urine Protein Negative (Negative) Urine Glucose (UA) 3+ H (Negative) Urine Ketones Negative (Negative) Urine Blood Negative (Negative) Urine Nitrite Negative (Negative) Urine Bilirubin Negative (Negative) Urine Urobilinogen Negative (Negative) Ur Leukocyte Esterase Negative (Negative) Imaging Data Radiologist's Impression: Radiology results as stated below per my review and the radiologist's interpretation: CT ANGIOGRAM OF THE CHEST CLINICAL HISTORY: Atherosclerotic vascular disease. COMPARISON STUDY: Chest CT dated 04/21/2019. Chest x-ray dated 10/19/2019. TECHNIQUE: Following the IV administration of 119 cc of Optiray 320, CT angiogram of the chest was performed from the thoracic inlet to the upper abdomen utilizing the dissection protocol. Images are reviewed in the axial, sagittal, and coronal planes. 3-D MIPS images are created and assessed. IV contrast was administered without complication. A dose lowering technique was utilized adhering to the principles of ALARA. CT DOSE: 2154.27 mGy.cm FINDINGS: Thyroid: Imaged portions of the thyroid gland are normal in size and attenuation. Thoracic aorta: There is atherosclerotic calcification of the thoracic aorta, which is normal in caliber and demonstrates standard 3-vessel arch anatomy. No dissection is seen. There is mild stenosis the origin of the left subclavian artery. The arch vessels are otherwise patent. A left axillofemoral bypass traverses the left anterior chest wall. The visualized portions of the graft are patent. Mild fluid stranding are present around the bypass graft. Pulmonary vasculature: The pulmonary trunk is dilated measuring 3.7 cm in diameter. This suggests pulmonary artery hypertension. There are no filling defects identified in the main, lobar, or segmental pulmonary vessels to suggest pulmonary embolus. Heart: The heart is mildly enlarged and without pericardial effusion. The coronary arteries are densely calcified. Lungs and pleural spaces: Mild emphysematous change is suggested. There is no airspace consolidation or pleural effusion. Scarring/atelectasis is noted at the lung bases. The trachea is clear. No secretions are noted in the right mainstem bronchus. Foci of air trapping are noted. Mediastinum: There is no mediastinal lymphadenopathy. Ana: Clear. Axillae: There is no axillary lymphadenopathy. Upper abdomen: There is a small hiatal hernia. The liver appears steatotic. Skeletal structures: No lytic or blastic bony lesions are seen. IMPRESSION: 1. There is no aneurysm or dissection involving the thoracic aorta. 2. Visualized portions of the left axillofemoral bypass graft traversing the left chest wall are patent. 3. There is no evidence of pulmonary embolus in the main, lobar, or segmental pulmonary arteries. 4. Cardiomegaly and mild emphysema. 5. There is no airspace consolidation or pleural effusion. 6. Additional findings as above. ACT 112: Negative or not required by law. Electronically signed by: Calderon Avery M.D. 11/02/2019 5:[address] angio abd aorta runof w con CLINICAL HISTORY: 59 years-old Male presenting with vascular occlusion of the le ft leg, pain and redness in the left leg. TECHNIQUE: Multidetector CT angiography of the abdomen and pelvis and bilateral lower extremity runoff was performed 119 mL of Optiray 320. 3-D volumetric an d/or maximum intensity projection (MIP) images were subsequently reconstructed for review. IV contrast: None. One or more dose lowering techniques were used consistent with the principles of ALARA (as low as reasonably achievable), including automatic exposure control, mA or kV adjustment to individual patient size, and/or use of iterative reconstruction. Stenosis measurements were based on NASCET-like criteria (distal lumen diameter as the denominator for stenosis measurement). COMPARISON: 10/19/2019. CT DOSE (mGy.cm): The estimated cumulative dose is 2154.27. FINDINGS: [employer] topogram: Total right hip arthroplasty. Vasculature: Extensive predominantly calcified atherosclerotic plaque throughout the abdominal aorta. Minimal ectasia in the infrarenal portion measuring 22 mm in diameter. Luminal irregularity is evident due to noncalcified atherosclerotic plaque. A second site of ectasia is noted just proximal to the bifurcation with the abdominal aorta measuring 23 mm in diameter. Bilateral common iliac stents in place. Extensive atherosclerosis of the external and internal iliac arteries with significant stenosis evident. There is a minimum diameter of the right external iliac artery measuring 2.2 mm and a minimum diameter of the left external iliac artery measuring 2.1 mm. There is significant stenosis of the right common femoral artery with predominant, calcified atherosclerotic plaque in the minimal diameter of 2.1 mm. There is high-grade stenosis of the left common iliac artery without a measurable lumen though the deep femoral artery on the left is patent. A bypass graft is noted along the left lateral abdominal wall, which bifurcates with a and occluded left graft coursing along the left lower abdomen and left leg. The graft remains occluded to its insertion at the anterior tibial artery. The right bifurcation coursing along the anterior abdominal wall is patent though there is a graft stenosis with noncalcified plaque or thrombus resulting in up to 50% luminal stenosis. This inserts at the right common femoral artery. The right superficial femoral artery demonstrate extensive calcified plaque with apparent occlusion throughout its course to the level of the proximal popliteal artery, which is reconstituted presumably from collateral flow. The deep f emoral artery on the right is patent. Right popliteal artery with calcified plaque though remaining patent. Narrow caliber 3 vessels of the right lower leg are patent with scattered calcified plaque. Plantar and dorsal arteries of the right foot patent. The left superficial femoral artery likely contains a stent, which is occluded. The left SFA is occluded along its entire length beyond the stent. There is reconstitution of flow of the mid popliteal artery though the artery is narrowing caliber with extensive noncalcified and calcified atherosclerotic plaque. Narrow caliber vessels in the left lower leg with intermittent opacification of the peroneal and posterior tibial arteries and demonstrable patency of the anterior tibial artery throughout its course. Diminutive though patent dorsal artery and the left foot. Patent plantar artery. Remaining abdomen and pelvis: Lung bases: Normal heart size. No pericardial or pleural effusion. Mild mosaic attenuation. Minimal bibasilar atelectasis. Liver: Normal morphology. Density suggestive of hepatic steatosis. No focal lesion allowing for the early arterial phase of contrast. Patent hepatic vasculature. Biliary: No intrahepatic or extrahepatic biliary ductal dilatation. Normal gallbladder. Pancreas: Moderate parenchymal atrophy. Spleen: Normal. Adrenal glands: Thickening of the bilateral adrenal glands. An underlying nodule is suspected in the right adrenal gland measuring 13 mm, unchanged from prior and statistically most likely to represent a benign adenoma. Kidneys and ureters: Normal. No hydronephrosis. Extensive atherosclerosis of the bilateral single main renal arteries. Trace nonspecific perinephric fluid and/or fat stranding. Ureters nondistended. Bladder: Normal. Pelvic organs: Prostate and seminal vesicles normal. Bowel: A colocolonic anastomosis is noted at the upper rectum likely indicating partial sigmoidectomy. Mild stool burden throughout normal caliber colon. The appendix is atrophic. No bowel obstruction. Peritoneal cavity: No free fluid or intraperitoneal gas. Lymph nodes: No enlarged lymph nodes in the abdomen or pelvis. Abdominal wall: Postsurgical changes of the bilateral inguinal regions as well as along the course of the bypass grafts. A small hematoma is suspected in the right suprapubic/inguinal region measuring 3 cm (series 3 image 460), unchanged from prior. The open wound along the left anterior abdominal wall has decreased in size slightly. A persistent track or old graft extends to the right sided anterior abdominal wall graft. Musculoskeletal: Bilateral subcutaneous edema and skin thickening in the feet. Fatty atrophy of musculature noted in the lower extremities. Total right hip arthroplasty. Degenerative changes of the spine. IMPRESSION: 1. Left anterior abdominal wall graft patent along the right branch with less than 50% in-stent stenosis and occlusion of the left lateral abdominal wall branch. The right branch inserts onto the right common femoral artery and the left branch inserts onto the left anterior tibial artery. 2. Multifocal mild ectasia of the abdominal aorta. 3. Severe stenosis of the bilateral external iliac arteries. 4. Occlusion of the left superficial femoral artery to the level of the proximal right popliteal artery. 5. Occlusion of the left superficial femoral artery to the level of the mid left popliteal artery. 6. Diminutive though patent right lower leg and right foot arteries. 7. Diminutive and only intermittently patent left lower leg arteries. The predominantly patent artery is the left anterior tibial artery with minimal flow in the left posterior tibial and peroneal arteries. 8. Greater plantar and dorsal flow to the left foot. 9. Persistent small hematoma in the right suprapubic/right inguinal region. 10. Anterior abdominal wall wound with slight interval healing. 11. Postsurgical changes of partial sigmoidectomy. ACT 112: Negative or not required by law. Electronically signed by: Shree Shafer M.D. 11/02/2019 5:37 PM ECG Data Attestation: I personally reviewed and interpreted this ECG as follows: Indication: + other (left foot pain) Rate (beats per minute): 97 Rhythm: + sinus rhythm ECG ST segments: + T-wave inversions (Anterior); no ST elevation ECG Findings: no PVCs Blood Pressure Blood Pressure Findings: Low blood pressure Blood Pressure Disposition: further management by hospitalist MDM Narrative This is a 59-year-old male who presents to the ED with a chief complaint of left foot pain. Symptoms started yesterday. They also noticed redness that started yesterday. They contacted Dr. Alanis's office and he was told to come in here. The patient does have history of a recent abdominal wall infection that has a vacuum dressing in place. The patient's exam reveals that the left foot is slightly cooler than the right. It is erythematous from the ankle down. It is tender to touch. There is also a chronic appearing calcification/ulcer to the medial malleolus region. Pulses were not present on manual evaluation or on Doppler. A CT scan of the chest, abdomen pelvis was performed. Details are listed above. The patient appears to have an occlusion of his graft leading to the left leg. The results of the test were discussed with Dr. Alanis. He would like the patient placed on IV heparin. The patient's INR is currently 2.3. He will plan on surgery tomorrow for the patient. I spoke with Dr. Contreras from the hospitalist service. She will see the patient for further inpatient evaluation and care. Impression & Plan Vascular occlusion, Ischemic pain of left foot Discharge Plan Visit Data Chief Complaint: Foot Injury/Pain Stated Complaint: EXTREME PAIN IN LT FOOT,SWOLLEN ED Provider: Randolph Hare Discharge Problem: Vascular occlusion, Ischemic pain of left foot Patient Disposition: Being Evaluated by Hospitalist Forms Stand Alone Forms: My [facility] [employer] Prescriptions Prescriptions: No Action cilostazol 100 mg Tablet 100 mg PO BID RF: 0 gabapentin [Neurontin] 800 mg Tablet 800 mg PO BID RF: 0 Trulicity 0.75 mg/0.5 mL Pen Injector 0.75 mg SUBCUT SA RF: 0 Toujeo SoloStar U-300 Insulin 300 unit/mL (1.5 mL) Insulin Pen 15 unit SUBCUT QPM RF: 0 aspirin [Cinthia Aspirin] 325 mg Tablet 325 mg PO QAM RF: 0 metformin 1,000 mg Tablet 1,000 mg PO BID RF: 0 albuterol sulfate [Ventolin HFA] 90 mcg/actuation Hfa Aerosol Inhaler 2 puff INHALATION QID PRN (Reason: Shortness Of Breath) RF: 0 Jardiance 10 mg Tablet 10 mg PO QAM RF: 0 Combivent Respimat 20-100 mcg/actuation Mist 2 puff inhalation QID PRN (Reason: Shortness Of Breath Or Wheezing) RF: 0 warfarin [Coumadin] 5 mg tablet 5 mg PO QDD RF: 0 lisinopril 40 mg Tablet 20 mg PO QAM Qty: 0 RF: 0 ferrous sulfate 325 mg (65 mg iron) Tablet,Delayed Release (Dr/Ec) 325 mg PO BIDM Qty: 60 RF: 0 hydrocodone-acetaminophen [Stonewall] 5-325 mg tablet 2 tab PO Q6H PRN (Reason: Pain) RF: 0 Referrals Referrals: Luis Lemon M.D. [Primary Care Provider] - The scribe's documentation has been prepared under my direction and personally reviewed by me in its entirety. I confirm that the note above accurately reflects all work, treatment, procedures, and medical decision making performed by me.
[2019-11-02] MEDS ORDERED: MoRPHine SULFATE 10 MG/ML CARP/VIAL IV STA (16:16)
[2019-11-02 16:24] LABS: Basophils # (auto) 0.03 K/uL (0-0.2); Basophils % (auto) 0.3 %; Eosinophils # (auto) 0.11 K/uL (0-0.5); Hematocrit (blood only) 44.9 % (42-52); Hemoglobin 14.3 g/dL (14.0-18.0); Immature Granulocytes # (auto) 0.02 K/uL (0.00-0.02); Immature Granulocytes % (auto) 0.2 %; Lymphocytes # (auto) 1.65 K/uL (1.2-3.4); Lymphocytes % (auto) 15.6 %; Mean Corpuscular Hemoglobin 31.4 pg (25-34); Mean Corpuscular Hgb Conc 31.8 g/dL (32-36); Mean Corpuscular Volume 98.5 fL (80-100); Monocytes # (auto) 0.69 K/uL (0.11-0.59); Monocytes % (auto) 6.5 %; Neutrophils # (auto) 8.06 K/uL (1.4-6.5); Neutrophils % (auto) 76.4 %; Platelet Count 270 K/uL (130-400); RDW Coefficient of Variation 15.7 % (11.5-14.5); RDW Standard Deviation 57.1 fL (36.4-46.3); Red Blood Count 4.56 M/uL (4.7-6.1); White Blood Count 10.56 K/uL (4.8-10.8)
[2019-11-02] MEDS ORDERED: MoRPHine SULFATE 4 MG/ML 1 ML CARP\\VIAL ONE (16:24)
[2019-11-02] MEDS ORDERED: MoRPHine SULFATE 2 MG/ML CARP ONE (16:24)
[2019-11-02 16:31] LABS: Albumin Level 3.5 gm/dl (3.4-5.0); BUN Creatinine Ratio 17.2 (10-20); Creatinine Clr Calc Pharmacy 121.4 ml/min; Est GFR (African American) 114.7; Potassium 4.3 mmol/L (3.5-5.1)
[2019-11-02 16:42] LABS: Albumin Globulin Ratio 0.9 (0.9-2); Bilirubin,Total 0.2 mg/dl (0.2-1); Thyroid Stimulating Hormone 0.538 uIu/ml (0.300-4.500); Total Protein 7.5 gm/dl (6.4-8.2)
[2019-11-02] MEDS ORDERED: OPTIRAY 320 125ml IV PRN (16:58)
[2019-11-02] MEDS ORDERED: HYDROmorphone INJ 2 MG/ML SYR/VIAL IV STA (17:16)
--- NOTE | 2019-11-02 17:26 | CT Scan Report ---
CT ANGIOGRAM OF THE CHEST CLINICAL HISTORY: Atherosclerotic vascular disease. COMPARISON STUDY: Chest CT dated 04/21/2019. Chest x-ray dated 10/19/2019. TECHNIQUE: Following the IV administration of 119 cc of Optiray 320, CT angiogram of the chest was pe rformed from the thoracic inlet to the upper abdomen utilizing the dissection protocol. Images are re viewed in the axial, sagittal, and coronal planes. 3-D MIPS images are created and assessed. IV contr ast was administered without complication. A dose lowering technique was utilized adhering to the pr inciples of ALA. CT DOSE: 2154.27 mGy.cm FINDINGS: Thyroid: Imaged portions of the thyroid gland are normal in size and attenuation. Thoracic aorta: There is atherosclerotic calcification of the thoracic aorta, which is normal in anamaria carla and demonstrates standard 3-vessel arch anatomy. No dissection is seen. There is mild stenosis th e origin of the left subclavian artery. The arch vessels are otherwise patent. A left axillofemoral b ypass traverses the left anterior chest wall. The visualized portions of the graft are patent. Mild f luid stranding are present around the bypass graft. Pulmonary vasculature: The pulmonary trunk is dilated measuring 3.7 cm in diameter. This suggests pul monary artery hypertension. There are no filling defects identified in the main, lobar, or segmental pulmonary vessels to suggest pulmonary embolus. Heart: The heart is mildly enlarged and without pericardial effusion. The coronary arteries are dense ly calcified. Lungs and pleural spaces: Mild emphysematous change is suggested. There is no airspace consolidation or pleural effusion. Scarring/atelectasis is noted at the lung bases. The trachea is clear. No secret ions are noted in the right mainstem bronchus. Foci of air trapping are noted. Mediastinum: There is no mediastinal lymphadenopathy. Ana: Clear. Axillae: There is no axillary lymphadenopathy. Upper abdomen: There is a small hiatal hernia. The liver appears steatotic. Skeletal structures: No lytic or blastic bony lesions are seen. IMPRESSION: 1. There is no aneurysm or dissection involving the thoracic aorta. 2. Visualized portions of the left axillofemoral bypass graft traversing the left chest wall are aguilar nt. 3. There is no evidence of pulmonary embolus in the main, lobar, or segmental pulmonary arteries. 4. Cardiomegaly and mild emphysema. 5. There is no airspace consolidation or pleural effusion. 6. Additional findings as above. ACT 112: Negative or not required by law. Electronically signed by: Calderon Avery M.D. 11/02/2019 5:25 PM
--- NOTE | 2019-11-02 17:38 | CT Scan Report ---
CT angio abd aorta runof w con CLINICAL HISTORY: 59 years-old Male presenting with vascular occlusion of the left leg, pain and redn ess in the left leg. TECHNIQUE: Multidetector CT angiography of the abdomen and pelvis and bilateral lower extremity runof f was performed 119 mL of Optiray 320. 3-D volumetric and/or maximum intensity projection (MIP) image s were subsequently reconstructed for review. IV contrast: None. One or more dose lowering techniques were used consistent with the principles of ALARA (as low as reasonably achievable), including autom atic exposure control, mA or kV adjustment to individual patient size, and/or use of iterative recons truction. Stenosis measurements were based on NASCET-like criteria (distal lumen diameter as the loli minator for stenosis measurement). COMPARISON: 10/19/2019. CT DOSE (mGy.cm): The estimated cumulative dose is 2154.27. FINDINGS: Pilot Instructor topogram: Total right hip arthroplasty. Vasculature: Extensive predominantly calcified atherosclerotic plaque throughout the abdominal aorta. Minimal ecta preethi in the infrarenal portion measuring 22 mm in diameter. Luminal irregularity is evident due to non calcified atherosclerotic plaque. A second site of ectasia is noted just proximal to the bifurcation with the abdominal aorta measuring 23 mm in diameter. Bilateral common iliac stents in place. Extensi ve atherosclerosis of the external and internal iliac arteries with significant stenosis evident. The re is a minimum diameter of the right external iliac artery measuring 2.2 mm and a minimum diameter o f the left external iliac artery measuring 2.1 mm. There is significant stenosis of the right common femoral artery with predominant, calcified atherosclerotic plaque in the minimal diameter of 2.1 mm. There is high-grade stenosis of the left common iliac artery without a measurable lumen though the de ep femoral artery on the left is patent. A bypass graft is noted along the left lateral abdominal wal l, which bifurcates with a and occluded left graft coursing along the left lower abdomen and left leg . The graft remains occluded to its insertion at the anterior tibial artery. The right bifurcation co ursing along the anterior abdominal wall is patent though there is a graft stenosis with noncalcified plaque or thrombus resulting in up to 50% luminal stenosis. This inserts at the right common femoral artery. The right superficial femoral artery demonstrate extensive calcified plaque with apparent occlusion t hroughout its course to the level of the proximal popliteal artery, which is reconstituted presumably from collateral flow. The deep femoral artery on the right is patent. Right popliteal artery with ca lcified plaque though remaining patent. Narrow caliber 3 vessels of the right lower leg are patent wi th scattered calcified plaque. Plantar and dorsal arteries of the right foot patent. The left superficial femoral artery likely contains a stent, which is occluded. The left SFA is occlu ded along its entire length beyond the stent. There is reconstitution of flow of the mid popliteal ar calderon though the artery is narrowing caliber with extensive noncalcified and calcified atherosclerotic plaque. Narrow caliber vessels in the left lower leg with intermittent opacification of the peroneal and posterior tibial arteries and demonstrable patency of the anterior tibial artery throughout its course. Diminutive though patent dorsal artery and the left foot. Patent plantar artery. Remaining abdomen and pelvis: Lung bases: Normal heart size. No pericardial or pleural effusion. Mild mosaic attenuation. Minimal b ibasilar atelectasis. Liver: Normal morphology. Density suggestive of hepatic steatosis. No focal lesion allowing for the e héctor arterial phase of contrast. Patent hepatic vasculature. Biliary: No intrahepatic or extrahepatic biliary ductal dilatation. Normal gallbladder. Pancreas: Moderate parenchymal atrophy. Spleen: Normal. Adrenal glands: Thickening of the bilateral adrenal glands. An underlying nodule is suspected in the right adrenal gland measuring 13 mm, unchanged from prior and statistically most likely to represent a benign adenoma. Kidneys and ureters: Normal. No hydronephrosis. Extensive atherosclerosis of the bilateral single harish n renal arteries. Trace nonspecific perinephric fluid and/or fat stranding. Ureters nondistended. Bladder: Normal. Pelvic organs: Prostate and seminal vesicles normal. Bowel: A colocolonic anastomosis is noted at the upper rectum likely indicating partial sigmoidectomy . Mild stool burden throughout normal caliber colon. The appendix is atrophic. No bowel obstruction. Peritoneal cavity: No free fluid or intraperitoneal gas. Lymph nodes: No enlarged lymph nodes in the abdomen or pelvis. Abdominal wall: Postsurgical changes of the bilateral inguinal regions as well as along the course of the bypass grafts. A small hematoma is suspected in the right suprapubic/inguinal region measuring 3 cm (series 3 image 460), unchanged from prior. The open wound along the left anterior abdominal wall has decreased in size slightly. A persistent track or old graft extends to the right sided anterior abdominal wall graft. Musculoskeletal: Bilateral subcutaneous edema and skin thickening in the feet. Fatty atrophy of muscu lature noted in the lower extremities. Total right hip arthroplasty. Degenerative changes of the spin e. IMPRESSION: 1. Left anterior abdominal wall graft patent along the right branch with less than 50% in-stent sten osis and occlusion of the left lateral abdominal wall branch. The right branch inserts onto the right common femoral artery and the left branch inserts onto the left anterior tibial artery. 2. Multifocal mild ectasia of the abdominal aorta. 3. Severe stenosis of the bilateral external iliac arteries. 4. Occlusion of the left superficial femoral artery to the level of the proximal right popliteal art ari. 5. Occlusion of the left superficial femoral artery to the level of the mid left popliteal artery. 6. Diminutive though patent right lower leg and right foot arteries. 7. Diminutive and only intermittently patent left lower leg arteries. The predominantly patent arter y is the left anterior tibial artery with minimal flow in the left posterior tibial and peroneal francine rene. 8. Greater plantar and dorsal flow to the left foot. 9. Persistent small hematoma in the right suprapubic/right inguinal region. 10. Anterior abdominal wall wound with slight interval healing. 11. Postsurgical changes of partial sigmoidectomy. ACT 112: Negative or not required by law. Electronically signed by: Shree Shafer M.D. 11/02/2019 5:37 PM
[2019-11-02 18:05] LABS: INR 2.3 (0.9-1.1)
[2019-11-02] MEDS ORDERED: Heparin IV Standard *NO* Bolus IV ONE (18:13)
[2019-11-02 18:22] LABS: Appearance Urine Clear (Clear); Bilirubin Urine Negative (Negative); Blood Urine Negative (Negative); Color Urine Yellow; Glucose Urine UA 3+ (Negative); Ketones Urine Negative (Negative); Leukocyte Esterase Urine Negative (Negative); Nitrite Urine Negative (Negative); Protein Urine Negative (Negative); Specific Gravity Urine > 1.045 (1.000-1.030); Urobilinogen Urine Negative (Negative); pH Urine 5.5 (4.5-7.5)
[2019-11-02] MEDS: HEPARIN SODIUM/DEXTROSE 25,000 UNITS/500 ML BAG IV SCH (19:14)
--- NOTE | 2019-11-02 19:29 | History & Physical Report ---
Date of Service November 02, 2019 Assessment & Plan (1) Vascular occlusion: Admit to PCU on telemetry Vital signs every 4 hours Lactic acid 2.5, repeat lactic acid in 4 hours. Pain management for ischemic left foot Started clindamycin 600 mg IV every 8 hours Started heparin drip without bolus per recommendation of Dr. Alanis Consult vascular surgery Continue after surgery aspirin 325 mg p.o. every morning, cilostazol 100 mg p.o. twice daily, Monitor PT, PTT INR Hold warfarin N.p.o. after midnight for the procedure Full code Present on Admission?: Yes (2) Ischemic pain of left foot: As the above (3) Diabetes mellitus, type 2: Continue two thirds of Torujeo SoloStar 10 units of 15 at home and possible hypoglycemia while patient in the hospital. Sliding scale insulin Accu-Cheks before meals and at bedtime Glycemic control per pharmacy A1c pending Hold metformin while patient is in the hospital to prevent kidney injury with IV contrast if he needs radiological studies. Present on Admission?: Yes (4) COPD (chronic obstructive pulmonary disease): Appears to be stable. Continue home medicine Combivent Respimat 2 puffs inhalation 4 times daily as needed. Albuterol sulfate 2 puffs inhalation 4 times daily as needed Present on Admission?: Yes (5) Hypertension: Blood pressure is right now well controlled. Continue lisinopril 20 mg p.o. every morning Present on Admission?: Yes (6) JAMES on CPAP: Patient has his CPAP. Continue his own CPAP. Present on Admission?: Yes History of Present Illness Chief Complaint: Left leg pain Primary Care Provider: Luis Lemon The patient is a 59 years old male with past medical history of obstructive sleep apnea on CPAP, hypertension, COPD, diabetes mellitus type 2, peripheral vascular disease, neuropathy, abdominal infection, tobacco abuse, who presents to the emergency room with a complaint of left foot pain. Patient reports that he had a femoropopliteal artery replaced in his left leg last Wednesday which was October 25/[address] Alanis vascular surgery. He states that his left foot pain began yesterday and worsened throughout the night. Currently he noted his left foot is very red swollen and sore. Patient rates his pain as a 10 of 10 in severity. He states his home health nurse came to the house today and could not find a pulse of his left foot. Patient decided to come to the emergency room to be checked. Labs are reviewed: WBCs 10.56, hemoglobin 14.3, hematocrit 44.9 platelets 270. PT 22, INR 2.3, sodium 136, potassium 4.3, chloride 101, carbon dioxide 29, anion gap 6, BUN 14, creatinine 0.79 GFR 99, glucose 154, lactate 2.5, calcium 9, bilirubin 0.2, AST 9, ALT 27, alkaline phosphatase 78, total protein 7.5, albumin 3.5, globulin 4, TSH 0.538. Urine yellow, appearance clear, specificity 1.0 45, urine protein negative, glucose 3+, urine ketones negative, urine blood negative,urine nitrate negative,urine bilirubin negative urobilinogen negative,leukocyte esterase negative.CTA abdominal aorta runof w con: Left anterior abdominal wall graft patent along with right branch with less than 50% in-stent stenosis and occlusion of the left abdominal wall branch. The right branch inserts into the right common femoral artery and the left branch inserts onto the left anterior tibial artery. Severe stenosis of the bilateral external iliac arteries. Occlusion of the left superficial femoral artery to the level of the proximal right popliteal artery. Occlusion of the left superficial femoral artery to the level of the mid left popliteal artery. Patent right lower leg and right foot arteries. Greater plantar and dorsal flow to the left foot. The predominantly patent artery is the left anterior tibial artery with minimal flow in the posterior tibial and peroneal arteries. CTA of the chest: There is no aneurysm or dissection involving the thoracic aorta. Visualized portion of the left axillofemoral bypass graft transversing the left chest wall are patent. There is no evidence of pulmonary embolus in the main, lobar or segmental pulmonary arteries. Cardiomegaly and mild emphysema. There is no airspace consolidation or pleural effusion. Decision was made to admit patient to PCU on telemetry for ishemic left foot. Allergies Allergy/AdvReac Type Severity Reaction Status Date / Time Penicillins Allergy Severe THROAT Verified 11/02/19 17:38 SWELLS AND HIVES Home Medications Home Medications Medication Instructions Recorded Confirmed Type Combivent Respimat 2 puff INHALATION QID PRN 05/01/19 11/02/19 History Jardiance 10 mg PO QAM 05/01/19 11/02/19 History Toujeo SoloStar U-300 Insulin 15 unit SUBCUT QPM 05/01/19 11/02/19 History Trulicity 0.75 mg SUBCUT SA 05/01/19 11/02/19 History albuterol sulfate [Ventolin HFA] 2 puff INHALATION QID PRN 05/01/19 11/02/19 History aspirin [Cinthia Aspirin] 325 mg PO QAM 05/01/19 11/02/19 History cilostazol 100 mg PO BID 05/01/19 11/02/19 History gabapentin [Neurontin] 800 mg PO BID 05/01/19 11/02/19 History metformin 1,000 mg PO BID 05/01/19 11/02/19 History ferrous sulfate 325 mg PO BIDM #60 tab 08/01/19 11/02/19 Rx warfarin [Coumadin] 5 mg PO QDD 10/19/19 11/02/19 History lisinopril 20 mg PO QAM #0 tab 10/26/19 11/02/19 Rx hydrocodone-acetaminophen [[place]] 2 tab PO Q6H PRN 11/02/19 11/02/19 History Past Med/Surg History Medical History Arthritis Chronic back pain Chronic obstructive pulmonary disease Diabetes mellitus, type 2 Diabetic neuropathy, type II diabetes mellitus Diverticulitis (Resolved) History of transfusion Hypertension Neuropathy PVD (peripheral vascular disease) Sleep apnea CPAP HS SOB (shortness of breath) on exertion 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 PER PT LEFT LOWER EXTREMITY ANGIOGRAM, REVISION OF LEFT AXILLARY TO RIGHT FEMORAL BYPASS WITH INTERPOSITION OF BOVINE GRAFT: 07/21/19: Grade view 3, MAC#3, ETT 8 at [facility] History of bowel resection WITH COLOSTOMY/REVERSAL LATER History of right hip replacement S/P femoral-popliteal bypass surgery X 3-LEFT LEG (WOUND DEBRIDEMENT LEFT FOOT) Family History Mother Family history of diabetes mellitus Uncle Family history of diabetes mellitus Social History Preferred Language: Filipino Communication Ability: Effective Liaison Inspection Laboratory Assistant Required: No Beliefs That Will Affect Care: None marital status: Current Living Situation: Spouse Current Living Situation Comment: only Feels Safe at Home: Yes Smoking Status: Current every day smoker Tobacco Type: cigarettes ; Cigarettes Per Day: 16 ; Second Hand Exposure: No ; Hx Alcohol Use: No Hx Substance Use: Yes substance use type: marijuana Last Used Substance: Unknown Review of Systems Review of Systems: All systems reviewed & are unremarkable except as noted in HPI & below Physical Exam Constitutional: WD/WN, vitals as above well developed and + obese Eyes: PERRL, conjunctivae normal, anicteric sclerae ENMT: external ear and nose normal, oropharynx normal Neck: trachea midline, no thyromegaly Respiratory: normal respiratory effort, lungs clear to auscultation Cardiovascular: RRR, no murmur, no edema Erythema and swelling of the left lower extremity, no pulse present at the left dorsalis pedis. Gastrointestinal (Abdomen): normal bowel sounds, soft, nontender, no hepatosplenomegaly Musculoskeletal: no cyanosis or clubbing, extremities motor strength 5/5 Psychiatric: A+Ox3, euthymic affect Lymphatic: no cervical or axillary lymphadenopathy Results & Data Vital Signs (Past 12 Hours) Vital Signs Temp Pulse Resp BP Pulse Ox 11/02/19 18:01 88 17 133/93 11/02/19 17:30 88 14 137/83 94 11/02/19 16:07 97 H 18 108/68 95 11/02/19 16:00 93 11/02/19 15:27 36.4 C L 104 H 20 105/57 L 96 Code Status & VTE Plan Code Status Full code VTE Prophylaxis Plan VTE Prophylaxis will be ordered: Yes PG Care Time/CCT Total # of Minutes Spent Total Time Spent with Patient: Total time spent is greater than 50% in coordination of care (as documented) at patient's floor/unit and/or counseling patient: Coding Level of Care Code 56201 Initial Inpt Care Lvl 3 Diagnoses Vascular occlusion I99.8 Ischemic pain of left foot M79.672; I99.9 Diabetes mellitus, type 2 E11.9 COPD (chronic obstructive pulmonary disease) J44.9 COPD type: unspecified COPD Hypertension I10 Hypertension type: essential hypertension JAMES on CPAP G47.33; Z99.89 (1) COPD (chronic obstructive pulmonary disease) COPD type: unspecified COPD Qualified Code(s): J44.9 - Chronic obstructive pulmonary disease, unspecified (2) Hypertension Hypertension type: essential hypertension Qualified Code(s): I10 - Essential (primary) hypertension
[2019-11-02] MEDS ORDERED: IPRATROPIUM BROMIDE/ALBUTEROL respimat INH INH PRN (20:48)
[2019-11-02] MEDS ORDERED: GLUCOSE 40% GEL 15 GM TUBE PO PRN (20:48)
[2019-11-02] MEDS ORDERED: POLYETHYLENE (MIRALAX) 17 GM PACK PO PRN (20:48)
[2019-11-02] MEDS ORDERED: GLUCAGON FOR INJ 1 MG VIAL SQ PRN (20:48)
[2019-11-02] MEDS ORDERED: ONDANSETRON INJ 2 MG/ML 2 ML VIAL IV PRN (20:48)
[2019-11-02] MEDS ORDERED: ALUMINUM/MAGNESIUM SUSP 30 ML UDC PO PRN (20:48)
[2019-11-02] MEDS ORDERED: MAGNESIUM HYDROXIDE SUSP 30 ML UDC PO PRN (20:48)
[2019-11-02] MEDS ORDERED: ALBUTEROL HFA 8 GM INHALER INH PRN (20:48)
[2019-11-02] MEDS ORDERED: GLUCOSE 10 TABS/TUBE PO PRN (20:48)
[2019-11-02] MEDS ORDERED: CARBOHYDRATES FOR HYPOGLYCEMIA PO PRN (20:48)
[2019-11-02] MEDS ORDERED: ACETAMINOPHEN 325 MG TAB PO PRN (20:48)
[2019-11-02] MEDS ORDERED: DEXTROSE 50% 50 ML SYRINGE IV PRN (20:48)
[2019-11-02] MEDS ORDERED: PHARMACY GLYCEMIC MGMT CONSULT PRN (20:52)
[2019-11-02] MEDS ORDERED: INSULIN GLARGINE U U SQ SCH (21:00)
[2019-11-02] MEDS: MoRPHine SULFATE 2 MG/ML CARP IV PRN ×2 (21:10→23:57)
[2019-11-02] MEDS ORDERED: INSULIN GLARGINE SOLOSTAR 100 UNITS/ML 3 ML PEN SQ SCH ×2 (21:30)
[2019-11-02] MEDS: cilostazoL 100 MG TAB PO SCH (22:15)
[2019-11-02] MEDS: GABAPENTIN 800 MG TAB PO SCH (22:15)
[2019-11-02] MEDS: INSULIN ASPART 100 UNITS/ML 3 ML PEN SC SCH (22:16)
[2019-11-02] MEDS: HYDROCODONE/ACETAMOPHEN 5/325MG TAB PO PRN (22:16)
[2019-11-02] MEDS: CLINDAMYCIN 600 MG in DEXTROSE 5% 50 ML IV SCH (22:17)
[2019-11-03 01:20] LABS: Basophils # (auto) 0.04 K/uL (0-0.2); Basophils % (auto) 0.5 %; Eosinophils % (auto) 1.2 %; Hematocrit (blood only) 41.1 % (42-52); Hemoglobin 13.4 g/dL (14.0-18.0); Immature Granulocytes # (auto) 0.01 K/uL (0.00-0.02); Immature Granulocytes % (auto) 0.1 %; Lymphocytes # (auto) 2.08 K/uL (1.2-3.4); Lymphocytes % (auto) 25.9 %; Mean Corpuscular Hemoglobin 31.7 pg (25-34); Mean Corpuscular Hgb Conc 32.6 g/dL (32-36); Mean Corpuscular Volume 97.2 fL (80-100); Mean Platelet Volume 8.5 fL (7.4-10.4); Monocytes # (auto) 0.66 K/uL (0.11-0.59); Monocytes % (auto) 8.2 %; Neutrophils # (auto) 5.13 K/uL (1.4-6.5); Neutrophils % (auto) 64.1 %; Platelet Count 242 K/uL (130-400); RDW Coefficient of Variation 15.6 % (11.5-14.5); RDW Standard Deviation 55.3 fL (36.4-46.3); Red Blood Count 4.23 M/uL (4.7-6.1); White Blood Count 8.02 K/uL (4.8-10.8)
[2019-11-03 01:45] LABS: Albumin Level 3.1 gm/dl (3.4-5.0); BUN Creatinine Ratio 17.6 (10-20); Calcium 8.8 mg/dl (8.5-10.1); Creatinine Clr Calc Pharmacy 135.6 ml/min; Est GFR (African American) 120.6; Potassium 3.9 mmol/L (3.5-5.1)
[2019-11-03 01:48] LABS: Albumin Globulin Ratio 0.8 (0.9-2); Bilirubin,Total 0.2 mg/dl (0.2-1); Globulin 3.7 gm/dl (2.5-4.0); INR 1.8 (0.9-1.1); Partial Thromboplastin Ratio 1.9; Prothrombin Time 17.5 Seconds (9.0-12.0); Total Protein 6.8 gm/dl (6.4-8.2)
[2019-11-03 02:03] LABS: Partial Thromboplastin Time 51.7 Seconds (21.0-31.0)
[2019-11-03] MEDS: MoRPHine SULFATE 2 MG/ML CARP IV PRN ×2 (04:31→06:42)
[2019-11-03 06:23] LABS: Estimated Average Glucose 120 mg/dl; Hemoglobin A1C 5.8 % (4.5-5.6)
[2019-11-03] MEDS: CLINDAMYCIN 600 MG in DEXTROSE 5% 50 ML IV SCH ×3 (06:39→22:08)
[2019-11-03] MEDS: HYDROCODONE/ACETAMOPHEN 5/325MG TAB PO PRN (07:36)
[2019-11-03] MEDS: INSULIN ASPART 100 UNITS/ML 3 ML PEN SC SCH ×4 (07:38→20:36)
[2019-11-03] MEDS: FERROUS SULFATE 325 MG TAB PO SCH ×2 (07:39→20:39)
[2019-11-03] MEDS ORDERED: HYDROmorphone INJ 0.5 MG/0.5 ML SYR IV PRN (08:23)
[2019-11-03] MEDS ORDERED: HYDROmorphone INJ 2 MG/ML SYR/VIAL IV STA (08:27)
[2019-11-03] MEDS: GABAPENTIN 800 MG TAB PO SCH ×2 (08:49→20:39)
[2019-11-03] MEDS: cilostazoL 100 MG TAB PO SCH ×2 (08:50→20:39)
[2019-11-03] MEDS: ASPIRIN 325 MG ECTAB PO SCH (08:50)
[2019-11-03] MEDS ORDERED: lisinopriL 20 MG TAB PO SCH (09:00)
--- NOTE | 2019-11-03 09:35 | Consultation ---
Date of Consultation November 03, 2019 Assessment & Plan (1) Vascular occlusion: LLE fem-distal BPG appears occluded, pt with severe pain LLE. PLanning on LLE thrombectomy with possible revision of bypass today. Pt agreeable. Of note, will change wound vac today with WOCN. Patient was seen, examined, and chart reviewed. Agree with exam and treatment plan of the Vascular PA. Patient for thrombectomy of his left axillofemoral to left post tibial bypass graft. I have discussed the risks options and benefits of the procedure with the patient. The patient understands the risks options and benefits and agrees to the procedure. (2) Ischemic pain of left foot: see above History of Present Illness Reason for Consultation: LLE ischemia Attending Physician: Sam Duran MD History of Present Illness 59 yo m with multiple medical problems, including DMII, COPD, severe PAD s/p multiple bypasses, admitted with acute occlusion of LLE fem-tib BPG, seen in consultation today. Pt well known to Dr Alanis for requiring multiple vascular interventions, most recently with revision of L axillobifem bypass using bovine conduit. Pt also s/p LLE fem-post tib bovine BPG in fall 2018, which was performed for limb salvage. Pt continues with L abd wound vac after debridement 2 wks ago. Pt states his L leg was doing ok until yesterday, when he suddenly had severe pain of the L leg and was unable to ambulate. His home nurse recommended he go to ED and notified Dr Alanis's office that pt was going to ED. Pt admits severe pain L foot worse with any palpation. Denies PETERS, fever, chest paion, SOB, abd pain, N/V, other complaints. No c/o in RLE at this time except R heel ulcer is tender. INR on arrival was therapeutic. CTA demonstrates patent ax bifem, but occluded LLE fem-tib BPG. Allergies Allergy/AdvReac Type Severity Reaction Status Date / Time Penicillins Allergy Severe THROAT Verified 11/02/19 17:38 SWELLS AND HIVES Home Medications Home Medications Medication Instructions Recorded Confirmed Type Combivent Respimat 2 puff INHALATION QID PRN 05/01/19 11/02/19 History Jardiance 10 mg PO QAM 05/01/19 11/02/19 History Toujeo SoloStar U-300 Insulin 15 unit SUBCUT QPM 05/01/19 11/02/19 History Trulicity 0.75 mg SUBCUT SA 05/01/19 11/02/19 History albuterol sulfate [Ventolin HFA] 2 puff INHALATION QID PRN 05/01/19 11/02/19 History aspirin [Cinthia Aspirin] 325 mg PO QAM 05/01/19 11/02/19 History cilostazol 100 mg PO BID 05/01/19 11/02/19 History gabapentin [Neurontin] 800 mg PO BID 05/01/19 11/02/19 History metformin 1,000 mg PO BID 05/01/19 11/02/19 History ferrous sulfate 325 mg PO BIDM #60 tab 08/01/19 11/02/19 Rx warfarin [Coumadin] 5 mg PO QDD 10/19/19 11/02/19 History lisinopril 20 mg PO QAM #0 tab 10/26/19 11/02/19 Rx hydrocodone-acetaminophen [[place]] 2 tab PO Q6H PRN 11/02/19 11/02/19 History Patient History Medical History Arthritis Chronic back pain Chronic obstructive pulmonary disease Diabetes mellitus, type 2 Diabetic neuropathy, type II diabetes mellitus Diverticulitis (Resolved) History of transfusion Hypertension Neuropathy PVD (peripheral vascular disease) Sleep apnea CPAP HS SOB (shortness of breath) on exertion 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 PER PT LEFT LOWER EXTREMITY ANGIOGRAM, REVISION OF LEFT AXILLARY TO RIGHT FEMORAL BYPASS WITH INTERPOSITION OF BOVINE GRAFT: 07/21/19: Grade view 3, MAC#3, ETT 8 at [facility] History of bowel resection WITH COLOSTOMY/REVERSAL LATER History of right hip replacement S/P femoral-popliteal bypass surgery X 3-LEFT LEG (WOUND DEBRIDEMENT LEFT FOOT) Family History Mother Family history of diabetes mellitus Uncle Family history of diabetes mellitus Social History Preferred Language: Turkish Communication Ability: Effective Chief Executive Or Managing Director Required: No Beliefs That Will Affect Care: None marital status: Current Living Situation: Spouse Current Living Situation Comment: only Feels Safe at Home: Yes Smoking Status: Unknown if ever smoked Hx Alcohol Use: No Hx Substance Use: No Review of Systems Review of Systems: All systems reviewed & are unremarkable except as noted in HPI & below Physical Exam Constitutional: WD/WN, vitals as above cooperative; not in distress Eyes: PERRL, conjunctivae normal, anicteric sclerae ENMT: external ear and nose normal, oropharynx normal Ears: no hearing impairment Neck: trachea midline, no thyromegaly Respiratory: normal respiratory effort, lungs clear to auscultation Auscultation: + diminished lung sounds Cardiovascular: RRR, no murmur, no edema Vessels: femoral pulses present, dorsalis pedis pulses present (LLE) and radial pulses present; + abnormal peripheral pulses and + posterior tibial pulses abnormal (LLE) Extremities: + abnormal capillary refill (L foot delayed, cool, erythematous) and no edema Gastrointestinal (Abdomen): normal bowel sounds, soft, nontender, no hepatosplenomegaly Inspection/Auscultation: + abdominal surgical incision (L abd wound vac in place. Other wouds healed.) Musculoskeletal: Extremities: + abnormal strength (L foot, toes,leg) and + lower extremity abnormal to inspection Left (foot cool, erythematous, exquisitely tender, medial malleolus with black eschar,) Skin: normal turgor and + eschar (R heel tender) Neurologic: moves all extremities Psychiatric: A+Ox3, euthymic affect Results & Data Vital Signs (Past 12 Hours) Vital Signs Temp Pulse Resp BP Pulse Ox 11/03/19 07:59 36.3 C L 99 H 18 106/66 91 11/03/19 03:50 36.7 C 92 H 19 111/73 96 11/03/19 00:21 36.8 C 95 H 18 116/70 95
--- NOTE | 2019-11-03 09:45 | Pharmacy Report ---
Pharmacy Glycemic Short Note 2 - Date of Service November 03, 2019 - Glycemic Short BSG Results (Last 24 hours): 11/02/19 11/02/19 11/03/19 15:56 22:07 01:05 Glucose 154 H 150 H POC Glucose 113 H 11/03/19 07:46 Glucose POC Glucose 133 H OUTPATIENT ANTIDIABETIC REGIMEN: * Toujeo 15 units SQ qPM * Jardiance 10 mg qAM, metformin 1000 mg BID * Trulicity 0.75 mg SQ on Saturdays * A1c = 5.8% 11/03/19 ASSESSMENT: * 59 yr old male with h/o of DMII, COPD, severe PAD s/p multiple bypasses. Admitted with acute occlusion of LLE fem-tib BPG. * Patient was made NPO for vascular surgery today * Fasting BSG = 133 mg/dL. This is at goal. Patient received a partial dose of Lantus last evening (8 units). Will continue reduced dose of basal insulin until patient is tolerating oral diet. * Post prandial BSGs are at goal however patient not eating at this time. Novolog may need tightened once diet is resumed. PLAN FOR INPATIENT GLYCEMIC CONTROL: * Hold outpatient oral diabetes medications * Basal insulin * Lantus SQ qHS * 10 units if NPO * 12 units if ordered diet or BSG > 180 * Bolus insulin * NovoLog per scale ACHS or Q6hrs while NPO * Goal Range: Low 110 mg/dL - High 140 mg/dL * Correction Factor: 30 mg/dL/unit * Nutritional / Prandial insulin per carb ratio of 1 unit per 10 grams CHO consumed PLAN FOR DISCHARGE: * A1c of 5.8% indicates excellent glycemic control * Continue regimen management and titration per outpatient provider
[2019-11-03] MEDS: HYDROmorphone INJ 1 MG/ML SYRINGE IV PRN ×4 (10:25→20:29)
[2019-11-03] MEDS: HEPARIN SODIUM/DEXTROSE 25,000 UNITS/500 ML BAG IV SCH ×2 (12:43→20:29)
[2019-11-03] MEDS ORDERED: MIDAZOLAM HCL 1 MG/ML 2ML VIAL ONE (14:54)
[2019-11-03] MEDS ORDERED: fentaNYL citrate 100 MCG/2 ML VIAL ONE ×2 (14:54→17:13)
[2019-11-03] MEDS ORDERED: PROPOFOL IV EMULSION 10 MG/ML 20 ML VIAL IV ONE (15:27)
[2019-11-03] MEDS ORDERED: LIDOCAINE HCL 2% 2 ML VIAL/AMP(20MG/ML) INFIL ONE (15:27)
[2019-11-03] MEDS ORDERED: GLYCOPYRROLATE 0.2 MG/ML VIAL ONE (15:27)
[2019-11-03] MEDS ORDERED: NEOSTIGMINE METHYLSULFATE 5 MG/5 ML SYR ONE (15:27)
[2019-11-03] MEDS ORDERED: ROCURONIUM BROMIDE 10 MG/ML 5 ML VIAL ONE (15:27)
[2019-11-03] MEDS ORDERED: DEXAMETHASONE SOD INJ 4 MG/ML VIAL ONE (15:27)
[2019-11-03] MEDS ORDERED: ONDANSETRON INJ 2 MG/ML 2 ML VIAL ONE (15:27)
[2019-11-03] MEDS ORDERED: HEPARIN (PORCINE) 1000 UNIT/ML 10 ML (CATH LAB USE ONLY) ONE (16:14)
[2019-11-03] MEDS ORDERED: THROMBIN 5000 UNITS KIT ONE (16:14)
[2019-11-03] MEDS ORDERED: CEFAZOLIN 250 MG/ML 1 GM VIAL ONE (16:15)
[2019-11-03] MEDS ORDERED: GELATIN SPONGE SZ 100 ONE (16:15)
--- NOTE | 2019-11-03 16:39 | Anesthesiology Consultation ---
Date of Service November 03, 2019 Assessment & Plan (1) Encounter for pre-operative examination: Chart Review Chart Review: Acceptable Risk for Surgery (case is emergent due to cold leg) and Patient NOT seen in Pre Admission Testing Consults Requested none History Surgery Operation Date: 11/03/19 14:50 Proposed Procedures p Thrombectomy of Left Leg Bypass, Possible Revision - Denis Alanis MD Height/Weight Height: 5 ft 11 in Weight: 95.1 kg Allergies Allergy/AdvReac Type Severity Reaction Status Date / Time Penicillins Allergy Severe THROAT Verified 11/02/19 17:38 SWELLS AND HIVES Medications Home Medications Medication Instructions Recorded Confirmed Last Taken Combivent Respimat 2 puff INHALATION QID PRN 05/01/19 11/02/19 11/02/19 Jardiance 10 mg PO QAM 05/01/19 11/02/19 11/02/19 Reynaldo Perkins U-300 Insulin 15 unit SUBCUT QPM 05/01/19 11/02/19 10/18/19 Trulicity 0.75 mg SUBCUT SA 05/01/19 11/02/19 10/28/19 albuterol sulfate [Ventolin HFA] 2 puff INHALATION QID PRN 05/01/19 11/02/19 11/01/19 aspirin [Cinthia Aspirin] 325 mg PO QAM 05/01/19 11/02/19 11/02/19 cilostazol 100 mg PO BID 05/01/19 11/02/19 11/02/19 gabapentin [Neurontin] 800 mg PO BID 05/01/19 11/02/19 11/02/19 metformin 1,000 mg PO BID 05/01/19 11/02/19 11/02/19 ferrous sulfate 325 mg PO BIDM #60 tab 08/01/19 11/02/19 11/02/19 warfarin [Coumadin] 5 mg PO QDD 10/19/19 11/02/19 10/18/19 lisinopril 20 mg PO QAM #0 tab 10/26/19 11/02/19 11/02/19 hydrocodone-acetaminophen [Vanlue] 2 tab PO Q6H PRN 11/02/19 11/02/19 Unknown Active Medications Generic Name Dose Route Start Last Admin Trade Name Freq PRN Reason Stop Dose Admin Hydrocodone Bitart/Acetaminophen 2 tab 11/02/19 20:48 11/03/19 07:36 Vanlue 5/325 PO 11/16/19 20:47 2 tab Q6H PRN Administration Pain Aspirin 325 mg 11/03/19 09:00 11/03/19 08:50 Ecotrin PO 12/03/19 08:59 325 mg QAM RAFA Administration Cilostazol 100 mg 11/02/19 21:00 11/03/19 08:50 Pletal PO 12/02/19 20:59 100 mg BID RAFA Administration Ferrous Sulfate 325 mg 11/03/19 08:00 11/03/19 07:39 Feosol PO 12/03/19 07:59 325 mg BIDM RAFA Administration Gabapentin 800 mg 11/02/19 21:00 11/03/19 08:49 Neurontin PO 12/02/19 20:59 800 mg BID RAFA Administration Hydromorphone HCl 1 mg 11/03/19 08:26 11/03/19 15:35 Dilaudid IV 11/17/19 08:25 1 mg Q2H PRN Administration Severe Pain Heparin Sodium/Dextrose 25,000 units in 500 mls @ 30 mls/hr 11/02/19 18:15 11/03/19 12:43 Heparin Sodium/Dextrose IV 12/02/19 18:14 1,500 units/hr .[id number] RAFA 30 mls/hr Administration Protocol 1,500 UNITS/HR Clindamycin Phosphate 600 mg/ 54 mls @ 100 mls/hr 11/02/19 22:00 11/03/19 15:00 Dextrose IV 11/12/19 21:59 Infused Q8H RAFA Infusion Insulin Aspart 0 units 11/02/19 21:30 11/03/19 12:35 Novolog Flexpen SC 12/02/19 21:29 Not Given ACHS RAFA NPO Date Last Intake of Fluids: 11/02/19 Time Last Intake of Fluids: 20:00 Date Last Intake of Solids: 11/02/19 Time Last Intake of Solids: 12:00 Past Medical History Medical History Arthritis Chronic back pain Chronic obstructive pulmonary disease Diabetes mellitus, type 2 Diabetic neuropathy, type II diabetes mellitus Diverticulitis (Resolved) History of transfusion Hypertension Neuropathy PVD (peripheral vascular disease) Sleep apnea CPAP HS SOB (shortness of breath) on exertion 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 PER PT LEFT LOWER EXTREMITY ANGIOGRAM, REVISION OF LEFT AXILLARY TO RIGHT FEMORAL BYPASS WITH INTERPOSITION OF BOVINE GRAFT: 07/21/19: Grade view 3, MAC#3, ETT 8 at [facility] History of bowel resection WITH COLOSTOMY/REVERSAL LATER History of right hip replacement S/P femoral-popliteal bypass surgery X 3-LEFT LEG (WOUND DEBRIDEMENT LEFT FOOT) Social History Smoking Status: Unknown if ever smoked tobacco type: cigarettes Smoking cigarettes per day: 16 Hx Alcohol Use: No Hx Substance Use: No substance use type: marijuana Last Used Substance: Unknown Physical Exam Vital Signs Last Vital Signs Temp 36.9 C 11/03/19 16:36 Pulse 97 H 11/03/19 16:36 Resp 20 11/03/19 16:36 BP 119/71 11/03/19 16:36 Pulse Ox 95 11/03/19 16:36 Testing Laboratory Results 11/03/19 01:05 11/03/19 01:05 PT 17.5 Seconds (9.0-12.0) H 11/03/19 01:05 INR 1.8 (0.9-1.1) H 11/03/19 01:05 APTT 51.7 Seconds (21.0-31.0) H* 11/03/19 01:05 Hemoglobin A1c 5.8 % (4.5-5.6) H 11/03/19 01:05 Urine Color Yellow 11/02/19 18:11 Urine Appearance Clear (Clear) 11/02/19 18:11 Urine pH 5.5 (4.5-7.5) 11/02/19 18:11 Ur Specific [place] > 1.045 (1.000-1.030) H 11/02/19 18:11 Urine Protein Negative (Negative) 11/02/19 18:11 Urine Glucose (UA) 3+ (Negative) H 11/02/19 18:11 Urine Ketones Negative (Negative) 11/02/19 18:11 Urine Nitrite Negative (Negative) 11/02/19 18:11 Ur Leukocyte Esterase Negative (Negative) 11/02/19 18:11 11/03/19 11/03/19 11:33 07:46 POC Glucose 134 H 133 H Electrocardiogram Date: 11/02/19 Findings: + NSR @ (97) cannot rule out anteroseptal infarct Echocardiogram Date: 06/01/19 EF: 65 LV Function: normal Valvular Disease: + MR (mild) Other Testing CT ANGIOGRAM OF THE CHEST CLINICAL HISTORY: Atherosclerotic vascular disease. COMPARISON STUDY: Chest CT dated 04/21/2019. Chest x-ray dated 10/19/2019. TECHNIQUE: Following the IV administration of 119 cc of Optiray 320, CT angiogram of the chest was performed from the thoracic inlet to the upper abdomen utilizing the dissection protocol. Images are reviewed in the axial, sagittal, and coronal planes. 3-D MIPS images are created and assessed. IV contrast was administered without complication. A dose lowering technique was utilized adhering to the principles of ALARA. CT DOSE: 2154.27 mGy.cm FINDINGS: Thyroid: Imaged portions of the thyroid gland are normal in size and attenuation. Thoracic aorta: There is atherosclerotic calcification of the thoracic aorta, which is normal in caliber and demonstrates standard 3-vessel arch anatomy. No dissection is seen. There is mild stenosis the origin of the left subclavian artery. The arch vessels are otherwise patent. A left axillofemoral bypass traverses the left anterior chest wall. The visualized portions of the graft are patent. Mild fluid stranding are present around the bypass graft. Pulmonary vasculature: The pulmonary trunk is dilated measuring 3.7 cm in diameter. This suggests pulmonary artery hypertension. There are no filling defects identified in the main, lobar, or segmental pulmonary vessels to suggest pulmonary embolus. Heart: The heart is mildly enlarged and without pericardial effusion. The coronary arteries are densely calcified. Lungs and pleural spaces: Mild emphysematous change is suggested. There is no airspace consolidation or pleural effusion. Scarring/atelectasis is noted at the lung bases. The trachea is clear. No secretions are noted in the right mainstem bronchus. Foci of air trapping are noted. Mediastinum: There is no mediastinal lymphadenopathy. Ana: Clear. Axillae: There is no axillary lymphadenopathy. Upper abdomen: There is a small hiatal hernia. The liver appears steatotic. Skeletal structures: No lytic or blastic bony lesions are seen. IMPRESSION: 1. There is no aneurysm or dissection involving the thoracic aorta. 2. Visualized portions of the left axillofemoral bypass graft traversing the left chest wall are patent. 3. There is no evidence of pulmonary embolus in the main, lobar, or segmental pulmonary arteries. 4. Cardiomegaly and mild emphysema. 5. There is no airspace consolidation or pleural effusion. 6. Additional findings as above. ACT 112: Negative or not required by law. Electronically signed by: Calderon Avery M.D. 11/02/2019 5:25 PM Dictated: 11/02/19 1716 Transcribed: 11/02/19 171
[2019-11-03] MEDS ORDERED: ATROPINE SULFATE 0.1 MG/ML 10ML SYR IV PRN (16:45)
[2019-11-03] MEDS ORDERED: HYDROmorphone INJ 1 MG/ML SYRINGE IV PRN (16:45)
[2019-11-03] MEDS ORDERED: ONDANSETRON INJ 2 MG/ML 2 ML VIAL IV PRN (16:45)
[2019-11-03] MEDS ORDERED: PHENYLEPHRINE 100MCG/ML 5ML SYR IV PRN (16:45)
[2019-11-03] MEDS ORDERED: LABETALOL HCL IV 5 MG/ML 20ML IV PRN (16:45)
[2019-11-03] MEDS ORDERED: ePHEDrine sulfate 50 MG/ML AMP IV PRN (16:45)
[2019-11-03] MEDS ORDERED: MEPERIDINE HCL 25 MG/ML CARP IV PRN (16:45)
[2019-11-03] MEDS ORDERED: ESMOLOL HCL INJ 10 MG/ML 10ML VIAL IV ONE (17:17)
[2019-11-03] MEDS ORDERED: PHENYLEPHRINE HCL 10 MG/ML VIAL ONE (17:17)
[2019-11-03] MEDS ORDERED: SUCCINYLCHOLINE CHLORIDE 20 MG/ML 10 ML VIAL ONE (17:17)
[2019-11-03] MEDS ORDERED: HEPARIN SOD (PORCINE) 1000 UNIT/ML 10 ML VIAL ONE (18:03)
--- NOTE | 2019-11-03 18:52 | Post Operative Brief Note ---
Immediate Post Op Note v1 Date of Surgery November 03, 2019 Pre & Post Diagnosis Operation Date: 11/03/19 14:50 Pre-Op Diagnosis: Vascular occlusion left lower extremity Post-Op Diagnosis: Vascular occlusion left lower extremity I identified the patient and participated in the time-out.: Yes Procedure Operation Date: 11/03/19 14:50 Actual Procedures p Thrombectomy of Left Leg Bypass, Stenting of left posterial tibial artery, arteriogram left lower extremity(Left) - Denis Alanis MD Surgeon Denis Alanis MD Retail T[employer] Sales Manager MD Sabine Estimated Blood Loss 150 Findings Consistent with Post-Op Diagnosis Anesthesia Type General Complications none Disposition Accompanied Patient To Recovery: No Disposition: Recovery Room
--- NOTE | 2019-11-03 18:57 | Procedure Note ---
Angiogram Post Procedure Fluoroscopy Time (minutes): 3.7 Radiation (mGy): 29 Contrast: 40 Post Operative Report Pre & Post Diagnosis Operation Date: 11/03/19 14:50 Pre-Op Diagnosis: Vascular occlusion left lower extremity Post-Op Diagnosis: Vascular occlusion left lower extremity I identified the patient and participated in the time-out.: Yes Procedure Operation Date: 11/03/19 14:50 Actual Procedures p Thrombectomy of Left Leg Bypass, Stenting of left posterial tibial artery, arteriogram left lower extremity(Left) - Denis Alanis MD Surgeon Francisco Alanis MD Technician Chemical Cleaning MD Sabine Estimated Blood Loss 150 Findings Consistent with Post-Op Diagnosis Specimens none Anesthesia Type General Complications none Disposition Accompanied Patient To Recovery: No Disposition: Recovery Room Indications 59-year-old gentleman with history of PAD presents with history of axillary to femoral (R) and PT (L) graft occlusion within his left lower extremity potion of bypass graft. Thrombectomy and possible stenting and angiography were recommended. I have discussed the risks options and benefits of the procedure with the patient. The patient understands the risks options and benefits and agrees to the procedure. Description of Procedure The patient was brought to the operating room and placed supine on the operating table. Prior to induction of general LMA anesthesia he was appropriately identified and the procedure confirmed. His left lower extremity was then prepped and draped in the standard sterile fashion. Preoperatively he did not have any Doppler signals present in his left lower extremity and his foot was mottled and cool to the touch. Safety timeout was performe and the patient identified.. A 4 cm incision was made on the patient's lateral thigh parallel to his bypass graft and the subcutaneous tissues dissected down and the bypass graft circumferentially freed in this area to allow for clamping. A small incision was made in the surface of the graft with an 11 blade knife and extended with Camara scissors. 2 plastic ring portions of the graft were removed to allow for eventual closure of the opening. On entry to the graft there was no active bleeding due to clot burden. A #3 Sanjeev catheter was passed into the distal portion of the graft and the distal portion of the graft was thrombectomized after several passages of the Sanjeev catheter. After backbleeding was encountered and 8 Mongolian sheath was inserted into the distal portion of the graft and secured using a vessel loop and clamped and angiography performed. This demonstrated appropriate flow through the graft into the patient's posterior tibial artery with runoff into the foot, however the area of the anastomosis appeared to be residually stenosed. Under fluoroscopic guidance, with passage first of a V18 wire, a 5 x 5 viabahn stent was deployed across the anastomosis. A 6 x 20 balloon was then deployed to expand the stent. Further angiography revealed good flow through the stent and improved flow to the foot however due to the size mismatch between stents and graft it was felt the patient would benefit from an additional 6 x 2.5 by a viabahn stent in the more proximal portion of the 5 x 5 stent to better taper from the 6 mm graft. Such as stent was deployed and a 4 x 80 balloon then inflated to expand the stent. A final angiogram was performed demonstrating greatly improved flow in this lower portion of the leg. The graft was infused with heparin, the sheath pulled and the distal portion temporarily clamped. We next turned our attention to the proximal portion of the thrombosed graft. This required several passages of a #4 Sanjeev catheter to remove the large clot burden, and ultimately 035 guidewire passage under fluoroscopy into the graft up to the region of its proximal anastomosis, passage of a #5 wire Sanjeev catheter for ultimate clot removal and buddhism of antegrade pulsatile flow. Completion angiography was performed to confirm the patency of the thrombectomized graft. 30 mL of heparinized saline were then infused through the 8 Fr sheath prior to its removal and clamping of the proximal graft. Next the graftotomy was closed using interrupted 6-0 Prolene sutures in a fashion to ensure that there was no stenosis. While sutures were tied retrograde and antegrade flow were restored to remove any air present. the graft site was packed with fibrin-soaked gel foam for hemostasis while distal pulses were Dopplered, with findings of return of a good posterior tibial signal. The Gelfoam was removed and the wound and graft site found to be hemostatic. The subcutaneous tissues were closed with interrupted 3-0 Vicryl sutures in a subcuticular layer with 4-0 Vicryl. The skin was then covered with Dermabond and sterile dressing. The patient tolerated procedure well and awoke from anesthesia without complication. He was taken to the postanesthesia recovery unit in stable condition. All sponge and instrument counts were correct at the end of the procedure. Dr. Alanis was present and scrubbed for the entirety of the procedure. I attest to the content of the Intraoperative Record and any orders documented therein. Any exceptions are noted below.
[2019-11-03] MEDS ORDERED: VISIPAQUE IV PRN (19:07)
[2019-11-03] MEDS: fentaNYL citrate 100 MCG/2 ML VIAL IV PRN ×2 (19:32→19:37)
--- NOTE | 2019-11-03 19:58 | Anesthesiology Progress Note ---
Date of Service November 03, 2019 Anesthesia Post Procedure Vital Signs Vital Signs: Temp Pulse Pulse Pulse Resp BP BP 11/03/19 19:45 36.5 C 94 H 17 11/03/19 19:35 95 H 17 11/03/19 19:25 92 H 18 11/03/19 19:15 94 H 22 11/03/19 19:06 36.1 C L 102 H 20 11/03/19 16:36 36.9 C 97 H 20 119/71 11/03/19 11:54 36.6 C 94 H 19 101/65 11/03/19 08:00 113 H 11/03/19 07:59 36.3 C L 99 H 18 106/66 11/03/19 03:50 36.7 C 92 H 19 111/73 11/03/19 00:21 36.8 C 95 H 18 116/70 11/02/19 21:27 36.7 C 89 18 120/75 11/02/19 20:00 89 18 130/76 BP Pulse Ox 11/03/19 19:45 138/67 92 11/03/19 19:35 141/67 H 93 11/03/19 19:25 138/78 95 11/03/19 19:15 132/78 96 11/03/19 19:06 159/79 H 96 11/03/19 16:36 95 11/03/19 11:54 97 11/03/19 08:00 11/03/19 07:59 91 11/03/19 03:50 96 11/03/19 00:21 95 11/02/19 21:27 99 11/02/19 20:00 Pain Intensity Left Foot: Pain Intensity: 4 Left Leg: Pain Intensity: 3 Transfer of Care Handoff Completed per policy Notes Mental Status: alert / awake / arousable and participated in evaluation Patient Amnestic to Procedure: Yes Nausea / Vomiting: adequately controlled Pain: adequately controlled Airway Patency, RR, SpO2: stable & adequate BP & HR: stable & adequate Hydration State: stable & adequate Anesthetic Complications: no major complications apparent and Pt Satisfied with anesthetic care
[2019-11-03 20:47] LABS: Basophils # (auto) 0.02 K/uL (0-0.2); Basophils % (auto) 0.2 %; Eosinophils # (auto) 0.01 K/uL (0-0.5); Eosinophils % (auto) 0.1 %; Hematocrit (blood only) 42.4 % (42-52); Hemoglobin 13.8 g/dL (14.0-18.0); Immature Granulocytes # (auto) 0.04 K/uL (0.00-0.02); Immature Granulocytes % (auto) 0.3 %; Lymphocytes # (auto) 0.67 K/uL (1.2-3.4); Mean Corpuscular Hemoglobin 31.4 pg (25-34); Mean Corpuscular Hgb Conc 32.5 g/dL (32-36); Mean Corpuscular Volume 96.4 fL (80-100); Mean Platelet Volume 8.6 fL (7.4-10.4); Monocytes # (auto) 0.32 K/uL (0.11-0.59); Monocytes % (auto) 2.4 %; Neutrophils # (auto) 12.24 K/uL (1.4-6.5); Platelet Count 216 K/uL (130-400); RDW Coefficient of Variation 15.4 % (11.5-14.5); RDW Standard Deviation 54.7 fL (36.4-46.3)
[2019-11-03] MEDS: SODIUM CHLORIDE 0.9% 500 ML IV SCH (20:58)
[2019-11-03] MEDS ORDERED: INSULIN GLARGINE SOLOSTAR 100 UNITS/ML 3 ML PEN SC SCH ×2 (21:00)
[2019-11-03 21:03] LABS: BUN Creatinine Ratio 16.6 (10-20); Calcium 8.8 mg/dl (8.5-10.1); Creatinine Clr Calc Pharmacy 152.9 ml/min; Est GFR (African American) 126.7; Est GFR (Non-African American) 109.3; Potassium 4.4 mmol/L (3.5-5.1)
--- NOTE | 2019-11-03 21:27 | Hospitalist Progress Note ---
Date of Service November 03, 2019 Assessment & Plan (1) Vascular occlusion: Left lower extremity graft occlusion. Appreciate vascular surgery management. Planning on thrombectomy today. NPO. Hold lisinopril pre-operatively. Heparin infusion gong. Patient in significant pain this morning when seen and pain medication increased - dilaudid 0.5mg q4H PRN for moderate pain, 1mg q4H for severe pain. Give 2mg now. (2) Ischemic pain of left foot: As above. (3) Diabetes mellitus, type 2: BSG well controlled at this time. Continue sliding scale insulin q6h while NPO. Lantus held last night due to NPO status. BSG ACHS HbA1C 5.8 (4) COPD (chronic obstructive pulmonary disease): Appears to be stable. Continue home medicine Combivent Respimat 2 puffs inhalation 4 times daily as needed. Albuterol sulfate 2 puffs inhalation 4 times daily as needed (5) Hypertension: Holding lisinopril pre-operatively. Can likely restart tomorrow as long as BP maintaining. (6) JAMES on CPAP: Patient has his CPAP. Continue his own CPAP. Subjective Patient with very complex vascular history with severe PAD and multiple revascularization procedures. Ax-Bifemoral bypass (unknown date at outside facility). Left femoral graft to profunda bypass 06/2019 due non healing left ankle wound and complete occlusion of SFA and severe stenosis of profunda Post operative hematoma evacuated in 07/2019 with subsequent streptococcal sepsis requiring ICU admission Subsequently that same admission the infected left limb of ax-fem graft was removed with revision left ax-R fem bypass and L ax/fem graft to prosthetic tibial bypass with application of wound VAC at that time Returned in September with hematoma in left groin and exposed graft and underwent revision of axillobifemoral graft with excision of old graft. Subsequently this graft became occluded and he was flown to [place] on 10/03 for thrombectomy Returned Oct 19 with right heel pain and open abdominal wound with subsequent debridement on 10/23 and placement of wound VAC Now returns yesterday with severe left foot pain, cool, erythematous and without a pulse. Patient currently with severe 10/10 amount of pain in left lower extremity when seen in AM. Left foot is cold to touch. No chest pain, shortness of breath. Patient reviewed post operatively. Pain much better controlled. BP 106/79, having NSS 125ml/hr 500ml post operatively. Tachycardic aroun 90-100s on telemetry (similar to pre-operatively). Review of Systems Review of Systems: All systems reviewed & are unremarkable except as noted in HPI & below Physical Exam Constitutional: well developed, + obese and + in distress (from pain) Eyes: + anicteric sclerae; pupils not irregular ENMT: external ear and nose normal, oropharynx normal Neck: normal visual inspection and trachea midline Respiratory: normal respiratory effort; no respiratory distress, no labored breathing, no retractions and does not use accessory muscles Auscultation: lungs clear to auscultation bilaterally Cardiovascular: Rate/Rhythm: regular rate and regular rhythm Heart Sounds: no murmur Vessels: radial pulses present; + posterior tibial pulses abnormal (left sided) Extremities: + edema (left foot); + abnormal capillary refill Gastrointestinal (Abdomen): Inspection/Auscultation: abdomen normal to inspection (wound vac in place) and normal bowel sounds Percussion/Palpation: abdomen soft; abdomen nontender, no guarding and abdomen not rigid Musculoskeletal: Extremities: + lower extremity abnormal to inspection (erythematous, cool to touch left foot) Left (foot cool, erythematous, exquisitely tender, medial malleolus with black eschar,) Skin: + ulcer (unstageable right posterior heel ulcer) and + eschar (left medial ankle) Neurologic: moves all extremities and awake; not confused Psychiatric: Orientation: alert and oriented x 3 Results & Data Vital Signs (Past 12 Hours) Vital Signs Temp Pulse Pulse Resp BP BP Pulse Ox 11/03/19 20:18 37.6 C H 102 H 20 129/74 94 11/03/19 19:55 106 H 13 140/70 92 11/03/19 19:45 36.5 C 94 H 17 138/67 92 11/03/19 19:35 95 H 17 141/67 H 93 11/03/19 19:25 92 H 18 138/78 95 11/03/19 19:15 94 H 22 132/78 96 11/03/19 19:06 36.1 C L 102 H 20 159/79 H 96 11/03/19 16:36 36.9 C 97 H 20 119/71 95 11/03/19 11:54 36.6 C 94 H 19 101/65 97 PG Care Time/CCT Total # of Minutes Spent Total Time Spent with Patient: Total time spent is greater than 50% in coordination of care (as documented) at patient's floor/unit and/or counseling patient: Coding Level of Care Code 96159 Subseq Hosp Care Lvl 3 Diagnoses Vascular occlusion I99.8 Ischemic pain of left foot M79.672; I99.9 Diabetes mellitus, type 2 E11.51; Z79.4 Diabetes mellitus fci insulin use: with fci use Diabetes mellitus complication status: with circulatory complication Diabetes mellitus complication detail: with peripheral angiopathy without gangrene COPD (chronic obstructive pulmonary disease) J44.9 COPD type: unspecified COPD Hypertension I10 Hypertension type: essential hypertension JAMES on CPAP G47.33; Z99.89 (1) Diabetes mellitus, type 2 Diabetes mellitus buttermaker insulin use: with fci use Diabetes mellitus complication status: with circulatory complication Diabetes mellitus complication detail: with peripheral angiopathy without gangrene Qualified Code(s): E11.51 - Type 2 diabetes mellitus with diabetic peripheral angiopathy without gangrene; Z79.4 - [facility] (current) use of insulin (2) COPD (chronic obstructive pulmonary disease) COPD type: unspecified COPD Qualified Code(s): J44.9 - Chronic obstructive pulmonary disease, unspecified (3) Hypertension Hypertension type: essential hypertension Qualified Code(s): I10 - Essential (primary) hypertension
[2019-11-03] MEDS ORDERED: LACTATED RINGER'S 1,000 ML IV SCH (22:00)
--- NOTE | 2019-11-03 23:37 | Electrocardiogram Report ---
Test Reason : Blood Pressure : / mmHG Vent. Rate : 097 BPM Atrial Rate : 097 BPM P-R Int : 152 ms QRS Dur : 076 ms QT Int : 330 ms P-R-T Axes : 004 197 068 degrees QTc Int : 419 ms Normal sinus rhythm Right superior axis deviation Low voltage QRS Cannot rule out Anteroseptal infarct (cited on or before 20-OCT-2019) Abnormal ECG When compared with ECG of 20-OCT-2019 09:17, No significant change was found Confirmed by Jose David Chappell ([id number]) on 11/03/2019 11:36:37 PM Referred By: REFERRED SELF Confirmed By:Jose David Chappell
[2019-11-04] MEDS: SODIUM CHLORIDE 0.9% 500 ML IV SCH (01:12)
[2019-11-04 02:58] LABS: INR 1.4 (0.9-1.1); Partial Thromboplastin Ratio 1.7; Prothrombin Time 13.6 Seconds (9.0-12.0)
[2019-11-04] MEDS ORDERED: HEPARIN IV BOLUS 3,000 UNITS in SYRINGE 0 ML IV ONE (04:10)
[2019-11-04] MEDS: CLINDAMYCIN 600 MG in DEXTROSE 5% 50 ML IV SCH ×2 (06:09→13:22)
[2019-11-04] MEDS: HYDROmorphone INJ 1 MG/ML SYRINGE IV PRN ×3 (06:29→23:34)
[2019-11-04 06:48] LABS: Basophils # (auto) 0.01 K/uL (0-0.2); Basophils % (auto) 0.1 %; Hematocrit (blood only) 43.6 % (42-52); Hemoglobin 14.6 g/dL (14.0-18.0); Immature Granulocytes # (auto) 0.02 K/uL (0.00-0.02); Immature Granulocytes % (auto) 0.2 %; Lymphocytes # (auto) 1.33 K/uL (1.2-3.4); Mean Corpuscular Hemoglobin 32.3 pg (25-34); Mean Corpuscular Hgb Conc 33.5 g/dL (32-36); Mean Corpuscular Volume 96.5 fL (80-100); Mean Platelet Volume 8.8 fL (7.4-10.4); Monocytes % (auto) 7.2 %; Neutrophils # (auto) 6.34 K/uL (1.4-6.5); Neutrophils % (auto) 76.5 %; Platelet Count 244 K/uL (130-400); RDW Coefficient of Variation 15.2 % (11.5-14.5); Red Blood Count 4.52 M/uL (4.7-6.1)
[2019-11-04 07:27] LABS: Albumin Level 3.1 gm/dl (3.4-5.0); BUN Creatinine Ratio 13.9 (10-20); Creatinine Clr Calc Pharmacy 171.7 ml/min; Est GFR (African American) 134.1; Est GFR (Non-African American) 115.7; Potassium 4.1 mmol/L (3.5-5.1)
[2019-11-04 07:30] LABS: Albumin Globulin Ratio 0.8 (0.9-2); Bilirubin,Total 0.4 mg/dl (0.2-1); Globulin 4.1 gm/dl (2.5-4.0); Total Protein 7.2 gm/dl (6.4-8.2)
[2019-11-04] MEDS: INSULIN ASPART 100 UNITS/ML 3 ML PEN SC SCH ×5 (07:59→20:36)
[2019-11-04] MEDS: FERROUS SULFATE 325 MG TAB PO SCH ×2 (08:02→16:14)
[2019-11-04] MEDS: ASPIRIN 325 MG ECTAB PO SCH (08:02)
[2019-11-04] MEDS: GABAPENTIN 800 MG TAB PO SCH ×2 (08:02→20:35)
[2019-11-04] MEDS: cilostazoL 100 MG TAB PO SCH ×2 (08:02→20:35)
[2019-11-04] MEDS ORDERED: INSULIN GLARGINE SOLOSTAR 100 UNITS/ML 3 ML PEN SC STA ×2 (08:09→08:10)
[2019-11-04] MEDS: HYDROCODONE/ACETAMOPHEN 5/325MG TAB PO PRN (08:34)
--- NOTE | 2019-11-04 10:01 | Surgery Progress Note ---
Date of Service November 04, 2019 Assessment & Plan (1) Ischemic pain of left foot: Doing well post thrombectomy. Excellent flow to left foot. Discomfort most likely from ischemic neuropathy. Will start PT and OT. Transfer to floor today. Subjective Still has mild discomfort of his left foot. Physical Exam Constitutional: WD/WN, vitals as above Cardiovascular: Vessels: posterior tibial pulses present (good doppler on left) left foot warm with good capillary refill Psychiatric: Orientation: alert and oriented x 3 Results & Data Vital Signs (Past 12 Hours) Vital Signs Temp Pulse Pulse Resp BP BP Pulse Ox 11/04/19 07:10 36.4 C L 95 H 20 113/71 93 11/04/19 03:55 37.0 C 104 H 20 129/80 97 11/04/19 00:01 99 H 11/03/19 23:11 37.4 C 101 H 23 131/77 93 11/03/19 22:13 36.6 C 103 H 18 124/75 94
[2019-11-04] MEDS: HYDROmorphone HCL 2 MG TAB PO PRN ×4 (10:08→18:08)
[2019-11-04] MEDS: HEPARIN SODIUM/DEXTROSE 25,000 UNITS/500 ML BAG IV SCH (10:09)
[2019-11-04 11:13] LABS: Partial Thromboplastin Ratio 2.3
[2019-11-04 11:22] LABS: Partial Thromboplastin Time 63.6 Seconds (21.0-31.0)
--- NOTE | 2019-11-04 14:37 | Anesthesiology Progress Note ---
Date of Service November 04, 2019 Anesthesia Post Procedure Vital Signs Vital Signs: Temp Pulse Pulse Pulse Resp BP BP 11/04/19 08:00 106 H 11/04/19 07:10 36.4 C L 95 H 20 113/71 11/04/19 03:55 37.0 C 104 H 20 129/80 11/04/19 00:01 99 H 11/03/19 23:11 37.4 C 101 H 23 131/77 11/03/19 22:13 36.6 C 103 H 18 124/75 11/03/19 21:20 36.5 C 101 H 18 106/69 11/03/19 20:18 37.6 C H 112 H 102 H 20 129/74 11/03/19 19:55 106 H 13 140/70 11/03/19 19:45 36.5 C 94 H 17 138/67 11/03/19 19:35 95 H 17 141/67 H 11/03/19 19:25 92 H 18 138/78 11/03/19 19:15 94 H 22 132/78 11/03/19 19:06 36.1 C L 102 H 20 159/79 H 11/03/19 16:36 36.9 C 97 H 20 119/71 Pulse Ox 11/04/19 08:00 11/04/19 07:10 93 11/04/19 03:55 97 11/04/19 00:01 11/03/19 23:11 93 11/03/19 22:13 94 11/03/19 21:20 93 11/03/19 20:18 94 11/03/19 19:55 92 11/03/19 19:45 92 11/03/19 19:35 93 11/03/19 19:25 95 11/03/19 19:15 96 11/03/19 19:06 96 11/03/19 16:36 95 Pain Intensity Left Foot: Pain Intensity: 4 Left Leg: Pain Intensity: 4 Notes Mental Status: alert / awake / arousable and participated in evaluation Patient Amnestic to Procedure: Yes Nausea / Vomiting: adequately controlled Pain: adequately controlled Airway Patency, RR, SpO2: stable & adequate BP & HR: stable & adequate Hydration State: stable & adequate Anesthetic Complications: no major complications apparent
[2019-11-04] MEDS ORDERED: WARFARIN SOD 5 MG TAB PO SCH (16:00)
[2019-11-04] MEDS ORDERED: VANCOMYCIN CONSULT ACTIVE PRN (19:26)
[2019-11-04] MEDS ORDERED: CEFEPIME 2,000 MG in SYRINGE 7.5 ML IV SCH (19:45)
[2019-11-04] MEDS: IMIPENEM/CILASTATIN SODIUM 1,000 MG in DEXTROSE 5% 100 ML IV SCH (20:26)
[2019-11-04] MEDS ORDERED: VANCOMYCIN HCL 1,750 MG in SODIUM CHLORIDE 0.9% 500 ML IV ONE (20:30)
--- NOTE | 2019-11-04 22:12 | Hospitalist Progress Note ---
Date of Service November 04, 2019 Assessment & Plan (1) Cellulitis: Left foot erythema swelling and warmth. Elevated WBC possibly just secondary to operation. Patient on clindamycin for prophylaxis prior to perioperatively however previous MRSA resistant to this. Initially suspected just from revascularization but appeared to progress throughout the day with streaking appearing to start from great toe on right foot and extending to ankle. Patient refusing x2 blood cultures but ok for 1 try. He is fed up with constant blood draws. Will start Vancomycin and Imipenem after attempt at blood culture. If not successful antibiotics should not be delayed. Given penicillin allergy imipenem was prescribed therefore reflexed to consulting infectious disease in addition. 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 POD #1 thrombectomy. Heparin infusion continues while warfarin restarted. Continue ASA and Cilotazol. (3) Ischemic pain of left foot: As above. (4) Diabetes mellitus, type 2: BSG well controlled at this time. Appreciate pharmacy glycemic consult BSG ACHS HbA1C 5.8 (5) COPD (chronic obstructive pulmonary disease): No acute exacerbation at this time. Continue home medicine Combivent Respimat 2 puffs inhalation 4 times daily as needed. Albuterol sulfate 2 puffs inhalation 4 times daily as needed (6) Hypertension: Continue holding lisinopril until BP improved. (7) JAMES on CPAP: Patient has his CPAP. Continue his own CPAP. (8) DVT prophylaxis: Continue on heparin drip until INR therapeutic - managed by Dr Alanis at this time. (9) Discharge planning issues: PT/OT. Pt refusing inpatient rehab. Subjective Patient seen in morning and near end of shift approx 6:50pm. Severe pain when seen in the afternoon with increased left foot erythema, warmth and swelling with tracking back to his ankle. He reports 10/10 pain, (previously controlled with dilaudid in morning around 3/10). He has not been walking on his foot today. No pain radiation. No fevers or chills. Review of Systems Review of Systems: All systems reviewed & are unremarkable except as noted in HPI & below Physical Exam Constitutional: well developed, + acute distress (in afternoon with severe 10/10 pain in left foot) and + obese Eyes: + anicteric sclerae; pupils not irregular Neck: normal visual inspection and trachea midline Respiratory: normal respiratory effort; no respiratory distress, no labored breathing, no retractions and does not use accessory muscles Auscultation: lungs clear to auscultation bilaterally Cardiovascular: Rate/Rhythm: regular rate and regular rhythm Heart Sounds: no murmur Extremities: normal capillary refill and + edema (left foot 2+) Gastrointestinal (Abdomen): Inspection/Auscultation: abdomen normal to inspection (wound vac in place) and normal bowel sounds Percussion/Palpation: abdomen soft; abdomen nontender, no guarding and abdomen not rigid Musculoskeletal: Extremities: + lower extremity abnormal to inspection (erythematous, cool to touch left foot) Left (foot cool, erythematous, exquisitely tender, medial malleolus with black eschar,) Skin: + erythema (left foot - tracking on medial side back to ankle, bright, warm to touch) and + eschar (left medial ankle, unstageable right heel) Neurologic: moves all extremities and awake; not confused Psychiatric: Orientation: alert and oriented x 3 Results & Data Vital Signs (Past 12 Hours) Vital Signs Temp Pulse Resp BP Pulse Ox 11/04/19 15:14 36.9 C 96 H 16 121/70 91 PG Care Time/CCT Total # of Minutes Spent Total Time Spent with Patient: Total time spent is greater than 50% in coordination of care (as documented) at patient's floor/unit and/or counseling patient: Coding Level of Care Code 29243 Subseq Hosp Care Lvl 3 Diagnoses Cellulitis L03.818 Site of cellulitis: other site Vascular occlusion I99.8 Ischemic pain of left foot M79.672; I99.9 Diabetes mellitus, type 2 E11.51; Z79.4 Diabetes mellitus complication detail: with peripheral angiopathy without gangrene Diabetes mellitus complication status: with circulatory complication Diabetes mellitus longterm insulin use: with auto electrician use COPD (chronic obstructive pulmonary disease) J44.9 COPD type: unspecified COPD Hypertension I10 Hypertension type: essential hypertension JAMES on CPAP G47.33; Z99.89 DVT prophylaxis Z29.9 Discharge planning issues Z02.9 (1) Diabetes mellitus, type 2 Diabetes mellitus complication detail: with peripheral angiopathy without gangrene Diabetes mellitus complication status: with circulatory complication Diabetes mellitus auto electrician insulin use: with auto electrician use Qualified Code(s): E11.51 - Type 2 diabetes mellitus with diabetic peripheral angiopathy without gangrene; 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
[2019-11-05] MEDS: IMIPENEM/CILASTATIN SODIUM 1,000 MG in DEXTROSE 5% 100 ML IV SCH (01:38)
[2019-11-05] MEDS: VANCOMYCIN HCL 1,250 MG in SODIUM CHLORIDE 0.9% 250 ML IV SCH ×3 (01:38→17:43)
[2019-11-05] MEDS: HEPARIN SODIUM/DEXTROSE 25,000 UNITS/500 ML BAG IV SCH ×2 (01:39→16:51)
[2019-11-05] MEDS ORDERED: VANCOMYCIN HCL 1,250 MG in SODIUM CHLORIDE 0.9% 500 ML IV SCH (02:00)
[2019-11-05] MEDS: HYDROmorphone INJ 1 MG/ML SYRINGE IV PRN ×6 (04:00→21:31)
[2019-11-05 05:24] LABS: Basophils # (auto) 0.02 K/uL (0-0.2); Basophils % (auto) 0.3 %; Eosinophils # (auto) 0.15 K/uL (0-0.5); Eosinophils % (auto) 2.2 %; Hematocrit (blood only) 39.9 % (42-52); Hemoglobin 12.8 g/dL (14.0-18.0); Immature Granulocytes # (auto) 0.02 K/uL (0.00-0.02); Immature Granulocytes % (auto) 0.3 %; Lymphocytes # (auto) 1.98 K/uL (1.2-3.4); Lymphocytes % (auto) 29.4 %; Mean Corpuscular Hgb Conc 32.1 g/dL (32-36); Mean Corpuscular Volume 96.6 fL (80-100); Mean Platelet Volume 8.7 fL (7.4-10.4); Monocytes # (auto) 0.62 K/uL (0.11-0.59); Monocytes % (auto) 9.2 %; Neutrophils # (auto) 3.95 K/uL (1.4-6.5); Neutrophils % (auto) 58.6 %; Platelet Count 219 K/uL (130-400); RDW Coefficient of Variation 15.3 % (11.5-14.5); RDW Standard Deviation 54.4 fL (36.4-46.3); Red Blood Count 4.13 M/uL (4.7-6.1); White Blood Count 6.74 K/uL (4.8-10.8)
[2019-11-05 05:46] LABS: INR 1.4 (0.9-1.1); Partial Thromboplastin Ratio 1.9
[2019-11-05 05:52] LABS: Albumin Level 2.8 gm/dl (3.4-5.0); BUN Creatinine Ratio 18.3 (10-20); Calcium 8.6 mg/dl (8.5-10.1); Creatinine Clr Calc Pharmacy 147.2 ml/min; Est GFR (African American) 125.9; Est GFR (Non-African American) 108.6; Potassium 3.6 mmol/L (3.5-5.1)
[2019-11-05 05:54] LABS: Albumin Globulin Ratio 0.7 (0.9-2); Bilirubin,Total 0.3 mg/dl (0.2-1); Globulin 4.1 gm/dl (2.5-4.0); Total Protein 6.9 gm/dl (6.4-8.2)
[2019-11-05] MEDS: HYDROmorphone HCL 2 MG TAB PO PRN (07:32)
[2019-11-05] MEDS: cilostazoL 100 MG TAB PO SCH ×2 (07:33→20:19)
[2019-11-05] MEDS: ASPIRIN 325 MG ECTAB PO SCH (07:33)
[2019-11-05] MEDS: FERROUS SULFATE 325 MG TAB PO SCH ×2 (07:33→17:44)
[2019-11-05] MEDS: GABAPENTIN 800 MG TAB PO SCH ×2 (07:33→20:19)
[2019-11-05] MEDS: IMIPENEM/CILASTATIN SODIUM 1,000 MG in DEXTROSE 5% 250 ML IV SCH ×3 (08:17→20:13)
[2019-11-05] MEDS: INSULIN ASPART 100 UNITS/ML 3 ML PEN SC SCH ×4 (09:02→21:27)
--- NOTE | 2019-11-05 09:57 | Surgery Progress Note ---
Date of Service November 05, 2019 Assessment & Plan (1) Ischemic pain of left foot: Doing well post thrombectomy. Excellent flow to left foot. His INR today is the 1.4. I did double his Coumadin dose today. Hopefully will start physical therapy tomorrow and can get him out of the hospital as soon as his INR is therapeutic. I would like him in the 2-1/2-3 range on his INR. Subjective Still has mild discomfort of his left foot. Physical Exam Constitutional: WD/WN, vitals as above Cardiovascular: Vessels: posterior tibial pulses present (good doppler on left) Extremities: normal capillary refill He has good warmth to his left foot. His left foot is pink. No evidence of ischemia is noted. Psychiatric: Orientation: alert and oriented x 3 Results & Data Vital Signs (Past 12 Hours) Vital Signs Temp Pulse Resp BP Pulse Ox 11/05/19 07:42 36.3 C L 82 16 131/69 91 11/05/19 05:58 36.8 C 80 17 126/67 93 11/04/19 23:20 36.8 C 82 16 133/69 91
--- NOTE | 2019-11-05 10:17 | Pharmacy Report ---
Pharmacy Glycemic Short Note 2 - Date of Service November 05, 2019 - Glycemic Short BSG Results (Last 24 hours): 11/04/19 11/04/19 11/04/19 11:49 17:52 20:36 Glucose POC Glucose 147 H 139 H 175 H 11/05/19 11/05/19 04:53 08:19 Glucose 139 H POC Glucose 140 H OUTPATIENT ANTIDIABETIC REGIMEN: * Toujeo 15 units SQ qPM * Jardiance 10 mg qAM, metformin 1000 mg BID * Trulicity 0.75 mg SQ on Saturdays * A1c = 5.8% 11/03/19 ASSESSMENT: * BSGs reasonable over the previous 24hrs. We will work back to HS hang for ease of transition at d/c PLAN FOR INPATIENT GLYCEMIC CONTROL: * Hold outpatient oral diabetes medications * Basal insulin * Lantus 15 units @1300 today then at dinner tomorrow, 11/06/2019. * Bolus insulin * NovoLog per scale ACHS or Q6hrs while NPO * Goal Range: Low 110 mg/dL - High 140 mg/dL * Correction Factor: 30 mg/dL/unit * Nutritional / Prandial insulin per carb ratio of 1 unit per 10 grams CHO consumed PLAN FOR DISCHARGE: * A1c of 5.8% indicates excellent glycemic control * Continue regimen management and titration per outpatient provider
[2019-11-05] MEDS ORDERED: WARFARIN SOD 10 MG TAB PO SCH (10:30)
--- NOTE | 2019-11-05 12:58 | Pharmacy Report ---
Pharmacy Abx Initial Consult - Date of Service November 05, 2019 - Pharmacy Dosing Scope Date of Consult: 11/04/19 Consultation requested by: Dr. Duran Pharmacy is consulted to initiate vancomycin IV dosing therapy, order appropriate labs and adjust drug dose/frequency. - Subjective The patient is a 59 year old M admitted on 11/02/19 19:24. - Objective Height: 5 ft 11 in Weight: 90.6 kg Vital Signs (Past 12hrs): Vital Signs Temp Pulse Resp BP Pulse Ox 11/05/19 07:42 36.3 C L 82 16 131/69 91 11/05/19 05:58 36.8 C 80 17 126/67 93 Lab Results (24hrs): Laboratory Tests (24 Hours) 11/05/19 11/05/19 04:53 04:53 WBC 6.74 Neut # (Auto) 3.95 Creatinine 0.63 Est Cr Clr Drug Dosing 147.2 Micro Results: 11/02/19 20:05 Anaerobic Blood Culture - Final Blood 11/04/19 20:08 Aerobic Blood Culture - Pending Blood Anaerobic Blood Culture - Pending - Risk Factors for Resistance * Hospitalization for 48 hours or more within the past 90 days * Type 2 DM and vascular disease s/p occlusion of left lower extremity graft * Antimicrobial use within the last 90 days (doxycycline and Bactrim in October 2019) - Assessment & Plan Assessment 59 year old M receiving empiric vancomycin and imipenem/cilastatin for treatment of cellulitis of the left lower extremity complicated by recent revascularization (s/p thrombectomy of left leg bypass on 11/03). On 11/04/19 it was noted that patient's left foot was erythematous, warm, and swollen. Patient has severe type-1 reaction to penicillin (hives/throat swelling) - tolerating imipenem so far. Microbiology: Blood cultures x 2 (11/02): no growth at 24 hours, Blood culture x 1 (11/04): pending (patient refused second blood draw) Plan Vancomycin IV * Estimated PK Parameters: Vd 0.61 L/kg, Raghav 0.104 hr-1, t1/2 6 hr * Loading dose: 1750 mg (20 mg/kg) * Maintenance dose: 1250 mg IV (14 mg/kg) every 8 hours * Goal trough level for cellulitis : 10 to 20 mcg/mL * Trough level ordered for 11/06/19 @0130 prior to 5th dose Imipenem/cilastatin IV * 1 g IV q6h appropriate based on indication and renal function Pharmacy will continue to follow and will adjust dose/frequency as necessary. Thank you.
[2019-11-05] MEDS ORDERED: INSULIN GLARGINE SOLOSTAR 100 UNITS/ML 3 ML PEN SC ONE (13:00)
[2019-11-05] MEDS: HYDROCODONE/ACETAMOPHEN 5/325MG TAB PO PRN (15:39)
--- NOTE | 2019-11-05 23:57 | Hospitalist Progress Note ---
Date of Service November 05, 2019 Assessment & Plan (1) Cellulitis: Left foot erythema swelling and warmth on POD #1. Given initial streaking and progression suspected to be infective rather than just toxin medicated from re-perfusion. Blood culture x1 (patient refused second) negative 24 hours. Started empirically on Vanc + Imipenem due to penicillin allergy. Given improvement today, once blood culture 48 hours negative he can likely be changed to PO antibiotics to cover MRSA given history (previously sensitive to both doxycyline and Bactrim, resistant to clindamycin). Reflex consultation to infectious disease due to imipenem use - pt also had multiple infections in the past. (2) Vascular occlusion: Left lower extremity graft thrombosis causing occlusion. Appreciate vascular surgery management. POD #2 thrombectomy. Heparin infusion continues while warfarin restarted - Dr Alanis managing. (3) Ischemic pain of left foot: As above. Dilaudid 1mg IV for severe pain, hydromorphone 2mg PO for mode rate pain, [place] for mild pain. Likely can be discharged on his usual [place]. (4) Peripheral arterial disease: Severe with multiple vascular surgeries Continue ASA and Cilotazol (5) Diabetes mellitus, type 2: BSG well controlled at this time. Appreciate pharmacy gylcemic consult Lantus 15 units HS with Novolog SS BSG ACHS HbA1C 5.8 (6) COPD (chronic obstructive pulmonary disease): No acute exacerbation Continue home medicine Combivent Respimat 2 puffs inhalation 4 times daily as needed. Albuterol sulfate 2 puffs inhalation 4 times daily as needed (7) Hypertension: Continue holding lisinopril until BP improved. (8) JAMES on CPAP: Patient has his CPAP. Continue his own CPAP. 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 Improves the more he walks. Continue PT. Previously evaluated by orthopedics on last admission and pain due to PAD, no orthopedic surgery recommended. (10) DVT prophylaxis: Continue on heparin IV drip until INR therapeutic - Dr Alanis managing. (11) Discharge planning issues: Continue PT/OT. Patient does not wish to go to inpatient physical rehab. Subjective Patient reports improvement in pain. Has a good correlation with increasing pain when he doesn't walk around, especially with his right heel pain. Spent considerable time explaining what causes his ongoing thrombosis in his grafts and what factors are modifiable. The largest of which is his continued smoking. Encouraged to mobilize as much as possible to help form collaterals and decrease stasis of blood in his grafts. Otherwise making sure his warfarin is within therapeutic range. Cellulitis - he denies any fevers or chills, foot pain and erythema much improved from yesterday after starting Vanc + Imipenem Discussed stopping smoking as largest modifiable risk factor for continued thrombosis. He has cut down from 3 packs/day to 0.25 packs/day. Taking chantix prior to this admission but declines restarting this at present. No side effects on this. Review of Systems Review of Systems: All systems reviewed & are unremarkable except as noted in HPI & below Physical Exam Constitutional: well developed and + obese; no acute distress ENMT: external ear and nose normal, oropharynx normal Neck: normal visual inspection and trachea midline Respiratory: normal respiratory effort; no respiratory distress, no labored breathing, no retractions and does not use accessory muscles Auscultation: lungs clear to auscultation bilaterally Cardiovascular: Rate/Rhythm: regular rate and regular rhythm Heart Sounds: no murmur Extremities: normal capillary refill and + edema (left foot, improving) Gastrointestinal (Abdomen): Inspection/Auscultation: abdomen normal to inspection (wound vac in place) and normal bowel sounds Percussion/Palpation: abdomen soft; abdomen nontender, no guarding and abdomen not rigid Musculoskeletal: Extremities: + lower extremity abnormal to inspection (erythematous, cool to touch left foot) Left (foot cool, erythematous, exquisitely tender, medial malleolus with black eschar,) Skin: + erythema (improving on right foot, bright, warm to touch) and + eschar (left medial ankle, unstageable right heel) Neurologic: moves all extremities and awake; not confused Psychiatric: Orientation: alert and oriented x 3 Results & Data Vital Signs (Past 12 Hours) Vital Signs Temp Pulse Resp BP Pulse Ox 11/05/19 15:16 36.7 C 83 16 136/76 94 PG Care Time/CCT Total # of Minutes Spent Total Time Spent with Patient: Total time spent is greater than 50% in coordination of care (as documented) at patient's floor/unit and/or counseling patient: Coding Level of Care Code 76690 Subseq Hosp Care Lvl 3 Diagnoses Cellulitis L03.818 Site of cellulitis: other site Vascular occlusion I99.8 Ischemic pain of left foot M79.672; I99.9 Peripheral arterial disease I73.9 Diabetes mellitus, type 2 E11.51; Z79.4 Diabetes mellitus complication detail: with peripheral angiopathy without gangrene Diabetes mellitus complication status: with circulatory complication Diabetes mellitus mcfp insulin use: with middle or intermediate school principal use COPD (chronic obstructive pulmonary disease) J44.9 COPD type: unspecified COPD Hypertension I10 Hypertension type: essential hypertension JAMES on CPAP G47.33; Z99.89 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 L97.414 Laterality: right DVT prophylaxis Z29.9 Discharge planning issues Z02.9 (1) Diabetes mellitus, type 2 Diabetes mellitus complication detail: with peripheral angiopathy without gangrene Diabetes mellitus complication status: with circulatory complication Diabetes mellitus middle or intermediate school principal insulin use: with middle or intermediate school principal use Qualified Code(s): E11.51 - Type 2 diabetes mellitus with diabetic peripheral angiopathy without gangrene; Z79.4 - supervisor intermediates (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 (5) 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
[2019-11-06] MEDS ORDERED: VANCOMYCIN TROUGH ONE (01:30)
[2019-11-06] MEDS: HYDROmorphone INJ 1 MG/ML SYRINGE IV PRN ×5 (01:35→20:10)
[2019-11-06] MEDS: IMIPENEM/CILASTATIN SODIUM 1,000 MG in DEXTROSE 5% 250 ML IV SCH ×2 (01:38→08:06)
[2019-11-06 02:14] LABS: Creatinine Clr Calc Pharmacy 142.7 ml/min; Est GFR (African American) 124.3; Est GFR (Non-African American) 107.2; Partial Thromboplastin Ratio 1.8
[2019-11-06 02:25] LABS: Partial Thromboplastin Time 48.3 Seconds (21.0-31.0)
[2019-11-06] MEDS: VANCOMYCIN HCL 1,250 MG in SODIUM CHLORIDE 0.9% 250 ML IV SCH ×2 (02:55→09:21)
[2019-11-06 05:36] LABS: Basophils # (auto) 0.04 K/uL (0-0.2); Basophils % (auto) 0.6 %; Eosinophils # (auto) 0.37 K/uL (0-0.5); Eosinophils % (auto) 5.9 %; Hematocrit (blood only) 39.7 % (42-52); Hemoglobin 12.8 g/dL (14.0-18.0); INR 1.4 (0.9-1.1); Lymphocytes # (auto) 2.17 K/uL (1.2-3.4); Lymphocytes % (auto) 34.6 %; Mean Corpuscular Hgb Conc 32.2 g/dL (32-36); Mean Corpuscular Volume 96.1 fL (80-100); Mean Platelet Volume 8.8 fL (7.4-10.4); Monocytes # (auto) 0.56 K/uL (0.11-0.59); Monocytes % (auto) 8.9 %; Neutrophils # (auto) 3.13 K/uL (1.4-6.5); Platelet Count 246 K/uL (130-400); Prothrombin Time 13.8 Seconds (9.0-12.0); RDW Coefficient of Variation 14.9 % (11.5-14.5); Red Blood Count 4.13 M/uL (4.7-6.1); White Blood Count 6.27 K/uL (4.8-10.8)
[2019-11-06 06:06] LABS: BUN Creatinine Ratio 15.2 (10-20); Calcium 8.6 mg/dl (8.5-10.1); Creatinine Clr Calc Pharmacy 171.7 ml/min; Est GFR (African American) 134.1; Est GFR (Non-African American) 115.7; Potassium 3.7 mmol/L (3.5-5.1)
[2019-11-06] MEDS: HEPARIN SODIUM/DEXTROSE 25,000 UNITS/500 ML BAG IV SCH ×2 (07:57→21:30)
[2019-11-06] MEDS: FERROUS SULFATE 325 MG TAB PO SCH ×2 (08:00→18:08)
[2019-11-06] MEDS: GABAPENTIN 800 MG TAB PO SCH ×2 (08:01→21:32)
[2019-11-06] MEDS: cilostazoL 100 MG TAB PO SCH ×2 (08:01→21:32)
[2019-11-06] MEDS: ASPIRIN 325 MG ECTAB PO SCH (08:01)
[2019-11-06] MEDS: INSULIN ASPART 100 UNITS/ML 3 ML PEN SC SCH ×4 (09:17→21:30)
--- NOTE | 2019-11-06 10:23 | Surgery Progress Note ---
Date of Service November 06, 2019 Assessment & Plan (1) Ischemic pain of left foot: Doing well post thrombectomy. Excellent flow to left foot. His INR today is 1.4. Can get him out of the hospital as soon as his INR is therapeutic. I would like him in the 2-1/2-3 range on his INR. Present on Admission?: Yes Subjective 59 yo m POD #3 after LLE thrombectomy and stenting, seen in f/u today. Pt sta analisa L toes occasionally painful, somewhat improved if walking. Denies any new concerns or complaints. INR 1.4 today. Review of Systems Review of Systems: All systems reviewed & are unremarkable except as noted in HPI & below Physical Exam Constitutional: WD/WN, vitals as above cooperative; not in distress Cardiovascular: RRR, no murmur, no edema Vessels: femoral pulses present (RLE), posterior tibial pulses present, dorsalis pedis pulses present and radial pulses present; + abnormal peripheral pulses Extremities: normal capillary refill (BLE 3 sec); no edema Musculoskeletal: Extremities: + abnormal strength and + lower extremity abnormal to inspection Left (Warm, pink. mild erythema to toes. medial malleolus shallow open area with scab noted) Skin: normal turgor and + eschar (R heel tender) Neurologic: moves all extremities Psychiatric: A+Ox3, euthymic affect Results & Data Vital Signs (Past 12 Hours) Vital Signs Temp Pulse Resp BP Pulse Ox 11/06/19 07:36 36.6 C 77 16 115/60 93 11/05/19 23:20 36.6 C 78 18 109/71 93
--- NOTE | 2019-11-06 10:52 | Infectious Disease Consult ---
Date of Consultation November 06, 2019 Assessment & Plan (1) Ischemic pain of left foot: no evidence of infection, likely related to vascular issues/occlusion, now stented. will stop abx. (2) Vascular occlusion: History of Present Illness Attending Physician: Sam Duran MD pt admitted with left foot pain, was found to have occlusion, was taken to OR and had bypass with stent. much improved. placed on abx for concern of cellulitis. ID eval requested. wbc 6, creat 0.6. blood cultures negative. no pain in foot, has scab that was removed, min bleeding, no erythema, no warmth, examined with wound care nurse. no abd pain, no n/v/d. no cp, sob, cough. requesting that abx be stopped. Allergies Allergy/AdvReac Type Severity Reaction Status Date / Time Penicillins Allergy Severe THROAT Verified 11/02/19 17:38 SWELLS AND HIVES Home Medications Home Medications Medication Instructions Recorded Confirmed Type Combivent Respimat 2 puff INHALATION QID PRN 05/01/19 11/02/19 History Jardiance 10 mg PO QAM 05/01/19 11/02/19 History Toujeo SoloStar U-300 Insulin 15 unit SUBCUT QPM 05/01/19 11/02/19 History Trulicity 0.75 mg SUBCUT SA 05/01/19 11/02/19 History albuterol sulfate [Ventolin HFA] 2 puff INHALATION QID PRN 05/01/19 11/02/19 History aspirin [Cinthia Aspirin] 325 mg PO QAM 05/01/19 11/02/19 History cilostazol 100 mg PO BID 05/01/19 11/02/19 History gabapentin [Neurontin] 800 mg PO BID 05/01/19 11/02/19 History metformin 1,000 mg PO BID 05/01/19 11/02/19 History ferrous sulfate 325 mg PO BIDM #60 tab 08/01/19 11/02/19 Rx warfarin [Coumadin] 5 mg PO QDD 10/19/19 11/02/19 History lisinopril 20 mg PO QAM #0 tab 10/26/19 11/02/19 Rx hydrocodone-acetaminophen [[place]] 2 tab PO Q6H PRN 11/02/19 11/02/19 History Patient History Medical History Arthritis Chronic back pain Chronic obstructive pulmonary disease Diabetes mellitus, type 2 Diabetic neuropathy, type II diabetes mellitus Diverticulitis (Resolved) History of transfusion Hypertension Neuropathy PVD (peripheral vascular disease) Sleep apnea CPAP HS SOB (shortness of breath) on exertion 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 Feeder Required: No Beliefs That Will Affect Care: None marital status: Current Living Situation: Spouse Current Living Situation Comment: only Feels Safe at Home: Yes Smoking Status: Unknown if ever smoked Hx Alcohol Use: No Hx Substance Use: No Review of Systems Review of Systems: All systems reviewed & are unremarkable except as noted in HPI & below Physical Exam Constitutional: WD/WN, vitals as above Eyes: PERRL, conjunctivae normal, anicteric sclerae ENMT: external ear and nose normal, oropharynx normal Neck: normal visual inspection Respiratory: normal respiratory effort, lungs clear to auscultation Cardiovascular: RRR, no murmur, no edema Gastrointestinal (Abdomen): normal bowel sounds, soft, nontender, no hepatosplenomegaly Musculoskeletal: no cyanosis or clubbing, extremities motor strength 5/5 Skin: no rashes, warm and dry Psychiatric: A+Ox3, euthymic affect Results & Data Vital Signs (Past 12 Hours) Vital Signs Temp Pulse Resp BP Pulse Ox 11/06/19 07:36 36.6 C 77 16 115/60 93 11/05/19 23:20 36.6 C 78 18 109/71 93 Laboratory Results Microbiology 11/04/19 20:08 Blood Aerobic Blood Culture - Preliminary No growth in Aerobic bottle after 24 hours. 11/04/19 20:08 Blood Anaerobic Blood Culture - Preliminary No growth in Anaerobic bottle after 24 hours. 11/02/19 20:10 Blood Aerobic Blood Culture - Preliminary No growth in Aerobic bottle after 48 hours. 11/02/19 20:10 Blood Anaerobic Blood Culture - Preliminary No growth in Anaerobic bottle after 48 hours. 11/02/19 20:05 Blood Aerobic Blood Culture - Preliminary No growth in Aerobic bottle after 48 hours. 11/02/19 20:05 Blood Anaerobic Blood Culture - Final PG Care Time/CCT Total # of Minutes Spent Total Time Spent with Patient: Total time spent is greater than 50% in coordination of care (as documented) at patient's floor/unit and/or counseling patient: Coding Level of Care Code 62640 Inpt Consult Level 4 Diagnoses Ischemic pain of left foot M79.672; I99.9 Vascular occlusion I99.8
--- NOTE | 2019-11-06 14:59 | Hospitalist Progress Note ---
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 Alanis vascular surgery with L foot pain found to have graft thrombosis. Cellulitis-resolved -Blood culture x1 (patient refused second) NGTD. Started empirically on Vanc + Imipenem due to penicillin allergy. Initial plan to switch to PO antibiotics to cover MRSA given history (previously sensitive to both doxycyline and Bactrim, resistant to clindamycin). Reflex consultation to infectious disease due to imipenem use - pt also had multiple infections in the past. -ID Consult: no evidence of infection, likely related to vascular issues/occlusion. Stop abx Vascular occlusion -CTA reviewed -Left lower extremity graft thrombosis causing occlusion -Appreciate vascular surgery management. POD #3 thrombectomy. Heparin infusion continues while warfarin restarted - Dr Alanis managing -Warfarin increased to 7.5 mg daily. INR 1.4 today -PT/INR Daily Ischemic pain of left foot -Dilaudid 1mg IV for severe pain, hydromorphone 2mg PO for moderate pain, Fontana for mild pain. Likely can be discharged on his usual [place]. Peripheral arterial disease -Severe with multiple vascular surgeries -Continue ASA and Cilotazol Diabetes mellitus, type 2 -BSG well controlled at this time Appreciate pharmacy glycemic consult Lantus 15 units HS with Novolog SS BSG ACHS HbA1C 5.8 COPD -No acute exacerbation Continue home medicine Combivent Respimat 2 puffs inhalation 4 times daily as needed. Albuterol sulfate 2 puffs inhalation 4 times daily as needed HTN -Continue holding lisinopril until BP improved. JAMES on CPAP -Patient has his CPAP. -Continue his own CPAP. 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 Improves the more he walks. Continue PT. Previously evaluated by orthopedics on last admission and pain due to PAD, no orthopedic surgery recommended. FEN/GI: HH/DM2 Diet DVT prophylaxis: Continue on heparin IV drip until INR therapeutic - Dr Alanis managing. Full Code Dispo: Med Surg. Continue PT/OT. Patient does not wish to go to inpatient physical rehab. Supervising Physician Co-Signing Physician Notes I saw the patient with Dr. Vera and confirmed perez portions of the history and exam. I agree with the impression and plan as noted above. Coumadin 7.5mg tonight. INR in AM. Antibiotics discontinued per ID. If remains subtherapeutic, james discuss if Lovenox bridge would be appropriate for this patient to facilitate discharge Subjective 59 yo M found in bed this AM in NAD. No overnight events. Reports that he wants to go home. Tired of constant needle sticks. INR 1.4. Discussed case with sx, would want INR at least 1.8 before d/c. Tolerating walking. Tolerating PO intake. Pain manageable. No other acute concerns or complaints. Review of Systems Review of Systems: All systems reviewed & are unremarkable except as noted in HPI & below Physical Exam Constitutional: WD/WN, vitals as above + obese Eyes: PERRL, conjunctivae normal, anicteric sclerae ENMT: external ear and nose normal, oropharynx normal Respiratory: normal respiratory effort, lungs clear to auscultation Cardiovascular: RRR, no murmur, no edema Gastrointestinal (Abdomen): normal bowel sounds, soft, nontender, no hepatosplenomegaly Skin: no rashes, warm and dry mild erythema to toes MM with eschar Psychiatric: A+Ox3, euthymic affect Mood: + irritable mood Results & Data Vital Signs (Past 12 Hours) Vital Signs Temp Pulse Resp BP Pulse Ox 11/06/19 07:36 36.6 C 77 16 115/60 93 Laboratory Results Laboratory Results - last 24 hr 11/05/19 11/05/19 11/06/19 17:04 21:06 01:24 WBC RBC Hgb Hct MCV MCH MCHC RDW Std Deviation RDW Coeff of Maira Plt Count MPV Immature Gran % (Auto) Neut % (Auto) Lymph % (Auto) [place] % (Auto) Eos % (Auto) Baso % (Auto) Immature Gran # (Auto) Neut # (Auto) Lymph # (Auto) [place] # (Auto) Eos # (Auto) Baso # (Auto) PT INR APTT PTT Ratio Sodium Potassium Chloride Carbon Dioxide Anion Gap BUN Creatinine Est Cr Clr Drug Dosing Est GFR ( Amer) Est GFR (Non-Af Amer) BUN/Creatinine Ratio Glucose POC Glucose 193 H 174 H Calcium Vancomycin Trough 13.2 11/06/19 11/06/19 11/06/19 01:24 01:24 05:09 WBC 6.27 RBC 4.13 L Hgb 12.8 L Hct 39.7 L MCV 96.1 MCH 31.0 MCHC 32.2 RDW Std Deviation 53.0 H RDW Coeff of Maira 14.9 H Plt Count 246 MPV 8.8 Immature Gran % (Auto) 0.0 Neut % (Auto) 50.0 Lymph % (Auto) 34.6 [place] % (Auto) 8.9 Eos % (Auto) 5.9 Baso % (Auto) 0.6 Immature Gran # (Auto) 0.00 Neut # (Auto) 3.13 Lymph # (Auto) 2.17 [place] # (Auto) 0.56 Eos # (Auto) 0.37 Baso # (Auto) 0.04 PT INR APTT 48.3 H* PTT Ratio 1.8 Sodium Potassium Chloride Carbon Dioxide Anion Gap BUN Creatinine 0.65 Est Cr Clr Drug Dosing 142.7 Est GFR ( Amer) 124.3 Est GFR (Non-Af Amer) 107.2 BUN/Creatinine Ratio Glucose POC Glucose Calcium Vancomycin Trough 11/06/19 11/06/19 11/06/19 05:09 05:09 08:13 WBC RBC Hgb Hct MCV MCH MCHC RDW Std Deviation RDW Coeff of Maira Plt Count MPV Immature Gran % (Auto) Neut % (Auto) Lymph % (Auto) [place] % (Auto) Eos % (Auto) Baso % (Auto) Immature Gran # (Auto) Neut # (Auto) Lymph # (Auto) [place] # (Auto) Eos # (Auto) Baso # (Auto) PT 13.8 H INR 1.4 H APTT PTT Ratio Sodium 140 Potassium 3.7 Chloride 109 H Carbon Dioxide 27 Anion Gap 4.0 BUN 8 Creatinine 0.54 L Est Cr Clr Drug Dosing 171.7 Est GFR ( Amer) 134.1 Est GFR (Non-Af Amer) 115.7 BUN/Creatinine Ratio 15.2 Glucose 146 H POC Glucose 151 H Calcium 8.6 Vancomycin Trough 11/06/19 11:51 WBC RBC Hgb Hct MCV MCH MCHC RDW Std Deviation RDW Coeff of Maira Plt Count MPV Immature Gran % (Auto) Neut % (Auto) Lymph % (Auto) [place] % (Auto) Eos % (Auto) Baso % (Auto) Immature Gran # (Auto) Neut # (Auto) Lymph # (Auto) [place] # (Auto) Eos # (Auto) Baso # (Auto) PT INR APTT PTT Ratio Sodium Potassium Chloride Carbon Dioxide Anion Gap BUN Creatinine Est Cr Clr Drug Dosing Est GFR ( Amer) Est GFR (Non-Af Amer) BUN/Creatinine Ratio Glucose POC Glucose 175 H Calcium Vancomycin Trough Medications Administered Current Inpatient Medications Acetaminophen (Tylenol) 650 mg PO Q4H PRN PRN Reason: Pain or Fever Stop: 12/02/19 20:47 Hydrocodone Bitart/Acetaminophen ([place] 5/325) 2 tab PO Q6H PRN PRN Reason: Pain Stop: 11/16/19 20:47 Last Admin: 11/05/19 15:39 Dose: 2 tab Documented by: Al Hydrox/Mg Hydrox/Simethicone (Maalox) 15 ml PO Q4H PRN PRN Reason: Dyspepsia Stop: 12/02/19 20:47 Albuterol (Ventolin Hfa) 2 puffs INH QID PRN PRN Reason: Shortness Of Breath Stop: 12/02/19 20:47 Last Admin: 11/05/19 16:24 Dose: 2 puffs Documented by: Albuterol (Combivent Respimat) 2 puffs INH QID PRN PRN Reason: Shortness Of Breath Or Wheezing Stop: 12/02/19 20:47 Aspirin (Ecotrin) 325 mg PO QAM [facility] Stop: 12/03/19 08:59 Last Admin: 11/06/19 08:01 Dose: 325 mg Documented by: Cilostazol (Pletal) 100 mg PO BID [facility] Stop: 12/02/19 20:59 Last Admin: 11/06/19 08:01 Dose: 100 mg Documented by: Dextrose (Dextrose 50%) 25 - 50 ml IV UD PRN; Protocol PRN Reason: Hypoglycemia Protocol Stop: 12/02/19 20:47 Ferrous Sulfate (Feosol) 325 mg PO BIDM [facility] Stop: 12/03/19 07:59 Last Admin: 11/06/19 08:00 Dose: 325 mg Documented by: Gabapentin (Neurontin) 800 mg PO BID [facility] Stop: 12/02/19 20:59 Last Admin: 11/06/19 08:01 Dose: 800 mg Documented by: Glucagon (Glucagen) 1 mg SQ UD PRN; Protocol PRN Reason: Hypoglycemia Protocol Stop: 12/02/19 20:47 Glucose (Dex4 Glucose) 4 - 8 tabs PO UD PRN; Protocol PRN Reason: Hypoglycemia Protocol Stop: 12/02/19 20:47 Glucose (Glucose 40%) 15 - 30 gm PO UD PRN; Protocol PRN Reason: Hypoglycemia Protocol Stop: 12/02/19 20:47 Hydromorphone HCl (Dilaudid) 1 mg IV Q4H PRN PRN Reason: Severe Pain Stop: 11/17/19 08:25 Last Admin: 11/06/19 09:35 Dose: 1 mg Documented by: Hydromorphone HCl (Dilaudid) 2 mg PO Q2H PRN PRN Reason: Pain Stop: 11/18/19 09:02 Last Admin: 11/05/19 07:32 Dose: 2 mg Documented by: Heparin Sodium/Dextrose (Heparin Sodium/Dextrose) 25,000 units in 500 mls @ 33 mls/hr IV .[id number] [facility]; Protocol Stop: 12/02/19 18:14 Last Admin: 11/06/19 07:57 Dose: 1,650 units/hr, 33 mls/hr Documented by: Insulin Aspart (Novolog Flexpen) 0 units SC [facility] Stop: 12/02/19 21:29 Last Admin: 11/06/19 13:14 Dose: 8 units Documented by: Insulin Glargine (Lantus Solostar Pen) 15 units SC [facility] Stop: 12/06/19 16:59 Magnesium Hydroxide (Milk Of Magnesia) 30 ml PO Q12H PRN PRN Reason: Constipation Stop: 12/02/19 20:47 Miscellaneous (Carbohydrates For Hypoglycemia) 15 - 30 gm PO UD PRN PRN Reason: Hypoglycemia Protocol Stop: 12/02/19 20:47 Miscellaneous Information (Consult Glycemic Management Pharmacy) 1 ea N/A UD P RN; Protocol PRN Reason: Consult Stop: 12/02/19 20:51 Ondansetron HCl (Zofran) 4 mg IV Q6H PRN PRN Reason: Nausea Stop: 12/02/19 20:47 Polyethylene Glycol (Miralax Powder Packet) 17 gm PO DAILY PRN PRN Reason: Constipation Stop: 12/02/19 20:47 Warfarin Sodium (Coumadin) 5 mg PO DAILY@1600 [facility] Stop: 12/06/19 15:59 Resident Activity Tracking Resident Involvement: Resident Care Provided Care Provided: Adult Hospital Medicine (1) 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
[2019-11-06] MEDS ORDERED: WARFARIN SOD 7.5 MG TAB PO SCH (16:00)
[2019-11-06] MEDS ORDERED: WARFARIN SOD 5 MG TAB PO SCH (16:00)
[2019-11-06] MEDS ORDERED: INSULIN GLARGINE SOLOSTAR 100 UNITS/ML 3 ML PEN SC SCH (17:00)
[2019-11-06] MEDS: HYDROmorphone HCL 2 MG TAB PO PRN (18:13)
[2019-11-07] MEDS: HYDROmorphone HCL 2 MG TAB PO PRN ×6 (00:36→21:44)
[2019-11-07 07:22] LABS: Basophils # (auto) 0.05 K/uL (0-0.2); Basophils % (auto) 0.7 %; Eosinophils # (auto) 0.28 K/uL (0-0.5); Eosinophils % (auto) 4.2 %; Hematocrit (blood only) 42.4 % (42-52); Hemoglobin 13.9 g/dL (14.0-18.0); Immature Granulocytes # (auto) 0.02 K/uL (0.00-0.02); Immature Granulocytes % (auto) 0.3 %; Lymphocytes # (auto) 2.03 K/uL (1.2-3.4); Lymphocytes % (auto) 30.3 %; Mean Corpuscular Hemoglobin 31.4 pg (25-34); Mean Corpuscular Hgb Conc 32.8 g/dL (32-36); Mean Corpuscular Volume 95.7 fL (80-100); Mean Platelet Volume 8.6 fL (7.4-10.4); Monocytes # (auto) 0.61 K/uL (0.11-0.59); Monocytes % (auto) 9.1 %; Neutrophils # (auto) 3.72 K/uL (1.4-6.5); Neutrophils % (auto) 55.4 %; Platelet Count 246 K/uL (130-400); RDW Coefficient of Variation 14.8 % (11.5-14.5); RDW Standard Deviation 51.8 fL (36.4-46.3); Red Blood Count 4.43 M/uL (4.7-6.1); White Blood Count 6.71 K/uL (4.8-10.8)
[2019-11-07 07:35] LABS: INR 1.2 (0.9-1.1); Prothrombin Time 12.2 Seconds (9.0-12.0)
[2019-11-07 07:55] LABS: BUN Creatinine Ratio 17.2 (10-20); Calcium 9.4 mg/dl (8.5-10.1); Creatinine Clr Calc Pharmacy 157.2 ml/min; Est GFR (African American) 129.3; Est GFR (Non-African American) 111.6; Potassium 3.7 mmol/L (3.5-5.1)
[2019-11-07] MEDS ORDERED: HYDROmorphone INJ 1 MG/ML SYRINGE IV PRN (08:37)
[2019-11-07] MEDS: INSULIN ASPART 100 UNITS/ML 3 ML PEN SC SCH ×5 (08:48→20:42)
[2019-11-07] MEDS: GABAPENTIN 800 MG TAB PO SCH ×2 (08:50→20:40)
[2019-11-07] MEDS: ASPIRIN 325 MG ECTAB PO SCH (08:50)
[2019-11-07] MEDS: cilostazoL 100 MG TAB PO SCH ×2 (08:50→20:40)
[2019-11-07] MEDS: FERROUS SULFATE 325 MG TAB PO SCH ×2 (08:51→18:18)
[2019-11-07 09:00] LABS: Partial Thromboplastin Ratio 1.6; Partial Thromboplastin Time 44.2 Seconds (21.0-31.0)
[2019-11-07] MEDS ORDERED: HEPARIN IV BOLUS 3,000 UNITS in SYRINGE 0 ML IV ONE (09:45)
--- NOTE | 2019-11-07 10:21 | Surgery Progress Note ---
Date of Service November 07, 2019 Assessment & Plan (1) Ischemic pain of left foot: Doing well post thrombectomy. Discussed need for pt to remain in hospital with heparin drip until his INR is therapeutic, he is agreeable to stay. His INR today is 1.2. Can discharge from hospital as soon as his INR is therapeutic. Preferred INR range of 2.5-3.5 d/t previous thrombosis of graft with therapeutic INR. Subjective 59 yo m s/p thrombectomy of LLE, seen in f/u today. Pt expresses frustration with remaining in hospital, he wants to go home. Denies any other significant complaints. INR 1.2 today. Review of Systems Review of Systems: All systems reviewed & are unremarkable except as noted in HPI & below Physical Exam Constitutional: WD/WN, vitals as above Cardiovascular: Vessels: femoral pulses present (RLE), posterior tibial pulses present, dorsalis pedis pulses present and radial pulses present; + abnormal peripheral pulses Extremities: normal capillary refill (BLE 3 sec); no edema Gastrointestinal (Abdomen): normal bowel sounds, soft, nontender, no hepatosplenomegaly Inspection/Auscultation: + abdominal surgical incision (L abd wound vac in place. Other surgical wounds healed.) Musculoskeletal: Extremities: + abnormal strength and + lower extremity ab normal to inspection Left (Warm, pink. mild erythema to toes. medial malleolus shallow open area with scab noted) Skin: + eschar (R heel tender) Neurologic: moves all extremities Psychiatric: Orientation: alert and oriented x 3 Affect: + depressed affect, + irritable affect and + angry affect Mood: + irritable mood Results & Data Vital Signs (Past 12 Hours) Vital Signs Temp Pulse Resp BP BP Pulse Ox 11/07/19 07:51 36.5 C 83 16 147/88 H 92 11/06/19 23:10 36.5 C 73 16 166/83 H 95
--- NOTE | 2019-11-07 12:04 | Hospitalist Progress Note ---
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 Alanis vascular surgery with L foot pain found to have graft thrombosis. Cellulitis-resolved -Blood culture x1 (patient refused second) NGTD. Started empirically on Vanc + Imipenem due to penicillin allergy. Initial plan to switch to PO antibiotics to cover MRSA given history (previously sensitive to both doxycyline and Bactrim, resistant to clindamycin). Reflex consultation to infectious disease due to imipenem use - pt also had multiple infections in the past. -ID Consult: no evidence of infection, likely related to vascular issues/occlusion. Stopped abx 11/06 Vascular occlusion -CTA reviewed -Left lower extremity graft thrombosis causing occlusion -Appreciate vascular surgery management. POD #4 thrombectomy. Heparin infusion continues while warfarin restarted - Dr Alanis managing -Warfarin increased to 10 mg daily. INR 1.2 today -PT/INR Daily Ischemic pain of left foot -Dilaudid 1mg IV for severe pain, hydromorphone 2mg PO for moderate pain, Alexander for mild pain. Likely can be discharged on his usual Alexander. Peripheral arterial disease -Severe with multiple vascular surgeries -Continue ASA and Cilotazol Diabetes mellitus, type 2 -BSG well controlled at this time Appreciate pharmacy glycemic consult Lantus 15 units HS with Novolog SS BSG ACHS HbA1C 5.8 COPD -No acute exacerbation Continue home medicine Combivent Respimat 2 puffs inhalation 4 times daily as needed. Albuterol sulfate 2 puffs inhalation 4 times daily as needed HTN -Continue holding lisinopril until BP improved. JAMES on CPAP -Patient has his CPAP. -Continue his own CPAP. 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 Improves the more he walks. Continue PT. Previously evaluated by orthopedics on last admission and pain due to PAD, no orthopedic surgery recommended. FEN/GI: HH/DM2 Diet DVT prophylaxis: Continue on heparin IV drip until INR therapeutic - Dr Alanis managing. Full Code Dispo: Med Surg. Continue PT/OT. Patient does not wish to go to inpatient physical rehab. Supervising Physician Co-Signing Physician Notes I saw the patient with Dr. Vera and confirmed perez portions of the history and exam. I also discussed the case with the vascular surgery team. The patient was discouraged that he had to stay in the hospital; tried to iterate the importance of continued anticoagulation until he is therapeutic on his warfarin. Discussed with vascular team the option of a Lovenox bridge; not an option in this particular case. Coumadin 10mg tonight. INR in AM. He remained hospitalized until therapeutic with his INR Subjective 59 yo M found in bed this AM with angry affect. Pt expresses frustration with remaining in hospital, he wants to go home. Denies any other significant comp laints. INR 1.2 today. Review of Systems Review of Systems: All systems reviewed & are unremarkable except as noted in HPI & below Physical Exam Constitutional: WD/WN, vitals as above + obese Eyes: PERRL, conjunctivae normal, anicteric sclerae ENMT: external ear and nose normal, oropharynx normal Respiratory: normal respiratory effort, lungs clear to auscultation Cardiovascular: RRR, no murmur, no edema Gastrointestinal (Abdomen): normal bowel sounds, soft, nontender, no hepatosplenomegaly Skin: no rashes, warm and dry Psychiatric: A+Ox3, euthymic affect Mood: + irritable mood Results & Data Vital Signs (Past 12 Hours) Vital Signs Temp Pulse Resp BP Pulse Ox 11/07/19 07:51 36.5 C 83 16 147/88 H 92 Laboratory Results Laboratory Results - last 24 hr 11/06/19 11/06/19 11/06/19 11:51 17:09 21:07 WBC RBC Hgb Hct MCV MCH MCHC RDW Std Deviation RDW Coeff of Maira Plt Count MPV Immature Gran % (Auto) Neut % (Auto) Lymph % (Auto) [place] % (Auto) Eos % (Auto) Baso % (Auto) Immature Gran # (Auto) Neut # (Auto) Lymph # (Auto) [place] # (Auto) Eos # (Auto) Baso # (Auto) PT INR APTT PTT Ratio Sodium Potassium Chloride Carbon Dioxide Anion Gap BUN Creatinine Est Cr Clr Drug Dosing Est GFR ( Amer) Est GFR (Non-Af Amer) BUN/Creatinine Ratio Glucose POC Glucose 175 H 173 H 189 H Calcium 01/28/20 01/28/20 01/28/20 07:07 07:07 07:07 WBC 6.71 RBC 4.43 L Hgb 13.9 L Hct 42.4 MCV 95.7 MCH 31.4 MCHC 32.8 RDW Std Deviation 51.8 H RDW Coeff of Maira 14.8 H Plt Count 246 MPV 8.6 Immature Gran % (Auto) 0.3 Neut % (Auto) 55.4 Lymph % (Auto) 30.3 [place] % (Auto) 9.1 Eos % (Auto) 4.2 Baso % (Auto) 0.7 Immature Gran # (Auto) 0.02 Neut # (Auto) 3.72 Lymph # (Auto) 2.03 [place] # (Auto) 0.61 H Eos # (Auto) 0.28 Baso # (Auto) 0.05 PT 12.2 H INR 1.2 H APTT PTT Ratio Sodium 140 Potassium 3.7 Chloride 108 H Carbon Dioxide 27 Anion Gap 5.0 BUN 10 Creatinine 0.59 L Est Cr Clr Drug Dosing 157.2 Est GFR ( Amer) 129.3 Est GFR (Non-Af Amer) 111.6 BUN/Creatinine Ratio 17.2 Glucose 168 H POC Glucose Calcium 9.4 11/07/19 11/07/19 07:07 08:12 WBC RBC Hgb Hct MCV MCH MCHC RDW Std Deviation RDW Coeff of Maira Plt Count MPV Immature Gran % (Auto) Neut % (Auto) Lymph % (Auto) [place] % (Auto) Eos % (Auto) Baso % (Auto) Immature Gran # (Auto) Neut # (Auto) Lymph # (Auto) [place] # (Auto) Eos # (Auto) Baso # (Auto) PT INR APTT 44.2 H PTT Ratio 1.6 Sodium Potassium Chloride Carbon Dioxide Anion Gap BUN Creatinine Est Cr Clr Drug Dosing Est GFR ( Amer) Est GFR (Non-Af Amer) BUN/Creatinine Ratio Glucose POC Glucose 150 H Calcium Medications Administered Current Inpatient Medications Acetaminophen (Tylenol) 650 mg PO Q4H PRN PRN Reason: Pain or Fever Stop: 12/02/19 20:47 Hydrocodone Bitart/Acetaminophen ([place] 5/325) 2 tab PO Q6H PRN PRN Reason: Pain Stop: 11/16/19 20:47 Last Admin: 11/05/19 15:39 Dose: 2 tab Documented by: Al Hydrox/Mg Hydrox/Simethicone (Maalox) 15 ml PO Q4H PRN PRN Reason: Dyspepsia Stop: 12/02/19 20:47 Albuterol (Ventolin Hfa) 2 puffs INH QID PRN PRN Reason: Shortness Of Breath Stop: 12/02/19 20:47 Last Admin: 11/05/19 16:24 Dose: 2 puffs Documented by: Albuterol (Combivent Respimat) 2 puffs INH QID PRN PRN Reason: Shortness Of Breath Or Wheezing Stop: 12/02/19 20:47 Aspirin (Ecotrin) 325 mg PO QAM [facility] Stop: 12/03/19 08:59 Last Admin: 11/07/19 08:50 Dose: 325 mg Documented by: Cilostazol (Pletal) 100 mg PO BID [facility] Stop: 12/02/19 20:59 Last Admin: 11/07/19 08:50 Dose: 100 mg Documented by: Dextrose (Dextrose 50%) 25 - 50 ml IV UD PRN; Protocol PRN Reason: Hypoglycemia Protocol Stop: 12/02/19 20:47 Ferrous Sulfate (Feosol) 325 mg PO BIDM [facility] Stop: 12/03/19 07:59 Last Admin: 11/07/19 08:51 Dose: 325 mg Documented by: Gabapentin (Neurontin) 800 mg PO BID [facility] Stop: 12/02/19 20:59 Last Admin: 11/07/19 08:50 Dose: 800 mg Documented by: Glucagon (Glucagen) 1 mg SQ UD PRN; Protocol PRN Reason: Hypoglycemia Protocol Stop: 12/02/19 20:47 Glucose (Dex4 Glucose) 4 - 8 tabs PO UD PRN; Protocol PRN Reason: Hypoglycemia Protocol Stop: 12/02/19 20:47 Glucose (Glucose 40%) 15 - 30 gm PO UD PRN; Protocol PRN Reason: Hypoglycemia Protocol Stop: 12/02/19 20:47 Hydromorphone HCl (Dilaudid) 2 mg PO Q4H PRN PRN Reason: Pain Stop: 11/18/19 09:02 Last Admin: 11/07/19 09:03 Dose: 2 mg Documented by: Hydromorphone HCl (Dilaudid) 1 mg IV Q4H PRN PRN Reason: Pain Stop: 11/21/19 08:36 Heparin Sodium/Dextrose (Heparin Sodium/Dextrose) 25,000 units in 500 mls @ 36 mls/hr IV .[id number] [facility]; Protocol Stop: 12/02/19 18:14 Last Titration: 11/07/19 09:29 Dose: 1,800 units/hr, 36 mls/hr Documented by: Insulin Aspart (Novolog Flexpen) 0 units SC ACHS [facility] Stop: 12/02/19 21:29 Last Admin: 11/07/19 08:48 Dose: 3 units Documented by: Insulin Glargine (Lantus Solostar Pen) 15 units SC HS [facility] Stop: 12/06/19 16:59 Last Admin: 11/06/19 18:08 Dose: 15 units Documented by: Magnesium Hydroxide (Milk Of Magnesia) 30 ml PO Q12H PRN PRN Reason: Constipation Stop: 12/02/19 20:47 Miscellaneous (Carbohydrates For Hypoglycemia) 15 - 30 gm PO UD PRN PRN Reason: Hypoglycemia Protocol Stop: 12/02/19 20:47 Miscellaneous Information (Consult Glycemic Management Pharmacy) 1 ea N/A UD PRN; Protocol PRN Reason: Consult Stop: 12/02/19 20:51 Ondansetron HCl (Zofran) 4 mg IV Q6H PRN PRN Reason: Nausea Stop: 12/02/19 20:47 Polyethylene Glycol (Miralax Powder Packet) 17 gm PO DAILY PRN PRN Reason: Constipation Stop: 12/02/19 20:47 Warfarin Sodium (Coumadin) 10 mg PO DAILY@1600 [facility] Stop: 12/07/19 15:59 Resident Activity Tracking Resident Involvement: Resident Care Provided Care Provided: Adult Hospital Medicine (1) 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
[2019-11-07] MEDS: HEPARIN SODIUM/DEXTROSE 25,000 UNITS/500 ML BAG IV SCH (12:40)
--- NOTE | 2019-11-07 15:15 | Pharmacy Report ---
Pharmacy Glycemic Short Note 2 - Date of Service November 07, 2019 - Glycemic Short BSG Results (Last 24 hours): 11/06/19 11/06/19 11/07/19 17:09 21:07 07:07 Glucose 168 H POC Glucose 173 H 189 H 11/07/19 11/07/19 08:12 12:17 Glucose POC Glucose 150 H 194 H OUTPATIENT ANTIDIABETIC REGIMEN: * Toujeo 15 units SQ qPM * Jardiance 10 mg qAM, metformin 1000 mg BID * Trulicity 0.75 mg SQ on Saturdays * A1c = 5.8% 11/03/19 ASSESSMENT: * Gustavo received 42 units of insulin yesterday with decent BSG control * 15 units of basal * 27 units of bolus * BSG ranged from 146 - 189 mg/dL * Fasting BSG slightly above goal. Will increase Lantus 13%. * Will slightly tighten Novolog correction factor and carb ratio due to post prandial BSGs above goal. PLAN FOR INPATIENT GLYCEMIC CONTROL: * Hold outpatient oral diabetes medications * Basal insulin * Lantus 17 units SQ qPM * Bolus insulin * NovoLog per scale ACHS or Q6hrs while NPO * Goal Range: Low 110 mg/dL - High 140 mg/dL * Correction Factor: 25 mg/dL/unit * Nutritional / Prandial insulin per carb ratio of 1 unit per 8 grams CHO consumed PLAN FOR DISCHARGE: * A1c of 5.8% indicates excellent glycemic control * Continue regimen management and titration per outpatient provider
[2019-11-07] MEDS: WARFARIN SOD 10 MG TAB PO SCH (16:15)
[2019-11-07] MEDS: HYDROCODONE/ACETAMOPHEN 5/325MG TAB PO PRN ×2 (16:20→22:25)
[2019-11-07 16:50] LABS: Partial Thromboplastin Ratio 1.8
[2019-11-07 16:52] LABS: Partial Thromboplastin Time 49.5 Seconds (21.0-31.0)
[2019-11-07] MEDS ORDERED: INSULIN GLARGINE SOLOSTAR 100 UNITS/ML 3 ML PEN SC SCH (21:00)
[2019-11-08] MEDS: HYDROmorphone HCL 2 MG TAB PO PRN (01:56)
[2019-11-08] MEDS: HEPARIN SODIUM/DEXTROSE 25,000 UNITS/500 ML BAG IV SCH (04:10)
[2019-11-08 08:03] LABS: Basophils # (auto) 0.05 K/uL (0-0.2); Basophils % (auto) 0.7 %; Eosinophils # (auto) 0.26 K/uL (0-0.5); Eosinophils % (auto) 3.8 %; Hematocrit (blood only) 42.7 % (42-52); Hemoglobin 14.1 g/dL (14.0-18.0); Immature Granulocytes # (auto) 0.01 K/uL (0.00-0.02); Immature Granulocytes % (auto) 0.1 %; Lymphocytes # (auto) 2.14 K/uL (1.2-3.4); Lymphocytes % (auto) 30.9 %; Mean Corpuscular Hemoglobin 31.3 pg (25-34); Mean Corpuscular Volume 94.9 fL (80-100); Mean Platelet Volume 8.5 fL (7.4-10.4); Monocytes # (auto) 0.52 K/uL (0.11-0.59); Monocytes % (auto) 7.5 %; Neutrophils # (auto) 3.94 K/uL (1.4-6.5); Platelet Count 272 K/uL (130-400); RDW Coefficient of Variation 14.7 % (11.5-14.5); White Blood Count 6.92 K/uL (4.8-10.8)
[2019-11-08 08:25] LABS: INR 1.8 (0.9-1.1); Partial Thromboplastin Ratio 2.2; Prothrombin Time 17.6 Seconds (9.0-12.0)
[2019-11-08 08:26] LABS: Partial Thromboplastin Time 60.4 Seconds (21.0-31.0)
[2019-11-08 08:41] LABS: BUN Creatinine Ratio 19.3 (10-20); Calcium 9.2 mg/dl (8.5-10.1); Creatinine Clr Calc Pharmacy 162.7 ml/min; Est GFR (African American) 131.2; Est GFR (Non-African American) 113.2; Potassium 3.6 mmol/L (3.5-5.1)
[2019-11-08] MEDS: INSULIN ASPART 100 UNITS/ML 3 ML PEN SC SCH ×2 (09:09→12:57)
[2019-11-08] MEDS: cilostazoL 100 MG TAB PO SCH (09:11)
[2019-11-08] MEDS: FERROUS SULFATE 325 MG TAB PO SCH (09:12)
[2019-11-08] MEDS: ASPIRIN 325 MG ECTAB PO SCH (09:12)
[2019-11-08] MEDS: GABAPENTIN 800 MG TAB PO SCH (09:12)
[2019-11-08] MEDS: HYDROCODONE/ACETAMOPHEN 5/325MG TAB PO PRN (10:27)
--- NOTE | 2019-11-08 12:03 | Surgery Progress Note ---
Date of Service November 08, 2019 Assessment & Plan (1) Ischemic pain of left foot: Doing well post thrombectomy. INR 1.8 today, per luba Alanis for d/c home on Lovenox bridge until INR fully therapeutic. Preferred INR range of 2.5-3.5 d/t previous thrombosis of graft with therapeutic INR. Home nursing will need notified of return home for wound care. Will see in office in 2 weeks. Subjective 59yo m with multiple medical problem, s/p LLE fem-distal BPG thrombectomy, seen in f/u today. Pt states feeling better than yesterday. Admits some pain in L toes, but nothiing like what he was experiencing prior to arrival. Denies any other new complaints. INR 1.8 today. Review of Systems Review of Systems: All systems reviewed & are unremarkable except as noted in HPI & below Physical Exam Constitutional: WD/WN, vitals as above cooperative; not in distress Cardiovascular: RRR, no murmur, no edema Vessels: femoral pulses present (RLE), posterior tibial pulses present, dorsalis pedis pulses present and radial pulses present; + abnormal peripheral pulses Extremities: normal capillary refill (BLE 3 sec); no edema Gastrointestinal (Abdomen): normal bowel sounds, soft, nontender, no hepatosplenomegaly Inspection/Auscultation: + abdominal surgical incision (L abd wound vac in place. Other surgical wounds healed.) Musculoskeletal: Extremities: + abnormal strength and + lower extremity abnormal to inspection Left (Warm, pink. mild erythema to toes. medial malleolus shallow open area with scab noted) Skin: normal turgor and + eschar (R heel tender) Neurologic: moves all extremities Psychiatric: A+Ox3, euthymic affect Orientation: alert and oriented x 3 Affect: + irritable affect and + angry affect Results & Data Vital Signs (Past 12 Hours) Vital Signs Temp Pulse Resp BP Pulse Ox 11/08/19 07:35 36.6 C 84 16 138/81 95
[2019-11-08] MEDS: WARFARIN SOD 10 MG TAB PO SCH (15:33)
--- NOTE | 2019-11-08 17:20 | Discharge Summary ---
Date of Service November 08, 2019 Admission HPI Per Admitting Provider The patient is a 59 years old male with past medical history of obstructive sleep apnea on CPAP, hypertension, COPD, diabetes mellitus type 2, peripheral vascular disease, neuropathy, abdominal infection, tobacco abuse, who presents to the emergency room with a complaint of left foot pain. Patient reports that he had a femoropopliteal artery replaced in his left leg last Wednesday which was October 25/[address] Alanis vascular surgery. He states that his left foot pain began yesterday and worsened throughout the night. Currently he noted his left foot is very red swollen and sore. Patient rates his pain as a 10 of 10 in severity. He states his home health nurse came to the house today and could not find a pulse of his left foot. Patient decided to come to the emergency room to be checked. Labs are reviewed: WBCs 10.56, hemoglobin 14.3, hematocrit 44.9 platelets 270. PT 22, INR 2.3, sodium 136, potassium 4.3, chloride 101, carbon dioxide 29, anion gap 6, BUN 14, creatinine 0.79 GFR 99, glucose 154, lactate 2.5, calcium 9, bilirubin 0.2, AST 9, ALT 27, alkaline phosphatase 78, total protein 7.5, albumin 3.5, globulin 4, TSH 0.538. Urine yellow, appearance clear, specificity 1.0 45, urine protein negative, glucose 3+, urine ketones negative, urine blood negative,urine nitrate negative,urine bilirubin negative urobilinogen negative,leukocyte esterase negative.CTA abdominal aorta runof w con: Left anterior abdominal wall graft patent along with right branch with less than 50% in-stent stenosis and occlusion of the left abdominal wall branch. The right branch inserts into the right common femoral artery and the left branch inserts onto the left anterior tibial artery. Severe stenosis of the bilateral external iliac arteries. Occlusion of the left superficial femoral artery to the level of the proximal right popliteal artery. Occlusion of the left superficial femoral artery to the level of the mid left popliteal artery. Patent right lower leg and right foot arteries. Greater plantar and dorsal flow to the left foot. The predominantly patent artery is the left anterior tibial artery with minimal flow in the posterior tibial and peroneal arteries. CTA of the chest: There is no aneurysm or dissection involving the thoracic aorta. Visualized portion of the left axillofemoral bypass graft transversing the left chest wall are patent. There is no evidence of pulmonary embolus in the main, lobar or segmental pulmonary arteries. Cardiomegaly and mild emphysema. There is no airspace consolidation or pleural effusion. Decision was made to admit patient to PCU on telemetry for ishemic left foot. Principal Diagnosis LE thrombosis Discharge Exam Constitutional WD/WN, vitals as above + obese Eyes PERRL, conjunctivae normal, anicteric sclerae ENMT external ear and nose normal, oropharynx normal Respiratory normal respiratory effort, lungs clear to auscultation Cardiovascular RRR, no murmur, no edema Gastrointestinal (Abdomen) normal bowel sounds, soft, nontender, no hepatosplenomegaly Skin no rashes, warm and dry Psychiatric A+Ox3, euthymic affect Mood: + irritable mood Discharge Data Allergies Allergy/AdvReac Type Severity Reaction Status Date / Time Penicillins Allergy Severe THROAT Verified 11/02/19 17:38 SWELLS AND HIVES Consultations 11/02/19 18:24 ED Decision to Admit Stat 11/02/19 20:48 Consult Vascular Surgery Routine 11/04/19 08:00 Consult Case Management - Discharge Planning Routine 11/04/19 19:38 Consult Infectious Diseases Routine Procedures Performed Operation Date: 11/03/19 14:50 Actual Procedures p Thrombectomy of Left Leg Bypass, Stenting of left posterial tibial artery, arteriogram left lower extremity(Left) - Denis Alanis MD Ordered Studies 11/02/19 16:16 CT angio abd aorta runof w con Stat CT angio chest w con Stat 11/03/19 16:04 EV angio LE LT Urgent Hospital Course (1) 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 Alanis vascular surgery with L foot pain found to have graft thrombosis. The following was the medical management during stay here: Cellulitis-resolved -Blood culture x1 (patient refused second) NGTD. Started empirically on Vanc + Imipenem due to penicillin allergy. Initial plan to switch to PO antibiotics to cover MRSA given history (previously sensitive to both doxycyline and Bactrim, resistant to clindamycin). Reflex consultation to infectious disease due to imipenem use - pt also had multiple infections in the past. -ID Consult: no evidence of infection, likely related to vascular issues/occlusion. Stopped abx 11/06 Vascular occlusion -Left lower extremity graft thrombosis causing occlusion -11/03 pt went into OR: Thrombectomy of Left Leg Bypass, Stenting of left posterial tibial artery, arteriogram left lower extremity performed -We continued Heparin infusion while warfarin was restarted -Difficulties with maintaining therapeutic INR, increased Warfarin up to 10 mg -on day of d/c, INR 1.8, which was acceptable for vascular sx -pt d/c home on Lovenox bridge for 5 days until INR fully therapeutic. Resumed home dose of Warfarin 5 mg -repeat PT/INR on Wednesday. Lab script given to pt. Preferred INR range of 2.5-3.5 d/t previous thrombosis of graft with therapeutic INR -pt to have vascular sx f/u in office in 2 weeks, they will arrange for this Ischemic pain of left foot -Dilaudid 1mg IV for severe pain, hydromorphone 2mg PO for moderate pain, [place] for mild pain -relatively well controlled here with above management -pt has PO norco at home for pain management Peripheral arterial disease -Severe with multiple vascular surgeries -Continue ASA and Cilotazol Diabetes mellitus, type 2 -HbA1C 5.8. Sugars controllled here using SSI COPD -No acute exacerbation Continue home medicine Combivent Respimat 2 puffs inhalation 4 times daily as needed. Albuterol sulfate 2 puffs inhalation 4 times daily as needed HTN -Held lisinopril this admission given low BP's. Pt to resume this on d/c JAMES on CPAP -Patient has his CPAP. -Continue his own CPAP. 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 Improves the more he walks. Continue PT. Previously evaluated by orthopedics on last admission and pain due to PAD, no orthopedic surgery recommended. Pt d/c home, as he did not wish to go to inpatient physical rehab. On day of d/c, pt with no other acute concerns or complaints. Total Time Total Time Spent Total Time Spent (In Minutes): 30 Discharge Plan Discharge Items Patient Disposition: Home - Home Health Services Reason For Visit: LLE PAIN Discharge Diagnosis: leg thrombus Activity: Per Instructions section Non-emergency contact: Primary Care Provider Call non-emergency contact if: you have any medication questions, your symptoms worsen, your pain is not controlled and your temperature is above 101.5 Follow-up/Referrals: Luis Lemon M.D. [Primary Care Provider] - Diet: Carb Consistent or DM2 and Heart Healthy Addtl Attending Provider Instructions: You were admitted with concern for leg graft thrombus, which was repaired by Dr. Alanis. Please follow the below instructions on discharge: -please follow up with your PCP as soon as possible for hospital follow up -Dr. Alanis's office will reach out to you for outpatient follow up appt -you will go back on to your regular dose of warfarin 5mg on discharge -you will do a daily lovenox injection as we wait for your INR to get in the therapeutic range. This injection will be for 5 days -you will repeat labs to check your INR on wednesday. You will be given a script for this to take to the lab Pending Studies at Discharge: No Stand-Alone Forms: My [facility] [employer], Smoking Cessation Medications and DC Order Prescriptions: New enoxaparin [Lovenox] 120 mg/0.8 mL syringe 120 mg SQ DAILY 5 Days Qty: 4 RF: 0 Continued cilostazol 100 mg Tablet 100 mg PO BID RF: 0 gabapentin [Neurontin] 800 mg Tablet 800 mg PO BID RF: 0 Trulicity 0.75 mg/0.5 mL Pen Injector 0.75 mg SUBCUT SA RF: 0 [place]wn SoloStar U-300 Insulin 300 unit/mL (1.5 mL) Insulin Pen 15 unit SUBCUT QPM RF: 0 aspirin [Cinthia Aspirin] 325 mg Tablet 325 mg PO QAM RF: 0 metformin 1,000 mg Tablet 1,000 mg PO BID RF: 0 albuterol sulfate [Ventolin HFA] 90 mcg/actuation Hfa Aerosol Inhaler 2 puff INHALATION QID PRN (Reason: Shortness Of Breath) RF: 0 Jardiance 10 mg Tablet 10 mg PO QAM RF: 0 Combivent Respimat 20-100 mcg/actuation Mist 2 puff inhalation QID PRN (Reason: Shortness Of Breath Or Wheezing) RF: 0 warfarin [Coumadin] 5 mg tablet 5 mg PO QDD RF: 0 lisinopril 40 mg Tablet 20 mg PO QAM Qty: 0 RF: 0 ferrous sulfate 325 mg (65 mg iron) Tablet,Delayed Release (Dr/Ec) 325 mg PO BIDM Qty: 60 RF: 0 hydrocodone-acetaminophen [[place]] 5-325 mg tablet 2 tab PO Q6H PRN (Reason: Pain) RF: 0 Discharge Orders: Discharge Order (Routine); Ordered 11/08/19 Ordered By: Torsten Hu/Other Patient Handouts: Enoxaparin Sodium Porcine Solution for injection Admission Data Admit Date/Time: 11/02/19 19:24 Attending Provider: Byron Fritz Admit Provider: Holley Oden Primary Care Provider: Luis Lemon Other Providers: [facility] ; Holley Oden ; Denis Alanis ; Claudette Mariscal Other Interventions: Discharge Summary Assessment (RN) Last Done: 11/08/19 15:24 DC Date/Time DO NOT enter until pt leaves facility: 11/08/19 16:30 Supervising Physician Co-Signing Physician Notes I saw the patient with Dr. Vera and confirmed perez portions of the history and e xam. I also discussed the case with the vascular surgery team. Given today's INR, vascular has cleared the patient for discharge with a Lovenox bridge. Given his apparent thrombosis on therapeutic Coumadin, recommendation is for a INR range of 2.5-3.5. Resume Coumadin 5 mg daily; with his increased loading dose over the last 2 doses, suspect will see increase in his INR tomorrow despite decreasing his Coumadin today. Lovenox 120 mg every 24 hours; he will get a dose prior to discharge when the heparin drip is discontinued, then every 24 hours thereafter at home. The patient is given self Lovenox before so he is well versed in the procedure. INR in 2 days; again goal was 2.5-3.5, and ideally he should have a 48-hour overlap between therapeutic INR and Lovenox. Resident Activity Tracking Resident Involvement: Resident Care Provided Care Provided: Adult Hospital Medicine
== END 2019-11-08 16:30 | disposition home health service (06) | DRG 253 ==
LOC: ED 15:25 → 2S 19:24 → SUATTDRO 19:24 → 2S 20:30 → 3W 11-04 11:35

== ENCOUNTER 2019-11-10 18:00 | Inpatient (IN) ==
--- NOTE | 2019-11-10 23:13 | History & Physical Report ---
Date of Service November 10, 2019 Assessment & Plan (1) Vascular occlusion: Kennedy is a 59-year-old male with a past medical history of type 2 diabetes mellitus, JAMES on CPAP, COPD, hypertension, peripheral artery disease status post left femoropopliteal bypass, and tobacco abuse who was recently admitted from 11/02 to 11/08 for cellulitis and vascular occlusion who presents with a cold left foot and who is been admitted for left extremity vascular occlusion. Vascular occlusion Patient with left femoropopliteal bypass with subsequent thrombectomy of left leg bypass and stenting of the left posterior tibial artery on 11/03 Patient presents today with a cold left foot, absent DP/PT/popliteal pulses to palpation and Doppler Case discussed with Dr. Alanis. Recommend heparin GTT overnight with vascular evaluation in the morning. Consult placed. Patient in no pain at time of visit. If he develops ischemic pain, morphine 2 mg to 4 mg for moderate to severe pain. If he develops worsening ischemic pain similar to his prior hospitalization may convert this to hydromorphone 1 mg to 2 mg IV. Heparin GTT, monitor for signs of bleeding as below. PTT per protocol. Hold warfarin. Continue wound VAC maintenance of left abdominal site. Continue cilostazol 100 mg p.o. twice daily Oral mucosa bleeding/oozing Report of gums bleeding on transport to [facility]. On evaluation gums are slightly oozing, but not acutely bleeding. No posterior epistaxis or signs of GI bleeding. Risk/benefits of heparin GTT discussed with patient, including management of his vascular occlusion and risk of bleeding. Patient agreeable to resuming heparin GTT with close monitoring for signs of bleeding. Consented to blood transfusion if necessary. 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 at midnight. DVT prophylaxis: Heparin as above CODE STATUS: DNR/DNI. Discussed with patient. He would be amenable to intubation for respiratory distress if needed, but does not want chest compressions or intubation as part of a code situation. He reports that if he were to be ventilated for respiratory status but had a prolonged course, he would wants to be converted and sustained with a tracheostomy. Reports his would be his surrogate decision maker. (2) Diabetes: (3) Hypertension: (4) JAMES on CPAP: (5) Peripheral arterial disease: (6) Diabetes mellitus, type 2: (7) Tobacco abuse: History of Present Illness Chief Complaint: Cold left foot Primary Care Provider: Luis Xochilt Benavides is a 59-year-old male with a past medical history of type 2 diabetes mellitus, JAMES on CPAP, COPD, hypertension, peripheral artery disease status post left femoropopliteal bypass, and tobacco abuse who was recently admitted from 11/02 to 11/08 for cellulitis and vascular occlusion who presents with a cold left foot and who is been admitted for vascular evaluation and intervention. Kennedy reports that after returning home from the hospital 2 days ago he continued to have pain in his left foot, but was otherwise doing well. During his previous admission he had a thrombectomy of the left bypass with left posterior tibial artery stenting on 11/03 and was discharged on a Lovenox to warfarin bridge with follow-up to vascular in 2 weeks. Wednesday night he had no pain at all in his foot, and morning he continued to have no pain but noticed his foot was very cold and mottled. He had been taking his Lovenox bridge as directed but had an INR that was elevated to 4.5 which subsequently decreased to 3.5 and [place] after holding a dose of warfarin. He presented with the above complaint to [place] and was noted to have no left-sided popliteal or PT pulses and was transferred to [facility] for further vascular care. Case was discussed prior to admission with Dr. Alanis who recommended heparin gtt. overnight with vascular follow-up in the morning. Kennedy reports numbness in the left foot, but no tingling. He reports his gums were noted to be bleeding on the way to [facility] in the setting of heparin administration and a supratherapeutic INR. Heparin was held at that time. Patient denies other symptoms. Past medical history: Reviewed in EMR Past surgical history: Reviewed in EMR Medications: Reviewed, up-to-date in EMR Allergies Allergy/AdvReac Type Severity Reaction Status Date / Time Penicillins Allergy Severe THROAT Verified 11/02/19 17:38 [place]OR[place]IE Home Medications Home Medications Medication Instructions Recorded Confirmed Type Combivent Respimat 2 puff INHALATION QID PRN 05/01/19 11/02/19 History Jardiance 10 mg PO QAM 05/01/19 11/02/19 History Reynaldo EspinaloStar U-300 Insulin 15 unit SUBCUT QPM 05/01/19 11/02/19 History Trulicity 0.75 mg SUBCUT SA 05/01/19 11/02/19 History albuterol sulfate [Ventolin HFA] 2 puff INHALATION QID PRN 05/01/19 11/02/19 History aspirin [Cinthia Aspirin] 325 mg PO QAM 05/01/19 11/02/19 History cilostazol 100 mg PO BID 05/01/19 11/02/19 History gabapentin [Neurontin] 800 mg PO BID 05/01/19 11/02/19 History metformin 1,000 mg PO BID 05/01/19 11/02/19 History ferrous sulfate 325 mg PO BIDM #60 tab 08/01/19 11/02/19 Rx warfarin [Coumadin] 5 mg PO QDD 10/19/19 11/02/19 History lisinopril 20 mg PO QAM #0 tab 10/26/19 11/02/19 Rx hydrocodone-acetaminophen [[place]] 2 tab PO Q6H PRN 11/02/19 11/02/19 History enoxaparin [Lovenox] 120 mg SQ DAILY 5 Days #4 ml 11/08/19 Rx Past Med/Surg History Medical History Arthritis Chronic back pain Chronic obstructive pulmonary disease Diabetes mellitus, type 2 Diabetic neuropathy, type II diabetes mellitus Diverticulitis (Resolved) History of transfusion Hypertension Neuropathy PVD (peripheral vascular disease) Sleep apnea CPAP HS SOB (shortness of breath) on exertion 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 Beliefs That Will Affect Care: None marital status: Current Living Situation: Spouse Current Living Situation Comment: only Other Information That Helps Us Care for You: No Feels Safe at Home: Yes Safety Concerns: Feels Safe At This Time Smoking Status: Former smoker Tobacco Type: cigarettes ; Cigarettes Per Day: 16 ; Second Hand Exposure: No ; Tobacco Cessation Education Requested by Patient: No Hx Alcohol Use: No Hx Substance Use: No Review of Systems Review of Systems: Constitutional: Denies fever, chills, malaise, weight change Eyes: Denies double vision, vision change, eye pain ENT: Denies ear pain, sore throat, sinus pain Cardiovascular: Denies Chest pain, chest pressure, palpitations. Endorses oozing blood from his gums, denies epistaxis or other signs of bleeding. Respiratory: Denies shortness of breath, cough, sputum production, difficulty breathing Gastrointestinal: Denies abdominal pain, nausea, vomiting, constipation, diarrhea. Denies melena or bright red blood per rectum Genitourinary: Denies pain with urination, urinary urgency, urinary frequency Musculoskeletal: Denies weakness, muscle aches/pain, joint aches/pain. Denies any pain in his left foot. Integumentary: Endorses intermittent scalp rash. Neurological: Denies headache. Endorses numbness of his left foot. Physical Exam Physical Exam: General: A&Ox3. NAD. Cooperative. HEENT: Atraumatic, normocephalic. External ear anatomy normal, atraumatic. External nasal anatomy normal, atraumatic. No epistaxis. No nasolabial fold flattening. Oral mucosa moist. Slight oozing of blood from the gumline at both canines superiorly, no aaron bleeding. No blood in the posterior oropharynx. Pulm: CTAB A&P. -wheezes, -rales, -rhonchi. Symmetrical chest rise. No increase work of breathing. No respiratory distress. Cardiac: RRR, soft systolic murmur appreciated. Radial pulses intact and symmetrical. Right PT pulse intact to palpation. Left peripheral pulses as noted in extremity exam below. Abdominal: Nontender, nondistended, soft. BS present. Left lower abdomen with wound VAC in place at surgical site, no thymus/warmth/purulence. Extremity: Left lower extremity with numbness to soft touch in all toes and the dorsal and plantar forefoot. Slight sensation to soft touch at the ankle medial and laterally. Diminished sensation to soft touch in the distal calf, sensation symmetrical compared to the right at the level of the distal thigh. Left foot cool, mottled. Left proximal calf warm. PT/DP/popliteal pulses not appreciated to Doppler. Weak femoral pulse appreciated. CN II: Visual marlow are full to confrontation. Pupils are equal and react to light and accomidation. Visual acuity grossly intact. CN III, IV, : At primary gaze, there is no eye deviation. EoM intact without nystagmus. No visual field cuts. CN VII: No facial asymmetry, full strength to eyebrow raise, smile, eye close, and cheek puff. CN VII: Hearing is grossly intact. CN IX, X: Palate elevates symmetrically. Phonation is normal without dysarthria. CN XI: Head turning and shoulder shrug are intact CN XII: Tongue protrudes midline. Results & Data Vital Signs (Past 12 Hours) Vital Signs Temp Pulse Resp BP Pulse Ox 11/10/19 21:45 36.7 C 63 18 127/70 96 Supervising Physician Co-Signing Physician Notes Patient was seen and examined by me personally. I reviewed the chart, the orders and discussed the case in detail with Dr. Shree Yao MD . I read this H&P and agree with its contents to entirety. 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
[2019-11-10] MEDS ORDERED: GLUCOSE 10 TABS/TUBE PO PRN (23:27)
[2019-11-10] MEDS ORDERED: Heparin IV Standard *NO* Bolus IV STA (23:27)
[2019-11-10] MEDS ORDERED: GLUCOSE 40% GEL 15 GM TUBE PO PRN (23:27)
[2019-11-10] MEDS ORDERED: CARBOHYDRATES FOR HYPOGLYCEMIA PO PRN (23:27)
[2019-11-10] MEDS ORDERED: GLUCAGON FOR INJ 1 MG VIAL SQ PRN (23:27)
[2019-11-10] MEDS ORDERED: IPRATROPIUM BROMIDE/ALBUTEROL respimat INH INH PRN (23:27)
[2019-11-10] MEDS ORDERED: DEXTROSE 50% 50 ML SYRINGE IV PRN (23:27)
[2019-11-10] MEDS ORDERED: PHARMACY GLYCEMIC MGMT CONSULT PRN (23:57)
[2019-11-10 23:59] LABS: Basophils # (auto) 0.06 K/uL (0-0.2); Basophils % (auto) 0.8 %; Eosinophils # (auto) 0.25 K/uL (0-0.5); Eosinophils % (auto) 3.3 %; Hematocrit (blood only) 42.1 % (42-52); Hemoglobin 13.6 g/dL (14.0-18.0); Immature Granulocytes # (auto) 0.01 K/uL (0.00-0.02); Immature Granulocytes % (auto) 0.1 %; Lymphocytes # (auto) 2.27 K/uL (1.2-3.4); Lymphocytes % (auto) 29.8 %; Mean Corpuscular Hemoglobin 31.7 pg (25-34); Mean Corpuscular Volume 98.1 fL (80-100); Mean Platelet Volume 8.5 fL (7.4-10.4); Monocytes # (auto) 0.49 K/uL (0.11-0.59); Monocytes % (auto) 6.4 %; Neutrophils # (auto) 4.53 K/uL (1.4-6.5); Neutrophils % (auto) 59.6 %; Platelet Count 285 K/uL (130-400); RDW Coefficient of Variation 15.5 % (11.5-14.5); RDW Standard Deviation 55.5 fL (36.4-46.3); Red Blood Count 4.29 M/uL (4.7-6.1); White Blood Count 7.61 K/uL (4.8-10.8)
[2019-11-11 00:10] LABS: Mean Corpuscular Hgb Conc 32.3 g/dL (32-36)
[2019-11-11] MEDS ORDERED: MoRPHine SULFATE 2 MG/ML CARP IV PRN (00:23)
[2019-11-11 00:28] LABS: INR 3.4 (0.9-1.1); Partial Thromboplastin Ratio 1.7; Prothrombin Time 31.8 Seconds (9.0-12.0)
[2019-11-11] MEDS ORDERED: MoRPHine SULFATE 2 MG/ML CARP ONE (00:31)
[2019-11-11] MEDS: HEPARIN SODIUM/DEXTROSE 25,000 UNITS/500 ML BAG IV SCH ×2 (00:33→16:34)
[2019-11-11 00:37] LABS: Partial Thromboplastin Time 45.3 Seconds (21.0-31.0)
[2019-11-11] MEDS: INSULIN ASPART 100 UNITS/ML 3 ML PEN SC SCH ×5 (00:49→21:36)
--- NOTE | 2019-11-11 06:26 | Billing Data ---
Date of Service November 10, 2019 Coding Level of Care Code 93921 Initial Inpt Care Lvl 3
[2019-11-11 06:38] LABS: Basophils # (auto) 0.06 K/uL (0-0.2); Basophils % (auto) 0.8 %; Eosinophils # (auto) 0.27 K/uL (0-0.5); Eosinophils % (auto) 3.7 %; Hematocrit (blood only) 42.3 % (42-52); Hemoglobin 13.7 g/dL (14.0-18.0); Immature Granulocytes # (auto) 0.02 K/uL (0.00-0.02); Immature Granulocytes % (auto) 0.3 %; Lymphocytes # (auto) 1.95 K/uL (1.2-3.4); Lymphocytes % (auto) 26.5 %; Mean Corpuscular Hemoglobin 31.6 pg (25-34); Mean Corpuscular Hgb Conc 32.4 g/dL (32-36); Mean Corpuscular Volume 97.5 fL (80-100); Mean Platelet Volume 8.7 fL (7.4-10.4); Monocytes # (auto) 0.63 K/uL (0.11-0.59); Monocytes % (auto) 8.5 %; Neutrophils # (auto) 4.44 K/uL (1.4-6.5); Neutrophils % (auto) 60.2 %; Platelet Count 289 K/uL (130-400); RDW Coefficient of Variation 15.5 % (11.5-14.5); RDW Standard Deviation 55.8 fL (36.4-46.3); Red Blood Count 4.34 M/uL (4.7-6.1); White Blood Count 7.37 K/uL (4.8-10.8)
[2019-11-11 07:04] LABS: Partial Thromboplastin Ratio 2.6
[2019-11-11 07:11] LABS: BUN Creatinine Ratio 21.1 (10-20); Calcium 8.9 mg/dl (8.5-10.1); Creatinine Clr Calc Pharmacy 148.1 ml/min; Est GFR (African American) 125.9; Est GFR (Non-African American) 108.6; Potassium 4.3 mmol/L (3.5-5.1)
[2019-11-11] MEDS: MoRPHine SULFATE 4 MG/ML 1 ML CARP\\VIAL IV PRN ×2 (07:17→11:21)
[2019-11-11 07:21] LABS: Partial Thromboplastin Time 69.8 Seconds (21.0-31.0)
--- NOTE | 2019-11-11 08:06 | Consultation ---
Date of Consultation November 11, 2019 Assessment & Plan (1) Vascular graft occlusion: This gentleman has had multiple occlusions of his bypass graft while on anticoagulation. This time his INR was therapeutic and he still occluded the left leg bypass on physical exam. We will confirm the occlusion with a duplex study. If his graft is occluded which most likely it is we will plan on doing a thrombectomy on Wednesday. We also consulted hematology for their input as far as what type of anticoagulation may be needed to keep his grafts open. We will keep her on heparin at this time. His pain is tolerable and his foot is viable at this time. Thank you very much for letting us participate in the care of this patient. History of Present Illness Reason for Consultation: Left foot pain Attending Physician: Tulio Kwok History of Present Illness This is a 59-year-old gentleman well-known to our service. He just recently went home after thrombectomy of his left leg bypass. He was doing fine at home. Once he was ambulating he had total resolution of the pain of his left foot. This suddenly came back on 2 days prior to this admission. He was found to have a cool foot by his visiting nurses. He is admitted with left foot pain and possible occlusion of his bypass. Allergies Allergy/AdvReac Type Severity Reaction Status Date / Time Penicillins Allergy Severe THROAT Verified 11/02/19 17:38 SWELLS AND HIVES Home Medications Home Medications Medication Instructions Recorded Confirmed Type Combivent Respimat 2 puff INHALATION QID PRN 05/01/19 11/02/19 History Jardiance 10 mg PO QAM 05/01/19 11/02/19 History Tresudeshawn Perkins U-300 Insulin 15 unit SUBCUT QPM 05/01/19 11/02/19 History Trulicity 0.75 mg SUBCUT SA 05/01/19 11/02/19 History albuterol sulfate [Ventolin HFA] 2 puff INHALATION QID PRN 05/01/19 11/02/19 History aspirin [Cinthia Aspirin] 325 mg PO QAM 05/01/19 11/02/19 History cilostazol 100 mg PO BID 05/01/19 11/02/19 History gabapentin [Neurontin] 800 mg PO BID 05/01/19 11/02/19 History metformin 1,000 mg PO BID 05/01/19 11/02/19 History ferrous sulfate 325 mg PO BIDM #60 tab 08/01/19 11/02/19 Rx warfarin [Coumadin] 5 mg PO QDD 10/19/19 11/02/19 History lisinopril 20 mg PO QAM #0 tab 10/26/19 11/02/19 Rx hydrocodone-acetaminophen [[place]] 2 tab PO Q6H PRN 11/02/19 11/02/19 History enoxaparin [Lovenox] 120 mg SQ DAILY 5 Days #4 ml 11/08/19 Rx Patient History Medical History Arthritis Chronic back pain Chronic obstructive pulmonary disease Diabetes mellitus, type 2 Diabetic neuropathy, type II diabetes mellitus Diverticulitis (Resolved) History of transfusion Hypertension Neuropathy PVD (peripheral vascular disease) Sleep apnea CPAP HS SOB (shortness of breath) on exertion 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 Beliefs That Will Affect Care: None marital status: Current Living Situation: Spouse Current Living Situation Comment: only Other Information That Helps Us Care for You: No Feels Safe at Home: Yes Safety Concerns: Feels Safe At This Time Smoking Status: Former smoker Tobacco Type: cigarettes ; Cigarettes Per Day: 16 ; Second Hand Exposure: No ; Tobacco Cessation Education Requested by Patient: No Hx Alcohol Use: No Hx Substance Use: No Review of Systems Review of Systems: All systems reviewed & are unremarkable except as noted in HPI & below Physical Exam Constitutional: WD/WN, vitals as above Cardiovascular: Vessels: posterior tibial pulses present (No Doppler on the left foot) and dorsalis pedis pulses present (no Doppler on the left foot) Extremities: normal capillary refill (Decreased on the left foot) I cannot appreciate a pulse in the graft from his axillofemoral graft to his anterior tibial artery left leg. Neurologic: He is able to wiggle his toes of his left foot and does have sen sation. Psychiatric: Orientation: alert and oriented x 3 Results & Data Vital Signs (Past 12 Hours) Vital Signs Temp Pulse Pulse Resp BP Pulse Ox 11/11/19 07:25 36.5 C 89 18 150/83 H 94 11/10/19 23:17 36.5 C 83 18 102/63 95 11/10/19 21:45 36.7 C 63 18 127/70 96
[2019-11-11] MEDS ORDERED: Nursing to Pharmacy Communication ONE (08:51)
[2019-11-11] MEDS: lisinopriL 20 MG TAB PO SCH (09:16)
[2019-11-11] MEDS: INSULIN GLARGINE SOLOSTAR 100 UNITS/ML 3 ML PEN SC SCH (09:17)
--- NOTE | 2019-11-11 09:50 | Pharmacy Report ---
Glycemic Control Consultation - Date of Service November 11, 2019 - Scope Scope: Glycemic Pharmacist consulted by Dr Yao on 11/10/19 for glycemic control and to write orders per [facility] inpatient glycemic control protocol - Objective Weight: 91.9 kg Accuchecks BSG (last 24hrs): 11/11/19 11/11/19 11/11/19 00:10 06:11 06:21 Glucose 132 H POC Glucose 123 H 132 H Laboratory Data (last 24hrs): 11/11/19 06:21 Potassium 4.3 Carbon Dioxide 28 Anion Gap 5.0 Creatinine 0.63 Est Cr Clr Drug Dosing 148.1 - Recent Pertinent Medications Outpatient Anti-diabetic Regimen: * Toujeo 15 units SQ qPM (last dose taken 11/10 at 1100) * Jardiance 10 mg qAM, metformin 1000 mg BID * Trulicity 0.75 mg SQ on Saturdays * A1c = 5.8% 11/03/19 Risk Factors for Insulin Resistance: * IVF:Heparin drip * Diet: NPO - Assessment & Plan Assessment & Plan: ASSESSMENT: * 59-year-old male, PMH OF type 2 diabetes mellitus, JAMES on CPAP, COPD, HTN, PAD, s/p left femoropopliteal bypass, tobacco abuse, recently admitted from 11/02 to 11/08 for cellulitis and vascular occlusion, admitted for left extremity vascular occlusion, on Heparin drip. * Patient known to pharmacy glycemic service from previous admissions, will use similar parameters for insulin. * Patient NPO today, but likely no surgery until Wednesday with Dr Aalnis, will give full dose of basal this morning in anticipation of resuming diet at lunch. * Pt is maintained on oral and non-insulin antidiabetic agents as an outpatient * These agents are not recommended for inpatient use d/t drug interactions, changing PO intake, and difficulty titrating for acute hyper/hypoglycemia. ADA recommends re-initiating outpatient oral agents 1-2 days prior to discharge if/when appropriate if they were held on admission. * ADA & AACE recommend a goal blood sugar range 140-180 mg/dl for the majority of critically ill & non-critically ill patients. However, more stringent targets may be selected in individual cases. Will utilize more stringent goal of 110-140mg/dl based on patient age & comorbidities. Additionally, tighter glycemic control is warranted to facilitate wound/infection healing. PLAN FOR INPATIENT GLYCEMIC CONTROL: * Holding outpatient oral and SQ non-insulin diabetes medications * Basal insulin * Lantus 15 units SQ daily * Bolus insulin * NovoLog per scale ACHS or Q6hrs while NPO * Goal Range: Low 110 mg/dL - High 140 mg/dL * Correction Factor: 25 mg/dL/unit * Nutritional / Prandial insulin per carb ratio of 1 unit per 8 grams CHO consumed * Please note that the plan above was derived based on current level of insulin resistance and hospital stress. These recommendations are appropriate for inpatient admission only. Plan of care upon discharge will need to be reassessed to avoid potential outpatient hypo/hyperglycemia. Thank you.
[2019-11-11] MEDS ORDERED: MoRPHine SULFATE PCA 50 MG/50ML IV SCH (11:15)
[2019-11-11] MEDS ORDERED: NALOXONE HCL 0.4 MG/1 ML VIAL/CARP IV PRN (11:25)
[2019-11-11] MEDS ORDERED: MORPHINE SULFATE PCA 30 MG/30 ML ONE (11:32)
[2019-11-11] MEDS: SODIUM CHLORIDE 0.9% 1000ML 1,000 ML IV SCH (12:01)
[2019-11-11] MEDS: MORPHINE SULFATE PCA 30 MG/30 ML IV PRN ×4 (12:02→20:10)
--- NOTE | 2019-11-11 14:27 | Ultrasound Report ---
US arterial duplex LE BI CLINICAL HISTORY: cold, loss of pulse, bilateral lower extremity pain COMPARISON STUDY: Lower extremity CTA 11/02/2019. FINDINGS: The ankle brachial indices were not obtained due to the patient's pain. There is a left axi llary, bifemoral, and left femoropopliteal graft. The left lower extremity grafts are occluded. Creola kurt peak systolic velocity of 359 cm/s within the right common femoral artery consistent with an area of stenosis. The bilateral superficial femoral artery is are occluded, unchanged. Low velocity monop hasic waveforms seen within the bilateral popliteal arteries and right calf arteries which remain pat ent. The majority of the left calf arteries are occluded with only the distal left posterior tibial a rtery remaining patent. The right femorofemoral graft is patent. IMPRESSION: 1. Overall, no significant change compared to the 11/02/2019 lower extremity CTA. 2. The majority of the left lower extremity tribal arteries and left lower extremity grafts are occlu ded as described above. 3. The right superficial femoral artery remains occluded. The remaining right lower extremity arterie s demonstrate low velocity flow but are patent. ACT 112: Negative or not required by law. Electronically signed by: Manjeet Casas M.D. 11/11/2019 2:25 PM
[2019-11-11 14:30] LABS: Hematocrit (blood only) 42.9 % (42-52); Hemoglobin 13.8 g/dL (14.0-18.0); Mean Corpuscular Hgb Conc 32.2 g/dL (32-36); Mean Corpuscular Volume 96.4 fL (80-100); Mean Platelet Volume 8.8 fL (7.4-10.4); Platelet Count 276 K/uL (130-400); RDW Coefficient of Variation 15.4 % (11.5-14.5); RDW Standard Deviation 54.4 fL (36.4-46.3); Red Blood Count 4.45 M/uL (4.7-6.1); White Blood Count 8.88 K/uL (4.8-10.8)
[2019-11-11 14:59] LABS: Partial Thromboplastin Time 55.1 Seconds (21.0-31.0)
--- NOTE | 2019-11-11 23:01 | Hospitalist Progress Note ---
Date of Service November 11, 2019 Assessment & Plan (1) Vascular occlusion: Kennedy is a 59-year-old male with a past medical history of type 2 diabetes mellitus, JAMES on CPAP, COPD, hypertension, peripheral artery disease status post left femoropopliteal bypass, and tobacco abuse who was recently admitted from 11/02 to 11/08 for cellulitis and vascular occlusion who presents with a cold left foot and who is been admitted for left extremity vascular occlusion. Vascular occlusion Patient with left femoropopliteal bypass with subsequent thrombectomy of left leg bypass and stenting of the left posterior tibial artery on 11/03 Patient presents today with a cold left foot. -Consulted Dr. Alanis. -surgery scheduled for Wednesday. -Concern that patient may need intervention sooner. -Switched arterial doppler order to stat. -switched Morphine to BLENDING OPERATOR dose. -will re eval once doppler is complete is complete. Heparin GTT, monitor for signs of bleeding as below. PTT per protocol. Hold warfarin. Continue wound VAC maintenance of left abdominal site. Continue cilostazol 100 mg p.o. twice daily Oral mucosa bleeding/oozing Report of gums bleeding on transport to [facility]. bums are not bleeding today. 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 at midnight. DVT prophylaxis: Heparin as above CODE STATUS: DNR/DNI. Update: Saw patient in early afternoon Doppler revealed distal posterior tibial artery which was patent. All of the stents had clogged. D/W Dr. Alanis, ok to monitor until Wednesday. Pain has improved but not controlled with BLENDING OPERATOR. will increase dose and recheck patient. Update #2: Saw patient in early afternoon, pain is better controlled. Updated his . (2) Diabetes: (3) Hypertension: (4) JAMES on CPAP: (5) Peripheral arterial disease: (6) Diabetes mellitus, type 2: (7) Tobacco abuse: Subjective 59 yo male reports having significant pain in his left lower extremity. He reports pain in his leg is worse and cold. He feels like the morphine push doses are not helping control his pain. Review of Systems Review of Systems: All systems reviewed & are unremarkable except as noted in HPI & below Physical Exam Physical Exam: General: A&Ox3. NAD. Cooperative. HEENT: Atraumatic, normocephalic. External ear anatomy normal, atraumatic. External nasal anatomy normal, atraumatic. No epistaxis. No nasolabial fold flattening. Oral mucosa moist. no aaron bleeding. No blood in the posterior oropharynx. Pulm: CTAB A&P. Symmetrical chest rise. No increase work of breathing. No respiratory distress. Cardiac: RRR, soft systolic murmur appreciated. Radial pulses intact and symmetrical. Right PT pulse intact to palpation. Left peripheral pulses as noted in extremity exam below. Abdominal: Nontender, nondistended, soft. BS present. Left lower abdomen with wound VAC in place at surgical site, no thymus/warmth/purulence. Extremity: Left lower extremity tenderness to palpation through the left foot. slight pulse is noted on left popliteal. Slight sensation to soft touch at the ankle medial and laterally. D. Left foot cool. Left proximal calf warm. Weak femoral pulse appreciated. Results & Data ([facility]) Vital Signs (Past 12 Hours) Vital Signs Temp Pulse Resp BP Pulse Ox 11/11/19 15:34 36.7 C 88 17 147/84 H 92 PG Care Time/CCT Total # of Minutes Spent Total Time Spent with Patient: Total time spent is greater than 50% in coordination of care (as documented) at patient's floor/unit and/or counseling patient: Prolonged Care Time Prolonged Care Time: Yes Total Prolonged Care Time: 70 From 8:30 to 8:45 From 11:00 to 11:30 from 14:20 to 14:30 from 17:45 to 18:00 Coding Level of Care Code 25764 Subseq Hosp Care Lvl 3 Diagnoses Vascular occlusion I99.8 Diabetes E11.42; Z79.4 Diabetes mellitus complication detail: with polyneuropathy Diabetes mellitus complication status: with neurologic complications Diabetes mellitus group home insulin use: with terminal carman use Diabetes mellitus type: type 2 Hypertension I10 Hypertension type: essential hypertension JAMES on CPAP G47.33; Z99.89 Peripheral arterial disease I73.9 Diabetes mellitus, type 2 E11.51; Z79.4 Diabetes mellitus complication detail: with peripheral angiopathy without gangrene Diabetes mellitus complication status: with circulatory complication Diabetes mellitus group home insulin use: with group home use Tobacco abuse Z72.0 Additional Codes Prolonged Care Time - Prolonged Care Time: Yes ([id number]) Time Spent (min) 70 (1) Diabetes Diabetes mellitus complication detail: with polyneuropathy Diabetes mellitus complication status: with neurologic complications Diabetes mellitus terminal carman insulin use: with terminal carman use Diabetes mellitus type: type 2 Qualified Code(s): E11.42 - Type 2 diabetes mellitus with diabetic polyneuropathy; Z79.4 - ferry terminal agent (current) use of insulin (2) Diabetes mellitus, type 2 Diabetes mellitus complication detail: with peripheral angiopathy without gangrene Diabetes mellitus complication status: with circulatory complication Diabetes mellitus group home insulin use: with terminal carman use Qualified Code(s): E11.51 - Type 2 diabetes mellitus with diabetic peripheral angiopathy without gangrene; Z79.4 - shelter (current) use of insulin (3) Hypertension Hypertension type: essential hypertension Qualified Code(s): I10 - Essential (primary) hypertension
[2019-11-12] MEDS: MORPHINE SULFATE PCA 30 MG/30 ML IV PRN ×2 (00:42→14:14)
[2019-11-12 06:50] LABS: Basophils # (auto) 0.05 K/uL (0-0.2); Basophils % (auto) 0.7 %; Eosinophils % (auto) 2.9 %; Hematocrit (blood only) 41.6 % (42-52); Hemoglobin 13.8 g/dL (14.0-18.0); Immature Granulocytes # (auto) 0.02 K/uL (0.00-0.02); Immature Granulocytes % (auto) 0.3 %; Lymphocytes # (auto) 2.22 K/uL (1.2-3.4); Lymphocytes % (auto) 32.7 %; Mean Corpuscular Hemoglobin 31.3 pg (25-34); Mean Corpuscular Hgb Conc 33.2 g/dL (32-36); Mean Corpuscular Volume 94.3 fL (80-100); Mean Platelet Volume 8.5 fL (7.4-10.4); Monocytes # (auto) 0.59 K/uL (0.11-0.59); Monocytes % (auto) 8.7 %; Neutrophils % (auto) 54.7 %; Platelet Count 287 K/uL (130-400); RDW Standard Deviation 51.7 fL (36.4-46.3); Red Blood Count 4.41 M/uL (4.7-6.1); White Blood Count 6.78 K/uL (4.8-10.8)
[2019-11-12 07:07] LABS: Partial Thromboplastin Ratio 1.8
[2019-11-12 07:10] LABS: Partial Thromboplastin Time 47.8 Seconds (21.0-31.0)
[2019-11-12 07:29] LABS: BUN Creatinine Ratio 23.5 (10-20); Creatinine Clr Calc Pharmacy 190.5 ml/min; Est GFR (African American) 139.6; Est GFR (Non-African American) 120.5; Potassium 3.6 mmol/L (3.5-5.1)
[2019-11-12] MEDS: lisinopriL 20 MG TAB PO SCH (08:54)
[2019-11-12] MEDS: INSULIN GLARGINE SOLOSTAR 100 UNITS/ML 3 ML PEN SC SCH (08:55)
[2019-11-12] MEDS: INSULIN ASPART 100 UNITS/ML 3 ML PEN SC SCH ×4 (09:11→21:21)
[2019-11-12] MEDS: HEPARIN SODIUM/DEXTROSE 25,000 UNITS/500 ML BAG IV SCH (10:06)
--- NOTE | 2019-11-12 23:55 | Hospitalist Progress Note ---
Date of Service November 12, 2019 Assessment & Plan (1) Vascular occlusion: Kennedy is a 59-year-old male with a past medical history of type 2 diabetes mellitus, JAMES on CPAP, COPD, hypertension, peripheral artery disease status post left femoropopliteal bypass, and tobacco abuse who was recently admitted from 11/02 to 11/08 for cellulitis and vascular occlusion who presents with a cold left foot and who is been admitted for left extremity vascular occlusion. Vascular occlusion Patient with left femoropopliteal bypass with subsequent thrombectomy of left leg bypass and stenting of the left posterior tibial artery on 11/03 Patient presents today with a cold left foot. -Consulted Dr. Alanis. -surgery scheduled for Wednesday. -Concern that patient may need intervention sooner. -Switched arterial doppler order to stat. 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 doppler revealed all of the stents were clogged. Distal posterior tibial artery was only artery that was patent Heparin GTT, monitor for signs of bleeding as below. PTT per protocol. Hold warfarin. Continue wound VAC maintenance of left abdominal site. Continue cilostazol 100 mg p.o. twice daily Oral mucosa bleeding/oozing Report of gums bleeding on transport to [facility]. bums are not bleeding today. 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 at midnight. DVT prophylaxis: Heparin as above CODE STATUS: DNR/DNI. (2) Diabetes: (3) Hypertension: (4) JAMES on CPAP: (5) Peripheral arterial disease: (6) Diabetes mellitus, type 2: (7) Tobacco abuse: Subjective Patient states he is very happy today as his pain is better controlled. He also is less stressed as te pulse was easy to find in his lower extremity today. He also feels that it is warmer today. Review of Systems Review of Systems: All systems reviewed & are unremarkable except as noted in HPI & below Physical Exam Physical Exam: General: A&Ox3. NAD. Cooperative. HEENT: Atraumatic, normocephalic. External ear anatomy normal, atraumatic. External nasal anatomy normal, atraumatic. No epistaxis. No nasolabial fold flattening. Oral mucosa moist. no aaron bleeding. No blood in the posterior oropharynx. Pulm: CTAB A&P. Symmetrical chest rise. No increase work of breathing. No respiratory distress. Cardiac: RRR, soft systolic murmur appreciated. Radial pulses intact and symmetrical. Right PT pulse intact to palpation. Left peripheral pulses as noted in extremity exam below. Abdominal: Nontender, nondistended, soft. BS present. Left lower abdomen with wound VAC in place at surgical site, no thymus/warmth/purulence. Extremity: Left lower extremity tenderness to palpation through the left foot. slight pulse is noted on left popliteal. Slight sensation to soft touch at the ankle medial and laterally. D. Left foot warmerl. Left proximal calf warm. Weak femoral pulse appreciated. Results & Data ([facility]) Vital Signs (Past 12 Hours) Vital Signs Temp Pulse Resp BP Pulse Ox 11/12/19 23:06 36.5 C 73 16 134/79 94 11/12/19 19:28 36.6 C 71 14 163/76 H 94 11/12/19 16:33 36.6 C 72 15 132/63 95 PG Care Time/CCT Total # of Minutes Spent Total Time Spent with Patient: Total time spent is greater than 50% in coordination of care (as documented) at patient's floor/unit and/or counseling patient: Coding Level of Care Code 18409 Subseq Hosp Care Lvl 2 Diagnoses Vascular occlusion I99.8 Diabetes E11.42; Z79.4 Diabetes mellitus complication detail: with polyneuropathy Diabetes mellitus complication status: with neurologic complications Diabetes mellitus residential insulin use: with survey field technician use Diabetes mellitus type: type 2 Hypertension I10 Hypertension type: essential hypertension JAMES on CPAP G47.33; Z99.89 Peripheral arterial disease I73.9 Diabetes mellitus, type 2 E11.51; Z79.4 Diabetes mellitus complication detail: with peripheral angiopathy without gangrene Diabetes mellitus complication status: with circulatory complication Diabetes mellitus survey field technician insulin use: with survey field technician use Tobacco abuse Z72.0 Time Spent (min) 25 (1) Diabetes Diabetes mellitus complication detail: with polyneuropathy Diabetes mellitus complication status: with neurologic complications Diabetes mellitus survey field technician insulin use: with residential use Diabetes mellitus type: type 2 Qualified Code( s): E11.42 - Type 2 diabetes mellitus with diabetic polyneuropathy; Z79.4 - long-term (current) use of insulin (2) Diabetes mellitus, type 2 Diabetes mellitus complication detail: with peripheral angiopathy without gangrene Diabetes mellitus complication status: with circulatory complication Diabetes mellitus survey field technician insulin use: with residential use Qualified Code(s): E11.51 - Type 2 diabetes mellitus with diabetic peripheral angiopathy without gangrene; Z79.4 - long-term (current) use of insulin (3) Hypertension Hypertension type: essential hypertension Qualified Code(s): I10 - Essential (primary) hypertension
[2019-11-13] MEDS: MORPHINE SULFATE PCA 30 MG/30 ML IV PRN (03:39)
[2019-11-13] MEDS: HEPARIN SODIUM/DEXTROSE 25,000 UNITS/500 ML BAG IV SCH ×2 (04:14→23:41)
[2019-11-13 05:39] LABS: Basophils # (auto) 0.04 K/uL (0-0.2); Basophils % (auto) 0.7 %; Eosinophils # (auto) 0.26 K/uL (0-0.5); Eosinophils % (auto) 4.4 %; Hematocrit (blood only) 43.4 % (42-52); Hemoglobin 14.2 g/dL (14.0-18.0); Immature Granulocytes # (auto) 0.02 K/uL (0.00-0.02); Immature Granulocytes % (auto) 0.3 %; Lymphocytes # (auto) 2.06 K/uL (1.2-3.4); Lymphocytes % (auto) 34.7 %; Mean Corpuscular Hemoglobin 31.3 pg (25-34); Mean Corpuscular Hgb Conc 32.7 g/dL (32-36); Mean Corpuscular Volume 95.6 fL (80-100); Mean Platelet Volume 8.6 fL (7.4-10.4); Monocytes # (auto) 0.62 K/uL (0.11-0.59); Monocytes % (auto) 10.4 %; Neutrophils # (auto) 2.94 K/uL (1.4-6.5); Neutrophils % (auto) 49.5 %; Platelet Count 253 K/uL (130-400); RDW Standard Deviation 53.2 fL (36.4-46.3); Red Blood Count 4.54 M/uL (4.7-6.1); White Blood Count 5.94 K/uL (4.8-10.8)
[2019-11-13 05:49] LABS: Partial Thromboplastin Ratio 1.4; Partial Thromboplastin Time 38.2 Seconds (21.0-31.0)
[2019-11-13] MEDS ORDERED: HEPARIN IV BOLUS 7,000 UNITS in SYRINGE 0 ML IV ONE (05:54)
[2019-11-13 06:06] LABS: BUN Creatinine Ratio 23.5 (10-20); Calcium 9.3 mg/dl (8.5-10.1); Creatinine Clr Calc Pharmacy 169.7 ml/min; Est GFR (African American) 133.1; Est GFR (Non-African American) 114.9; Potassium 3.8 mmol/L (3.5-5.1)
[2019-11-13 06:20] LABS: INR 1.3 (0.9-1.1)
[2019-11-13] MEDS ORDERED: Nursing to Pharmacy Communication ONE ×2 (07:06→19:59)
--- NOTE | 2019-11-13 08:56 | Pharmacy Report ---
Pharmacy Glycemic Short Note 2 - Date of Service November 13, 2019 - Glycemic Short BSG Results (Last 24 hours): 11/12/19 11/12/19 11/12/19 11:57 17:24 20:57 Glucose POC Glucose 153 H 158 H 161 H 11/13/19 11/13/19 05:29 07:05 Glucose 140 H POC Glucose 145 H ASSESSMENT: 11/13: * Patient received total of 15 units of insulin yesterday, all of which were basal insulin * Patient continuing to refuse novolog insulin / education provided to patient for reasoning for use of novolog while oral agents are on hold * BSGs relatively stable yesterday 153-158-161 mg/dL * Patient NPO this morning for possible thrombectomy - did reduce basal insulin by ~30% for NPO status; plan to add scale on for tonight for additional basal if diet resumes and BSGs rise PLAN FOR INPATIENT GLYCEMIC CONTROL: * Holding outpatient oral and SQ non-insulin diabetes medications * Basal insulin * Lantus 10 units this morning (reduced for NPO status) * Lantus HS per scale - 0 units if BSG <180; 5 units if BSG 180 or greater * Bolus insulin * NovoLog per scale ACHS or Q6hrs while NPO * Goal Range: Low 110 mg/dL - High 140 mg/dL * Correction Factor: 25 mg/dL/unit * Nutritional / Prandial insulin per carb ratio of 1 unit per 8 grams CHO consumed * Please note that the plan above was derived based on current level of insulin resistance and hospital stress. These recommendations are appropriate for inpatient admission only. Plan of care upon discharge will need to be reassessed to avoid potential outpatient hypo/hyperglycemia. Thank you. PLAN FOR DISCHARGE: * A1c of 5.8% - goal <7% in most patient populations * Would recommend continuation of home diabetic medications as long as patient does not report any low BSGs
[2019-11-13] MEDS ORDERED: INSULIN GLARGINE SOLOSTAR 100 UNITS/ML 3 ML PEN SC SCH ×2 (09:00→21:00)
[2019-11-13] MEDS: lisinopriL 20 MG TAB PO SCH (10:26)
[2019-11-13] MEDS ORDERED: VANCOMYCIN CONSULT ACTIVE PRN (11:18)
[2019-11-13] MEDS: INSULIN ASPART 100 UNITS/ML 3 ML PEN SC SCH ×3 (12:27→20:56)
[2019-11-13 12:46] LABS: Partial Thromboplastin Ratio 2.3
[2019-11-13 13:11] LABS: Partial Thromboplastin Time 61.9 Seconds (21.0-31.0)
[2019-11-13] MEDS ORDERED: VANCOMYCIN HCL 1,500 MG in SODIUM CHLORIDE 0.9% 500 ML IV SCH (14:30)
[2019-11-13] MEDS: SODIUM CHLORIDE 0.9% 1000ML 1,000 ML IV SCH ×3 (14:31→20:28)
--- NOTE | 2019-11-13 15:15 | History & Physical Bridge Note ---
Date of Service November 13, 2019 History & Physical Bridge Note Patient for thrombectomy of his left leg bypass. I have discussed the risks options and benefits of the procedure with the patient. The patient understands the risks options and benefits and agrees to the procedure. I have examined the patient, reviewed the History & Physical and in the interval since the performance of the History & Physical I have noted the following changes of clinical significance: no changes noted
[2019-11-13] MEDS ORDERED: ONDANSETRON INJ 2 MG/ML 2 ML VIAL ONE (16:47)
[2019-11-13] MEDS ORDERED: fentaNYL citrate 100 MCG/2 ML VIAL ONE (16:47)
[2019-11-13] MEDS ORDERED: PROPOFOL IV EMULSION 10 MG/ML 20 ML VIAL IV ONE (16:47)
[2019-11-13] MEDS ORDERED: DEXAMETHASONE SOD INJ 4 MG/ML VIAL ONE (16:47)
[2019-11-13] MEDS ORDERED: MIDAZOLAM HCL 1 MG/ML 2ML VIAL ONE (16:47)
[2019-11-13] MEDS ORDERED: LIDOCAINE HCL 2% 2 ML VIAL/AMP(20MG/ML) INFIL ONE (16:47)
[2019-11-13] MEDS ORDERED: CEFAZOLIN 250 MG/ML 1 GM VIAL ONE (17:00)
[2019-11-13] MEDS ORDERED: HEPARIN (PORCINE) 1000 UNIT/ML 10 ML (CATH LAB USE ONLY) ONE (17:00)
[2019-11-13] MEDS ORDERED: IODIXANOL (VISIPAQUE) 270 MG/ML 50ML ONE (17:00)
[2019-11-13] MEDS ORDERED: THROMBIN 5000 UNITS KIT ONE (17:00)
[2019-11-13] MEDS ORDERED: GELATIN SPONGE SZ 100 ONE (17:01)
[2019-11-13] MEDS ORDERED: ATROPINE SULFATE 0.1 MG/ML 10ML SYR IV PRN (17:18)
[2019-11-13] MEDS ORDERED: ONDANSETRON INJ 2 MG/ML 2 ML VIAL IV PRN (17:18)
[2019-11-13] MEDS ORDERED: ePHEDrine sulfate 50 MG/ML AMP IV PRN (17:18)
--- NOTE | 2019-11-13 17:18 | Anesthesiology Consultation ---
Date of Service November 13, 2019 Assessment & Plan (1) Encounter for pre-operative examination: Chart Review Chart Review: Acceptable Risk for Surgery and Patient NOT seen in Pre Admission Testing Consults Requested none ASA ASA4 Proposed Anesthesia Anesthesia Type: General Risk / Benefits Reviewed With: PT / POA / Parent / Guardian, Accepts Plan and Informed Consent Obtained History Surgery Operation Date: 11/13/19 09:30 Proposed Procedures p Left Lower Extremity Thrombectomy - Denis Alanis MD Height/Weight Height: 5 ft 11 in Weight: 91.9 kg Allergies Allergy/AdvReac Type Severity Reaction Status Date / Time Penicillins Allergy Severe THROAT Verified 11/02/19 17:38 SWELLS AND HIVES Medications Home Medications Medication Instructions Recorded Confirmed Last Taken Combivent Respimat 2 puff INHALATION QID PRN 05/01/19 11/02/19 11/02/19 Jardiance 10 mg PO QAM 05/01/19 11/02/19 11/02/19 Reynaldo Perkins U-300 Insulin 15 unit SUBCUT QPM 05/01/19 11/02/19 10/18/19 Trulicity 0.75 mg SUBCUT SA 05/01/19 11/02/19 10/28/19 albuterol sulfate [Ventolin HFA] 2 puff INHALATION QID PRN 05/01/19 11/02/19 11/01/19 aspirin [Cinthia Aspirin] 325 mg PO QAM 05/01/19 11/02/19 11/02/19 cilostazol 100 mg PO BID 05/01/19 11/02/19 11/02/19 gabapentin [Neurontin] 800 mg PO BID 05/01/19 11/02/19 11/02/19 metformin 1,000 mg PO BID 05/01/19 11/02/19 11/02/19 ferrous sulfate 325 mg PO BIDM #60 tab 08/01/19 11/02/19 11/02/19 warfarin [Coumadin] 5 mg PO QDD 10/19/19 11/02/19 10/18/19 lisinopril 20 mg PO QAM #0 tab 10/26/19 11/02/19 11/02/19 hydrocodone-acetaminophen [[place]] 2 tab PO Q6H PRN 11/02/19 11/02/19 Unknown enoxaparin [Lovenox] 120 mg SQ DAILY 5 Days #4 ml 11/08/19 Unknown Active Medications Generic Name Dose Route Start Last Admin Trade Name Freq PRN Reason Stop Dose Admin Heparin Sodium/Dextrose 25,000 units in 500 mls @ 0 mls/hr 11/10/19 23:27 11/13/19 16:31 Heparin Sodium/Dextrose IV 12/10/19 23:26 0 units/hr .Q0M RAFA 0 mls/hr Titration Protocol 0 UNITS/HR Sodium Chloride 1,000 mls @ 15 mls/hr 11/11/19 11:30 11/13/19 16:31 Nss 1000ml IV 11/25/19 11:25 0 mls/hr .Q24H RAFA Infusion Vancomycin HCl 1,500 mg/ 530 mls @ 200 mls/hr 11/13/19 14:30 11/13/19 16:44 Sodium Chloride IV 11/13/19 23:59 200 mls/hr PREOP RAFA Administration Insulin Aspart 0 units 11/13/19 12:00 11/13/19 12:27 Novolog Flexpen SC 12/13/19 11:59 Not Given Q6 RAFA Protocol Lisinopril 20 mg 11/11/19 09:00 11/13/19 10:26 Zestril PO 12/11/19 08:59 20 mg QAM RAFA Administration Morphine Sulfate 30 mg 11/11/19 11:25 11/13/19 03:39 IV 11/25/19 11:24 30 mg PRN PRN Administration 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 MANAGER Pain Titration Protocol NPO Date Last Intake of Fluids: 11/13/19 Time Last Intake of Fluids: 20:00 Date Last Intake of Solids: 11/12/19 Time Last Intake of Solids: 20:00 Past Medical History Medical History Arthritis Chronic back pain Chronic obstructive pulmonary disease Diabetes mellitus, type 2 Diabetic neuropathy, type II diabetes mellitus Diverticulitis (Resolved) History of transfusion Hypertension Neuropathy PVD (peripheral vascular disease) Sleep apnea CPAP HS SOB (shortness of breath) on exertion 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 PER PT LEFT LOWER EXTREMITY ANGIOGRAM, REVISION OF LEFT AXILLARY TO RIGHT FEMORAL BYPASS WITH INTERPOSITION OF BOVINE GRAFT: 07/21/19: Grade view 3, MAC#3, ETT 8 at [facility] History of bowel resection WITH COLOSTOMY/REVERSAL LATER History of right hip replacement S/P femoral-popliteal bypass surgery X 3-LEFT LEG (WOUND DEBRIDEMENT LEFT FOOT) Past Anesthesia History No Hx of Anesthesia Complications and No Family Hx of Anesthesia Complications History of PONV No Hx of PONV and No Hx of Motion Sickness Social History Smoking Status: Former smoker tobacco type: cigarettes Smoking cigarettes per day: 16 Hx Alcohol Use: No Hx Substance Use: No substance use type: marijuana Last Used Substance: Unknown Physical Exam Vital Signs Last Vital Signs Temp 36.8 C 11/13/19 16:40 Pulse 70 11/13/19 16:40 Resp 20 11/13/19 16:40 BP 129/67 11/13/19 16:40 Pulse Ox 95 11/13/19 16:40 ENMT Mouth: no dentition abnormality Thyromental Distance: > or= 3.5 Finger Breadths Mallampati Class: II Neck normal visual inspection and + facial hair Respiratory normal respiratory effort Auscultation: lungs clear to auscultation bilaterally Cardiovascular Rate/Rhythm: regular rate and regular rhythm Chest (Breasts) Additional Comments: abdominal wound vac Musculoskeletal Extremities: + extremities abnormal to inspection (LLE cool, with wound on left heal) Psychiatric Orientation: alert Testing Laboratory Results 11/13/19 05:29 11/13/19 05:29 PT 13.0 Seconds (9.0-12.0) H 11/13/19 05:29 INR 1.3 (0.9-1.1) H 11/13/19 05:29 APTT 61.9 Seconds (21.0-31.0) H* 11/13/19 12:12 11/13/19 11/13/19 11:58 07:05 POC Glucose 134 H 145 H
[2019-11-13] MEDS ORDERED: ePHEDrine sulfate 50 MG/ML SYR ONE (17:48)
[2019-11-13] MEDS ORDERED: HEPARIN SOD (PORCINE) 1000 UNIT/ML 10 ML VIAL ONE (17:48)
--- NOTE | 2019-11-13 17:49 | Hospitalist Progress Note ---
Date of Service November 13, 2019 Assessment & Plan (1) Vascular occlusion: Kennedy is a 59-year-old male with a past medical history of type 2 diabetes mellitus, JAMES on CPAP, COPD, hypertension, peripheral artery disease status post left femoropopliteal bypass, and tobacco abuse who was recently admitted from 11/02 to 11/08 for cellulitis and vascular occlusion who presents with a cold left foot and who is been admitted for left extremity vascular occlusion. Vascular occlusion Patient with left femoropopliteal bypass with subsequent thrombectomy of left leg bypass and stenting of the left posterior tibial artery on 11/03 Patient presents with a cold left foot. Going for the thrombectomy of the left foot bypass graft today. -Consulted Dr. Alanis. 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 doppler revealed all of the stents were clogged. Distal posterior tibial artery was only artery that was patent Heparin GTT, monitor for signs of bleeding as below. PTT per protocol. Hold warfarin. Continue wound VAC maintenance of left abdominal site. Continue cilostazol 100 mg p.o. twice daily Oral mucosa bleeding/oozing Report of gums bleeding on transport to [facility]. bums are not bleeding today. (2) Diabetes: Type 2 diabetes mellitus Last A1c 5.8 BMP daily Insulin glargine 8 units subcu twice daily Insulin SSI, CF 25, ratio 1:8 with goal bsg 110-140 Hold HEALTH PROMOTER hyperglycemics Continue lisinopril 20 mg every morning Present on Admission?: Yes (3) Hypertension: Hypertension JOSE LUIS as above Continue aspirin daily Present on Admission?: Yes (4) JAMES on CPAP: JAMES on CPAP CPAP nightly as needed Present on Admission?: Yes (5) Peripheral arterial disease: As the above Present on Admission?: Yes (6) Tobacco abuse: Refused nicotine patch Present on Admission?: Yes Subjective Patient seen and examined at the bedside. No acute event overnight. Patient is going for surgical procedure of the thrombectomy of his left leg bypass by Dr. Alanis vascular surgery. Patient is aware of risks and benefits and agrees with the procedure. He is n.p.o. after midnight. His left lower extremity is warm but pulses dorsalis pedis are decreased. Patient denies fever, chills, chest pain, shortness of breath, abdominal pain, frequency, urgency. Review of Systems Review of Systems: All systems reviewed & are unremarkable except as noted in HPI & below Physical Exam Constitutional: WD/WN, vitals as above ENMT: Mouth: no dentition abnormality Mallampati Class: II Neck: normal visual inspection and + facial hair Respiratory: normal respiratory effort Auscultation: lungs clear to auscultation bilaterally Cardiovascular: Rate/Rhythm: regular rate and regular rhythm Vessels: posterior tibial pulses present (No Doppler on the left foot) and dorsalis pedis pulses present (no Doppler on the left foot) Extremities: normal capillary refill (Decreased on the left foot) Gastrointestinal (Abdomen): normal bowel sounds, soft, nontender, no hepatosplenomegaly Musculoskeletal: Extremities: + extremities abnormal to inspection (LLE cool, with wound on left heal) Psychiatric: Orientation: alert and oriented x 3 Results & Data ([facility]) Vital Signs (Past 12 Hours) Vital Signs Temp Pulse Resp BP Pulse Ox 11/13/19 16:40 36.8 C 70 20 129/67 95 11/13/19 15:13 36.5 C 69 16 127/79 92 11/13/19 11:14 36.4 C L 70 16 120/74 94 11/13/19 07:12 36.2 C L 73 16 130/81 94 PG Care Time/CCT Total # of Minutes Spent Total Time Spent with Patient: Total time spent is greater than 50% in coordination of care (as documented) at patient's floor/unit and/or counseling patient: Coding Level of Care Code 46405 Subseq Hosp Care Lvl 3 Diagnoses Vascular occlusion I99.8 Diabetes E11.42; Z79.4 Diabetes mellitus type: type 2 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 mellitus 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 helper insulin use: with jail use Diabetes mellitus complication status: with neurologic complications Diabetes mellitus complication detail: with polyneuropathy Hypertension I10 Hypertension type: essential hypertension JAMES on CPAP G47.33; Z99.89 Peripheral arterial disease I73.9 Tobacco abuse Z72.0 (1) Diabetes Diabetes mellitus type: type 2 Diabetes mellitus jail insulin use: with termite 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 helper use Diabetes mellitus complication status: with neurologic complications Diabetes mellitus complication detail: with polyneuropathy Qualified Code(s): E11.42 - Type 2 diabetes mellitus with diabetic polyneuropa thy; Z79.4 - assisted (current) use of insulin (2) Hypertension Hypertension type: essential hypertension Qualified Code(s): I10 - Essential (primary) hypertension
--- NOTE | 2019-11-13 18:46 | Operative Report ---
Post Operative Report Pre & Post Diagnosis Operation Date: 11/13/19 09:30 Pre-Op Diagnosis: ISCHEMIC LEFT FOOT Post-Op Diagnosis: ISCHEMIC LEFT FOOT I identified the patient and participated in the time-out.: Yes Procedure Operation Date: 11/13/19 09:30 Actual Procedures p Left Lower Extremity Bypass graft Thrombectomy, Left lower extremity arterigram(Left) - Denis Alanis MD Surgeon Denis Alanis MD Forestry Support Specialist none Estimated Blood Loss 200 Findings Consistent with Post-Op Diagnosis Specimens none Anesthesia Type General Complications none Disposition Accompanied Patient To Recovery: No Disposition: Recovery Room Indications This is a 59-year-old gentleman who has multiple thrombosis of the left limb of his bypass. This runs from the axillofemoral bypass down to the posterior tibial artery. This time he thrombosed while on Coumadin and Lovenox with an INR 4.2. Thrombectomy was recommended. I have discussed the risks options and benefits of the procedure with the patient. The patient understands the risks options and benefits and agrees to the procedure. Description of Procedure The patient was taken to the operating room and placed in supine position. The left leg was prepped and draped in sterile manner. Patient was identified and timeout was performed. Longitudinal incision was made over the graft in the upper thigh on the lateral aspect. The graft was identified. A transverse graftotomy was performed. Sanjeev catheter was passed up proximally. Large amount of clot was removed. The graft had excellent inflow. We did put an 8 [place]ian sheath in the graft and do a retrograde injection which showed mild narrowing at the arterial anastomosis. The graft was then flushed with heparinized saline and clamped. Next #3 and #4 were passed distally. We had difficulty passing the Sanjeev beyond the stents. We did a good extract a fair amount of clot. At that point we we did a left lower extremity arteriogram usin g the 8 Mal[place]ian sheath distally into the graft through the graftotomy. This showed occlusion at the stent arterial junction. We then use an 018 wire which passed down through the stent and into the posterior tibial artery quickly and easily. Using a #4 [id number] Sanjeev clot was extracted from the artery. Reinjection then showed a small clot still remaining in the proximal posterior tibial artery. The number for Sanjeev was then repassed and a small clot was extracted. Another injection showed a widely patent stent and into the posterior tibial artery. That point the distal end was irrigated with heparinized saline and clamped. The proximal end was re-heparinized with heparinized saline and clamped. The graftotomy was then closed with interrupted CV 6 [place]-Richard sutures. Once this was completed the clamps were removed. Excellent flow was seen through the posterior tibial artery. The foot pinked up nicely and became warmer. There is a good posterior tibial artery Doppler s ignal heard on the foot. Adequate hemostasis was then seen of the graftotomy site. The wound also showed adequate hemostasis. Wound was then closed in usual fashion using running 3-0 Vicryl suture for the subcutaneous layer and freedom for the skin. Sterile dressings were applied to the wound. The patient left the operation room in satisfactory condition and tolerated the procedure well. All needle and sponge counts were correct at the end of the procedure. I attest to the content of the Intraoperative Record and any orders documented therein. Any exceptions are noted below.
[2019-11-13] MEDS: fentaNYL citrate 100 MCG/2 ML VIAL IV PRN ×2 (19:05→19:10)
--- NOTE | 2019-11-13 19:27 | Anesthesiology Progress Note ---
Date of Service November 13, 2019 Anesthesia Post Procedure Vital Signs Vital Signs: Temp Pulse Pulse Resp BP Pulse Ox 11/13/19 19:20 36.6 C 71 18 120/68 96 11/13/19 19:10 68 18 128/77 100 11/13/19 19:00 69 16 154/81 H 98 11/13/19 18:50 36.5 C 75 16 150/82 H 100 11/13/19 16:40 36.8 C 70 20 129/67 95 11/13/19 15:13 36.5 C 69 16 127/79 92 11/13/19 11:14 36.4 C L 70 16 120/74 94 11/13/19 07:12 36.2 C L 73 16 130/81 94 11/13/19 03:30 36.5 C 65 14 148/78 H 91 11/12/19 23:06 36.5 C 73 16 134/79 94 11/12/19 19:28 36.6 C 71 14 163/76 H 94 Pain Intensity Bilateral Leg: Pain Intensity: 8 Transfer of Care Handoff Completed per policy Notes Mental Status: alert / awake / arousable Patient Amnestic to Procedure: Yes Nausea / Vomiting: adequately controlled Pain: adequately controlled Airway Patency, RR, SpO2: stable & adequate BP & HR: stable & adequate Hydration State: stable & adequate Anesthetic Complications: no major complications apparent
[2019-11-13] MEDS: MoRPHine SULFATE 2 MG/ML CARP IV PRN (21:36)
[2019-11-14] MEDS: SODIUM CHLORIDE 0.9% 1000ML 1,000 ML IV SCH (04:54)
[2019-11-14] MEDS: MoRPHine SULFATE 2 MG/ML CARP IV PRN (05:17)
[2019-11-14 07:14] LABS: Partial Thromboplastin Ratio 1.6; Partial Thromboplastin Time 44.7 Seconds (21.0-31.0)
[2019-11-14] MEDS ORDERED: HEPARIN IV BOLUS 3,000 UNITS in SYRINGE 0 ML IV ONE (07:20)
[2019-11-14 07:23] LABS: Albumin Level 3.1 gm/dl (3.4-5.0); BUN Creatinine Ratio 18.7 (10-20); Calcium 8.9 mg/dl (8.5-10.1); Creatinine Clr Calc Pharmacy 176.1 ml/min; Est GFR (African American) 135.2; Est GFR (Non-African American) 116.6; Potassium 3.8 mmol/L (3.5-5.1)
[2019-11-14 07:26] LABS: Albumin Globulin Ratio 0.8 (0.9-2); Bilirubin,Total 0.4 mg/dl (0.2-1); Globulin 3.7 gm/dl (2.5-4.0); Total Protein 6.8 gm/dl (6.4-8.2)
[2019-11-14 07:50] LABS: Basophils # (auto) 0.03 K/uL (0-0.2); Basophils % (auto) 0.4 %; Eosinophils # (auto) 0.15 K/uL (0-0.5); Hematocrit (blood only) 42.5 % (42-52); Hemoglobin 13.8 g/dL (14.0-18.0); Immature Granulocytes # (auto) 0.02 K/uL (0.00-0.02); Immature Granulocytes % (auto) 0.3 %; Lymphocytes # (auto) 1.34 K/uL (1.2-3.4); Lymphocytes % (auto) 17.6 %; Mean Corpuscular Hemoglobin 31.3 pg (25-34); Mean Corpuscular Hgb Conc 32.5 g/dL (32-36); Mean Corpuscular Volume 96.4 fL (80-100); Mean Platelet Volume 9.1 fL (7.4-10.4); Monocytes # (auto) 0.65 K/uL (0.11-0.59); Monocytes % (auto) 8.5 %; Neutrophils # (auto) 5.44 K/uL (1.4-6.5); Neutrophils % (auto) 71.2 %; Platelet Count 275 K/uL (130-400); RDW Standard Deviation 52.9 fL (36.4-46.3); Red Blood Count 4.41 M/uL (4.7-6.1); White Blood Count 7.63 K/uL (4.8-10.8)
--- NOTE | 2019-11-14 08:17 | Anesthesiology Progress Note ---
Date of Service November 14, 2019 Anesthesia Post Procedure Vital Signs Vital Signs: Temp Pulse Pulse Resp BP Pulse Ox 11/14/19 07:42 36.4 C L 76 16 124/76 96 11/14/19 03:27 36.6 C 75 18 136/82 96 11/13/19 22:34 36.6 C 71 16 123/73 96 11/13/19 21:34 36.5 C 73 16 116/73 97 11/13/19 20:38 36.3 C L 81 18 125/77 98 11/13/19 20:05 36.8 C 66 13 118/74 97 11/13/19 19:35 36.8 C 70 14 115/74 91 11/13/19 19:20 36.6 C 71 18 120/68 96 11/13/19 19:10 68 18 128/77 100 11/13/19 19:00 69 16 154/81 H 98 11/13/19 18:50 36.5 C 75 16 150/82 H 100 11/13/19 16:40 36.8 C 70 20 129/67 95 11/13/19 15:13 36.5 C 69 16 127/79 92 11/13/19 11:14 36.4 C L 70 16 120/74 94 Pain Intensity Bilateral Leg: Pain Intensity: 8 Left Foot: Pain Intensity: 9 Notes Mental Status: alert / awake / arousable and participated in evaluation Patient Amnestic to Procedure: Yes Nausea / Vomiting: see Notes below Pain: adequately controlled Airway Patency, RR, SpO2: stable & adequate BP & HR: stable & adequate Hydration State: stable & adequate Anesthetic Complications: no major complications apparent and Pt Satisfied with anesthetic care
[2019-11-14] MEDS ORDERED: INSULIN GLARGINE SOLOSTAR 100 UNITS/ML 3 ML PEN SC SCH (09:00)
--- NOTE | 2019-11-14 09:03 | Hospitalist Progress Note ---
Date of Service November 14, 2019 Assessment & Plan (1) Vascular occlusion: Vascular occlusion Patient with left femoropopliteal bypass with subsequent thrombectomy of left leg bypass and stenting of the left posterior tibial artery on 11/03 Patient presents with a cold left foot. S/p POD #1 thrombectomy of the left foot bypass graft. Improving slowly. -Consulted Dr. Alanis. 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 -doppler revealed all of the stents were clogged. - Distal posterior tibial artery was only artery that was patent Heparin GTT, monitor for signs of bleeding as below. PTT per protocol. Hold warfarin. Continue wound VAC maintenance of left abdominal site. Continue cilostazol 100 mg p.o. twice daily Oral mucosa bleeding/oozing Report of gums bleeding on transport to [facility]. bums are not bleeding today. 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 No acute event overnight. Patient does not have any new complain. Resting in the bed.Patient denies fever, chills, chest pain, shortness of breath, abdominal pain, frequency, urgency. Review of Systems Review of Systems: All systems reviewed & are unremarkable except as noted in HPI & below Physical Exam Constitutional: WD/WN, vitals as above ENMT: Mouth: no dentition abnormality Mallampati Class: II Neck: normal visual inspection and + facial hair Respiratory: normal respiratory effort Auscultation: lungs clear to auscultation bilaterally Cardiovascular: Rate/Rhythm: regular rate and regular rhythm Vessels: posterior tibial pulses present (No Doppler on the left foot) and dorsalis pedis pulses present (no Doppler on the left foot) Extremities: normal capillary refill (Decreased on the left foot) Gastrointestinal (Abdomen): normal bowel sounds, soft, nontender, no hepatosplenomegaly Musculoskeletal: Extremities: + extremities abnormal to inspection (LLE cool, with wound on left heal) Psychiatric: Orientation: alert and oriented x 3 Results & Data ([facility]) Vital Signs (Past 12 Hours) Vital Signs Temp Pulse Resp BP Pulse Ox 11/14/19 07:42 36.4 C L 76 16 124/76 96 11/14/19 03:27 36.6 C 75 18 136/82 96 11/13/19 22:34 36.6 C 71 16 123/73 96 11/13/19 21:34 36.5 C 73 16 116/73 97 PG Care Time/CCT Total # of Minutes Spent Total Time Spent with Patient: Total time spent is greater than 50% in coordination of care (as documented) at patient's floor/unit and/or counseling patient: Coding Level of Care Code 42124 Subseq Hosp Care Lvl 3 Diagnoses Vascular occlusion I99.8 Diabetes E11.42; Z79.4 Diabetes mellitus complication detail: with polyneuropathy Diabetes mellitus complication status: with neurologic complications Diabetes mellitus chcf insulin use: with chcf use Diabetes mellitus type: type 2 Hypertension I10 Hypertension type: essential hypertension JAMES on CPAP G47.33; Z99.89 Peripheral arterial disease I73.9 Tobacco abuse Z72.0 (1) Diabetes Diabetes mellitus complication detail: with polyneuropathy Diabetes mellitus complication status: with neurologic complications 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
[2019-11-14] MEDS: lisinopriL 20 MG TAB PO SCH (09:09)
[2019-11-14] MEDS: INSULIN GLARGINE SOLOSTAR 100 UNITS/ML 3 ML PEN SC SCH (09:10)
[2019-11-14] MEDS: INSULIN ASPART 100 UNITS/ML 3 ML PEN SC SCH ×4 (09:10→21:25)
[2019-11-14] MEDS ORDERED: ACETAMINOPHEN 500 MG TAB PO PRN (09:11)
--- NOTE | 2019-11-14 09:28 | Surgery Progress Note ---
Date of Service November 14, 2019 Assessment & Plan (1) Vascular graft occlusion: Pt doing well post op. Has reperfusion pain L foot, possibly with some element of neuropathy. Continue on heparin drip. Consult hematology. Subjective 59 yo m POD #1 after open thrombectomy of LLE fem-tib BPG, seen in f/u today. Pt admits pain in L foot, but denies any other new complaints. Review of Systems Review of Systems: All systems reviewed & are unremarkable except as noted in HPI & below Physical Exam Constitutional: WD/WN, vitals as above Cardiovascular: Rate/Rhythm: regular rate and regular rhythm Vessels: posterior tibial pulses present (+ doppler LLE); + abnormal peripheral pulses Extremities: normal capillary refill and + edema (L foot/toes erythematous, warm, tender) Skin: + wound (L abd wound vac in place) and + incision (L lateral thigh C/D/I with freedom, old incision C/D/I as well.) Psychiatric: A+Ox3, euthymic affect Results & Data Vital Signs (Past 12 Hours) Vital Signs Temp Pulse Resp BP Pulse Ox 11/14/19 07:42 36.4 C L 76 16 124/76 96 11/14/19 03:27 36.6 C 75 18 136/82 96 11/13/19 22:34 36.6 C 71 16 123/73 96 11/13/19 21:34 36.5 C 73 16 116/73 97
[2019-11-14] MEDS: OXYCODONE/ACETAMINOPHEN 5mg/325mg TAB PO PRN ×3 (09:44→20:02)
[2019-11-14] MEDS: HEPARIN SODIUM/DEXTROSE 25,000 UNITS/500 ML BAG IV SCH ×3 (09:45→14:38)
[2019-11-14] MEDS: CLOPIDOGREL BISULFATE 75 MG TAB PO SCH (10:52)
--- NOTE | 2019-11-14 13:45 | Pharmacy Report ---
Pharmacy Glycemic Short Note 2 - Date of Service November 14, 2019 - Glycemic Short BSG Results (Last 24 hours): 11/13/19 11/13/19 11/14/19 18:57 19:41 06:30 Glucose 139 H POC Glucose 102 H 127 H 11/14/19 08:05 Glucose POC Glucose 173 H ASSESSMENT: 11/14: * Patient received total of 10 units of insulin yesterday, all of which basal insulin * Patient had been NPO for vascular graft occlusion - today POD 1 * Patient refusing novolog insulin again today - will plan to add metformin on for this evening for prandial BSG coverage. Did confirm with nurse patient eating all of meals/no issues with po intake at this time 11/13: * Patient received total of 15 units of insulin yesterday, all of which were basal insulin * Patient continuing to refuse novolog insulin / education provided to patient for reasoning for use of novolog while oral agents are on hold * BSGs relatively stable yesterday 153-158-161 mg/dL * Patient NPO this morning for possible thrombectomy - did reduce basal insulin by ~30% for NPO status; plan to add scale on for tonight for additional basal if diet resumes and BSGs rise PLAN FOR INPATIENT GLYCEMIC CONTROL: * Holding outpatient oral and SQ non-insulin diabetes medications - Plan to restart metformin 11/14 with dinner * Basal insulin * Lantus 15 units daily (outpatient dose) * Bolus insulin - remove CR with dinner * NovoLog per scale ACHS or Q6hrs while NPO * Goal Range: Low 110 mg/dL - High 140 mg/dL * Correction Factor: 30 mg/dL/unit * Nutritional / Prandial insulin per carb ratio of 1 unit per -- grams CHO consumed * Please note that the plan above was derived based on current level of insulin resistance and hospital stress. These recommendations are appropriate for inpatient admission only. Plan of care upon discharge will need to be reassessed to avoid potential outpatient hypo/hyperglycemia. Thank you.
[2019-11-14 14:25] LABS: Partial Thromboplastin Ratio 1.8
[2019-11-14 14:33] LABS: Partial Thromboplastin Time 49.6 Seconds (21.0-31.0)
--- NOTE | 2019-11-14 15:07 | Consultation ---
Date of Consultation November 14, 2019 Assessment & Plan (1) Vascular occlusion: Asked to provide opinion on the anticoagulation status of this 59 year old man with severe peripheral vascular disease. Patient is known to me from a previous referral for warfarin management, however we jointly decided that his local PCP should be able to manage him as he lives over 2 hours away. Patient has a complicated vascular history. He had a left femoral to profunda bypass in Jun 2019. In July, he was admitted to [facility] for revision of the infected graft. In early September he was admitted for revision of a right axillobifemoral graft, removal of an exposed L graft and abdominal wound debrid ement. In late September, he presented to the [facility] for right leg ischemia and was [place] [facility] [place] (I cannot find any records of what was done). October 19 he presented with pain in the lower extremities and an arterial US showed extensive atherosclerotic plaque with occlusion of the left common femoral aa with patency of the bypass graft to the L posterior tibial artery and decreased blood flow distally. He was also noted to have occlusion of the distal right common femoral artery and superficial femoral arteries. He was discharged from [facility] with a therapeutic INR. On Nov 02, he presented with a cold left foot, painful and swollen. He was found to have a completely occluded stent in the left superior femoral artery and the left superior femoral artery occluded to the mid popliteal artery and the right superior femoral artery occluded to the proximal popliteal artery. He was placed on a heparin drip and underwent thrombectomy of the left leg bypas graft and stenting of the left posterior tibial artery. He was discharged on an appropriate dose of enoxaparin and Coumadin. Two days later, with no reported missed enoxaparin doses and a supratherapeutic INR, he presents with a mottled, cold left foot and underwent thrombectomy. He is currently on IV heparin. The presence of a hypercoagulable state contributing to this patient's ongoing thrombotic issues is certainly a valid clinical consideration. This would most likely be an acquired thrombophilia and to address this I have ordered anticardiolipin, antiphospholipid and beta 2 glycoprotein antibodies, all of which are pending. Lupus anticoagulant testing is not valid when the patient is on heparin anticoagulation. I have recommended to Dr. Alanis and Dr. Oden that hematology be consulted, and that is being done. As far as anticoagulation, I would continue the IV heparin infusion with a goal aPTT at the higher end of the therapeutic range. Given the results of the recent TRAPS study, which examined the use of rivaroxaban in patients with antiphospholipid antibodies, I would recommend against using a DOAC in this patient until the results of his pending lab tests are resulted and are found to be negative. Please don't hesitate to contact me with questions. [phone] (2) Vascular graft occlusion: History of Present Illness Attending Physician: Holley Oden MD Allergies Allergy/AdvReac Type Severity Reaction Status Date / Time Penicillins Allergy Severe THROAT Verified 11/02/19 17:38 SWELLS AND HIVES Home Medications Home Medications Medication Instructions Recorded Confirmed Type Combivent Respimat 2 puff INHALATION QID PRN 05/01/19 11/02/19 History Jardiance 10 mg PO QAM 05/01/19 11/02/19 History Toujeo SoloStar U-300 Insulin 15 unit SUBCUT QPM 05/01/19 11/02/19 History Trulicity 0.75 mg SUBCUT SA 05/01/19 11/02/19 History albuterol sulfate [Ventolin HFA] 2 puff INHALATION QID PRN 05/01/19 11/02/19 History aspirin [Cinthia Aspirin] 325 mg PO QAM 05/01/19 11/02/19 History cilostazol 100 mg PO BID 05/01/19 11/02/19 History gabapentin [Neurontin] 800 mg PO BID 05/01/19 11/02/19 History metformin 1,000 mg PO BID 05/01/19 11/02/19 History ferrous sulfate 325 mg PO BIDM #60 tab 08/01/19 11/02/19 Rx warfarin [Coumadin] 5 mg PO QDD 10/19/19 11/02/19 History lisinopril 20 mg PO QAM #0 tab 10/26/19 11/02/19 Rx hydrocodone-acetaminophen [[place]] 2 tab PO Q6H PRN 11/02/19 11/02/19 History enoxaparin [Lovenox] 120 mg SQ DAILY 5 Days #4 ml 11/08/19 Rx Patient History Medical History Arthritis Chronic back pain Chronic obstructive pulmonary disease Diabetes mellitus, type 2 Diabetic neuropathy, type II diabetes mellitus Diverticulitis (Resolved) History of transfusion Hypertension Neuropathy PVD (peripheral vascular disease) Sleep apnea CPAP HS SOB (shortness of breath) on exertion 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 PER PT LEFT LOWER EXTREMITY ANGIOGRAM, REVISION OF LEFT AXILLARY TO RIGHT FEMORAL BYPASS WITH INTERPOSITION OF BOVINE GRAFT: 07/21/19: Grade view 3, MAC#3, ETT 8 at [facility] History of bowel resection WITH COLOSTOMY/REVERSAL LATER History of right hip replacement S/P femoral-popliteal bypass surgery X 3-LEFT LEG (WOUND DEBRIDEMENT LEFT FOOT) Family History Mother Family history of diabetes mellitus Uncle Family history of diabetes mellitus Social History Preferred Language: Sami Communication Ability: Effective Event Specialist Required: No Beliefs That Will Affect Care: None marital status: Current Living Situation: Spouse Current Living Situation Comment: only Other Information That Helps Us Care for You: No Feels Safe at Home: Yes Safety Concerns: Feels Safe At This Time Smoking Status: Former smoker Tobacco Type: cigarettes ; Cigarettes Per Day: 16 ; Second Hand Exposure: No ; Tobacco Cessation Education Requested by Patient: No Hx Alcohol Use: No Hx Substance Use: No Results & Data Vital Signs (Past 12 Hours) Vital Signs Temp Pulse Resp BP Pulse Ox 11/14/19 10:47 36.7 C 73 16 123/73 90 11/14/19 07:42 36.4 C L 76 16 124/76 96 11/14/19 03:27 36.6 C 75 18 136/82 96
--- NOTE | 2019-11-14 15:26 | Consultation ---
Date of Consultation November 14, 2019 History of Present Illness Attending Physician: Holley Oden MD Allergies Allergy/AdvReac Type Severity Reaction Status Date / Time Penicillins Allergy Severe THROAT Verified 11/02/19 17:38 SWELLS AND HIVES Home Medications Home Medications Medication Instructions Recorded Confirmed Type Combivent Respimat 2 puff INHALATION QID PRN 05/01/19 11/02/19 History Jardiance 10 mg PO QAM 05/01/19 11/02/19 History Toujeo SoloStar U-300 Insulin 15 unit SUBCUT QPM 05/01/19 11/02/19 History Trulicity 0.75 mg SUBCUT SA 05/01/19 11/02/19 History albuterol sulfate [Ventolin HFA] 2 puff INHALATION QID PRN 05/01/19 11/02/19 History aspirin [Cinthia Aspirin] 325 mg PO QAM 05/01/19 11/02/19 History cilostazol 100 mg PO BID 05/01/19 11/02/19 History gabapentin [Neurontin] 800 mg PO BID 05/01/19 11/02/19 History metformin 1,000 mg PO BID 05/01/19 11/02/19 History ferrous sulfate 325 mg PO BIDM #60 tab 08/01/19 11/02/19 Rx warfarin [Coumadin] 5 mg PO QDD 10/19/19 11/02/19 History lisinopril 20 mg PO QAM #0 tab 10/26/19 11/02/19 Rx hydrocodone-acetaminophen [[place]] 2 tab PO Q6H PRN 11/02/19 11/02/19 History enoxaparin [Lovenox] 120 mg SQ DAILY 5 Days #4 ml 11/08/19 Rx Patient History Medical History Arthritis Chronic back pain Chronic obstructive pulmonary disease Diabetes mellitus, type 2 Diabetic neuropathy, type II diabetes mellitus Diverticulitis (Resolved) History of transfusion Hypertension Neuropathy PVD (peripheral vascular disease) Sleep apnea CPAP HS SOB (shortness of breath) on exertion 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 PER PT LEFT LOWER EXTREMITY ANGIOGRAM, REVISION OF LEFT AXILLARY TO RIGHT FEMORAL BYPASS WITH INTERPOSITION OF BOVINE GRAFT: 07/21/19: Grade view 3, MAC#3, ETT [address] [facility] History of bowel resection WITH COLOSTOMY/REVERSAL LATER History of right hip replacement S/P femoral-popliteal bypass surgery X 3-LEFT LEG (WOUND DEBRIDEMENT LEFT FOOT) Family History Mother Family history of diabetes mellitus Uncle Family history of diabetes mellitus Social History Preferred Language: Kenyan Communication Ability: Effective Plate Straightener Required: No Beliefs That Will Affect Care: None marital status: Current Living Situation: Spouse Current Living Situation Comment: only Other Information That Helps Us Care for You: No Feels Safe at Home: Yes Safety Concerns: Feels Safe At This Time Smoking Status: Former smoker Tobacco Type: cigarettes ; Cigarettes Per Day: 16 ; Second Hand Exposure: No ; Tobacco Cessation Education Requested by Patient: No Hx Alcohol Use: No Hx Substance Use: No Results & Data Vital Signs (Past 12 Hours) Vital Signs Temp Pulse Resp BP Pulse Ox 11/14/19 10:47 36.7 C 73 16 123/73 90 11/14/19 07:42 36.4 C L 76 16 124/76 96 11/14/19 03:27 36.6 C 75 18 136/82 96
[2019-11-14] MEDS: METFORMIN HCL 500 MG TAB PO SCH (18:02)
[2019-11-15] MEDS: OXYCODONE/ACETAMINOPHEN 5mg/325mg TAB PO PRN ×5 (01:04→22:24)
[2019-11-15] MEDS: HEPARIN SODIUM/DEXTROSE 25,000 UNITS/500 ML BAG IV SCH ×2 (05:44→18:53)
[2019-11-15 06:24] LABS: Basophils # (auto) 0.05 K/uL (0-0.2); Basophils % (auto) 0.8 %; Eosinophils # (auto) 0.17 K/uL (0-0.5); Eosinophils % (auto) 2.7 %; Hematocrit (blood only) 43.1 % (42-52); Hemoglobin 14.2 g/dL (14.0-18.0); Immature Granulocytes # (auto) 0.01 K/uL (0.00-0.02); Immature Granulocytes % (auto) 0.2 %; Lymphocytes # (auto) 2.13 K/uL (1.2-3.4); Lymphocytes % (auto) 34.4 %; Mean Corpuscular Hemoglobin 31.5 pg (25-34); Mean Corpuscular Hgb Conc 32.9 g/dL (32-36); Mean Corpuscular Volume 95.6 fL (80-100); Mean Platelet Volume 8.6 fL (7.4-10.4); Monocytes # (auto) 0.56 K/uL (0.11-0.59); Neutrophils # (auto) 3.28 K/uL (1.4-6.5); Neutrophils % (auto) 52.9 %; Platelet Count 272 K/uL (130-400); RDW Coefficient of Variation 14.9 % (11.5-14.5); RDW Standard Deviation 51.9 fL (36.4-46.3); Red Blood Count 4.51 M/uL (4.7-6.1)
[2019-11-15 06:49] LABS: Partial Thromboplastin Ratio 1.7
[2019-11-15 06:56] LABS: Partial Thromboplastin Time 46.2 Seconds (21.0-31.0)
[2019-11-15 07:00] LABS: Albumin Level 3.2 gm/dl (3.4-5.0); BUN Creatinine Ratio 15.2 (10-20); Calcium 9.1 mg/dl (8.5-10.1); Creatinine Clr Calc Pharmacy 141.4 ml/min; Est GFR (African American) 123.5; Est GFR (Non-African American) 106.6; Potassium 3.6 mmol/L (3.5-5.1)
[2019-11-15 07:03] LABS: Albumin Globulin Ratio 0.8 (0.9-2); Bilirubin,Total 0.3 mg/dl (0.2-1); Globulin 4.1 gm/dl (2.5-4.0); Total Protein 7.3 gm/dl (6.4-8.2)
--- NOTE | 2019-11-15 07:35 | Hospitalist Progress Note ---
Date of Service November 15, 2019 Assessment & Plan (1) Vascular occlusion: Vascular occlusion Patient with left femoropopliteal bypass with subsequent thrombectomy of left leg bypass and stenting of the left posterior tibial artery on 11/03 Patient presents with a cold left foot. S/p POD #1 thrombectomy of the left foot bypass graft. Improving slowly. -Consulted Dr. Alanis. -continue Morphine SITE SPECIALIST. -doppler revealed all of the stents were clogged. - Distal posterior tibial artery was only artery that was patent Heparin GTT, monitor for signs of bleeding as below. PTT per protocol. Hold warfarin. Continue wound VAC maintenance of left abdominal site. Continue cilostazol 100 mg p.o. twice daily Oral mucosa bleeding/oozing Report of gums bleeding on transport to [facility]. bums are not bleeding today. 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 Dr. Santiago consulted-hem/onc. Present on Admission?: Yes Subjective Patient seen and examined at the bedside. No acute event overnight. Patient does not have any new complain. Resting in the bed.Patient denies fever, chills, chest pain, shortness of breath, abdominal pain, frequency, urgency. Review of Systems Review of Systems: All systems reviewed & are unremarkable except as noted in HPI & below Physical Exam Constitutional: WD/WN, vitals as above ENMT: Mouth: no dentition abnormality Mallampati Class: II Neck: normal visual inspection and + facial hair Respiratory: normal respiratory effort Auscultation: lungs clear to auscultation bilaterally Cardiovascular: Rate/Rhythm: regular rate and regular rhythm Vessels: posterior tibial pulses present (No Doppler on the left foot) and dorsalis pedis pulses present (no Doppler on the left foot) Extremities: normal capillary refill (Decreased on the left foot) Gastrointestinal (Abdomen): normal bowel sounds, soft, nontender, no hepatosplenomegaly Musculoskeletal: Extremities: + extremities abnormal to inspection (LLE cool, with wound on left heal) Psychiatric: Orientation: alert and oriented x 3 Results & Data ([facility]) Vital Signs (Past 12 Hours) Vital Signs Temp Pulse Resp BP Pulse Ox 11/14/19 23:15 36.4 C L 75 18 124/74 95 PG Care Time/CCT Total # of Minutes Spent Total Time Spent with Patient: Total time spent is greater than 50% in coordination of care (as documented) at patient's floor/unit and/or counseling patient: Coding Diagnoses Vascular occlusion I99.8 Diabetes E11.42; Z79.4 Diabetes mellitus complication detail: with polyneuropathy Diabetes mellitus complication status: with neurologic complications Diabetes mellitus retirement insulin use: with retirement use Diabetes mellitus type: type 2 Hypertension I10 Hypertension type: essential hypertension JAMES on CPAP G47.33; Z99.89 Peripheral arterial disease I73.9 Tobacco abuse Z72.0 Stenosis of peripheral vascular stent T82.856A (1) Diabetes Diabetes mellitus complication detail: with polyneuropathy Diabetes mellitus complication status: with neurologic complications 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
[2019-11-15] MEDS: lisinopriL 20 MG TAB PO SCH (08:02)
[2019-11-15] MEDS: METFORMIN HCL 500 MG TAB PO SCH ×2 (08:03→18:03)
[2019-11-15] MEDS: CLOPIDOGREL BISULFATE 75 MG TAB PO SCH (08:04)
[2019-11-15] MEDS: INSULIN ASPART 100 UNITS/ML 3 ML PEN SC SCH ×4 (09:58→21:18)
[2019-11-15] MEDS: INSULIN GLARGINE SOLOSTAR 100 UNITS/ML 3 ML PEN SC SCH (10:00)
--- NOTE | 2019-11-15 10:45 | Pharmacy Report ---
Pharmacy Glycemic Short Note 2 - Date of Service November 15, 2019 - Glycemic Short BSG Results (Last 24 hours): 11/14/19 11/14/19 11/14/19 12:00 17:27 20:27 Glucose POC Glucose 203 H 189 H 190 H 11/15/19 11/15/19 06:04 08:31 Glucose 136 H POC Glucose 162 H ASSESSMENT: 11/15: * Patient received total of 15 units of insulin yesterday, all of which were basal insulin * Fasting BSG this am w/in range at 136 mg/dL * Metformin added yesterday therefore CR removed 11/14: * Patient received total of 10 units of insulin yesterday, all of which basal insulin * Patient had been NPO for vascular graft occlusion - today POD 1 * Patient refusing novolog insulin again today - will plan to add metformin on for this evening for prandial BSG coverage. Did confirm with nurse patient eating all of meals/no issues with po intake at this time 11/13: * Patient received total of 15 units of insulin yesterday, all of which were basal insulin * Patient continuing to refuse novolog insulin / education provided to patient for reasoning for use of novolog while oral agents are on hold * BSGs relatively stable yesterday 153-158-161 mg/dL * Patient NPO this morning for possible thrombectomy - did reduce basal insulin by ~30% for NPO status; plan to add scale on for tonight for additional basal if diet resumes and BSGs rise PLAN FOR INPATIENT GLYCEMIC CONTROL: * Holding outpatient oral and SQ non-insulin diabetes medications - Plan to restart metformin 11/14 with dinner * Basal insulin * Lantus 15 units daily (outpatient dose) * Bolus insulin - remove CR with dinner * NovoLog per scale ACHS or Q6hrs while NPO * Goal Range: Low 110 mg/dL - High 140 mg/dL * Correction Factor: 30 mg/dL/unit * Nutritional / Prandial insulin per carb ratio of 1 unit per -- grams CHO consumed * Please note that the plan above was derived based on current level of insulin resistance and hospital stress. These recommendations are appropriate for inpatient admission only. Plan of care upon discharge will need to be reassessed to avoid potential outpatient hypo/hyperglycemia. Thank you.
--- NOTE | 2019-11-15 18:47 | Hospitalist Progress Note ---
Date of Service November 15, 2019 Assessment & Plan (1) Vascular occlusion: Vascular occlusion -Probable Stenosis of peripheral vascular stent, possibly due to hypercoagulable state. -Consulted Dr. Vogel, hem/onc. Patient with left femoropopliteal bypass with subsequent thrombectomy of left leg bypass and stenting of the left posterior tibial artery on 11/03 Patient presents with a cold left foot. S/p POD #1 thrombectomy of the left foot bypass graft. Improving slowly. -Consulted Dr. Alanis. -continue Morphine LOANS CONSULTANT. -doppler revealed all of the stents were clogged. - Distal posterior tibial artery was only artery that was patent Heparin GTT, monitor for signs of bleeding as below. PTT per protocol. Hold warfarin. Continue wound VAC maintenance of left abdominal site. Continue cilostazol 100 mg p.o. twice daily Oral mucosa bleeding/oozing Report of gums bleeding on transport to [facility]. bums are not bleeding today. (2) Diabetes: Type 2 diabetes mellitus Last A1c 5.8 BMP daily Insulin glargine 8 units subcu twice daily Insulin SSI, CF 25, ratio 1:8 with goal bsg 110-140 Hold PSYCHOLOGICAL OPERATIONS hyperglycemics Continue lisinopril 20 mg every morning (3) Hypertension: Hypertension JOSE LUIS as above Continue aspirin daily (4) JAMES on CPAP: JAMSE on CPAP CPAP nightly as needed (5) Peripheral arterial disease: As the above (6) Tobacco abuse: Refused nicotine patch (7) Stenosis of peripheral vascular stent: Probable Stenosis of peripheral vascular stent due to hypercoagulable state Risk Factors: Repeat vascular procedures, PVD, DM, tobacco abuse and or hypercoagulable state. Dr. Santiago consulted-hem/onc. Subjective Patient seen and examined at the bedside. He feels better and stated that he would like to be discharged home. P.o. intake is improving. Patient reports less lower extremity pain. Patient denies fever, chills, chest pain, shortness of breath, frequency, urgency. There is still question about patient hypercoagulable state and the mode of anticoagulation that we should utilize in his care specifically. I spoke to Dr. Flores she recommended to speak to Dr. Ritchie Levy rand cementer oncologist. Patient is afebrile. Review of Systems Review of Systems: All systems reviewed & are unremarkable except as noted in HPI & below Physical Exam Constitutional: WD/WN, vitals as above ENMT: Mouth: no dentition abnormality Mallampati Class: II Neck: normal visual inspection and + facial hair Respiratory: normal respiratory effort Auscultation: lungs clear to auscultation bilaterally Cardiovascular: Rate/Rhythm: regular rate and regular rhythm Vessels: posterior tibial pulses present (No Doppler on the left foot) and dorsalis pedis pulses present (no Doppler on the left foot) Extremities: normal capillary refill (Decreased on the left foot) and + edema (L foot/toes erythematous, warm, tender) Gastrointestinal (Abdomen): normal bowel sounds, soft, nontender, no hepatosplenomegaly Musculoskeletal: no cyanosis or clubbing, extremities motor strength 5/5 Skin: + wound (L abd wound vac in place) and + incision (L lateral thigh C/D/I with freedom, old incision C/D/I as well.) Psychiatric: A+Ox3, euthymic affect Orientation: alert and oriented x 3 Results & Data ([facility]) Vital Signs (Past 12 Hours) Vital Signs Temp Pulse Resp BP Pulse Ox 11/15/19 15:04 36.7 C 80 16 130/76 96 11/15/19 08:35 36.4 C L 86 19 150/88 H 93 PG Care Time/CCT Total # of Minutes Spent Total Time Spent with Patient: Total time spent is greater than 50% in coordination of care (as documented) at patient's floor/unit and/or counseling patient: Coding Level of Care Code 42843 Subseq Hosp Care Lvl 3 Diagnoses Vascular occlusion I99.8 Diabetes E11.42; Z79.4 Diabetes mellitus type: type 2 Diabetes mellitus termination clerk insulin use: with fdc use Diabetes mellitus complication status: with neurologic complications Diabetes mellitus complication detail: with polyneuropathy Hypertension I10 Hypertension type: essential hypertension JAMES on CPAP G47.33; Z99.89 Peripheral arterial disease I73.9 Tobacco abuse Z72.0 Stenosis of peripheral vascular stent T82.856A (1) Diabetes Diabetes mellitus type: type 2 Diabetes mellitus termination clerk insulin use: with fdc use Diabetes mellitus complication status: with neurologic complications Diabetes mellitus complication detail: with polyneuropathy Qualified Code(s): E11.42 - Type 2 diabetes mellitus with diabetic polyneuropathy; Z79.4 - correction (current) use of insulin (2) Hypertension Hypertension type: essential hypertension Qualified Code(s): I10 - Essential (primary) hypertension
[2019-11-16 06:53] LABS: Basophils # (auto) 0.04 K/uL (0-0.2); Basophils % (auto) 0.7 %; Eosinophils # (auto) 0.22 K/uL (0-0.5); Eosinophils % (auto) 3.7 %; Hematocrit (blood only) 43.2 % (42-52); Hemoglobin 14.6 g/dL (14.0-18.0); Immature Granulocytes # (auto) 0.02 K/uL (0.00-0.02); Immature Granulocytes % (auto) 0.3 %; Lymphocytes # (auto) 1.85 K/uL (1.2-3.4); Lymphocytes % (auto) 31.4 %; Mean Corpuscular Hemoglobin 31.5 pg (25-34); Mean Corpuscular Hgb Conc 33.8 g/dL (32-36); Mean Corpuscular Volume 93.3 fL (80-100); Mean Platelet Volume 8.3 fL (7.4-10.4); Monocytes # (auto) 0.53 K/uL (0.11-0.59); Neutrophils # (auto) 3.24 K/uL (1.4-6.5); Neutrophils % (auto) 54.9 %; Platelet Count 306 K/uL (130-400); RDW Coefficient of Variation 14.9 % (11.5-14.5); RDW Standard Deviation 50.6 fL (36.4-46.3); Red Blood Count 4.63 M/uL (4.7-6.1)
[2019-11-16] MEDS: HEPARIN SODIUM/DEXTROSE 25,000 UNITS/500 ML BAG IV SCH (07:13)
[2019-11-16 07:20] LABS: Albumin Level 3.3 gm/dl (3.4-5.0); BUN Creatinine Ratio 15.4 (10-20); Calcium 9.4 mg/dl (8.5-10.1); Creatinine Clr Calc Pharmacy 150.5 ml/min; Est GFR (African American) 126.7; Est GFR (Non-African American) 109.3; Potassium 3.5 mmol/L (3.5-5.1)
[2019-11-16 07:23] LABS: Albumin Globulin Ratio 0.8 (0.9-2); Bilirubin,Total 0.3 mg/dl (0.2-1); Total Protein 7.3 gm/dl (6.4-8.2)
[2019-11-16 07:25] LABS: Partial Thromboplastin Time 55.2 Seconds (21.0-31.0)
--- NOTE | 2019-11-16 07:58 | Oncology Consultation ---
Date of Consultation November 15, 2019 Assessment & Plan (1) Peripheral arterial disease: Mr. Alegria has been readmitted numerous times over the last few months for recurring thrombosis of bilateral LE arterial grafts. He has extensive and severe PAD. He has had an ongoing abdominal wound infection and continues to smoke. He has also been hospitalized more or less continuously since September and undergone multiple surgeries in that time. All of these issues are risk factors for thrombosis. He has no family history of thrombotic disorders and no history of thrombosis himself prior to this series of events. He has had multiple recent CTs that reveal no suggestion of occult malignancy. His CBC is normal, making myeloproliferative neoplasia and TOBY unlikely. Dr. Akbar's suggestion to screen him for APLS is a reasonable one, though those studies may take some time. Still, I think these episodes are more related to the above- discussed issues rather than a thrombotic diathesis. In terms of management of his recurring events, one option might be to change or add to his anti-platelet regimen. He is on ASA but might benefit from Plavix, particularly as these have been arterial rather than venous thrombotic events. He might benefit from a different anticoagulant as well, such as a DOAC if we confirm the absence of APLS. However, it might be easier to manage him with a titratable anticoagulant like warfarin if we are also going to put him on dual anti-platelet therapy. Another option, at least in the short term, would be Lovenox. Present on Admission?: Yes History of Present Illness Reason for Consultation: Recurring arterial thrombosis Attending Physician: Imani Espinoza DO History of Present Illness Mr. Alegria is a 59 year old smoker with a history of COPD, DM, CKD, HTN, and severe PAD. He had a left femoral to profunda bypass graft in June. In July, the graft became infected and required revision. In September, he underwent revision of a right axillobifemoral graft and removal of an exposed L graft, along with debridement of an abdominal wound. He presented again later that month for right leg ischemia. He was transferred to [facility] for thrombectomy of the newly placed right bypass. On 10/19, he presented with pain in the lower extremities. Imaging revealed occlusion of the limb of his left axillary bifemoral bypass graft to the left common femoral artery, along with occlusion of the distal right common femoral artery and superficial femoral arteries. He was admitted for debridement of his abdominal wound and placement of a wound VAC, so management of these occlusions was deferred. He was discharged from that stay with a therapeutic INR. 11/02, he was admitted with a cold left foot. He was found to have a completely occluded stent in the left superior femoral artery and the left superior femoral artery occluded to the mid popliteal artery and the right superior femoral artery occluded to the proximal popliteal artery. He underwent a thrombectomy on the following day. He was discharged on 11/08 with significantly improved symptoms, but was re-admitted 11/11 with sudden recurrence of his left leg pain and a cold foot. An arterial duplex did not show significant change from the prior study, on 11/02, but he was found to have a large amount of clot during a thrombectomy on 11/13. He had a therapeutic INR on both 11/08 and 11/10. His leg was still quite tender during our encounter. He was frustrated and very anxious to go home. He denies any history of thromboembolism prior to this series of events. He denies any family history of thrombotic disorders. He continues to smoke and has done so throughout this entire sequence of hospitalizations. He denies any bleeding or bruising and has tolerated warfarin well in general. He had no headaches, vision changes, shortness of breath, chest pain, or abdominal pain today. Allergies Allergy/AdvReac Type Severity Reaction Status Date / Time Penicillins Allergy Severe THROAT Verified 11/02/19 17:38 SWELLS AND HIVES Home Medications Home Medications Medication Instructions Recorded Confirmed Type Combivent Respimat 2 puff INHALATION QID PRN 05/01/19 11/02/19 History Jardiance 10 mg PO QAM 05/01/19 11/02/19 History Toujeo SoloStar U-300 Insulin 15 unit SUBCUT QPM 05/01/19 11/02/19 History Trulicity 0.75 mg SUBCUT SA 05/01/19 11/02/19 History albuterol sulfate [Ventolin HFA] 2 puff INHALATION QID PRN 05/01/19 11/02/19 History aspirin [Cinthia Aspirin] 325 mg PO QAM 05/01/19 11/02/19 History cilostazol 100 mg PO BID 05/01/19 11/02/19 History gabapentin [Neurontin] 800 mg PO BID 05/01/19 11/02/19 History metformin 1,000 mg PO BID 05/01/19 11/02/19 History ferrous sulfate 325 mg PO BIDM #60 tab 08/01/19 11/02/19 Rx warfarin [Coumadin] 5 mg PO QDD 10/19/19 11/02/19 History lisinopril 20 mg PO QAM #0 tab 10/26/19 11/02/19 Rx hydrocodone-acetaminophen [[place]] 2 tab PO Q6H PRN 11/02/19 11/02/19 History enoxaparin [Lovenox] 120 mg SQ DAILY 5 Days #4 ml 11/08/19 Rx Patient History Medical History Arthritis Chronic back pain Chronic obstructive pulmonary disease Diabetes mellitus, type 2 Diabetic neuropathy, type II diabetes mellitus Diverticulitis (Resolved) History of transfusion Hypertension Neuropathy PVD (peripheral vascular disease) Sleep apnea CPAP HS SOB (shortness of breath) on exertion 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 PER PT LEFT LOWER EXTREMITY ANGIOGRAM, REVISION OF LEFT AXILLARY TO RIGHT FEMORAL BYPASS WITH INTERPOSITION OF BOVINE GRAFT: 07/21/19: Grade view 3, MAC#3, ETT 8 at [facility] History of bowel resection WITH COLOSTOMY/REVERSAL LATER History of right hip replacement S/P femoral-popliteal bypass surgery X 3-LEFT LEG (WOUND DEBRIDEMENT LEFT FOOT) Family History Mother Family history of diabetes mellitus Uncle Family history of diabetes mellitus Social History Preferred Language: Hebrew Communication Ability: Effective Order Editor Required: No Beliefs That Will Affect Care: None marital status: Current Living Situation: Spouse Current Living Situation Comment: only Other Information That Helps Us Care for You: No Feels Safe at Home: Yes Safety Concerns: Feels Safe At This Time Smoking Status: Former smoker Tobacco Type: cigarettes ; Cigarettes Per Day: 16 ; Second Hand Exposure: No ; Tobacco Cessation Education Requested by Patient: No Hx Alcohol Use: No Hx Substance Use: No Review of Systems Review of Systems: All systems reviewed & are unremarkable except as noted in HPI & below Physical Exam Constitutional: healthy appearing and comfortable; no acute distress ENMT: external ear and nose normal, oropharynx normal Respiratory: normal respiratory effort, lungs clear to auscultation Cardiovascular: RRR, no murmur, no edema Gastrointestinal (Abdomen): Inspection/Auscultation: normal bowel sounds Percussion/Palpation: abdomen soft; abdomen nontender Musculoskeletal: His left lower extremity was warm but exquisitely tender. Psychiatric: A+Ox3, euthymic affect Results & Data Vital Signs (Past 12 Hours) Vital Signs Temp Pulse Resp BP Pulse Ox 11/16/19 07:20 36.8 C 82 18 174/80 H 97 11/15/19 23:25 36.9 C 79 18 129/76 98 Laboratory Results Laboratory Tests 11/07/19 11/08/19 11/10/19 07:07 07:40 23:49 INR 1.2 H 1.8 H 3.4 H 11/13/19 05:29 INR 1.3 H Diagnostic Findings He's had CTs of his chest, abdomen, and pelvis in the last month that reveal no suggestion of occult malignancy
[2019-11-16] MEDS: OXYCODONE/ACETAMINOPHEN 5mg/325mg TAB PO PRN ×2 (09:01→12:59)
[2019-11-16] MEDS: INSULIN GLARGINE SOLOSTAR 100 UNITS/ML 3 ML PEN SC SCH (09:03)
[2019-11-16] MEDS: METFORMIN HCL 500 MG TAB PO SCH (09:03)
[2019-11-16] MEDS: lisinopriL 20 MG TAB PO SCH (09:18)
[2019-11-16] MEDS: CLOPIDOGREL BISULFATE 75 MG TAB PO SCH (09:18)
[2019-11-16] MEDS: INSULIN ASPART 100 UNITS/ML 3 ML PEN SC SCH ×2 (09:57→13:34)
[2019-11-16] MEDS ORDERED: CLOPIDOGREL BISULFATE 75 MG TAB PO SCH (10:00)
--- NOTE | 2019-11-16 11:21 | Discharge Summary ---
Date of Service November 16, 2019 Admission HPI Per Admitting Provider Kennedy is a 59-year-old male with a past medical history of type 2 diabetes mellitus, JAMES on CPAP, COPD, hypertension, peripheral artery disease status post left femoropopliteal bypass, and tobacco abuse who was recently admitted from 11/02 to 11/08 for cellulitis and vascular occlusion who presents with a cold left foot and who is been admitted for vascular evaluation and intervention. Kennedy reports that after returning home from the hospital 2 days ago he continued to have pain in his left foot, but was otherwise doing well. During his previous admission he had a thrombectomy of the left bypass with left posterior tibial artery stenting on 11/03 and was discharged on a Lovenox to warfarin bridge with follow-up to vascular in 2 weeks. Wednesday night he had no pain at all in his foot, and morning he continued to have no pain but noticed his foot was very cold and mottled. He had been taking his Lovenox bridge as directed but had an INR that was elevated to 4.5 which subsequently decreased to 3.5 and [place] after holding a dose of warfarin. He presented with the above complaint to [place] and was noted to have no left-sided popliteal or PT pulses and was transferred to for further vascular care. Case was discussed prior to admission with Dr. Alanis who recommended heparin gtt. overnight with vascular follow-up in the morning. Kennedy reports numbness in the left foot, but no tingling. He reports his gums were noted to be bleeding on the way to [facility] and in the setting of heparin administration and a supratherapeutic INR. Heparin was held at that time. Patient denies other symptoms. Past medical history: Reviewed in EMR Past surgical history: Reviewed in EMR Medications: Reviewed, up-to-date in EMR Principal Diagnosis Pt is doing well. He is adamant for d/c today. He has been ambulating without much issue. Ongoing pain related to L LE, but better. Tolerating PO without issue. Pt denies fever, SOB, chest pain, abd pain, n/v/c/d, LE swelling. Pt is concerned that he will be losing his insurance on 12/11 secondary to recent unemployment. He states he has 4-5 lovenox injections at home still. He has a wound vac at home. Discharge Exam Constitutional WD/WN, vitals as above Eyes normal visual marlow by confrontation and + anicteric sclerae Neck normal visual inspection and trachea midline Respiratory normal respiratory effort, lungs clear to auscultation Cardiovascular Rate/Rhythm: regular rate and regular rhythm Gastrointestinal (Abdomen) Inspection/Auscultation: abdomen not distended Percussion/Palpation: abdomen soft; abdomen nontender Musculoskeletal Head/Neck/Chest: normocephalic and head atraumatic Skin no rashes, warm and dry Neurologic awake; not confused Speech / Cognition: normal speech Psychiatric A+Ox3, euthymic affect Discharge Data Allergies Allergy/AdvReac Type Severity Reaction Status Date / Time Penicillins Allergy Severe THROAT Verified 11/02/19 17:38 SWELLS AND HIVES Consultations 11/10/19 23:11 Consult Vascular Surgery Routine 11/13/19 19:43 Consult Hematology Routine 11/14/19 08:00 Consult Case Management - Discharge Planning Routine 11/14/19 14:28 Consult Hematology Routine Procedures Performed Operation Date: 11/13/19 09:30 Actual Procedures p Left Lower Extremity Bypass graft Thrombectomy(Left) - Denis Alanis MD Ordered Studies 11/11/19 11:32 US arterial duplex LE BI Stat 11/13/19 16:54 EV angio LE LT Routine Hospital Course (1) Vascular occlusion: Vascular occlusion -Probable Stenosis of peripheral vascular stent, possibly due to hypercoagulable state. -Consulted Dr. Vogel, hem/onc. Patient with left femoropopliteal bypass with subsequent thrombectomy of left leg bypass and stenting of the left posterior tibial artery on 11/03 and was d/c'd to home on 11/08 Patient presented to the ED on 11/10 with a cold left foot. S/p thrombectomy of the left foot bypass graft on 11/[address] Alanis after doppler revealed all of the stents were clogged. - Distal posterior tibial artery was only artery that was patent Heme recs for d/c on asa/plavix and lovenox while awaiting coag panel--will see in office next week to discuss results and determine further anticoagulation needs Continue wound VAC maintenance of left abdominal site, pt has at home prior Continue cilostazol 100 mg p.o. 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 Dr. Santiago consulted-hem/onc. Total Time Total Time Spent Total Time Spent (In Minutes): >30 Total Time Includes: Examination of the Patient, Discharge Planning, Medication Reconciliation, Communication With Other Providers and Other Discharge Plan Discharge Items Patient Disposition: Home - Home Health Services Reason For Visit: ISCHEMIC FOOT Discharge Diagnosis: Ischemic foot Activity: Resume your previous activity Activity Comment: As per Dr. Alanis Non-emergency contact: Primary Care Provider and Surgeon Call non-emergency contact if: you have any medication questions, your symptoms worsen and your pain is not controlled Follow-up/Referrals: John Vogel [Physician] - (Please, follow up with Dr. Vogel (container maker). *A nurse from this office is to call you with appointment information. The office is located in the rear of this [facility]. You will park BEHIND the hospital in [address] and enter via [employer] and [employer]. If you have any questions, call the office at [phone].) Denis Alanis MD [Physician] - 11/23/19 2:10 pm (next week) Luis Lemon M.D. [Primary Care Provider] - 11/24/19 11:40 am Diet: Carb Consistent or DM2 Addtl Attending Provider Instructions: You should cut back or completely quit smoking. This will help with your wound healing process. It will also make you less likely to have thick blood, which will make clots less likely. Addtl Spot Welder Line Provider Instructions: You mentioned that you will lose your insurance in December. It is recommended that you contact the [facility] Assistance Office as soon as possible to start the process of obtaining Medical Assistance. [facility] Assistance Office [address] [place] [address] OFFICE HOURS: 8 a.m.-5 p.m. Toll-Free: LIHEAP: [phone] FAX: [phone] Pending Studies at Discharge: Yes Studies:: hypercoaguable labs Stand-Alone Forms: My [facility] [employer] website, Smoking Cessation Medications and DC Order Prescriptions: New clopidogrel 75 mg Tablet 75 mg PO QAM Qty: 30 RF: 0 oxycodone-acetaminophen [Percocet] 5-325 mg Tablet 1 - 2 tab PO Q4H PRN (Reason: pain) Qty: 30 RF: 0 enoxaparin [Lovenox] 120 mg/0.8 mL syringe 120 mg SQ DAILY 10 Days Qty: 8 RF: 1 aspirin 81 mg tablet,delayed release (DR/EC) 81 mg PO DAILY Qty: 30 RF: 0 Continued cilostazol 100 mg Tablet 100 mg PO BID RF: 0 gabapentin [Neurontin] 800 mg Tablet 800 mg PO BID RF: 0 Trulicity 0.75 mg/0.5 mL Pen Injector 0.75 mg SUBCUT SA RF: 0 Toujeo SoloStar U-300 Insulin 300 unit/mL (1.5 mL) Insulin Pen 15 unit SUBCUT QPM RF: 0 metformin 1,000 mg Tablet 1,000 mg PO BID RF: 0 albuterol sulfate [Ventolin HFA] 90 mcg/actuation Hfa Aerosol Inhaler 2 puff INHALATION QID PRN (Reason: Shortness Of Breath) RF: 0 Jardiance 10 mg Tablet 10 mg PO QAM RF: 0 Combivent Respimat 20-100 mcg/actuation Mist 2 puff inhalation QID PRN (Reason: Shortness Of Breath Or Wheezing) RF: 0 lisinopril 40 mg Tablet 20 mg PO QAM Qty: 0 RF: 0 ferrous sulfate 325 mg (65 mg iron) Tablet,Delayed Release (Dr/Ec) 325 mg PO BIDM Qty: 60 RF: 0 hydrocodone-acetaminophen [[place]] 5-325 mg tablet 2 tab PO Q6H PRN (Reason: Pain) RF: 0 Discontinued aspirin [Cinthia Aspirin] 325 mg Tablet 325 mg PO QAM RF: 0 warfarin [Coumadin] 5 mg tablet 5 mg PO QDD RF: 0 Discharge Orders: Discharge Order (Routine); Ordered 11/16/19 Ordered By: Imani Espinoza Admission Data Admit Date/Time: 11/10/19 21:32 Attending Provider: Imani Espinoza Admit Provider: Jen Mark Primary Care Provider: Luis Lemon Other Providers: [facility] ; Denis Alanis ; Izabella Akbar ; John Vogel Other Interventions: Discharge Summary Assessment (RN) Last Done: 11/16/19 14:19 DC Date/Time DO NOT enter until pt leaves facility: 11/16/19 15:21 Coding Level of Care Code D/C Day Management >30 mins Diagnoses Vascular occlusion I99.8 Diabetes E11.42; Z79.4 Diabetes mellitus complication detail: with polyneuropathy Diabetes mellitus complication status: with neurologic complications Diabetes mellitus tank terminal gauger insulin use: with tank terminal gauger use Diabetes mellitus type: type 2 Hypertension I10 Hypertension type: essential hypertension JAMES on CPAP G47.33; Z99.89 Peripheral arterial disease I73.9 Tobacco abuse Z72.0 Stenosis of peripheral vascular stent T82.856A
[2019-11-16] MEDS ORDERED: ENOXAPARIN INJ 120 MG/0.8 ML SYR SQ ONE (11:45)
[2019-11-16 13:58] LABS: Anti Cardiolipin Ab IgG <14 GPL; Anti Cardiolipin Ab IgM <12 MPL; Anti-Cardiolipin Ab IgA <11 APL
[2019-11-18 00:14] LABS: B2 Glycoprotein IgA <9 SAU (<=20); B2 Glycoprotein IgG <9 SGU (<=20); B2 Glycoprotein IgM <9 SMU (<=20); Phosphatidylserine IgG 12 U/mL (<10); Phosphatidylserine IgM <25 U/mL (<25)
== END 2019-11-16 15:21 | disposition home health service (06) | DRG 254 ==
LOC: SUATTDRO 21:32 → 3N 21:32